=== PATIENT | male | born 1985 | race Caucasian/White ===

== ENCOUNTER 2020-04-22 15:42 | Emergency (ER) | payer OTHER, SELFPAY ==
[2020-04-22 15:43] VITALS: BP 133/70; PULSE 84; RESP 18; TEMP 36.6; O2SAT 97; BMI 29.5
--- NOTE | 2020-04-22 15:49 | XR_ITS ---
EXAMINATION: XR CHEST CLINICAL INFORMATION: Shortness of breath COMPARISON: 02/13/2020 TECHNIQUE: 2 views of the chest were obtained. FINDINGS: Since the prior exam, the right-sided infiltrate has completely resolved. At this point in time, no significant abnormality is noted involving the heart, lungs, mediastinum, bony thorax or soft tissues. IMPRESSION: Unremarkable examination. Resolved right pneumonia.
--- NOTE | 2020-04-22 17:26 | ED_ITS ---
HPI - URI/Sore Throat General Chief Complaint: Upper Respiratory Symptoms Stated Complaint: cough,rib pain,sore throat Time Seen by Provider: 04/22/20 17:26 Source: patient Mode of arrival: ambulatory Limitations: no limitations History of Present Illness HPI Narrative: 34-year-old male presents with chest pain, chest pain with inspiration, shortness of breath with exertion, weakness, and fatigue. He reports that he was diagnosed with pneumonia recently, completed the course of antibiotics, felt a bit better for short period of time and now is feeling worse. He states he feels like he is pale, has a sore throat, cough, and burning stabbing pain in his chest when he takes a deep breath. He does have a history of AFib, does not report any sick contacts and was tested negative for COVID-19 at the time he was diagnosed with pneumonia approximately 1 month ago. He feels that he goes in and out of palpations particularly on exertion, and shortness of breath and chest pain increases as he walks. He does not report any abdominal pain, abdominal distention, dysuria, hematuria, fevers, chills, nausea, vomiting, diarrhea, constipation, and edema. MD elicited complaint: cough and sore throat Pertinent past history: pneumonia Onset (ago): day(s) ( Several) Consistency: intermittent and progressively worsening Severity: moderate Pain scale (0-10): 6 Description of mucous: clear Able to tolerate fluids by mouth: Yes Exacerbating factors: exertion, deep breaths and leaning forward Relieving factors: nothing Associated symptoms: cough, chest pain and shortness of breath Treatments prior to arrival: none Related Data Previous Rx's Medication Instructions Recorded tramadol 50 mg PO Q8H PRN #7 tab 04/22/20 Allergies Allergy/AdvReac Type Severity Reaction Status Date / Time diphenhydramine Allergy Unknown AGITATION Unverified 03/30/20 18:56 [From BENADRYL] metoclopramide [From REGLAN] Allergy Unknown AGITATION Unverified 03/30/20 18:56 prochlorperazine Allergy Unknown AGITATION Unverified 03/30/20 18:56 [From COMPAZINE] compazine Allergy Unknown Uncoded 08/11/19 00:00 IV benadryl Allergy Unknown Uncoded 08/11/19 00:00 reglan Allergy Unknown Uncoded 08/11/19 00:00 Review of Systems Review of Systems: Constitutional: No Weight loss, No Fever, No Chills, No Night Sweats, No Fatigue, No Malaise ENT/Mouth: No Hearing loss, No Ear Pain, No Nasal Congestion, No Sinus Pain, No Hoarseness, No sore throat, No Rhinorrhea, No Swallowing Difficulty Eyes: No Eye Pain, No Swelling, No Redness, No Foreign Body, No Discharge, No Vision Changes Cardiovascular: pos Chest Pain, pos SOB, positive shortness of breath and increased chest pain on exertion with palpitations, No Orthopnea, No Edema Respiratory: positive Cough with clear Sputum, No Wheezing, No Smoke Exposure Gastrointestinal: epigastric abdominal pain, no Nausea, No Vomiting, No Diarrhea, No Hematochezia, No Melena Genitourinary: No irregular bleeding, No Dysuria, No Urinary Frequency, No Hematuria, No Urinary Incontinence, No Urgency, No Flank Pain, No Urinary Flow Changes, No Hesitancy Musculoskeletal: No joint pain, No Myalgias, No Joint Swelling Skin: No Skin Lesions, No rash Neuro: No Weakness, No Numbness, No Paresthesias, No Loss of Consciousness, No Dizziness, No Headache Psych: No Anxiety/Panic, No Depression, No SI/HI/AH/VH Heme/Lymph: No Bruising, No Bleeding,No Lymphadenopathy Endocrine: No Polyuria, No Polydipsia, No Temperature Intolerance PMFSH Past Medical History Attestation statement: The following information was validated with the patient. Source: old records reviewed Medical History Afib Anxiety Depression GERD (gastroesophageal reflux disease) Pneumonia Social History Social History Advance Directives: No Advance Directives Information Provided: Yes Physical Exam Vital Signs: Vital Signs: Vital Signs Temp Pulse Resp BP Pulse Ox 04/22/20 22:25 90 16 145/86 H 99 04/22/20 19:48 82 18 145/81 H 99 04/22/20 15:43 97.9 F 84 18 133/70 97 Body Mass Index 29.5 Appearance: Alert. Oriented X3. mild distress, pallor. Eyes: Pupils equal, round and reactive to light. ENT: Pharynx normal. Neck: Normal inspection. Neck supple. CVS: Normal heart rate and rhythm. Pulses normal. Respiratory: chest pain on inspiration, No respiratory distress. Breath sounds normal. Abdomen: Soft and nontender. Skin: Skin warm and dry. Normal skin color. Normal skin turgor. Extremities: No lower extremity edema. No lower extremity edema. Neuro: Oriented X 3. No motor deficit. No sensory deficit. Course Course Course Narrative: as patient was recently diagnosed with pneumonia, symptoms subsided and now have recurred and he feels worse, we will rule out ACS, pneumonia, PE. H&H is 13.7/41.2 consistent with lab values dating back to December 28, 2018, ALT in alk-phos are elevated 61 and 188 which is consistent with prior values dating back to 10/14/2018. CT angio is negative, patient was updated on this result. Detailed description regarding his need for follow-up with primary care provider for elevated liver enzymes and anemia. Patient verbalized understanding of and agrees to plan of care discharge home. MDM - URI/Sore Throat MDM Narrative Medical decision making narrative: ACS, PE Differential Diagnosis Differential diagnosis: Likely upper respiratory infection and bronchitis Medical Records Attestation: I reviewed the patient's medical records. Lab Data Attestation: I reviewed the patient's lab results. Result diagrams: 04/22/20 17:58 04/22/20 17:58 Labs: Lab Results 04/22/20 04/22/20 04/22/20 Range/Units 17:57 17:58 17:58 WBC 6.4 (4.8-10.8) X10*3/uL RBC 4.97 (4.60-5.80) X10*6/uL Hgb 13.7 L (14.0-18.0) g/dl Hct 41.2 L (42-52) % MCV 82.9 (80-98) fL MCH 27.6 (27.0-33.0) pg MCHC 33.3 (31.0-36.0) g/dl RDW 13.5 (11.0-16.0) % Plt Count 249 (160-400) X10*3/uL MPV 8.4 L (9.4-12.4) fL Immature Gran % (Auto) 0.3 (0.0-0.4) % Neut % (Auto) 64.2 (45-73) % Lymph % (Auto) 26.0 (20-40) % Rogers % (Auto) 7.5 (2-11) % Eos % (Auto) 1.7 (0-4) % Baso % (Auto) 0.3 (0-2) % Lymph # (Auto) 1.7 (1.2-4.9) X10*3/uL Rogers # (Auto) 0.5 (0.1-1.2) X10*3/uL Eos # (Auto) 0.1 (0.0-0.4) X10*3/uL Baso # (Auto) 0.0 (0.0-0.2) X10*3/uL Abs Immat Gran (auto) 0.02 (0.00-0.03) X10*3/uL Absolute Neuts (auto) 4.1 (2.0-8.3) X10*3/uL Absolute Nucleated RBC 0.000 (0.0-0.012) X10*3/uL Nucleated RBC % (auto) 0.0 (0.0-0.2) /100WBC Sodium 140 (135-145) mmol/L Potassium 3.9 (3.3-5.1) mmol/l Chloride 105 (96-108) mmol/L Carbon Dioxide 27 (22-29) mmol/L Anion Gap 12 (12-20) BUN 11 (9-16) mg/dL Creatinine 0.81 (0.5-1.4) mg/dL Estim Creat Clear Calc 140.3 Estimated GFR > 60 Random Glucose 89 (60-115) mg/dL Lactic Acid 0.8 (0.5-2.0) mmol/L Calcium 9.0 (8.4-10.2) mg/dL Magnesium 2.4 (1.6-2.6) mg/dL Total Bilirubin 0.3 (0.0-1.0) mg/dL Direct Bilirubin < 0.2 (0.0-0.5) mg/dL AST 22 (5-37) U/L ALT 61 H (0-40) U/L Alkaline Phosphatase 188 H (39-117) U/L Troponin I High Sens (<3.5-35.0) ng/L Total Protein 6.7 (6.5-8.0) g/dL Albumin 4.2 (3.5-5.0) g/dL Lipase 11 (8-78) U/L TSH 1.52 (0.32-4.0) mIU/mL 04/22/20 Range/Units 17:58 WBC (4.8-10.8) X10*3/uL RBC (4.60-5.80) X10*6/uL Hgb (14.0-18.0) g/dl Hct (42-52) % MCV (80-98) fL MCH (27.0-33.0) pg MCHC (31.0-36.0) g/dl RDW (11.0-16.0) % Plt Count (160-400) X10*3/uL MPV (9.4-12.4) fL Immature Gran % (Auto) (0.0-0.4) % Neut % (Auto) (45-73) % Lymph % (Auto) (20-40) % Rogers % (Auto) (2-11) % Eos % (Auto) (0-4) % Baso % (Auto) (0-2) % Lymph # (Auto) (1.2-4.9) X10*3/uL Rogers # (Auto) (0.1-1.2) X10*3/uL Eos # (Auto) (0.0-0.4) X10*3/uL Baso # (Auto) (0.0-0.2) X10*3/uL Abs Immat Gran (auto) (0.00-0.03) X10*3/uL Absolute Neuts (auto) (2.0-8.3) X10*3/uL Absolute Nucleated RBC (0.0-0.012) X10*3/uL Nucleated RBC % (auto) (0.0-0.2) /100WBC Sodium (135-145) mmol/L Potassium (3.3-5.1) mmol/l Chloride (96-108) mmol/L Carbon Dioxide (22-29) mmol/L Anion Gap (12-20) BUN (9-16) mg/dL Creatinine (0.5-1.4) mg/dL Estim Creat Clear Calc Estimated GFR Random Glucose (60-115) mg/dL Lactic Acid (0.5-2.0) mmol/L Calcium (8.4-10.2) mg/dL Magnesium (1.6-2.6) mg/dL Total Bilirubin (0.0-1.0) mg/dL Direct Bilirubin (0.0-0.5) mg/dL AST (5-37) U/L ALT (0-40) U/L Alkaline Phosphatase (39-117) U/L Troponin I High Sens < 3.5 (<3.5-35.0) ng/L Total Protein (6.5-8.0) g/dL Albumin (3.5-5.0) g/dL Lipase (8-78) U/L TSH (0.32-4.0) mIU/mL Imaging Data CT scan - chest: Attestation: I personally reviewed and interpreted this imaging study as follows: Radiologist's impression: FINDINGS: QUALITY OF STUDY/CONTRAST BOLUS: Satisfactory. PULMONARY ARTERIES: No central or segmental pulmonary emboli. THORACIC AORTA: No aneurysm or dissection. LUNG: No focal consolidation, nodules or masses. PLEURA: No pleural effusion or pneumothorax. MEDIASTINUM: Normal heart size. No pericardial effusion. No hilar or mediastinal lymphadenopathy. No evidence of septal bowing or right heart strain. CHEST WALL/AXILLA: No axillary or internal mammary lymphadenopathy. OSSEOUS STRUCTURES: No acute or suspicious osseous abnormality. UPPER ABDOMEN: Unremarkable. No reflux of contrast into the hepatic veins to suggest elevated right heart pressures. IMPRESSION: Unremarkable study. VTE: negative Chest x-ray: Attestation: I personally reviewed and interpreted this imaging study as follows: Radiologist's impression: FINDINGS: Since the prior exam, the right-sided infiltrate has completely resolved. At this point in time, no significant abnormality is noted involving the heart, lungs, mediastinum, bony thorax or soft tissues. IMPRESSION: Unremarkable examination. Resolved right pneumonia. ECG Data Attestation: I personally reviewed and interpreted this ECG as follows: ECG interpretation date: 04/22/20 ECG interpretation time: 17:36 Interpretation: Vent. Rate : 078 BPM Atrial Rate : 078 BPM P-R Int : 148 ms QRS Dur : 112 ms QT Int : 420 ms P-R-T Axes : 064 069 048 degrees QTc Int : 478 ms Normal sinus rhythm Normal ECG When compared with ECG of 06-APR-2020 21:26, NE interval has increased Discharge Plan Discharge Clinical Impression: Chest pain, Elevated liver enzymes Patient Disposition: Home, Self-Care Instructions: Chest Pain (ED) Additional Instructions: you were evaluated for chest pain. You recently treated for pneumonia which raised concern for lung infection. We did a CT angiogram of the lung. You do not have any abnormal findings or indication of pulmonary embolism. Your EKG was normal sinus rhythm. Your troponins, which are cardiac enzymes were negative for acute findings. We did find elevated liver enzymes, which were mildly elevated and have been consistently elevated since October of 2018. you must follow-up with her primary care provider for further investigation. Your hematocrit and hemoglobin were minimally low at 13 0.7/41.2. This has been a consistent finding since December of 2018. please follow-up with primary care provider for further investigation. For pain management, we prescribed tramadol. Tramadol is a narcotic and has high risk for addiction and abuse. Do not drive or operate machinery while taking this medication. This medication may cause drowsiness, increased risk for falls, and cause constipation drink plenty of fluids and use Colace and or MiraLax as needed for regular bowel movements. Thank you for choosing this emergency department for evaluation. Please follow-up with primary care physician as needed. Return to the emergency department for any new, concerning, or worsening symptoms. Prescriptions: New tramadol 50 mg tablet 50 mg PO Q8H PRN (Reason: pain) Qty: 7 RF: 0 Interventions: ED Discharge Assessment Last Done: 04/22/20 22:36 Discharge Date/Time: 04/22/20 23:07
--- NOTE | 2020-04-22 17:27 | ECG_ITS ---
Test Reason : DIFFICULTY BREATHING Blood Pressure : / mmHG Vent. Rate : 078 BPM Atrial Rate : 078 BPM P-R Int : 148 ms QRS Dur : 112 ms QT Int : 420 ms P-R-T Axes : 064 069 048 degrees QTc Int : 478 ms Normal sinus rhythm Normal ECG When compared with ECG of 06-APR-2020 21:26, No significant changes seen Referred By: Kavitha Yo Electronically Signed By:TOMASZ FIGUEROA MD
[2020-04-22 18:04] LABS: MANUAL DIFF FLAG NO
[2020-04-22 18:05] LABS: Basophils Percent Auto 0.3 % (0-2); Eosinophils Absolute Auto 0.1 X10*3/uL (0.0-0.4); Eosinophils Percent Auto 1.7 % (0-4); Hematocrit 41.2 % (42-52); Hemoglobin 13.7 g/dl (14.0-18.0); Imm Gran Abs Auto 0.02 X10*3/uL (0.00-0.03); Imm Gran Pct Auto 0.3 % (0.0-0.4); Lymphocytes Absolute Auto 1.7 X10*3/uL (1.2-4.9); Mean Corpuscular HGB Conc 33.3 g/dl (31.0-36.0); Mean Corpuscular Hemoglobin 27.6 pg (27.0-33.0); Mean Corpuscular Volume 82.9 fL (80-98); Mean Platelet Volume 8.4 fL (9.4-12.4); Monocytes Absolute Auto 0.5 X10*3/uL (0.1-1.2); Monocytes Percent Auto 7.5 % (2-11); Neutrophils Absolute Auto 4.1 X10*3/uL (2.0-8.3); Neutrophils Percent Auto 64.2 % (45-73); Platelet Count 249 X10*3/uL (160-400); Red Blood Count 4.97 X10*6/uL (4.60-5.80); Red Cell Distribution Width 13.5 % (11.0-16.0); White Blood Count 6.4 X10*3/uL (4.8-10.8)
[2020-04-22 18:31] LABS: Lactic Acid 0.8 mmol/L (0.5-2.0)
[2020-04-22 18:37] LABS: Alanine Aminotransferase 61 U/L (0-40); Albumin Level 4.2 g/dL (3.5-5.0); Alkaline Phosphatase 188 U/L (39-117); Anion Gap 12 (12-20); Aspartate Amino Transferase 22 U/L (5-37); Bilirubin Direct < 0.2 mg/dL (0.0-0.5); Bilirubin Total 0.3 mg/dL (0.0-1.0); Blood Urea Nitrogen 11 mg/dL (9-16); Carbon Dioxide 27 mmol/L (22-29); Chloride 105 mmol/L (96-108); Creatinine Clr Calc Pharmacy 140.3; Estimated Glomerular Filt Rate > 60; Glucose Random 89 mg/dL (60-115); Lipase 11 U/L (8-78); Magnesium 2.4 mg/dL (1.6-2.6); Potassium 3.9 mmol/l (3.3-5.1); Sodium 140 mmol/L (135-145); Total Protein 6.7 g/dL (6.5-8.0)
[2020-04-22 18:38] LABS: Troponin-I High Sensitivity < 3.5 ng/L (<3.5-35.0)
[2020-04-22 18:57] LABS: Thyroid Stimulating Hormone 1.52 mIU/mL (0.32-4.0)
--- NOTE | 2020-04-22 19:13 | CT_ITS ---
EXAMINATION: CT ANGIOGRAM OF THE CHEST WITH AND WITHOUT CONTRAST (CT PULMONARY ANGIOGRAM FOR PE) CLINICAL INFORMATION: Reason for Exam shortness breath, chest pain on inspiration COMPARISON: Same-day chest radiograph TECHNIQUE: Prior to contrast administration, noncontrast localization images were obtained. Subsequently, multidetector volumetric imaging was performed from the thoracic inlet to below the diaphragms following the administration of 71 mL Omnipaque 350 intravenous contrast. No contrast reaction reported Sagittal, coronal, and MIP oblique sagittal reformatted images were obtained on the CT workstation, uploaded to PACS, and reviewed. This CT examination was performed using dose optimization techniques as appropriate, variously including the following: *Automated exposure control *Adjustment of mA and/or kV according to patient size (this includes techniques or standardized protocols for targeted exams where dose is matched to indication/reason for exam; i.e. extremities or head) *Use of iterative reconstruction technique Total exam dose-length product 401 mGy-cm FINDINGS: QUALITY OF STUDY/CONTRAST BOLUS: Satisfactory. PULMONARY ARTERIES: No central or segmental pulmonary emboli. THORACIC AORTA: No aneurysm or dissection. LUNG: No focal consolidation, nodules or masses. PLEURA: No pleural effusion or pneumothorax. MEDIASTINUM: Normal heart size. No pericardial effusion. No hilar or mediastinal lymphadenopathy. No evidence of septal bowing or right heart strain. CHEST WALL/AXILLA: No axillary or internal mammary lymphadenopathy. OSSEOUS STRUCTURES: No acute or suspicious osseous abnormality. UPPER ABDOMEN: Unremarkable. No reflux of contrast into the hepatic veins to suggest elevated right heart pressures. IMPRESSION: Unremarkable study. VTE: negative
--- NOTE | 2020-04-22 19:19 | PC.NURSE ---
Report taken from Natalya, frankie RN resuming care. Pt ambulating to CT with a hennessy/steady gait.
[2020-04-22] MEDS: iohexoL 350 MG/ML 100 ML INFUS..BTL IV (19:27)
--- NOTE | 2020-04-22 19:47 | PC.NURSE ---
Pt returns from CT without incident. Pt resting in bed, reporting CP that started yesterday morning. Pt states it's an 8/ and that it feels like it's gotten worse since arriving at ED. VSS. Continue to monitor.
[2020-04-22 19:48] VITALS: BP 145/81; PULSE 82; RESP 18; O2SAT 99
[2020-04-22 22:25] VITALS: BP 145/86; PULSE 90; RESP 16; O2SAT 99
[2020-04-22] MEDS: traMADoL HCL 50 MG TABLET PO (22:33)
--- NOTE | 2020-04-22 22:35 | PC.NURSE ---
Pt medicated with Tramadol per EMAR. DC paperwork provided to patient.
== END 2020-04-22 23:07 | disposition home or self-care (01) ==
PROVIDERS: Nurse Practitioner Family; Emergency Provider Emergency Medicine Emergency Medical Services; PCP Nurse Practitioner Family
DX: R07.9 Chest pain, unspecified (principal); R79.89 Other specified abnormal findings of blood chemistry; Z20.828 Contact with and (suspected) exposure to other viral communicable diseases
CPT/HCPCS: 36415; 71046; 71275; 80048; 80076; 83605; 83690; 83735; 84443; 84484; 85025; 87040; 93005; 99284

== ENCOUNTER 2020-04-24 11:37 | Emergency (ER) | payer OTHER, SELFPAY ==
--- NOTE | 2020-04-24 11:46 | ED.CHESTPAIN ---
HPI - Chest Pain General Chief Complaint: Chest Pain Stated Complaint: CHEST PAIN Time Seen by Provider: 04/24/20 11:46 Source: patient and old records reviewed Mode of arrival: ambulatory Limitations: no limitations History of Present Illness MD complaint: chest pain Onset (ago): day(s) (4) Timing of current episode: constant Prior episodes: No Onset: during rest Pain location: right chest Pain radiation: none Severity: moderate Quality: aching Relieving factors: nothing Exacerbating factors: palpation and movement Context: recent illness Associated symptoms: dyspnea Treatment prior to arrival: other (prescribed tramadol) Risk Factors Coronary artery disease risk factors: none Thoracic aortic dissection risk factors: none Related Data Previous Rx's Medication Instructions Recorded tramadol 50 mg PO Q8H PRN #7 tab 04/22/20 cyclobenzaprine 10 mg PO TID PRN #14 tab 04/24/20 prednisone 40 mg PO DAILY 5 Days #10 tab 04/24/20 Allergies Allergy/AdvReac Type Severity Reaction Status Date / Time diphenhydramine Allergy Unknown AGITATION Unverified 03/30/20 18:56 [From BENADRYL] metoclopramide [From REGLAN] Allergy Unknown AGITATION Unverified 03/30/20 18:56 prochlorperazine Allergy Unknown AGITATION Unverified 03/30/20 18:56 [From COMPAZINE] compazine Allergy Unknown Uncoded 08/11/19 00:00 IV benadryl Allergy Unknown Uncoded 08/11/19 00:00 reglan Allergy Unknown Uncoded 08/11/19 00:00 Review of Systems Review of Systems: Constitutional : No Weight loss, No Fever, No Chills ENT/Mouth : No sore throat, No Rhinorrhea Eyes: No Eye Pain, No Swelling Cardiovascular : pos Chest Pain, pos SOB, no Dyspnea on Exertion, No Orthopnea, No Edema, No Palpitations Respiratory : No Cough, No Sputum Gastrointestinal : pos Nausea, No Vomiting, No Diarrhea, No abdominal Pain, No Hematochezia, No Melena Genitourinary : No Dysuria, No Urinary Frequency Musculoskeletal : No joint pain, No Myalgias, No Joint Swelling Skin : No Skin Lesions, No rash Neuro : No Weakness, No Numbness, No Dizziness, No Headache Psych : No Anxiety/Panic, No Depression Heme/Lymph: No Bruising, No Lymphadenopathy All other systems reviewed and are negative PMFSH Past Medical History Medical History Afib Anxiety Depression GERD (gastroesophageal reflux disease) Pneumonia Social History Social History Alcohol intake: former Smoked in Last 30 Days: No Use of substances other than those prescribed or required for medical reasons: No Physical Exam Vital Signs: Vital Signs: Vital Signs Temp Pulse Resp BP Pulse Ox 04/24/20 11:47 98.1 F 99 16 139/90 H 98 Body Mass Index 29.5 Appearance: Alert. Oriented X3. No acute distress. anxious Eyes: Pupils equal, round and reactive to light. ENT: Pharynx normal. Neck: Normal inspection. Neck supple. CVS: Normal heart rate and rhythm. Pulses normal. R sided costochondral junction ttp reproduces pain Respiratory: No respiratory distress. Breath sounds normal. Abdomen: Soft and nontender. Skin: Skin warm and dry. Normal skin color. Normal skin turgor. Extremities: No lower extremity edema. No calf ttp Neuro: Oriented X 3. No motor deficit. No sensory deficit. Course Reevaluation(s) Reevaluation #1: negative troponin and CRP, negative EKG stable for DC MDM - Chest Pain MDM Narrative Medical decision making narrative: 34 yo male without significant medical history here with reproduceable CWP following URI just had negative workup including EKG, negative CTA for PE/dissection, troponin negative sent home with tramadol, PERC negative negative CTA as well, pain and history seems consistent with costochondritis - repeat EKG and troponin, start on MRs, anti inflammatories, dispo per results and findings Lab Data Labs: Lab Results 04/24/20 04/24/20 Range/Units 12:00 12:00 Troponin I High Sens < 3.5 (<3.5-35.0) ng/L C-Reactive Protein 0.40 (< or = 0.50) mg/dL ECG Data ECG #1: Attestation: I personally reviewed and interpreted this ECG as follows: ECG interpretation date: 04/24/20 ECG interpretation time: 12:05 Interpretation: Rate: 89 Rhythm: NSR [place]: normal Normal P waves. Normal TERI. Normal QRS complex. ST T wave : normal qTC: mild prolongation prior studies: artifact present, no acute ischemia The study has been interpreted contemporaneously by me. . Discharge Plan Discharge Clinical Impression: Acute costochondritis Patient Disposition: Home, Self-Care Instructions: Costochondritis (ED) Prescriptions: New cyclobenzaprine 10 mg tablet 10 mg PO TID PRN (Reason: muscle spasm) Qty: 14 RF: 0 prednisone 20 mg tablet 40 mg PO DAILY 5 Days Qty: 10 RF: 0 No Action tramadol 50 mg tablet 50 mg PO Q8H PRN (Reason: pain) Qty: 7 RF: 0 Referrals: Coco Antoine, ASSISTANT FRONT OFFICE MANAGER [Primary Care Provider] - 2 days (if not better 2 days) Stand Alone Forms: Work/School Release
[2020-04-24 11:47] VITALS: BP 139/90; PULSE 99; RESP 16; TEMP 36.7; O2SAT 98; BMI 29.5
--- NOTE | 2020-04-24 11:53 | ECG_ITS ---
Test Reason : CHEST PAIN Blood Pressure : / mmHG Vent. Rate : 089 BPM Atrial Rate : 089 BPM P-R Int : 118 ms QRS Dur : 106 ms QT Int : 396 ms P-R-T Axes : 053 068 045 degrees QTc Int : 481 ms Normal sinus rhythm Intra-ventricular conduction delay Borderline ECG When compared with ECG of 22-APR-2020 17:36, No significant change was found Referred By: Keli Morton Electronically Signed By:TOMASZ FIGUEROA MD
[2020-04-24] MEDS: Ketorolac Tromethamine 60 MG/2 ML VIAL IM (12:24)
[2020-04-24] MEDS: diazePAM 5 MG TABLET PO (12:24)
[2020-04-24 12:29] VITALS: PULSE 90
[2020-04-24 12:38] LABS: Troponin-I High Sensitivity < 3.5 ng/L (<3.5-35.0)
[2020-04-24 13:00] VITALS: BP 137/84; PULSE 88; RESP 16; TEMP 36.8; O2SAT 99
== END 2020-04-24 13:10 | disposition home or self-care (01) ==
LOC: HO.ED 13:11
PROVIDERS: Emergency Provider Emergency Medicine; PCP Nurse Practitioner Family
DX: M94.0 Chondrocostal junction syndrome [Tietze] (principal); I48.91 Unspecified atrial fibrillation; K21.9 Gastro-esophageal reflux disease without esophagitis; Z87.01 Personal history of pneumonia (recurrent); F41.9 Anxiety disorder, unspecified; Z79.899 Other long term (current) drug therapy
CPT/HCPCS: 84484; 86140; 93005; 96372; 99284

== ENCOUNTER 2020-04-26 23:21 | Emergency (ER) | payer OTHER, SELFPAY ==
[2020-04-26 23:26] VITALS: BP 148/85; PULSE 135; RESP 20; TEMP 36.7; O2SAT 98; BMI 29.5
[2020-04-26 23:59] VITALS: BP 127/71; PULSE 110; PULSE 113; RESP 18; O2SAT 97
--- NOTE | 2020-04-27 00:24 | ECG_ITS ---
Test Reason : TACHYCARDIA Blood Pressure : / mmHG Vent. Rate : 102 BPM Atrial Rate : 102 BPM P-R Int : 126 ms QRS Dur : 114 ms QT Int : 364 ms P-R-T Axes : 060 087 054 degrees QTc Int : 474 ms Sinus tachycardia Otherwise normal ECG When compared with ECG of 24-APR-2020 11:46, No significant change was found Referred By: Fabrice Marcum Electronically Signed By:TOMASZ FIGUEROA MD
--- NOTE | 2020-04-27 00:28 | ED_ITS ---
HPI - Arrhythmia/Palpitations General Chief Complaint: Arrhythmia/Palpitations Stated Complaint: afib? Time Seen by Provider: 04/27/20 00:17 Source: patient Mode of arrival: ambulatory Limitations: no limitations History of Present Illness HPI narrative: patient's history of paroxysmal lone AFib happened 6- 7 times in last 8 years sometimes he has to go to hospital for defibrillation not on any medication today an hour prior to arrival patient noticed similar attack of palpitation heart rate was about 110 felt little dizzy and anxious by the time he came to the ER episode ended and now is in sinus rhythm patient has the increased caffeine intake history no cocaine use patient denies any chest pain MD complaint: rapid heart beat Onset (ago): hour(s) (1) Duration: constant Severity: moderate Context: occurred during rest Arrhythmia history: atrial fibrillation Associated symptoms: anxiety Related Data Previous Rx's Medication Instructions Recorded tramadol 50 mg PO Q8H PRN #7 tab 04/22/20 cyclobenzaprine 10 mg PO TID PRN #14 tab 04/24/20 prednisone 40 mg PO DAILY 5 Days #10 tab 04/24/20 Allergies Allergy/AdvReac Type Severity Reaction Status Date / Time diphenhydramine Allergy Unknown AGITATION Unverified 03/30/20 18:56 [From BENADRYL] metoclopramide [From REGLAN] Allergy Unknown AGITATION Unverified 03/30/20 18:56 prochlorperazine Allergy Unknown AGITATION Unverified 03/30/20 18:56 [From COMPAZINE] compazine Allergy Unknown Uncoded 08/11/19 00:00 IV benadryl Allergy Unknown Uncoded 08/11/19 00:00 reglan Allergy Unknown Uncoded 08/11/19 00:00 Review of Systems Review of Systems: REVIEW OF SYSTEMS: Pertinent positives and negatives are stated above in the history. GEN: no fevers, chills, fatigue HEENT: no nasal congestion, sore throat, ear pain NEURO: no headache, focal weakness PULM: no cough, shortness of breath CV: no chest pain, palpitations, LE edema ABD: no abdominal pain, nausea, vomiting, diarrhea : no dysuria, urgency, frequency SKIN: no rash ROS otherwise negative x 10 PMFSH Past Medical History Medical History Afib Anxiety Depression GERD (gastroesophageal reflux disease) Pneumonia Surgical History Hx of appendectomy Hx of cholecystectomy Social History Social History Alcohol intake: former Smoked in Last 30 Days: No Use of substances other than those prescribed or required for medical reasons: No Advance Directives: No Advance Directives Information Provided: No Physical Exam Vital Signs: Vital Signs: Vital Signs Temp Pulse Resp BP Pulse Ox 04/27/20 00:45 99 18 133/87 98 04/26/20 23:59 110 H 18 127/71 97 04/26/20 23:26 98.0 F 135 H 20 148/85 H 98 Body Mass Index 29.5 Appearance: Alert. Oriented X3. No acute distress. Eyes: Pupils equal, round and reactive to light. ENT: Pharynx normal. Neck: Normal inspection. Neck supple. CVS: Normal heart rate and rhythm. Pulses normal. Respiratory: No respiratory distress. Breath sounds normal. Abdomen: Soft and nontender. Skin: Skin warm and dry. Normal skin color. Normal skin turgor. Extremities: No lower extremity edema. Good range of movement Neuro: Oriented X 3. No motor deficit. No sensory deficit. Course Course Course Narrative: patient's sinus rhythm after arrival heart rate fluctuating between 100 and 104 was anxious at home would like to go home follow-up with personal counselor patient refused any labs at this time MDM - Arrhythmia/Palpitations ECG Data Attestation: I personally reviewed and interpreted this ECG as follows: ECG interpretation date: 04/27/20 Interpretation: sinus tachycardia with heart rate of 102 normal axis normal VA interval and QRS duration no acute STT wave changes Discharge Plan Discharge Clinical Impression: Atrial fibrillation Qualifiers: Atrial fibrillation type: paroxysmal Qualified Code(s): I48.0 - Paroxysmal atrial fibrillation Patient Disposition: Home, Self-Care Instructions: A-fib (Atrial Fibrillation) (ED) Additional Instructions: decrease caffeine intake and follow with personal counselor Prescriptions: No Action tramadol 50 mg tablet 50 mg PO Q8H PRN (Reason: pain) Qty: 7 RF: 0 cyclobenzaprine 10 mg tablet 10 mg PO TID PRN (Reason: muscle spasm) Qty: 14 RF: 0 prednisone 20 mg tablet 40 mg PO DAILY 5 Days Qty: 10 RF: 0
--- NOTE | 2020-04-27 00:43 | PC.NURSE ---
pt states i think it was a panic attack. Dr. Leary aware and is discharging pt to home. No IV's or labs are being drawn as per MD's orders. Pt awaiting for md's dispo.
[2020-04-27 00:45] VITALS: BP 133/87; PULSE 99; RESP 18; O2SAT 98
== END 2020-04-27 01:13 | disposition home or self-care (01) ==
PROVIDERS: Emergency Provider Internal Medicine; PCP Nurse Practitioner Family
DX: I48.0 Paroxysmal atrial fibrillation (principal); F41.9 Anxiety disorder, unspecified; Z87.01 Personal history of pneumonia (recurrent)
CPT/HCPCS: 93005; 99284; 99285

== ENCOUNTER 2020-05-08 09:38 | Outpatient (RCR) | payer OTHER, SELFPAY ==
--- NOTE | 2020-05-09 13:18 | MHC.OT.OEV ---
[address] [phone] F: [phone] Occupational Therapy Evaluation Diagnosis: MEDIAL EPICONDYLITIS Date of Onset: 03/22/20 Attending Provider: Trey Cardenas History of Current Condition: Pt REPORTS LIFTING A 75 POUND WHEEL OF CABLE, RIGHT ARM SLIPPED WHILE ATTEMPTING TO LIFT HEAVY LOAD. TWISTED R ARM INTO DIFFERENT POSITION. REPORTS INITIAL ONSET OF PAIN AND DIFFICULTIES LIFTING ITEMS. Significant Medical History: MIGRAINES Precautions/Contraindications: Patient Goals: TO GO BACK TO WORK Hand Dominance: Left Outcome Measures: 5 Prior Level of Function and Occupation Living Situation: LIVES WITH SPOUSE, 11 YEAR OLD SON AND 18 YEAR OLD STEP DAUGHTER. MULTIPLE ANIMALS. 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 DUTIES INCLUDE LIFTING 50 POUNDS, OR TEAM LIFT FOR OBJECTS GREATER THAN 75 POUNDS. Leisure Activities/Hobbies: PLAYING WITH SON, RELAXING AND VIDEO GAMES Current Level of Function and Occupation Self-Care and Home Care: CURRENTLY OOW SINCE DATE OF INJURY SOME DIFFICULTIES WITH LIFTING GROCERIES (>20 POUNDS) Employment Status: DENIES Leisure Activites/Hobbies: Driving: DENIES DIFFICULTIES Pain Assessment Pain Score: 4 Pain Scale Used: Numeric (0 - 10) Pain Location and Description: R MEDIAL ELBOW; SHARP STABBING BURNING 1-2/10 AT REST, 3-4/10 WITH ACTIVITY R POSTERIOR SHOULDER, TRAPS; ACHY 1-2/10 AT REST, 3-4/10 WITH ACTIVITY Skin and Soft Tissue Assessment Skin and Soft Tissue: Comments: UNREMARKABLE Sensory Assessment Temperature: WFL Light Touch: WFL Edema Assessment Upper Extremity: WNL Lower Extremity: WNL Comments: CIRCUMFRENCE OF ELBOW, AT [place] R 28.1 CM, L 28.3 CM CIRCUMFRENCE 20 CM PROXIMAL TO U.S. R 28.5 CM, L 28.9 CM Dexterity Assessment Dexterity: WFL Special Tests Comments: AROM(PROM) Strength Shoulder Flexion: R 144, L 172 Extension: Abduction: Internal Rotation: External Rotation: Comments: PAIN WITH R SH FLEX Flexion: Extension: Abduction: Internal Rotation: External Rotation: Comments: Elbow Flexion: R 145, L 148 Extension: R 6, L 8 Pronation: Supination: Comments: WFL Flexion: Extension: Pronation: Supination: Comments: Wrist Flexion: Extension: Ulnar Deviation: Radial Deviation: Comments: WFL Flexion: Extension: Ulnar Deviation: Radial Deviation: Comments: Digits Index MCP: PIP: DIP: Long MCP: PIP: DIP: Ring MCP: PIP: DIP: Small MCP: PIP: DIP: Comments: Gross Grasp: R 88, L 103 (TESTING PERFORMED ELBOW FLEXED 90 DEGREES AT SIDE) Lateral Pinch: R 14, L 14 Two-Point Pinch: R 19, L 18 Three-Jaw Mannie: R 20, L 20 Comments: ELBOW EXTENDED R 98 POUNDS, L 115 POUNDS Patient Education Primary Language: Cook Islander Assembler Type Bar And Segment Required: No Current Knowledge: Understands information with skills for self-management Teaching Method: Demonstration Handouts Verbal Education Needs Identified on Evaluation: ADL's Disease Information Equipment Use Exercise Pain Safety How did patient/family demonstrate learning? Patient demonstrates Patient verbalizes Barriers to Learning: None Readiness for Learning: Accepting Who was educated? Patient Plan of Care Assessment: MOHIT IS ABOUT 6.5 WEEKS FOLLOWING INJURY TO R SHOULDER AND ELBOW, WHEN A LARGE 75 POUND CABLE WHEEL SLIPPED OUT OF HIS RIGHT HAND. HE HAS HAD GRADUAL IMPROVEMENT IN SYMPTOMS, YET CONTINUES TO HAVE DIFFICULTIES WITH LIFTING LOADS HEAVIER THAN 20 POUNDS, WELL ONGOING PAIN. HE REPORTS A 5% LIMITATION PER THE QUICK DASH ASSESSMENT. STG Duration: 3 WEEKS Short Term Goals: IND HEP IND USE OF HEAT/ICE IND STM/ DTM RUE R GROSS GRASP >95 POUNDS DEMO GOOD LIFTING TECHNIQUES AND BODY MECHANICS WITH LIFTING >20 POUNDS REPORT <4/10 PAIN WITH LIFTING >20 POUNDS R SH FLEX >160 DEGREES LTG Duration: Obstetrical Tech Goals: SEE ABOVE Frequency and Duration: The patient will be seen 2x/WEEK FOR 3 WEEKS Treatment Plan: Therapeutic Exercise Therapeutic Activity Home Exercise Program Neuro Re-ed Patient Education ADL Training Ultrasound NMES Iontophoresis MHP Cold Packs Joint Mobilization Soft Tissue Mobilization Kinesiotaping Electronically Signed By: CIERRA MIR M.ED OTR/L Please sign and return to therapist, Thank you for your referral.
--- NOTE | 2020-05-29 07:55 | MHC.OT.DC ---
[address] [phone] F: [phone] Occupational Therapy Discharge Note Provider: Trey Cardenas Diagnosis: MEDIAL EPICONDYLITIS Date of Evaluation: 05/08/20 Date of Discharge: 05/29/20 Treatments to Date: 1 Cancellations to Date: No Shows to Date: 5 Discharge Status: Visit Non-compliance Discharge Summary: MOHIT ATTENDED HIS OT EVALUATION. DESPITE FOLLOW UP PHONE CALLS, Pt DID NOT FOLLOW THROUGH WITH HIS TREATMENT SESSIONS. HE WILL BE DISCHARGED DUE TO THE CORE ATTENDANCE POLICY OF >2 NO SHOWS. Electronically Signed By: Storm VALENTINEED, OTR/L Please Sign and return to therapist, thank you for your referral.
== END 2020-05-29 07:57 | disposition other institution (70) ==
LOC: HO.OT 09:38
PROVIDERS: Visit Provider Physician Assistant
DX: S43.491D Other sprain of right shoulder joint, subsequent encounter (principal); M77.01 Medial epicondylitis, right elbow; M79.18 Myalgia, other site
CPT/HCPCS: 97110; 97140; 97166

== ENCOUNTER 2020-06-05 14:27 | Emergency (ER) | payer OTHER, SELFPAY ==
[2020-06-05 14:44] VITALS: BP 154/77; PULSE 86; RESP 16; TEMP 36.2; O2SAT 98; BMI 29.5
--- NOTE | 2020-06-05 15:42 | PC.NURSE ---
PT EXPERIENCING MIGRAINE X 4 DAYS, CHRONIC ISSUE. PRESSURE BEHIND EYES, R ANGLICAN. SENS TO LIGHT & SOUND. TAKING IMITREX AND IBU TODAY. SEES [facility] FOR NEURO, HAS APPT TOMORROW. ALSO C/O VOM, NAUSEA WITH PAIN.
--- NOTE | 2020-06-05 15:54 | ED.HA ---
HPI - Headache General Chief Complaint: Headache Stated Complaint: MIRGRAINE Time Seen by Provider: 06/05/20 15:39 Source: patient Mode of arrival: ambulatory Limitations: no limitations History of Present Illness HPI Narrative: 34-year-old male who presents to the emergency department for evaluation of headache. The patient states that he has a history of migraine headaches and normally takes Imitrex and ibuprofen for his headache. He states that over the past 4 days he has had a constant migraine which is not relieved by his usual treatment. States that the headache came on gradually 4 days prior while he was trying to put his child to bed. He describes the headache as a moderate to severe pressure-like sensation in the right temporal area with pain behind his right eye, to the back of his neck and to the top of his head. The patient has had associated nausea and vomiting. He denied fever, cough, myalgias, arthralgias, diarrhea. He states he has had occasional chills associated with this headache. Patient states that he has presented to the emergency department past after he has had persistent headaches has been treated with IV Toradol, morphine, Zofran and IV fluids with relief of his pain. Related Data Previous Rx's Medication Instructions Recorded tramadol 50 mg PO Q8H PRN #7 tab 04/22/20 cyclobenzaprine 10 mg PO TID PRN #14 tab 04/24/20 prednisone 40 mg PO DAILY 5 Days #10 tab 04/24/20 Allergies Allergy/AdvReac Type Severity Reaction Status Date / Time diphenhydramine Allergy Unknown AGITATION Verified 06/05/20 14:48 [From BENADRYL] metoclopramide [From REGLAN] Allergy Unknown AGITATION Verified 06/05/20 14:48 prochlorperazine Allergy Unknown AGITATION Verified 06/05/20 14:48 [From COMPAZINE] Review of Systems Review of Systems: Yes all other systems are reviewed and are negative Constitutional: Constitutional: Reports as per HPI Eyes: Eyes: Reports as per HPI ENT: Reports as per HPI Cardiovascular: Cardiovascular: Reports as per HPI Respiratory: Respiratory: Reports as per HPI Gastrointestinal: Gastrointestinal: Reports as per HPI Genitourinary: Genitourinary: Reports as per HPI Musculoskeletal: Musculoskeletal: Reports as per HPI Integumentary/Breasts: Skin/Breast: Reports as per HPI Neurologic: Reports as per HPI and Reports Abnormal speech present Psychiatric: Psychiatric: Reports as per HPI Allergic/Immunologic: Allergic/Immunologic: Reports as per HPI [facility] Past Medical History Medical History Afib Anxiety Depression GERD (gastroesophageal reflux disease) Migraine Pneumonia Surgical History Hx of appendectomy Hx of cholecystectomy Social History Social History Alcohol intake: former Smoking Status: Never smoker Substance Use Type: Marijuana Advance Directives: Yes Advance Directives on File: Yes Advance Directives Date on File: 05/01/20 Physical Exam Vital Signs: Vital Signs: Last Vital Signs Temp 97.2 F 06/05/20 14:44 Pulse 86 06/05/20 14:44 Resp 16 06/05/20 16:07 BP 154/77 H 06/05/20 14:44 Pulse Ox 98 06/05/20 14:44 Body Mass Index 29.5 Const: General: cooperative, no acute distress, alert and awake Orientation/consciousness: oriented to person, oriented to place and oriented to time Limitations: no limitations HENMT: Head: Yes normal to inspection, Yes normocephalic, Yes atraumatic and Yes other (Moderate right temporal tenderness and right maxillary sinus tenderness) Ears: external ears normal Eyes: General: appearance normal, both eyes and all related structures Periorbital: periorbital findings normal Eyelids: Yes eyelids normal Conjunctivae: conjunctivae normal Sclerae: sclerae normal Corneas: corneas normal Pupils: Equal, round and reactive pupils present Direct Ophthalmoscopy: normal light reflex Neck: Neck: Yes normal visual inspection and Yes supple Lymphatic: no lymphadenopathy noted Chest: Chest palpation & inspection: normal inspection of the chest and normal palpation of entire chest wall Resp: Effort & Inspection: normal respiratory effort, abnormal respiratory pattern, no audible wheezes and no respiratory distress Auscultation: clear to auscultation bilaterally, no crackles, no rales, no rhonchi and no wheezes Cardio: Rate: regular rate Rhythm: regular rhythm Heart sounds: S1 normal heart sound present, S2 normal heart sound present and Murmur heart sound present GI: Inspection: No distended Palpation (GI): Soft to palpation, nontender, no guarding and No hepatosplenomegaly present Auscultation: normal bowel sounds : General: Yes no CVA tenderness Back/Spine/Pelvis: Back: no CVA tenderness Skin: General skin exam: no rashes or lesions noted Lesions: no lesions Rashes: no rashes Wounds: no wounds Neuro: General: oriented to person, oriented to place, oriented to time, gait normal, no focal motor deficits and CN's II-XI intact bilaterally Cranial nerves: Yes Equal, round and reactive pupils present Cognition (Neuro): normal cognition Speech: Abnormal speech present Extrem: General: Yes normal to inspection, Yes full ROM, Yes no pedal edema and Yes no calf tenderness Psych: Appearance: grossly normal Mental Status: mental status grossly normal Speech and movement: Clear speech present Affect: normal affect Thought process: Normal thought process present Course Course Course Narrative: MDM: 34-year-old male with a history chronic migraine headaches normally treated with Imitrex and ibuprofen he presents to the emergency department with a persistent migraine like headache x4 days not relieved by his usual medications, also with associated nausea, vomiting and chills. Physical examination did reveal right temporal area tenderness otherwise is unremarkable with a nonfocal neurologic exam. My impression is that the patient's symptoms are consistent with his migraine syndrome do not think today as an infectious process. I do not think that a CT scan of the head is needed at this time and I did discuss this with the patient and he concurs. Patient was ordered to get the following medications IV morphine 4 mg, Toradol 30 mg and Zofran 4 mg. I also ordered a get normal saline IV x1 L. 1655: The patient states that his pain is come down to 6/10 and he is feeling significantly better. The patient states that he would like to go home at this point he believes that he can sleep and will feel better. He states that has a follow-up appointment tomorrow with his neurologist. Patient was discharged to home with printed instructions which were reviewed with him. He was advised to return emergency department if his symptoms got worse or if he develops any new symptoms are concerning to him. Discharge Plan Discharge Clinical Impression: Migraine Patient Disposition: Home, Self-Care Instructions: Acute Headache (ED) Additional Instructions: You received Toradol 30 mg IV, morphine 4 mg IV and Zofran 4 mg IV. You also received normal saline IV x1 L. These medications will make you sleepy. Do not drive. Go home and rest. Follow-up with your neurologist tomorrow. Please return to the emergency department if her symptoms get worse or if you develop any new symptoms that are concerning to you. Prescriptions: No Action tramadol 50 mg tablet 50 mg PO Q8H PRN (Reason: pain) Qty: 7 RF: 0 cyclobenzaprine 10 mg tablet 10 mg PO TID PRN (Reason: muscle spasm) Qty: 14 RF: 0 prednisone 20 mg tablet 40 mg PO DAILY 5 Days Qty: 10 RF: 0 Referrals: Coco Antoine, DIRECTOR OF CLINICAL APPLICATIONS [Primary Care Provider] - 2 days
[2020-06-05 16:07] VITALS: RESP 16
[2020-06-05] MEDS: Morphine Sulfate 4 MG/ML CARTRIDGE IVPUSH (16:07)
[2020-06-05] MEDS: Ketorolac Tromethamine 15 MG/ML VIAL 30 MG IV (16:07)
[2020-06-05] MEDS: ondansetron HCL 4 MG/2 ML VIAL IVPUSH (16:08)
[2020-06-05] MEDS: 0.9 % Sodium Chloride 1,000 ML 999 ML IV (16:08)
== END 2020-06-05 17:15 | disposition home or self-care (01) ==
PROVIDERS: Emergency Provider Emergency Medicine Emergency Medical Services; PCP Nurse Practitioner Family
DX: G43.909 Migraine, unspecified, not intractable, without status migrainosus (principal); Z79.899 Other long term (current) drug therapy
CPT/HCPCS: 96361; 96374; 96375; 99284; J1885; J2270; J2405

== ENCOUNTER 2020-06-09 10:43 | Emergency (ER) | payer OTHER, SELFPAY ==
[2020-06-09 11:18] VITALS: BP 141/86; PULSE 87; RESP 16; TEMP 36.8; O2SAT 99; BMI 29.5
--- NOTE | 2020-06-09 11:50 | ED.HA ---
HPI - Headache General Chief Complaint: Headache Stated Complaint: MIGRAINE Time Seen by Provider: 06/09/20 11:44 History of Present Illness HPI Narrative: Patient is a 34-year-old male presents today with having headache that is mainly over the right side. It is dull in nature similar to previous bouts of migraine headache. No focal weakness. Positive nausea. Patient attempted local injection of lidocaine did not help. Patient claims that he gets agitated with Reglan. Have Benadryl in the past that had put him to sleep. No coughing or congestion or upper respiratory symptoms. No diaphoresis. Patient is from home. No focal weakness. Pain is similar to previous bouts of migraine. Related Data Previous Rx's Medication Instructions Recorded tramadol 50 mg PO Q8H PRN #7 tab 04/22/20 cyclobenzaprine 10 mg PO TID PRN #14 tab 04/24/20 prednisone 40 mg PO DAILY 5 Days #10 tab 04/24/20 ibuprofen 400 mg PO Q6H PRN #20 tab 06/09/20 ondansetron 4 mg PO TID PRN 5 Days #10 tab 06/09/20 Allergies Allergy/AdvReac Type Severity Reaction Status Date / Time diphenhydramine Allergy Unknown AGITATION Verified 06/05/20 14:48 [From BENADRYL] metoclopramide [From REGLAN] Allergy Unknown AGITATION Verified 06/05/20 14:48 prochlorperazine Allergy Unknown AGITATION Verified 06/05/20 14:48 [From COMPAZINE] Review of Systems Review of Systems: Constitutional: No Weight loss, No Fever, No Chills, No Night Sweats, No Fatigue, No Malaise ENT/Mouth: No Hearing loss, No Ear Pain, No Nasal Congestion, No Sinus Pain, No Hoarseness, No sore throat, No Rhinorrhea, No Swallowing Difficulty Eyes: No Eye Pain, No Swelling, No Redness, No Foreign Body, No Discharge, No Vision Changes Cardiovascular: No Chest Pain, No SOB, No Dyspnea on Exertion, No Orthopnea, No Edema, No Palpitations Respiratory: No Cough, No Sputum, No Wheezing, No Smoke Exposure, No Dyspnea Gastrointestinal: No Nausea, No Vomiting, No Diarrhea, No Constipation, No abdominal Pain, No Hematochezia, No Melena Genitourinary: no irregular bleeding, No Dysuria, No Urinary Frequency, No Hematuria, No Urinary Incontinence, No Urgency, No Flank Pain, No Urinary Flow Changes, No Hesitancy Musculoskeletal: No joint pain, No Myalgias, No Joint Swelling Skin: No Skin Lesions, No rash Neuro: No Weakness, No Numbness, No Paresthesias, No Loss of Consciousness, No Dizziness, positive Headache Psych: No Anxiety/Panic, No Depression, No SI/HI/AH/VH, No Social Issues, Heme/Lymph: No Bruising, No Bleeding,No Lymphadenopathy Endocrine: No Polyuria, No Polydipsia, No Temperature Intolerance [facility] Past Medical History Attestation statement: The following information was validated with the patient. Medical History Afib Anxiety Depression GERD (gastroesophageal reflux disease) Migraine Pneumonia Surgical History Hx of appendectomy Hx of cholecystectomy Social History Social History Alcohol intake: former Smoking Status: Never smoker Substance Use Type: Marijuana Advance Directives: Yes Advance Directives Date on File: 05/01/20 Physical Exam Vital Signs: Vital Signs: Last Vital Signs Temp 98.3 F 06/09/20 11:18 Pulse 74 06/09/20 13:15 Resp 18 06/09/20 13:15 BP 148/96 H 06/09/20 13:15 Pulse Ox 100 06/09/20 13:15 Body Mass Index 29.5 Appearance: Alert. Oriented X3. No acute distress. Eyes: Pupils equal, round and reactive to light. ENT: Pharynx normal. Neck: Normal inspection. Neck supple. No lymph nodes noted. No crepitus CVS: Normal heart rate and rhythm. Pulses normal. Normal S1 and S2 Respiratory: No respiratory distress. Breath sounds normal. No Wheezing. No rales Abdomen: Soft and nontender. No rigidity. No distention. good BS x4 Skin: Skin warm and dry. Normal skin color. Normal skin turgor. Extremities: No lower extremity edema. Neurovascular intact to all extremities. No Lacerations. No Rash Neuro: Oriented X 3. No motor deficit. No sensory deficit. Moving all extermities. No slurred speech MDM - Headache MDM Narrative Medical decision making narrative: Patient given Reglan Benadryl, Toradol. Symptom initially persisted, additional dose of Reglan was given. Small dose of narcotic was given. Pain improved dramatically. Will discharge patient home as symptoms same as previous episodes of migraine. Neurologically intact. No fever no chills no neck pain. In stable condition. No evidence for meningitis.. Differential Diagnosis Differential diagnosis: Likely migraine, tension headache, subarachnoid hemorrhage and meningitis Lab Data Attestation: I reviewed the patient's lab results. Result diagrams: 06/09/20 12:05 06/09/20 12:05 Labs: Lab Results 06/09/20 06/09/20 Range/Units 12:05 12:05 WBC 11.7 H (4.8-10.8) X10*3/uL RBC 4.89 (4.60-5.80) X10*6/uL Hgb 13.7 L (14.0-18.0) g/dl Hct 41.1 L (42-52) % MCV 84.0 (80-98) fL MCH 28.0 (27.0-33.0) pg MCHC 33.3 (31.0-36.0) g/dl RDW 13.2 (11.0-16.0) % Plt Count 265 (160-400) X10*3/uL MPV 8.9 L (9.4-12.4) fL Immature Gran % (Auto) 0.6 H (0.0-0.4) % Neut % (Auto) 86.1 H (45-73) % Lymph % (Auto) 8.3 L (20-40) % [place] % (Auto) 4.9 (2-11) % Eos % (Auto) 0.0 (0-4) % Baso % (Auto) 0.1 (0-2) % Lymph # (Auto) 1.0 L (1.2-4.9) X10*3/uL [place] # (Auto) 0.6 (0.1-1.2) X10*3/uL Eos # (Auto) 0.0 (0.0-0.4) X10*3/uL Baso # (Auto) 0.0 (0.0-0.2) X10*3/uL Abs Immat Gran (auto) 0.07 H (0.00-0.03) X10*3/uL Absolute Neuts (auto) 10.1 H (2.0-8.3) X10*3/uL Absolute Nucleated RBC 0.000 (0.0-0.012) X10*3/uL Nucleated RBC % (auto) 0.0 (0.0-0.2) /100WBC Sodium 141 (135-145) mmol/L Potassium 3.9 (3.3-5.1) mmol/l Chloride 107 (96-108) mmol/L Carbon Dioxide 24 (22-29) mmol/L Anion Gap 14 (12-20) BUN 14 (9-16) mg/dL Creatinine 0.83 (0.5-1.4) mg/dL Estim Creat Clear Calc 136.9 Estimated GFR > 60 Random Glucose 115 (60-115) mg/dL Calcium 8.8 (8.4-10.2) mg/dL Discharge Plan Discharge Clinical Impression: Migraine Patient Disposition: Home, Self-Care Instructions: Migraine Headache (ED) Prescriptions: New ibuprofen 400 mg tablet 400 mg PO Q6H PRN (Reason: pain) Qty: 20 RF: 0 ondansetron 4 mg tablet,disintegrating 4 mg PO TID PRN (Reason: nausea and vomiting) 5 Days Qty: 10 RF: 0 No Action tramadol 50 mg tablet 50 mg PO Q8H PRN (Reason: pain) Qty: 7 RF: 0 cyclobenzaprine 10 mg tablet 10 mg PO TID PRN (Reason: muscle spasm) Qty: 14 RF: 0 prednisone 20 mg tablet 40 mg PO DAILY 5 Days Qty: 10 RF: 0 Referrals: Coco Araujo MD [Primary Care Provider] - 2 days
--- NOTE | 2020-06-09 12:00 | PC.NURSE ---
pt c/o ongoing migraine since visit with neurologist, received lidocaine (?) injection for chronic migraines. seen here recently for similar issue. c/o sens to light & sound, nausea. pressure behind eyes 9/10, worse when ambulating. vs wnl, resp even and nonlaboured. 20G in LFA. medicated as per emr.
[2020-06-09 12:10] LABS: Basophils Percent Auto 0.1 % (0-2); Hematocrit 41.1 % (42-52); Hemoglobin 13.7 g/dl (14.0-18.0); Imm Gran Abs Auto 0.07 X10*3/uL (0.00-0.03); Imm Gran Pct Auto 0.6 % (0.0-0.4); Lymphocytes Percent Auto 8.3 % (20-40); MANUAL DIFF FLAG NO; Mean Corpuscular HGB Conc 33.3 g/dl (31.0-36.0); Mean Platelet Volume 8.9 fL (9.4-12.4); Monocytes Absolute Auto 0.6 X10*3/uL (0.1-1.2); Monocytes Percent Auto 4.9 % (2-11); Neutrophils Absolute Auto 10.1 X10*3/uL (2.0-8.3); Neutrophils Percent Auto 86.1 % (45-73); Platelet Count 265 X10*3/uL (160-400); Red Blood Count 4.89 X10*6/uL (4.60-5.80); Red Cell Distribution Width 13.2 % (11.0-16.0); White Blood Count 11.7 X10*3/uL (4.8-10.8)
[2020-06-09] MEDS: Ketorolac Tromethamine 30 MG/ML VIAL IVPUSH (12:25)
[2020-06-09] MEDS: diphenhydrAMINE HCL 50 MG/ML VIAL 25 MG IVPUSH (12:25)
[2020-06-09] MEDS: Metoclopramide HCl 10 MG/2 ML VIAL 5 MG IVPUSH ×2 (12:26→14:10)
[2020-06-09] MEDS: 0.9 % Sodium Chloride 1,000 ML 999 ML IVCONT ×2 (12:26→13:30)
[2020-06-09 12:29] LABS: Anion Gap 14 (12-20); Blood Urea Nitrogen 14 mg/dL (9-16); Calcium 8.8 mg/dL (8.4-10.2); Carbon Dioxide 24 mmol/L (22-29); Chloride 107 mmol/L (96-108); Creatinine Clr Calc Pharmacy 136.9; Estimated Glomerular Filt Rate > 60; Glucose Random 115 mg/dL (60-115); Potassium 3.9 mmol/l (3.3-5.1); Sodium 141 mmol/L (135-145)
--- NOTE | 2020-06-09 13:12 | PC.NURSE ---
reports no relief from reglan, nausea ongoing. pain ongoing as well.
[2020-06-09 13:15] VITALS: BP 148/96; PULSE 74; RESP 18; O2SAT 100
[2020-06-09] MEDS: HYDROmorphone HCl 0.5 MG/0.5 ML SYRINGE IVPUSH (14:09)
--- NOTE | 2020-06-09 14:14 | PC.NURSE ---
pt reporting no relief from pain/nausea. medicated as per emr.
== END 2020-06-09 15:12 | disposition home or self-care (01) ==
PROVIDERS: Emergency Provider Emergency Medicine Emergency Medical Services; PCP Internal Medicine
DX: G43.909 Migraine, unspecified, not intractable, without status migrainosus (principal); Z87.891 Personal history of nicotine dependence; F12.90 Cannabis use, unspecified, uncomplicated; Z79.899 Other long term (current) drug therapy
CPT/HCPCS: 36415; 80048; 85025; 96361; 96374; 96375; 96376; 99284; J1170; J1200; J1885; J2765

== ENCOUNTER 2020-06-26 16:42 | Emergency (ER) | payer MEDICARE, MEDICAID, SELFPAY ==
[2020-06-26 16:49] VITALS: BP 155/89; PULSE 94; RESP 18; TEMP 36.2; O2SAT 97; BMI 29.5
--- NOTE | 2020-06-26 17:41 | ED_ITS ---
HPI - Headache General Chief Complaint: Headache Stated Complaint: midraine Time Seen by Provider: 06/26/20 17:31 Source: patient Mode of arrival: ambulatory History of Present Illness HPI Narrative: 34-year-old male with a past medical history of AFib, anxiety, depression, GERD, migraines presenting to ED complaining of migraine headache x4 days with associated nausea, vomiting, photophobia, intermittent tingling in LE's, and intermittent blurry vision. Admits symptoms are similar to prior migraines in the past, just worse. Denies sudden onset, has been worsening since started. Denies weakness, fever, head trauma/if falls, visual loss, MD elicited complaint: headache Related Data Previous Rx's Medication Instructions Recorded tramadol 50 mg PO Q8H PRN #7 tab 04/22/20 cyclobenzaprine 10 mg PO TID PRN #14 tab 04/24/20 prednisone 40 mg PO DAILY 5 Days #10 tab 04/24/20 ibuprofen 400 mg PO Q6H PRN #20 tab 06/09/20 ondansetron 4 mg PO TID PRN 5 Days #10 tab 06/09/20 metoclopramide HCl [Reglan] 10 mg PO Q6H PRN #5 tab 06/26/20 Allergies Allergy/AdvReac Type Severity Reaction Status Date / Time diphenhydramine Allergy Unknown AGITATION Verified 06/26/20 16:54 [From BENADRYL] metoclopramide [From REGLAN] Allergy Unknown AGITATION Verified 06/26/20 16:54 prochlorperazine Allergy Unknown AGITATION Verified 06/26/20 16:54 [From COMPAZINE] Review of Systems Review of Systems: Constitutional: No Weight loss, No Fever Eyes: No Eye Pain, No Swelling, No Redness, No Foreign Body, No Discharge, +blurry Vision Changes Cardiovascular: No Chest Pain, No SOB Respiratory: No Cough Gastrointestinal: + Nausea, + Vomiting, No Diarrhea, No Constipation, No Abdominal pain Musculoskeletal: No joint pain, No Myalgias, No Joint Swelling Skin: No Skin Lesions, No rash Neuro: No Weakness, No Numbness, + Paresthesias, + Dizziness, + Headache Yes all other systems are reviewed and are negative Neurologic: Denies Sensory deficit (Neuro) [facility] Past Medical History Attestation statement: The following information was validated with the patient. Medical History Afib Anxiety Depression GERD (gastroesophageal reflux disease) Migraine Pneumonia Surgical History Hx of appendectomy Hx of cholecystectomy Social History Social History Alcohol intake: former Smoking Status: Never smoker Substance Use Type: Marijuana Advance Directives: No Advance Directives Information Provided: No Advance Directives Date on File: 05/01/20 Physical Exam Vital Signs: Vital Signs: Last Vital Signs Temp 97.1 F 06/26/20 16:49 Pulse 83 06/26/20 20:27 Resp 16 06/26/20 20:27 BP 127/78 06/26/20 20:27 Pulse Ox 97 06/26/20 16:49 Body Mass Index 29.5 Const: General: cooperative and healthy appearing Orientation/consciousness: patient oriented x3 Limitations: no limitations HENMT: Head: Yes normal to inspection Ears: hearing grossly normal bilaterally General nose exam: Normal external nose present Face and sinus: Yes normal facial exam Eyes: General: appearance normal, both eyes and all related structures Pupils: Equal, round and reactive pupils present EOM: EOMs intact bilaterally Neck: Neck: Yes normal visual inspection and Yes no meningeal signs Resp: Effort & Inspection: normal respiratory effort Cardio: Rate: regular rate GI: Inspection: Yes normal to inspection Palpation (GI): Soft to palpation, nontender, no guarding and not rigid Skin: Rashes: no rashes Wounds: no wounds Neuro: General: patient oriented x3, tone normal, moves all extremities, no meningeal signs, no focal motor deficits and CN's II-XI intact bilaterally Cranial nerves: Yes Equal, round and reactive pupils present Cognition (Neuro): normal cognition Gait exam (Neuro): Normal gait present Sensory Exam: No Sensory deficit (Neuro) Coordination: [id number] test normal and Romberg test negative Extrem: General: Yes normal to inspection Course Course Course Narrative: * Labs unremarkable * 2019-On re-evaluation patient initially on cell phone, reports only mild improvement in symptoms. IV Solu-Medrol ordered * 2043-- on re-evaluation patient playing on phone reports symptomatic improvement. Feels safe for discharge home at this time. Will discharge with Reglan, reports has all other medications at home MDM - Headache MDM Narrative Medical decision making narrative: 34-year-old male with a past medical history of AFib, anxiety, depression, GERD, migraines presenting to ED complaining of migraine headache x4 days with associated nausea, vomiting, photophobia, intermittent tingling in LE's, and intermittent blurry vision. On exam VSS, NAD/well-appearing, no focal neuro deficits. No weakness. Likely migraine headache. Low concern for meningitis/encephalitis, ICH or SAH Plan: Labs, symptomatic therapy/reassess Lab Data Result diagrams: 06/26/20 17:48 06/26/20 17:48 Labs: Lab Results 06/26/20 06/26/20 Range/Units 17:48 17:48 WBC 6.2 (4.8-10.8) X10*3/uL RBC 5.07 (4.60-5.80) X10*6/uL Hgb 14.2 (14.0-18.0) g/dl Hct 43.1 (42-52) % MCV 85.0 (80-98) fL MCH 28.0 (27.0-33.0) pg MCHC 32.9 (31.0-36.0) g/dl RDW 13.7 (11.0-16.0) % Plt Count 221 (160-400) X10*3/uL MPV 8.7 L (9.4-12.4) fL Immature Gran % (Auto) 1.0 H (0.0-0.4) % Neut % (Auto) 61.6 (45-73) % Lymph % (Auto) 24.8 (20-40) % [place] % (Auto) 8.0 (2-11) % Eos % (Auto) 4.3 H (0-4) % Baso % (Auto) 0.3 (0-2) % Lymph # (Auto) 1.5 (1.2-4.9) X10*3/uL [place] # (Auto) 0.5 (0.1-1.2) X10*3/uL Eos # (Auto) 0.3 (0.0-0.4) X10*3/uL Baso # (Auto) 0.0 (0.0-0.2) X10*3/uL Abs Immat Gran (auto) 0.06 H (0.00-0.03) X10*3/uL Absolute Neuts (auto) 3.8 (2.0-8.3) X10*3/uL Absolute Nucleated RBC 0.000 (0.0-0.012) X10*3/uL Nucleated RBC % (auto) 0.0 (0.0-0.2) /100WBC Sodium 140 (135-145) mmol/L Potassium 4.2 (3.3-5.1) mmol/l Chloride 104 (96-108) mmol/L Carbon Dioxide 27 (22-29) mmol/L Anion Gap 13 (12-20) BUN 11 (9-16) mg/dL Creatinine 0.82 (0.5-1.4) mg/dL Estim Creat Clear Calc 138.6 Estimated GFR > 60 Random Glucose 86 (60-115) mg/dL Calcium 8.5 (8.4-10.2) mg/dL Discharge Plan Discharge Clinical Impression: Migraine Patient Disposition: Home, Self-Care Instructions: Migraine Headache (ED) Additional Instructions: Your blood work is unremarkable today in the ED. Reglan is an antinausea medication, take as needed You need to follow-up with her neurologist Continue to take previously prescribed headache medications Rest Stay hydrated at home Sleep If symptoms persist or worsen, headache becomes unbearable, he developed persistent nausea/vomiting, or weakness return to the ED Prescriptions: New metoclopramide HCl [Reglan] 10 mg tablet 10 mg PO Q6H PRN (Reason: nausea and vomiting) Qty: 5 RF: 0 No Action tramadol 50 mg tablet 50 mg PO Q8H PRN (Reason: pain) Qty: 7 RF: 0 cyclobenzaprine 10 mg tablet 10 mg PO TID PRN (Reason: muscle spasm) Qty: 14 RF: 0 prednisone 20 mg tablet 40 mg PO DAILY 5 Days Qty: 10 RF: 0 ibuprofen 400 mg tablet 400 mg PO Q6H PRN (Reason: pain) Qty: 20 RF: 0 ondansetron 4 mg tablet,disintegrating 4 mg PO TID PRN (Reason: nausea and vomiting) 5 Days Qty: 10 RF: 0 Referrals: Storm Melendez MD [Physician] - 2 days
--- NOTE | 2020-06-26 17:43 | ECG_ITS ---
Test Reason : HX A-FIB Blood Pressure : / mmHG Vent. Rate : 092 BPM Atrial Rate : 092 BPM P-R Int : 136 ms QRS Dur : 114 ms QT Int : 396 ms P-R-T Axes : 062 086 045 degrees QTc Int : 489 ms Normal sinus rhythm Prolonged QT Abnormal ECG When compared with ECG of 27-APR-2020 00:10, No significant change was found Referred By: Bessie Colby Electronically Signed By:Estevan Ann
[2020-06-26] MEDS: Metoclopramide HCl 10 MG/2 ML VIAL IVPUSH (17:52)
[2020-06-26] MEDS: diphenhydrAMINE HCL 50 MG/ML VIAL 25 MG IVPUSH (17:52)
[2020-06-26] MEDS: Ketorolac Tromethamine 15 MG/ML VIAL IVPUSH ×2 (17:52→19:36)
[2020-06-26] MEDS: 0.9 % Sodium Chloride 1,000 ML 999 ML IVCONT (17:53)
[2020-06-26 17:59] LABS: MANUAL DIFF FLAG NO
[2020-06-26 18:17] LABS: Basophils Percent Auto 0.3 % (0-2); Eosinophils Absolute Auto 0.3 X10*3/uL (0.0-0.4); Eosinophils Percent Auto 4.3 % (0-4); Hematocrit 43.1 % (42-52); Hemoglobin 14.2 g/dl (14.0-18.0); Imm Gran Abs Auto 0.06 X10*3/uL (0.00-0.03); Lymphocytes Absolute Auto 1.5 X10*3/uL (1.2-4.9); Lymphocytes Percent Auto 24.8 % (20-40); Mean Corpuscular HGB Conc 32.9 g/dl (31.0-36.0); Mean Platelet Volume 8.7 fL (9.4-12.4); Monocytes Absolute Auto 0.5 X10*3/uL (0.1-1.2); Neutrophils Absolute Auto 3.8 X10*3/uL (2.0-8.3); Neutrophils Percent Auto 61.6 % (45-73); Platelet Count 221 X10*3/uL (160-400); Red Blood Count 5.07 X10*6/uL (4.60-5.80); Red Cell Distribution Width 13.7 % (11.0-16.0); White Blood Count 6.2 X10*3/uL (4.8-10.8)
[2020-06-26 18:23] LABS: Anion Gap 13 (12-20); Blood Urea Nitrogen 11 mg/dL (9-16); Calcium 8.5 mg/dL (8.4-10.2); Carbon Dioxide 27 mmol/L (22-29); Chloride 104 mmol/L (96-108); Creatinine Clr Calc Pharmacy 138.6; Estimated Glomerular Filt Rate > 60; Glucose Random 86 mg/dL (60-115); Potassium 4.2 mmol/l (3.3-5.1); Sodium 140 mmol/L (135-145)
--- NOTE | 2020-06-26 19:08 | PC.NURSE ---
Report taken from Rashida, this RN resuming care. Pt found resting in bed with eyes closed, reports 8/10 pain to head, pt explains he suffers from chronic migraines and reports minimal relief after medication administration. Pt requesting medications for pain. This RN to discuss pain control with MD. Continue to monitor.
[2020-06-26] MEDS: Butalb/Acetamin/Caff 50/325/40 TABLET 2 TAB PO (19:37)
--- NOTE | 2020-06-26 19:38 | PC.NURSE ---
Pt medicated per EMAR.
[2020-06-26] MEDS: methylPREDNISolone Sod Succ/PF 125 MG/2 ML VIAL IVPUSH (20:26)
[2020-06-26 20:27] VITALS: BP 127/78; PULSE 83; RESP 16
--- NOTE | 2020-06-26 20:36 | PC.NURSE ---
Pt reports no relief of pain after Fioricet and Toradol, medicated with Solumedrol per MAR. Continue to monitor, VSS.
== END 2020-06-26 20:57 | disposition home or self-care (01) ==
PROVIDERS: Physician Assistant; Emergency Provider Internal Medicine
DX: G43.909 Migraine, unspecified, not intractable, without status migrainosus (principal); I48.91 Unspecified atrial fibrillation
CPT/HCPCS: 36415; 80048; 85025; 93005; 96361; 96374; 96375; 96376; 99284; J1200; J1885; J2765; J2930

== ENCOUNTER 2020-07-12 18:35 | Emergency (ER) | payer MEDICARE, MEDICAID, SELFPAY ==
[2020-07-12 20:16] VITALS: BP 153/100; PULSE 81; RESP 18; TEMP 36.8; O2SAT 98; BMI 28.7
--- NOTE | 2020-07-12 20:37 | ED_ITS ---
HPI - Headache General Chief Complaint: Headache Stated Complaint: Migraine/Abd pain Time Seen by Provider: 07/12/20 20:34 Source: patient Mode of arrival: ambulatory Limitations: no limitations History of Present Illness MD elicited complaint: headache and migraine Pertinent past history: migraines Onset (ago): day(s) (5) Onset description: gradually Location: right and temporal Severity: similar to previous episodes Quality & Timing: throbbing and constant Exacerbating factors: movement of head/neck, light and noise Relieving factors: nothing Context: occurred at rest Associated symptoms: nausea, vomiting, photophobia, sensitivity to sound and other (also c/o R flank pain at this time unsure if it is related to his migraine) Treatments prior to arrival: ibuprofen Related Data Previous Rx's Medication Instructions Recorded tramadol 50 mg PO Q8H PRN #7 tab 04/22/20 cyclobenzaprine 10 mg PO TID PRN #14 tab 04/24/20 prednisone 40 mg PO DAILY 5 Days #10 tab 04/24/20 ibuprofen 400 mg PO Q6H PRN #20 tab 06/09/20 ondansetron 4 mg PO TID PRN 5 Days #10 tab 06/09/20 metoclopramide HCl [Reglan] 10 mg PO Q6H PRN #5 tab 06/26/20 ondansetron 4 mg PO Q8H PRN #20 tab 07/12/20 Allergies Allergy/AdvReac Type Severity Reaction Status Date / Time diphenhydramine Allergy Unknown AGITATION Verified 06/26/20 16:54 [From BENADRYL] metoclopramide [From REGLAN] Allergy Unknown AGITATION Verified 06/26/20 16:54 prochlorperazine Allergy Unknown AGITATION Verified 06/26/20 16:54 [From COMPAZINE] Review of Systems Review of Systems: Constitutional : No Fever, No Chills, No Fatigue ENT/Mouth : No sore throat, No Rhinorrhea Eyes: pos Eye Pain, No Swelling, No Redness Cardiovascular : No Chest Pain, No SOB, No Dyspnea on Exertion Respiratory : No Cough, No Sputum Gastrointestinal : pos Nausea, pos Vomiting, No Diarrhea, pos abdominal Pain Genitourinary : No Dysuria, No Urinary Frequency, No Hematuria, Musculoskeletal : No joint pain, No Myalgias, No Joint Swelling Skin : No Skin Lesions, No rash Neuro : No Weakness, No Numbness, No Dizziness, positive Headache Psych : No Anxiety/Panic, No Depression Heme/Lymph: No Bruising, No Bleeding,No Lymphadenopathy Endocrine : No Polyuria, No Polydipsia All other systems reviewed and are negative [facility] Past Medical History Attestation statement: The following information was validated with the patient. Medical History Afib Anxiety Depression GERD (gastroesophageal reflux disease) Migraine Pneumonia Surgical History Hx of appendectomy Hx of cholecystectomy Social History Social History Alcohol intake: former Smoking Status: Never smoker Substance Use Type: Marijuana Advance Directives: Yes Advance Directives on File: Yes Advance Directives Date on File: 05/01/20 Physical Exam Vital Signs: Vital Signs: Last Vital Signs Temp 98.2 F 07/12/20 20:16 Pulse 84 07/12/20 22:00 Resp 16 07/12/20 22:00 BP 134/68 07/12/20 22:00 Pulse Ox 99 07/12/20 22:00 Body Mass Index 28.7 Appearance: Alert. Oriented X3. No acute distress. Eyes: Pupils equal, round and reactive to light. Photophobic ENT: Pharynx normal. Neck: Normal inspection. Neck supple. CVS: Normal heart rate and rhythm. Pulses normal. Respiratory: No respiratory distress. Breath sounds normal. Abdomen: Soft and mild R flank tenderness no rebound or guarding. Skin: Skin warm and dry. Normal skin color. Normal skin turgor. Extremities: No lower extremity edema. No calf ttp Neuro: Oriented X 3. No motor deficit. No sensory deficit. Course Course Course Narrative: flank pain resolved, no hematuria doubt stone patient feels better, stable for DC MDM - Headache MDM Narrative Medical decision making narrative: 34 yo male with hx of headaches no AC therapy will need labs - no change from baseline migraines, IV medications - doubt YARD HOSTLER infection or SAH given the chronicity and nature of his headache - patient also c/o R flank pain with hx of stones - s/p appendectomy and cholecystectomy - UA and labs ordered Lab Data Result diagrams: 07/12/20 20:54 07/12/20 20:54 Labs: Lab Results 07/12/20 07/12/20 07/12/20 Range/Units 20:54 20:54 20:54 WBC 7.7 (4.8-10.8) X10*3/uL RBC 4.86 (4.60-5.80) X10*6/uL Hgb 13.7 L (14.0-18.0) g/dl Hct 41.0 L (42-52) % MCV 84.4 (80-98) fL MCH 28.2 (27.0-33.0) pg MCHC 33.4 (31.0-36.0) g/dl RDW 12.9 (11.0-16.0) % Plt Count 301 D (160-400) X10*3/uL MPV 8.5 L (9.4-12.4) fL Immature Gran % (Auto) 0.3 (0.0-0.4) % Neut % (Auto) 58.4 (45-73) % Lymph % (Auto) 31.2 (20-40) % [place] % (Auto) 7.4 (2-11) % Eos % (Auto) 2.2 (0-4) % Baso % (Auto) 0.5 (0-2) % Lymph # (Auto) 2.4 (1.2-4.9) X10*3/uL [place] # (Auto) 0.6 (0.1-1.2) X10*3/uL Eos # (Auto) 0.2 (0.0-0.4) X10*3/uL Baso # (Auto) 0.0 (0.0-0.2) X10*3/uL Abs Immat Gran (auto) 0.02 (0.00-0.03) X10*3/uL Absolute Neuts (auto) 4.5 (2.0-8.3) X10*3/uL Absolute Nucleated RBC 0.000 (0.0-0.012) X10*3/uL Nucleated RBC % (auto) 0.0 (0.0-0.2) /100WBC Hold Blue Top SEE NOTE Sodium 141 (135-145) mmol/L Potassium 3.9 (3.3-5.1) mmol/l Chloride 104 (96-108) mmol/L Carbon Dioxide 29 (22-29) mmol/L Anion Gap 12 (12-20) BUN 8 L (9-16) mg/dL Creatinine 0.89 (0.5-1.4) mg/dL Estim Creat Clear Calc 129.9 Estimated GFR > 60 Random Glucose 86 (60-115) mg/dL Calcium 9.0 (8.4-10.2) mg/dL Urine Color Urine Appearance Urine pH (5.0-8.0) Ur Specific [place] (1.005-1.025) Urine Protein (NEG-TRACE) MG/DL Urine Glucose (UA) (NEG) MG/DL Urine Ketones (NEG) MG/DL Urine Blood (NEG) Urine Nitrite (NEG) Ur Leukocyte Esterase (NEG) Urine RBC (0) /HPF Urine WBC (0-4) /HPF Ur Squamous Epith Cells /LPF Urine Bacteria /LPF 07/12/ Range/Units 21:13 WBC (4.8-10.8) X10*3/uL RBC (4.60-5.80) X10*6/uL Hgb (14.0-18.0) g/dl Hct (42-52) % MCV (80-98) fL MCH (27.0-33.0) pg MCHC (31.0-36.0) g/dl RDW (11.0-16.0) % Plt Count (160-400) X10*3/uL MPV (9.4-12.4) fL Immature Gran % (Auto) (0.0-0.4) % Neut % (Auto) (45-73) % Lymph % (Auto) (20-40) % [place] % (Auto) (2-11) % Eos % (Auto) (0-4) % Baso % (Auto) (0-2) % Lymph # (Auto) (1.2-4.9) X10*3/uL [place] # (Auto) (0.1-1.2) X10*3/uL Eos # (Auto) (0.0-0.4) X10*3/uL Baso # (Auto) (0.0-0.2) X10*3/uL Abs Immat Gran (auto) (0.00-0.03) X10*3/uL Absolute Neuts (auto) (2.0-8.3) X10*3/uL Absolute Nucleated RBC (0.0-0.012) X10*3/uL Nucleated RBC % (auto) (0.0-0.2) /100WBC Hold Blue Top Sodium (135-145) mmol/L Potassium (3.3-5.1) mmol/l Chloride (96-108) mmol/L Carbon Dioxide (22-29) mmol/L Anion Gap (12-20) BUN (9-16) mg/dL Creatinine (0.5-1.4) mg/dL Estim Creat Clear Calc Estimated GFR Random Glucose (60-115) mg/dL Calcium (8.4-10.2) mg/dL Urine Color YELLOW Urine Appearance CLEAR Urine pH 7.0 (5.0-8.0) Ur Specific [place] 1.020 (1.005-1.025) Urine Protein NEG (NEG-TRACE) MG/DL Urine Glucose (UA) NEG (NEG) MG/DL Urine Ketones NEG (NEG) MG/DL Urine Blood TRACE (NEG) Urine Nitrite NEG (NEG) Ur Leukocyte Esterase NEG (NEG) Urine RBC 0-2 (0) /HPF Urine WBC 0 (0-4) /HPF Ur Squamous Epith Cells NONE /LPF Urine Bacteria TRACE /LPF Discharge Plan Discharge Clinical Impression: Acute right flank pain Migraine Qualifiers: Migraine type: without aura Status migrainosus presence: without status m igrainosus Intractability: not intractable Qualified Code(s): G43.009 - Migraine without aura, not intractable, without status migrainosus Patient Disposition: Home, Self-Care Instructions: Migraine Headache (ED) Additional Instructions: return to ED for any worsening symptoms or concerns your urine was normal and showed no evidence of blood Prescriptions: New ondansetron 4 mg tablet,disintegrating 4 mg PO Q8H PRN (Reason: nausea and vomiting) Qty: 20 RF: 0 No Action tramadol 50 mg tablet 50 mg PO Q8H PRN (Reason: pain) Qty: 7 RF: 0 cyclobenzaprine 10 mg tablet 10 mg PO TID PRN (Reason: muscle spasm) Qty: 14 RF: 0 prednisone 20 mg tablet 40 mg PO DAILY 5 Days Qty: 10 RF: 0 ibuprofen 400 mg tablet 400 mg PO Q6H PRN (Reason: pain) Qty: 20 RF: 0 ondansetron 4 mg tablet,disintegrating 4 mg PO TID PRN (Reason: nausea and vomiting) 5 Days Qty: 10 RF: 0 metoclopramide HCl [Reglan] 10 mg tablet 10 mg PO Q6H PRN (Reason: nausea and vomiting) Qty: 5 RF: 0 Referrals: Coco Antoine, CREATIVE COORDINATOR [Primary Care Provider] - 2 days (if not better) Stand Alone Forms: Work/School Release
[2020-07-12 20:59] LABS: MANUAL DIFF FLAG NO
[2020-07-12 21:01] VITALS: BP 141/71; PULSE 84; RESP 16; O2SAT 99
[2020-07-12] MEDS: 0.9 % Sodium Chloride 1,000 ML 999 ML IVCONT (21:09)
[2020-07-12] MEDS: dexAMETHasone sod phosphate 4 MG/ML VIAL 6 MG IVPUSH (21:09)
[2020-07-12] MEDS: Magnesium Sulfate/H2O 2 GM/50 ML PIGGYBACK IV (21:09)
[2020-07-12] MEDS: LORazepam 2 MG/ML VIAL 1 MG IVPUSH (21:09)
[2020-07-12] MEDS: Ketorolac Tromethamine 30 MG/ML VIAL IVPUSH (21:10)
[2020-07-12 21:19] LABS: Basophils Percent Auto 0.5 % (0-2); Eosinophils Absolute Auto 0.2 X10*3/uL (0.0-0.4); Eosinophils Percent Auto 2.2 % (0-4); Hemoglobin 13.7 g/dl (14.0-18.0); Imm Gran Abs Auto 0.02 X10*3/uL (0.00-0.03); Imm Gran Pct Auto 0.3 % (0.0-0.4); Lymphocytes Absolute Auto 2.4 X10*3/uL (1.2-4.9); Lymphocytes Percent Auto 31.2 % (20-40); Mean Corpuscular HGB Conc 33.4 g/dl (31.0-36.0); Mean Corpuscular Hemoglobin 28.2 pg (27.0-33.0); Mean Corpuscular Volume 84.4 fL (80-98); Mean Platelet Volume 8.5 fL (9.4-12.4); Monocytes Absolute Auto 0.6 X10*3/uL (0.1-1.2); Monocytes Percent Auto 7.4 % (2-11); Neutrophils Absolute Auto 4.5 X10*3/uL (2.0-8.3); Neutrophils Percent Auto 58.4 % (45-73); Platelet Count 301 X10*3/uL (160-400); Red Blood Count 4.86 X10*6/uL (4.60-5.80); Red Cell Distribution Width 12.9 % (11.0-16.0); White Blood Count 7.7 X10*3/uL (4.8-10.8)
[2020-07-12 21:23] LABS: Appearance Urine CLEAR; Color Urine YELLOW; Glucose Urine UA NEG (NEG); Leukocyte Esterase Urine NEG (NEG); Nitrite Urine NEG (NEG); Urine Blood TRACE (NEG); Urine Ketones NEG (NEG); Urine Protein NEG (NEG-TRACE)
[2020-07-12 21:35] LABS: Bacteria Urine TRACE /LPF; RBC Urine 0-2 /HPF (0); WBC Urine 0 /HPF (0-4)
[2020-07-12 21:53] LABS: Anion Gap 12 (12-20); Blood Urea Nitrogen 8 mg/dL (9-16); Carbon Dioxide 29 mmol/L (22-29); Chloride 104 mmol/L (96-108); Creatinine Clr Calc Pharmacy 129.9; Estimated Glomerular Filt Rate > 60; Glucose Random 86 mg/dL (60-115); Potassium 3.9 mmol/l (3.3-5.1); Sodium 141 mmol/L (135-145)
[2020-07-12 22:00] VITALS: BP 134/68; PULSE 84; RESP 16; O2SAT 99
[2020-07-12] MEDS: Butalb/Acetamin/Caff 50/325/40 TABLET 2 TAB PO (23:01)
== END 2020-07-13 00:04 | disposition home or self-care (01) ==
PROVIDERS: Emergency Provider Emergency Medicine; PCP Nurse Practitioner Family
DX: G43.009 Migraine without aura, not intractable, without status migrainosus (principal); R10.9 Unspecified abdominal pain; I48.91 Unspecified atrial fibrillation
CPT/HCPCS: 36415; 80048; 81001; 85025; 96365; 96375; 99284; J1100; J1885; J2060; J3475

== ENCOUNTER 2020-08-04 15:24 | Emergency (ER) | payer MEDICARE, MEDICAID, SELFPAY ==
[2020-08-04 18:40] VITALS: BP 114/87; RESP 20; TEMP 36.3; O2SAT 97
[2020-08-04 20:18] VITALS: BP 145/88; PULSE 84; RESP 16; TEMP 37.2; O2SAT 99; BMI 29.5
--- NOTE | 2020-08-04 20:18 | CT_ITS ---
EXAMINATION: CT HEAD WITHOUT CONTRAST CLINICAL INFORMATION: Headache COMPARISON: 08/12/2016 TECHNIQUE: Contiguous axial imaging was performed from the skull base to vertex without intravenous administration of contrast. This CT examination was performed using dose optimization techniques as appropriate, variously including the following: *Automated exposure control *Adjustment of mA and/or kV according to patient size (this includes techniques or standardized protocols for targeted exams where dose is matched to indication/reason for exam; i.e. extremities or head) *Use of iterative reconstruction technique DLP: 937 mGy-cm FINDINGS: There is no evidence of acute intracranial hemorrhage or territorial infarction. No abnormal mass effect or midline shift is seen. [place] to white matter differentiation is well preserved. No extra-axial fluid collections are identified. The ventricles are normal in size. Once again a hypodense area seen in the posterior left parietal region. Etiology is indeterminate. The osseous structures and soft tissues are normal. The mastoid air cells and visualized portions of the paranasal sinuses are well aerated. CT/CT head/brain wo con IMPRESSION: No acute intracranial pathology. Once again hypodense region seen in the posterior left parietal region. Not felt to be significantly changed from previous. Etiology is indeterminate. Consider MRI evaluation for more definitive characterization and size assessment Once again abnormal pituitary region. Etiology indeterminate. Recommend dedicated pre and postcontrast MRI.
--- NOTE | 2020-08-04 20:19 | ED_ITS ---
HPI - Headache General Chief Complaint: Headache Stated Complaint: Migraine Time Seen by Provider: 08/04/20 20:11 Source: patient Mode of arrival: ambulatory Limitations: no limitations History of Present Illness HPI Narrative: 34-year-old male with a past medical history of AFib, anxiety, depression, GERD, migraines here with complaints of generalized headache x2 days with nausea, photophobia and phonophobia. Feels similar to previous migraines but is more severe. Unrelieved with home Imitrex and ibuprofen. MD elicited complaint: headache and migraine Onset (ago): day(s) Onset description: gradually Location: generalized Severity: mild Quality & Timing: throbbing Exacerbating factors: none Relieving factors: nothing Associated symptoms: nausea, photophobia and sensitivity to sound Treatments prior to arrival: ibuprofen and migraine medication Related Data Previous Rx's Medication Instructions Recorded tramadol 50 mg PO Q8H PRN #7 tab 04/22/20 cyclobenzaprine 10 mg PO TID PRN #14 tab 04/24/20 prednisone 40 mg PO DAILY 5 Days #10 tab 04/24/20 ibuprofen 400 mg PO Q6H PRN #20 tab 06/09/20 ondansetron 4 mg PO TID PRN 5 Days #10 tab 06/09/20 metoclopramide HCl [Reglan] 10 mg PO Q6H PRN #5 tab 06/26/20 ondansetron 4 mg PO Q8H PRN #20 tab 07/12/20 Allergies Allergy/AdvReac Type Severity Reaction Status Date / Time diphenhydramine Allergy Unknown AGITATION Verified 06/26/20 16:54 [From BENADRYL] metoclopramide [From REGLAN] Allergy Unknown AGITATION Verified 06/26/20 16:54 prochlorperazine Allergy Unknown AGITATION Verified 06/26/20 16:54 [From COMPAZINE] Review of Systems Review of Systems: Yes all other systems are reviewed and are negative Constitutional: Constitutional: Reports no additional constitutional complaints, Denies body ache(s), Denies chills, Denies fever(s), Reports headache(s) and Denies weakness Eyes: Eyes: Reports no additional eye complaints, Denies change in vision and Reports photophobia ENT: Reports system reviewed and no additional complaints, except as documented, Denies dizziness, Reports headache(s), Denies nasal congestion, De nies nasal discharge and Denies neck pain Cardiovascular: Cardiovascular: Reports no additional cardiovascular complaints, Denies chest pain, Denies leg edema and Denies dyspnea Respiratory: Respiratory: Reports no additional respiratory complaints, Denies cough and Denies dyspnea Gastrointestinal: Gastrointestinal: Reports no additional gastrointestinal complaints, Denies abdominal pain, Denies diarrhea, Reports nausea and Denies vomiting Genitourinary: Genitourinary: Denies urinary incontinence Musculoskeletal: Musculoskeletal: Reports no additional musculoskeletal complaints, Denies back pain, Denies arthralgias, Denies joint swelling, Denies neck pain, Denies numbness and Denies tingling Integumentary/Breasts: Skin/Breast: Reports system reviewed and no additional complaints, except as docu and Denies rash Neurologic: Reports system reviewed and no additional complaints, except as documented, Denies Abnormal speech present, Denies dizziness, Reports headache(s), Denies numbness, Denies tingling and Denies weakness PMFSH Past Medical History Attestation statement: The following information was validated with the patient. Source: old records reviewed and nursing notes reviewed Medical History Afib Anxiety Depression GERD (gastroesophageal reflux disease) Migraine Pneumonia Surgical History Hx of appendectomy Hx of cholecystectomy Social History Social History Alcohol intake: former Smoking Status: Never smoker Substance Use Type: Marijuana Advance Directives: No Advance Directives Date on File: 05/01/20 Physical Exam Vital Signs: Vital Signs: Last Vital Signs Temp 98.9 F 08/04/20 20:18 Pulse 84 08/04/20 20:18 Resp 16 08/04/20 20:18 BP 145/88 H 08/04/20 20:18 Pulse Ox 99 08/04/20 20:18 Body Mass Index 29.5 Const: General: cooperative, healthy appearing, comfortable and no acute distress Orientation/consciousness: patient oriented x3 Limitations: no limitations HENMT: Head: Yes normal to inspection Ears: hearing grossly normal bilaterally General nose exam: Normal external nose present Face and sinus: Yes normal facial exam Mouth: Normal oral and palatal mucosa present Throat: Yes posterior oropharynx normal Eyes: General: appearance normal, both eyes and all related structures Pupils: Equal, round and reactive pupils present Direct Ophthalmoscopy: photophobia Neck: Neck: Yes normal visual inspection Chest: Chest palpation & inspection: normal inspection of the chest Resp: Effort & Inspection: normal respiratory effort Auscultation: clear to auscultation bilaterally Cardio: Rate: regular rate Rhythm: regular rhythm Peripheral pulses: Peripheral pulses 2+ throughout GI: Inspection: Yes normal to inspection Palpation (GI): Soft to palpation and nontender Auscultation: normal bowel sounds Back/Spine/Pelvis: Thoracic/Lumbar Spine: thoracic and lumbar spine normal to inspection Skin: General skin exam: no rashes or lesions noted Neuro: General: patient oriented x3, no focal motor deficits and normal sensation to monofilament Cranial nerves: Yes CN's II-XII intact bilaterally, Yes Equal, round and reactive pupils present, Yes Bilaterally intact EOM present, Yes Nystagmus not present, Yes Normal facial strength present and Yes Midline tongue present Cognition (Neuro): normal cognition Speech: No Abnormal speech present Gait exam (Neuro): Normal gait present Motor exam (neuro): 5/5 motor strength present throughout Sensory Exam: Normal double simultaneous stimulation for sensation Extrem: General: Yes normal to inspection Course Course Course Narrative: 34-year-old male with past medical history of migraines here with generalized headache, photophobia, phonophobia and nausea times 48 hours unrelieved with home Imitrex and ibuprofen. On arrival normal neurological exam. Patient tells me this pain feels more severe than his normal migraines. Will check imaging. Allergy listed to jeanine walker. Will place PIV with NSB, zofran, toradol and decadron. 2100-Sign out to Kavitha HOLGUIN pending above. MDM - Headache MDM Narrative Medical decision making narrative: SAH vs ICH vs lesion, status migraine Medical Records Attestation: I reviewed the patient's medical records. Lab Data Attestation: I reviewed the patient's lab results. Discharge Plan Discharge Prescriptions: No Action tramadol 50 mg tablet 50 mg PO Q8H PRN (Reason: pain) Qty: 7 RF: 0 cyclobenzaprine 10 mg tablet 10 mg PO TID PRN (Reason: muscle spasm) Qty: 14 RF: 0 prednisone 20 mg tablet 40 mg PO DAILY 5 Days Qty: 10 RF: 0 ondansetron 4 mg tablet,disintegrating 4 mg PO Q8H PRN (Reason: nausea and vomiting) Qty: 20 RF: 0 ibuprofen 400 mg tablet 400 mg PO Q6H PRN (Reason: pain) Qty: 20 RF: 0 ondansetron 4 mg tablet,disintegrating 4 mg PO TID PRN (Reason: nausea and vomiting) 5 Days Qty: 10 RF: 0 metoclopramide HCl [Reglan] 10 mg tablet 10 mg PO Q6H PRN (Reason: nausea and vomiting) Qty: 5 RF: 0
[2020-08-04] MEDS: 0.9 % Sodium Chloride 1,000 ML 999 ML IV (21:16)
[2020-08-04] MEDS: ondansetron HCL 4 MG/2 ML VIAL IVPUSH (21:19)
[2020-08-04] MEDS: Ketorolac Tromethamine 30 MG/ML VIAL IVPUSH (21:19)
[2020-08-04 21:42] VITALS: BP 139/72; PULSE 86; RESP 16; TEMP 37.6; O2SAT 99
[2020-08-04 22:21] VITALS: RESP 16
[2020-08-04] MEDS: Morphine Sulfate 4 MG/ML CARTRIDGE IVPUSH (22:21)
[2020-08-04 22:27] VITALS: BP 139/92; PULSE 85; RESP 16; O2SAT 98
[2020-08-04 22:49] VITALS: BP 132/95; PULSE 81; RESP 16; O2SAT 99
== END 2020-08-04 23:44 | disposition home or self-care (01) ==
PROVIDERS: Emergency Provider Emergency Medicine; PCP Nurse Practitioner Family
DX: G43.909 Migraine, unspecified, not intractable, without status migrainosus (principal); R93.0 Abnormal findings on diagnostic imaging of skull and head, not elsewhere classified; I48.91 Unspecified atrial fibrillation; Z79.899 Other long term (current) drug therapy
CPT/HCPCS: 70450; 96361; 96374; 96375; 99284; J1100; J1885; J2270; J2405

== ENCOUNTER → 2020-08-11 13:56 | Outpatient (BNVA) | payer MEDICARE, MEDICAID, SELFPAY | PROVIDERS: PCP Nurse Practitioner Family; Visit Provider Physician Assistant | DX: M25.511 Pain in right shoulder (principal) | CPT/HCPCS: 99212 ==

== ENCOUNTER 2020-08-13 11:37 | Emergency (ER) | payer MEDICARE, MEDICAID, SELFPAY ==
[2020-08-13 11:45] VITALS: BP 139/91; PULSE 96; RESP 18; TEMP 36.7; O2SAT 97; BMI 29.5
--- NOTE | 2020-08-13 11:57 | XR_ITS ---
EXAMINATION: XR CHEST CLINICAL INFORMATION: fevers, chest tightness, sob ? covid COMPARISON: 04/22/2020 TECHNIQUE: AP portable upright view of the chest FINDINGS: Lungs are clear. No consolidation, pneumothorax, or pleural effusion. Cardiac and mediastinal contours are normal. Pulmonary vasculature is unremarkable. Osseous structures are unremarkable. XR/XR chest 1V IMPRESSION: No acute cardiopulmonary findings
[2020-08-13 12:30] LABS: MANUAL DIFF FLAG NO
[2020-08-13 12:33] LABS: Basophils Percent Auto 0.5 % (0-2); Eosinophils Absolute Auto 0.3 X10*3/uL (0.0-0.4); Hematocrit 41.9 % (42-52); Imm Gran Abs Auto 0.03 X10*3/uL (0.00-0.03); Imm Gran Pct Auto 0.5 % (0.0-0.4); Lymphocytes Absolute Auto 2.2 X10*3/uL (1.2-4.9); Lymphocytes Percent Auto 39.3 % (20-40); Mean Corpuscular HGB Conc 33.4 g/dl (31.0-36.0); Mean Corpuscular Hemoglobin 28.3 pg (27.0-33.0); Mean Corpuscular Volume 84.6 fL (80-98); Mean Platelet Volume 8.4 fL (9.4-12.4); Monocytes Absolute Auto 0.6 X10*3/uL (0.1-1.2); Monocytes Percent Auto 10.6 % (2-11); Neutrophils Absolute Auto 2.4 X10*3/uL (2.0-8.3); Neutrophils Percent Auto 44.1 % (45-73); Platelet Count 267 X10*3/uL (160-400); Red Blood Count 4.95 X10*6/uL (4.60-5.80); Red Cell Distribution Width 12.9 % (11.0-16.0); White Blood Count 5.6 X10*3/uL (4.8-10.8)
[2020-08-13 12:47] LABS: INTERNATIONAL NORM RATIO 0.9 (0.9-1.1); Prothrombin Time 10.8 SEC (10.8-13.0)
[2020-08-13 12:51] LABS: D Dimer < 200 NG/ML
[2020-08-13 12:58] LABS: Alanine Aminotransferase 24 U/L (0-40); Albumin Level 4.3 g/dL (3.5-5.0); Alkaline Phosphatase 138 U/L (39-117); Anion Gap 14 (12-20); Aspartate Amino Transferase 18 U/L (5-37); Bilirubin Direct < 0.2 mg/dL (0.0-0.5); Bilirubin Total 0.3 mg/dL (0.0-1.0); Blood Urea Nitrogen 9 mg/dL (9-16); C Reactive Protein 0.34 mg/dL (< or = 0.50); Calcium 8.9 mg/dL (8.4-10.2); Carbon Dioxide 24 mmol/L (22-29); Chloride 107 mmol/L (96-108); Creatinine Clr Calc Pharmacy 147.6; Estimated Glomerular Filt Rate > 60; Glucose Random 93 mg/dL (60-115); Lactate Dehydrogenase 166 U/L (118-273); Magnesium 2.3 mg/dL (1.6-2.6); Potassium 3.8 mmol/L (3.3-5.1); Sodium 141 mmol/L (135-145); Total Protein 6.9 g/dL (6.5-8.0)
--- NOTE | 2020-08-13 13:01 | ED_ITS ---
HPI - General Adult General Chief complaint: General Medical Stated complaint: FEVER Time Seen by Provider: 08/13/20 11:57 Source: patient Mode of arrival: ambulatory Limitations: no limitations History of Present Illness HPI narrative: 34yoM c PMHx of situational AFib usually with vomiting, GERD, migraine headaches, depression and anxiety disorder presenting to the ED c c/o low-grade fevers from 99 through 101 orally, dry cough, chest tightness, shortness of breath, dyspnea on exertion, generalized fatigue which has been present constant for the past 3 days worse today. Denies any dizziness, headaches, ear pain, nasal congestion, sore throat, loss of taste or smell, chest pain, orthopnea, palpitations, paresthesias, focal weakness, extremity edema or any symptoms or any other symptoms complaints or concerns at this time. Related Data Previous Rx's Medication Instructions Recorded tramadol 50 mg PO Q8H PRN #7 tab 04/22/20 cyclobenzaprine 10 mg PO TID PRN #14 tab 04/24/20 prednisone 40 mg PO DAILY 5 Days #10 tab 04/24/20 ibuprofen 400 mg PO Q6H PRN #20 tab 06/09/20 ondansetron 4 mg PO TID PRN 5 Days #10 tab 06/09/20 metoclopramide HCl [Reglan] 10 mg PO Q6H PRN #5 tab 06/26/20 ondansetron 4 mg PO Q8H PRN #20 tab 07/12/20 opnlyozodl-bjdkogosqlwji-czbv 1 cap PO Q4-6H PRN #20 cap 08/04/20 [Fioricet] acetaminophen [Tylenol Extra 1,000 mg PO QID PRN #14 tab 08/13/20 Strength] albuterol sulfate 1 inh INHALATION QID PRN #8.5 g 08/13/20 azithromycin See Rx Instructions .ROUTE 08/13/20 .COMPLEX #6 tab cyclobenzaprine 10 mg PO TID PRN #10 tab 08/13/20 ibuprofen 800 mg PO Q8H PRN #14 tab 08/13/20 prednisone 40 mg PO DAILY 5 Days #10 tab 08/13/20 Allergies Allergy/AdvReac Type Severity Reaction Status Date / Time diphenhydramine Allergy Unknown AGITATION Verified 06/26/20 16:54 [From BENADRYL] metoclopramide [From REGLAN] Allergy Unknown AGITATION Verified 06/26/20 16:54 prochlorperazine Allergy Unknown AGITATION Verified 06/26/20 16:54 [From COMPAZINE] Review of Systems Review of Systems: Constitutional : + Fever, + Chills, + Fatigue, + Malaise, No Night Sweats, ENT/Mouth : No Hearing loss, No Ear Pain, No Nasal Congestion, No Sinus Pain, No Hoarseness, No sore throat, No Rhinorrhea, No Swallowing Difficulty Eyes: No Eye Pain, No Swelling, No Redness, No Foreign Body, No Discharge, No Vision Changes Cardiovascular : + Chest tightness, + SOB, + Dyspnea on Exertion, No Orthopnea, No Edema, No extremity swelling, No Palpitations Respiratory : + Cough, + Dyspnea, No Sputum, No Wheezing, No Dyspnea Gastrointestinal : No Nausea, No Vomiting, No Diarrhea, No abdominal Pain, No Hematochezia, No Melena Genitourinary : No irregular bleeding, No Dysuria, No Urinary Frequency, No Hematuria, No Urinary Incontinence, No Urgency, No Flank Pain, No Urinary Flow Changes, No Hesitancy Musculoskeletal : No joint pain, No Myalgias, No Joint Swelling Skin : No Skin Lesions, No rash Neuro : No Weakness, No Numbness, No Paresthesias, No Loss of Consciousness, No Dizziness, No Headache Psych : No Anxiety/Panic, No Depression, No SI/HI/AH/VH Heme/Lymph: No Bruising, No Bleeding,No Lymphadenopathy Endocrine : No Polyuria, No Polydipsia, No Temperature Intolerance Yes all other systems are reviewed and are negative [facility] Past Medical History Attestation statement: The following information was validated with the patient. Medical History Afib Anxiety Depression GERD (gastroesophageal reflux disease) Migraine Pneumonia Surgical History Hx of appendectomy Hx of cholecystectomy Social History Social History Alcohol intake: never Smoking Status: Never smoker Substance Use Type: Marijuana Advance Directives: No Advance Directives Information Provided: No Advance Directives Date on File: 05/01/20 Physical Exam Vital Signs: Vital Signs: Last Vital Signs Temp 98.1 F 08/13/20 11:45 Pulse 96 08/13/20 11:45 Resp 18 08/13/20 11:45 BP 139/91 H 08/13/20 11:45 Pulse Ox 97 08/13/20 11:45 Body Mass Index 29.5 Vital signs have been reviewed as normal and appeared to be correct. Blood pre ssure normal. Heart rate normal. Respiration rate normal. Temperature normal. Oxygen saturation normal. Appearance: Alert. Oriented X3. No acute distress. Head: Normal external exam. Normocephalic. Atraumatic. Able to rotate head bilaterally. Eyes: PERRLA. EOMI. No nystagmus noted. Conjunctiva and sclera normal. Eyelids normal. Corneal reflex normal. ENT: EAC normal. TM's Normal. Hearing normal. Pharynx normal. Uvula midline. tongue midline. Moist mucous membranes. No trismus noted. No drooling noted. No muffled voice noted. No nystagmus noted. Neck: Normal inspection. Neck supple. FROM. No adenopathy. Trachea midline. Thyroid Normal. No meningeal signs. No neck mass noted. CVS: Normal heart rate and rhythm. Heart sound normal. No murmurs noted. Pulses normal throughout. Respiratory: No respiratory distress. Painless inspiration. Breath sounds normal. No wheezes/rales/rhonchi noted. Chest nontender. No accessory muscle usage noted or decreased air movement noted. Abdomen: Soft and nontender. Bowel sounds normal in all 4 quadrants. No distention noted. No organomegaly noted. No visible injury noted. Back: No CVA tenderness. Full range of motion noted. Skin: Skin warm and dry. Normal skin color. Normal skin turgor. No rashes/lesions/lacerations noted. Extremities: No lower extremity edema. Extremities exhibit normal range of motion. Extremities nontender. Able to shrug shoulders bilaterally and keep up against resistance. Neuro: Oriented X 3. No motor deficit. No sensory deficit. Reflexes normal. Moving all extremities. No focal motor deficits. Cranial nerves II-XI intact bilaterally. Facial strength normal. Normal cognition. Speech normal. Gait normal. Strength 5/5 throughout. No pronator drift. No tremor noted. No fasc iculations noted. No rigidity noted. Muscle tone normal throughout. No asterixis noted. Oettgl-oe-rwzh test normal. Heel to munroe test normal. Tandem gait normal. Does not sway with eyes open. Romberg test negative. Rapid alternating movement upper extremity normal. Rapid alternating movement lower extremity normal. Hand drop from overhead Misses face. NIHSS score 0. Course Course Course Narrative: 12:10pm - 34yoM c PMHx of situational AFib usually with vomiting, GERD, migraine headaches, depression and anxiety disorder presenting to the ED c c/o low-grade fevers from 99 through 101 orally, dry cough, chest tightness, shortness of breath, dyspnea on exertion, generalized fatigue which has been present constant for the past 3 days worse today. - Concern for COVID-19 vs PNA vs CHF vs PE - Plan: Labs, CXR, EKG, COVID/RSV/FLU then re-evaluate Reevaluation(s) Reevaluation #1: - alkaline phosphate 138 otherwise all other labs including troponin and D-dimer negative. Chest x-ray within normal limits no evidence of pneumonia or any other acute processes noted. Walking exercise trial patient's oxygen saturation states persistent at 96-97% on room air. COVID/RSV/flu pending at this time. - will DC home with antibiotics and symptomatic treatment along with instructions to return if any new or worsening symptoms and to self isolate until symptoms have improved and to return if any new or worsening symptoms. Patient understands agrees the plan. Time: 13:53 Medical Decision Making Medical Records Medical records reviewed: Yes I reviewed the patient's medical records. Lab Data Lab results reviewed: Yes I reviewed the patient's lab results. Result diagrams: 08/13/20 12:26 08/13/20 12:26 Labs: Lab Results 08/13/20 08/13/20 08/13/20 Range/Units 12:26 12:26 12:26 WBC 5.6 (4.8-10.8) X10*3/uL RBC 4.95 (4.60-5.80) X10*6/uL Hgb 14.0 (14.0-18.0) g/dl Hct 41.9 L (42-52) % MCV 84.6 (80-98) fL MCH 28.3 (27.0-33.0) pg MCHC 33.4 (31.0-36.0) g/dl RDW 12.9 (11.0-16.0) % Plt Count 267 (160-400) X10*3/uL MPV 8.4 L (9.4-12.4) fL Immature Gran % (Auto) 0.5 H (0.0-0.4) % Neut % (Auto) 44.1 L (45-73) % Lymph % (Auto) 39.3 (20-40) % Richardson % (Auto) 10.6 (2-11) % Eos % (Auto) 5.0 H (0-4) % Baso % (Auto) 0.5 (0-2) % Lymph # (Auto) 2.2 (1.2-4.9) X10*3/uL Richardson # (Auto) 0.6 (0.1-1.2) X10*3/uL Eos # (Auto) 0.3 (0.0-0.4) X10*3/uL Baso # (Auto) 0.0 (0.0-0.2) X10*3/uL Abs Immat Gran (auto) 0.03 (0.00-0.03) X10*3/uL Absolute Neuts (auto) 2.4 (2.0-8.3) X10*3/uL Absolute Nucleated RBC 0.000 (0.0-0.012) X10*3/uL Nucleated RBC % (auto) 0.0 (0.0-0.2) /100WBC PT 10.8 (10.8-13.0) SEC INR 0.9 (0.9-1.1) D-Dimer < 200 NG/ML Sodium 141 (135-145) mmol/L Potassium 3.8 (3.3-5.1) mmol/L Chloride 107 (96-108) mmol/L Carbon Dioxide 24 (22-29) mmol/L Anion Gap 14 (12-20) BUN 9 (9-16) mg/dL Creatinine 0.77 (0.5-1.4) mg/dL Estim Creat Clear Calc 147.6 Estimated GFR > 60 Random Glucose 93 (60-115) mg/dL Calcium 8.9 (8.4-10.2) mg/dL Magnesium 2.3 (1.6-2.6) mg/dL Ferritin 37 (20-250) ng/mL Total Bilirubin 0.3 (0.0-1.0) mg/dL Direct Bilirubin < 0.2 (0.0-0.5) mg/dL AST 18 (5-37) U/L ALT 24 (0-40) U/L Alkaline Phosphatase 138 H D (39-117) U/L Lactate Dehydrogenase 166 (118-273) U/L Troponin I High Sens (<3.5-35.0) ng/L C-Reactive Protein 0.34 (< or = 0.50) mg/dL Total Protein 6.9 (6.5-8.0) g/dL Albumin 4.3 (3.5-5.0) g/dL Procalcitonin ng/mL 08/13/20 08/13/20 Range/Units 12:26 12:26 WBC (4.8-10.8) X10*3/uL RBC (4.60-5.80) X10*6/uL Hgb (14.0-18.0) g/dl Hct (42-52) % MCV (80-98) fL MCH (27.0-33.0) pg MCHC (31.0-36.0) g/dl RDW (11.0-16.0) % Plt Count (160-400) X10*3/uL MPV (9.4-12.4) fL Immature Gran % (Auto) (0.0-0.4) % Neut % (Auto) (45-73) % Lymph % (Auto) (20-40) % Richardson % (Auto) (2-11) % Eos % (Auto) (0-4) % Baso % (Auto) (0-2) % Lymph # (Auto) (1.2-4.9) X10*3/uL Richardson # (Auto) (0.1-1.2) X10*3/uL Eos # (Auto) (0.0-0.4) X10*3/uL Baso # (Auto) (0.0-0.2) X10*3/uL Abs Immat Gran (auto) (0.00-0.03) X10*3/uL Absolute Neuts (auto) (2.0-8.3) X10*3/uL Absolute Nucleated RBC (0.0-0.012) X10*3/uL Nucleated RBC % (auto) (0.0-0.2) /100WBC PT (10.8-13.0) SEC INR (0.9-1.1) D-Dimer NG/ML Sodium (135-145) mmol/L Potassium (3.3-5.1) mmol/L Chloride (96-108) mmol/L Carbon Dioxide (22-29) mmol/L Anion Gap (12-20) BUN (9-16) mg/dL Creatinine (0.5-1.4) mg/dL Estim Creat Clear Calc Estimated GFR Random Glucose (60-115) mg/dL Calcium (8.4-10.2) mg/dL Magnesium (1.6-2.6) mg/dL Ferritin (20-250) ng/mL Total Bilirubin (0.0-1.0) mg/dL Direct Bilirubin (0.0-0.5) mg/dL AST (5-37) U/L ALT (0-40) U/L Alkaline Phosphatase (39-117) U/L Lactate Dehydrogenase (118-273) U/L Troponin I High Sens < 3.5 (<3.5-35.0) ng/L C-Reactive Protein (< or = 0.50) mg/dL Total Protein (6.5-8.0) g/dL Albumin (3.5-5.0) g/dL Procalcitonin < 0.02 ng/mL Imaging Data Chest x-ray: Attestation: I personally reviewed and interpreted this imaging study as follows: Radiologist's impression: FINDINGS: Lungs are clear. No consolidation, pneumothorax, or pleural effusion. Cardiac and mediastinal contours are normal. Pulmonary vasculature is unremarkable. Osseous structures are unremarkable. XR/XR chest 1V IMPRESSION: No acute cardiopulmonary findings ECG Data Attestation: I personally reviewed and interpreted this ECG as follows: Interpretation: Discharge Plan Discharge Clinical Impression: Acute viral syndrome Patient Disposition: Home, Self-Care Instructions: Viral Syndrome (ED) Additional Instructions: Based on your symptoms and history we have sent a COVID-19. Although your RESULT IS PENDING at this time. RESULTS should return within 72 hours. At this time you will be contacted with either NEGATIVE OR POSITIVE results. -Please wait until we contact you for your results. At this time you will be okay for discharge. Please plan for self quarantine for up to 14 days. Do not expose yourself to others. You may not go to work. If testing does come back negative you may return to activities as long as you are no longer having any symptoms for at least 3 days. Please continue to follow cold instructions and wash your hands frequently. You may take Tylenol as directed on the bottle for pain or fever. Patient seen in the emergency department on 08/13/2020 and should be excused from work until negative test results AND until 72 hours without any symptoms AND at least 10 days have passed since symptoms first appeared or since last exposure to COVID-19 positive patient CDC Guidelines for home isolation: - Stay away from others - WEAR A MASK if you are sick AND STAY HOME - Cover your mouth and nose with a tissue when you cough or sneeze. Dispose of tissues in a lined trash can and wash your hands immediately with soap and water for at least 20 seconds. If soap and water are not available, clean hands with alcohol-based hand veneer clipper helper that contains at least 60% alcohol. - Clean your hands often with soap and water for at least 20 seconds - Avoid touching your eyes, nose and mouth with unwashed hands - Do not share dishes, drinking glasses, cups, eating utensils, towels, or bedding with other people in your home. After using these items, wash them thoroughly with soap and water or put in the cable tester. - Clean high-touch surfaces in your isolation area ( sick room and bathroom) every day; let a caregiver clean and disinfect high-touch surfaces in other areas of the home. Clean the area or item with soap and water or another detergent if it is dirty. Then, use a household disinfectant. - Limit contact with pets and animals: If you must care for a pet, wash your hands before and after interacting with them). Prescriptions: New cyclobenzaprine 10 mg tablet 10 mg PO TID PRN (Reason: muscle spasm) Qty: 10 RF: 0 azithromycin 250 mg tablet See Rx Instructions .ROUTE .COMPLEX Qty: 6 RF: 0 ibuprofen 800 mg tablet 800 mg PO Q8H PRN (Reason: pain) Qty: 14 RF: 0 prednisone 20 mg tablet 40 mg PO DAILY 5 Days Qty: 10 RF: 0 acetaminophen [Tylenol Extra Strength] 500 mg tablet 1,000 mg PO QID PRN (Reason: fever or pain) Qty: 14 RF: 0 albuterol sulfate 90 mcg/actuation HFA aerosol inhaler 1 inh inhalation QID PRN (Reason: shortness of breath or wheezing) Qty: 8.5 RF: 0 No Action tramadol 50 mg tablet 50 mg PO Q8H PRN (Reason: pain) Qty: 7 RF: 0 cyclobenzaprine 10 mg tablet 10 mg PO TID PRN (Reason: muscle spasm) Qty: 14 RF: 0 prednisone 20 mg tablet 40 mg PO DAILY 5 Days Qty: 10 RF: 0 ondansetron 4 mg tablet,disintegrating 4 mg PO Q8H PRN (Reason: nausea and vomiting) Qty: 20 RF: 0 ispzxwapfn-cyevkxltrlayj-jztd [Fioricet] 50-300-40 mg capsule 1 cap PO Q4-6H PRN (Reason: pain) Qty: 20 RF: 0 ibuprofen 400 mg tablet 400 mg PO Q6H PRN (Reason: pain) Qty: 20 RF: 0 ondansetron 4 mg tablet,disintegrating 4 mg PO TID PRN (Reason: nausea and vomiting) 5 Days Qty: 10 RF: 0 metoclopramide HCl [Reglan] 10 mg tablet 10 mg PO Q6H PRN (Reason: nausea and vomiting) Qty: 5 RF: 0 Referrals: Coco Antoine, [employer] [Primary Care Provider] - 2 days Stand Alone Forms: Work/School Release Print Language: Greenlandic
[2020-08-13 13:02] LABS: Troponin-I High Sensitivity < 3.5 ng/L (<3.5-35.0)
[2020-08-13 13:19] LABS: Ferritin 37 ng/mL (20-250)
[2020-08-13 13:44] LABS: Procalcitonin < 0.02 ng/mL
[2020-08-13 13:55] LABS: Influenza A PCR NEGATIVE (Negative); Influenza B PCR NEGATIVE (Negative); Resp Syncy Virus RNA Qual PCR NEGATIVE (Negative); SARS COV2 PCR INHOUSE NEGATIVE (Negative)
== END 2020-08-13 14:26 | disposition home or self-care (01) ==
PROVIDERS: Physician Assistant Medical; Emergency Provider Emergency Medicine; PCP Nurse Practitioner Family
DX: B34.9 Viral infection, unspecified (principal); R50.9 Fever, unspecified; F41.9 Anxiety disorder, unspecified; Z79.899 Other long term (current) drug therapy; Z20.822 Contact with and (suspected) exposure to COVID-19
CPT/HCPCS: 0241U; 36415; 71045; 80048; 80076; 82728; 83615; 83735; 84145; 84484; 85025; 85379; 85610; 86140; 99283

== ENCOUNTER 2020-08-19 16:48 | Emergency (ER) | payer MEDICARE, MEDICAID, SELFPAY ==
--- NOTE | ~2020-08-19 | XR_ITS ---
EXAMINATION: XR FOOT, LEFT CLINICAL INFORMATION: Pain COMPARISON: 04/08/2019 TECHNIQUE: AP, lateral, and oblique views of the left foot. FINDINGS: The bones and soft tissues are normal. No fracture. Alignment is anatomic. Bipartite medial sesamoid. Joint spaces are maintained. XR/XR foot LT min 3V IMPRESSION: Normal left foot.
[2020-08-19 16:51] VITALS: BP 158/82; PULSE 90; RESP 18; TEMP 37.1; O2SAT 98; BMI 29.5
[2020-08-19 19:55] VITALS: BP 145/91; PULSE 80; RESP 18; TEMP 37.2; O2SAT 98
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
[2020-08-19] MEDS: traMADoL HCL 50 MG TABLET PO (20:18)
== END 2020-08-19 20:22 | disposition home or self-care (01) ==
PROVIDERS: Emergency Provider Internal Medicine; PCP Nurse Practitioner Family
DX: S90.32XA Contusion of left foot, initial encounter (principal); M79.672 Pain in left foot; Y29.XXXA Contact with blunt object, undetermined intent, initial encounter; Y93.9 Activity, unspecified; Y92.9 Unspecified place or not applicable; Y99.9 Unspecified external cause status; Z79.899 Other long term (current) drug therapy
CPT/HCPCS: 73630; 99283; 99284

== ENCOUNTER 2020-08-22 15:03 | Emergency (ER) | payer MEDICARE, MEDICAID, SELFPAY ==
[2020-08-22 15:51] VITALS: BP 127/89; PULSE 92; RESP 18; TEMP 37.7; O2SAT 96; BMI 29.5
--- NOTE | 2020-08-22 16:44 | ED_ITS ---
HPI - General Adult General Chief complaint: Upper Respiratory Symptoms Stated complaint: covid symptoms Time Seen by Provider: 08/22/20 16:25 Source: patient Mode of arrival: ambulatory Limitations: no limitations History of Present Illness HPI narrative: 34-year-old male who presents emergency department for evaluation of fever as high as 102? F, cough which schedule productive, pleuritic chest pain with cough on deep inspiration, shortness of breath, myalgias fatigue and loose stools. The patient states that he has been sick for approximately 2 weeks. He was seen here approximately 1 week prior in the emergency department and tested negative for COVID-19. He completed a Z-Manfred for possible bronchitis/pneumonia and he states that he felt better initially but now symptoms have returned and gotten worse. He states that his cough is occasionally productive. He complains of shortness of breath and no dyspnea on exertion. He states that he is having severe fatigue. Patient is concerned that he may be COVID positive then additional test was falsely negative. He has had no change in his sense of taste or smell. Related Data Previous Rx's Medication Instructions Recorded tramadol 50 mg PO Q8H PRN #7 tab 04/22/20 cyclobenzaprine 10 mg PO TID PRN #14 tab 04/24/20 prednisone 40 mg PO DAILY 5 Days #10 tab 04/24/20 ibuprofen 400 mg PO Q6H PRN #20 tab 06/09/20 ondansetron 4 mg PO TID PRN 5 Days #10 tab 06/09/20 metoclopramide HCl [Reglan] 10 mg PO Q6H PRN #5 tab 06/26/20 ondansetron 4 mg PO Q8H PRN #20 tab 07/12/20 brrijrpank-aqybabjrqnlcs-qpwv 1 cap PO Q4-6H PRN #20 cap 08/04/20 [Fioricet] acetaminophen [Tylenol Extra 1,000 mg PO QID PRN #14 tab 08/13/20 Strength] albuterol sulfate 1 inh INHALATION QID PRN #8.5 g 08/13/20 azithromycin See Rx Instructions .ROUTE 08/13/20 .COMPLEX #6 tab cyclobenzaprine 10 mg PO TID PRN #10 tab 08/13/20 ibuprofen 800 mg PO Q8H PRN #14 tab 08/13/20 prednisone 40 mg PO DAILY 5 Days #10 tab 08/13/20 Allergies Allergy/AdvReac Type Severity Reaction Status Date / Time diphenhydramine Allergy Unknown AGITATION Verified 08/19/20 19:59 [From BENADRYL] metoclopramide [From REGLAN] Allergy Unknown AGITATION Verified 08/19/20 19:59 prochlorperazine Allergy Unknown AGITATION Verified 08/19/20 19:59 [From COMPAZINE] Review of Systems Review of Systems: Yes all other systems are reviewed and are negative Neurologic: Reports Abnormal speech present [facility] Past Medical History Medical History Afib Anxiety Depression GERD (gastroesophageal reflux disease) Migraine Pneumonia Surgical History Hx of appendectomy Hx of cholecystectomy Social History Social History Alcohol intake: never Smoking Status: Never smoker Substance Use Type: Marijuana Advance Directives: No Advance Directives Information Provided: No Advance Directives Date on File: 05/01/20 Physical Exam Vital Signs: Vital Signs: Last Vital Signs Temp 99.9 F 08/22/20 15:51 Pulse 92 08/22/20 15:51 Resp 18 08/22/20 15:51 BP 127/89 08/22/20 15:51 Pulse Ox 96 08/22/20 15:51 Body Mass Index 29.5 Const: General: cooperative and healthy appearing Orientation/consciousness: oriented to person and oriented to place Limitations: no limitations HENMT: Head: Yes normal to inspection, Yes normocephalic and Yes atraumatic Ears: external ears normal General nose exam: Normal external nose present Face and sinus: Yes normal facial exam Mouth: Normal oral and palatal mucosa present Throat: Yes posterior oropharynx normal Eyes: Periorbital: periorbital findings normal Eyelids: Yes eyelids normal Conjunctivae: conjunctivae normal Sclerae: sclerae normal Corneas: corneas normal Pupils: Equal, round and reactive pupils present Direct Ophthalmoscopy: normal light reflex Neck: Neck: Yes full ROM, Yes no lymphadenopathy, Yes no meningeal signs, Yes trachea midline and Yes supple Chest: Chest palpation & inspection: normal inspection of the chest and normal palpation of entire chest wall Resp: Effort & Inspection: normal respiratory effort and able to speak in complete sentences Auscultation: clear to auscultation bilaterally Cardio: Rate: regular rate Rhythm: regular rhythm Heart sounds: S1 normal heart sound present, S2 normal heart sound present and no murmurs GI: Inspection: Yes normal to inspection Palpation (GI): Soft to palpation, nontender, no guarding, not rigid and No hepatosplenomegaly present : General: Yes no CVA tenderness Back/Spine/Pelvis: Back: no CVA tenderness Cervical Spine: normal cervical lordosis Thoracic/Lumbar Spine: thoracic and lumbar spine normal to inspection Skin: Lesions: no lesions Rashes: no rashes Wounds: no wounds Neuro: General: oriented to person, oriented to place and no meningeal signs Cranial nerves: Yes CN's II-XII intact bilaterally and Yes Equal, round and reactive pupils present Cognition (Neuro): normal cognition Speech: Abnormal speech present Motor exam (neuro): 5/5 motor strength present throughout Extrem: General: Yes normal to inspection and Yes full ROM Psych: Appearance: well kempt Mental Status: mental status grossly normal Speech and movement: Normal speech and movement present Affect: normal affect Attitude: cooperative Thought process: Normal thought process present Thought content: Normal thought content present Course Course Course Narrative: 34-year-old male who presents emergency department for evaluation of 2 weeks of viral URI type symptoms. Patient's physical examination revealed a low-grade fever 99.9, normal respiratory rate of 18 and normal O2 saturation 96% on room air. The patient's lung exam was clear. He did have a negative chest x-ray for approximately 1 week prior. I did order a COVID-19 test on this patient. 1715: The patient's COVID-19 test was negative. I did discuss this with the patient and the possibility of false negative testing. At this time however I suspect the patient most likely has a viral syndrome. He was advised to go home and rest, increases food and fluid intake and take Tylenol and ibuprofen for his fever and pain. The patient did complete a course of Zithromax recently and I do not think that he needs another course of antibiotics at this time and I did discuss this with him. Medical Decision Making Lab Data Labs: Lab Results 08/22/20 Range/Units 16:31 COVID-19 (SAM) Negative (Negative) COVID-19 Clin Com See Note Discharge Plan Discharge Prescriptions: No Action tramadol 50 mg tablet 50 mg PO Q8H PRN (Reason: pain) Qty: 7 RF: 0 cyclobenzaprine 10 mg tablet 10 mg PO TID PRN (Reason: muscle spasm) Qty: 14 RF: 0 prednisone 20 mg tablet 40 mg PO DAILY 5 Days Qty: 10 RF: 0 ondansetron 4 mg tablet,disintegrating 4 mg PO Q8H PRN (Reason: nausea and vomiting) Qty: 20 RF: 0 ydmnryybnu-gwbdfvlufvnso-myer [Fioricet] 50-300-40 mg capsule 1 cap PO Q4-6H PRN (Reason: pain) Qty: 20 RF: 0 cyclobenzaprine 10 mg tablet 10 mg PO TID PRN (Reason: muscle spasm) Qty: 10 RF: 0 azithromycin 250 mg tablet See Rx Instructions .ROUTE .COMPLEX Qty: 6 RF: 0 ibuprofen 800 mg tablet 800 mg PO Q8H PRN (Reason: pain) Qty: 14 RF: 0 prednisone 20 mg tablet 40 mg PO DAILY 5 Days Qty: 10 RF: 0 acetaminophen [Tylenol Extra Strength] 500 mg tablet 1,000 mg PO QID PRN (Reason: fever or pain) Qty: 14 RF: 0 albuterol sulfate 90 mcg/actuation HFA aerosol inhaler 1 inh inhalation QID PRN (Reason: shortness of breath or wheezing) Qty: 8.5 RF: 0 ibuprofen 400 mg tablet 400 mg PO Q6H PRN (Reason: pain) Qty: 20 RF: 0 ondansetron 4 mg tablet,disintegrating 4 mg PO TID PRN (Reason: nausea and vomiting) 5 Days Qty: 10 RF: 0 metoclopramide HCl [Reglan] 10 mg tablet 10 mg PO Q6H PRN (Reason: nausea and vomiting) Qty: 5 RF: 0
[2020-08-22 17:04] LABS: COVID-19 Test Negative (Negative)
== END 2020-08-22 17:40 | disposition home or self-care (01) ==
PROVIDERS: Emergency Provider Emergency Medicine Emergency Medical Services; PCP Nurse Practitioner Family
DX: R05 Cough (principal); R50.9 Fever, unspecified; Z20.822 Contact with and (suspected) exposure to COVID-19; Z79.899 Other long term (current) drug therapy
CPT/HCPCS: 36415; 87635; 99283

== ENCOUNTER 2020-09-04 17:12 | Emergency (ER) | payer MEDICARE, MEDICAID, SELFPAY ==
[2020-09-04 17:23] VITALS: BP 159/95; PULSE 113; RESP 24; TEMP 37.2; O2SAT 97; BMI 29.5
== END 2020-09-04 19:50 | disposition left against medical advice (07) ==
PROVIDERS: Emergency Provider Emergency Medicine; PCP Nurse Practitioner Family
DX: R10.9 Unspecified abdominal pain (principal); F41.9 Anxiety disorder, unspecified; I48.91 Unspecified atrial fibrillation; K21.9 Gastro-esophageal reflux disease without esophagitis; F12.90 Cannabis use, unspecified, uncomplicated; Z87.442 Personal history of urinary calculi; Z90.49 Acquired absence of other specified parts of digestive tract
CPT/HCPCS: 99281; 99282

== ENCOUNTER 2020-09-05 09:15 | Emergency (ER) | payer MEDICARE, MEDICAID, SELFPAY ==
--- NOTE | ~2020-09-05 | CT_ITS ---
EXAMINATION: CT ABDOMEN AND PELVIS WITHOUT CONTRAST CLINICAL INFORMATION: Right flank pain COMPARISON: Previous CT of the abdomen and pelvis most recent January 2020 TECHNIQUE: Multidetector volumetric imaging was performed from the superior aspect of the liver through the pubic symphysis. Sagittal and coronal reformatted images were obtained on the technologist's workstation. This CT examination was performed using dose optimization techniques as appropriate, variously including the following: *Automated exposure control *Adjustment of mA and/or kV according to patient size (this includes techniques or standardized protocols for targeted exams where dose is matched to indication/reason for exam; i.e. extremities or head) *Use of iterative reconstruction technique DLP: 700 mGy-cm FINDINGS: LUNG BASES: The visualized lung bases are unremarkable. LIVER, GALLBLADDER, AND BILIARY TREE: The liver is normal in size, shape, and attenuation. No focal hepatic lesion or biliary ductal dilatation is present. The gallbladder has been removed. PANCREAS: Unremarkable. SPLEEN: Unremarkable. ADRENAL GLANDS: Unremarkable. KIDNEYS AND URETERS: There is a 2 mm nonobstructing right lower pole renal stone. No hydronephrosis, ureteral dilatation or ureteral stone is seen. The left kidney is unremarkable. BLADDER: Unremarkable. GASTROINTESTINAL TRACT: There is mild diverticulosis of the colon. No evidence of diverticulitis is seen. The small and large bowel are otherwise unremarkable. The appendix has been removed. ABDOMINAL WALL: There are small umbilical and supraumbilical hernias containing fat. LYMPH NODES: There are small right cardiophrenic angle or anterior diaphragmatic lymph nodes that are unchanged. No enlarged lymph nodes are seen. VASCULAR: Unremarkable. PELVIC VISCERA: Unremarkable. OSSEOUS STRUCTURES: Unremarkable. CT/CT abdomen pelvis wo con IMPRESSION: Small nonobstructing right lower pole renal stone. Mild diverticulosis of the colon.
[2020-09-05 10:57] VITALS: BP 132/88; PULSE 91; RESP 18; TEMP 37; O2SAT 97; BMI 29.5
[2020-09-05 11:12] LABS: Glucose Urine UA NEG (NEG); Leukocyte Esterase Urine NEG (NEG); Nitrite Urine NEG (NEG); Urine Blood TRACE (NEG); Urine Ketones NEG (NEG); Urine Protein NEG (NEG-TRACE)
[2020-09-05 11:14] LABS: Appearance Urine HAZY; Color Urine YELLOW
[2020-09-05 11:27] LABS: Amorphous Sediment Urine 2+ /LPF; Mucus Urine TRACE /LPF; RBC Urine 0-2 /HPF (0); WBC Urine 0 /HPF (0-4)
[2020-09-05 12:19] VITALS: BP 133/94; PULSE 83; RESP 20; O2SAT 98
[2020-09-05] MEDS: 0.9 % Sodium Chloride 1,000 ML 999 ML IVCONT (12:20)
[2020-09-05] MEDS: Morphine Sulfate 2 MG/ML CARTRIDGE IVPUSH (12:20)
--- NOTE | 2020-09-05 12:21 | ED.ABDPAIN ---
HPI - Abdominal Pain General Chief Complaint: Abdominal Pain Stated Complaint: flank pain Time Seen by Provider: 09/05/20 11:42 Source: patient Mode of arrival: ambulatory History of Present Illness HPI narrative: 34-year-old male with a past medical history of AFib, anxiety, depression, GERD, renal stones, appendectomy, cholecystectomy presenting to the ED complaining of right flank pain radiating around right abdomen x2 days with associated nausea and vomiting. Reports symptoms feel like prior kidney stone. Denies fever, chills, diarrhea, dysuria/hematuria, frequency MD elicited complaint: flank pain Related Data Previous Rx's Medication Instructions Recorded tramadol 50 mg PO Q8H PRN #7 tab 04/22/20 cyclobenzaprine 10 mg PO TID PRN #14 tab 04/24/20 prednisone 40 mg PO DAILY 5 Days #10 tab 04/24/20 ibuprofen 400 mg PO Q6H PRN #20 tab 06/09/20 ondansetron 4 mg PO TID PRN 5 Days #10 tab 06/09/20 metoclopramide HCl [Reglan] 10 mg PO Q6H PRN #5 tab 06/26/20 ondansetron 4 mg PO Q8H PRN #20 tab 07/12/20 lqjbxehgzh-hmzxymqtlfcim-vbiw 1 cap PO Q4-6H PRN #20 cap 08/04/20 [Fioricet] acetaminophen [Tylenol Extra 1,000 mg PO QID PRN #14 tab 08/13/20 Strength] albuterol sulfate 1 inh INHALATION QID PRN #8.5 g 08/13/20 azithromycin See Rx Instructions .ROUTE 08/13/20 .COMPLEX #6 tab cyclobenzaprine 10 mg PO TID PRN #10 tab 08/13/20 ibuprofen 800 mg PO Q8H PRN #14 tab 08/13/20 prednisone 40 mg PO DAILY 5 Days #10 tab 08/13/20 hydrocodone-acetaminophen 1 tab PO Q8H PRN 3 Days #7 tab 09/05/20 Allergies Allergy/AdvReac Type Severity Reaction Status Date / Time diphenhydramine Allergy Unknown AGITATION Verified 09/05/20 10:57 [From BENADRYL] metoclopramide [From REGLAN] Allergy Unknown AGITATION Verified 09/05/20 10:57 prochlorperazine Allergy Unknown AGITATION Verified 09/05/20 10:57 [From COMPAZINE] Review of Systems Review of Systems Constitutional: No Fever, No Chills Cardiovascular: No Chest Pain, No SOB Respiratory: No Cough Gastrointestinal: +Nausea, +Vomiting, No Diarrhea, No Constipation, +Abdominal pain Genitourinary: No Dysuria, No Urinary Frequency, No Hematuria, No Urgency,+Flank Pain, No Urinary Flow Changes Musculoskeletal: No joint pain, No Myalgias, No Joint Swelling Skin: No Skin Lesions, No rash Yes all other systems are reviewed and are negative Physical Exam Vital Signs: Vital Signs: Last Vital Signs Temp 98.6 F 09/05/20 10:57 Pulse 83 09/05/20 12:19 Resp 20 09/05/20 12:19 BP 133/94 H 09/05/20 12:19 Pulse Ox 98 09/05/20 12:19 Body Mass Index 29.5 Const: General: cooperative and healthy appearing Orientation/consciousness: patient oriented x3 Limitations: no limitations HENMT: Head: Yes normal to inspection Ears: hearing grossly normal bilaterally General nose exam: Normal external nose present Face and sinus: Yes normal facial exam Eyes: General: appearance normal, both eyes and all related structures EOM: EOMs intact bilaterally Neck: Neck: Yes normal visual inspection Resp: Effort & Inspection: normal respiratory effort Cardio: Rate: regular rate GI: Inspection: Yes normal to inspection Palpation (GI): Soft to palpation, Tenderness to palpation present (GI) in the RLQ and in the RUQ, no guarding and not rigid : General: Yes CVA tenderness on the right Skin: Rashes: no rashes Wounds: no wounds Neuro: General: patient oriented x3 Gait exam (Neuro): Normal gait present Extrem: General: Yes normal to inspection Course Course Course Narrative: -labs unremarkable, no leukocytosis. UA with trace blood, not infected CT abdomen pelvis wo con IMPRESSION: Small nonobstructing right lower pole renal stone. Mild diverticulosis of the colon. >> results discussed with patient including neurology follow-up and strict return precautions. He verbalized understanding and feels safe for discharge home MDM - Abdominal Pain MDM Narrative Medical decision making narrative: 34-year-old male with a past medical history of AFib, anxiety, depression, GERD, renal stones, appendectomy, cholecystectomy presenting to the ED complaining of right flank pain radiating around right abdomen x2 days with associated nausea and vomiting. On exam VSS, NAD, physical exam as above. Concern for renal stone vs pancreatitis. Rule out pyelo/UTI Plan: Labs, UA, CT, IVF, symptomatic treatment, reassess Medical Records Attestation: I reviewed the patient's medical records. Lab Data Attestation: I reviewed the patient's lab results. Result diagrams: 09/05/20 12:14 09/05/20 12:14 Labs: Lab Results 09/05/20 09/05/20 09/05/20 Range/Units 10:38 12:14 12:14 WBC 6.0 (4.8-10.8) X10*3/uL RBC 5.15 (4.60-5.80) X10*6/uL Hgb 14.5 (14.0-18.0) g/dl Hct 43.2 (42-52) % MCV 83.9 (80-98) fL MCH 28.2 (27.0-33.0) pg MCHC 33.6 (31.0-36.0) g/dl RDW 12.9 (11.0-16.0) % Plt Count 267 (160-400) X10*3/uL MPV 8.4 L (9.4-12.4) fL Immature Gran % (Auto) 0.3 (0.0-0.4) % Neut % (Auto) 65.1 (45-73) % Lymph % (Auto) 23.6 (20-40) % [place] % (Auto) 7.8 (2-11) % Eos % (Auto) 2.7 (0-4) % Baso % (Auto) 0.5 (0-2) % Lymph # (Auto) 1.4 (1.2-4.9) X10*3/uL [place] # (Auto) 0.5 (0.1-1.2) X10*3/uL Eos # (Auto) 0.2 (0.0-0.4) X10*3/uL Baso # (Auto) 0.0 (0.0-0.2) X10*3/uL Abs Immat Gran (auto) 0.02 (0.00-0.03) X10*3/uL Absolute Neuts (auto) 3.9 (2.0-8.3) X10*3/uL Absolute Nucleated RBC 0.000 (0.0-0.012) X10*3/uL Nucleated RBC % (auto) 0.0 (0.0-0.2) /100WBC Hold Blue Top SEE NOTE Sodium (135-145) mmol/L Potassium (3.3-5.1) mmol/L Chloride (96-108) mmol/L Carbon Dioxide (22-29) mmol/L Anion Gap (12-20) BUN (9-16) mg/dL Creatinine (0.5-1.4) mg/dL Estim Creat Clear Calc Estimated GFR Random Glucose (60-115) mg/dL Calcium (8.4-10.2) mg/dL Total Bilirubin (0.0-1.0) mg/dL Direct Bilirubin (0.0-0.5) mg/dL AST (5-37) U/L ALT (0-40) U/L Alkaline Phosphatase (39-117) U/L Total Protein (6.5-8.0) g/dL Albumin (3.5-5.0) g/dL Lipase (8-78) U/L Urine Color YELLOW Urine Appearance HAZY Urine pH 7.0 (5.0-8.0) Ur Specific [place] 1.020 (1.005-1.025) Urine Protein NEG (NEG-TRACE) MG/DL Urine Glucose (UA) NEG (NEG) MG/DL Urine Ketones NEG (NEG) MG/DL Urine Blood TRACE (NEG) Urine Nitrite NEG (NEG) Ur Leukocyte Esterase NEG (NEG) Urine RBC 0-2 (0) /HPF Urine WBC 0 (0-4) /HPF Ur Squamous Epith Cells NONE /LPF Amorphous Sediment 2+ /LPF Urine Bacteria NONE /LPF Urine Mucus TRACE /LPF 09/05/20 Range/Units 12:14 WBC (4.8-10.8) X10*3/uL RBC (4.60-5.80) X10*6/uL Hgb (14.0-18.0) g/dl Hct (42-52) % MCV (80-98) fL MCH (27.0-33.0) pg MCHC (31.0-36.0) g/dl RDW (11.0-16.0) % Plt Count (160-400) X10*3/uL MPV (9.4-12.4) fL Immature Gran % (Auto) (0.0-0.4) % Neut % (Auto) (45-73) % Lymph % (Auto) (20-40) % [place] % (Auto) (2-11) % Eos % (Auto) (0-4) % Baso % (Auto) (0-2) % Lymph # (Auto) (1.2-4.9) X10*3/uL [place] # (Auto) (0.1-1.2) X10*3/uL Eos # (Auto) (0.0-0.4) X10*3/uL Baso # (Auto) (0.0-0.2) X10*3/uL Abs Immat Gran (auto) (0.00-0.03) X10*3/uL Absolute Neuts (auto) (2.0-8.3) X10*3/uL Absolute Nucleated RBC (0.0-0.012) X10*3/uL Nucleated RBC % (auto) (0.0-0.2) /100WBC Hold Blue Top Sodium 140 (135-145) mmol/L Potassium 4.2 (3.3-5.1) mmol/L Chloride 105 (96-108) mmol/L Carbon Dioxide 26 (22-29) mmol/L Anion Gap 13 (12-20) BUN 14 D (9-16) mg/dL Creatinine 0.89 (0.5-1.4) mg/dL Estim Creat Clear Calc 127.7 Estimated GFR > 60 Random Glucose 103 (60-115) mg/dL Calcium 9.5 D (8.4-10.2) mg/dL Total Bilirubin 0.4 (0.0-1.0) mg/dL Direct Bilirubin < 0.2 (0.0-0.5) mg/dL AST 15 (5-37) U/L ALT 35 (0-40) U/L Alkaline Phosphatase 132 H (39-117) U/L Total Protein 7.3 (6.5-8.0) g/dL Albumin 4.5 (3.5-5.0) g/dL Lipase 20 (8-78) U/L Urine Color Urine Appearance Urine pH (5.0-8.0) Ur Specific [place] (1.005-1.025) Urine Protein (NEG-TRACE) MG/DL Urine Glucose (UA) (NEG) MG/DL Urine Ketones (NEG) MG/DL Urine Blood (NEG) Urine Nitrite (NEG) Ur Leukocyte Esterase (NEG) Urine RBC (0) /HPF Urine WBC (0-4) /HPF Ur Squamous Epith Cells /LPF Amorphous Sediment /LPF Urine Bacteria /LPF Urine Mucus /LPF Discharge Plan Discharge Clinical Impression: Right renal stone Patient Disposition: Home, Self-Care Instructions: Renal Colic (ED) Additional Instructions: Your blood work was reassuring today in the ED Your CT scan showed a small stone in the lower part of her right kidney You should follow-up with urology Stay hydrated at home Continue taking high-dose ibuprofen In addition [place] is an opiate pain medication, take only when pain is severe for the next 3 days If pain persists or worsens, becomes unbearable, you are unable to eat or drink, develops fever return to the ED Prescriptions: New hydrocodone-acetaminophen 5-325 mg tablet 1 tab PO Q8H PRN (Reason: pain, severe) 3 Days Qty: 7 RF: 0 No Action tramadol 50 mg tablet 50 mg PO Q8H PRN (Reason: pain) Qty: 7 RF: 0 cyclobenzaprine 10 mg tablet 10 mg PO TID PRN (Reason: muscle spasm) Qty: 14 RF: 0 prednisone 20 mg tablet 40 mg PO DAILY 5 Days Qty: 10 RF: 0 ondansetron 4 mg tablet,disintegrating 4 mg PO Q8H PRN (Reason: nausea and vomiting) Qty: 20 RF: 0 agqqtreirm-bhbggmncyhhiz-aetm [Fioricet] 50-300-40 mg capsule 1 cap PO Q4-6H PRN (Reason: pain) Qty: 20 RF: 0 cyclobenzaprine 10 mg tablet 10 mg PO TID PRN (Reason: muscle spasm) Qty: 10 RF: 0 azithromycin 250 mg tablet See Rx Instructions .ROUTE .COMPLEX Qty: 6 RF: 0 ibuprofen 800 mg tablet 800 mg PO Q8H PRN (Reason: pain) Qty: 14 RF: 0 prednisone 20 mg tablet 40 mg PO DAILY 5 Days Qty: 10 RF: 0 acetaminophen [Tylenol Extra Strength] 500 mg tablet 1,000 mg PO QID PRN (Reason: fever or pain) Qty: 14 RF: 0 albuterol sulfate 90 mcg/actuation HFA aerosol inhaler 1 inh inhalation QID PRN (Reason: shortness of breath or wheezing) Qty: 8.5 RF: 0 ibuprofen 400 mg tablet 400 mg PO Q6H PRN (Reason: pain) Qty: 20 RF: 0 ondansetron 4 mg tablet,disintegrating 4 mg PO TID PRN (Reason: nausea and vomiting) 5 Days Qty: 10 RF: 0 metoclopramide HCl [Reglan] 10 mg tablet 10 mg PO Q6H PRN (Reason: nausea and vomiting) Qty: 5 RF: 0 Referrals: Juanjose Hackett MD [Physician] - 3 days [facility] Past Medical History Attestation statement: The following information was validated with the patient. Medical History (Updated 09/05/20 @ 13:37 by SHIVANI Benitez) Afib Anxiety Depression GERD (gastroesophageal reflux disease) Kidney stone Migraine Pneumonia Surgical History Hx of appendectomy Hx of cholecystectomy Social History Social History Alcohol intake: never Smoking Status: Never smoker Smoked in Last 30 Days: No Use of substances other than those prescribed or required for medical reasons: No Substance Use Type: Marijuana Advance Directives: No Advance Directives Information Provided: No Advance Directives Date on File: 05/01/20
[2020-09-05 12:29] LABS: MANUAL DIFF FLAG NO
[2020-09-05 12:43] LABS: Basophils Percent Auto 0.5 % (0-2); Eosinophils Absolute Auto 0.2 X10*3/uL (0.0-0.4); Eosinophils Percent Auto 2.7 % (0-4); Hematocrit 43.2 % (42-52); Hemoglobin 14.5 g/dl (14.0-18.0); Imm Gran Abs Auto 0.02 X10*3/uL (0.00-0.03); Imm Gran Pct Auto 0.3 % (0.0-0.4); Lymphocytes Absolute Auto 1.4 X10*3/uL (1.2-4.9); Lymphocytes Percent Auto 23.6 % (20-40); Mean Corpuscular HGB Conc 33.6 g/dl (31.0-36.0); Mean Corpuscular Hemoglobin 28.2 pg (27.0-33.0); Mean Corpuscular Volume 83.9 fL (80-98); Mean Platelet Volume 8.4 fL (9.4-12.4); Monocytes Absolute Auto 0.5 X10*3/uL (0.1-1.2); Monocytes Percent Auto 7.8 % (2-11); Neutrophils Absolute Auto 3.9 X10*3/uL (2.0-8.3); Neutrophils Percent Auto 65.1 % (45-73); Platelet Count 267 X10*3/uL (160-400); Red Blood Count 5.15 X10*6/uL (4.60-5.80); Red Cell Distribution Width 12.9 % (11.0-16.0)
[2020-09-05 13:24] LABS: Alanine Aminotransferase 35 U/L (0-40); Albumin Level 4.5 g/dL (3.5-5.0); Alkaline Phosphatase 132 U/L (39-117); Anion Gap 13 (12-20); Aspartate Amino Transferase 15 U/L (5-37); Bilirubin Direct < 0.2 mg/dL (0.0-0.5); Bilirubin Total 0.4 mg/dL (0.0-1.0); Blood Urea Nitrogen 14 mg/dL (9-16); Calcium 9.5 mg/dL (8.4-10.2); Carbon Dioxide 26 mmol/L (22-29); Chloride 105 mmol/L (96-108); Creatinine Clr Calc Pharmacy 127.7; Estimated Glomerular Filt Rate > 60; Glucose Random 103 mg/dL (60-115); Lipase 20 U/L (8-78); Potassium 4.2 mmol/L (3.3-5.1); Sodium 140 mmol/L (135-145); Total Protein 7.3 g/dL (6.5-8.0)
[2020-09-05] MEDS: Tamsulosin HCL 0.4 MG CAPSULE PO (14:05)
== END 2020-09-05 14:08 | disposition home or self-care (01) ==
PROVIDERS: Physician Assistant; Emergency Provider Emergency Medicine; PCP Nurse Practitioner Family
DX: N20.0 Calculus of kidney (principal); I48.91 Unspecified atrial fibrillation; F41.9 Anxiety disorder, unspecified; F32.9 Major depressive disorder, single episode, unspecified; K21.9 Gastro-esophageal reflux disease without esophagitis; Z87.442 Personal history of urinary calculi; Z90.49 Acquired absence of other specified parts of digestive tract; Z79.899 Other long term (current) drug therapy
CPT/HCPCS: 36415; 74176; 80053; 80076; 81001; 82248; 83690; 85025; 96361; 96374; 99284; J2270

== ENCOUNTER 2020-09-07 04:38 | Emergency (ER) | payer MEDICARE, MEDICAID, SELFPAY ==
--- NOTE | 2020-09-07 04:52 | ECG_ITS ---
Test Reason : Palpitations Blood Pressure : / mmHG Vent. Rate : 111 BPM Atrial Rate : 111 BPM P-R Int : 130 ms QRS Dur : 110 ms QT Int : 356 ms P-R-T Axes : 063 096 041 degrees QTc Int : 484 ms Sinus tachycardia Rightward axis Borderline ECG When compared with ECG of 26-JUN-2020 17:58, No significant change was found Referred By: Tana Grewal Electronically Signed By:LEVI MALDONADO MD
[2020-09-07 04:55] VITALS: BP 154/86; PULSE 112; RESP 12; TEMP 36.6; O2SAT 99; BMI 29.5
[2020-09-07 05:10] VITALS: PULSE 96
[2020-09-07 05:19] LABS: Basophils Percent Auto 0.6 % (0-2); Eosinophils Absolute Auto 0.3 X10*3/uL (0.0-0.4); Eosinophils Percent Auto 5.1 % (0-4); Hematocrit 40.2 % (42-52); Hemoglobin 13.8 g/dl (14.0-18.0); Imm Gran Abs Auto 0.01 X10*3/uL (0.00-0.03); Imm Gran Pct Auto 0.2 % (0.0-0.4); Lymphocytes Absolute Auto 2.4 X10*3/uL (1.2-4.9); Lymphocytes Percent Auto 44.7 % (20-40); MANUAL DIFF FLAG NO; Mean Corpuscular HGB Conc 34.3 g/dl (31.0-36.0); Mean Corpuscular Hemoglobin 28.3 pg (27.0-33.0); Mean Corpuscular Volume 82.5 fL (80-98); Mean Platelet Volume 8.4 fL (9.4-12.4); Monocytes Absolute Auto 0.5 X10*3/uL (0.1-1.2); Monocytes Percent Auto 9.4 % (2-11); Neutrophils Absolute Auto 2.1 X10*3/uL (2.0-8.3); Platelet Count 283 X10*3/uL (160-400); Red Blood Count 4.87 X10*6/uL (4.60-5.80); Red Cell Distribution Width 12.8 % (11.0-16.0); White Blood Count 5.3 X10*3/uL (4.8-10.8)
--- NOTE | 2020-09-07 05:35 | ED.ARRPALP ---
HPI - Arrhythmia/Palpitations General Chief Complaint: Arrhythmia/Palpitations Stated Complaint: AFIB Time Seen by Provider: 09/07/20 04:39 Source: patient Mode of arrival: ambulatory History of Present Illness HPI narrative: This is a 34-year-old male with history of paroxysmal atrial fibrillation and presents with onset approximately 1.5 hours ago while watching TV of ?rapid heart rate? that has not been associated by any recent fevers, chills, traveling, COVID-19 exposure, use of drugs/alcohol/cigarette smoking. Patient was last evaluated for the symptoms 04/27/2020. Patient denies being on current medication for his condition but states that the plan was that if he is noted to be in atrial fibrillation then he would need to be placed back on medication. Patient states that he is currently asymptomatic but that at that time that he was experiencing the rapid heart rate he had some associated shortness of breath but denies any fevers, chills, GI symptoms, chest pain. Related Data Previous Rx's Medication Instructions Recorded tramadol 50 mg PO Q8H PRN #7 tab 04/22/20 cyclobenzaprine 10 mg PO TID PRN #14 tab 04/24/20 prednisone 40 mg PO DAILY 5 Days #10 tab 04/24/20 ibuprofen 400 mg PO Q6H PRN #20 tab 06/09/20 ondansetron 4 mg PO TID PRN 5 Days #10 tab 06/09/20 metoclopramide HCl [Reglan] 10 mg PO Q6H PRN #5 tab 06/26/20 ondansetron 4 mg PO Q8H PRN #20 tab 07/12/20 sebwdsxdlg-dsjkmkhxzkmbq-sqcn 1 cap PO Q4-6H PRN #20 cap 08/04/20 [Fioricet] acetaminophen [Tylenol Extra 1,000 mg PO QID PRN #14 tab 08/13/20 Strength] albuterol sulfate 1 inh INHALATION QID PRN #8.5 g 08/13/20 azithromycin See Rx Instructions .ROUTE 08/13/20 .COMPLEX #6 tab cyclobenzaprine 10 mg PO TID PRN #10 tab 08/13/20 ibuprofen 800 mg PO Q8H PRN #14 tab 08/13/20 prednisone 40 mg PO DAILY 5 Days #10 tab 08/13/20 hydrocodone-acetaminophen 1 tab PO Q8H PRN 3 Days #7 tab 09/05/20 Allergies Allergy/AdvReac Type Severity Reaction Status Date / Time diphenhydramine Allergy Unknown AGITATION Verified 09/05/20 10:57 [From BENADRYL] metoclopramide [From REGLAN] Allergy Unknown AGITATION Verified 09/05/20 10:57 prochlorperazine Allergy Unknown AGITATION Verified 09/05/20 10:57 [From COMPAZINE] Review of Systems Review of Systems: Pertinent positives and negatives as stated in HPI 10 point review systems is otherwise negative. [facility] Past Medical History Source: nursing notes reviewed Medical History Afib Anxiety Depression GERD (gastroesophageal reflux disease) Kidney stone Migraine Pneumonia Surgical History Hx of appendectomy Hx of cholecystectomy Social History Social History Alcohol intake: unknown Smoking Status: Smoker, status unknown Use of substances other than those prescribed or required for medical reasons: Yes Substance Use Type: Marijuana Substance Use Frequency: Occasionally Last Used Substance: Unknown Advance Directives: No Advance Directives Date on File: 05/01/20 Physical Exam Vital Signs: Vital Signs: Last Vital Signs Temp 97.8 F 09/07/20 05:41 Pulse 90 09/07/20 05:41 Resp 13 09/07/20 05:41 BP 154/86 H 09/07/20 05:41 Pulse Ox 98 09/07/20 05:41 Body Mass Index 29.5 VITAL SIGNS: Reviewed. GENERAL: Well developed, well nourished, in no acute distress. HEAD: Normocephalic/atraumatic, EYES: PERRLA, EOMI EARS: Ext canals without abnormality NOSE: Nares patent bilateral OROPHARYNX: no oral lesions noted, posterior pharynx clear NECK: Supple, no adenopathy LUNGS: Normal breath sounds. SpO2<99> CARDIOVASCULAR: Regular rate and rhythm without noted murmurs ABDOMEN: Soft, non-tender, non-distended with bowel sounds. SKIN: Inspection of the skin reveals no rashes NEUROLOGIC: Alert and oriented x 4. Course Course Course Narrative: This is a 34-year-old male with history and clinical presentation consistent with anxiety. Immediate review of EKG shows sinus tachycardia. Will evaluate for evidence of infection, anemia, electrolyte derangement. Review of all investigations is negative for any acute findings. All results were discussed with the patient at bedside and he was strongly encouraged to follow-up with cardiology, but discussed with patient that this was likely a component of his anxiety which he agrees with. He was discharged in stable condition and states that he is feeling much improved. MDM - Arrhythmia/Palpitations Lab Data Result diagrams: 09/07/20 05:15 09/07/20 05:15 Labs: Lab Results 09/07/20 09/07/20 09/07/20 Range/Units 05:15 05:15 Unknown WBC 5.3 (4.8-10.8) X10*3/uL RBC 4.87 (4.60-5.80) X10*6/uL Hgb 13.8 L (14.0-18.0) g/dl Hct 40.2 L (42-52) % MCV 82.5 (80-98) fL MCH 28.3 (27.0-33.0) pg MCHC 34.3 (31.0-36.0) g/dl RDW 12.8 (11.0-16.0) % Plt Count 283 (160-400) X10*3/uL MPV 8.4 L (9.4-12.4) fL Immature Gran % (Auto) 0.2 (0.0-0.4) % Neut % (Auto) 40.0 L (45-73) % Lymph % (Auto) 44.7 H (20-40) % [place] % (Auto) 9.4 (2-11) % Eos % (Auto) 5.1 H (0-4) % Baso % (Auto) 0.6 (0-2) % Lymph # (Auto) 2.4 (1.2-4.9) X10*3/uL [place] # (Auto) 0.5 (0.1-1.2) X10*3/uL Eos # (Auto) 0.3 (0.0-0.4) X10*3/uL Baso # (Auto) 0.0 (0.0-0.2) X10*3/uL Abs Immat Gran (auto) 0.01 (0.00-0.03) X10*3/uL Absolute Neuts (auto) 2.1 (2.0-8.3) X10*3/uL Absolute Nucleated RBC 0.000 (0.0-0.012) X10*3/uL Nucleated RBC % (auto) 0.0 (0.0-0.2) /100WBC Sodium 139 (135-145) mmol/L Potassium 3.5 (3.3-5.1) mmol/L Chloride 102 (96-108) mmol/L Carbon Dioxide 26 (22-29) mmol/L Anion Gap 15 (12-20) BUN 13 (9-16) mg/dL Creatinine 0.96 (0.5-1.4) mg/dL Estim Creat Clear Calc 118.4 Estimated GFR > 60 Random Glucose 134 H (60-115) mg/dL Calcium 8.7 D (8.4-10.2) mg/dL Total Bilirubin 0.6 (0.0-1.0) mg/dL AST 16 (5-37) U/L ALT 31 (0-40) U/L Alkaline Phosphatase 134 H (39-117) U/L Total Protein 7.0 (6.5-8.0) g/dL Albumin 4.3 (3.5-5.0) g/dL Lipase 19 (8-78) U/L Urine Color STRAW Urine Appearance CLEAR Urine pH 5.5 (5.0-8.0) Ur Specific [place] <= 1.005 (1.005-1.025) Urine Protein NEG (NEG-TRACE) MG/DL Urine Glucose (UA) NEG (NEG) MG/DL Urine Ketones NEG (NEG) MG/DL Urine Blood TRACE (NEG) Urine Nitrite NEG (NEG) Ur Leukocyte Esterase NEG (NEG) Urine RBC 0-2 (0) /HPF Urine WBC 0-2 (0-4) /HPF Ur Squamous Epith Cells TRACE /LPF Urine Bacteria TRACE /LPF ECG Data Attestation: I personally reviewed and interpreted this ECG as follows: Prior ECG tracings: available for review (06/26/2020 no acute changes on comparison) Interpretation: Sinus tachycardia, HR-111, no evidence of acute ischemia, AK within normal limits Discharge Plan Discharge Clinical Impression: Palpitations, Anxiety Patient Disposition: Home, Self-Care Instructions: Heart Palpitations (ED), Anxiety (ED) Additional Instructions: 1. Resume all home medications as prescribed. 2. Please follow-up with your sole cutter for re-evaluation and outpatient management of your palpitations. 3. Please follow-up with your primary care provider regarding your anxiety symptoms. Do not hesitate to return to the emergency department should you experience any acute worsening of her symptoms. Prescriptions: No Action tramadol 50 mg tablet 50 mg PO Q8H PRN (Reason: pain) Qty: 7 RF: 0 cyclobenzaprine 10 mg tablet 10 mg PO TID PRN (Reason: muscle spasm) Qty: 14 RF: 0 prednisone 20 mg tablet 40 mg PO DAILY 5 Days Qty: 10 RF: 0 ondansetron 4 mg tablet,disintegrating 4 mg PO Q8H PRN (Reason: nausea and vomiting) Qty: 20 RF: 0 wxbvorhurz-scevrrbcyvlln-azpi [Fioricet] 50-300-40 mg capsule 1 cap PO Q4-6H PRN (Reason: pain) Qty: 20 RF: 0 cyclobenzaprine 10 mg tablet 10 mg PO TID PRN (Reason: muscle spasm) Qty: 10 RF: 0 azithromycin 250 mg tablet See Rx Instructions .ROUTE .COMPLEX Qty: 6 RF: 0 ibuprofen 800 mg tablet 800 mg PO Q8H PRN (Reason: pain) Qty: 14 RF: 0 prednisone 20 mg tablet 40 mg PO DAILY 5 Days Qty: 10 RF: 0 acetaminophen [Tylenol Extra Strength] 500 mg tablet 1,000 mg PO QID PRN (Reason: fever or pain) Qty: 14 RF: 0 albuterol sulfate 90 mcg/actuation HFA aerosol inhaler 1 inh inhalation QID PRN (Reason: shortness of breath or wheezing) Qty: 8.5 RF: 0 hydrocodone-acetaminophen 5-325 mg tablet 1 tab PO Q8H PRN (Reason: pain, severe) 3 Days Qty: 7 RF: 0 ibuprofen 400 mg tablet 400 mg PO Q6H PRN (Reason: pain) Qty: 20 RF: 0 ondansetron 4 mg tablet,disintegrating 4 mg PO TID PRN (Reason: nausea and vomiting) 5 Days Qty: 10 RF: 0 metoclopramide HCl [Reglan] 10 mg tablet 10 mg PO Q6H PRN (Reason: nausea and vomiting) Qty: 5 RF: 0 Interventions: ED Discharge Assessment Last Done: 09/07/20 06:34 Discharge Date/Time: 09/07/20 06:58
[2020-09-07 05:41] VITALS: BP 154/86; PULSE 90; RESP 13; TEMP 36.6; O2SAT 98
[2020-09-07 05:49] LABS: Alanine Aminotransferase 31 U/L (0-40); Albumin Level 4.3 g/dL (3.5-5.0); Alkaline Phosphatase 134 U/L (39-117); Anion Gap 15 (12-20); Aspartate Amino Transferase 16 U/L (5-37); Bilirubin Total 0.6 mg/dL (0.0-1.0); Blood Urea Nitrogen 13 mg/dL (9-16); Calcium 8.7 mg/dL (8.4-10.2); Carbon Dioxide 26 mmol/L (22-29); Chloride 102 mmol/L (96-108); Creatinine Clr Calc Pharmacy 118.4; Estimated Glomerular Filt Rate > 60; Glucose Random 134 mg/dL (60-115); Lipase 19 U/L (8-78); Potassium 3.5 mmol/L (3.3-5.1); Sodium 139 mmol/L (135-145)
[2020-09-07 06:35] LABS: Glucose Urine UA NEG (NEG); Leukocyte Esterase Urine NEG (NEG); Nitrite Urine NEG (NEG); PH 5.5 (5.0-8.0); Specific Gravity - Urine <= 1.005 (1.005-1.025); Urine Blood TRACE (NEG); Urine Ketones NEG (NEG); Urine Protein NEG (NEG-TRACE)
[2020-09-07 06:44] LABS: Appearance Urine CLEAR; Color Urine STRAW
[2020-09-07 06:49] LABS: Bacteria Urine TRACE /LPF; RBC Urine 0-2 /HPF (0); Squamous Epithelial Cell Urine TRACE /LPF; WBC Urine 0-2 /HPF (0-4)
== END 2020-09-07 06:58 | disposition home or self-care (01) ==
PROVIDERS: Emergency Provider Student in an Organized Health Care Education/Training Program
DX: R00.2 Palpitations (principal); F41.9 Anxiety disorder, unspecified; R00.0 Tachycardia, unspecified; I48.0 Paroxysmal atrial fibrillation; F12.90 Cannabis use, unspecified, uncomplicated; Z79.899 Other long term (current) drug therapy
CPT/HCPCS: 36415; 80053; 81001; 83690; 85025; 93005; 99283; 99285

== ENCOUNTER 2020-10-27 18:17 | Emergency (ER) | payer MEDICARE, MEDICAID, SELFPAY ==
[2020-10-27 18:19] VITALS: BP 168/99; PULSE 94; RESP 18; TEMP 37; O2SAT 100; BMI 31.0
--- NOTE | 2020-10-27 20:31 | ED_ITS ---
HPI - Headache General Chief Complaint: Headache Stated Complaint: Migraine Time Seen by Provider: 10/27/20 22:51 Source: patient Mode of arrival: ambulatory Limitations: no limitations History of Present Illness HPI Narrative: 35-year-old male with past medical history of chronic migraines, GERD, depression, anxiety, and AFib presents with 7-10 days of intractable migraine with photophobia. States that he has been taking his Imitrex, Motrin, Tylenol with poor effect. He presents today because the photophobia is getting worse. He did call his neurologist but cannot get an appointment until next week. He denies loss of balance, fevers, chills, weakness, chest pain or pressure, palpitations, shortness of breath, abdominal pain, abdominal distention, dysuria, hematuria, edema, and any other concerning symptoms. MD elicited complaint: migraine Onset (ago): day(s) (Ten) Onset description: gradually Location: diffuse Severity: severe Pain scale (0-10): 10 Quality & Timing: aching, throbbing, pulsatile, steady, constant and pressure Exacerbating factors: exertion, light and noise Relieving factors: nothing Associated symptoms: photophobia and sensitivity to sound Treatments prior to arrival: acetaminophen, ibuprofen, prescription analgesic and migraine medication Related Data Previous Rx's Medication Instructions Recorded tramadol 50 mg PO Q8H PRN #7 tab 04/22/20 cyclobenzaprine 10 mg PO TID PRN #14 tab 04/24/20 prednisone 40 mg PO DAILY 5 Days #10 tab 04/24/20 ibuprofen 400 mg PO Q6H PRN #20 tab 06/09/20 ondansetron 4 mg PO TID PRN 5 Days #10 tab 06/09/20 metoclopramide HCl [Reglan] 10 mg PO Q6H PRN #5 tab 06/26/20 ondansetron 4 mg PO Q8H PRN #20 tab 07/12/20 fowouvxlfp-wskhyhasxumtm-efdv 1 cap PO Q4-6H PRN #20 cap 08/04/20 [Fioricet] acetaminophen [Tylenol Extra 1,000 mg PO QID PRN #14 tab 08/13/20 Strength] albuterol sulfate 1 inh INHALATION QID PRN #8.5 g 08/13/20 azithromycin See Rx Instructions .ROUTE 01/31/21 .COMPLEX #6 tab cyclobenzaprine 10 mg PO TID PRN #10 tab 08/13/20 ibuprofen 800 mg PO Q8H PRN #14 tab 08/13/20 prednisone 40 mg PO DAILY 5 Days #10 tab 08/13/20 hydrocodone-acetaminophen 1 tab PO Q8H PRN 3 Days #7 tab 09/05/20 suhbpndxxw-ftfzmotsfpegt-hkxx 1 cap PO Q4-6H PRN #20 cap 10/27/20 [Fioricet] Allergies Allergy/AdvReac Type Severity Reaction Status Date / Time diphenhydramine Allergy Unknown AGITATION Verified 09/05/20 10:57 [From BENADRYL] metoclopramide [From REGLAN] Allergy Unknown AGITATION Verified 09/05/20 10:57 prochlorperazine Allergy Unknown AGITATION Verified 09/05/20 10:57 [From COMPAZINE] Review of Systems Review of Systems: Constitutional: Positive migraine, No Weight loss, No Fever, No Chills, No Night Sweats, No Fatigue, No Malaise ENT/Mouth: No Hearing loss, No Ear Pain, No Nasal Congestion, No Sinus Pain, No Hoarseness, No sore throat, No Rhinorrhea, No Swallowing Difficulty Eyes: Positive photophobia, No Eye Pain, No Swelling, No Redness, No Foreign Body, No Discharge, No Vision Changes Cardiovascular: No Chest Pain, No SOB, No Dyspnea on Exertion, No Orthopnea, No Edema, No Palpitations Respiratory: No Cough, No Sputum, No Wheezing, No Smoke Exposure, No Dyspnea Gastrointestinal: No Nausea, No Vomiting, No Diarrhea, No Constipation, No abdominal Pain, No Hematochezia, No Melena Genitourinary: no irregular bleeding, No Dysuria, No Urinary Frequency, No Hematuria, No Urinary Incontinence, No Urgency, No Flank Pain, No Urinary Flow Changes, No Hesitancy Musculoskeletal: No joint pain, No Myalgias, No Joint Swelling Skin: No Skin Lesions, No rash Neuro: No Weakness, No Numbness, No Paresthesias, No Loss of Consciousness, No Dizziness, No Headache Psych: No Anxiety/Panic, No Depression, No SI/HI/AH/VH, No Social Issues Heme/Lymph: No Bruising, No Bleeding,No Lymphadenopathy Endocrine: No Polyuria, No Polydipsia, No Temperature Intolerance Yes all other systems are reviewed and are negative PMFSH Past Medical History Attestation statement: The following information was validated with the patient. Source: old records reviewed Medical History Afib Anxiety Depression GERD (gastroesophageal reflux disease) Kidney stone Migraine Pneumonia Surgical History Hx of appendectomy Hx of cholecystectomy Social History Social History Alcohol intake: unknown Smoking Status: Smoker, status unknown Substance Use Type: Marijuana Advance Directives: No Advance Directives Information Provided: Yes Advance Directives Date on File: 05/01/20 Physical Exam Vital Signs: Vital Signs: Last Vital Signs Temp 97.9 F 10/27/20 20:42 Pulse 91 10/27/20 22:00 Resp 18 10/27/20 22:00 BP 145/94 H 10/27/20 22:00 Pulse Ox 98 10/27/20 22:00 Body Mass Index 31.0 Appearance: Alert. Oriented X3. Moderate distress. Head: Normal external exam. Normocephalic. Atraumatic. No Asher signs noted. No raccoon eyes noted Eyes: PERRLA. EOMI. Conjunctiva and sclera normal. Eyelids normal. ENT: TM's Normal. Pharynx normal. Uvula midline. Moist mucous membranes. No trismus noted. No drooling noted. No muffled voice noted. Neck: Normal inspection. Neck supple. No adenopathy. Thyroid Normal. No meningeal signs. No neck mass noted. CVS: Normal heart rate and rhythm. Heart sound normal. No murmurs noted. Pulses equal to all extremities. Respiratory: No respiratory distress. Painless inspiration. Breath sounds normal. No wheezes/rales/rhonchi noted. Chest nontender. No accessory muscle usage noted or decreased air movement noted. Abdomen: Soft and nontender. Bowel sounds normal in all 4 quadrants. No distention noted. No organomegaly noted. No visible injury noted. Back: No CVA tenderness. Full range of motion noted. Skin: Skin warm and dry. Normal skin color. Normal skin turgor. No rashes/lesions/lacerations noted. Extremities: No lower extremity edema. Extremities exhibit normal range of motion. Extremities nontender. Neuro: cranial nerves 2-12 intact, no focal neural deficits, strength 5/5 to all extremities, No motor deficit. No sensory deficit. Course Course Course Narrative: 35-year-old male presents with approximately 10 days of headache, 7 days being migraine with photophobia. He has a prescription for Imitrex which has been using, as well as Motrin, Tylenol, and caffeine. He states that his photophobia and nausea are getting worse and he cannot get into his neurologist until later this week. Patient does report sensitivity to Reglan, Phenergan, and Compazine. States that he has a adverse reaction to IV Benadryl but can take p.o. Benadryl. He does have full range of motion, negative Kernig's and Brudzinski sign. Headache feels like similar migraines in past. Will give supportive measures, IV fluids, Zofran, Decadron, Fioricet, and Toradol. 9:52 p.m. 7/10 pain. Will give P.o. Benadryl, sumatriptan IM, and 2nd tablet of Fioricet. 11:15 p.m. patient states to feel much better, 2/10 pain, he is awake with the lights on, able to use his phone and read. Plan of care is to discharge. Patient verbalized understanding of and agrees to plan of care to discharge home. MDM - Headache Differential Diagnosis Differential diagnosis: Likely migraine and headache Medical Records Attestation: I reviewed the patient's medical records. Discharge Plan Discharge Clinical Impression: Migraine Qualifiers: Migraine type: unspecified Status migrainosus presence: without status migrainosus Intractability: intractable Qualified Code(s): G43.919 - Migraine, unspecified, intractable, without status migrainosus Patient Disposition: Home, Self-Care Instructions: Migraine Headache (ED) Additional Instructions: You were evaluated for migraine headache. Please follow-up with neurology as scheduled. We prescribed Fioricet. Please take this medication as directed. You may take 1-2 tablets as needed every 4-6 hours. Thank you for choosing this emergency department for evaluation. Please follow-up with primary care physician as needed. Return to the emergency d epartment for any new, concerning, or worsening symptoms. Prescriptions: New oldhayejaz-aitgiukinvndf-nnsk [Fioricet] 50-300-40 mg capsule 1 cap PO Q4-6H PRN (Reason: pain) Qty: 20 RF: 0 No Action tramadol 50 mg tablet 50 mg PO Q8H PRN (Reason: pain) Qty: 7 RF: 0 cyclobenzaprine 10 mg tablet 10 mg PO TID PRN (Reason: muscle spasm) Qty: 14 RF: 0 prednisone 20 mg tablet 40 mg PO DAILY 5 Days Qty: 10 RF: 0 ondansetron 4 mg tablet,disintegrating 4 mg PO Q8H PRN (Reason: nausea and vomiting) Qty: 20 RF: 0 elcqfhffjx-tquoglnuvqrea-bbcb [Fioricet] 50-300-40 mg capsule 1 cap PO Q4-6H PRN (Reason: pain) Qty: 20 RF: 0 cyclobenzaprine 10 mg tablet 10 mg PO TID PRN (Reason: muscle spasm) Qty: 10 RF: 0 azithromycin 250 mg tablet See Rx Instructions .ROUTE .COMPLEX Qty: 6 RF: 0 ibuprofen 800 mg tablet 800 mg PO Q8H PRN (Reason: pain) Qty: 14 RF: 0 prednisone 20 mg tablet 40 mg PO DAILY 5 Days Qty: 10 RF: 0 acetaminophen [Tylenol Extra Strength] 500 mg tablet 1,000 mg PO QID PRN (Reason: fever or pain) Qty: 14 RF: 0 albuterol sulfate 90 mcg/actuation HFA aerosol inhaler 1 inh inhalation QID PRN (Reason: shortness of breath or wheezing) Qty: 8.5 RF: 0 hydrocodone-acetaminophen 5-325 mg tablet 1 tab PO Q8H PRN (Reason: pain, severe) 3 Days Qty: 7 RF: 0 ibuprofen 400 mg tablet 400 mg PO Q6H PRN (Reason: pain) Qty: 20 RF: 0 ondansetron 4 mg tablet,disintegrating 4 mg PO TID PRN (Reason: nausea and vomiting) 5 Days Qty: 10 RF: 0 metoclopramide HCl [Reglan] 10 mg tablet 10 mg PO Q6H PRN (Reason: nausea and vomiting) Qty: 5 RF: 0 Interventions: ED Discharge Assessment Last Done: 10/27/20 23:06 Discharge Date/Time: 10/27/20 23:15
[2020-10-27 20:42] VITALS: BP 160/109; PULSE 101; RESP 18; TEMP 36.6; O2SAT 97
[2020-10-27] MEDS: Butalb/Acetamin/Caff 50/325/40 TABLET 1 TAB PO ×2 (20:59→22:30)
[2020-10-27] MEDS: 0.9 % Sodium Chloride 1,000 ML 999 ML IVCONT ×2 (20:59→22:29)
[2020-10-27] MEDS: ondansetron HCL 4 MG/2 ML VIAL IVPUSH ×2 (21:00→22:29)
[2020-10-27] MEDS: Ketorolac Tromethamine 30 MG/ML VIAL IVPUSH (21:00)
[2020-10-27 22:00] VITALS: BP 145/94; PULSE 91; RESP 18; O2SAT 98
[2020-10-27] MEDS: diphenhydrAMINE HCL 25 MG TABLET PO (22:28)
== END 2020-10-27 23:15 | disposition home or self-care (01) ==
PROVIDERS: Emergency Provider Internal Medicine; PCP Nurse Practitioner Family
DX: G43.919 Migraine, unspecified, intractable, without status migrainosus (principal); I48.91 Unspecified atrial fibrillation; K21.9 Gastro-esophageal reflux disease without esophagitis; F32.9 Major depressive disorder, single episode, unspecified; F41.9 Anxiety disorder, unspecified; F12.90 Cannabis use, unspecified, uncomplicated
CPT/HCPCS: 96361; 96372; 96374; 96375; 96376; 99284; J1100; J1885; J2405; J3030; Q0163

== ENCOUNTER 2020-12-11 12:16 | Emergency (ER) | payer MEDICARE, MEDICAID, SELFPAY ==
--- NOTE | ~2020-12-11 | CT_ITS ---
EXAMINATION: CT HEAD WITHOUT CONTRAST CLINICAL INFORMATION: Right-sided headache. COMPARISON: CT head dated 08/04/2020 and MRI brain dated 10/13/2019 and 05/17/2014. TECHNIQUE: Contiguous axial imaging was performed from the skull base to vertex without intravenous administration of contrast. This CT examination was performed using dose optimization techniques as appropriate, variously including the following: *Automated exposure control *Adjustment of mA and/or kV according to patient size (this includes techniques or standardized protocols for targeted exams where dose is matched to indication/reason for exam; i.e. extremities or head) *Use of iterative reconstruction technique DLP: 809 mGy-cm FINDINGS: There is no evidence of acute intracranial hemorrhage or territorial infarction. No abnormal mass effect or midline shift is seen. Zuluaga to white matter differentiation is well preserved. No extra-axial fluid collections are identified. The ventricles are normal in size. Stable left posterior temporal lobe hypodensity. The osseous structures and soft tissues are normal. The mastoid air cells and visualized portions of the paranasal sinuses are well aerated. CT/CT head/brain wo con IMPRESSION: * No acute intracranial pathology. 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
[2020-12-11 12:50] VITALS: BP 140/87; PULSE 92; RESP 17; TEMP 36.2; O2SAT 97
--- NOTE | 2020-12-11 14:26 | ED_ITS ---
HPI - Headache General Chief Complaint: Headache Stated Complaint: migranie Time Seen by Provider: 12/11/20 13:23 Source: patient Mode of arrival: ambulatory Limitations: no limitations History of Present Illness HPI Narrative: 35-year-old male with a past medical history of chronic migraines, anxiety, depression, GERD , intermittent AFib here with complaints of generalized headache with phonophobia, photophobia and nausea and vomiting x 6 days unrelieved with home imitrex, motrin or tylenol. Patient tells me he is followed by Dr. Melendez who is his neurologist has not attempted to call him. He denies any fevers, chills, weakness, neck pain, chest pain or pressure, palpitations, shortness of breath, abdominal pain, urinary symptoms. Feels similar to migraines in the past. Related Data Previous Rx's Medication Instructions Recorded tramadol 50 mg PO Q8H PRN #7 tab 04/22/20 cyclobenzaprine 10 mg PO TID PRN #14 tab 04/24/20 prednisone 40 mg PO DAILY 5 Days #10 tab 04/24/20 ibuprofen 400 mg PO Q6H PRN #20 tab 06/09/20 ondansetron 4 mg PO TID PRN 5 Days #10 tab 06/09/20 metoclopramide HCl [Reglan] 10 mg PO Q6H PRN #5 tab 06/26/20 ondansetron 4 mg PO Q8H PRN #20 tab 07/12/20 vxuwxofite-azpgfmwvnknhs-vtts 1 cap PO Q4-6H PRN #20 cap 08/04/20 [Fioricet] acetaminophen [Tylenol Extra 1,000 mg PO QID PRN #14 tab 08/13/20 Strength] albuterol sulfate 1 inh INHALATION QID PRN #8.5 g 08/13/20 azithromycin See Rx Instructions .ROUTE 08/13/20 .COMPLEX #6 tab cyclobenzaprine 10 mg PO TID PRN #10 tab 08/13/20 ibuprofen 800 mg PO Q8H PRN #14 tab 08/13/20 prednisone 40 mg PO DAILY 5 Days #10 tab 08/13/20 hydrocodone-acetaminophen 1 tab PO Q8H PRN 3 Days #7 tab 09/05/20 ojowazuvis-synxzruqvotai-jrwd 1 cap PO Q4-6H PRN #20 cap 10/27/20 [Fioricet] Allergies Allergy/AdvReac Type Severity Reaction Status Date / Time diphenhydramine Allergy Unknown AGITATION Verified 09/05/20 10:57 [From BENADRYL] metoclopramide [From REGLAN] Allergy Unknown AGITATION Verified 09/05/20 10:57 prochlorperazine Allergy Unknown AGITATION Verified 09/05/20 10:57 [From COMPAZINE] Review of Systems Review of Systems: Yes all other systems are reviewed and are negative Constitutional: Constitutional: Reports no additional constitutional complaints, Denies body ache(s), Denies chills, Denies fever(s), Reports headache(s) and Denies weakness Eyes: Eyes: Reports no additional eye complaints, Denies change in vision and Reports photophobia ENT: Reports system reviewed and no additional complaints, except as documented, Denies dizziness, Reports headache(s), Denies nasal congestion, Denies nasal discharge and Denies neck pain Cardiovascular: Cardiovascular: Reports no additional cardiovascular complaints, Denies chest pain, Denies leg edema and Denies dyspnea Respiratory: Respiratory: Reports no additional respiratory complaints, Denies cough and Denies dyspnea Gastrointestinal: Gastrointestinal: Reports no additional gastrointestinal complaints, Denies abdominal pain, Denies diarrhea, Reports nausea and Reports vomiting Genitourinary: Genitourinary: Denies urinary incontinence Musculoskeletal: Musculoskeletal: Reports no additional musculoskeletal complaints, Denies back pain, Denies arthralgias, Denies joint swelling, Denies neck pain, Denies numbness and Denies tingling Integumentary/Breasts: Skin/Breast: Reports system reviewed and no additional complaints, except as docu and Denies rash Neurologic: Reports system reviewed and no additional complaints, except as documented, Denies Abnormal speech present, Denies dizziness, Reports headache(s), Denies numbness, Denies tingling and Denies weakness [facility] Past Medical History Attestation statement: The following information was validated with the patient. Source: old records reviewed and nursing notes reviewed Medical History Afib Anxiety Depression GERD (gastroesophageal reflux disease) Kidney stone Migraine Pneumonia Surgical History Hx of appendectomy Hx of cholecystectomy Social History Social History Alcohol intake: unknown Smoked in Last 30 Days: No Use of substances other than those prescribed or required for medical reasons: No Substance Use Type: Marijuana Advance Directives: Yes Advance Directives Information Provided: Yes Advance Directives on File: No Advance Directives Date on File: 05/01/20 Physical Exam Vital Signs: Vital Signs: Last Vital Signs Temp 98.1 F 12/11/20 18:17 Pulse 89 12/11/20 19:26 Resp 16 12/11/20 19:26 BP 123/84 12/11/20 19:26 Pulse Ox 97 12/11/20 19:21 Body Mass Index 0.2 Const: General: cooperative, healthy appearing, comfortable and no acute distress Orientation/consciousness: patient oriented x3 Limitations: no limitations HENMT: Head: Yes normal to inspection Ears: hearing grossly normal bilaterally General nose exam: Normal external nose present Face and sinus: Yes normal facial exam Mouth: Normal oral and palatal mucosa present Throat: Yes posterior oropharynx normal Eyes: General: appearance normal, both eyes and all related structures Pupils: Equal, round and reactive pupils present Direct Ophthalmoscopy: photophobia Neck: Neck: Yes normal visual inspection Chest: Chest palpation & inspection: normal inspection of the chest Resp: Effort & Inspection: normal respiratory effort Auscultation: clear to auscultation bilaterally Cardio: Rate: regular rate Rhythm: regular rhythm Peripheral pulses: Peripheral pulses 2+ throughout GI: Inspection: Yes normal to inspection Palpation (GI): Soft to palpation and nontender Auscultation: normal bowel sounds Back/Spine/Pelvis: Thoracic/Lumbar Spine: thoracic and lumbar spine normal to inspection Skin: General skin exam: no rashes or lesions noted Neuro: General: patient oriented x3, no focal motor deficits and normal sensation to monofilament Cranial nerves: Yes CN's II-XII intact bilaterally, Yes Equal, round and reactive pupils present, Yes Bilaterally intact EOM present, Yes Nystagmus not present, Yes Normal facial strength present and Yes Midline tongue present Cognition (Neuro): normal cognition Speech: No Abnormal speech present Gait exam (Neuro): Normal gait present Motor exam (neuro): 5/5 motor strength present throughout Sensory Exam: Normal double simultaneous stimulation for sensation Coordination: [id number]-iv-[id number] test normal, cfbh-wp-[id number] test normal and tandem gait normal Extrem: General: Yes normal to inspection Course Course Course Narrative: 35-year-old male with a past medical history of chronic migraines here with migraine x6 days despite taking Motrin, Tylenol and Imitrex at home. Feels very similar to previous migraines. Normal neuro exam. Hemodynamically stable. Last dose of Motrin and Tylenol at 12:00. Last dose of Imitrex 11:00 today. Patient tells me the last time he was here October 27 the medications he received significantly improved his pain. He is requesting the same. On review of record he received IV fluids, Zofran, Decadron, Fioricet, Toradol, IM Imitrex. Unable to give patient Toradol due to last dose of Motrin. He tells me that he has a dystonic reaction to IV Reglan, Compazine and Benadryl and does not want these medications. Therefore, will give 2 L of IV fluids, Zofran, Decadron, Fioricet and IM Imitrex and reassess. 1615-Continued pain. Can now give toradol IV. Fluids continuing. 1800-continued pain 6/10 described as throbbing on the right side. Due to persistent intractable pain will check CT head. Give low-dose morphine and reassess. 2030-CT shows no acute intracranial pathology. Stable left posterior temporal lobe hypodensity previously visualized. Pain is now resolved. Patient tolerating p.o. and feels much improved. Likely migraine. Reviewed worrisome signs and symptoms and when to return to the emergency department. Comfortable discharge home. MDM - Headache Differential Diagnosis Differential diagnosis: Likely migraine, tension headache and subarachnoid hemorrhage Medical Records Attestation: I reviewed the patient's medical records. Lab Data Attestation: I reviewed the patient's lab results. Labs: Lab Results 12/11/20 12/11/20 Range/Units 14:49 14:49 Hold Purple Top SEE NOTE Hold Yellow Top See Note Imaging Data CT scan - head: Attestation: I personally reviewed and interpreted this imaging study as follows: Radiologist's impression: FINDINGS: There is no evidence of acute intracranial hemorrhage or territorial infarction. No abnormal mass effect or midline shift is seen. Zuluaga to white matter differentiation is well preserved. No extra-axial fluid collections are identified. The ventricles are normal in size. Stable left posterior temporal lobe hypodensity. The osseous structures and soft tissues are normal. The mastoid air cells and visualized portions of the paranasal sinuses are well aerated. CT/CT head/brain wo con IMPRESSION: * No acute intracranial pathology. 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 Discharge Plan Discharge Clinical Impression: Migraine Patient Disposition: Home, Self-Care Instructions: Migraine Headache (ED) Additional Instructions: Follow-up with Dr. Melendez Avoid migraine triggers Prescriptions: No Action tramadol 50 mg tablet 50 mg PO Q8H PRN (Reason: pain) Qty: 7 RF: 0 cyclobenzaprine 10 mg tablet 10 mg PO TID PRN (Reason: muscle spasm) Qty: 14 RF: 0 prednisone 20 mg tablet 40 mg PO DAILY 5 Days Qty: 10 RF: 0 ondansetron 4 mg tablet,disintegrating 4 mg PO Q8H PRN (Reason: nausea and vomiting) Qty: 20 RF: 0 xitrqxkpqc-vlxwtvvwdkwcr-rpio [Fioricet] 50-300-40 mg capsule 1 cap PO Q4-6H PRN (Reason: pain) Qty: 20 RF: 0 cyclobenzaprine 10 mg tablet 10 mg PO TID PRN (Reason: muscle spasm) Qty: 10 RF: 0 azithromycin 250 mg tablet See Rx Instructions .ROUTE .COMPLEX Qty: 6 RF: 0 ibuprofen 800 mg tablet 800 mg PO Q8H PRN (Reason: pain) Qty: 14 RF: 0 prednisone 20 mg tablet 40 mg PO DAILY 5 Days Qty: 10 RF: 0 acetaminophen [Tylenol Extra Strength] 500 mg tablet 1,000 mg PO QID PRN (Reason: fever or pain) Qty: 14 RF: 0 albuterol sulfate 90 mcg/actuation HFA aerosol inhaler 1 inh inhalation QID PRN (Reason: shortness of breath or wheezing) Qty: 8.5 RF: 0 hydrocodone-acetaminophen 5-325 mg tablet 1 tab PO Q8H PRN (Reason: pain, severe) 3 Days Qty: 7 RF: 0 sysmfcnrgj-xyernesoymvkp-jpwq [Fioricet] 50-300-40 mg capsule 1 cap PO Q4-6H PRN (Reason: pain) Qty: 20 RF: 0 ibuprofen 400 mg tablet 400 mg PO Q6H PRN (Reason: pain) Qty: 20 RF: 0 ondansetron 4 mg tablet,disintegrating 4 mg PO TID PRN (Reason: nausea and vomiting) 5 Days Qty: 10 RF: 0 metoclopramide HCl [Reglan] 10 mg tablet 10 mg PO Q6H PRN (Reason: nausea and vomiting) Qty: 5 RF: 0 Referrals: Physician,Unknown [Primary Care Provider] - 2 days
[2020-12-11] MEDS: Butalb/Acetamin/Caff 50/325/40 TABLET 2 TAB PO (14:55)
[2020-12-11] MEDS: 0.9 % Sodium Chloride 2,000 ML 999 ML IV (14:55)
[2020-12-11] MEDS: ondansetron HCL 4 MG/2 ML VIAL IVPUSH (14:56)
[2020-12-11 15:00] VITALS: BP 120/70; PULSE 65; RESP 18; O2SAT 97
[2020-12-11] MEDS: Ketorolac Tromethamine 30 MG/ML VIAL IVPUSH (16:36)
[2020-12-11 18:17] VITALS: BP 128/86; PULSE 88; RESP 14; TEMP 36.7; O2SAT 97
[2020-12-11] MEDS: Morphine Sulfate 4 MG/ML CARTRIDGE IVPUSH (18:20)
[2020-12-11 19:21] VITALS: BP 123/84; PULSE 89; RESP 16; O2SAT 97
[2020-12-11 19:26] VITALS: BP 123/84; PULSE 89; RESP 16
== END 2020-12-11 20:40 | disposition home or self-care (01) ==
PROVIDERS: Nurse Practitioner Family; Emergency Provider Emergency Medicine Emergency Medical Services
DX: G43.909 Migraine, unspecified, not intractable, without status migrainosus (principal); I48.91 Unspecified atrial fibrillation; F12.90 Cannabis use, unspecified, uncomplicated; Z90.49 Acquired absence of other specified parts of digestive tract; Z87.442 Personal history of urinary calculi
CPT/HCPCS: 36415; 70450; 96361; 96372; 96374; 96375; 99284; J1100; J1885; J2270; J2405; J3030

== ENCOUNTER 2020-12-13 13:03 | Emergency (ER) | payer MEDICARE, MEDICAID, SELFPAY ==
[2020-12-13] VITALS (12 sets, daily range): BP systolic 107–131; BP diastolic 65–81; PULSE 75–177; RESP 14–18; TEMP 36.7; O2SAT 96–100; BMI 29.5
--- NOTE | 2020-12-13 | ECG_ITS ---
Test Reason : PALPITATIONS Blood Pressure : / mmHG Vent. Rate : 167 BPM Atrial Rate : 166 BPM P-R Int : 000 ms QRS Dur : 102 ms QT Int : 302 ms P-R-T Axes : 000 111 018 degrees QTc Int : 503 ms Atrial fibrillation with rapid ventricular response Right axis deviation Nonspecific ST abnormality Abnormal ECG When compared with ECG of 07-SEP-2020 04:58, Atrial fibrillation has replaced Sinus rhythm Vent. rate has increased BY [address] now depressed in Anterior leads Referred By: Keli Morton Electronically Signed By:Estevan Ann
--- NOTE | ~2020-12-13 | XR_ITS ---
EXAMINATION: XR CHEST CLINICAL INFORMATION: Palpitations COMPARISON: Chest radiographs 08/13/2020, 04/22/2020 TECHNIQUE: Portable upright AP x2 views of the chest was obtained. FINDINGS: The lungs are clear. The heart is normal in size. The vascularity is normal. There is no vascular congestion, airspace consolidation, groundglass opacity, or effusion. The costophrenic sulci are clear. The hilar and mediastinal contours and bony structures are unremarkable. XR/XR chest 1V IMPRESSION: Unremarkable examination.
--- NOTE | 2020-12-13 07:41 | ECG_ITS ---
Test Reason : CONVERSTION OF RATE Blood Pressure : / mmHG Vent. Rate : 081 BPM Atrial Rate : 081 BPM P-R Int : 158 ms QRS Dur : 122 ms QT Int : 416 ms P-R-T Axes : 057 099 034 degrees QTc Int : 483 ms Normal sinus rhythm Rightward axis Non-specific intra-ventricular conduction delay Borderline ECG When compared with ECG of 13-DEC-2020 13:09, Sinus rhythm has replaced Atrial fibrillation Vent. rate has decreased BY [address] no longer depressed in Anterolateral leads Nonspecific T wave abnormality no longer evident in Lateral leads Referred By: Keli Morton Electronically Signed By:Estevan Ann
--- NOTE | 2020-12-13 13:14 | ED.ARRPALP ---
HPI - Arrhythmia/Palpitations General Chief Complaint: Arrhythmia/Palpitations Stated Complaint: RAPID HEART BEAT SOB Time Seen by Provider: 12/13/20 13:11 Source: patient and old records reviewed Mode of arrival: ambulatory Limitations: no limitations History of Present Illness MD complaint: rapid heart beat, heart racing , skipped beats and palpitations Onset (ago): day(s) (since 1am) Duration: constant Severity: moderate Context: occurred during rest Arrhythmia history: atrial fibrillation Associated symptoms: shortness of breath Related Data Previous Rx's Medication Instructions Recorded tramadol 50 mg PO Q8H PRN #7 tab 04/22/20 cyclobenzaprine 10 mg PO TID PRN #14 tab 04/24/20 prednisone 40 mg PO DAILY 5 Days #10 tab 04/24/20 ibuprofen 400 mg PO Q6H PRN #20 tab 06/09/20 ondansetron 4 mg PO TID PRN 5 Days #10 tab 06/09/20 metoclopramide HCl [Reglan] 10 mg PO Q6H PRN #5 tab 06/26/20 ondansetron 4 mg PO Q8H PRN #20 tab 07/12/20 kumeuindjm-mambieewizykq-clav 1 cap PO Q4-6H PRN #20 cap 08/04/20 [Fioricet] acetaminophen [Tylenol Extra 1,000 mg PO QID PRN #14 tab 08/13/20 Strength] albuterol sulfate 1 inh INHALATION QID PRN #8.5 g 08/13/20 azithromycin See Rx Instructions .ROUTE 08/13/20 .COMPLEX #6 tab cyclobenzaprine 10 mg PO TID PRN #10 tab 08/13/20 ibuprofen 800 mg PO Q8H PRN #14 tab 08/13/20 prednisone 40 mg PO DAILY 5 Days #10 tab 08/13/20 hydrocodone-acetaminophen 1 tab PO Q8H PRN 3 Days #7 tab 09/05/20 yqpglfltim-zbwdhjwfeckqu-qhqd 1 cap PO Q4-6H PRN #20 cap 10/27/20 [Fioricet] Allergies Allergy/AdvReac Type Severity Reaction Status Date / Time metoclopramide [From REGLAN] Allergy Unknown AGITATION Verified 12/13/20 13:13 prochlorperazine Allergy Unknown AGITATION Verified 12/13/20 13:13 [From COMPAZINE] diphenhydramine AdvReac Unknown AGITATION Verified 12/13/20 13:13 [From BENADRYL] Review of Systems Review of Systems: Constitutional : No Weight loss, No Fever, No Chills ENT/Mouth : No sore throat, No Rhinorrhea Eyes: No Eye Pain, No Swelling Cardiovascular : no Chest Pain, pos SOB, no Dyspnea on Exertion, No Orthopnea, No Edema, pos Palpitations Respiratory : No Cough, No Sputum Gastrointestinal : pos Nausea, No Vomiting, No Diarrhea, No abdominal Pain, No Hematochezia, No Melena Genitourinary : No Dysuria, No Urinary Frequency Musculoskeletal : No joint pain, No Myalgias, No Joint Swelling Skin : No Skin Lesions, No rash Neuro : No Weakness, No Numbness, No Dizziness, No Headache Psych : No Anxiety/Panic, No Depression Heme/Lymph: No Bruising, No Lymphadenopathy Endocrine : No Polyuria, No Polydipsia All other systems reviewed and are negative [facility] Past Medical History Attestation statement: The following information was validated with the patient. Medical History Afib Anxiety Depression GERD (gastroesophageal reflux disease) Kidney stone Migraine Pneumonia Surgical History Hx of appendectomy Hx of cholecystectomy Social History Social History (Updated 12/13/20 @ 13:25 by Keli Morton DO) Alcohol intake: current Alcohol intake frequency: 0-2 drinks per day Patient Tobacco Use Status: Never used Tobacco Use of substances other than those prescribed or required for medical reasons: No Substance Use Type: Marijuana Advance Directives: No Advance Directives Information Provided: No Advance Directives Date on File: 05/01/20 Physical Exam Vital Signs: Vital Signs: Last Vital Signs Temp 98.1 F 12/13/20 13:13 Pulse 76 12/13/20 16:41 Resp 16 12/13/20 16:41 BP 122/72 12/13/20 16:41 Pulse Ox 96 12/13/20 16:41 Body Mass Index 29.5 Appearance: Alert. Oriented X3. Anxious mild acute distress. Eyes: Pupils equal, round and reactive to light. ENT: Pharynx normal. Neck: Normal inspection. Neck supple. CVS: tachycardic irregular heart rate and rhythm. Pulses normal. Respiratory: No respiratory distress. Breath sounds normal. Abdomen: Soft and non-tender. Skin: Skin warm and dry. Normal skin color. Normal skin turgor. Extremities: No lower extremity edema. No calf ttp Neuro: Oriented X 3. No motor deficit. No sensory deficit. Course Course Course Narrative: HR down to 130s will start on dilt gtt and observe patient wants to be cardioverted aware of risks of and stroke, will try 300mg of fleicanide and keep on dilt gtt 5mg patient initially wanted to be mechanical cardioversion but will defer to PO at [facility] after risks discussed. at this time the patient will need tele until 930pm for arrhythmias Patient placed in physician observation at 338pm. The indication for observation is that the patient needs more time to see if afib with RVR improves or they will need to be admitted/electrical cardioversion. At this time the patient is well developed well nourished, lungs clear, CV tachycardic and irregular, abd nontender, neuro is intact. signed out to Dr. 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 - at this time given hx doubt PE/ACS will need labs, CXR, EKG, IV diltiazem - he denies ETOH and cocaine abuse Lab Data Result diagrams: 12/13/20 13:35 12/13/20 13:35 Labs: Lab Results 12/13/20 12/13/20 12/13/20 Range/Units 13:35 13:35 13:35 WBC 10.0 (4.8-10.8) X10*3/uL RBC 4.84 (4.60-5.80) X10*6/uL Hgb 13.6 L (14.0-18.0) g/dl Hct 40.6 L (42-52) % MCV 83.9 (80-98) fL MCH 28.1 (27.0-33.0) pg MCHC 33.5 (31.0-36.0) g/dl RDW 13.2 (11.0-16.0) % Plt Count 341 (160-400) X10*3/uL MPV 8.3 L (9.4-12.4) fL Immature Gran % (Auto) 0.2 (0.0-0.4) % Neut % (Auto) 42.1 L (45-73) % Lymph % (Auto) 46.1 H (20-40) % [place] % (Auto) 9.0 (2-11) % Eos % (Auto) 2.2 (0-4) % Baso % (Auto) 0.4 (0-2) % Lymph # (Auto) 4.6 (1.2-4.9) X10*3/uL [place] # (Auto) 0.9 (0.1-1.2) X10*3/uL Eos # (Auto) 0.2 (0.0-0.4) X10*3/uL Baso # (Auto) 0.0 (0.0-0.2) X10*3/uL Abs Immat Gran (auto) 0.02 (0.00-0.03) X10*3/uL Absolute Neuts (auto) 4.2 (2.0-8.3) X10*3/uL Absolute Nucleated RBC 0.000 (0.0-0.012) X10*3/uL Nucleated RBC % (auto) 0.0 (0.0-0.2) /100WBC PT 12.2 (10.8-13.0) SEC INR 1.0 (0.9-1.1) APTT 36.9 (24.1-38.0) SEC Sodium (135-145) mmol/L Potassium (3.3-5.1) mmol/L Chloride (96-108) mmol/L Carbon Dioxide (22-29) mmol/L Anion Gap (12-20) BUN (9-16) mg/dL Creatinine (0.5-1.4) mg/dL Estim Creat Clear Calc Estimated GFR Random Glucose (60-115) mg/dL Calcium (8.4-10.2) mg/dL Magnesium (1.6-2.6) mg/dL Total Bilirubin (0.0-1.0) mg/dL Direct Bilirubin (0.0-0.5) mg/dL AST (5-37) U/L ALT (0-40) U/L Alkaline Phosphatase (39-117) U/L Troponin I High Sens (<3.5-35.0) ng/L B-Natriuretic Peptide 347 H (<100) pg/mL Total Protein (6.5-8.0) g/dL Albumin (3.5-5.0) g/dL TSH (0.32-4.0) uIU/mL Ethyl Alcohol mg/dL COVID-19 (SAM) (Negative) COVID-19 Clin Com 12/13/20 12/13/20 12/13/20 Range/Units 13:35 13:35 13:46 WBC (4.8-10.8) X10*3/uL RBC (4.60-5.80) X10*6/uL Hgb (14.0-18.0) g/dl Hct (42-52) % MCV (80-98) fL MCH (27.0-33.0) pg MCHC (31.0-36.0) g/dl RDW (11.0-16.0) % Plt Count (160-400) X10*3/uL MPV (9.4-12.4) fL Immature Gran % (Auto) (0.0-0.4) % Neut % (Auto) (45-73) % Lymph % (Auto) (20-40) % [place] % (Auto) (2-11) % Eos % (Auto) (0-4) % Baso % (Auto) (0-2) % Lymph # (Auto) (1.2-4.9) X10*3/uL [place] # (Auto) (0.1-1.2) X10*3/uL Eos # (Auto) (0.0-0.4) X10*3/uL Baso # (Auto) (0.0-0.2) X10*3/uL Abs Immat Gran (auto) (0.00-0.03) X10*3/uL Absolute Neuts (auto) (2.0-8.3) X10*3/uL Absolute Nucleated RBC (0.0-0.012) X10*3/uL Nucleated RBC % (auto) (0.0-0.2) /100WBC PT (10.8-13.0) SEC INR (0.9-1.1) APTT (24.1-38.0) SEC Sodium 144 (135-145) mmol/L Potassium 3.2 L (3.3-5.1) mmol/L Chloride 108 (96-108) mmol/L Carbon Dioxide 26 (22-29) mmol/L Anion Gap 13 (12-20) BUN 13 (9-16) mg/dL Creatinine 1.13 (0.5-1.4) mg/dL Estim Creat Clear Calc 99.6 Estimated GFR > 60 Random Glucose 85 D (60-115) mg/dL Calcium 8.9 (8.4-10.2) mg/dL Magnesium 2.6 (1.6-2.6) mg/dL Total Bilirubin 0.5 (0.0-1.0) mg/dL Direct Bilirubin 0.2 (0.0-0.5) mg/dL AST 13 (5-37) U/L ALT 16 (0-40) U/L Alkaline Phosphatase 128 H (39-117) U/L Troponin I High Sens 20.0 (<3.5-35.0) ng/L B-Natriuretic Peptide (<100) pg/mL Total Protein 6.8 (6.5-8.0) g/dL Albumin 4.3 (3.5-5.0) g/dL TSH 3.02 (0.32-4.0) uIU/mL Ethyl Alcohol mg/dL COVID-19 (SAM) Negative (Negative) COVID-19 Clin Com See Note 12/13/20 Range/Units 13:46 WBC (4.8-10.8) X10*3/uL RBC (4.60-5.80) X10*6/uL Hgb (14.0-18.0) g/dl Hct (42-52) % MCV (80-98) fL MCH (27.0-33.0) pg MCHC (31.0-36.0) g/dl RDW (11.0-16.0) % Plt Count (160-400) X10*3/uL MPV (9.4-12.4) fL Immature Gran % (Auto) (0.0-0.4) % Neut % (Auto) (45-73) % Lymph % (Auto) (20-40) % [place] % (Auto) (2-11) % Eos % (Auto) (0-4) % Baso % (Auto) (0-2) % Lymph # (Auto) (1.2-4.9) X10*3/uL [place] # (Auto) (0.1-1.2) X10*3/uL Eos # (Auto) (0.0-0.4) X10*3/uL Baso # (Auto) (0.0-0.2) X10*3/uL Abs Immat Gran (auto) (0.00-0.03) X10*3/uL Absolute Neuts (auto) (2.0-8.3) X10*3/uL Absolute Nucleated RBC (0.0-0.012) X10*3/uL Nucleated RBC % (auto) (0.0-0.2) /100WBC PT (10.8-13.0) SEC INR (0.9-1.1) APTT (24.1-38.0) SEC Sodium (135-145) mmol/L Potassium (3.3-5.1) mmol/L Chloride (96-108) mmol/L Carbon Dioxide (22-29) mmol/L Anion Gap (12-20) BUN (9-16) mg/dL Creatinine (0.5-1.4) mg/dL Estim Creat Clear Calc Estimated GFR Random Glucose (60-115) mg/dL Calcium (8.4-10.2) mg/dL Magnesium (1.6-2.6) mg/dL Total Bilirubin (0.0-1.0) mg/dL Direct Bilirubin (0.0-0.5) mg/dL AST (5-37) U/L ALT (0-40) U/L Alkaline Phosphatase (39-117) U/L Troponin I High Sens (<3.5-35.0) ng/L B-Natriuretic Peptide (<100) pg/mL Total Protein (6.5-8.0) g/dL Albumin (3.5-5.0) g/dL TSH (0.32-4.0) uIU/mL Ethyl Alcohol < 10 mg/dL COVID-19 (SAM) (Negative) COVID-19 Clin Com ECG Data Attestation: I personally reviewed and interpreted this ECG as follows: ECG interpretation date: 12/13/20 ECG interpretation time: 13:23 Interpretation: Rate: 150s Rhythm: afib with RVR [place]: normal Normal QRS complex. ST T wave : nonspecific, no MARSHAL qTC: normal prior studies: no acute ischemia The study has been interpreted contemporaneously by me. . EKG #2 Rate: 81 Rhythm: NSR [place]: right Normal P waves. Normal TERI. NSIVCD ST T wave : no MARSHAL< nonspecific qTC: normal prior studies: no acute ischemia The study has been interpreted contemporaneously by me. . Critical Care Time Critical Care Time Critical Care Time: Yes Total Critical Care Time: 60 Attestation: repeat dilt, diltiazem gtt, medical consult, chemical cardioversion I attest to this time spent taking care of the patient Discharge Plan Discharge Clinical Impression: Atrial fibrillation with rapid ventricular response, Acute hypokalemia Prescriptions: No Action tramadol 50 mg tablet 50 mg PO Q8H PRN (Reason: pain) Qty: 7 RF: 0 cyclobenzaprine 10 mg tablet 10 mg PO TID PRN (Reason: muscle spasm) Qty: 14 RF: 0 prednisone 20 mg tablet 40 mg PO DAILY 5 Days Qty: 10 RF: 0 ondansetron 4 mg tablet,disintegrating 4 mg PO Q8H PRN (Reason: nausea and vomiting) Qty: 20 RF: 0 okrjwpkvhn-jcnwtupbdlgmy-zszq [Fioricet] 50-300-40 mg capsule 1 cap PO Q4-6H PRN (Reason: pain) Qty: 20 RF: 0 cyclobenzaprine 10 mg tablet 10 mg PO TID PRN (Reason: muscle spasm) Qty: 10 RF: 0 azithromycin 250 mg tablet See Rx Instructions .ROUTE .COMPLEX Qty: 6 RF: 0 ibuprofen 800 mg tablet 800 mg PO Q8H PRN (Reason: pain) Qty: 14 RF: 0 prednisone 20 mg tablet 40 mg PO DAILY 5 Days Qty: 10 RF: 0 acetaminophen [Tylenol Extra Strength] 500 mg tablet 1,000 mg PO QID PRN (Reason: fever or pain) Qty: 14 RF: 0 albuterol sulfate 90 mcg/actuation HFA aerosol inhaler 1 inh inhalation QID PRN (Reason: shortness of breath or wheezing) Qty: 8.5 RF: 0 hydrocodone-acetaminophen 5-325 mg tablet 1 tab PO Q8H PRN (Reason: pain, severe) 3 Days Qty: 7 RF: 0 rwwrkcrbyp-bcadnkcfmkbql-sxdk [Fioricet] 50-300-40 mg capsule 1 cap PO Q4-6H PRN (Reason: pain) Qty: 20 RF: 0 ibuprofen 400 mg tablet 400 mg PO Q6H PRN (Reason: pain) Qty: 20 RF: 0 ondansetron 4 mg tablet,disintegrating 4 mg PO TID PRN (Reason: nausea and vomiting) 5 Days Qty: 10 RF: 0 metoclopramide HCl [Reglan] 10 mg tablet 10 mg PO Q6H PRN (Reason: nausea and vomiting) Qty: 5 RF: 0
[2020-12-13] MEDS: dilTIAZem HCL 50 MG/10 ML VIAL 10 MG IVPUSH (13:25)
[2020-12-13 13:55] LABS: MANUAL DIFF FLAG NO
[2020-12-13 13:57] LABS: Basophils Percent Auto 0.4 % (0-2); Eosinophils Absolute Auto 0.2 X10*3/uL (0.0-0.4); Eosinophils Percent Auto 2.2 % (0-4); Hematocrit 40.6 % (42-52); Hemoglobin 13.6 g/dl (14.0-18.0); Imm Gran Abs Auto 0.02 X10*3/uL (0.00-0.03); Imm Gran Pct Auto 0.2 % (0.0-0.4); Lymphocytes Absolute Auto 4.6 X10*3/uL (1.2-4.9); Lymphocytes Percent Auto 46.1 % (20-40); Mean Corpuscular HGB Conc 33.5 g/dl (31.0-36.0); Mean Corpuscular Hemoglobin 28.1 pg (27.0-33.0); Mean Corpuscular Volume 83.9 fL (80-98); Mean Platelet Volume 8.3 fL (9.4-12.4); Monocytes Absolute Auto 0.9 X10*3/uL (0.1-1.2); Neutrophils Absolute Auto 4.2 X10*3/uL (2.0-8.3); Neutrophils Percent Auto 42.1 % (45-73); Platelet Count 341 X10*3/uL (160-400); Red Blood Count 4.84 X10*6/uL (4.60-5.80); Red Cell Distribution Width 13.2 % (11.0-16.0)
[2020-12-13] MEDS: dilTIAZem HCL 125 MG in 0.9 % Sodium Chloride 100 ML 10 MG IVCONT (13:59)
[2020-12-13 14:02] LABS: Prothrombin Time 12.2 SEC (10.8-13.0)
--- NOTE | 2020-12-13 14:04 | PC.NURSE ---
Pt given 10mg cardizem bolus with little effect. Blood and covid swab sent to lab. Pt placed on cardizem drip. His BP i trending down. Cuff set for auto re-assessment every 15 minutes. Will continue to monitor.
[2020-12-13 14:05] LABS: Partial Thromboplastin Time 36.9 SEC (24.1-38.0)
[2020-12-13 14:10] LABS: COVID-19 Test Negative (Negative); IDNOW Serial# 9DD0AD1C
[2020-12-13 14:26] LABS: Ethanol < 10 mg/dL
[2020-12-13 14:31] LABS: B Type Natriuretic Peptide 347 pg/mL (<100)
[2020-12-13 14:32] LABS: Alanine Aminotransferase 16 U/L (0-40); Albumin Level 4.3 g/dL (3.5-5.0); Alkaline Phosphatase 128 U/L (39-117); Anion Gap 13 (12-20); Aspartate Amino Transferase 13 U/L (5-37); Bilirubin Direct 0.2 mg/dL (0.0-0.5); Bilirubin Total 0.5 mg/dL (0.0-1.0); Blood Urea Nitrogen 13 mg/dL (9-16); Calcium 8.9 mg/dL (8.4-10.2); Carbon Dioxide 26 mmol/L (22-29); Chloride 108 mmol/L (96-108); Creatinine Clr Calc Pharmacy 99.6; Estimated Glomerular Filt Rate > 60; Glucose Random 85 mg/dL (60-115); Magnesium 2.6 mg/dL (1.6-2.6); Potassium 3.2 mmol/L (3.3-5.1); Sodium 144 mmol/L (135-145); Total Protein 6.8 g/dL (6.5-8.0)
--- NOTE | 2020-12-13 14:33 | PC.NURSE ---
PT HERE WITH RAPID AFIB, GIVEN DILT IV WITH NO EFFECT NOW ON GTT. CURRENTLY AT 15MG/HR.
[2020-12-13] MEDS: Potassium Chloride ER 20 MEQ TAB.ER.PRT 40 MEQ PO (14:46)
[2020-12-13 14:54] LABS: Thyroid Stimulating Hormone 3.02 uIU/mL (0.32-4.0)
--- NOTE | 2020-12-13 15:10 | PC.NURSE ---
per md titrate patient down to 5mg/hr of dilt then administer flecanide.
--- NOTE | 2020-12-13 15:22 | PC.NURSE ---
[facility]
[2020-12-13] MEDS: Flecainide Acetate 50 MG TABLET 300 MG PO (15:26)
--- NOTE | 2020-12-13 16:42 | PC.NURSE ---
notfied of conversion. dilt drip stopped.
--- NOTE | 2020-12-13 17:10 | PC.NURSE ---
Per md luna okay to d/c due to vss and normal ekg.
[2020-12-13 17:57] LABS: Amphetamine Screen Urine Not Detected (Not Detect); Barbiturates, Urine POSITIVE (Not Detect); Benzodiazepines Screen Urine Not Detected (Not Detect); Cannabinoid Screen Urine POSITIVE (Not Detect); Cocaine Screen Urine Not Detected (Not Detect); Opiate Screen Urine Not Detected (Not Detect); Phencyclidine Screen Urine Not Detected (Not Detect)
== END 2020-12-13 17:31 | disposition home or self-care (01) ==
PROVIDERS: Emergency Provider Emergency Medicine
DX: I48.20 Chronic atrial fibrillation, unspecified (principal); E87.6 Hypokalemia; R00.0 Tachycardia, unspecified; F12.90 Cannabis use, unspecified, uncomplicated; Z90.49 Acquired absence of other specified parts of digestive tract; K21.9 Gastro-esophageal reflux disease without esophagitis; Z20.822 Contact with and (suspected) exposure to COVID-19; Z79.899 Other long term (current) drug therapy
CPT/HCPCS: 36415; 71045; 80048; 80076; 80307; 82077; 83735; 83880; 84443; 84484; 85025; 85610; 85730; 87635; 93005; 96365; 96366; 96374; 99285; 99291

== ENCOUNTER 2021-01-07 17:54 | Emergency (ER) | payer MEDICARE, MEDICAID, SELFPAY ==
[2021-01-07 18:36] VITALS: BP 156/91; PULSE 92; RESP 16; TEMP 36.6; O2SAT 98; BMI 31.0
[2021-01-07 19:25] VITALS: BP 151/106; PULSE 82; RESP 18; TEMP 36.5; O2SAT 98
[2021-01-07] MEDS: LORazepam 2 MG/ML VIAL 1 MG IVPUSH (19:48)
[2021-01-07] MEDS: Ketorolac Tromethamine 30 MG/ML VIAL IVPUSH (19:48)
[2021-01-07] MEDS: 0.9 % Sodium Chloride 1,000 ML 999 ML IVCONT (19:49)
[2021-01-07] MEDS: ondansetron HCL 4 MG/2 ML VIAL IVPUSH (19:49)
[2021-01-07 20:04] LABS: MANUAL DIFF FLAG NO
[2021-01-07 20:06] LABS: Basophils Absolute Auto 0.1 X10*3/uL (0.0-0.2); Basophils Percent Auto 0.7 % (0-2); Eosinophils Absolute Auto 0.4 X10*3/uL (0.0-0.4); Eosinophils Percent Auto 5.9 % (0-4); Hematocrit 41.1 % (42-52); Hemoglobin 14.1 g/dl (14.0-18.0); Imm Gran Abs Auto 0.01 X10*3/uL (0.00-0.03); Imm Gran Pct Auto 0.1 % (0.0-0.4); Lymphocytes Absolute Auto 2.2 X10*3/uL (1.2-4.9); Lymphocytes Percent Auto 31.6 % (20-40); Mean Corpuscular HGB Conc 34.3 g/dl (31.0-36.0); Mean Corpuscular Hemoglobin 28.1 pg (27.0-33.0); Mean Platelet Volume 8.8 fL (9.4-12.4); Monocytes Absolute Auto 0.6 X10*3/uL (0.1-1.2); Monocytes Percent Auto 9.2 % (2-11); Neutrophils Absolute Auto 3.6 X10*3/uL (2.0-8.3); Neutrophils Percent Auto 52.5 % (45-73); Platelet Count 274 X10*3/uL (160-400); Red Blood Count 5.01 X10*6/uL (4.60-5.80); Red Cell Distribution Width 12.8 % (11.0-16.0); White Blood Count 6.9 X10*3/uL (4.8-10.8)
[2021-01-07 20:35] LABS: Alanine Aminotransferase 30 U/L (0-40); Albumin Level 4.5 g/dL (3.5-5.0); Alkaline Phosphatase 161 U/L (39-117); Anion Gap 13 (12-20); Aspartate Amino Transferase 22 U/L (5-37); Bilirubin Total 0.5 mg/dL (0.0-1.0); Blood Urea Nitrogen 7 mg/dL (9-16); Calcium 9.4 mg/dL (8.4-10.2); Carbon Dioxide 27 mmol/L (22-29); Chloride 106 mmol/L (96-108); Creatinine Clr Calc Pharmacy 138.7; Estimated Glomerular Filt Rate > 60; Glucose Random 86 mg/dL (60-115); Potassium 3.6 mmol/L (3.3-5.1); Sodium 142 mmol/L (135-145); Total Protein 7.2 g/dL (6.5-8.0)
--- NOTE | 2021-01-07 20:46 | ED_ITS ---
HPI - Headache General Chief Complaint: Headache Stated Complaint: migraine Time Seen by Provider: 01/07/21 19:31 Source: patient Mode of arrival: ambulatory Limitations: no limitations History of Present Illness HPI Narrative: patient has history of chronic migraine headaches in follow-up with neurologist on Imitrex had received Botox injection in the past complaining of headache for last 3 weeks not getting better got worse for last 2 days nausea with vomiting photosensitive feels similar to previous headaches no fever no chills no neck pain Related Data Previous Rx's Medication Instructions Recorded tramadol 50 mg PO Q8H PRN #7 tab 04/22/20 cyclobenzaprine 10 mg PO TID PRN #14 tab 04/24/20 prednisone 40 mg PO DAILY 5 Days #10 tab 04/24/20 ibuprofen 400 mg PO Q6H PRN #20 tab 06/09/20 ondansetron 4 mg PO TID PRN 5 Days #10 tab 06/09/20 metoclopramide HCl [Reglan] 10 mg PO Q6H PRN #5 tab 06/26/20 ondansetron 4 mg PO Q8H PRN #20 tab 07/12/20 [id number]-rrblizxfznqrh-vfms 1 cap PO Q4-6H PRN #20 cap 08/04/20 [Fioricet] acetaminophen [Tylenol Extra 1,000 mg PO QID PRN #14 tab 08/13/20 Strength] albuterol sulfate 1 inh INHALATION QID PRN #8.5 g 08/13/20 azithromycin See Rx Instructions .ROUTE 08/13/20 .COMPLEX #6 tab cyclobenzaprine 10 mg PO TID PRN #10 tab 08/13/20 ibuprofen 800 mg PO Q8H PRN #14 tab 08/13/20 prednisone 40 mg PO DAILY 5 Days #10 tab 08/13/20 hydrocodone-acetaminophen 1 tab PO Q8H PRN 3 Days #7 tab 09/05/20 dkmuiwhhep-ljkoeqebvjycz-lusr 1 cap PO Q4-6H PRN #20 cap 10/27/20 [Fioricet] Allergies Allergy/AdvReac Type Severity Reaction Status Date / Time metoclopramide [From REGLAN] Allergy Unknown AGITATION Verified 01/07/21 19:25 prochlorperazine Allergy Unknown AGITATION Verified 01/07/21 19:25 [From COMPAZINE] diphenhydramine AdvReac Unknown AGITATION Verified 01/07/21 19:25 [From BENADRYL] Review of Systems Review of Systems: Yes all other systems are reviewed and are negative [facility] Past Medical History Medical History Afib Anxiety Depression GERD (gastroesophageal reflux disease) Kidney stone Migraine Pneumonia Surgical History Hx of appendectomy Hx of cholecystectomy Social History Social History Alcohol intake: current Alcohol intake frequency: holidays/special occasions only Patient Tobacco Use Status: Never used Tobacco Use of substances other than those prescribed or required for medical reasons: Yes Substance Use Type: Marijuana Advance Directives: Yes Advance Directives on File: Yes Advance Directives Date on File: 05/01/20 Physical Exam Vital Signs: Vital Signs: Last Vital Signs Temp 97.7 F 01/07/21 19:25 Pulse 79 01/07/21 21:27 Resp 18 01/07/21 21:27 BP 148/88 H 01/07/21 21:27 Pulse Ox 97 01/07/21 21:27 Body Mass Index 31.0 Appearance: Alert. Oriented X3. No acute distress. Eyes: PERRLA, No Nystagmus photosensitive ENT: Pharynx normal. Oral Mucosa moist no temporal artery tenderness Neck: Normal inspection. Neck supple. CVS: Normal heart rate and rhythm. Pulses normal. Respiratory: No respiratory distress. Equal air entry bilateral, no wheezing/rales/rhonchi Abdomen: Soft and nontender. Bowel sounds are present, no mass palpable, no CVA tenderness Skin: Skin warm and dry. Normal skin color. Normal skin turgor. Extremities: No lower extremity edema. No calf tenderness Neuro: Oriented X 3. No motor deficit. No sensory deficit.No cerebellar signs , cranial nerves II-XII intact MDM - Headache MDM Narrative Medical decision making narrative: patient with poor response to Ativan Zofran and Toradol. Responded to IV fluids Fioricet and morphine will discharge patient home advised to follow-up with his neurologist Lab Data Attestation: I reviewed the patient's lab results. Result diagrams: 01/07/21 19:35 01/07/21 19:35 Labs: Lab Results 01/07/21 01/07/21 Range/Units 19:35 19:35 WBC 6.9 (4.8-10.8) X10*3/uL RBC 5.01 (4.60-5.80) X10*6/uL Hgb 14.1 (14.0-18.0) g/dl Hct 41.1 L (42-52) % MCV 82.0 (80-98) fL MCH 28.1 (27.0-33.0) pg MCHC 34.3 (31.0-36.0) g/dl RDW 12.8 (11.0-16.0) % Plt Count 274 (160-400) X10*3/uL MPV 8.8 L (9.4-12.4) fL Immature Gran % (Auto) 0.1 (0.0-0.4) % Neut % (Auto) 52.5 (45-73) % Lymph % (Auto) 31.6 (20-40) % [place] % (Auto) 9.2 (2-11) % Eos % (Auto) 5.9 H (0-4) % Baso % (Auto) 0.7 (0-2) % Lymph # (Auto) 2.2 (1.2-4.9) X10*3/uL [place] # (Auto) 0.6 (0.1-1.2) X10*3/uL Eos # (Auto) 0.4 (0.0-0.4) X10*3/uL Baso # (Auto) 0.1 (0.0-0.2) X10*3/uL Abs Immat Gran (auto) 0.01 (0.00-0.03) X10*3/uL Absolute Neuts (auto) 3.6 (2.0-8.3) X10*3/uL Absolute Nucleated RBC 0.000 (0.0-0.012) X10*3/uL Nucleated RBC % (auto) 0.0 (0.0-0.2) /100WBC Sodium 142 (135-145) mmol/L Potassium 3.6 (3.3-5.1) mmol/L Chloride 106 (96-108) mmol/L Carbon Dioxide 27 (22-29) mmol/L Anion Gap 13 (12-20) BUN 7 L (9-16) mg/dL Creatinine 0.83 (0.5-1.4) mg/dL Estim Creat Clear Calc 138.7 Estimated GFR > 60 Random Glucose 86 (60-115) mg/dL Calcium 9.4 (8.4-10.2) mg/dL Total Bilirubin 0.5 (0.0-1.0) mg/dL AST 22 D (5-37) U/L ALT 30 (0-40) U/L Alkaline Phosphatase 161 H D (39-117) U/L Total Protein 7.2 (6.5-8.0) g/dL Albumin 4.5 (3.5-5.0) g/dL Discharge Plan Discharge Clinical Impression: Migraine Qualifiers: Migraine type: without aura Status migrainosus presence: without status migrainosus Intractability: not intractable Qualified Code(s): G43.009 - Migraine without aura, not intractable, without status migrainosus Patient Disposition: Home, Self-Care Instructions: Migraine Headache (ED) Additional Instructions: rest at home take medication as prescribed by pcp and follow-up with neurologist Prescriptions: No Action tramadol 50 mg tablet 50 mg PO Q8H PRN (Reason: pain) Qty: 7 RF: 0 cyclobenzaprine 10 mg tablet 10 mg PO TID PRN (Reason: muscle spasm) Qty: 14 RF: 0 prednisone 20 mg tablet 40 mg PO DAILY 5 Days Qty: 10 RF: 0 ondansetron 4 mg tablet,disintegrating 4 mg PO Q8H PRN (Reason: nausea and vomiting) Qty: 20 RF: 0 rnrzdcqdox-btyfvyvumzssd-xzxq [Fioricet] 50-300-40 mg capsule 1 cap PO Q4-6H PRN (Reason: pain) Qty: 20 RF: 0 cyclobenzaprine 10 mg tablet 10 mg PO TID PRN (Reason: muscle spasm) Qty: 10 RF: 0 azithromycin 250 mg tablet See Rx Instructions .ROUTE .COMPLEX Qty: 6 RF: 0 ibuprofen 800 mg tablet 800 mg PO Q8H PRN (Reason: pain) Qty: 14 RF: 0 prednisone 20 mg tablet 40 mg PO DAILY 5 Days Qty: 10 RF: 0 acetaminophen [Tylenol Extra Strength] 500 mg tablet 1,000 mg PO QID PRN (Reason: fever or pain) Qty: 14 RF: 0 albuterol sulfate 90 mcg/actuation HFA aerosol inhaler 1 inh inhalation QID PRN (Reason: shortness of breath or wheezing) Qty: 8.5 RF: 0 hydrocodone-acetaminophen 5-325 mg tablet 1 tab PO Q8H PRN (Reason: pain, severe) 3 Days Qty: 7 RF: 0 tqxucmnafr-onmjhjvnzkknr-gkuh [Fioricet] 50-300-40 mg capsule 1 cap PO Q4-6H PRN (Reason: pain) Qty: 20 RF: 0 ibuprofen 400 mg tablet 400 mg PO Q6H PRN (Reason: pain) Qty: 20 RF: 0 ondansetron 4 mg tablet,disintegrating 4 mg PO TID PRN (Reason: nausea and vomiting) 5 Days Qty: 10 RF: 0 metoclopramide HCl [Reglan] 10 mg tablet 10 mg PO Q6H PRN (Reason: nausea and vomiting) Qty: 5 RF: 0 Interventions: ED Discharge Assessment Last Done: 01/07/21 21:29 Discharge Date/Time: 01/07/21 21:32
[2021-01-07 21:07] VITALS: BP 150/87; PULSE 74; RESP 17; O2SAT 98
[2021-01-07] MEDS: Morphine Sulfate 4 MG/ML CARTRIDGE IVPUSH (21:08)
[2021-01-07] MEDS: Butalb/Acetamin/Caff 50/325/40 TABLET 1 TAB PO (21:08)
[2021-01-07 21:27] VITALS: BP 148/88; PULSE 79; RESP 18; O2SAT 97
== END 2021-01-07 21:32 | disposition home or self-care (01) ==
PROVIDERS: Emergency Provider Internal Medicine
DX: G43.009 Migraine without aura, not intractable, without status migrainosus (principal); I48.91 Unspecified atrial fibrillation; F12.90 Cannabis use, unspecified, uncomplicated; Z79.899 Other long term (current) drug therapy
CPT/HCPCS: 36415; 80053; 85025; 96361; 96374; 96375; 99284; 99285; J1885; J2060; J2270; J2405

== ENCOUNTER 2021-01-11 14:32 | Emergency (ER) | payer MEDICARE, MEDICAID, SELFPAY ==
[2021-01-11 14:59] VITALS: BP 144/95; PULSE 84; RESP 18; TEMP 36.7; O2SAT 97; BMI 31.0
[2021-01-11] MEDS: Acetaminophen 325 MG TABLET 650 MG PO (15:05)
--- NOTE | 2021-01-11 15:35 | ED.BACK ---
HPI - Back Pain/Injury General Chief Complaint: Back Pain/Injury Stated Complaint: low back pain Time Seen by Provider: 01/11/21 15:35 History of Present Illness HPI Narrative: patient complains of left-sided low back pain worse with movement for the last 3 days after E arched his back distraction felt a sharp popping pain and pain shooting to his leg Pain radiates to the gluteal area, there is no numbness weakness or tingling, no changes to bowel or bladder no dysuria no frequency no incontinence Related Data Previous Rx's Medication Instructions Recorded tramadol 50 mg PO Q8H PRN #7 tab 04/22/20 cyclobenzaprine 10 mg PO TID PRN #14 tab 04/24/20 prednisone 40 mg PO DAILY 5 Days #10 tab 04/24/20 ibuprofen 400 mg PO Q6H PRN #20 tab 06/09/20 ondansetron 4 mg PO TID PRN 5 Days #10 tab 06/09/20 metoclopramide HCl [Reglan] 10 mg PO Q6H PRN #5 tab 06/26/20 ondansetron 4 mg PO Q8H PRN #20 tab 07/12/20 ziulsxdvoh-ofppplvmepqwh-itrs 1 cap PO Q4-6H PRN #20 cap 08/04/20 [Fioricet] acetaminophen [Tylenol Extra 1,000 mg PO QID PRN #14 tab 08/13/20 Strength] albuterol sulfate 1 inh INHALATION QID PRN #8.5 g 08/13/20 azithromycin See Rx Instructions .ROUTE 08/13/20 .COMPLEX #6 tab cyclobenzaprine 10 mg PO TID PRN #10 tab 08/13/20 ibuprofen 800 mg PO Q8H PRN #14 tab 08/13/20 prednisone 40 mg PO DAILY 5 Days #10 tab 08/13/20 hydrocodone-acetaminophen 1 tab PO Q8H PRN 3 Days #7 tab 09/05/20 gayyptaqim-lgzkixauwdwox-mmnj 1 cap PO Q4-6H PRN #20 cap 10/27/20 [Fioricet] oxycodone 5 mg PO TID PRN #7 tab 01/11/21 Allergies Allergy/AdvReac Type Severity Reaction Status Date / Time metoclopramide [From REGLAN] Allergy Unknown AGITATION Verified 06/27/21 19:25 prochlorperazine Allergy Unknown AGITATION Verified 01/07/21 19:25 [From COMPAZINE] diphenhydramine AdvReac Unknown AGITATION Verified 01/07/21 19:25 [From BENADRYL] Review of Systems Review of Systems: review of systems is positive for back pain Negatives are no fever no chills no dizziness no weakness no fainting no feeling faint no neck pain no chest pain no abdominal pain no numbness no weakness no tingling no incontinence no dysuria no changes to bowel or bladder no frequency of urination no skin rash Yes all other systems are reviewed and are negative [facility] Past Medical History Source: nursing notes reviewed Medical History Afib Anxiety Depression GERD (gastroesophageal reflux disease) Kidney stone Migraine Pneumonia Surgical History Hx of appendectomy Hx of cholecystectomy Social History Social History Alcohol intake: current Alcohol intake frequency: holidays/special occasions only Patient Tobacco Use Status: Never used Tobacco Substance Use Type: Marijuana Advance Directives: Yes Advance Directives on File: Yes Advance Directives Date on File: 05/01/20 Physical Exam Vital Signs: Vital Signs: Last Vital Signs Temp 98.1 F 01/11/21 14:59 Pulse 84 01/11/21 14:59 Resp 18 01/11/21 14:59 BP 144/95 H 01/11/21 14:59 Pulse Ox 97 01/11/21 14:59 Body Mass Index 31.0 general appearance no distress The head is normocephalic atraumatic Neck is supple Respiratory no acute distress The back and left lower lumbar tenderness, no focal bony tenderness no CVA tenderness, pain is easily reproduced with movement, the skin is normal no rash no wound no redness no sign of infection of the skin Extremities is full range of motion x4 Neuro motor is 5/5 x4, sensation is intact and symmetrical and gait is normal Course Course Course Narrative: patient was seen in urgent care for the same 2 days ago had a negative x-ray and was given script for Flexeril and Motrin and pain continues with no neurologic deficit no changes to bowel or bladder Discharge Plan Discharge Clinical Impression: Back pain Patient Disposition: Home, Self-Care Additional Instructions: follow with primary doctor Return any concerns Prescriptions: New oxycodone 5 mg tablet 5 mg PO TID PRN (Reason: pain) Qty: 7 RF: 0 No Action tramadol 50 mg tablet 50 mg PO Q8H PRN (Reason: pain) Qty: 7 RF: 0 cyclobenzaprine 10 mg tablet 10 mg PO TID PRN (Reason: muscle spasm) Qty: 14 RF: 0 prednisone 20 mg tablet 40 mg PO DAILY 5 Days Qty: 10 RF: 0 ondansetron 4 mg tablet,disintegrating 4 mg PO Q8H PRN (Reason: nausea and vomiting) Qty: 20 RF: 0 oxlqiszbqb-jzevxctbjaykt-ndde [Fioricet] 50-300-40 mg capsule 1 cap PO Q4-6H PRN (Reason: pain) Qty: 20 RF: 0 cyclobenzaprine 10 mg tablet 10 mg PO TID PRN (Reason: muscle spasm) Qty: 10 RF: 0 azithromycin 250 mg tablet See Rx Instructions .ROUTE .COMPLEX Qty: 6 RF: 0 ibuprofen 800 mg tablet 800 mg PO Q8H PRN (Reason: pain) Qty: 14 RF: 0 prednisone 20 mg tablet 40 mg PO DAILY 5 Days Qty: 10 RF: 0 acetaminophen [Tylenol Extra Strength] 500 mg tablet 1,000 mg PO QID PRN (Reason: fever or pain) Qty: 14 RF: 0 albuterol sulfate 90 mcg/actuation HFA aerosol inhaler 1 inh inhalation QID PRN (Reason: shortness of breath or wheezing) Qty: 8.5 RF: 0 hydrocodone-acetaminophen 5-325 mg tablet 1 tab PO Q8H PRN (Reason: pain, severe) 3 Days Qty: 7 RF: 0 wqnylptanr-xcddpdksjsnra-jaat [Fioricet] 50-300-40 mg capsule 1 cap PO Q4-6H PRN (Reason: pain) Qty: 20 RF: 0 ibuprofen 400 mg tablet 400 mg PO Q6H PRN (Reason: pain) Qty: 20 RF: 0 ondansetron 4 mg tablet,disintegrating 4 mg PO TID PRN (Reason: nausea and vomiting) 5 Days Qty: 10 RF: 0 metoclopramide HCl [Reglan] 10 mg tablet 10 mg PO Q6H PRN (Reason: nausea and vomiting) Qty: 5 RF: 0
[2021-01-11] MEDS: Ketorolac Tromethamine 30 MG/ML VIAL IM (15:52)
== END 2021-01-11 16:01 | disposition home or self-care (01) ==
PROVIDERS: Emergency Provider Emergency Medicine Emergency Medical Services
DX: M54.5 Low back pain (principal)
CPT/HCPCS: 96372; 99283; 99284; J1885

== ENCOUNTER 2021-02-01 14:11 | Emergency (ER) | payer MEDICARE, MEDICAID, SELFPAY ==
--- NOTE | ~2021-02-01 | CT_ITS ---
EXAMINATION: CT ANGIOGRAM OF THE CHEST WITH AND WITHOUT CONTRAST (CT PULMONARY ANGIOGRAM FOR PE) CLINICAL INFORMATION: Reason for Exam chest pain elevated ddimer eval PE COMPARISON: CT angiogram chest 04/22/2020 TECHNIQUE: Prior to contrast administration, noncontrast localization images were obtained. Subsequently, multidetector volumetric imaging was performed from the thoracic inlet to below the diaphragms following the administration of 71 mL Omnipaque 350 intravenous contrast. No contrast reaction reported Sagittal, coronal, and MIP oblique sagittal reformatted images were obtained on the CT workstation, uploaded to PACS, and reviewed. This CT examination was performed using dose optimization techniques as appropriate, variously including the following: *Automated exposure control *Adjustment of mA and/or kV according to patient size (this includes techniques or standardized protocols for targeted exams where dose is matched to indication/reason for exam; i.e. extremities or head) *Use of iterative reconstruction technique Total exam dose-length product 428 mGy-cm FINDINGS: QUALITY OF STUDY/CONTRAST BOLUS: Suboptimal. The aorta as well as the pulmonary veins are opacified better than the pulmonary arteries. PULMONARY ARTERIES: No central or large segmental pulmonary emboli. THORACIC AORTA: No aneurysm or dissection. LUNG: Prominent groundglass changes are noted in the right upper lobe and right lower lobe. Left lung is spared with the exception of some minimal changes in the medial basilar segment of the left lower lobe. These are new when compared with the visualized portions of the lung on the abdominal CT from 09/05/[address] pulmonary angiogram from 04/22/2020. There is a prominent rounded mass present in the infrahilar region just below the inferior right pulmonary vein which measures fat density in the merely represent mediastinal fat. PLEURA: No pleural effusion or pneumothorax. MEDIASTINUM: Normal heart size. No pericardial effusion. No hilar or mediastinal lymphadenopathy. No evidence of septal bowing or right heart strain. CHEST WALL/AXILLA: No axillary or internal mammary lymphadenopathy. OSSEOUS STRUCTURES: No acute or suspicious osseous abnormality. UPPER ABDOMEN: Diverticular changes present in the colon without diverticulitis. No reflux of contrast into the hepatic veins to suggest elevated right heart pressures. CT/CT angio chest PE protocol IMPRESSION: 1. Limited exam without gross evidence of pulmonary emboli. 2. Prominent groundglass changes noted, predominantly in the right lung, when compared to prior studies-differential diagnosis would include infectious (COVID, for example) and inflammatory conditions along with edema and hypersensitivity pneumonitis. VTE: negative but very limited because of poor bolus
--- NOTE | ~2021-02-01 | XR_ITS ---
EXAMINATION: XR CHEST CLINICAL INFORMATION: Cough/respiratory symptoms COMPARISON: Chest 12/13/2020 TECHNIQUE: 2 views of the chest were obtained. FINDINGS: The lungs are hyperinflated but clear of acute process. Heart size and pulmonary vascularity is normal. No gross bony abnormality seen. XR/XR chest 2V IMPRESSION: Hyperinflated lungs with no acute process seen. No major change from 12/13/2020.
[2021-02-01 14:54] VITALS: BP 145/86; PULSE 98; RESP 18; TEMP 36.8; O2SAT 96; BMI 29.5
--- NOTE | 2021-02-01 16:40 | ED_ITS ---
HPI - General Adult General Chief complaint: General Medical Stated complaint: vomiting - fever Time Seen by Provider: 02/01/21 16:29 Source: patient Mode of arrival: ambulatory Limitations: no limitations History of Present Illness MD complaint: chest pain Onset (ago): hour(s) (this AM upon waking 6 hours) Location: chest Radiation: non-radiation Severity: moderate Quality: stabbing Pain Consistency: intermittent Relieving factors: none Exacerbating factors: other (coughing, movement, deep breaths) Associated symptoms: chest pain and other (had an episode of n/v yesterday with chills today noted that he had chest pain when he woke up worried he J+J vaccine in November) Treatments prior to arrival: none Related Data Previous Rx's Medication Instructions Recorded tramadol 50 mg PO Q8H PRN #7 tab 04/22/20 cyclobenzaprine 10 mg PO TID PRN #14 tab 04/24/20 prednisone 40 mg PO DAILY 5 Days #10 tab 04/24/20 ibuprofen 400 mg PO Q6H PRN #20 tab 06/09/20 ondansetron 4 mg PO TID PRN 5 Days #10 tab 06/09/20 metoclopramide HCl [Reglan] 10 mg PO Q6H PRN #5 tab 06/26/20 ondansetron 4 mg PO Q8H PRN #20 tab 07/12/20 mnzmmxsxrj-hadpkzdhoddth-rxtn 1 cap PO Q4-6H PRN #20 cap 08/04/20 [Fioricet] acetaminophen [Tylenol Extra 1,000 mg PO QID PRN #14 tab 08/13/20 Strength] albuterol sulfate 1 inh INHALATION QID PRN #8.5 g 08/13/20 azithromycin See Rx Instructions .ROUTE 08/13/20 .COMPLEX #6 tab cyclobenzaprine 10 mg PO TID PRN #10 tab 08/13/20 ibuprofen 800 mg PO Q8H PRN #14 tab 08/13/20 prednisone 40 mg PO DAILY 5 Days #10 tab 08/13/20 hydrocodone-acetaminophen 1 tab PO Q8H PRN 3 Days #7 tab 09/05/20 boqwqkgtpz-skntrgulihosw-ezxy 1 cap PO Q4-6H PRN #20 cap 10/27/20 [Fioricet] oxycodone 5 mg PO TID PRN #7 tab 01/11/21 azithromycin 250 mg PO DAILY 4 Days #4 tab 02/01/21 dexamethasone 6 mg PO DAILY 6 Days #6 tab 02/01/21 Allergies Allergy/AdvReac Type Severity Reaction Status Date / Time metoclopramide [From REGLAN] Allergy Intermediate AGITATION Verified 02/01/21 14:54 prochlorperazine Allergy Intermediate AGITATION Verified 02/01/21 14:54 [From COMPAZINE] diphenhydramine AdvReac Intermediate AGITATION Verified 02/01/21 14:54 [From BENADRYL] Review of Systems Review of Systems: Constitutional : No Weight loss, No Fever, pos Chills ENT/Mouth : No sore throat, No Rhinorrhea Eyes: No Eye Pain, No Swelling Cardiovascular : pos Chest Pain, no SOB, no Dyspnea on Exertion, No Orthopnea, No Edema, No Palpitations Respiratory : No Cough, No Sputum Gastrointestinal : pos Nausea, No Vomiting, No Diarrhea, No abdominal Pain, No Hematochezia, No Melena Genitourinary : No Dysuria, No Urinary Frequency Musculoskeletal : No joint pain, No Myalgias, No Joint Swelling Skin : No Skin Lesions, No rash Neuro : No Weakness, No Numbness, No Dizziness, No Headache Psych : No Anxiety/Panic, No Depression Heme/Lymph: No Bruising, No Lymphadenopathy Endocrine : No Polyuria, No Polydipsia All other systems reviewed and are negative [facility] Past Medical History Attestation statement: The following information was validated with the patient. Medical History Afib Anxiety Depression GERD (gastroesophageal reflux disease) Kidney stone Migraine Pneumonia Surgical History Hx of appendectomy Hx of cholecystectomy Social History Social History Alcohol intake: current Alcohol intake frequency: holidays/special occasions only Patient Tobacco Use Status: Never used Tobacco Substance Use Type: Marijuana Advance Directives: Yes Advance Directives on File: Yes Advance Directives Date on File: 05/01/20 Physical Exam Vital Signs: Vital Signs: Last Vital Signs Temp 98.2 F 02/01/21 14:54 Pulse 93 02/01/21 19:57 Resp 18 02/01/21 19:57 BP 154/98 H 02/01/21 19:57 Pulse Ox 98 02/01/21 19:57 Body Mass Index 29.5 Appearance: Alert. Oriented X3. No acute distress. Eyes: Pupils equal, round and reactive to light. ENT: Pharynx normal. Neck: Normal inspection. Neck supple. CVS: Normal heart rate and rhythm. Pulses normal. Respiratory: No respiratory distress. Breath sounds normal. Abdomen: Soft and nontender. Skin: Skin warm and dry. Normal skin color. Normal skin turgor. Extremities: No lower extremity edema. No calf ttp Neuro: Oriented X 3. No motor deficit. No sensory deficit. Course Course Course Narrative: ddimer elevated PE study ordered no PE but GGO negative COVID - will DC home on dexamethasone and azithromycin 98% on RA Medical Decision Making MDM Narrative Medical decision making narrative: 35 yo male with hx of migraines, GERD comes in with pleuritic chest pain after vomiting yesterday patient received J+J 6 weeks ago at this time will need EKG, CXR, troponin x 1, ddimer - has had 19 visits in 2 years to the ED he states his anxiety is well controlled, dispo per results and findings. Lab Data Result diagrams: 02/01/21 17:02 02/01/21 17:02 Labs: Lab Results 02/01/21 02/01/21 02/01/21 Range/Units 17:02 17:02 17:02 WBC 11.4 H (4.8-10.8) X10*3/uL RBC 4.94 (4.60-5.80) X10*6/uL Hgb 13.8 L (14.0-18.0) g/dl Hct 41.3 L (42-52) % MCV 83.6 (80-98) fL MCH 27.9 (27.0-33.0) pg MCHC 33.4 (31.0-36.0) g/dl RDW 13.1 (11.0-16.0) % Plt Count 263 (160-400) X10*3/uL MPV 8.2 L (9.4-12.4) fL Immature Gran % (Auto) 0.4 (0.0-0.4) % Neut % (Auto) 71.4 (45-73) % Lymph % (Auto) 20.0 (20-40) % Archer % (Auto) 6.0 (2-11) % Eos % (Auto) 1.9 (0-4) % Baso % (Auto) 0.3 (0-2) % Lymph # (Auto) 2.3 (1.2-4.9) X10*3/uL Archer # (Auto) 0.7 (0.1-1.2) X10*3/uL Eos # (Auto) 0.2 (0.0-0.4) X10*3/uL Baso # (Auto) 0.0 (0.0-0.2) X10*3/uL Abs Immat Gran (auto) 0.05 H (0.00-0.03) X10*3/uL Absolute Neuts (auto) 8.2 (2.0-8.3) X10*3/uL Absolute Nucleated RBC 0.000 (0.0-0.012) X10*3/uL Nucleated RBC % (auto) 0.0 (0.0-0.2) /100WBC D-Dimer NG/ML Sodium 141 (135-145) mmol/L Potassium 3.5 (3.3-5.1) mmol/L Chloride 105 (96-108) mmol/L Carbon Dioxide 27 (22-29) mmol/L Anion Gap 13 (12-20) BUN 8 L (9-16) mg/dL Creatinine 0.99 (0.5-1.4) mg/dL Estim Creat Clear Calc 113.7 Estimated GFR > 60 Random Glucose 99 (60-115) mg/dL Calcium 9.3 (8.4-10.2) mg/dL Total Bilirubin 0.8 (0.0-1.0) mg/dL Direct Bilirubin 0.3 (0.0-0.5) mg/dL AST 16 (5-37) U/L ALT 23 (0-40) U/L Alkaline Phosphatase 138 H (39-117) U/L Troponin I High Sens (<3.5-35.0) ng/L Total Protein 7.3 (6.5-8.0) g/dL Albumin 4.5 (3.5-5.0) g/dL Lipase 8 (8-78) U/L Urine Color Urine Appearance Urine pH (5.0-8.0) Ur Specific [place] (1.005-1.025) Urine Protein (NEG-TRACE) MG/DL Urine Glucose (UA) (NEG) MG/DL Urine Ketones (NEG) MG/DL Urine Blood (NEG) Urine Nitrite (NEG) Ur Leukocyte Esterase (NEG) Urine RBC (0) /HPF Urine WBC (0-4) /HPF Ur Squamous Epith Cells /LPF Urine Bacteria /LPF Urine Mucus /LPF COVID-19 (SAM) Negative (Negative) COVID-19 Clin Com See Note 02/01/21 02/01/21 02/01/21 Range/Units 17:02 17:02 19:02 WBC (4.8-10.8) X10*3/uL RBC (4.60-5.80) X10*6/uL Hgb (14.0-18.0) g/dl Hct (42-52) % MCV (80-98) fL MCH (27.0-33.0) pg MCHC (31.0-36.0) g/dl RDW (11.0-16.0) % Plt Count (160-400) X10*3/uL MPV (9.4-12.4) fL Immature Gran % (Auto) (0.0-0.4) % Neut % (Auto) (45-73) % Lymph % (Auto) (20-40) % Archer % (Auto) (2-11) % Eos % (Auto) (0-4) % Baso % (Auto) (0-2) % Lymph # (Auto) (1.2-4.9) X10*3/uL Archer # (Auto) (0.1-1.2) X10*3/uL Eos # (Auto) (0.0-0.4) X10*3/uL Baso # (Auto) (0.0-0.2) X10*3/uL Abs Immat Gran (auto) (0.00-0.03) X10*3/uL Absolute Neuts (auto) (2.0-8.3) X10*3/uL Absolute Nucleated RBC (0.0-0.012) X10*3/uL Nucleated RBC % (auto) (0.0-0.2) /100WBC D-Dimer 464 NG/ML Sodium (135-145) mmol/L Potassium (3.3-5.1) mmol/L Chloride (96-108) mmol/L Carbon Dioxide (22-29) mmol/L Anion Gap (12-20) BUN (9-16) mg/dL Creatinine (0.5-1.4) mg/dL Estim Creat Clear Calc Estimated GFR Random Glucose (60-115) mg/dL Calcium (8.4-10.2) mg/dL Total Bilirubin (0.0-1.0) mg/dL Direct Bilirubin (0.0-0.5) mg/dL AST (5-37) U/L ALT (0-40) U/L Alkaline Phosphatase (39-117) U/L Troponin I High Sens < 3.5 D (<3.5-35.0) ng/L Total Protein (6.5-8.0) g/dL Albumin (3.5-5.0) g/dL Lipase (8-78) U/L Urine Color DIMA Urine Appearance HAZY Urine pH 6.0 (5.0-8.0) Ur Specific [place] 1.025 (1.005-1.025) Urine Protein TRACE (NEG-TRACE) MG/DL Urine Glucose (UA) NEG (NEG) MG/DL Urine Ketones NEG (NEG) MG/DL Urine Blood 2+ H (NEG) Urine Nitrite NEG (NEG) Ur Leukocyte Esterase NEG (NEG) Urine RBC 10-14 H (0) /HPF Urine WBC 0-2 (0-4) /HPF Ur Squamous Epith Cells NONE /LPF Urine Bacteria TRACE /LPF Urine Mucus 1+ /LPF COVID-19 (SAM) (Negative) COVID-19 Clin Com ECG Data Attestation: I personally reviewed and interpreted this ECG as follows: Interpretation: Rate: 84 Rhythm: NSR [place]: normal Normal P waves. Normal TERI. Normal QRS complex. ST T wave : normal no MARSHAL qTC: normal prior studies: no acute ischemia The study has been interpreted contemporaneously by me. . Discharge Plan Discharge Clinical Impression: Pneumonitis Patient Disposition: Home, Self-Care Instructions: Pneumonitis (ED), COVID-19 (Coronavirus Disease 2019) (ED) Additional Instructions: return to ED for any worsening symptoms or concerns repeat COVID swab in 3 days quarantine x 10 days Prescriptions: New dexamethasone 6 mg tablet 6 mg PO DAILY 6 Days Qty: 6 RF: 0 azithromycin 250 mg tablet 250 mg PO DAILY 4 Days Qty: 4 RF: 0 No Action tramadol 50 mg tablet 50 mg PO Q8H PRN (Reason: pain) Qty: 7 RF: 0 cyclobenzaprine 10 mg tablet 10 mg PO TID PRN (Reason: muscle spasm) Qty: 14 RF: 0 prednisone 20 mg tablet 40 mg PO DAILY 5 Days Qty: 10 RF: 0 ondansetron 4 mg tablet,disintegrating 4 mg PO Q8H PRN (Reason: nausea and vomiting) Qty: 20 RF: 0 qxhbfqtsqx-mgkylurclmmmg-xaif [Fioricet] 50-300-40 mg capsule 1 cap PO Q4-6H PRN (Reason: pain) Qty: 20 RF: 0 cyclobenzaprine 10 mg tablet 10 mg PO TID PRN (Reason: muscle spasm) Qty: 10 RF: 0 azithromycin 250 mg tablet See Rx Instructions .ROUTE .COMPLEX Qty: 6 RF: 0 ibuprofen 800 mg tablet 800 mg PO Q8H PRN (Reason: pain) Qty: 14 RF: 0 prednisone 20 mg tablet 40 mg PO DAILY 5 Days Qty: 10 RF: 0 acetaminophen [Tylenol Extra Strength] 500 mg tablet 1,000 mg PO QID PRN (Reason: fever or pain) Qty: 14 RF: 0 albuterol sulfate 90 mcg/actuation HFA aerosol inhaler 1 inh inhalation QID PRN (Reason: shortness of breath or wheezing) Qty: 8.5 RF: 0 hydrocodone-acetaminophen 5-325 mg tablet 1 tab PO Q8H PRN (Reason: pain, severe) 3 Days Qty: 7 RF: 0 ksngarfegh-xuowlduizzwgf-yyml [Fioricet] 50-300-40 mg capsule 1 cap PO Q4-6H PRN (Reason: pain) Qty: 20 RF: 0 oxycodone 5 mg tablet 5 mg PO TID PRN (Reason: pain) Qty: 7 RF: 0 ibuprofen 400 mg tablet 400 mg PO Q6H PRN (Reason: pain) Qty: 20 RF: 0 ondansetron 4 mg tablet,disintegrating 4 mg PO TID PRN (Reason: nausea and vomiting) 5 Days Qty: 10 RF: 0 metoclopramide HCl [Reglan] 10 mg tablet 10 mg PO Q6H PRN (Reason: nausea and vomiting) Qty: 5 RF: 0 Stand Alone Forms: Work/School Release
--- NOTE | 2021-02-01 16:44 | ECG_ITS ---
Test Reason : CHEST PAIN Blood Pressure : / mmHG Vent. Rate : 084 BPM Atrial Rate : 084 BPM P-R Int : 142 ms QRS Dur : 116 ms QT Int : 400 ms P-R-T Axes : 057 060 037 degrees QTc Int : 472 ms Normal sinus rhythm Normal ECG When compared with ECG of 13-DEC-2020 16:46, No significant change was found Referred By: Keli Morton Electronically Signed By:LEVI MALDONADO MD
[2021-02-01 17:07] LABS: MANUAL DIFF FLAG NO
[2021-02-01 17:10] LABS: Basophils Percent Auto 0.3 % (0-2); Eosinophils Absolute Auto 0.2 X10*3/uL (0.0-0.4); Eosinophils Percent Auto 1.9 % (0-4); Hematocrit 41.3 % (42-52); Hemoglobin 13.8 g/dl (14.0-18.0); Imm Gran Abs Auto 0.05 X10*3/uL (0.00-0.03); Imm Gran Pct Auto 0.4 % (0.0-0.4); Lymphocytes Absolute Auto 2.3 X10*3/uL (1.2-4.9); Mean Corpuscular HGB Conc 33.4 g/dl (31.0-36.0); Mean Corpuscular Hemoglobin 27.9 pg (27.0-33.0); Mean Corpuscular Volume 83.6 fL (80-98); Mean Platelet Volume 8.2 fL (9.4-12.4); Monocytes Absolute Auto 0.7 X10*3/uL (0.1-1.2); Neutrophils Absolute Auto 8.2 X10*3/uL (2.0-8.3); Neutrophils Percent Auto 71.4 % (45-73); Platelet Count 263 X10*3/uL (160-400); Red Blood Count 4.94 X10*6/uL (4.60-5.80); Red Cell Distribution Width 13.1 % (11.0-16.0); White Blood Count 11.4 X10*3/uL (4.8-10.8)
[2021-02-01 17:14] LABS: Glucose Urine UA NEG (NEG); Leukocyte Esterase Urine NEG (NEG); Nitrite Urine NEG (NEG); Specific Gravity - Urine 1.025 (1.005-1.025); Urine Blood 2+ (NEG); Urine Ketones NEG (NEG); Urine Protein TRACE MG/DL (NEG-TRACE)
[2021-02-01 17:20] LABS: Appearance Urine HAZY; Color Urine AMBER
[2021-02-01 17:26] LABS: COVID-19 Test Negative (Negative)
[2021-02-01 17:42] LABS: Alanine Aminotransferase 23 U/L (0-40); Albumin Level 4.5 g/dL (3.5-5.0); Alkaline Phosphatase 138 U/L (39-117); Anion Gap 13 (12-20); Aspartate Amino Transferase 16 U/L (5-37); Bacteria Urine TRACE /LPF; Bilirubin Direct 0.3 mg/dL (0.0-0.5); Bilirubin Total 0.8 mg/dL (0.0-1.0); Blood Urea Nitrogen 8 mg/dL (9-16); Calcium 9.3 mg/dL (8.4-10.2); Carbon Dioxide 27 mmol/L (22-29); Chloride 105 mmol/L (96-108); Creatinine Clr Calc Pharmacy 113.7; Estimated Glomerular Filt Rate > 60; Glucose Random 99 mg/dL (60-115); Lipase 8 U/L (8-78); Potassium 3.5 mmol/L (3.3-5.1); Sodium 141 mmol/L (135-145); Total Protein 7.3 g/dL (6.5-8.0); WBC Urine 0-2 /HPF (0-4)
[2021-02-01 17:43] LABS: Mucus Urine 1+ /LPF
[2021-02-01 17:48] LABS: Troponin-I High Sensitivity < 3.5 ng/L (<3.5-35.0)
[2021-02-01 19:16] LABS: D Dimer 464 NG/ML
[2021-02-01] MEDS: iohexoL 350 MG/ML 100 ML INFUS..BTL IV (19:55)
[2021-02-01 19:57] VITALS: BP 154/98; PULSE 93; RESP 18; O2SAT 98
[2021-02-01] MEDS: Azithromycin 500 MG TABLET PO (21:24)
[2021-02-01] MEDS: dexAMETHasone 6 MG TABLET PO (21:24)
== END 2021-02-01 21:47 | disposition home or self-care (01) ==
PROVIDERS: Emergency Provider Emergency Medicine
DX: J18.9 Pneumonia, unspecified organism (principal); Z20.822 Contact with and (suspected) exposure to COVID-19; R07.9 Chest pain, unspecified; R68.83 Chills (without fever); I48.91 Unspecified atrial fibrillation; F12.90 Cannabis use, unspecified, uncomplicated
CPT/HCPCS: 36415; 71046; 71275; 80048; 80076; 81001; 83690; 84484; 85025; 85379; 87635; 93005; 99284; J8540; Q9967

== ENCOUNTER 2021-02-14 14:07 | Emergency (ER) | payer MEDICARE, MEDICAID, SELFPAY ==
--- NOTE | ~2021-02-14 | CT_ITS ---
EXAMINATION: CT ABDOMEN AND PELVIS WITH CONTRAST CLINICAL INFORMATION: Left sided abdominal pain/back pain COMPARISON: CT abdomen and pelvis 09/05/2020 TECHNIQUE: Multidetector volumetric images were obtained from the superior aspect of the liver through the pubic symphysis following administration 85 mL of Omnipaque 350 intravenous contrast. Sagittal and coronal reformatted images were obtained on the technologist's workstation. Oral contrast: No This CT examination was performed using dose optimization techniques as appropriate, variously including the following: *Automated exposure control *Adjustment of mA and/or kV according to patient size (this includes techniques or standardized protocols for targeted exams where dose is matched to indication/reason for exam; i.e. extremities or head) *Use of iterative reconstruction technique DLP: 699 mGy-cm FINDINGS: LUNG BASES: The visualized lung bases are unremarkable. LIVER, GALLBLADDER, AND BILIARY TREE: The liver is normal in size, shape, and attenuation. No focal hepatic lesion or biliary ductal dilatation is present. Status post cholecystectomy. PANCREAS: Unremarkable. SPLEEN: Unremarkable. ADRENAL GLANDS: Unremarkable. KIDNEYS AND URETERS: 2 mm nonobstructing calculus in the lower pole of the right kidney. Subcentimeter hypodensities in the bilateral kidneys are too small to characterize but statistically likely represent small cysts The kidneys are normal in size, shape, and attenuation. No hydronephrosis, hydroureter, or calculi seen. No perinephric stranding. BLADDER: No bladder calculi. GASTROINTESTINAL TRACT: No bowel obstruction. A few scattered colonic diverticuli without diverticulitis. Appendix appears to be surgically absent. ABDOMINAL WALL: No significant hernia is appreciated. LYMPH NODES: Normal. VASCULAR: Unremarkable. PELVIC VISCERA: The prostate and seminal vesicles are unremarkable. OSSEOUS STRUCTURES: Unremarkable. CT/CT abdomen pelvis w con IMPRESSION: No CT abnormality to explain the patient's left lower quadrant/back pain. 2 mm calculus in the right kidney. A few scattered colonic diverticuli without diverticulitis.
[2021-02-14 14:26] VITALS: BP 136/96; PULSE 97; RESP 17; TEMP 36.5; O2SAT 97; BMI 32.5
[2021-02-14 16:46] LABS: MANUAL DIFF FLAG NO
[2021-02-14 16:52] LABS: Basophils Percent Auto 0.2 % (0-2); Eosinophils Absolute Auto 0.2 X10*3/uL (0.0-0.4); Eosinophils Percent Auto 1.6 % (0-4); Hematocrit 43.2 % (42-52); Hemoglobin 14.2 g/dl (14.0-18.0); Imm Gran Abs Auto 0.04 X10*3/uL (0.00-0.03); Imm Gran Pct Auto 0.4 % (0.0-0.4); Lymphocytes Absolute Auto 1.8 X10*3/uL (1.2-4.9); Lymphocytes Percent Auto 17.9 % (20-40); Mean Corpuscular HGB Conc 32.9 g/dl (31.0-36.0); Mean Corpuscular Hemoglobin 27.4 pg (27.0-33.0); Mean Corpuscular Volume 83.2 fL (80-98); Mean Platelet Volume 8.2 fL (9.4-12.4); Monocytes Percent Auto 10.3 % (2-11); Neutrophils Absolute Auto 6.8 X10*3/uL (2.0-8.3); Neutrophils Percent Auto 69.6 % (45-73); Platelet Count 272 X10*3/uL (160-400); Red Blood Count 5.19 X10*6/uL (4.60-5.80); Red Cell Distribution Width 13.1 % (11.0-16.0); White Blood Count 9.8 X10*3/uL (4.8-10.8)
[2021-02-14 17:12] LABS: Alanine Aminotransferase 28 U/L (0-40); Albumin Level 4.5 g/dL (3.5-5.0); Alkaline Phosphatase 152 U/L (39-117); Anion Gap 13 (12-20); Aspartate Amino Transferase 20 U/L (5-37); Bilirubin Direct < 0.2 mg/dL (0.0-0.5); Bilirubin Total 0.4 mg/dL (0.0-1.0); Blood Urea Nitrogen 9 mg/dL (9-16); Calcium 9.5 mg/dL (8.4-10.2); Carbon Dioxide 28 mmol/L (22-29); Chloride 106 mmol/L (96-108); Creatinine Clr Calc Pharmacy 138.5; Estimated Glomerular Filt Rate > 60; Glucose Fasting 93 mg/dL (60-99); Lipase 34 U/L (8-78); Sodium 143 mmol/L (135-145); Total Protein 7.3 g/dL (6.5-8.0)
--- NOTE | 2021-02-14 17:58 | ED.GENADULT ---
HPI - General Adult General Chief complaint: Abdominal Pain Stated complaint: severe side pain, radiating onto lower back Time Seen by Provider: 02/14/21 17:47 Source: patient Mode of arrival: ambulatory Limitations: no limitations History of Present Illness HPI narrative: Patient presents to ED for left-sided pain including left lower back that is worse on movement. Patient denies any dysuria, hematuria, fever, chills, nausea, testicular pain or vomiting. Patient has history of sciatica. Patient states pain started yesterday on the house may have had sudden movement admits to lifting things while watching television but was unaware of anything being heavy. Patient denies any blunt trauma to abdomen or back. Related Data Previous Rx's Medication Instructions Recorded tramadol 50 mg tablet 50 mg PO Q8H PRN #7 tab 04/22/20 cyclobenzaprine 10 mg tablet 10 mg PO TID PRN #14 tab 04/24/20 prednisone 20 mg tablet 40 mg PO DAILY 5 Days #10 tab 04/24/20 ibuprofen 400 mg tablet 400 mg PO Q6H PRN #20 tab 06/09/20 ondansetron 4 mg disintegrating 4 mg PO TID PRN 5 Days #10 tab 06/09/20 tablet metoclopramide HCl 10 mg tablet 10 mg PO Q6H PRN #5 tab 06/26/20 (Reglan) ondansetron 4 mg disintegrating 4 mg PO Q8H PRN #20 tab 07/12/20 tablet ahopshluho-yjffsdythrtge-zreabjxc 1 cap PO Q4-6H PRN #20 cap 08/04/20 50 mg-300 mg-40 mg capsule (Fioricet) acetaminophen 500 mg tablet 1,000 mg PO QID PRN #14 tab 08/13/20 (Tylenol Extra Strength) albuterol sulfate 90 mcg/actuation 1 inh INHALATION QID PRN #8.5 g 08/13/20 aerosol inhaler azithromycin 250 mg tablet See Rx Instructions .ROUTE 08/13/20 .COMPLEX #6 tab cyclobenzaprine 10 mg tablet 10 mg PO TID PRN #10 tab 08/13/20 ibuprofen 800 mg tablet 800 mg PO Q8H PRN #14 tab 08/13/20 prednisone 20 mg tablet 40 mg PO DAILY 5 Days #10 tab 08/13/20 hydrocodone 5 mg-acetaminophen 325 1 tab PO Q8H PRN 3 Days #7 tab 09/05/20 mg tablet gnzaljifqg-qwsmjwmrrbtgf-xijqylqi 1 cap PO Q4-6H PRN #20 cap 10/27/20 50 mg-300 mg-40 mg capsule (Fioricet) oxycodone 5 mg tablet 5 mg PO TID PRN #7 tab 01/11/21 azithromycin 250 mg tablet 250 mg PO DAILY 4 Days #4 tab 02/01/21 dexamethasone 6 mg tablet 6 mg PO DAILY 6 Days #6 tab 02/01/21 cyclobenzaprine 10 mg tablet 10 mg PO TID PRN #18 tab 02/14/21 naproxen 500 mg tablet 500 mg PO BID PRN #20 tab 02/14/21 Allergies Allergy/AdvReac Type Severity Reaction Status Date / Time metoclopramide [From REGLAN] Allergy Intermediate AGITATION Verified 02/14/21 14:25 prochlorperazine Allergy Intermediate AGITATION Verified 02/14/21 14:25 [From COMPAZINE] diphenhydramine AdvReac Intermediate AGITATION Verified 02/14/21 14:25 [From BENADRYL] Review of Systems Review of Systems: Yes all other systems are reviewed and are negative Constitutional: Constitutional: Reports as per HPI and Reports no additional constitutional complaints Eyes: Eyes: Reports as per HPI and Reports no additional eye complaints Cardiovascular: Cardiovascular: Reports as per HPI and Reports no additional cardiovascular complaints Respiratory: Respiratory: Reports as per HPI and Reports no additional respiratory complaints Gastrointestinal: Gastrointestinal: Reports as per HPI and Reports no additional gastrointestinal complaints Comments: Left sided pain Musculoskeletal: Musculoskeletal: Reports no additional musculoskeletal complaints, Reports as per HPI and Reports back pain Neurologic: Reports system reviewed and no additional complaints, except as documented and Reports as per HPI Psychiatric: Psychiatric: Reports no additional psychiatric complaints and Reports as per HPI Endocrine: Endocrine: Reports no additional endocrine complaints and Reports as per HPI PMF Past Medical History Medical History Afib Anxiety Depression GERD (gastroesophageal reflux disease) Kidney stone Migraine Pneumonia Surgical History Hx of appendectomy Hx of cholecystectomy Social History Social History Alcohol intake: current Alcohol intake frequency: holidays/special occasions only Patient Tobacco Use Status: Never used Tobacco Substance Use Type: Marijuana Advance Directives: Yes Advance Directives on File: Yes Advance Directives Date on File: 05/01/20 Physical Exam Vital Signs: Vital Signs: Last Vital Signs Temp 98.5 F 02/14/21 18:03 Pulse 84 02/14/21 18:03 Resp 16 02/14/21 18:03 BP 152/98 H 02/14/21 18:03 Pulse Ox 97 02/14/21 18:03 Body Mass Index 32.5 Const: General: cooperative, healthy appearing, comfortable, no acute distress and well developed Orientation/consciousness: patient oriented x3 HENMT: Head: Yes normal to inspection, Yes No palpable skull fracture present, Yes normocephalic and Yes atraumatic Eyes: General: appearance normal, both eyes and all related structures Neck: Neck: Yes normal visual inspection, Yes full ROM, Yes no lymphadenopathy, Yes no meningeal signs, Yes trachea midline, Yes supple and No tender Chest: Chest palpation & inspection: normal inspection of the chest and normal palpation of entire chest wall Resp: Effort & Inspection: normal respiratory effort and able to speak in complete sentences Auscultation: clear to auscultation bilaterally Cardio: Jugular venous distension: no JVD Heart sounds: S1 normal heart sound present and S2 normal heart sound present GI: Inspection: Yes normal to inspection and No abdominal wall ecchymosis Palpation (GI): Soft to palpation, not firm, Tenderness to palpation present (GI), no guarding and not rigid Abdomen image: 1. Tenderness on palpation and movement : General: Yes no CVA tenderness Back/Spine/Pelvis: Back: no CVA tenderness and back tenderness Back/spine/pelvis image: 1. Tenderness on palpation. Positive for pain on range of motion. Skin: General skin exam: no rashes or lesions noted and elasticity normal Neuro: General: patient oriented x3, gait normal, no meningeal signs and CN's II-XI intact bilaterally Cranial nerves: Yes CN's II-XII intact bilaterally Extrem: General: Yes normal to inspection and Yes full ROM Psych: Appearance: grossly normal, well kempt and not disheveled Course Course Course Narrative: Pain mostly muscular but will do medical evaluation including labs and urine. Reevaluation(s) Reevaluation #1: Patient sent for CT scan to rule out any diverticulitis or kidney stones. Patient given Toradol and Flexeril. Time: 16:50 Reevaluation #2: Patient's CT scan came back normal and negative for any acute left-sided etiology. Patient feels better after Toradol and NSAIDs. Diagnosis muscle spasm/back sprain. Time: 22:57 Medical Decision Making MDM Narrative Medical decision making narrative: Muscle strain/muscle spasm Lab Data Result diagrams: 02/14/21 16:43 02/14/21 16:43 Labs: Lab Results 02/14/21 02/14/21 02/14/21 Range/Units 16:43 16:43 18:04 WBC 9.8 (4.8-10.8) X10*3/uL RBC 5.19 (4.60-5.80) X10*6/uL Hgb 14.2 (14.0-18.0) g/dl Hct 43.2 (42-52) % MCV 83.2 (80-98) fL MCH 27.4 (27.0-33.0) pg MCHC 32.9 (31.0-36.0) g/dl RDW 13.1 (11.0-16.0) % Plt Count 272 (160-400) X10*3/uL MPV 8.2 L (9.4-12.4) fL Immature Gran % (Auto) 0.4 (0.0-0.4) % Neut % (Auto) 69.6 (45-73) % Lymph % (Auto) 17.9 L (20-40) % [place] % (Auto) 10.3 (2-11) % Eos % (Auto) 1.6 (0-4) % Baso % (Auto) 0.2 (0-2) % Lymph # (Auto) 1.8 (1.2-4.9) X10*3/uL [place] # (Auto) 1.0 (0.1-1.2) X10*3/uL Eos # (Auto) 0.2 (0.0-0.4) X10*3/uL Baso # (Auto) 0.0 (0.0-0.2) X10*3/uL Abs Immat Gran (auto) 0.04 H (0.00-0.03) X10*3/uL Absolute Neuts (auto) 6.8 (2.0-8.3) X10*3/uL Absolute Nucleated RBC 0.000 (0.0-0.012) X10*3/uL Nucleated RBC % (auto) 0.0 (0.0-0.2) /100WBC Sodium 143 (135-145) mmol/L Potassium 4.0 (3.3-5.1) mmol/L Chloride 106 (96-108) mmol/L Carbon Dioxide 28 (22-29) mmol/L Anion Gap 13 (12-20) BUN 9 (9-16) mg/dL Creatinine 0.85 (0.5-1.4) mg/dL Estim Creat Clear Calc 138.5 Estimated GFR > 60 Fasting Glucose 93 (60-99) mg/dL Calcium 9.5 (8.4-10.2) mg/dL Total Bilirubin 0.4 (0.0-1.0) mg/dL Direct Bilirubin < 0.2 (0.0-0.5) mg/dL AST 20 (5-37) U/L ALT 28 (0-40) U/L Alkaline Phosphatase 152 H (39-117) U/L Total Protein 7.3 (6.5-8.0) g/dL Albumin 4.5 (3.5-5.0) g/dL Lipase 34 (8-78) U/L Urine Color YELLOW Urine Appearance CLEAR Urine pH 6.5 (5.0-8.0) Ur Specific [place] <= 1.005 (1.005-1.025) Urine Protein NEG (NEG-TRACE) MG/DL Urine Glucose (UA) NEG (NEG) MG/DL Urine Ketones NEG (NEG) MG/DL Urine Blood TRACE (NEG) Urine Nitrite NEG (NEG) Ur Leukocyte Esterase NEG (NEG) Urine RBC 0-2 (0) /HPF Urine WBC 0 (0-4) /HPF Ur Squamous Epith Cells NONE /LPF Urine Bacteria NONE /LPF Discharge Plan Discharge Clinical Impression: Low back sprain, Muscle spasm Patient Disposition: Home, Self-Care Instructions: Low Back Strain (ED), Muscle Spasm (ED) Additional Instructions: Your blood work came back negative. Urine came back negative for UTI. CT scan came back normal. Return to ED for any worsening abdominal pain, nausea, vomiting, fever, chills, flank pain, chest pain, shortness of breath, dysuria, hematuria, blood in stool, rectal bleeding, or any other concerning symptoms. Cyclobenzaprine can cause drowsiness. Do not take at work or while driving. Please follow-up with your PCP Prescriptions: New naproxen 500 mg tablet 500 mg PO BID PRN (Reason: pain) Qty: 20 RF: 0 cyclobenzaprine 10 mg tablet 10 mg PO TID PRN (Reason: pain) Qty: 18 RF: 0 No Action tramadol 50 mg tablet 50 mg PO Q8H PRN (Reason: pain) Qty: 7 RF: 0 cyclobenzaprine 10 mg tablet 10 mg PO TID PRN (Reason: muscle spasm) Qty: 14 RF: 0 prednisone 20 mg tablet 40 mg PO DAILY 5 Days Qty: 10 RF: 0 ondansetron 4 mg tablet,disintegrating 4 mg PO Q8H PRN (Reason: nausea and vomiting) Qty: 20 RF: 0 kwlfueooon-bqonwkehuuibn-jcnq [Fioricet] 50-300-40 mg capsule 1 cap PO Q4-6H PRN (Reason: pain) Qty: 20 RF: 0 cyclobenzaprine 10 mg tablet 10 mg PO TID PRN (Reason: muscle spasm) Qty: 10 RF: 0 azithromycin 250 mg tablet See Rx Instructions .ROUTE .COMPLEX Qty: 6 RF: 0 ibuprofen 800 mg tablet 800 mg PO Q8H PRN (Reason: pain) Qty: 14 RF: 0 prednisone 20 mg tablet 40 mg PO DAILY 5 Days Qty: 10 RF: 0 acetaminophen [Tylenol Extra Strength] 500 mg tablet 1,000 mg PO QID PRN (Reason: fever or pain) Qty: 14 RF: 0 albuterol sulfate 90 mcg/actuation HFA aerosol inhaler 1 inh inhalation QID PRN (Reason: shortness of breath or wheezing) Qty: 8.5 RF: 0 hydrocodone-acetaminophen 5-325 mg tablet 1 tab PO Q8H PRN (Reason: pain, severe) 3 Days Qty: 7 RF: 0 wjrrheynyc-mjcsyehrsthsm-etmn [Fioricet] 50-300-40 mg capsule 1 cap PO Q4-6H PRN (Reason: pain) Qty: 20 RF: 0 oxycodone 5 mg tablet 5 mg PO TID PRN (Reason: pain) Qty: 7 RF: 0 ibuprofen 400 mg tablet 400 mg PO Q6H PRN (Reason: pain) Qty: 20 RF: 0 ondansetron 4 mg tablet,disintegrating 4 mg PO TID PRN (Reason: nausea and vomiting) 5 Days Qty: 10 RF: 0 metoclopramide HCl [Reglan] 10 mg tablet 10 mg PO Q6H PRN (Reason: nausea and vomiting) Qty: 5 RF: 0 dexamethasone 6 mg tablet 6 mg PO DAILY 6 Days Qty: 6 RF: 0 azithromycin 250 mg tablet 250 mg PO DAILY 4 Days Qty: 4 RF: 0 Stand Alone Forms: Work/School Release Interventions: ED Discharge Assessment Last Done: 02/14/21 20:24 Discharge Date/Time: 02/14/21 20:26 Print Language: [place]
[2021-02-14 18:03] VITALS: BP 152/98; PULSE 84; RESP 16; TEMP 36.9; O2SAT 97
[2021-02-14 18:11] LABS: Glucose Urine UA NEG (NEG); Leukocyte Esterase Urine NEG (NEG); Nitrite Urine NEG (NEG); PH 6.5 (5.0-8.0); Specific Gravity - Urine <= 1.005 (1.005-1.025); UACC Culture Trigger NO; Urine Blood TRACE (NEG); Urine Ketones NEG (NEG); Urine Protein NEG (NEG-TRACE)
[2021-02-14 18:12] LABS: Appearance Urine CLEAR; Color Urine YELLOW
[2021-02-14] MEDS: 0.9 % Sodium Chloride 1,000 ML 999 ML IV (18:21)
[2021-02-14 18:23] LABS: RBC Urine 0-2 /HPF (0); WBC Urine 0 /HPF (0-4)
[2021-02-14] MEDS: Ketorolac Tromethamine 15 MG/ML VIAL 30 MG IVPUSH (18:39)
[2021-02-14] MEDS: Cyclobenzaprine HCl 5 MG TABLET PO (18:39)
--- NOTE | 2021-02-14 18:41 | PC.NURSE ---
IV inserted. IVF infusing and pt medicated for pain
[2021-02-14] MEDS: iohexoL 350 MG/ML 100 ML INFUS..BTL IV (19:04)
== END 2021-02-14 20:26 | disposition home or self-care (01) ==
PROVIDERS: Emergency Provider Emergency Medicine Emergency Medical Services
DX: S33.5XXA Sprain of ligaments of lumbar spine, initial encounter (principal); X50.0XXA Overexertion from strenuous movement or load, initial encounter; M62.830 Muscle spasm of back; I48.91 Unspecified atrial fibrillation; Y93.9 Activity, unspecified; Y92.039 Unspecified place in apartment as the place of occurrence of the external cause; Y99.9 Unspecified external cause status; Z90.49 Acquired absence of other specified parts of digestive tract; Z79.899 Other long term (current) drug therapy
CPT/HCPCS: 36415; 74177; 80048; 80076; 81001; 83690; 85025; 96361; 96374; 99284; J1885; Q9967

== ENCOUNTER 2021-04-17 11:44 | Emergency (ER) | payer MEDICARE, MEDICAID, SELFPAY ==
--- NOTE | ~2021-04-17 | CT_ITS ---
EXAMINATION: CT BRAIN AND CT CERVICAL SPINE WITHOUT CONTRAST. CLINICAL INFORMATION: Head injury. COMPARISON: CT brain 12/11/2020 TECHNIQUE: 5 mm thin axial and reformatted 2 mm thin sagittal and coronal images of brain were obtained. Axial 3 mm thin and reformatted 2 mm thin sagittal coronal images of cervical spine were obtained. DL 1327 FINDINGS: Brain: There is no acute intra-axial, extra-axial bleed, masses, collection or midline shift. There is no acute infarction evolution. The lateral ventricles are symmetrical in size and configuration without enlargement. The michael to white matter differentiation is maintained normal. Bone windows reveal no calvarial abnormality. There is a 1.1 bony excrescence along the right frontal calvarium on axial image 5/4. There is no scalp soft tissue abnormality. Bilateral paranasal sinuses and mastoid air cells are well-aerated. Cervical spine: On sagittal reconstructed images there is mild straightening of cervical lordosis. The vertebral heights and alignment is normal. There is mild loss of C6 C6-C7 and C7-T1 disc heights with mild ventral spondylosis at the C6-C7 disc levels. The craniovertebral junction and the C1-C2 alignment appears normal. There is no visible acute fracture, dislocation or lytic process seen. The prevertebral and paravertebral soft tissues are normal. The lung apices are clear. CT/CT head/brain wo con IMPRESSION: No acute intracranial process seen. There is no visible acute fracture or dislocation in the cervical spine. There is mild straightening of cervical lordosis likely spasm.
--- NOTE | ~2021-04-17 | CT_ITS ---
EXAMINATION: CT BRAIN AND CT CERVICAL SPINE WITHOUT CONTRAST. CLINICAL INFORMATION: Head injury. COMPARISON: CT brain 12/11/2020 TECHNIQUE: 5 mm thin axial and reformatted 2 mm thin sagittal and coronal images of brain were obtained. Axial 3 mm thin and reformatted 2 mm thin sagittal coronal images of cervical spine were obtained. DL 1327 FINDINGS: Brain: There is no acute intra-axial, extra-axial bleed, masses, collection or midline shift. There is no acute infarction evolution. The lateral ventricles are symmetrical in size and configuration without enlargement. The michael to white matter differentiation is maintained normal. Bone windows reveal no calvarial abnormality. There is a 1.1 bony excrescence along the right frontal calvarium on axial image 5/4. There is no scalp soft tissue abnormality. Bilateral paranasal sinuses and mastoid air cells are well-aerated. Cervical spine: On sagittal reconstructed images there is mild straightening of cervical lordosis. The vertebral heights and alignment is normal. There is mild loss of C6 C6-C7 and C7-T1 disc heights with mild ventral spondylosis at the C6-C7 disc levels. The craniovertebral junction and the C1-C2 alignment appears normal. There is no visible acute fracture, dislocation or lytic process seen. The prevertebral and paravertebral soft tissues are normal. The lung apices are clear. CT/CT cervical spine wo con IMPRESSION: No acute intracranial process seen. There is no visible acute fracture or dislocation in the cervical spine. There is mild straightening of cervical lordosis likely spasm.
--- NOTE | ~2021-04-17 | XR_ITS ---
EXAMINATION: XR KNEE, RIGHT CLINICAL INFORMATION: Right knee injury COMPARISON: None TECHNIQUE: Four views of the right knee. FINDINGS: Bones and soft tissues are normal. No fracture or joint effusion. Alignment is anatomic. Joint spaces are well maintained. No abnormal soft tissue calcification. XR/XR knee RT 2V IMPRESSION: Normal right knee.
[2021-04-17 12:52] VITALS: BP 156/101; PULSE 93; RESP 18; TEMP 36.8; O2SAT 98; BMI 31.0
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
[2021-04-17] MEDS: diazePAM 5 MG TABLET PO (15:34)
[2021-04-17] MEDS: oxyCODONE HCl Immed Release 5 MG TABLET PO (15:34)
--- NOTE | 2021-04-17 15:41 | PC.NURSE ---
In CT scan at this time
== END 2021-04-17 17:18 | disposition home or self-care (01) ==
PROVIDERS: Emergency Provider Emergency Medicine
DX: M79.10 Myalgia, unspecified site (principal); M54.2 Cervicalgia; G44.309 Post-traumatic headache, unspecified, not intractable; M25.561 Pain in right knee; Z79.899 Other long term (current) drug therapy
CPT/HCPCS: 70450; 72125; 73560; 99284

== ENCOUNTER 2021-06-12 12:46 | Emergency (ER) | payer MEDICARE, MEDICAID, SELFPAY ==
[2021-06-12 13:52] VITALS: BP 122/83; PULSE 92; RESP 18; TEMP 36.4; O2SAT 96; BMI 31.0
--- NOTE | 2021-06-12 14:30 | ED.HA ---
HPI - Headache General Chief Complaint: Headache Stated Complaint: Migraine Time Seen by Provider: 06/12/21 14:08 Source: patient Mode of arrival: ambulatory Limitations: no limitations History of Present Illness HPI Narrative: 35-year-old male with a history of migraines, depression, anxiety, GERD, paroxysmal AFib who presents to the ER for evaluation of migraine for the last 1 week. It is mostly on the right side of his head and he has an aura. He has taken all of his medications at home including Imitrex, Tylenol, ibuprofen with no improvement. He is followed by Dr. Melendez and Neurology cannot be seen in the office until next week or early next week. He states he is dizzy and nauseous. He has not vomited. He has had no fever or chills. He reports the back of his neck and upper shoulders are tense and tight which is making his headache worse. MD elicited complaint: migraine Pertinent past history: migraines Onset (ago): week(s) (1) Onset description: gradually Location: right Severity: severe Pain scale (0-10): 8 Quality & Timing: aching, throbbing and similar to previous headaches Exacerbating factors: sitting/standing, light and noise Relieving factors: nothing Associated symptoms: nausea, sensitivity to sound and lightheadedness Treatments prior to arrival: acetaminophen, ibuprofen and migraine medication Related Data Previous Rx's Medication Instructions Recorded tramadol 50 mg tablet 50 mg PO Q8H PRN #7 tab 04/22/20 cyclobenzaprine 10 mg tablet 10 mg PO TID PRN #14 tab 04/24/20 prednisone 20 mg tablet 40 mg PO DAILY 5 Days #10 tab 04/24/20 ibuprofen 400 mg tablet 400 mg PO Q6H PRN #20 tab 06/09/20 ondansetron 4 mg disintegrating 4 mg PO TID PRN 5 Days #10 tab 06/09/20 tablet metoclopramide HCl 10 mg tablet 10 mg PO Q6H PRN #5 tab 06/26/20 (Reglan) ondansetron 4 mg disintegrating 4 mg PO Q8H PRN #20 tab 07/12/20 tablet vbfzdqovtt-qtpmtswqpylft-qyfmehhz 1 cap PO Q4-6H PRN #20 cap 08/04/20 50 mg-300 mg-40 mg capsule (Fioricet) acetaminophen 500 mg tablet 1,000 mg PO QID PRN #14 tab 08/13/20 (Tylenol Extra Strength) albuterol sulfate 90 mcg/actuation 1 inh INHALATION QID PRN #8.5 g 08/13/20 aerosol inhaler azithromycin 250 mg tablet See Rx Instructions .ROUTE 08/13/20 .COMPLEX #6 tab cyclobenzaprine 10 mg tablet 10 mg PO TID PRN #10 tab 08/13/20 ibuprofen 800 mg tablet 800 mg PO Q8H PRN #14 tab 08/13/20 prednisone 20 mg tablet 40 mg PO DAILY 5 Days #10 tab 08/13/20 hydrocodone 5 mg-acetaminophen 325 1 tab PO Q8H PRN 3 Days #7 tab 09/05/20 mg tablet crcvegcvzk-vmspfqstwwtqx-nqlchioa 1 cap PO Q4-6H PRN #20 cap 10/27/20 50 mg-300 mg-40 mg capsule (Fioricet) oxycodone 5 mg tablet 5 mg PO TID PRN #7 tab 01/11/21 azithromycin 250 mg tablet 250 mg PO DAILY 4 Days #4 tab 02/01/21 dexamethasone 6 mg tablet 6 mg PO DAILY 6 Days #6 tab 02/01/21 cyclobenzaprine 10 mg tablet 10 mg PO TID PRN #18 tab 02/14/21 naproxen 500 mg tablet 500 mg PO BID PRN #20 tab 02/14/21 cyclobenzaprine 10 mg tablet 10 mg PO TID PRN #14 tab 04/17/21 ibuprofen 600 mg tablet 600 mg PO TID PRN #20 tab 04/17/21 tizanidine 4 mg tablet (Zanaflex) 4 mg PO Q8H PRN #7 tab 06/12/21 Allergies Allergy/AdvReac Type Severity Reaction Status Date / Time metoclopramide [From REGLAN] Allergy Intermediate AGITATION Verified 04/17/21 12:52 prochlorperazine Allergy Intermediate AGITATION Verified 04/17/21 12:52 [From COMPAZINE] diphenhydramine AdvReac Intermediate AGITATION Verified 04/17/21 12:52 [From BENADRYL] Review of Systems Review of Systems: Constitutional: No Fever, No Chills Eyes: + Eye Pain, No Swelling, No Redness, No vision changes Cardiovascular: No Chest Pain, No SOB Respiratory: No Cough, No Sputum, No Wheezing, No dyspnea Gastrointestinal: + Nausea, No Vomiting, No Diarrhea, No abdominal Pain, No Hematochezia Genitourinary: No Dysuria, No Urinary Frequency, No Hematuria Musculoskeletal: No joint pain, No Myalgias Skin: No Skin Lesions, No rash Neuro: No Weakness, No Numbness, + Dizziness, + Headache Psych: No Anxiety/Panic, No Depression Heme/Lymph: No Bruising, No Lymphadenopathy PMFSH Past Medical History Medical History Afib Anxiety Depression GERD (gastroesophageal reflux disease) Kidney stone Migraine Pneumonia Surgical History Hx of appendectomy Hx of cholecystectomy Social History Social History Alcohol intake: current Alcohol intake frequency: does not drink Patient Tobacco Use Status: Never used Tobacco Substance Use Type: Marijuana Advance Directives: No Advance Directives Information Provided: Yes Advance Directives Date on File: 05/01/20 Physical Exam Vital Signs: Vital Signs: Last Vital Signs Temp 98.3 F 06/12/21 15:17 Pulse 86 06/12/21 15:17 Resp 16 06/12/21 15:17 BP 141/84 H 06/12/21 15:17 Pulse Ox 98 06/12/21 15:17 Body Mass Index 31.0 Appearance: Alert. Oriented X3. No acute distress. Eyes: Pupils equal, round and reactive to light. EOMI, no nystagmus ENT: Pharynx normal. Neck: Normal inspection. Neck supple. CVS: Normal heart rate and rhythm. Pulses normal. Respiratory: No respiratory distress. Breath sounds normal. Abdomen: Soft and nontender. +BS x4 Skin: Skin warm and dry. Normal skin color. Normal skin turgor. No rashes. Extremities: No lower extremity edema. Neuro: Oriented X 3. No motor deficit. No sensory deficit. Course Course Course Narrative: 35-year-old male with history of migraine headaches present to the ER with 1 week of typical migraine headache for him. No relief with home medications. Will plan to start IV and give IV Zofran, IV Toradol, IV Benadryl. He reports adverse reaction to Reglan and Compazine. Will reassess after meds. Reevaluation(s) Reevaluation #1: Patient continues to report pretty significant migraine. He is asking for additional medication. Will give a trial of oxycodone and see how he feels after that. Reevaluation #2: Patient is feeling better after 2nd round of medications. He expressed frustration about his lack of migraine control on Imitrex. He has ongoing insurance issues with them not covering the new medications at for migraine. He had a 90 day trial of a medication with significant decrease in his days per month however this would cost him 800 dollars every 3 months for the injection. He has an appointment with Dr. Melendez next week and is going to discuss other medication options moving forward. At this time is stable for discharge home with neurology follow-up. Discharge Plan Discharge Clinical Impression: Migraine Patient Disposition: Home, Self-Care Instructions: Migraine Headache (ED) Additional Instructions: Follow-up with your Neuologist as soon as possible. If you develop new or worsening symptoms call 911 or come back to the ER for further evaluation. Prescriptions: New tizanidine [Zanaflex] 4 mg tablet 4 mg PO Q8H PRN (Reason: muscle spasticity) Qty: 7 RF: 0 No Action tramadol 50 mg tablet 50 mg PO Q8H PRN (Reason: pain) Qty: 7 RF: 0 cyclobenzaprine 10 mg tablet 10 mg PO TID PRN (Reason: muscle spasm) Qty: 14 RF: 0 prednisone 20 mg tablet 40 mg PO DAILY 5 Days Qty: 10 RF: 0 ondansetron 4 mg tablet,disintegrating 4 mg PO Q8H PRN (Reason: nausea and vomiting) Qty: 20 RF: 0 bahcxsubxu-lpgtjycsbgtzn-rbnx [Fioricet] 50-300-40 mg capsule 1 cap PO Q4-6H PRN (Reason: pain) Qty: 20 RF: 0 cyclobenzaprine 10 mg tablet 10 mg PO TID PRN (Reason: muscle spasm) Qty: 10 RF: 0 azithromycin 250 mg tablet See Rx Instructions .ROUTE .COMPLEX Qty: 6 RF: 0 ibuprofen 800 mg tablet 800 mg PO Q8H PRN (Reason: pain) Qty: 14 RF: 0 prednisone 20 mg tablet 40 mg PO DAILY 5 Days Qty: 10 RF: 0 acetaminophen [Tylenol Extra Strength] 500 mg tablet 1,000 mg PO QID PRN (Reason: fever or pain) Qty: 14 RF: 0 albuterol sulfate 90 mcg/actuation HFA aerosol inhaler 1 inh inhalation QID PRN (Reason: shortness of breath or wheezing) Qty: 8.5 RF: 0 hydrocodone-acetaminophen 5-325 mg tablet 1 tab PO Q8H PRN (Reason: pain, severe) 3 Days Qty: 7 RF: 0 givikrizmr-hjajvbouqbhen-mgwp [Fioricet] 50-300-40 mg capsule 1 cap PO Q4-6H PRN (Reason: pain) Qty: 20 RF: 0 oxycodone 5 mg tablet 5 mg PO TID PRN (Reason: pain) Qty: 7 RF: 0 naproxen 500 mg tablet 500 mg PO BID PRN (Reason: pain) Qty: 20 RF: 0 cyclobenzaprine 10 mg tablet 10 mg PO TID PRN (Reason: pain) Qty: 18 RF: 0 ibuprofen 400 mg tablet 400 mg PO Q6H PRN (Reason: pain) Qty: 20 RF: 0 ondansetron 4 mg tablet,disintegrating 4 mg PO TID PRN (Reason: nausea and vomiting) 5 Days Qty: 10 RF: 0 metoclopramide HCl [Reglan] 10 mg tablet 10 mg PO Q6H PRN (Reason: nausea and vomiting) Qty: 5 RF: 0 dexamethasone 6 mg tablet 6 mg PO DAILY 6 Days Qty: 6 RF: 0 azithromycin 250 mg tablet 250 mg PO DAILY 4 Days Qty: 4 RF: 0 cyclobenzaprine 10 mg tablet 10 mg PO TID PRN (Reason: muscle spasm) Qty: 14 RF: 0 ibuprofen 600 mg tablet 600 mg PO TID PRN (Reason: pain) Qty: 20 RF: 0 Referrals: Zeeshan Melnedez MD [Physician] - 2 days (Migraine headache) Stand Alone Forms: Work/School Release
[2021-06-12] MEDS: Butalb/Acetamin/Caff 50/325/40 TABLET 1 TAB PO (15:09)
[2021-06-12] MEDS: 0.9 % Sodium Chloride 1,000 ML 999 ML IVCONT (15:09)
[2021-06-12] MEDS: Ketorolac Tromethamine 30 MG/ML VIAL IVPUSH (15:11)
[2021-06-12] MEDS: ondansetron HCL 4 MG/2 ML VIAL IVPUSH (15:11)
[2021-06-12] MEDS: diphenhydrAMINE HCL 50 MG/ML VIAL IVPUSH (15:11)
[2021-06-12 15:17] VITALS: BP 141/84; PULSE 86; RESP 16; TEMP 36.8; O2SAT 98
[2021-06-12] MEDS: oxyCODONE HCl Immed Release 5 MG TABLET PO (16:17)
== END 2021-06-12 17:38 | disposition home or self-care (01) ==
PROVIDERS: Emergency Provider Emergency Medicine Emergency Medical Services; PCP Nurse Practitioner Family
DX: G43.909 Migraine, unspecified, not intractable, without status migrainosus (principal); R11.0 Nausea; I48.0 Paroxysmal atrial fibrillation; F12.90 Cannabis use, unspecified, uncomplicated
CPT/HCPCS: 96361; 96374; 96375; 99283; 99284; J1200; J1885; J2405

== ENCOUNTER 2021-06-24 17:47 | Emergency (ER) | payer MEDICARE, MEDICAID, SELFPAY ==
[2021-06-24 18:07] VITALS: BP 174/103; PULSE 97; RESP 18; TEMP 36.9; O2SAT 96; BMI 31.0
--- NOTE | 2021-06-24 20:48 | ED_ITS ---
HPI - Abdominal Pain General Chief Complaint: Nausea/Vomiting/Diarrhea Stated Complaint: hernia larger now pain and vomiting Time Seen by Provider: 06/24/21 20:44 Source: patient Mode of arrival: ambulatory Limitations: no limitations History of Present Illness HPI narrative: Patient with pain in the upper abdomen area for long time had a CT scan done on 03/03 there is no ventral hernia was in [facility] last week where he was told that he has a ventral hernia comes here as he feels that the swelling is getting bigger and more pain with nausea and vomiting patient is status post cholecystectomy and appendectomy Related Data Previous Rx's Medication Instructions Recorded tramadol 50 mg tablet 50 mg PO Q8H PRN #7 tab 04/22/20 cyclobenzaprine 10 mg tablet 10 mg PO TID PRN #14 tab 04/24/20 prednisone 20 mg tablet 40 mg PO DAILY 5 Days #10 tab 04/24/20 ibuprofen 400 mg tablet 400 mg PO Q6H PRN #20 tab 06/09/20 ondansetron 4 mg disintegrating 4 mg PO TID PRN 5 Days #10 tab 06/09/20 tablet metoclopramide HCl 10 mg tablet 10 mg PO Q6H PRN #5 tab 06/26/20 (Reglan) ondansetron 4 mg disintegrating 4 mg PO Q8H PRN #20 tab 07/12/20 tablet lfxuglgbvx-eodlmwusgkket-nonusbao 1 cap PO Q4-6H PRN #20 cap 08/04/20 50 mg-300 mg-40 mg capsule (Fioricet) acetaminophen 500 mg tablet 1,000 mg PO QID PRN #14 tab 08/13/20 (Tylenol Extra Strength) albuterol sulfate 90 mcg/actuation 1 inh INHALATION QID PRN #8.5 g 08/13/20 aerosol inhaler azithromycin 250 mg tablet See Rx Instructions .ROUTE 08/13/20 .COMPLEX #6 tab cyclobenzaprine 10 mg tablet 10 mg PO TID PRN #10 tab 08/13/20 ibuprofen 800 mg tablet 800 mg PO Q8H PRN #14 tab 08/13/20 prednisone 20 mg tablet 40 mg PO DAILY 5 Days #10 tab 08/13/20 hydrocodone 5 mg-acetaminophen 325 1 tab PO Q8H PRN 3 Days #7 tab 09/05/20 mg tablet czyjeqecox-vlszxnoelmsrw-jtcbnpkt 1 cap PO Q4-6H PRN #20 cap 10/27/20 50 mg-300 mg-40 mg capsule (Fioricet) oxycodone 5 mg tablet 5 mg PO TID PRN #7 tab 01/11/21 azithromycin 250 mg tablet 250 mg PO DAILY 4 Days #4 tab 02/01/21 dexamethasone 6 mg tablet 6 mg PO DAILY 6 Days #6 tab 02/01/21 cyclobenzaprine 10 mg tablet 10 mg PO TID PRN #18 tab 02/14/21 naproxen 500 mg tablet 500 mg PO BID PRN #20 tab 02/14/21 cyclobenzaprine 10 mg tablet 10 mg PO TID PRN #14 tab 04/17/21 ibuprofen 600 mg tablet 600 mg PO TID PRN #20 tab 04/17/21 tizanidine 4 mg tablet (Zanaflex) 4 mg PO Q8H PRN #7 tab 06/12/21 ibuprofen 600 mg tablet 600 mg PO Q6H PRN #20 tab 06/24/21 Allergies Allergy/AdvReac Type Severity Reaction Status Date / Time metoclopramide [From REGLAN] Allergy Intermediate AGITATION Verified 04/17/21 12:52 prochlorperazine Allergy Intermediate AGITATION Verified 04/17/21 12:52 [From COMPAZINE] diphenhydramine AdvReac Intermediate AGITATION Verified 04/17/21 12:52 [From BENADRYL] Review of Systems Review of Systems Yes all other systems are reviewed and are negative Physical Exam Vital Signs: Vital Signs: Last Vital Signs Temp 98.4 F 06/24/21 18:07 Pulse 97 06/24/21 18:07 Resp 18 06/24/21 18:07 BP 174/103 H 06/24/21 18:07 Pulse Ox 96 06/24/21 18:07 BMI result Body Mass Index 31.0 Appearance: Alert. Oriented X3. No acute distress. Very anxious ENT: Pharynx normal. Oral Mucosa moist Neck: Normal inspection. Neck supple. CVS: Normal heart rate and rhythm. Pulses normal. Respiratory: No respiratory distress. Equal air entry bilateral, no wheezing/rales/rhonchi Abdomen: Soft and nontender. Slight gap in a recti abdominis muscle no hernia palpable Bowel sounds are present, no mass palpable, no CVA tenderness Neuro: Oriented X 3. Discharge Plan Discharge Clinical Impression: Abdominal pain Qualifiers: Abdominal location: periumbilical Qualified Code(s): R10.33 - Periumbilical pain Patient Disposition: Home, Self-Care Instructions: Abdominal Pain (ED) Additional Instructions: Your pain is likely from possible small ventral hernia although your CT scan was negative Ibuprofen for pain as needed Follow with surgeon if pain gets worse Avoid lifting heavy weights more than 50 lb Prescriptions: New ibuprofen 600 mg tablet 600 mg PO Q6H PRN (Reason: pain) Qty: 20 RF: 0 No Action tramadol 50 mg tablet 50 mg PO Q8H PRN (Reason: pain) Qty: 7 RF: 0 cyclobenzaprine 10 mg tablet 10 mg PO TID PRN (Reason: muscle spasm) Qty: 14 RF: 0 prednisone 20 mg tablet 40 mg PO DAILY 5 Days Qty: 10 RF: 0 ondansetron 4 mg tablet,disintegrating 4 mg PO Q8H PRN (Reason: nausea and vomiting) Qty: 20 RF: 0 dcvnzvczxc-tufcbmdtlkbdu-bsbo [Fioricet] 50-300-40 mg capsule 1 cap PO Q4-6H PRN (Reason: pain) Qty: 20 RF: 0 cyclobenzaprine 10 mg tablet 10 mg PO TID PRN (Reason: muscle spasm) Qty: 10 RF: 0 azithromycin 250 mg tablet See Rx Instructions .ROUTE .COMPLEX Qty: 6 RF: 0 ibuprofen 800 mg tablet 800 mg PO Q8H PRN (Reason: pain) Qty: 14 RF: 0 prednisone 20 mg tablet 40 mg PO DAILY 5 Days Qty: 10 RF: 0 acetaminophen [Tylenol Extra Strength] 500 mg tablet 1,000 mg PO QID PRN (Reason: fever or pain) Qty: 14 RF: 0 albuterol sulfate 90 mcg/actuation HFA aerosol inhaler 1 inh inhalation QID PRN (Reason: shortness of breath or wheezing) Qty: 8.5 RF: 0 hydrocodone-acetaminophen 5-325 mg tablet 1 tab PO Q8H PRN (Reason: pain, severe) 3 Days Qty: 7 RF: 0 azgtbqrlhr-kioezbgjykjqa-ttsh [Fioricet] 50-300-40 mg capsule 1 cap PO Q4-6H PRN (Reason: pain) Qty: 20 RF: 0 oxycodone 5 mg tablet 5 mg PO TID PRN (Reason: pain) Qty: 7 RF: 0 naproxen 500 mg tablet 500 mg PO BID PRN (Reason: pain) Qty: 20 RF: 0 cyclobenzaprine 10 mg tablet 10 mg PO TID PRN (Reason: pain) Qty: 18 RF: 0 ibuprofen 400 mg tablet 400 mg PO Q6H PRN (Reason: pain) Qty: 20 RF: 0 ondansetron 4 mg tablet,disintegrating 4 mg PO TID PRN (Reason: nausea and vomiting) 5 Days Qty: 10 RF: 0 metoclopramide HCl [Reglan] 10 mg tablet 10 mg PO Q6H PRN (Reason: nausea and vomiting) Qty: 5 RF: 0 dexamethasone 6 mg tablet 6 mg PO DAILY 6 Days Qty: 6 RF: 0 azithromycin 250 mg tablet 250 mg PO DAILY 4 Days Qty: 4 RF: 0 cyclobenzaprine 10 mg tablet 10 mg PO TID PRN (Reason: muscle spasm) Qty: 14 RF: 0 ibuprofen 600 mg tablet 600 mg PO TID PRN (Reason: pain) Qty: 20 RF: 0 tizanidine [Zanaflex] 4 mg tablet 4 mg PO Q8H PRN (Reason: muscle spasticity) Qty: 7 RF: 0 Referrals: Bin Briones MD [Physician] - 2 weeks [facility] Past Medical History Medical History Afib Anxiety Depression GERD (gastroesophageal reflux disease) Kidney stone Migraine Pneumonia Surgical History Hx of appendectomy Hx of cholecystectomy Social History Social History Alcohol intake: current Alcohol intake frequency: does not drink Patient Tobacco Use Status: Never used Tobacco Substance Use Type: Marijuana Advance Directives: No Advance Directives Information Provided: No Advance Directives Date on File: 05/01/20
[2021-06-24] MEDS: Ibuprofen 600 MG TABLET PO (21:00)
== END 2021-06-24 21:20 | disposition home or self-care (01) ==
PROVIDERS: Emergency Provider Internal Medicine; PCP Nurse Practitioner Family
DX: R10.33 Periumbilical pain (principal)
CPT/HCPCS: 99283

== ENCOUNTER 2021-10-19 01:12 | Emergency (ER) | payer MEDICARE, MEDICAID, SELFPAY ==
--- NOTE | 2021-10-19 01:13 | ECG_ITS ---
Test Reason : PALPITATIONS Blood Pressure : / mmHG Vent. Rate : 125 BPM Atrial Rate : 125 BPM P-R Int : 132 ms QRS Dur : 112 ms QT Int : 342 ms P-R-T Axes : 058 128 044 degrees QTc Int : 493 ms Sinus tachycardia Left posterior fascicular block Abnormal ECG When compared with ECG of 01-FEB-2021 17:34, Vent. rate has increased BY 41 BPM Left posterior fascicular block is now Present Nonspecific T wave abnormality no longer evident in Anterior leads Referred By: Generic ED Physician Electronically Signed By:LEVI MALDONADO MD
--- NOTE | 2021-10-19 01:38 | PC.NURSE ---
Pt attempting to bring pt back her refused and went home.
[2021-10-19 01:39] VITALS: BP 146/92; PULSE 118; RESP 20; TEMP 36.4; O2SAT 98; BMI 31.0
== END 2021-10-19 01:39 | disposition left against medical advice (07) ==
PROVIDERS: Emergency Provider Emergency Medicine
DX: I48.91 Unspecified atrial fibrillation (principal); R07.89 Other chest pain; Z79.899 Other long term (current) drug therapy; Z20.822 Contact with and (suspected) exposure to COVID-19
CPT/HCPCS: 80307; 82077; 85025; 87635; 93005; 99283; 99284

== ENCOUNTER 2021-10-19 15:10 | Emergency (ER) | payer MEDICARE, MEDICAID, SELFPAY ==
[2021-10-19 15:29] VITALS: BP 166/100; PULSE 95; RESP 19; TEMP 36.1; O2SAT 98; BMI 35.8
[2021-10-19 19:25] LABS: Basophils Percent Auto 0.4 % (0-2); Eosinophils Absolute Auto 0.1 X10*3/uL (0.0-0.4); Eosinophils Percent Auto 1.9 % (0-4); Hematocrit 44.5 % (42.0-52.0); Hemoglobin 14.8 g/dl (14.0-18.0); Imm Gran Abs Auto 0.01 X10*3/uL (0.00-0.03); Imm Gran Pct Auto 0.1 % (0.0-0.4); Lymphocytes Absolute Auto 2.1 X10*3/uL (1.2-4.9); Lymphocytes Percent Auto 30.1 % (20-40); MANUAL DIFF FLAG NO; Mean Corpuscular HGB Conc 33.3 g/dl (31.0-36.0); Mean Corpuscular Hemoglobin 26.9 pg (27.0-33.0); Mean Corpuscular Volume 80.8 fL (80.0-98.0); Mean Platelet Volume 8.1 fL (9.4-12.4); Monocytes Absolute Auto 0.4 X10*3/uL (0.1-1.2); Monocytes Percent Auto 6.3 % (2-11); Neutrophils Absolute Auto 4.2 x10*3/uL (2.0-8.3); Neutrophils Percent Auto 61.2 % (45-73); Platelet Count 298 X10*3/uL (160-400); Red Blood Count 5.51 X10*6/uL (4.60-5.80); Red Cell Distribution Width 13.3 % (11.0-16.0); White Blood Count 6.9 X10*3/uL (4.8-10.8)
[2021-10-19 19:47] LABS: COVID-19 Test Negative (Negative); Ethanol < 10 mg/dL
[2021-10-19 19:57] LABS: Amphetamine Screen Urine Not Detected (Not Detect); Barbiturates, Urine Not Detected (Not Detect); Benzodiazepines Screen Urine Not Detected (Not Detect); Cannabinoid Screen Urine POSITIVE (Not Detect); Cocaine Screen Urine Not Detected (Not Detect); Fentanyl, urine Not Detected (Not Detect); Opiate Screen Urine POSITIVE (Not Detect); Phencyclidine Screen Urine Not Detected (Not Detect)
--- NOTE | 2021-10-19 21:15 | ED.PSYCH ---
HPI - Psych General Chief Complaint: Psychiatric Symptoms Stated Complaint: crisis Time Seen by Provider: 10/19/21 19:19 Source: patient Mode of arrival: ambulatory Limitations: no limitations History of Present Illness HPI Narrative: This is a 35-year-old male past medical history significant for anxiety, depression presenting to the emergency department with worsening in depression and intermittent suicidal thoughts secondary to send life stressors. Patient tells me that this has been going on for few weeks. He reports that he feels supported by his who is helping him throughout however at this time he feels as though he needs more resources and evaluation by mental health professional. Patient tells me that he has a son who is going through puberty and was recently diagnosed with Tourette's. This has been very difficult for the patient because son is constantly whistling, patient is triggered by loud noises which causes him to freak out when the son is with sling. Then he feels very bad for the sun. He also reports intermittent suicidal ideation with plan to overdose he tells me I have thought about taking my 's Robitussin with codeine to . However he tells me he does not think he would do it. Denies homicidal ideation. Denies visual, auditory and tactile hallucinations. Endorses marijuana use however denies alcohol and tobacco. Denies any medical complaints at this time MD complaint: suicidal ideation and feels depressed Onset (ago): week(s) (2) Duration: constant History of same: No Exacerbating factors: none Associated psychiatric symptoms: depression, suicidal ideation and racing thoughts Associated symptoms: denies other symptoms Treatments prior to arrival: none If self harm: admits thoughts of self harm and has plan Related Data Previous Rx's Medication Instructions Recorded tramadol 50 mg tablet 50 mg PO Q8H PRN #7 tab 04/22/20 cyclobenzaprine 10 mg tablet 10 mg PO TID PRN #14 tab 04/24/20 prednisone 20 mg tablet 40 mg PO DAILY 5 Days #10 tab 04/24/20 ibuprofen 400 mg tablet 400 mg PO Q6H PRN #20 tab 06/09/20 ondansetron 4 mg disintegrating 4 mg PO TID PRN 5 Days #10 tab 06/09/20 tablet metoclopramide HCl 10 mg tablet 10 mg PO Q6H PRN #5 tab 06/26/20 (Reglan) ondansetron 4 mg disintegrating 4 mg PO Q8H PRN #20 tab 07/12/20 tablet lrpsykvtfe-ulxkjbnovkvnf-fpdzvxfq 1 cap PO Q4-6H PRN #20 cap 08/04/20 50 mg-300 mg-40 mg capsule (Fioricet) acetaminophen 500 mg tablet 1,000 mg PO QID PRN #14 tab 08/13/20 (Tylenol Extra Strength) albuterol sulfate 90 mcg/actuation 1 inh INHALATION QID PRN #8.5 g 08/13/20 aerosol inhaler azithromycin 250 mg tablet See Rx Instructions .ROUTE 08/13/20 .COMPLEX #6 tab cyclobenzaprine 10 mg tablet 10 mg PO TID PRN #10 tab 08/13/20 ibuprofen 800 mg tablet 800 mg PO Q8H PRN #14 tab 08/13/20 prednisone 20 mg tablet 40 mg PO DAILY 5 Days #10 tab 08/13/20 hydrocodone 5 mg-acetaminophen 325 1 tab PO Q8H PRN 3 Days #7 tab 09/05/20 mg tablet togbzqiwnj-mgmvfaxusjeik-dcwgwzzp 1 cap PO Q4-6H PRN #20 cap 10/27/20 50 mg-300 mg-40 mg capsule (Fioricet) oxycodone 5 mg tablet 5 mg PO TID PRN #7 tab 01/11/21 azithromycin 250 mg tablet 250 mg PO DAILY 4 Days #4 tab 02/01/21 dexamethasone 6 mg tablet 6 mg PO DAILY 6 Days #6 tab 02/01/21 cyclobenzaprine 10 mg tablet 10 mg PO TID PRN #18 tab 02/14/21 naproxen 500 mg tablet 500 mg PO BID PRN #20 tab 02/14/21 cyclobenzaprine 10 mg tablet 10 mg PO TID PRN #14 tab 04/17/21 ibuprofen 600 mg tablet 600 mg PO TID PRN #20 tab 04/17/21 tizanidine 4 mg tablet (Zanaflex) 4 mg PO Q8H PRN #7 tab 06/12/21 ibuprofen 600 mg tablet 600 mg PO Q6H PRN #20 tab 06/24/21 Allergies Allergy/AdvReac Type Severity Reaction Status Date / Time metoclopramide [From REGLAN] Allergy Intermediate AGITATION Verified 04/17/21 12:52 prochlorperazine Allergy Intermediate AGITATION Verified 04/17/21 12:52 [From COMPAZINE] diphenhydramine AdvReac Intermediate AGITATION Verified 04/17/21 12:52 [From BENADRYL] Review of Systems Review of Systems: Constitutional : No Fever, No Chills ENT/Mouth : No Ear Pain, No Nasal Congestion, No sore throat Eyes: No Eye Pain, No Swelling, No Redness Cardiovascular : No Chest Pain, No SOB Respiratory : No Cough, No Sputum, No Dyspnea Gastrointestinal : No Nausea, No Vomiting, No Diarrhea, No Hematochezia, No Melena Genitourinary : No Dysuria, No Urinary Frequency, No Hematuria Musculoskeletal : No Myalgias Skin : No Skin Lesions, No rash Neuro : No Weakness, No Numbness, No Paresthesias, No Dizziness, No Headache Psych : positive Anxiety, positive Depression, positive SI, No HI All other systems reviewed and are negative Yes all other systems are reviewed and are negative [facility] Past Medical History Attestation statement: The following information was validated with the patient. Source: old records reviewed and nursing notes reviewed Medical History Afib Anxiety Depression GERD (gastroesophageal reflux disease) Kidney stone Migraine Pneumonia Surgical History Hx of appendectomy Hx of cholecystectomy Social History Social History Alcohol intake: current Alcohol intake frequency: does not drink Patient Tobacco Use Status: Never used Tobacco Substance Use Type: Marijuana Advance Directives: No Advance Directives Information Provided: No Advance Directives Date on File: 05/01/20 Physical Exam Vital Signs: Vital Signs: Last Vital Signs Temp 97 F 10/19/21 15:29 Pulse 95 10/19/21 15:29 Resp 19 10/19/21 15:29 BP 166/100 H 10/19/21 15:29 Pulse Ox 98 10/19/21 15:29 BMI result Body Mass Index 35.8 Patient's pressure elevated likely secondary to anxiety. Appearance: Alert.? Oriented X3.? No acute distress.? Head: Normocephalic, atraumatic, no step-offs or deformities Eyes: Pupils equal, round and reactive to light.? ENT: Pharynx normal.? Neck: Normal inspection.? Neck supple.? CVS: Normal heart rate and rhythm.? Pulses normal.? Respiratory: No respiratory distress.? Breath sounds normal.? Abdomen: Soft and nontender.? Skin: Skin warm and dry.? Normal skin color.? Normal skin turgor.? Extremities: No lower extremity edema.? No calf ttp. 5/5 strength to bilateral upper and lower extremities Back: No midline tenderness, no C-spine tenderness, full range of motion, no CVA tenderness bilaterally Neuro: Oriented X 3.? No motor deficit.? No sensory deficit. CN 2-12 intact Course Reevaluation(s) Reevaluation #1: Patient's CBC within normal limits. No acute electrolyte abnormalities. Urine clean. Urine toxicology positive for opiates and marijuana. COVID negative. At this time patient will be placed in physician observation to allow more time to be evaluated by the behavioral health team. At time observation was started patient, cooperative no acute distress. Will continue to monitor Time: 21:20 MDM - Psych MDM Narrative Medical decision making narrative: 2117 35 yo m presents w/ complaints of SI, anxiety and depression X 2 weeks Physical exam benign. Plan at this time is medical clearance. Medical Records Attestation: I reviewed the patient's medical records. Lab Data Attestation: I reviewed the patient's lab results. Result diagrams: 10/19/21 19:20 Labs: Lab Results 10/19/21 10/19/21 10/19/21 Range/Units 19:20 19:20 19:20 WBC 6.9 (4.8-10.8) X10*3/uL RBC 5.51 (4.60-5.80) X10*6/uL Hgb 14.8 (14.0-18.0) g/dl Hct 44.5 (42.0-52.0) % MCV 80.8 (80.0-98.0) fL MCH 26.9 L (27.0-33.0) pg MCHC 33.3 (31.0-36.0) g/dl RDW 13.3 (11.0-16.0) % Plt Count 298 (160-400) X10*3/uL MPV 8.1 L (9.4-12.4) fL Immature Gran % (Auto) 0.1 (0.0-0.4) % Neut % (Auto) 61.2 (45-73) % Lymph % (Auto) 30.1 (20-40) % [place] % (Auto) 6.3 (2-11) % Eos % (Auto) 1.9 (0-4) % Baso % (Auto) 0.4 (0-2) % Lymph # (Auto) 2.1 (1.2-4.9) X10*3/uL [place] # (Auto) 0.4 (0.1-1.2) X10*3/uL Eos # (Auto) 0.1 (0.0-0.4) X10*3/uL Baso # (Auto) 0.0 (0.0-0.2) X10*3/uL Abs Immat Gran (auto) 0.01 (0.00-0.03) X10*3/uL Absolute Neuts (auto) 4.2 (2.0-8.3) x10*3/uL Absolute Nucleated RBC 0.000 (0.0-0.012) X10*3/uL Nucleated RBC % (auto) 0.0 (0.0-0.2) /100WBC Urine Opiates Screen (Not Detect) Urine Fentanyl Screen (Not Detect) Ur Barbiturates Screen (Not Detect) Ur Phencyclidine Scrn (Not Detect) Ur Amphetamines Screen (Not Detect) U Benzodiazepines Scrn (Not Detect) Urine Cocaine Screen (Not Detect) U Marijuana (THC) Screen (Not Detect) Ethyl Alcohol < 10 mg/dL COVID-19 (SAM) Negative (Negative) COVID-19 Clin Com See Note 10/19/21 Range/Units 19:33 WBC (4.8-10.8) X10*3/uL RBC (4.60-5.80) X10*6/uL Hgb (14.0-18.0) g/dl Hct (42.0-52.0) % MCV (80.0-98.0) fL MCH (27.0-33.0) pg MCHC (31.0-36.0) g/dl RDW (11.0-16.0) % Plt Count (160-400) X10*3/uL MPV (9.4-12.4) fL Immature Gran % (Auto) (0.0-0.4) % Neut % (Auto) (45-73) % Lymph % (Auto) (20-40) % [place] % (Auto) (2-11) % Eos % (Auto) (0-4) % Baso % (Auto) (0-2) % Lymph # (Auto) (1.2-4.9) X10*3/uL [place] # (Auto) (0.1-1.2) X10*3/uL Eos # (Auto) (0.0-0.4) X10*3/uL Baso # (Auto) (0.0-0.2) X10*3/uL Abs Immat Gran (auto) (0.00-0.03) X10*3/uL Absolute Neuts (auto) (2.0-8.3) x10*3/uL Absolute Nucleated RBC (0.0-0.012) X10*3/uL Nucleated RBC % (auto) (0.0-0.2) /100WBC Urine Opiates Screen POSITIVE H (Not Detect) Urine Fentanyl Screen Not Detected (Not Detect) Ur Barbiturates Screen Not Detected (Not Detect) Ur Phencyclidine Scrn Not Detected (Not Detect) Ur Amphetamines Screen Not Detected (Not Detect) U Benzodiazepines Scrn Not Detected (Not Detect) Urine Cocaine Screen Not Detected (Not Detect) U Marijuana (THC) Screen POSITIVE H (Not Detect) Ethyl Alcohol mg/dL COVID-19 (SAM) (Negative) COVID-19 Clin Com Critical Care Time Critical Care Time Critical Care Time: No Discharge Plan Discharge Clinical Impression: Suicidal ideation, Acute anxiety, Depression Patient Disposition: Still a Patient Prescriptions: No Action tramadol 50 mg tablet 50 mg PO Q8H PRN (Reason: pain) Qty: 7 0RF cyclobenzaprine 10 mg tablet 10 mg PO TID PRN (Reason: muscle spasm) Qty: 14 0RF prednisone 20 mg tablet 40 mg PO DAILY 5 Days Qty: 10 0RF ondansetron 4 mg tablet,disintegrating 4 mg PO Q8H PRN (Reason: nausea and vomiting) Qty: 20 0RF iusimcaupy-ktqyayyuqkqwp-xqzy [Fioricet] 50-300-40 mg capsule 1 cap PO Q4-6H PRN (Reason: pain) Qty: 20 0RF cyclobenzaprine 10 mg tablet 10 mg PO TID PRN (Reason: muscle spasm) Qty: 10 0RF azithromycin 250 mg tablet See Rx Instructions .ROUTE .COMPLEX Qty: 6 0RF Rx Instructions: take 500 mg today (day 1), then 250 mg for 4 days (days 2-5) ibuprofen 800 mg tablet 800 mg PO Q8H PRN (Reason: pain) Qty: 14 0RF prednisone 20 mg tablet 40 mg PO DAILY 5 Days Qty: 10 0RF acetaminophen [Tylenol Extra Strength] 500 mg tablet 1,000 mg PO QID PRN (Reason: fever or pain) Qty: 14 0RF albuterol sulfate 90 mcg/actuation HFA aerosol inhaler 1 inh inhalation QID PRN (Reason: shortness of breath or wheezing) Qty: 8.5 0RF hydrocodone-acetaminophen 5-325 mg tablet 1 tab PO Q8H PRN (Reason: pain, severe) 3 Days Qty: 7 0RF wiyonpcekv-dtaqxjwywnhib-wvgb [Fioricet] 50-300-40 mg capsule 1 cap PO Q4-6H PRN (Reason: pain) Qty: 20 0RF oxycodone 5 mg tablet 5 mg PO TID PRN (Reason: pain) Qty: 7 0RF Rx Instructions: narcotic, no driving for 6 hours after taking this medication naproxen 500 mg tablet 500 mg PO BID PRN (Reason: pain) Qty: 20 0RF cyclobenzaprine 10 mg tablet 10 mg PO TID PRN (Reason: pain) Qty: 18 0RF ibuprofen 400 mg tablet 400 mg PO Q6H PRN (Reason: pain) Qty: 20 0RF ondansetron 4 mg tablet,disintegrating 4 mg PO TID PRN (Reason: nausea and vomiting) 5 Days Qty: 10 0RF metoclopramide HCl [Reglan] 10 mg tablet 10 mg PO Q6H PRN (Reason: nausea and vomiting) Qty: 5 0RF dexamethasone 6 mg tablet 6 mg PO DAILY 6 Days Qty: 6 0RF azithromycin 250 mg tablet 250 mg PO DAILY 4 Days Qty: 4 0RF cyclobenzaprine 10 mg tablet 10 mg PO TID PRN (Reason: muscle spasm) Qty: 14 0RF ibuprofen 600 mg tablet 600 mg PO TID PRN (Reason: pain) Qty: 20 0RF ibuprofen 600 mg tablet 600 mg PO Q6H PRN (Reason: pain) Qty: 20 0RF tizanidine [Zanaflex] 4 mg tablet 4 mg PO Q8H PRN (Reason: muscle spasticity) Qty: 7 0RF
[2021-10-19] MEDS: Ibuprofen 600 MG TABLET PO (23:20)
[2021-10-20 01:03] VITALS: BP 165/109; PULSE 84; RESP 18; TEMP 37.2; O2SAT 95
[2021-10-20] MEDS: QUEtiapine Fumarate 50 MG TABLET PO (01:52)
[2021-10-20] MEDS: risperiDONE 0.5 MG TABLET PO (01:52)
[2021-10-20] MEDS: clonazePAM 1 MG TABLET PO (01:52)
[2021-10-20] MEDS: VerapamiL HCL SR 240 MG TABLET.ER PO (02:01)
--- NOTE | 2021-10-20 06:13 | PC.NURSE ---
Patient slept through the night, no distress observed/reported, medication compliant, behavior appropriate, well engaged with [facility] clinician during assessment, disposition per [facility] is section 12 inpatient bed search, will continue to monitor.
--- NOTE | 2021-10-20 07:21 | PC.NURSE ---
patient appears to remain asleep at present respirations are even and unlabored patient appears in no distress
[2021-10-20] MEDS: Amoxicillin/Potassium Clav 875 MG TABLET PO (09:27)
[2021-10-20] MEDS: buPROPion HCl XL 300 MG TAB.ER.24H PO (09:27)
[2021-10-20] MEDS: Ibuprofen 600 MG TABLET PO (14:23)
[2021-10-20] MEDS: SUMAtriptan succinate 100 MG TABLET PO (15:55)
== END 2021-10-20 15:56 | disposition home or self-care (01) ==
PROVIDERS: Emergency Provider Emergency Medicine; PCP Nurse Practitioner Family
DX: F33.1 Major depressive disorder, recurrent, moderate (principal); R45.851 Suicidal ideations; F41.1 Generalized anxiety disorder; F43.0 Acute stress reaction; Z20.822 Contact with and (suspected) exposure to COVID-19; Z79.899 Other long term (current) drug therapy
CPT/HCPCS: 80307; 82077; 85025; 87635; 99284

== ENCOUNTER 2021-11-18 19:54 | Emergency (ER) | payer MEDICARE, MEDICAID, SELFPAY ==
[2021-11-18 20:11] VITALS: BP 147/105; PULSE 96; RESP 18; TEMP 36.6; O2SAT 98; BMI 32.2
--- NOTE | 2021-11-18 20:46 | ED.HA ---
HPI - Headache General Chief Complaint: Headache Stated Complaint: Chandrairiane Source: patient Mode of arrival: ambulatory Limitations: no limitations History of Present Illness HPI Narrative: 36-year-old male presents with worsening migraine that is unrelieved with the medications that he takes at home. Patient states that the pressure is great and that is photophobia feels almost blinding. MD elicited complaint: migraine Onset (ago): day(s) (1) Onset description: gradually Severity: severe Pain scale (0-10): 10 Quality & Timing: throbbing, pressure, progressively worsening and similar to previous headaches Exacerbating factors: exertion, movement of head/neck, light and noise Relieving factors: nothing Context: occurred at rest Associated symptoms: photophobia Treatments prior to arrival: acetaminophen, ibuprofen, prescription analgesic and migraine medication Related Data Home Medications Medication Instructions Recorded Confirmed amoxicillin 875 mg-potassium 1 tab PO BID 10/19/21 10/19/21 clavulanate 125 mg tablet bupropion HCl 300 mg 24 hr tablet, 1 tab PO QAM 10/19/21 10/19/21 extended release clonazepam 0.5 mg tablet (Klonopin) 1 tab PO QAM PRN 10/19/21 10/19/21 clonazepam 1 mg tablet 1 tab PO BEDTIME PRN 10/19/21 10/19/21 quetiapine 50 mg tablet 1 - 2 tab PO BEDTIME PRN 10/19/21 10/19/21 risperidone 0.5 mg tablet 1 tab PO DAILY 10/19/21 10/19/21 sumatriptan succinate 100 mg tablet 1 tab PO DAILY PRN 10/19/21 10/19/21 verapamil 240 mg 24 hr 1 cap PO DAILY 10/19/21 10/19/21 capsule,extended release Allergies Allergy/AdvReac Type Severity Reaction Status Date / Time metoclopramide [From REGLAN] Allergy Intermediate AGITATION Verified 04/17/21 12:52 prochlorperazine Allergy Intermediate AGITATION Verified 04/17/21 12:52 [From COMPAZINE] diphenhydramine AdvReac Intermediate AGITATION Verified 04/17/21 12:52 [From BENADRYL] Review of Systems Review of Systems: Constitutional: No Fever, No Chills ENT/Mouth: No Ear Pain, No Hoarseness, No sore throat Eyes: No Eye Pain, No Swelling, No Redness, No Foreign Body Cardiovascular: No Chest Pain, No SOB Respiratory: No Cough, No Dyspnea Gastrointestinal: No Nausea, No Vomiting, No Diarrhea, No abdominal Pain Genitourinary: No Dysuria, No Hematuria Musculoskeletal: No joint pain, No Myalgias, No Joint Swelling Skin: No Skin lacerations, No rash Neuro: No Weakness, No Numbness, No Paresthesias, No Loss of Consciousness, No Dizziness, positive migraine Headache Psych: No Anxiety/Panic, No Depression Heme/Lymph: no easy bruising, no Lymphadenopathy Endocrine: No Polyuria, No Polydipsia Yes all other systems are reviewed and are negative [facility] Past Medical History Attestation statement: The following information was validated with the patient. Source: old records reviewed Medical History Afib Anxiety Depression GERD (gastroesophageal reflux disease) Kidney stone Migraine Pneumonia Surgical History Hx of appendectomy Hx of cholecystectomy Social History Social History Alcohol intake: current Alcohol intake frequency: does not drink Patient Tobacco Use Status: Never used Tobacco Substance Use Type: Marijuana Advance Directives: No Advance Directives Information Provided: Yes Advance Directives Date on File: 05/01/20 Physical Exam Vital Signs: Vital Signs: Last Vital Signs Temp 98 F 11/18/21 20:11 Pulse 83 11/18/21 22:29 Resp 18 11/18/21 22:29 BP 141/96 H 11/18/21 22:29 Pulse Ox 99 11/18/21 22:29 BMI result Body Mass Index 32.2 Appearance: Alert. Oriented X3. Moderate distress. Eyes: Pupils equal, round and reactive to light. EOMI. Sclera nonicteric. ENT: Pharynx normal. Moist mucous membranes. Neck: Normal inspection. Neck supple. No nuchal rigidity. No vertebral tenderness or step-offs. CVS: Normal heart rate and rhythm. Pulses normal. Respiratory: No respiratory distress. Breath sounds normal. Abdomen: Soft and nontender. Skin: Skin warm and dry. Normal skin color. Normal skin turgor. Extremities: No lower extremity edema. Gait well balanced well coordinated. Neuro: No motor deficit. No sensory deficit. Cranial nerves 2-12 intact Course Course Course Narrative: 36-year-old male presents with migraine uncontrolled by the medications that he has at home. Took Imitrex, ibuprofen, Tylenol, Excedrin migraine with poor effect. Does follow up with the neurologist, Dr. Melendez on a regular basis. Patient does have some photophobia and sound sensitivity. No indication of meningitis, or other acute findings. No nuchal rigidity, negative Kernig's. Negative Romberg. Will treat with 1 L fluid resuscitation, sumatriptan, Benadryl, Toradol and Fioricet. 22:30 patient states to feel the migraine gradually decreasing. Pain is now 8/10 and patient feels comfortable going home. Patient verbalized understanding of and agrees to plan of care to discharge home. Verbalized understanding of signs and symptoms indicating need for emergent intervention MDM - Headache Differential Diagnosis Differential diagnosis: Likely migraine, tension headache and headache Medical Records Attestation: I reviewed the patient's medical records. Discharge Plan Discharge Clinical Impression: Migraine Patient Disposition: Home, Self-Care Instructions: Migraine Headache (ED) Additional Instructions: You were evaluated for migraine headache. Please continue to take medications that were prescribed to you. Follow up with Neurology. Thank you for choosing this emergency department for evaluation. Please follow-up with primary care physician as needed. Return to the emergency department for any new, concerning, or worsening symptoms. Prescriptions: No Action sumatriptan succinate 100 mg tablet 1 tab PO DAILY PRN (Reason: Migraine Headache) 0RF clonazepam [Klonopin] 0.5 mg tablet 1 tab PO QAM PRN (Reason: Anxiety) 0RF clonazepam 1 mg tablet 1 tab PO BEDTIME PRN (Reason: Anxiety) 0RF risperidone 0.5 mg tablet 1 tab PO DAILY 0RF verapamil 240 mg capsule,ext rel. pellets 24 hr 1 cap PO DAILY 0RF amoxicillin-pot clavulanate 875-125 mg tablet 1 tab PO BID 0RF bupropion HCl 300 mg tablet extended release 24 hr 1 tab PO QAM 0RF quetiapine 50 mg tablet 1 - 2 tab PO BEDTIME PRN (Reason: Sleep) 0RF Referrals: Zeeshan Melendez MD [Physician] - (Migraines) Interventions: ED Discharge Assessment Last Done: 11/18/21 22:59 Discharge Date/Time: 11/18/21 22:59
[2021-11-18] MEDS: Butalb/Acetamin/Caff 50/325/40 TABLET 2 TAB PO (21:19)
[2021-11-18] MEDS: 0.9 % Sodium Chloride 1,000 ML 999 ML IVCONT (21:19)
[2021-11-18] MEDS: diphenhydrAMINE HCL 50 MG/ML VIAL IVPUSH (21:20)
[2021-11-18] MEDS: SUMAtriptan succinate 6 MG/0.5 ML VIAL SUBCUT (21:20)
[2021-11-18 22:29] VITALS: BP 141/96; PULSE 83; RESP 18; O2SAT 99
== END 2021-11-18 22:59 | disposition home or self-care (01) ==
PROVIDERS: Emergency Provider Emergency Medicine
DX: G43.909 Migraine, unspecified, not intractable, without status migrainosus (principal); Z79.899 Other long term (current) drug therapy
CPT/HCPCS: 96361; 96372; 96374; 96375; 99283; 99284; J1200; J3030

== ENCOUNTER 2021-12-13 14:43 | Emergency (ER) | payer MEDICARE, MEDICAID, SELFPAY ==
[2021-12-13 14:54] VITALS: BP 137/89; PULSE 86; RESP 20; TEMP 36.6; O2SAT 97; BMI 31.7
--- NOTE | 2021-12-13 18:14 | ED_ITS ---
HPI - General Adult General Chief complaint: Back Pain/Injury Stated complaint: BACK PAIN Time Seen by Provider: 12/13/21 18:05 Source: patient Limitations: no limitations History of Present Illness HPI narrative: This is a 36-year-old male who 4 days ago was packing at the [facility] where he had been staying for 4 days, did a lot of lifting. He had sudden onset of pain as left lower back with radiation to his left inner thigh. Pain got worse yesterday. He has been taking ibuprofen 800 mg every 6 hours. He reports no constant numbness or tingling but does feel like his left leg falls asleep more easily, and he has had cramping in his left leg. He denies any difficulty getting his urine out but does feel as though he has some urgency to go to the bathroom when he feels like he needs to urinate. He denies any numbness in the saddle area. He does have history of sciatica. Pain is moderately severe, aching, worse with back movement or left leg movement, ambulation Related Data Home Medications Medication Instructions Recorded Confirmed amoxicillin 875 mg-potassium 1 tab PO BID 10/19/21 10/19/21 clavulanate 125 mg tablet bupropion HCl 300 mg 24 hr tablet, 1 tab PO QAM 10/19/21 10/19/21 extended release clonazepam 0.5 mg tablet (Klonopin) 1 tab PO QAM PRN 10/19/21 10/19/21 clonazepam 1 mg tablet 1 tab PO BEDTIME PRN 10/19/21 10/19/21 quetiapine 50 mg tablet 1 - 2 tab PO BEDTIME PRN 10/19/21 10/19/21 risperidone 0.5 mg tablet 1 tab PO DAILY 10/19/21 10/19/21 sumatriptan succinate 100 mg tablet 1 tab PO DAILY PRN 10/19/21 10/19/21 verapamil 240 mg 24 hr 1 cap PO DAILY 10/19/21 10/19/21 capsule,extended release Previous Rx's Medication Instructions Recorded baclofen 20 mg tablet 20 mg PO TID #20 tab 12/13/21 ibuprofen 800 mg tablet 800 mg PO Q8H PRN #30 tab 12/13/21 tramadol 50 mg tablet 50 - 100 mg PO Q4H PRN #20 tab 12/13/21 Allergies Allergy/AdvReac Type Severity Reaction Status Date / Time metoclopramide [From REGLAN] Allergy Intermediate AGITATION Verified 04/17/21 12:52 prochlorperazine Allergy Intermediate AGITATION Verified 04/17/21 12:52 [From COMPAZINE] diphenhydramine AdvReac Intermediate AGITATION Verified 04/17/21 12:52 [From BENADRYL] Review of Systems Review of Systems: Yes all other systems are reviewed and are negative Constitutional: Constitutional: Reports as per HPI and Denies fever(s) Eyes: Eyes: Reports as per HPI and Reports no additional eye complaints ENT: Reports system reviewed and no additional complaints, except as documented, Reports as per HPI, Denies nasal congestion, Denies nasal discharge and Denies sore throat Cardiovascular: Cardiovascular: Reports no additional cardiovascular complaints Respiratory: Respiratory: Reports no additional respiratory complaints Gastrointestinal: Gastrointestinal: Reports no additional gastrointestinal complaints Genitourinary: Genitourinary: Reports no additional male genitourinary complaints, Denies dysuria and Reports urinary urgency Musculoskeletal: Musculoskeletal: Reports back pain, Reports muscle cramps (Left leg) and Denies numbness Integumentary/Breasts: Skin/Breast: Reports as per HPI and Denies rash Neurologic: Reports as per HPI, Denies focal weakness and Denies numbness Comments: Paresthesias left leg Psychiatric: Psychiatric: Reports no additional psychiatric complaints and Reports as per HPI Endocrine: Endocrine: Reports no additional endocrine complaints and Reports as per HPI Hematologic/Lymphatic: Hematologic/Lymphatic: Reports no additional hematologic/lymphatic complaints, Reports as per HPI and Reports other (No peripheral edema) PMFSH Past Medical History Medical History Afib Anxiety Depression GERD (gastroesophageal reflux disease) Kidney stone Migraine Pneumonia Surgical History Hx of appendectomy Hx of cholecystectomy Social History Social History Alcohol intake: never Patient Tobacco Use Status: Never used Tobacco Substance Use Type: Marijuana Substance Use Frequency: Weekly Last Used Substance: Days (ago) Any prior treatment program specific to substance use: No Advance Directives: No Advance Directives Information Provided: No Advance Directives Date on File: 05/01/20 Physical Exam ED Vital Signs: Vital Signs - 24 hr 12/13/21 14:54 12/13/21 19:43 Temperature 97.9 F 98.7 F Pulse Rate 86 88 Respiratory Rate 20 18 Blood Pressure 137/89 150/97 H Pulse Oximetry 97 98 BMI result Body Mass Index 31.7 Const General: no acute distress Orientation/consciousness: patient oriented x3 HENMT Head: Yes normal to inspection General nose exam: Normal external nose present Mouth: moist mucous membranes Throat: Yes posterior oropharynx normal, Yes tonsils normal and Yes uvula midline Eyes Eyelids: Yes eyelids normal Conjunctivae: conjunctivae normal Pupils: Equal, round and reactive pupils present Neck Neck: Yes supple Resp Effort & Inspection: normal respiratory effort Auscultation: clear to auscultation bilaterally Cardio Rate: regular rate Rhythm: regular rhythm Heart sounds: S1 normal heart sound present, S2 normal heart sound present, no gallops, no murmurs and no rubs GI Inspection: No distended Palpation (GI): Soft to palpation and nontender Auscultation: normal bowel sounds Back/Spine/Pelvis Other: Tender lumbar spine especially paraspinal a left lumbar back toward the sacrum. Straight leg positive on the left. No sensory deficit to light touch. Normal power of plantar flexion and extension. Skin General skin exam: other (Warm and dry) Neuro General: patient oriented x3 and CN's II-XI intact bilaterally Cranial nerves: Yes Equal, round and reactive pupils present Extrem General: Yes no pedal edema Psych Affect: normal affect Attitude: cooperative Medical Decision Making [facility] Narrative Medical decision making narrative: Patient with possible lumbar radiculopathy, after doing a lot of lifting [address] versus outpatient MRI with the patient in need for for the latter. Patient was treated with Toradol, Valium, Percocet with some improve ment in his pain. Patient had complained of urinary urgency. UA negative. Lab Data Labs: Lab Results 12/13/21 Range/Units 19:25 Urine Color YELLOW Urine Appearance CLEAR Urine pH 6.0 (5.0-8.0) Ur Specific [place] 1.015 (1.005-1.025) Urine Protein NEG (NEG-TRACE) MG/DL Urine Glucose (UA) NEG (NEG) MG/DL Urine Ketones NEG (NEG) MG/DL Urine Blood 1+ H (NEG) Urine Nitrite NEG (NEG) Ur Leukocyte Esterase NEG (NEG) Urine RBC 0-2 (0) /HPF Urine WBC 0-2 (0-4) /HPF Ur Squamous Epith Cells TRACE /LPF Urine Bacteria NONE /LPF Urine Mucus TRACE /LPF Discharge Plan Discharge Clinical Impression: Back pain, Acute left lumbar radiculopathy Patient Disposition: Home, Self-Care Instructions: Acute Low Back Pain (ED), Lumbar Radiculopathy (ED) Additional Instructions: Try to rest your back, rest with your hips flexed and your knees also of slightly bend, either under back with a pillow underneath her knees, or on her side. An ice pack off and on may help. Use the ibuprofen, baclofen, and tramadol as prescribed. Follow up with your primary care physician. May need outpatient MRI, may need physical therapy referral Prescriptions: New ibuprofen 800 mg tablet 800 mg PO Q8H PRN (Reason: pain) Qty: 30 0RF baclofen 20 mg tablet 20 mg PO TID Qty: 20 0RF tramadol 50 mg tablet 50 - 100 mg PO Q4H PRN (Reason: pain) Qty: 20 0RF No Action sumatriptan succinate 100 mg tablet 1 tab PO DAILY PRN (Reason: Migraine Headache) 0RF clonazepam [Klonopin] 0.5 mg tablet 1 tab PO QAM PRN (Reason: Anxiety) 0RF clonazepam 1 mg tablet 1 tab PO BEDTIME PRN (Reason: Anxiety) 0RF risperidone 0.5 mg tablet 1 tab PO DAILY 0RF verapamil 240 mg capsule,ext rel. pellets 24 hr 1 cap PO DAILY 0RF amoxicillin-pot clavulanate 875-125 mg tablet 1 tab PO BID 0RF bupropion HCl 300 mg tablet extended release 24 hr 1 tab PO QAM 0RF quetiapine 50 mg tablet 1 - 2 tab PO BEDTIME PRN (Reason: Sleep) 0RF Interventions: ED Discharge Assessment Last Done: 12/13/21 19:59 Discharge Date/Time: 12/13/21 20:00
[2021-12-13] MEDS: diazePAM 10 MG/2 ML CARTRIDGE IM (18:52)
[2021-12-13] MEDS: Ketorolac Tromethamine 15 MG/ML VIAL IM (18:53)
[2021-12-13] MEDS: oxyCODONE HCl Immed Release 5 MG TABLET PO (18:53)
[2021-12-13 19:33] LABS: Appearance Urine CLEAR; Color Urine YELLOW; Glucose Urine UA NEG (NEG); Leukocyte Esterase Urine NEG (NEG); Nitrite Urine NEG (NEG); Specific Gravity - Urine 1.015 (1.005-1.025); UACC Culture Trigger NO; Urine Blood 1+ (NEG); Urine Ketones NEG (NEG); Urine Protein NEG (NEG-TRACE)
[2021-12-13 19:43] VITALS: BP 150/97; PULSE 88; RESP 18; TEMP 37.1; O2SAT 98
[2021-12-13 19:51] LABS: Mucus Urine TRACE /LPF; RBC Urine 0-2 /HPF (0); Squamous Epithelial Cell Urine TRACE /LPF; WBC Urine 0-2 /HPF (0-4)
== END 2021-12-13 20:00 | disposition home or self-care (01) ==
PROVIDERS: Emergency Provider Emergency Medicine; PCP Internal Medicine
DX: M54.16 Radiculopathy, lumbar region (principal); R39.15 Urgency of urination
CPT/HCPCS: 81001; 96372; 99284; J1885; J3360

== ENCOUNTER 2021-12-19 12:50 | Emergency (ER) | payer MEDICARE, MEDICAID, SELFPAY ==
[2021-12-19 13:02] VITALS: BP 167/83; PULSE 94; RESP 18; TEMP 36.9; O2SAT 98; BMI 31.7
[2021-12-19] MEDS: oxyCODONE HCl Immed Release 5 MG TABLET PO (15:28)
--- NOTE | 2021-12-19 15:35 | ED.BACK ---
HPI - Back Pain/Injury General Chief Complaint: Back Pain/Injury Stated Complaint: Sciatic pain Time Seen by Provider: 12/19/21 14:39 Source: patient Mode of arrival: ambulatory Limitations: no limitations History of Present Illness HPI Narrative: 36-year-old male presents for left leg numbness and left low back pain. Patient has a history of chronic low back pain, 10 days ago he twisted his back and has had left-sided burning pain. Radiating down his left leg. He was seen in the emergency room on December 13, prescribed tramadol, ibuprofen, and baclofen. patient states the pain is not better, it is worsening, he is due to see his primary care on Friday no leg weakness, no urinary retention, no bowel or bladder incontinence, no saddle paresthesias, no history of IV drug use, no fevers, no history of cancer. Related Data Home Medications Medication Instructions Recorded Confirmed amoxicillin 875 mg-potassium 1 tab PO BID 10/19/21 10/19/21 clavulanate 125 mg tablet bupropion HCl 300 mg 24 hr tablet, 1 tab PO QAM 10/19/21 10/19/21 extended release clonazepam 0.5 mg tablet (Klonopin) 1 tab PO QAM PRN Anxiety 10/19/21 10/19/21 clonazepam 1 mg tablet 1 tab PO BEDTIME PRN Anxiety 10/19/21 10/19/21 quetiapine 50 mg tablet 1 - 2 tab PO BEDTIME PRN Sleep 10/19/21 10/19/21 risperidone 0.5 mg tablet 1 tab PO DAILY 10/19/21 10/19/21 sumatriptan succinate 100 mg tablet 1 tab PO DAILY PRN Migraine 10/19/21 10/19/21 Headache verapamil 240 mg 24 hr 1 cap PO DAILY 10/19/21 10/19/21 capsule,extended release Previous Rx's Medication Instructions Recorded baclofen 20 mg tablet 20 mg PO TID #20 tabs 12/13/21 ibuprofen 800 mg tablet 800 mg PO Q8H PRN pain #30 tabs 12/13/21 tramadol 50 mg tablet 50 - 100 mg PO Q4H PRN pain #20 12/13/21 tabs prednisone 20 mg tablet 60 mg PO DAILY 5 days #15 tabs 12/19/21 Allergies Allergy/AdvReac Type Severity Reaction Status Date / Time metoclopramide [From REGLAN] Allergy Intermediate AGITATION Verified 04/17/21 12:52 prochlorperazine Allergy Intermediate AGITATION Verified 04/17/21 12:52 [From COMPAZINE] diphenhydramine AdvReac Intermediate AGITATION Verified 04/17/21 12:52 [From BENADRYL] Review of Systems Constitutional: Constitutional: Denies body ache(s), Denies chills, Denies fatigue, Denies fever(s), Denies headache(s), Denies malaise and Denies weakness Eyes: Eyes: Denies diplopia ENT: Denies vertigo, Denies dizziness, Denies otalgia, Denies headache(s), Denies mouth pain, Denies post nasal drip, Denies sinus pain, Denies sinus pressure, Denies sore throat and Denies throat swelling Cardiovascular: Cardiovascular: Denies chest pain, Denies syncope, Denies leg edema, Denies lightheadedness, Denies Loss of Consciousness, Denies palpitations and Denies dyspnea Respiratory: Respiratory: Denies chest congestion, Denies cough and Denies dyspnea Gastrointestinal: Gastrointestinal: Denies abdominal pain, Denies hematochezia, Denies constipation, Denies fecal incontinence, Denies diarrhea and Denies vomiting Genitourinary: Genitourinary: Denies urinary hesitancy and Denies urinary incontinence Musculoskeletal: Musculoskeletal: Reports back pain, Reports numbness and Reports radiating pain into limb Neurologic: Denies confusion, Denies vertigo, Denies dizziness, Denies syncope, Denies headache(s), Reports numbness and Denies weakness Psychiatric: Psychiatric: Denies anxiety, Denies confusion and Denies depression Endocrine: Endocrine: Denies fatigue and Denies palpitations Allergic/Immunologic: Allergic/Immunologic: Denies throat swelling PMFSH Past Medical History Medical History Afib Anxiety Depression GERD (gastroesophageal reflux disease) Kidney stone Migraine Pneumonia Surgical History Hx of appendectomy Hx of cholecystectomy Social History Social History Alcohol intake: never Patient Tobacco Use Status: Never used Tobacco Substance Use Type: Marijuana Advance Directives: No Advance Directives Information Provided: No Advance Directives Date on File: 05/01/20 Physical Exam Vital Signs: Vital Signs: Last Vital Signs Temp 98.5 F 12/19/21 13:02 Pulse 94 12/19/21 13:02 Resp 18 12/19/21 13:02 BP 167/83 H 12/19/21 13:02 Pulse Ox 98 12/19/21 13:02 O2 Del Method 12/19/21 13:02 BMI result Body Mass Index 31.7 Const: General: No confusion Nutritional Appearance: well nourished Orientation/consciousness: No confusion Limitations: no limitations HEENT: Head: Yes normal to inspection, Yes normocephalic and Yes atraumatic Ears: hearing grossly normal bilaterally, external ears normal, TM's normal bilaterally and EAC's normal General nose exam: Normal external nose present Face and sinus: Yes normal facial exam and Yes sinuses nontender Mouth: Normal oral and palatal mucosa present Throat: Yes posterior oropharynx normal Eyes: Conjunctivae: conjunctivae normal Pupils: Equal, round and reactive pupils present EOM: EOMs intact bilaterally Neck: Neck: Yes full ROM, Yes no lymphadenopathy and Yes supple Resp: Effort & Inspection: normal respiratory effort and able to speak in complete sentences Auscultation: clear to auscultation bilaterally, no crackles, no rales, no rhonchi and no wheezes Cardio: Rate: regular rate Rhythm: regular rhythm Heart sounds: S1 normal heart sound present and S2 normal heart sound present GI: Inspection: Yes normal to inspection Palpation (GI): Soft to palpation, nontender, no guarding and not rigid Percussion: Yes normal to percussion Auscultation: normal bowel sounds : General: Yes no CVA tenderness Back/Spine/Pelvis: Back: no CVA tenderness Cervical Spine: normal cervical lordosis, cervical ROM normal, No Cervical spine tenderness, No step off deformity and No cervical ROM abnormal Thoracic/Lumbar Spine: straight leg raise negative bilaterally, thoraco-lumbar spasm on the left, No thoracic spinal tenderness and No lumbar spinal tenderness Pelvis: buttock tenderness on the left Skin: General skin exam: no rashes or lesions noted Neuro: General: No confusion Cranial nerves: Yes Equal, round and reactive pupils present Extrem: General: Yes normal to inspection, Yes full ROM and Yes capillary refill normal Psych: Appearance: grossly normal Affect: normal affect Attitude: cooperative Thought process: Normal thought process present Course Course Course Narrative: 36-year-old male presents for acute on chronic low back pain for last 10 days. Patient is taking baclofen, ibuprofen, and tramadol, to no effect. On exam, patient has intact lower extremity sensation, pulses, motor strength, DTRs. He has no vertebral tenderness on his bony spine. When I push on patient's left buttock it elicits severe pain, with radicular pain going down his left leg. Will treat with prednisone, counseled patient to keep appointment with PCP, follow-up with Mom. Gave return precautions of sudden leg weakness, incontinence bowel or bladder, saddle or paresthesias, return to emergency room immediately. Patient verbalized agreement understanding Discharge Plan Discharge Clinical Impression: Sciatica of left side Patient Disposition: Home, Self-Care Instructions: Sciatica (ED) Additional Instructions: please keep your appointment with your primary care provider on Friday. Please take the prednisone I prescribed to her pharmacy, Starting today when you pick it up. After that, please take it in the morning with food. If you have sudden leg weakness, if you are incontinent of bowel or bladder, if you have numbness or tingling in your groin, or any other new or concerning symptoms, please return to ER Prescriptions: New prednisone 20 mg tablet 60 mg PO DAILY 5 Days Qty: 15 0RF No Action sumatriptan succinate 100 mg tablet 1 tab PO DAILY PRN (Reason: Migraine Headache) clonazepam [Klonopin] 0.5 mg tablet 1 tab PO QAM PRN (Reason: Anxiety) clonazepam 1 mg tablet 1 tab PO BEDTIME PRN (Reason: Anxiety) risperidone 0.5 mg tablet 1 tab PO DAILY verapamil 240 mg capsule,ext rel. pellets 24 hr 1 cap PO DAILY amoxicillin-pot clavulanate 875-125 mg tablet 1 tab PO BID bupropion HCl 300 mg tablet extended release 24 hr 1 tab PO QAM quetiapine 50 mg tablet 1 - 2 tab PO BEDTIME PRN (Reason: Sleep) ibuprofen 800 mg tablet 800 mg PO Q8H PRN (Reason: pain) Qty: 30 0RF baclofen 20 mg tablet 20 mg PO TID Qty: 20 0RF tramadol 50 mg tablet 50 - 100 mg PO Q4H PRN (Reason: pain) Qty: 20 0RF Interventions: ED Discharge Assessment Last Done: 12/19/21 15:29 Discharge Date/Time: 12/19/21 15:30
== END 2021-12-19 15:30 | disposition home or self-care (01) ==
PROVIDERS: Emergency Provider Emergency Medicine; PCP Internal Medicine
DX: M54.42 Lumbago with sciatica, left side (principal)
CPT/HCPCS: 99283

== ENCOUNTER 2022-01-18 10:06 | Emergency (ER) | payer OTHER, SELFPAY ==
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
[2022-01-18 10:09] VITALS: BP 148/97; PULSE 93; RESP 18; TEMP 36.3; O2SAT 97; BMI 31.0
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
== END 2022-01-18 14:07 | disposition home or self-care (01) ==
PROVIDERS: Emergency Provider Emergency Medicine; PCP Internal Medicine
DX: S39.012D Strain of muscle, fascia and tendon of lower back, subsequent encounter (principal); V43.52XD Car driver injured in collision with other type car in traffic accident, subsequent encounter
CPT/HCPCS: 71046; 99283

== ENCOUNTER 2022-04-02 22:44 | Emergency (ER) | payer OTHER, SELFPAY ==
[2022-04-02 23:45] VITALS: BP 165/107; PULSE 92; RESP 18; TEMP 37.2; O2SAT 97; BMI 31.0
[2022-04-03 01:41] VITALS: BP 162/98; PULSE 89; RESP 18; O2SAT 98
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
[2022-04-03] MEDS: LORazepam 1 MG TABLET PO (02:45)
[2022-04-03] MEDS: Ibuprofen 800 MG TABLET PO (02:45)
== END 2022-04-03 02:48 | disposition home or self-care (01) ==
PROVIDERS: Emergency Provider Emergency Medicine Emergency Medical Services; PCP Internal Medicine
DX: M54.50 Low back pain, unspecified (principal); I48.91 Unspecified atrial fibrillation; F12.90 Cannabis use, unspecified, uncomplicated; Z79.899 Other long term (current) drug therapy
CPT/HCPCS: 99283

== ENCOUNTER 2022-04-19 12:40 | Emergency (ER) | payer OTHER, SELFPAY ==
[2022-04-19 13:29] VITALS: BP 138/91; PULSE 93; RESP 19; TEMP 36.8; O2SAT 97; BMI 31.0
[2022-04-19] MEDS: Acetaminophen 325 MG TABLET 975 MG PO (13:33)
[2022-04-19 14:24] LABS: MANUAL DIFF FLAG NO
[2022-04-19 14:27] LABS: Basophils Absolute Auto 0.1 X10*3/uL (0.0-0.2); Basophils Percent Auto 0.8 % (0-2); Eosinophils Absolute Auto 0.1 X10*3/uL (0.0-0.4); Eosinophils Percent Auto 1.9 % (0-4); Hematocrit 42.5 % (42.0-52.0); Hemoglobin 14.2 g/dl (14.0-18.0); Imm Gran Abs Auto 0.02 X10*3/uL (0.00-0.03); Imm Gran Pct Auto 0.3 % (0.0-0.4); Lymphocytes Absolute Auto 1.9 X10*3/uL (1.2-4.9); Lymphocytes Percent Auto 30.4 % (20-40); Mean Corpuscular HGB Conc 33.4 g/dl (31.0-36.0); Mean Corpuscular Hemoglobin 26.7 pg (27.0-33.0); Mean Corpuscular Volume 79.9 fL (80.0-98.0); Monocytes Absolute Auto 0.5 X10*3/uL (0.1-1.2); Neutrophils Absolute Auto 3.7 x10*3/uL (2.0-8.3); Neutrophils Percent Auto 58.6 % (45-73); Platelet Count 270 X10*3/uL (160-400); Red Blood Count 5.32 X10*6/uL (4.60-5.80); Red Cell Distribution Width 13.6 % (11.0-16.0); White Blood Count 6.3 X10*3/uL (4.8-10.8)
[2022-04-19 14:33] LABS: Appearance Urine Clear; Color Urine Yellow; Glucose Urine UA Negative (Negative); Leukocyte Esterase Urine Negative (Negative); Nitrite Urine Negative (Negative); UMIC TRIGGER UACC YES; Urine Blood Trace (Negative); Urine Ketones Negative (Negative); Urine Protein Trace mg/dL (Neg-Trace)
[2022-04-19 14:40] LABS: Bacteria Urine None Seen (None Seen); Hyaline Casts Urine 0-2 /LPF (0-2); RBC Urine 0-2 /HPF (0-2); Squamous Epithelial Cell Urine 0-2 /HPF (0-2); WBC Urine 0-5 /HPF (0-5)
[2022-04-19 14:42] LABS: Anion Gap 13 (12-20); Blood Urea Nitrogen 10 mg/dL (9-16); Calcium 9.4 mg/dL (8.4-10.2); Carbon Dioxide 27 mmol/L (22-29); Chloride 105 mmol/L (96-108); Creatinine Clr Calc Pharmacy 123.9; Estimated Glomerular Filt Rate > 60; Glucose Random 99 mg/dL (60-115); Potassium 4.1 mmol/L (3.3-5.1); Sodium 141 mmol/L (135-145)
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
[2022-04-19 21:32] VITALS: BP 158/83; PULSE 95; RESP 22; TEMP 36.7; O2SAT 99
[2022-04-19] MEDS: Ketorolac Tromethamine 15 MG/ML VIAL IVPUSH (21:37)
[2022-04-19] MEDS: ondansetron HCL 4 MG/2 ML VIAL IVPUSH (21:37)
[2022-04-19] MEDS: 0.9 % Sodium Chloride 1,000 ML 999 ML IV (21:37)
[2022-04-19 23:14] VITALS: BP 132/94; PULSE 78; RESP 18; TEMP 36.7; O2SAT 98
[2022-04-19 23:15] VITALS: RESP 18
[2022-04-19] MEDS: Morphine Sulfate 4 MG/ML CARTRIDGE IVPUSH (23:15)
[2022-04-19 23:19] LABS: Alanine Aminotransferase 27 U/L (0-40); Albumin Level 4.5 g/dL (3.5-5.0); Alkaline Phosphatase 155 U/L (39-117); Aspartate Amino Transferase 15 U/L (5-37); Bilirubin Direct < 0.2 mg/dL (0.0-0.5); Bilirubin Total 0.4 mg/dL (0.0-1.0); Lipase 15 U/L (8-78); Total Protein 7.2 g/dL (6.5-8.0)
== END 2022-04-20 00:02 | disposition home or self-care (01) ==
PROVIDERS: Emergency Provider Student in an Organized Health Care Education/Training Program
DX: R10.9 Unspecified abdominal pain (principal); F33.1 Major depressive disorder, recurrent, moderate; G43.909 Migraine, unspecified, not intractable, without status migrainosus; R11.2 Nausea with vomiting, unspecified; Z20.822 Contact with and (suspected) exposure to COVID-19; Z79.899 Other long term (current) drug therapy
CPT/HCPCS: 36415; 74176; 80048; 80076; 81001; 83690; 85025; 96361; 96374; 96375; 99284; J1885; J2270; J2405

== ENCOUNTER 2022-08-22 12:10 | Emergency (ER) | payer OTHER, SELFPAY ==
--- NOTE | ~2022-08-22 | XR_ITS ---
EXAMINATION: XR LUMBOSACRAL SPINE CLINICAL INFORMATION: L3-L4 pain. COMPARISON: CT abdomen/pelvis dated 04/19/2022. TECHNIQUE: Three views of the lumbosacral spine. FINDINGS: There appear to be small accessory ribs on the L1 vertebral body as well as partial lumbarization of the S1 vertebral body. Findings are consistent with transitional anatomy and the examination is labeled with an arrow indicating the L1 vertebral body for the purposes of this examination. Anterior endplate compression deformity of L1, unchanged when compared to the prior CT. No acute fracture or subluxation. No loss of intervertebral disc height. No concerning lytic or blastic osseous lesion. Right upper quadrant surgical clips. XR/XR lumbar spine 2-3V IMPRESSION: 1. 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 2. Anterior endplate compression deformity of L1, unchanged when compared to the prior CT. 3. No new fracture or subluxation.
[2022-08-22 12:24] VITALS: BP 138/87; PULSE 81; RESP 19; TEMP 36.2; O2SAT 97; BMI 32.3
--- NOTE | 2022-08-22 12:25 | ED.BACK ---
HPI - Back Pain/Injury General Chief Complaint: Back Pain/Injury <SHIVANI Johnson Last Filed: 08/22/22 12:28> Stated Complaint: lower back pain <SHIVANI Johnson Last Filed: 08/22/22 12:28> Time Seen by Provider: 08/22/22 14:30 <SHIVANI Johnson Last Filed: 08/22/22 12:28> Source: patient <SHIVANI Reynoso Last Filed: 08/22/22 19:11> Mode of arrival: ambulatory <SHIVANI Reynoso Last Filed: 08/22/22 19:11> History of Present Illness HPI Narrative: 36-year-old male with a past medical history of AFib, anxiety, depression, GERD, renal stones, presenting to the ED complaining of low back pain radiating down right lower extremity x few days s/p picking of 40-50 lb cat litter back and twisting back. Denies direct injury/ trauma or fall. Pain worse with movement and palpation. Denies numbness, tingling, weakness, urinary incontinence/ retention, fever, history of IVDA <SHIVANI Reynoso Last Filed: 08/22/22 19:11> MD elicited complaint: back pain <SHIVANI Reynoso Last Filed: 08/22/22 19:11> Onset (ago): day(s) <SHIVANI Reynoso Last Filed: 08/22/22 19:11> Related Data Home Medications: Home Medications Medication Instructions Recorded Confirmed amoxicillin 875 mg-potassium 1 tab PO BID 10/19/21 10/19/21 clavulanate 125 mg tablet bupropion HCl 300 mg 24 hr tablet, 1 tab PO QAM 10/19/21 10/19/21 extended release clonazepam 0.5 mg tablet (Klonopin) 1 tab PO QAM PRN Anxiety 10/19/21 10/19/21 clonazepam 1 mg tablet 1 tab PO BEDTIME PRN Anxiety 10/19/21 10/19/21 quetiapine 50 mg tablet 1 - 2 tab PO BEDTIME PRN Sleep 10/19/21 10/19/21 risperidone 0.5 mg tablet 1 tab PO DAILY 10/19/21 10/19/21 sumatriptan succinate 100 mg tablet 1 tab PO DAILY PRN Migraine 10/19/21 10/19/21 Headache verapamil 240 mg 24 hr 1 cap PO DAILY 10/19/21 10/19/21 capsule,extended release Previous Rx's Medication Instructions Recorded baclofen 20 mg tablet 20 mg PO TID #20 tabs 12/13/21 ibuprofen 800 mg tablet 800 mg PO Q8H PRN pain #30 tabs 12/13/21 tramadol 50 mg tablet 50 - 100 mg PO Q4H PRN pain #20 12/13/21 tabs prednisone 20 mg tablet 60 mg PO DAILY 5 days #15 tabs 12/19/21 cyclobenzaprine 5 mg tablet 5 mg PO TID PRN muscle spasm #10 01/18/22 tabs oxycodone 5 mg tablet 5 mg PO Q6H PRN pain #7 tabs 01/18/22 cyclobenzaprine 10 mg tablet 10 mg PO TID PRN pain #14 tabs 04/03/22 ibuprofen 400 mg tablet 400 mg PO Q6H PRN pain #20 tabs 04/03/22 oxycodone 5 mg tablet 5 mg PO Q8H PRN pain #7 tabs 04/03/22 ondansetron 4 mg disintegrating 4 mg PO Q6H #14 tabs 04/19/22 tablet acetaminophen 500 mg tablet 500 mg PO Q6H PRN fever or pain 08/22/22 (Tylenol Extra Strength) #14 tabs cyclobenzaprine 5 mg tablet 5 mg PO Q8H PRN pain (scale score 08/22/22 7-10) 5 days #14 tabs lidocaine 5 % topical patch 1 patch topical DAILY PRN pain #30 08/22/22 (Lidoderm) ea naproxen 500 mg tablet 500 mg PO BID PRN pain 10 days #20 08/22/22 tabs <SHIVANI Johnson - Last Filed: 08/22/22 12:28> Allergies/Adverse Reactions: Allergies Allergy/AdvReac Type Severity Reaction Status Date / Time metoclopramide [From REGLAN] Allergy Intermediate AGITATION Verified 04/17/21 12:52 prochlorperazine Allergy Intermediate AGITATION Verified 04/17/21 12:52 [From COMPAZINE] diphenhydramine AdvReac Intermediate AGITATION Verified 04/17/21 12:52 [facility] <SHIVANI Johnson - Last Filed: 08/22/22 12:28> Review of Systems Review of Systems: Constitutional: No Fever, No Chills ENT/Mouth: No Ear Pain, No Nasal Congestion, No sore throat, No Rhinorrhea, No Swallowing Difficulty Cardiovascular: No Chest Pain, No SOB Respiratory: No Cough, No Sputum Gastrointestinal: No Nausea, No Vomiting, No Diarrhea, No Constipation, No Abdominal pain Genitourinary: No Dysuria, No Urinary Frequency, No Hematuria, No Urinary Incontinence/retention, No Flank Pain Musculoskeletal: +joint pain, No Myalgias, No Joint Swelling Skin: No Skin Lesions, No rash Neuro: No Weakness, No Numbness, No Paresthesias <SHIVANI Reynoso - Last Filed: 08/22/22 19:11> Yes all other systems are reviewed and are negative <SHIVANI Reynoso - Last Filed: 08/22/22 19:11> Constitutional: Constitutional: Reports as per HPI <SHIVANI Reynoso - Last Filed: 08/22/22 19:11> [facility] Past Medical History Attestation statement: The following information was validated with the patient. <SHIVANI Reynoso - Last Filed: 08/22/22 19:11> Medical History: Medical History Afib Anxiety Depression GERD (gastroesophageal reflux disease) Kidney stone Migraine Pneumonia <SHIVANI Johnson - Last Filed: 08/22/22 12:28> Surgical History: Surgical History Hx of appendectomy Hx of cholecystectomy <SHIVANI Johnson - Last Filed: 08/22/22 12:28> Social History Social History: Social History Alcohol intake: never Patient Tobacco Use Status: Never used Tobacco Substance Use Type: Marijuana Advance Directives: No Advance Directives Date on File: 05/01/20 <SHIVANI Johnson - Last Filed: 08/22/22 12:28> Physical Exam Vital Signs: Vital Signs: Last Vital Signs Temp 97.1 F 08/22/22 12:24 Pulse 81 08/22/22 12:24 Resp 19 08/22/22 12:24 BP 138/87 08/22/22 12:24 Pulse Ox 97 08/22/22 12:24 O2 Del Method 08/22/22 12:24 BMI result Body Mass Index 32.3 <SHIVANI Johnson - Last Filed: 08/22/22 12:28> Vital Signs: Last Vital Signs Temp 97.1 F 08/22/22 12:24 Pulse 81 08/22/22 12:24 Resp 19 08/22/22 12:24 BP 138/87 08/22/22 12:24 Pulse Ox 97 08/22/22 12:24 O2 Del Method 08/22/22 12:24 BMI result Body Mass Index 32.3 <SHIVANI Reynoso - Last Filed: 08/22/22 19:11> Vital Signs: Last Vital Signs Temp 97.1 F 08/22/22 12:24 Pulse 81 08/22/22 12:24 Resp 08/22/22 12:24 BP 138/87 08/22/22 12:24 Pulse Ox 97 08/22/22 12:24 O2 Del Method 08/22/22 12:24 BMI result Body Mass Index 32.3 <Zechariah Hughes MD - Last Filed: 08/23/22 21:11> Const: General: cooperative, healthy appearing, comfortable and no acute distress <SHIVANI Reynoso - Last Filed: 08/22/22 19:11> Orientation/consciousness: patient oriented x3 <SHIVANI Reynoso - Last Filed: 08/22/22 19:11> Limitations: no limitations <SHIVANI Reynoso - Last Filed: 08/22/22 19:11> HEENT: Head: Yes normal to inspection and Yes atraumatic <SHIVANI Reynoso - Last Filed: 08/22/22 19:11> Ears: hearing grossly normal bilaterally <SHIVANI Reynoso - Last Filed: 08/22/22 19:11> General nose exam: Normal external nose present <SHIVANI Reynoso - Last Filed: 08/22/22 19:11> Face and sinus: Yes normal facial exam <Bessie Mancinitammie PA - Last Filed: 08/22/22 19:11> Eyes: General: appearance normal, both eyes and all related structures <Bessie Livetammie PA - Last Filed: 08/22/22 19:11> EOM: EOMs intact bilaterally <Bessie Livetammie PA - Last Filed: 08/22/22 19:11> Neck: Neck: Yes normal visual inspection and Yes no meningeal signs <Bessie Livetammie PA - Last Filed: 08/22/22 19:11> Resp: Effort & Inspection: normal respiratory effort and no respiratory distress <Bessie Livetammie PA - Last Filed: 08/22/22 19:11> Cardio: Rate: regular rate <Bessie Livetammie PA - Last Filed: 08/22/22 19:11> Heart sounds: S1 normal heart sound present and S2 normal heart sound present <Bessie Livetammie PA - Last Filed: 08/22/22 19:11> GI: Inspection: Yes normal to inspection <Bessie Livetammie PA - Last Filed: 08/22/22 19:11> Palpation (GI): Soft to palpation, nontender, no guarding and not rigid <Bessie Livetammie PA - Last Filed: 08/22/22 19:11> : General: Yes no CVA tenderness <Bessie Livetammie PA - Last Filed: 08/22/22 19:11> Back/Spine/Pelvis: Other: No midline thoracic/lumbar spinous tenderness/step-off or deformity. + bilateral lumbar paraspinal swelling/ probable muscle spasming and tenderness to palpation. No ecchymosis/erythema. <Bessie Livetammie PA - Last Filed: 08/22/22 19:11> Back: no CVA tenderness <Bessie Poultammie PA - Last Filed: 08/22/22 19:11> Skin: Rashes: no rashes <Bessie Poultammie PA - Last Filed: 08/22/22 19:11> Wounds: no wounds <Bessie Barrow PA - Last Filed: 08/22/22 19:11> Neuro: Other: Strength intact throughout. No saddle anesthesia. Sensation intact to light touch. Neurovascular intact distally <SHIVANI Reynoso - Last Filed: 08/22/22 19:11> General: patient oriented x3, gait normal, tone normal, moves all extremities, no meningeal signs and no focal motor deficits <SHIVANI Reynoso - Last Filed: 08/22/22 19:11> Gait exam (Neuro): Normal gait present <SHIVANI Reynoso Last Filed: 08/22/22 19:11> Motor exam (neuro): 5/5 motor strength present throughout <SHIVANI Reynoso Last Filed: 08/22/22 19:11> Extrem: General: Yes normal to inspection <SHIVANI Reynoso Last Filed: 08/22/22 19:11> Course Course Course Narrative: This is an RME: Additional HPI, ROS, PE not included below will be deferred to primary provider. 36 year old male presents w/ midline lumbar pain that radiates down right butt/hip area X1 week tells me that this started after lifting 40 lb cat liter and twisting. No hx of IVDA, malignancy. No red flag sx of back pain. Denies blunt trauma, numbness and tingling. PE w/ Lumbar back pain to midline around L3-4. No saddle paresthesias. Ambulatory. Plan- imaging. HX of L1 fx in december <Seth Kim PA - Last Filed: 08/22/22 12:28> This is an RME: Additional HPI, ROS, PE not included below will be deferred to primary provider. 36 year old male presents w/ midline lumbar pain that radiates down right butt/hip area X1 week tells me that this started after lifting 40 lb cat liter and twisting. No hx of IVDA, malignancy. No red flag sx of back pain. Denies blunt trauma, numbness and tingling. PE w/ Lumbar back pain to midline around L3-4. No saddle paresthesias. Ambulatory. Plan- imaging. HX of L1 fx in december XR lumbar spine 2-3V IMPRESSION: 1. 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 ? 2. Anterior endplate compression deformity of L1, unchanged when compared to the prior CT. ? 3. No new fracture or subluxation. -patient reports symptomatic improvement after IM Toradol given > Results discussed with patient including worrisome signs and symptoms and strict return precautions, and when to return to the emergency department. They verbalized understanding and feel safe for discharge at this time. <SHIVANI Reynoso - Last Filed: 08/22/22 19:11> Medications Administered Discontinued Medications Generic Name Dose Route Start Last Admin Trade Name Freq PRN Reason Stop Dose Admin Ketorolac Tromethamine 30 mg 08/22/22 12:30 08/22/22 14:37 Ketorolac Tromethamine 15 Mg/Ml Vial IM 08/22/22 12:31 30 mg ONCE ONE Administration <SHIVANI Johnson - Last Filed: 08/22/22 12:28> Medications Administered Discontinued Medications Generic Name Dose Route Start Last Admin Trade Name Freq PRN Reason Stop Dose Admin Ketorolac Tromethamine 30 mg 08/22/22 12:30 08/22/22 14:37 Ketorolac Tromethamine 15 Mg/Ml Vial IM 08/22/22 12:31 30 mg ONCE ONE Administration <SHIVANI Reynoso - Last Filed: 08/22/22 19:11> Medications Administered Discontinued Medications Generic Name Dose Route Start Last Admin Trade Name Freq PRN Reason Stop Dose Admin Ketorolac Tromethamine 30 mg 08/22/22 12:30 08/22/22 14:37 Ketorolac Tromethamine 15 Mg/Ml Vial IM 08/22/22 12:31 30 mg ONCE ONE Administration <Zechariah Hughes MD - Last Filed: 08/23/22 21:11> Medical Decision Making Medical Decision Making MDM Narrative: 36-year-old male with a past medical history of AFib, anxiety, depression, GERD, renal stones, presenting to the ED complaining of low back pain radiating down right lower extremity x few days s/p picking of 40-50 lb cat litter back and twisting back. On exam vital signs stable, NAD, nontoxic appearing physical exam as above, no midline spinous tenderness or red flag symptoms parent concern for MSK pain / strain and muscle spasming. Low suspicion for cauda equina, cord compression, epidural abscess plan: X-rays ordered in triage, pain control Please refer to course for remaining clinical decision making, interpretation of labs/imaging results, and discussions with consultants and/or family members. <SHIVANI Reynoso - Last Filed: 08/22/22 19:11> Differential Diagnosis Differential Diagnoses: The differential diagnosis associated with the presentation includes <SHIVANI Reynoso - Last Filed: 08/22/22 19:11> as above <SHIVANI Reynoso - Last Filed: 08/22/22 19:11> Radiology Impression Discussion of test interpretation with radiology: I have reviewed the radiologist's reading. <SHIVANI Reynoso - Last Filed: 08/22/22 19:11> Prescription Management I considered prescription management with: Pain Medication <SHIVANI Reynoso - Last Filed: 08/22/22 19:11> Attestation Attending Attestation: I reviewed [employer]ER/PA/Resident note, assessment and plan. I agree with the documentation, assessment and plan unless otherwise stated. <Zechariah Hughes MD - Last Filed: 08/23/22 21:11> Discharge Plan Discharge Clinical Impression: Muscle spasm, Low back pain <SHIVANI Johnson - Last Filed: 08/22/22 12:28> Patient Disposition: Home, Self-Care <SHIVANI Johnson - Last Filed: 08/22/22 12:28> Instructions: Acute Low Back Pain (ED), Muscle Spasm (ED) <SHIVANI Johnson - Last Filed: 08/22/22 12:28> Additional Instructions: Your pain is likely musculoskeletal Flexeril is a muscle relaxer, take at night as it makes you drowsy, do not drive, drink alcohol, or operate machinery while taking it Naproxen as an anti-inflammatory / pain medication, take with food Lidoderm patches are numbing patches, apply to painful area In addition take Tylenol at home If symptoms persist or worsen, pain becomes unbearable, you developed urinary retention or incontinence, or weakness return to the ED <SHIVANI Johnson - Last Filed: 08/22/22 12:28> Prescriptions: New acetaminophen [Tylenol Extra Strength] 500 mg tablet 500 mg PO Q6H PRN (Reason: fever or pain) Qty: 14 0RF lidocaine [Lidoderm] 5 % adhesive patch,medicated 1 patch topical DAILY MDD remove after 12 hours PRN (Reason: pain) Qty: 30 0RF Rx Instructions: leave on most painful area for up to 12 hrs naproxen 500 mg tablet 500 mg PO BID PRN (Reason: pain) 10 Days Qty: 20 0RF cyclobenzaprine 5 mg tablet 5 mg PO Q8H PRN (Reason: pain (scale score 7-10)) 5 Days Qty: 14 0RF No Action sumatriptan succinate 100 mg tablet 1 tab PO DAILY PRN (Reason: Migraine Headache) clonazepam [Klonopin] 0.5 mg tablet 1 tab PO QAM PRN (Reason: Anxiety) clonazepam 1 mg tablet 1 tab PO BEDTIME PRN (Reason: Anxiety) risperidone 0.5 mg tablet 1 tab PO DAILY verapamil 240 mg capsule,ext rel. pellets 24 hr 1 cap PO DAILY amoxicillin-pot clavulanate 875-125 mg tablet 1 tab PO BID bupropion HCl 300 mg tablet extended release 24 hr 1 tab PO QAM quetiapine 50 mg tablet 1 - 2 tab PO BEDTIME PRN (Reason: Sleep) prednisone 20 mg tablet 60 mg PO DAILY 5 Days Qty: 15 0RF cyclobenzaprine 5 mg tablet 5 mg PO TID PRN (Reason: muscle spasm) Qty: 10 0RF oxycodone 5 mg tablet 5 mg PO Q6H PRN (Reason: pain) Qty: 7 0RF Rx Instructions: Partial Fill upon patient request. Narcotic, no driving for 6 hours after taking this medication ibuprofen 800 mg tablet 800 mg PO Q8H PRN (Reason: pain) Qty: 30 0RF baclofen 20 mg tablet 20 mg PO TID Qty: 20 0RF tramadol 50 mg tablet 50 - 100 mg PO Q4H PRN (Reason: pain) Qty: 20 0RF cyclobenzaprine 10 mg tablet 10 mg PO TID PRN (Reason: pain) Qty: 14 0RF ibuprofen 400 mg tablet 400 mg PO Q6H PRN (Reason: pain) Qty: 20 0RF oxycodone 5 mg tablet 5 mg PO Q8H PRN (Reason: pain) Qty: 7 0RF Rx Instructions: Partial Fill upon patient request. ondansetron 4 mg tablet,disintegrating 4 mg PO Q6H Qty: 14 0RF <SHIVANI Johnson - Last Filed: 08/22/22 12:28> Referrals: Physician,Unknown J [Primary Care Provider] - 5 days <SHIVNAI Johnson - Last Filed: 08/22/22 12:28> Interventions: ED Discharge Assessment Last Done: 08/22/22 15:48 <SHIVANI Johnson - Last Filed: 08/22/22 12:28> Discharge Date/Time: 08/22/22 15:49 <SHIVANI Johnson - Last Filed: 08/22/22 12:28>
[2022-08-22] MEDS: Ketorolac Tromethamine 15 MG/ML VIAL 30 MG IM (14:37)
== END 2022-08-22 15:49 | disposition home or self-care (01) ==
PROVIDERS: Emergency Provider Emergency Medicine
DX: M62.830 Muscle spasm of back (principal); M54.50 Low back pain, unspecified; I48.91 Unspecified atrial fibrillation; F12.90 Cannabis use, unspecified, uncomplicated; Z79.899 Other long term (current) drug therapy
CPT/HCPCS: 72100; 96372; 99283; 99284; J1885

== ENCOUNTER 2022-09-25 12:07 | Emergency (ER) | payer OTHER, SELFPAY ==
--- NOTE | ~2022-09-25 | XR_ITS ---
EXAMINATION: XR KNEE, LEFT CLINICAL INFORMATION: Twisting injury COMPARISON: X-ray 04/17/2021 TECHNIQUE: 5 views of the left knee. FINDINGS: No visible acute fracture or dislocation. No joint effusion. Alignment is anatomic. Joint spaces are well maintained. No abnormal soft tissue calcification. XR/XR knee LT 3V IMPRESSION: No radiographically evident acute osseous abnormality.
--- NOTE | 2022-09-25 12:23 | ED.LOWEXIN ---
HPI - Extremity Injury (Lower) General Chief Complaint: Extremity Injury, Lower <SHIVANI Reynoso - Last Filed: 09/25/22 12:28> Stated Complaint: L knee inj <SHIVANI Reynoso - Last Filed: 09/25/22 12:28> Time Seen by Provider: 09/25/22 13:11 <SHIVANI Reynoso - Last Filed: 09/25/22 12:28> History of Present Illness HPI Narrative: Patient complains of left knee pain after he twisted it coming down stairs several days ago, he has been limping since He is able to walk on it, there is no other injury no head injury no headache no loss of consciousness no neck pain no numbness weakness or tingling no chest pain no shortness of breath no abdominal pain, no preceding dizziness, he did not faint never had confusion he remembers everything <SHIVANI Smith - Last Filed: 09/29/22 12:01> Related Data Home Medications: Home Medications Medication Instructions Recorded Confirmed amoxicillin 875 mg-potassium 1 tab PO BID 10/19/21 10/19/21 clavulanate 125 mg tablet bupropion HCl 300 mg 24 hr tablet, 1 tab PO QAM 10/19/21 10/19/21 extended release clonazepam 0.5 mg tablet (Klonopin) 1 tab PO QAM PRN Anxiety 10/19/21 10/19/21 clonazepam 1 mg tablet 1 tab PO BEDTIME PRN Anxiety 10/19/21 10/19/21 quetiapine 50 mg tablet 1 - 2 tab PO BEDTIME PRN Sleep 10/19/21 10/19/21 risperidone 0.5 mg tablet 1 tab PO DAILY 10/19/21 10/19/21 sumatriptan succinate 100 mg tablet 1 tab PO DAILY PRN Migraine 10/19/21 10/19/21 Headache verapamil 240 mg 24 hr 1 cap PO DAILY 10/19/21 10/19/21 capsule,extended release Previous Rx's Medication Instructions Recorded baclofen 20 mg tablet 20 mg PO TID #20 tabs 12/13/21 ibuprofen 800 mg tablet 800 mg PO Q8H PRN pain #30 tabs 12/13/21 tramadol 50 mg tablet 50 - 100 mg PO Q4H PRN pain #20 12/13/21 tabs prednisone 20 mg tablet 60 mg PO DAILY 5 days #15 tabs 12/19/21 cyclobenzaprine 5 mg tablet 5 mg PO TID PRN muscle spasm #10 01/18/22 tabs oxycodone 5 mg tablet 5 mg PO Q6H PRN pain #7 tabs 01/18/22 cyclobenzaprine 10 mg tablet 10 mg PO TID PRN pain #14 tabs 04/03/22 ibuprofen 400 mg tablet 400 mg PO Q6H PRN pain #20 tabs 04/03/22 oxycodone 5 mg tablet 5 mg PO Q8H PRN pain #7 tabs 04/03/22 ondansetron 4 mg disintegrating 4 mg PO Q6H #14 tabs 04/19/22 tablet acetaminophen 500 mg tablet 500 mg PO Q6H PRN fever or pain 08/22/22 (Tylenol Extra Strength) #14 tabs cyclobenzaprine 5 mg tablet 5 mg PO Q8H PRN pain (scale score 08/22/22 7-10) 5 days #14 tabs lidocaine 5 % topical patch 1 patch topical DAILY PRN pain #30 08/22/22 (Lidoderm) ea naproxen 500 mg tablet 500 mg PO BID PRN pain 10 days #20 08/22/22 tabs ibuprofen 600 mg tablet 600 mg PO Q6H PRN pain #20 tabs 09/25/22 oxycodone 5 mg tablet 5 mg PO Q6H PRN pain #7 tabs 09/25/22 <SHIVANI Reynoso - Last Filed: 09/25/22 12:28> Allergies/Adverse Reactions: Allergies Allergy/AdvReac Type Severity Reaction Status Date / Time metoclopramide [From REGLAN] Allergy Intermediate AGITATION Verified 09/25/22 12:24 prochlorperazine Allergy Intermediate AGITATION Verified 09/25/22 12:24 [From COMPAZINE] diphenhydramine AdvReac Intermediate AGITATION Verified 09/25/22 12:24 [From BENADRYL] <SHIVANI Reynoso - Last Filed: 09/25/22 12:28> [facility] Past Medical History Source: nursing notes reviewed <SHIVANI Smith - Last Filed: 09/29/22 12:01> Medical History: Medical History Afib Anxiety Depression GERD (gastroesophageal reflux disease) Kidney stone Migraine Pneumonia <SHIVANI Reynoso - Last Filed: 09/25/22 12:28> Surgical History: Surgical History Hx of appendectomy Hx of cholecystectomy <SHIVANI Reynoso - Last Filed: 09/25/22 12:28> Social History Social History: Social History Alcohol intake: never Patient Tobacco Use Status: Never used Tobacco Substance Use Type: Marijuana Advance Directives: Yes Advance Directives Information Provided: No Advance Directives on File: No Advance Directives Date on File: 05/01/20 <SHIVANI Reynoso - Last Filed: 09/25/22 12:28> Physical Exam Vital Signs: Vital Signs: Last Vital Signs Temp 98.2 F 09/25/22 12:25 Pulse 107 H 09/25/22 12:25 Resp 16 09/25/22 12:25 BP 157/93 H 09/25/22 12:25 Pulse Ox 98 09/25/22 12:25 O2 Del Method 09/25/22 12:25 BMI result Body Mass Index 33.2 <SHIVANI Reynoso - Last Filed: 09/25/22 12:28> Vital Signs: Last Vital Signs Temp 98.2 F 09/25/22 12:25 Pulse 107 H 09/25/22 12:25 Resp 16 09/25/22 12:25 BP 157/93 H 09/25/22 12:25 Pulse Ox 98 09/25/22 12:25 O2 Del Method 09/25/22 12:25 BMI result Body Mass Index 33.2 <SHIVANI Smith - Last Filed: 09/29/22 12:01> General appearance no acute distress The head is normocephalic atraumatic Neck is supple Respiratory no distress The back full range of motion Extremities the left knee has some mild swelling, there is tenderness on both medial and lateral joint lines, strict patient is able to do straight leg raise, no obvious ligamentous laxity, neurovascular intact distal, no effusion no redness no warmth <SHIVANI Smith - Last Filed: 09/29/22 12:01> Course Course Course Narrative: YENY--36-year-old male with a past medical history of AFib, anxiety, depression, GERD, renal stones, presenting to the ED complaining of left knee pain s/p twisting injury while walking down the stairs 3-4 days ago. L knee with mild medial swelling and ttp. Flexion mildly limited 2/2 pain. extension intact XRs ordered <SHIVANI Reynoso - Last Filed: 09/25/22 12:28> LILOE--36-year-old male with a past medical history of AFib, anxiety, depression, GERD, renal stones, presenting to the ED complaining of left knee pain s/p twisting injury while walking down the stairs 3-4 days ago. L knee with mild medial swelling and ttp. Flexion mildly limited 2/2 pain. extension intact X-ray of the left knee was negative, patient was given an Juan Jose bandage and was able to limp comfortably from the Department any will follow with orthopedics for knee sprain <SHIVANI Smith - Last Filed: 09/29/22 12:01> Discharge Plan Discharge Clinical Impression: Left knee sprain <SHIVANI Reynoso - Last Filed: 09/25/22 12:28> Patient Disposition: Home, Self-Care <SHIVANI Reynoso - Last Filed: 09/25/22 12:28> Additional Instructions: X-ray did not show any broken bones You have a sprained knee, possibly torn cartilage in the knee This may get better on its own over coming weeks, but no way to tell now Follow with orthopedist and if it is not improving they will do further evaluation Return any time if worse <SHIVANI Reynoso - Last Filed: 09/25/22 12:28> Prescriptions: New oxycodone 5 mg tablet 5 mg PO Q6H PRN (Reason: pain) Qty: 7 0RF Rx Instructions: Partial Fill upon patient request. ibuprofen 600 mg tablet 600 mg PO Q6H PRN (Reason: pain) Qty: 20 0RF No Action sumatriptan succinate 100 mg tablet 1 tab PO DAILY PRN (Reason: Migraine Headache) clonazepam [Klonopin] 0.5 mg tablet 1 tab PO QAM PRN (Reason: Anxiety) clonazepam 1 mg tablet 1 tab PO BEDTIME PRN (Reason: Anxiety) risperidone 0.5 mg tablet 1 tab PO DAILY verapamil 240 mg capsule,ext rel. pellets 24 hr 1 cap PO DAILY amoxicillin-pot clavulanate 875-125 mg tablet 1 tab PO BID bupropion HCl 300 mg tablet extended release 24 hr 1 tab PO QAM quetiapine 50 mg tablet 1 - 2 tab PO BEDTIME PRN (Reason: Sleep) prednisone 20 mg tablet 60 mg PO DAILY 5 Days Qty: 15 0RF cyclobenzaprine 5 mg tablet 5 mg PO TID PRN (Reason: muscle spasm) Qty: 10 0RF oxycodone 5 mg tablet 5 mg PO Q6H PRN (Reason: pain) Qty: 7 0RF Rx Instructions: Partial Fill upon patient request. Narcotic, no driving for 6 hours after taking this medication acetaminophen [Tylenol Extra Strength] 500 mg tablet 500 mg PO Q6H PRN (Reason: fever or pain) Qty: 14 0RF lidocaine [Lidoderm] 5 % adhesive patch,medicated 1 patch topical DAILY MDD remove after 12 hours PRN (Reason: pain) Qty: 30 0RF Rx Instructions: leave on most painful area for up to 12 hrs naproxen 500 mg tablet 500 mg PO BID PRN (Reason: pain) 10 Days Qty: 20 0RF cyclobenzaprine 5 mg tablet 5 mg PO Q8H PRN (Reason: pain (scale score 7-10)) 5 Days Qty: 14 0RF ibuprofen 800 mg tablet 800 mg PO Q8H PRN (Reason: pain) Qty: 30 0RF baclofen 20 mg tablet 20 mg PO TID Qty: 20 0RF tramadol 50 mg tablet 50 - 100 mg PO Q4H PRN (Reason: pain) Qty: 20 0RF cyclobenzaprine 10 mg tablet 10 mg PO TID PRN (Reason: pain) Qty: 14 0RF ibuprofen 400 mg tablet 400 mg PO Q6H PRN (Reason: pain) Qty: 20 0RF oxycodone 5 mg tablet 5 mg PO Q8H PRN (Reason: pain) Qty: 7 0RF Rx Instructions: Partial Fill upon patient request. ondansetron 4 mg tablet,disintegrating 4 mg PO Q6H Qty: 14 0RF <SHIVANI Reynoso - Last Filed: 09/25/22 12:28> Referrals: Mitch Patel MD [Physician] - (Left knee sprain) <SHIVANI Reynoso - Last Filed: 09/25/22 12:28> Interventions: ED Discharge Assessment Last Done: 09/25/22 14:35 <SHIVANI Reynoso - Last Filed: 09/25/22 12:28> Discharge Date/Time: 09/25/22 14:35 <SHIVANI Reynoso - Last Filed: 09/25/22 12:28>
[2022-09-25 12:25] VITALS: BP 157/93; PULSE 107; RESP 16; TEMP 36.8; O2SAT 98; BMI 33.2
== END 2022-09-25 14:35 | disposition home or self-care (01) ==
PROVIDERS: Emergency Provider Emergency Medicine; PCP Internal Medicine
DX: S83.92XA Sprain of unspecified site of left knee, initial encounter (principal); X50.1XXA Overexertion from prolonged static or awkward postures, initial encounter; Y93.9 Activity, unspecified; Y92.9 Unspecified place or not applicable; Y99.9 Unspecified external cause status; Z79.899 Other long term (current) drug therapy
CPT/HCPCS: 73562; 99283

== ENCOUNTER 2022-10-02 07:42 | Outpatient (REF) | payer OTHER, SELFPAY ==
--- NOTE | ~2022-10-02 | XR_ITS ---
EXAMINATION: XR KNEE, LEFT CLINICAL INDICATION: Pain. COMPARISON: Left knee 09/25/2022. TECHNIQUE: Solitary sunrise view left knee. FINDINGS: There is maintained patellofemoral joint space. No bony erosive changes, fracture or dislocation. The soft tissues are normal. XR/XR knee LT 1V IMPRESSION: Unremarkable solitary sunrise view left knee.
== END 2022-10-02 07:43 | disposition home or self-care (01) ==
LOC: HO.HOSX 07:42
PROVIDERS: Visit Provider Physician Assistant
DX: M23.305 Other meniscus derangements, unspecified medial meniscus, unspecified knee (principal)
CPT/HCPCS: 73560; 99212

== ENCOUNTER 2022-10-31 18:57 | Outpatient (REF) | payer OTHER, SELFPAY ==
--- NOTE | ~2022-10-31 | MR_ITS ---
EXAMINATION: MR KNEE WITHOUT CONTRAST, LEFT CLINICAL INFORMATION: Injury, pain. COMPARISON: None available. TECHNIQUE: MRI of the knee without contrast was performed using routine sequences on a high-field scanner. FINDINGS: MENISCI: Medial Meniscus: Intact Lateral Meniscus: Intact LIGAMENTS: Cruciate: Intact Collateral: Mild thickening of the proximal MCL, from possible sprain. Intact LCL complex . EXTENSOR MECHANISM: Intact ARTICULAR CARTILAGE/BONE: Patellofemoral Compartment: Focus of cartilage heterogeneity and mild fissuring in the central trochlear, subchondral edema. Medial Compartment: No significant cartilage loss Lateral Compartment: No significant cartilage loss No fracture. JOINT FLUID AND BURSAE: Small effusion. Small Ritter's cyst. MR/MR knee LT wo con IMPRESSION: 1. Menisci appear intact without evidence of discrete tear. 2. Possible mild proximal MCL sprain. 3. Mild chondromalacia in the femoral trochlea.. 4. Small effusion. Small Ritter's cyst.
== END 2022-10-31 18:58 | disposition home or self-care (01) ==
LOC: HO.MRI 18:57
PROVIDERS: PCP Internal Medicine; Visit Provider Physician Assistant
DX: M23.301 Other meniscus derangements, unspecified lateral meniscus, left knee (principal)
CPT/HCPCS: 73721

== ENCOUNTER → 2022-11-20 11:39 | Outpatient (BNVA) | payer OTHER, SELFPAY | PROVIDERS: PCP Internal Medicine; Visit Provider Physician Assistant | DX: S83.411D Sprain of medial collateral ligament of right knee, subsequent encounter (principal); M94.261 Chondromalacia, right knee | CPT/HCPCS: Q3014 ==

== ENCOUNTER → 2022-11-25 09:05 | Outpatient (BNVA) | payer OTHER, SELFPAY | PROVIDERS: PCP Internal Medicine; Visit Provider Physician Assistant | DX: M23.304 Other meniscus derangements, unspecified medial meniscus, left knee (principal) | CPT/HCPCS: 20610; 99212; J1040 ==

== ENCOUNTER 2023-02-06 15:02 | Emergency (ER) | payer OTHER, SELFPAY ==
--- NOTE | ~2023-02-06 | CT_ITS ---
EXAMINATION: CT HEAD WITHOUT CONTRAST CLINICAL INFORMATION: Headache COMPARISON: 04/17/2021 TECHNIQUE: Contiguous axial imaging was performed from the skull base to vertex without intravenous administration of contrast. This CT examination was performed using dose optimization techniques as appropriate, variously including the following: *Automated exposure control *Adjustment of mA and/or kV according to patient size (this includes techniques or standardized protocols for targeted exams where dose is matched to indication/reason for exam; i.e. extremities or head) *Use of iterative reconstruction technique DLP: 744 mGy-cm FINDINGS: There is no evidence of acute intracranial hemorrhage or edematous territorial infarction. Zuluaga-white matter differentiation is preserved. There is no abnormal attenuation within the brain parenchyma. The ventricles are normal in morphology and size. No evidence for obstructive hydrocephalus. No abnormal mass effect or midline shift. No extra-axial fluid collections. There is stable low-attenuation density seen in the posterior aspect of left parietal-temporal cortical/subcortical area without mass effect or interval change since MRI of 10/13/2019 and MRI from January 17 2011 No acute soft tissue or osseous abnormalities. The mastoid air cells and visualized paranasal sinuses are clear. CT/CT head/brain wo IV con IMPRESSION: No interval change no acute or intracranial pathology. Small indeterminate low-attenuation lesion in the posterior aspect of the left parietal/temporal cortical subcortical region.
[2023-02-06 16:22] VITALS: BP 157/104; PULSE 83; RESP 19; TEMP 36.3; O2SAT 99; BMI 34.7
--- NOTE | 2023-02-06 16:22 | ED.GENADULT ---
HPI - General Adult General Chief complaint: Headache Stated complaint: migraine Time Seen by Provider: 02/06/23 20:06 Source: patient Mode of arrival: ambulatory Limitations: no limitations History of Present Illness HPI narrative: Patient comes to the emergency room complaining of a severe headache that started 3 days ago. Patient states that he has been suffering of migraines for 7 years. Patient states that he usually takes Imitrex, ibuprofen 800 and Tylenol. Patient also takes verapamil to prevent migraines. Patient complaining of photophobia, nausea vomiting. Patient states that this migraine is worse than any others he has had. Patient denies any recent infections, no neck pain or stiffness. No URI or UTI symptoms Related Data Home Medications Medication Instructions Recorded Confirmed bupropion HCl 300 mg 24 hr tablet, 1 tab PO QAM 10/19/21 10/02/22 extended release clonazepam 0.5 mg tablet (Klonopin) 1 tab PO QAM PRN Anxiety 10/19/21 10/02/22 clonazepam 1 mg tablet 1 tab PO BEDTIME PRN Anxiety 10/19/21 10/02/22 risperidone 0.5 mg tablet 1 tab PO DAILY 10/19/21 10/02/22 sumatriptan succinate 100 mg tablet 1 tab PO DAILY PRN Migraine 10/19/21 10/02/22 Headache verapamil 240 mg 24 hr 1 cap PO DAILY 10/19/21 10/02/22 capsule,extended release quetiapine 100 mg tablet 100 mg PO BEDTIME 10/02/22 10/02/22 trazodone 100 mg tablet 100 mg PO BEDTIME 10/02/22 10/02/22 Previous Rx's Medication Instructions Recorded acetaminophen 500 mg tablet 500 mg PO Q6H PRN fever or pain 08/22/22 (Tylenol Extra Strength) #14 tabs naproxen 500 mg tablet 500 mg PO BID PRN pain 10 days #20 08/22/22 tabs ibuprofen 600 mg tablet 600 mg PO Q6H PRN pain #20 tabs 09/25/22 acetaminophen 500 mg tablet 500 mg PO Q6H PRN fever or pain 02/06/23 #20 tabs ketorolac 10 mg tablet 10 mg PO TID PRN pain #10 tabs 02/06/23 sumatriptan succinate 100 mg tablet 100 mg PO BID PRN migraine 02/06/23 headache #7 tabs Allergies Allergy/AdvReac Type Severity Reaction Status Date / Time metoclopramide [From REGLAN] Allergy Intermediate AGITATION Verified 11/25/22 09:17 prochlorperazine Allergy Intermediate AGITATION Verified 11/25/22 09:17 [From COMPAZINE] diphenhydramine AdvReac Intermediate AGITATION Verified 11/25/22 09:17 [From BENADRYL] Review of Systems Review of Systems: Constitutional : No Weight loss, No Fever, No Chills, No Night Sweats, No Fatigue, No Malaise ENT/Mouth : No Hearing loss, No Ear Pain, No Nasal Congestion, No Sinus Pain, No Hoarseness, No sore throat, No Rhinorrhea, No Swallowing Difficulty Eyes: No Eye Pain, No Swelling, No Redness, No Foreign Body, No Discharge, No Vision Changes Cardiovascular : No Chest Pain, No SOB, No Dyspnea on Exertion, No Orthopnea, No Edema, No Palpitations Respiratory : No Cough, No Sputum, No Wheezing, No Smoke Exposure, No Dyspnea Gastrointestinal : No Nausea, No Vomiting, No Diarrhea, No Constipation, No abdominal Pain, No Hematochezia, No Melena Genitourinary : no irregular bleeding, No Dysuria, No Urinary Frequency, No Hematuria, No Urinary Incontinence, No Urgency, No Flank Pain, No Urinary Flow Changes, No Hesitancy Musculoskeletal : No joint pain, No Myalgias, No Joint Swelling Skin : No Skin Lesions, No rash Neuro : No Weakness, No Numbness, No Paresthesias, No Loss of Consciousness, No Dizziness, lining of headache for 3 days Psych : No Anxiety/Panic, No Depression, No SI/HI/AH/VH, No Social Issues, Heme/Lymph: No Bruising, No Bleeding,No Lymphadenopathy Endocrine : No Polyuria, No Polydipsia, No Temperature Intolerance PMFSH Past Medical History Medical History Afib Anxiety Depression GERD (gastroesophageal reflux disease) Kidney stone Migraine Pneumonia Surgical History Hx of appendectomy Hx of cholecystectomy Social History Social History Alcohol intake: never Patient Tobacco Use Status: Never used Tobacco Substance Use Type: Marijuana Advance Directives: No Advance Directives Information Provided: No Advance Directives Date on File: 05/01/20 Physical Exam ED Vital Signs: Vital Signs - 24 hr 02/06/23 16:22 02/06/23 20:04 02/06/23 22:44 Temperature 97.4 F 98 F 97.9 F Pulse Rate 83 98 76 Respiratory Rate 19 20 17 Blood Pressure 157/104 H 156/109 H 136/89 Pulse Oximetry 99 98 100 Oxygen Delivery Method Room Air Room Air Room Air BMI result Body Mass Index 34.7 Const Other: Appearance: Alert. Oriented X3. Looks in pain however uncomfortable Eyes: Pupils equal, round and reactive to light. Has photophobia ENT: Pharynx normal. Neck: Normal inspection. Neck supple. No lymph nodes noted. No crepitus CVS: Normal heart rate and rhythm. Pulses normal. Normal S1 and S2 Respiratory: No respiratory distress. Breath sounds normal. No Wheezing. No rales Abdomen: Soft and nontender. No rigidity. No distention. Skin: Skin warm and dry. Normal skin color. Normal skin turgor. Extremities: No lower extremity edema. No Lacerations. No Rash Neuro: Oriented X 3. No motor deficit. No sensory deficit. Moving all extremities. No slurred speech. CN 2 through 12 grossly intact Psych: calm, cooperative, normal affect Course Course Course Narrative: This is an RME: Additional HPI, ROS, PE not included below will be deferred to primary provider. This is a [id number], hx of chronic migraines, presenting to the ER with complaints of migraines x 3 days. Different than usual migraines. Has been taking immitrex, ibuprofen, without any relief. Endorsing nausea vomiting, photophobia. Vital signs are stable. No neurologic findings on exam. Plan: Head CT ordered given atypical presentation of headaches. Medications Administered Discontinued Medications Generic Name Dose Route Start Last Admin Trade Name Freq PRN Reason Stop Dose Admin Diphenhydramine HCl 25 mg 02/06/23 20:34 02/06/23 20:45 Diphenhydramine Hcl 50 Mg/Ml Vial IVPUSH 02/06/23 20:35 25 mg ONCE ONE Administration Sodium Chloride 1,000 mls @ 999 mls/hr 02/06/23 20:34 02/06/23 22:16 Ns IVCONT 02/06/23 21:34 Infused .Q1H1M ONE Infusion Ketorolac Tromethamine 30 mg 02/06/23 20:34 02/06/23 20:45 Ketorolac Tromethamine 30 Mg/Ml Vial IVPUSH 02/06/23 20:35 30 mg ONCE ONE Administration Lorazepam 2 mg 02/06/23 22:10 02/06/23 22:15 Lorazepam 1 Mg Tablet PO 02/06/23 22:11 2 mg ONCE ONE Administration Morphine Sulfate 4 mg 02/06/23 22:10 02/06/23 22:15 Morphine Sulfate 4 Mg/Ml Cartridge IVPUSH 02/06/23 22:11 4 mg ONCE ONE Administration Protocol Ondansetron HCl 4 mg 02/06/23 20:34 02/06/23 20:45 Ondansetron Hcl 4 Mg/2 Ml Vial IVPUSH 02/06/23 20:35 4 mg ONCE ONE Administration Medical Decision Making Medical Decision Making MDM Narrative: -my interpretation of CT scan of the head: No intracranial bleed -patient receiving IV fluids, Zofran, Benadryl, Toradol. Patient allergic to Reglan and Compazine - after the IV cocktail, patient states he feels slightly better, but still having intense headache. - Patient receiving IV morphine. Patient states that he also feels very anxious that his headache is not improving, patient getting p.o. Ativan. - patient feeling less anxious, less headache. Patient ready for discharge. Differential Diagnosis Differential Diagnoses: The differential diagnosis associated with the presentation includes ( Tension headache, migraine headache, intracranial mass) Admission/Observation Consideration of admission/observation: Escalation of care including admission/observation considered ( patient came in with severe migraine headache, admission was considered for intractable migraine. However, patient improved) Independent Interpretation I performed an independent interpretation of an: CT Scan ( my interpretation head CT: No intracranial abnormality, no intracranial bleed) Radiology Impression Discussion of test interpretation with radiology: I have reviewed the radiologist's reading. Radiologist Impression: INDINGS: There is no evidence of acute intracranial hemorrhage or edematous territorial infarction. Zuluaga-white matter differentiation is preserved. There is no abnormal attenuation within the brain parenchyma. The ventricles are normal in morphology and size. No evidence for obstructive hydrocephalus. No abnormal mass effect or midline shift. No extra-axial fluid collections. There is stable low-attenuation density seen in the posterior aspect of left parietal-temporal cortical/subcortical area without mass effect or interval change since MRI of 10/13/2019 and MRI from January 17 2011 No acute soft tissue or osseous abnormalities. The mastoid air cells and visualized paranasal sinuses are clear. ? ? CT/CT head/brain wo IV con IMPRESSION: No interval change no acute or intracranial pathology. Small indeterminate low-attenuation lesion in the posterior aspect of the left parietal/temporal cortical subcortical region. Discharge Plan Discharge Clinical Impression: Headache, migraine Patient Disposition: Home, Self-Care Instructions: Acute Headache (ED) Additional Instructions: Please follow-up with your primary care physician tomorrow. If you have any worsening or new symptoms, please return to the emergency room or call 911 Prescriptions: New sumatriptan succinate 100 mg tablet 100 mg PO BID PRN (Reason: migraine headache) Qty: 7 0RF Rx Instructions: do not exceed 2 doses per 24 hrs ketorolac 10 mg tablet 10 mg PO TID PRN (Reason: pain) Qty: 10 0RF acetaminophen 500 mg tablet 500 mg PO Q6H PRN (Reason: fever or pain) Qty: 20 0RF No Action sumatriptan succinate 100 mg tablet 1 tab PO DAILY PRN (Reason: Migraine Headache) clonazepam [Klonopin] 0.5 mg tablet 1 tab PO QAM PRN (Reason: Anxiety) clonazepam 1 mg tablet 1 tab PO BEDTIME PRN (Reason: Anxiety) risperidone 0.5 mg tablet 1 tab PO DAILY verapamil 240 mg capsule,ext rel. pellets 24 hr 1 cap PO DAILY bupropion HCl 300 mg tablet extended release 24 hr 1 tab PO QAM acetaminophen [Tylenol Extra Strength] 500 mg tablet 500 mg PO Q6H PRN (Reason: fever or pain) Qty: 14 0RF naproxen 500 mg tablet 500 mg PO BID PRN (Reason: pain) 10 Days Qty: 20 0RF ibuprofen 600 mg tablet 600 mg PO Q6H PRN (Reason: pain) Qty: 20 0RF quetiapine 100 mg tablet 100 mg PO BEDTIME trazodone 100 mg tablet 100 mg PO BEDTIME
[2023-02-06 20:04] VITALS: BP 156/109; PULSE 98; RESP 20; TEMP 36.6; O2SAT 98
[2023-02-06] MEDS: Ketorolac Tromethamine 30 MG/ML VIAL IVPUSH (20:45)
[2023-02-06] MEDS: ondansetron HCL 4 MG/2 ML VIAL IVPUSH (20:45)
[2023-02-06] MEDS: 0.9 % Sodium Chloride 1,000 ML 999 ML IVCONT (20:45)
[2023-02-06] MEDS: diphenhydrAMINE HCL 50 MG/ML VIAL 25 MG IVPUSH (20:45)
[2023-02-06] MEDS: Morphine Sulfate 4 MG/ML CARTRIDGE IVPUSH (22:15)
[2023-02-06] MEDS: LORazepam 1 MG TABLET 2 MG PO (22:15)
[2023-02-06 22:44] VITALS: BP 136/89; PULSE 76; RESP 17; TEMP 36.6; O2SAT 100
== END 2023-02-06 23:55 | disposition home or self-care (01) ==
PROVIDERS: Emergency Provider Emergency Medicine; PCP Internal Medicine
DX: G43.909 Migraine, unspecified, not intractable, without status migrainosus (principal); R11.2 Nausea with vomiting, unspecified; Z79.899 Other long term (current) drug therapy
CPT/HCPCS: 70450; 96361; 96374; 96375; 99284; J1200; J1885; J2270; J2405

== ENCOUNTER 2023-03-01 23:23 | Emergency (ER) | payer OTHER, SELFPAY ==
--- NOTE | ~2023-03-01 | XR_ITS ---
EXAMINATION: XR WRIST, LEFT CLINICAL INFORMATION: Pain COMPARISON: None available. TECHNIQUE: PA, lateral, and oblique views of the left wrist. FINDINGS: No fracture or dislocation. Alignment is anatomic. The carpal rows are well aligned. Joint spaces are maintained. Soft tissues are unremarkable. XR/XR wrist LT min 3V IMPRESSION: Normal left wrist.
[2023-03-01 23:51] VITALS: BP 166/108; PULSE 92; RESP 16; TEMP 36.8; O2SAT 96; BMI 34.9
--- NOTE | 2023-03-02 01:40 | ED.EXTPRO ---
HPI - Extremity Problem General Chief complaint: Extremity Injury, Upper Stated complaint: Pain left wrist and hand Time Seen by Provider: 03/02/23 01:25 Source: patient, RN notes reviewed and old records reviewed Mode of arrival: ambulatory Limitations: no limitations History of Present Illness HPI Narrative: 37-year-old male presents for evaluation of left wrist pain. The patient reports he is left hand dominant. He reports that Friday night he accidentally fell asleep with his left wrist bent and his head was resting on his hand He reports he slept like that for approximately 5 hours He woke up with numbness to the left hand and wrist He has been using ibuprofen and Tylenol with some improvement in his symptoms Denies any falls or significant trauma No overlying skin changes such as redness Denies any history of gout Related Data Home Medications Medication Instructions Recorded Confirmed bupropion HCl 300 mg 24 hr tablet, 1 tab PO QAM 10/19/21 10/02/22 extended release clonazepam 0.5 mg tablet (Klonopin) 1 tab PO QAM PRN Anxiety 10/19/21 10/02/22 clonazepam 1 mg tablet 1 tab PO BEDTIME PRN Anxiety 10/19/21 10/02/22 risperidone 0.5 mg tablet 1 tab PO DAILY 10/19/21 10/02/22 sumatriptan succinate 100 mg tablet 1 tab PO DAILY PRN Migraine 10/19/21 10/02/22 Headache verapamil 240 mg 24 hr 1 cap PO DAILY 10/19/21 10/02/22 capsule,extended release quetiapine 100 mg tablet 100 mg PO BEDTIME 10/02/22 10/02/22 trazodone 100 mg tablet 100 mg PO BEDTIME 10/02/22 10/02/22 Previous Rx's Medication Instructions Recorded acetaminophen 500 mg tablet 500 mg PO Q6H PRN fever or pain 08/22/22 (Tylenol Extra Strength) #14 tabs naproxen 500 mg tablet 500 mg PO BID PRN pain 10 days #20 08/22/22 tabs ibuprofen 600 mg tablet 600 mg PO Q6H PRN pain #20 tabs 09/25/22 acetaminophen 500 mg tablet 500 mg PO Q6H PRN fever or pain 02/06/23 #20 tabs ketorolac 10 mg tablet 10 mg PO TID PRN pain #10 tabs 02/06/23 sumatriptan succinate 100 mg tablet 100 mg PO BID PRN migraine 02/06/23 headache #7 tabs Allergies Allergy/AdvReac Type Severity Reaction Status Date / Time metoclopramide [From REGLAN] Allergy Intermediate AGITATION Verified 11/25/22 09:17 prochlorperazine Allergy Intermediate AGITATION Verified 11/25/22 09:17 [From COMPAZINE] diphenhydramine AdvReac Intermediate AGITATION Verified 11/25/22 09:17 [From BENADRYL] Review of Systems Constitutional: Constitutional: Denies chills, Denies fever(s) and Denies headache(s) Eyes: Eyes: Denies blurry vision ENT: Denies headache(s) Cardiovascular: Cardiovascular: Denies chest pain and Denies dyspnea Respiratory: Respiratory: Denies cough and Denies dyspnea Gastrointestinal: Gastrointestinal: Denies abdominal pain, Denies nausea and Denies vomiting Musculoskeletal: Musculoskeletal: Reports arthralgias, Reports joint swelling and Reports limited range of motion Neurologic: Denies headache(s) PMFSH Past Medical History Medical History Afib Anxiety Depression GERD (gastroesophageal reflux disease) Kidney stone Migraine Pneumonia Surgical History Hx of appendectomy Hx of cholecystectomy Social History Social History Alcohol intake: never Patient Tobacco Use Status: Never used Tobacco Substance Use Type: Marijuana Advance Directives Date on File: 05/01/20 Physical Exam Vital Signs: Vital Signs: Last Vital Signs Temp 98.2 F 03/01/23 23:51 Pulse 92 03/01/23 23:51 Resp 16 03/01/23 23:51 BP 166/108 H 03/01/23 23:51 Pulse Ox 96 03/01/23 23:51 O2 Del Method Room Air 03/01/23 23:51 BMI result Body Mass Index 34.9 Const: General: healthy appearing, comfortable, no acute distress, alert and awake Nutritional Appearance: well nourished HEENT: Head: Yes normocephalic and Yes atraumatic Eyes: Eyelids: Yes eyelids normal Conjunctivae: conjunctivae normal Sclerae: sclerae normal Corneas: corneas normal Pupils: Equal, round and reactive pupils present EOM: EOMs intact bilaterally Neck: Neck: Yes full ROM Resp: Effort & Inspection: normal respiratory effort, able to speak in complete sentences and not labored Skin: General skin exam: no rashes or lesions noted and elasticity normal Neuro: Cranial nerves: Yes Equal, round and reactive pupils present and Yes Bilaterally intact EOM present Cognition (Neuro): normal cognition Extrem: Other: There is no significant visual deformity to the left wrist. He is tender to most of the left wrist without pinpoint tenderness. Reduced range of motion with flexion of the left wrist.. Distal sensation cap refill intact. Radial pulses 2+ and equal. No left elbow tenderness. No tenderness to the left hand Medical Decision Making Medical Decision Making MDM Narrative: 37-year-old male presents for evaluation of left wrist pain after sleeping on the hand wrong. X-ray is negative for fracture. His CMS is intact. He likely has a mild neuropathy due to compression that will self resolve. This was discussed with the patient Differential Diagnosis Differential Diagnoses: The differential diagnosis associated with the presentation includes Left wrist pain Left wrist sprain Fracture Arthritis Gout Median nerve neuropathy Ulnar nerve neuropathy Radial nerve neuropathy Independent Interpretation I performed an independent interpretation of an: Plain X-Ray (No acute fracture of the left wrist) Radiology Impression Discussion of test interpretation with radiology: I have reviewed the radiologist's reading. (Normal left wrist) Discharge Plan Discharge Clinical Impression: Acute pain of left wrist Patient Disposition: Home, Self-Care Instructions: Wrist Injury (ED) Additional Instructions: Use ibuprofen/Tylenol as needed for pain. You may ice the area to help with swelling You may continue to use your wrist splint as needed but make sure you take it off to stretch at least a few times per day Follow-up with your primary doctor Your x-ray did not show any evidence of fracture Prescriptions: No Action sumatriptan succinate 100 mg tablet 1 tab PO DAILY PRN (Reason: Migraine Headache) clonazepam [Klonopin] 0.5 mg tablet 1 tab PO QAM PRN (Reason: Anxiety) clonazepam 1 mg tablet 1 tab PO BEDTIME PRN (Reason: Anxiety) risperidone 0.5 mg tablet 1 tab PO DAILY verapamil 240 mg capsule,ext rel. pellets 24 hr 1 cap PO DAILY bupropion HCl 300 mg tablet extended release 24 hr 1 tab PO QAM acetaminophen [Tylenol Extra Strength] 500 mg tablet 500 mg PO Q6H PRN (Reason: fever or pain) Qty: 14 0RF naproxen 500 mg tablet 500 mg PO BID PRN (Reason: pain) 10 Days Qty: 20 0RF ibuprofen 600 mg tablet 600 mg PO Q6H PRN (Reason: pain) Qty: 20 0RF sumatriptan succinate 100 mg tablet 100 mg PO BID PRN (Reason: migraine headache) Qty: 7 0RF Rx Instructions: do not exceed 2 doses per 24 hrs ketorolac 10 mg tablet 10 mg PO TID PRN (Reason: pain) Qty: 10 0RF acetaminophen 500 mg tablet 500 mg PO Q6H PRN (Reason: fever or pain) Qty: 20 0RF quetiapine 100 mg tablet 100 mg PO BEDTIME trazodone 100 mg tablet 100 mg PO BEDTIME Interventions: ED Discharge Assessment Last Done: 03/02/23 01:55
[2023-03-02 01:53] VITALS: BP 144/91; PULSE 80; RESP 16; O2SAT 96
== END 2023-03-02 01:57 | disposition home or self-care (01) ==
PROVIDERS: Emergency Provider Internal Medicine; PCP Internal Medicine
DX: M25.532 Pain in left wrist (principal); Z79.899 Other long term (current) drug therapy
CPT/HCPCS: 73110; 99283

== ENCOUNTER 2023-03-18 11:28 | Emergency (ER) | payer OTHER, SELFPAY ==
[2023-03-18 11:38] VITALS: BP 145/95; PULSE 88; RESP 18; TEMP 36.5; O2SAT 97; BMI 34.0
[2023-03-18] MEDS: 0.9 % Sodium Chloride 1,000 ML 999 ML IV ×2 (12:51→14:44)
[2023-03-18] MEDS: ondansetron HCL 4 MG/2 ML VIAL IVPUSH (12:55)
[2023-03-18] MEDS: diphenhydrAMINE HCL 50 MG/ML VIAL 25 MG IVPUSH (12:55)
[2023-03-18] MEDS: Ketorolac Tromethamine 30 MG/ML VIAL IVPUSH (12:56)
[2023-03-18] MEDS: Morphine Sulfate 4 MG/ML CARTRIDGE IVPUSH (14:04)
--- NOTE | 2023-03-18 14:11 | ED_ITS ---
HPI - Headache General Chief Complaint: Headache Stated Complaint: Migraine Time Seen by Provider: 03/18/23 11:50 Source: patient and RN notes reviewed Mode of arrival: ambulatory Limitations: no limitations History of Present Illness HPI Narrative: This is a 37-year-old male, with a past medical history of migraines, presenting to the emergency department with migraine which started yesterday. Patient reports that his current pain is typical of his migraines however he states that he has not had any pain relief with his medication he typically takes at home. He states that he is taking 200 mg of sumatriptan, alternating between ibuprofen and Tylenol, last dose of ibuprofen was 4 hours ago, patient reports pain is right-sided and also admits to having some pain on the right side of his neck. He endorses photosensitivity, nausea and 1 episode of vomiting today. He states that he has a neurologist, Dr. Melendez who is unable to see him until next week. No other complaints or concerns at this time. MD elicited complaint: migraine Onset description: gradually Related Data Home Medications Medication Instructions Recorded Confirmed bupropion HCl 300 mg 24 hr tablet, 1 tab PO QAM 10/19/21 10/02/22 extended release clonazepam 0.5 mg tablet (Klonopin) 1 tab PO QAM PRN Anxiety 10/19/21 10/02/22 clonazepam 1 mg tablet 1 tab PO BEDTIME PRN Anxiety 10/19/21 10/02/22 risperidone 0.5 mg tablet 1 tab PO DAILY 10/19/21 10/02/22 sumatriptan succinate 100 mg tablet 1 tab PO DAILY PRN Migraine 10/19/21 10/02/22 Headache verapamil 240 mg 24 hr 1 cap PO DAILY 10/19/21 10/02/22 capsule,extended release quetiapine 100 mg tablet 100 mg PO BEDTIME 10/02/22 10/02/22 trazodone 100 mg tablet 100 mg PO BEDTIME 10/02/22 10/02/22 Previous Rx's Medication Instructions Recorded acetaminophen 500 mg tablet 500 mg PO Q6H PRN fever or pain 08/22/22 (Tylenol Extra Strength) #14 tabs naproxen 500 mg tablet 500 mg PO BID PRN pain 10 days #20 08/22/22 tabs ibuprofen 600 mg tablet 600 mg PO Q6H PRN pain #20 tabs 09/25/22 acetaminophen 500 mg tablet 500 mg PO Q6H PRN fever or pain 02/06/23 #20 tabs ketorolac 10 mg tablet 10 mg PO TID PRN pain #10 tabs 02/06/23 sumatriptan succinate 100 mg tablet 100 mg PO BID PRN migraine 02/06/23 headache #7 tabs ondansetron 4 mg disintegrating 4 mg PO Q6-8H PRN nausea and 03/18/23 tablet vomiting #15 tabs Allergies Allergy/AdvReac Type Severity Reaction Status Date / Time metoclopramide [From REGLAN] Allergy Intermediate AGITATION Verified 11/25/22 09:17 prochlorperazine Allergy Intermediate AGITATION Verified 11/25/22 09:17 [From COMPAZINE] diphenhydramine AdvReac Intermediate AGITATION Verified 11/25/22 09:17 [From BENADRYL] Review of Systems Review of Systems: Yes all other systems are reviewed and are negative Constitutional: Constitutional: Reports as per [facility] Past Medical History Medical History Afib Anxiety Depression GERD (gastroesophageal reflux disease) Kidney stone Migraine Pneumonia Surgical History Hx of appendectomy Hx of cholecystectomy Social History Social History Alcohol intake: never Patient Tobacco Use Status: Never used Tobacco Substance Use Type: Marijuana Advance Directives: No Advance Directives Information Provided: No Advance Directives Date on File: 05/01/20 Physical Exam Vital Signs: Vital Signs: Last Vital Signs Temp 97.7 F 03/18/23 11:38 Pulse 88 03/18/23 11:38 Resp 18 03/18/23 11:38 BP 145/95 H 03/18/23 11:38 Pulse Ox 97 03/18/23 11:38 O2 Del Method Room Air 03/18/23 11:38 BMI result Body Mass Index 34.0 Const: General: cooperative, comfortable and no acute distress Orientation/consciousness: patient oriented x3 Limitations: no limitations HEENT: Head: Yes normal to inspection, Yes normocephalic and Yes atraumatic Ears: hearing grossly normal bilaterally General nose exam: Normal external nose present Face and sinus: Yes normal facial exam Mouth: Normal oral and palatal mucosa present, oropharynx normal and moist mucous membranes Throat: Yes posterior oropharynx normal Eyes: General: appearance normal, both eyes and all related structures Eyelids: Yes eyelids normal Conjunctivae: conjunctivae normal Sclerae: sclerae normal Pupils: Equal, round and reactive pupils present EOM: EOMs intact bilaterally Neck: Neck: Yes normal visual inspection, Yes full ROM, Yes no lymphadenopathy and Yes no meningeal signs Lymphatic: no lymphadenopathy noted Chest: Chest palpation & inspection: normal inspection of the chest Resp: Effort & Inspection: normal respiratory effort and able to speak in complete sentences Auscultation: clear to auscultation bilaterally, no crackles, no rales, no rhonchi and no wheezes Cardio: Rate: regular rate Rhythm: regular rhythm Heart sounds: S1 normal heart sound present and S2 normal heart sound present GI: Inspection: Yes normal to inspection Back/Spine/Pelvis: Other: No c-spine tenderness. TTP over left cervical paraspinous muscles. No nuchal rigidity. Full ROM of the neck. Skin: General skin exam: no rashes or lesions noted Trauma: no lacerations or abrasions Wounds: no wounds Neuro: General: patient oriented x3, moves all extremities, no meningeal signs and no focal motor deficits Cranial nerves: Yes CN's II-XII intact bilaterally, Yes Equal, round and reactive pupils present, Yes Nystagmus not present, Yes Normal facial strength present and Yes Midline tongue present Cognition (Neuro): normal cognition Gait exam (Neuro): Normal gait present Motor exam (neuro): 5/5 motor strength present throughout Extrem: General: Yes normal to inspection Right upper extremity: normal to inspection Left upper extremity: normal to inspection Right lower extremity: normal to inspection Left lower extremity: normal to inspection Course Reevaluation(s) Reevaluation #1: Patient feeling much better after receiving 2 L IV fluids, Toradol, Benadryl, Zofran, and morphine. Patient discharged with strict return precautions. Given prescription for Zofran per patient's request. Advised to follow-up with neurologist as soon as possible to have more control of his migraines. Patient understands and agrees with plan. Patient stable for discharge. Time: 15:46 Medications Administered Discontinued Medications Generic Name Dose Route Start Last Admin Trade Name Freq PRN Reason Stop Dose Admin Diphenhydramine HCl 25 mg 03/18/23 12:38 03/18/23 12:55 Diphenhydramine Hcl 50 Mg/Ml Vial IVPUSH 03/18/23 12:39 25 mg ONCE ONE Administration Sodium Chloride 1,000 mls @ 999 mls/hr 03/18/23 12:38 03/18/23 13:58 Ns IV 03/18/23 13:38 Infused .Q1H1M ONE Infusion Sodium Chloride 1,000 mls @ 999 mls/hr 03/18/23 14:38 03/18/23 15:45 Ns IV 03/18/23 15:38 Infused .Q1H1M ONE Infusion Ketorolac Tromethamine 30 mg 03/18/23 12:38 03/18/23 12:56 Ketorolac Tromethamine 30 Mg/Ml Vial IVPUSH 03/18/23 12:39 30 mg ONCE ONE Administration Morphine Sulfate 4 mg 03/18/23 13:52 03/18/23 14:04 Morphine Sulfate 4 Mg/Ml Cartridge IVPUSH 03/18/23 13:53 4 mg ONCE ONE Administration Protocol Ondansetron HCl 4 mg 03/18/23 12:38 03/18/23 12:55 Ondansetron Hcl 4 Mg/2 Ml Vial IVPUSH 03/18/23 12:39 4 mg ONCE ONE Administration Medical Decision Making Medical Decision Making MDM Narrative: 37 y/o M, with a hx of migraines, presenting to the ER with complaints of migraine headache since yesterday. Pt reports that this migraine he has is typical of his migraines he has had in the past. On arrival, mildly hypertensive at 145/95, all other VSS. Patient is fully neurologically intact without any acute focal findings. Given onset and presentation is typical of migraine, and pt has had no recent head trauma and is not on AC, will defer head CT at this time. Last CT was performed 1 month ago and wsa unremarkable. Will medicaate with IV fluids, zofran, toradol and re-evaluate Differential Diagnosis Differential Diagnoses: The differential diagnosis associated with the presentation includes migraine headache, tension headache, cluster headache, dehydration Admission/Observation Consideration of admission/observation: Escalation of care including admission/observation considered Lab Data MDM Lab Attestation statement: I reviewed the patient's lab results. Radiology Impression Discussion of test interpretation with radiology: I have reviewed the radiologist's reading. External Record Review External record reviewed: Inpatient record, Office record, Outpatient record, Prior outpatient labs, Prior outpatient radiology, Primary care record and Outside ED record Discharge Plan Discharge Clinical Impression: Migraine headache Patient Disposition: Home, Self-Care Instructions: Migraine Headache (ED) Additional Instructions: Your treated for a migraine headache today. We have given you Benadryl, Zofran, Toradol, and morphine. Please continue to rest, stay and dark room, and avoid known triggers. Drink plenty of fluids and get plenty of rest. I recommend you contacting your neurologist to see if they can see you sooner. If any new or worsening symptoms occur including but not limited to worsening headache, please return for re-evaluation. Prescriptions: New ondansetron 4 mg tablet,disintegrating 4 mg PO Q6-8H PRN (Reason: nausea and vomiting) Qty: 15 0RF No Action sumatriptan succinate 100 mg tablet 1 tab PO DAILY PRN (Reason: Migraine Headache) clonazepam [Klonopin] 0.5 mg tablet 1 tab PO QAM PRN (Reason: Anxiety) clonazepam 1 mg tablet 1 tab PO BEDTIME PRN (Reason: Anxiety) risperidone 0.5 mg tablet 1 tab PO DAILY verapamil 240 mg capsule,ext rel. pellets 24 hr 1 cap PO DAILY bupropion HCl 300 mg tablet extended release 24 hr 1 tab PO QAM acetaminophen [Tylenol Extra Strength] 500 mg tablet 500 mg PO Q6H PRN (Reason: fever or pain) Qty: 14 0RF naproxen 500 mg tablet 500 mg PO BID PRN (Reason: pain) 10 Days Qty: 20 0RF ibuprofen 600 mg tablet 600 mg PO Q6H PRN (Reason: pain) Qty: 20 0RF sumatriptan succinate 100 mg tablet 100 mg PO BID PRN (Reason: migraine headache) Qty: 7 0RF Rx Instructions: do not exceed 2 doses per 24 hrs ketorolac 10 mg tablet 10 mg PO TID PRN (Reason: pain) Qty: 10 0RF acetaminophen 500 mg tablet 500 mg PO Q6H PRN (Reason: fever or pain) Qty: 20 0RF quetiapine 100 mg tablet 100 mg PO BEDTIME trazodone 100 mg tablet 100 mg PO BEDTIME Interventions: ED Discharge Assessment Last Done: 03/18/23 15:52 Discharge Date/Time: 03/18/23 15:53
== END 2023-03-18 15:53 | disposition home or self-care (01) ==
PROVIDERS: Emergency Provider Emergency Medicine; PCP Internal Medicine
DX: G43.909 Migraine, unspecified, not intractable, without status migrainosus (principal); M54.2 Cervicalgia; R11.2 Nausea with vomiting, unspecified; Z79.899 Other long term (current) drug therapy
CPT/HCPCS: 96361; 96374; 96375; 99283; 99284; J1200; J1885; J2270; J2405

== ENCOUNTER 2023-04-03 13:36 | Emergency (ER) | payer OTHER, SELFPAY ==
[2023-04-03 13:39] VITALS: BP 142/95; PULSE 93; RESP 19; TEMP 36.6; O2SAT 98; BMI 34.0
--- NOTE | 2023-04-03 13:39 | ED.GENADULT ---
HPI - General Adult General Chief complaint: Headache Stated complaint: migraine Time Seen by Provider: 04/03/23 22:23 Source: patient Mode of arrival: ambulatory Limitations: no limitations History of Present Illness HPI narrative: Patient history of recurrent migraine headaches been followed by neurologist takes Imitrex been here several times for headaches comes here for similar headache started 12 hours prior to arrival localized to the retrobulbar and L side of the head pain no fever no trauma feeling nauseated vomited 2 times patient took 100 mg of Imitrex 2 times and ibuprofen without much relief no recent head injury, has photophobia no neck pain Related Data Home Medications Medication Instructions Recorded Confirmed bupropion HCl 300 mg 24 hr tablet, 1 tab PO QAM 10/19/21 10/02/22 extended release clonazepam 0.5 mg tablet (Klonopin) 1 tab PO QAM PRN Anxiety 10/19/21 10/02/22 clonazepam 1 mg tablet 1 tab PO BEDTIME PRN Anxiety 10/19/21 10/02/22 risperidone 0.5 mg tablet 1 tab PO DAILY 10/19/21 10/02/22 sumatriptan succinate 100 mg tablet 1 tab PO DAILY PRN Migraine 10/19/21 10/02/22 Headache verapamil 240 mg 24 hr 1 cap PO DAILY 10/19/21 10/02/22 capsule,extended release quetiapine 100 mg tablet 100 mg PO BEDTIME 10/02/22 10/02/22 trazodone 100 mg tablet 100 mg PO BEDTIME 10/02/22 10/02/22 Previous Rx's Medication Instructions Recorded acetaminophen 500 mg tablet 500 mg PO Q6H PRN fever or pain 08/22/22 (Tylenol Extra Strength) #14 tabs naproxen 500 mg tablet 500 mg PO BID PRN pain 10 days #20 08/22/22 tabs ibuprofen 600 mg tablet 600 mg PO Q6H PRN pain #20 tabs 09/25/22 acetaminophen 500 mg tablet 500 mg PO Q6H PRN fever or pain 02/06/23 #20 tabs ketorolac 10 mg tablet 10 mg PO TID PRN pain #10 tabs 02/06/23 sumatriptan succinate 100 mg tablet 100 mg PO BID PRN migraine 02/06/23 headache #7 tabs ondansetron 4 mg disintegrating 4 mg PO Q6-8H PRN nausea and 03/18/23 tablet vomiting #15 tabs Allergies Allergy/AdvReac Type Severity Reaction Status Date / Time metoclopramide [From REGLAN] Allergy Intermediate AGITATION Verified 04/03/23 13:38 prochlorperazine Allergy Intermediate AGITATION Verified 04/03/23 13:38 [From COMPAZINE] diphenhydramine AdvReac Intermediate AGITATION Verified 04/03/23 13:38 [From BENADRYL] Review of Systems Review of Systems: Yes all other systems are reviewed and are negative [facility] Past Medical History Medical History Kidney stone Migraine Afib Depression Anxiety GERD (gastroesophageal reflux disease) Pneumonia Surgical History (Reviewed 04/04/23 @ 01: by Fabrice Stringer MD) Hx of cholecystectomy Hx of appendectomy Social History Social History Alcohol intake: never Patient Tobacco Use Status: Never used Tobacco Substance Use Type: Marijuana Advance Directives: No Advance Directives Information Provided: Yes Advance Directives Date on File: 05/01/20 Physical Exam ED Vital Signs: Vital Signs - 24 hr 04/03/23 13:39 04/04/23 00:15 Temperature 98 F 97.9 F Pulse Rate 93 78 Respiratory Rate 19 16 Blood Pressure 142/95 H 145/89 H Pulse Oximetry 98 96 Oxygen Delivery Method Room Air Room Air BMI result Body Mass Index 34.0 Appearance: Alert. Oriented X3. No acute distress. Eyes: PERRLA, No Nystagmus photosensitive ENT: Pharynx normal. Oral Mucosa moist no temporal artery tenderness Neck: Normal inspection. Neck supple. CVS: Normal heart rate and rhythm. Pulses normal. Respiratory: No respiratory distress. Equal air entry bilateral, no wheezing/rales/rhonchi Abdomen: Soft and nontender. Bowel sounds are present, no mass palpable, no CVA tenderness Skin: Skin warm and dry. Normal skin color. Normal skin turgor. Extremities: No lower extremity edema. No calf tenderness Neuro: Oriented X 3. No motor deficit. No sensory deficit.No cerebellar signs , cranial nerves II-XII intact Course Course Course Narrative: This is a rapid medical exam: Additional HPI, ROS, PE not included below will be deferred to primary provider. Patient is a 37-year-old male with history of migraines presenting to the emergency department with complaint of migraine since 11pm last night. States pain began as 2/10 and has escalated to 10/10. Sees Dr. Melendez, states he has taken all of his prescribed medications without relief. Reports nausea and vomiting, photophobia. Also complains of pain to right neck/shoulder, states feels like a pinched nerve. States neck/shoulder symptoms are not typical of his migraines. Denies recent falls or other trauma. Last took 2nd dose of imitrex at 11, ibuprofen at noon. Mildly hypertensive in triage consistent with prior readings. Medications Administered Discontinued Medications Generic Name Dose Route Start Last Admin Trade Name Freq PRN Reason Stop Dose Admin Dexamethasone Sodium Phosphate 10 mg 04/03/23 23:03 04/03/23 23:19 Dexamethasone Sod Phosphate 10 Mg/Ml Vial IVPUSH 04/03/23 23:04 10 mg ONCE ONE Administration Hydromorphone HCl 1 mg 04/04/23 01:06 04/04/23 01:14 Hydromorphone Hcl 1 Mg/Ml Syringe IVPUSH 04/04/23 01:07 1 mg ONCE ONE Administration Protocol Sodium Chloride 1,000 mls @ 999 mls/hr 04/03/23 23:04 04/04/23 01:13 Ns IV 04/04/23 00:04 Infused .Q1H1M ONE Infusion Ketorolac Tromethamine 30 mg 04/03/23 23:02 04/03/23 23:18 Ketorolac Tromethamine 30 Mg/Ml Vial IVPUSH 04/03/23 23:03 30 mg ONCE ONE Administration Ondansetron HCl 4 mg 04/03/23 23:03 04/03/23 23:17 Ondansetron Hcl 4 Mg/2 Ml Vial IVPUSH 04/03/23 23:04 4 mg ONCE ONE Administration Medical Decision Making Medical Decision Making MDM Narrative: Patient with migraine headache felt better after medications discharge patient home Discharge Plan Discharge Clinical Impression: Migraine Patient Disposition: Home, Self-Care Instructions: Migraine Headache (ED) Additional Instructions: Rest at home Taking medication as prescribed by your neurologist Prescriptions: No Action sumatriptan succinate 100 mg tablet 1 tab PO DAILY PRN (Reason: Migraine Headache) clonazepam [Klonopin] 0.5 mg tablet 1 tab PO QAM PRN (Reason: Anxiety) clonazepam 1 mg tablet 1 tab PO BEDTIME PRN (Reason: Anxiety) risperidone 0.5 mg tablet 1 tab PO DAILY verapamil 240 mg capsule,ext rel. pellets 24 hr 1 cap PO DAILY bupropion HCl 300 mg tablet extended release 24 hr 1 tab PO QAM acetaminophen [Tylenol Extra Strength] 500 mg tablet 500 mg PO Q6H PRN (Reason: fever or pain) Qty: 14 0RF naproxen 500 mg tablet 500 mg PO BID PRN (Reason: pain) 10 Days Qty: 20 0RF ibuprofen 600 mg tablet 600 mg PO Q6H PRN (Reason: pain) Qty: 20 0RF ondansetron 4 mg tablet,disintegrating 4 mg PO Q6-8H PRN (Reason: nausea and vomiting) Qty: 15 0RF sumatriptan succinate 100 mg tablet 100 mg PO BID PRN (Reason: migraine headache) Qty: 7 0RF Rx Instructions: do not exceed 2 doses per 24 hrs ketorolac 10 mg tablet 10 mg PO TID PRN (Reason: pain) Qty: 10 0RF acetaminophen 500 mg tablet 500 mg PO Q6H PRN (Reason: fever or pain) Qty: 20 0RF quetiapine 100 mg tablet 100 mg PO BEDTIME trazodone 100 mg tablet 100 mg PO BEDTIME Interventions: ED Discharge Assessment Last Done: 04/04/23 02:44 Discharge Date/Time: 04/04/23 02:45
[2023-04-03] MEDS: 0.9 % Sodium Chloride 1,000 ML 999 ML IV (23:16)
[2023-04-03] MEDS: ondansetron HCL 4 MG/2 ML VIAL IVPUSH (23:17)
[2023-04-03] MEDS: Ketorolac Tromethamine 30 MG/ML VIAL IVPUSH (23:18)
[2023-04-03] MEDS: dexAMETHasone sod phosphate 10 MG/ML VIAL IVPUSH (23:19)
[2023-04-04 00:15] VITALS: BP 145/89; PULSE 78; RESP 16; TEMP 36.6; O2SAT 96
[2023-04-04] MEDS: HYDROmorphone HCl 1 MG/ML SYRINGE IVPUSH (01:14)
== END 2023-04-04 02:45 | disposition home or self-care (01) ==
PROVIDERS: Emergency Provider Internal Medicine; PCP Internal Medicine
DX: G43.909 Migraine, unspecified, not intractable, without status migrainosus (principal); I48.91 Unspecified atrial fibrillation; F12.90 Cannabis use, unspecified, uncomplicated; Z79.899 Other long term (current) drug therapy
CPT/HCPCS: 96361; 96374; 96375; 99284; J1100; J1170; J1885; J2405

== ENCOUNTER 2023-06-13 12:53 | Emergency (ER) | payer OTHER, SELFPAY ==
[2023-06-13 14:16] VITALS: BP 159/109; PULSE 78; RESP 18; TEMP 36.3; O2SAT 98; BMI 34.0
--- NOTE | 2023-06-13 15:29 | ED.HA ---
HPI - Headache General Chief Complaint: Headache Stated Complaint: migraine Time Seen by Provider: 06/13/23 20:35 Source: patient Limitations: no limitations History of Present Illness HPI Narrative: Pt is a 37yo male who presents to the ED with a migraine. Pt states he gets chronic migraines with the last one being over a month ago. Current palmer started 4 days ago. He states the pain is like someone is taking a drill through both temples. Pt has taken prescribed imitrex without relief, as well as ibuprofen and Tylenol. Pt notes some vomiting and nausea with last episode of vomiting yesterday. Pt states his migraines are preceded by an aura of sun spots in his vision, but currently denies vision changes. He notes worsening head pain with sound and light. Pt notes that a dark room is the only semi-alleviating factor. Pt is currently in the process of switching his neurologist. Related Data Home Medications Medication Instructions Recorded Confirmed bupropion HCl 300 mg 24 hr tablet, 1 tab PO QAM 10/19/21 10/02/22 extended release clonazepam 0.5 mg tablet (Klonopin) 1 tab PO QAM PRN Anxiety 10/19/21 10/02/22 clonazepam 1 mg tablet 1 tab PO BEDTIME PRN Anxiety 10/19/21 10/02/22 risperidone 0.5 mg tablet 1 tab PO DAILY 10/19/21 10/02/22 sumatriptan succinate 100 mg tablet 1 tab PO DAILY PRN Migraine 10/19/21 10/02/22 Headache verapamil 240 mg 24 hr 1 cap PO DAILY 10/19/21 10/02/22 capsule,extended release quetiapine 100 mg tablet 100 mg PO BEDTIME 10/02/22 10/02/22 trazodone 100 mg tablet 100 mg PO BEDTIME 10/02/22 10/02/22 Previous Rx's Medication Instructions Recorded acetaminophen 500 mg tablet 500 mg PO Q6H PRN fever or pain 08/22/22 (Tylenol Extra Strength) #14 tabs naproxen 500 mg tablet 500 mg PO BID PRN pain 10 days #20 08/22/22 tabs ibuprofen 600 mg tablet 600 mg PO Q6H PRN pain #20 tabs 09/25/22 acetaminophen 500 mg tablet 500 mg PO Q6H PRN fever or pain 02/06/23 #20 tabs ketorolac 10 mg tablet 10 mg PO TID PRN pain #10 tabs 02/06/23 sumatriptan succinate 100 mg tablet 100 mg PO BID PRN migraine 02/06/23 headache #7 tabs ondansetron 4 mg disintegrating 4 mg PO Q6-8H PRN nausea and 03/18/23 tablet vomiting #15 tabs Allergies Allergy/AdvReac Type Severity Reaction Status Date / Time metoclopramide [From REGLAN] Allergy Intermediate AGITATION Verified 06/13/23 14:14 prochlorperazine Allergy Intermediate AGITATION Verified 06/13/23 14:14 [From COMPAZINE] diphenhydramine AdvReac Intermediate AGITATION Verified 06/13/23 14:14 [From BENADRYL] Review of Systems Constitutional: Constitutional: Denies chills, Denies fever(s) and Reports headache(s) Eyes: Eyes: Denies change in vision ENT: Denies dizziness, Reports headache(s) and Denies neck pain Cardiovascular: Cardiovascular: Denies chest pain and Denies dyspnea Respiratory: Respiratory: Denies cough and Denies dyspnea Gastrointestinal: Gastrointestinal: Denies abdominal pain, Denies constipation, Denies diarrhea, Reports nausea and Reports vomiting Musculoskeletal: Musculoskeletal: Denies neck pain and Denies numbness Neurologic: Denies dizziness, Reports headache(s) and Denies numbness PMFSH Past Medical History Medical History Kidney stone Migraine Afib Depression Anxiety GERD (gastroesophageal reflux disease) Pneumonia Surgical History Hx of cholecystectomy Hx of appendectomy Social History Social History Alcohol intake: never Patient Tobacco Use Status: Never used Tobacco Substance Use Type: Marijuana Advance Directives: No Advance Directives Information Provided: No Advance Directives Date on File: 05/01/20 Physical Exam Vital Signs: Vital Signs: Last Vital Signs Temp 97.3 F 06/13/23 14:16 Pulse 80 06/13/23 23:02 Resp 20 06/13/23 23:16 BP 158/113 H 06/13/23 23:02 Pulse Ox 97 06/13/23 23:02 O2 Del Method Room Air 06/13/23 23:02 BMI result Body Mass Index 34.0 Const: Orientation/consciousness: patient oriented x3 HEENT: Head: Yes normal to inspection, Yes normocephalic and Yes atraumatic Ears: hearing grossly normal bilaterally General nose exam: Normal external nose present Eyes: General: appearance normal, both eyes and all related structures Eyelids: Yes eyelids normal Conjunctivae: conjunctivae normal Pupils: Equal, round and reactive pupils present Direct Ophthalmoscopy: normal light reflex and no photophobia Resp: Effort & Inspection: normal respiratory effort and able to speak in complete sentences Auscultation: clear to auscultation bilaterally Cardio: Rate: regular rate Rhythm: regular rhythm Heart sounds: S1 normal heart sound present and S2 normal heart sound present Neuro: General: patient oriented x3, moves all extremities and no focal motor deficits Cranial nerves: Yes CN's II-XII intact bilaterally and Yes Equal, round and reactive pupils present Motor exam (neuro): 5/5 motor strength present throughout Course Course Course Narrative: This is an RME: Additional HPI, ROS, PE not included below will be deferred to primary provider. Patient is a 37 year male who presents emergency department for evaluation of a migraine headache. Reports onset 5 days ago, unrelieved by his Imitrex. consistent previous migraine headaches. no red flag symptoms. Has nausea and ptohophobia. Plan: viral testing, placed in waiting room pending bed availability for pain management Reevaluation(s) Reevaluation #1: Patient reports his headache has greatly improved from a 10/10 down to a 4/10 He feels this is quite manageable and he is eager for discharge at this time. Time: 01:00 Medications Administered Discontinued Medications Generic Name Dose Route Start Last Admin Trade Name Joanna PRN Reason Stop Dose Admin Dexamethasone Sodium Phosphate 10 mg 06/13/23 21:19 06/13/23 21:36 Dexamethasone Sod Phosphate 10 Mg/Ml Vial IVPUSH 06/13/23 21:20 10 mg ONCE ONE Administration Hydromorphone HCl 1 mg 06/13/23 23:10 06/13/23 23:16 Hydromorphone Hcl 1 Mg/Ml Syringe IVPUSH 06/13/23 23:11 1 mg ONCE ONE Administration Protocol Sodium Chloride 1,000 mls @ 999 mls/hr 06/13/23 21:30 06/13/23 23:19 Ns IV 06/13/23 22:30 Infused .Q1H1M SERGEY Infusion Ibuprofen 600 mg 06/13/23 18:42 06/13/23 19:04 Ibuprofen 600 Mg Tablet PO 06/13/23 18:43 600 mg ONCE ONE Administration Ketorolac Tromethamine 30 mg 06/13/23 21:19 06/13/23 21:36 Ketorolac Tromethamine 30 Mg/Ml Vial IVPUSH 06/13/23 21:20 30 mg ONCE ONE Administration Ondansetron HCl 4 mg 06/13/23 21:19 06/13/23 21:36 Ondansetron Hcl 4 Mg/2 Ml Vial IVPUSH 06/13/23 21:20 4 mg ONCE ONE Administration Medical Decision Making Medical Decision Making [facility] Narrative: 37-year-old male presents for evaluation of acute on chronic headaches. He follows with Neurology but is in the process of changing his neurologist. He has no fever, neck pain, meningeal signs to suggest infectious process. Will treat his headache with Toradol, dexamethasone, Zofran which he reports helped last time he was here. No neuro deficits, I do not see any indication to get emergent imaging at this time. Differential Diagnosis Differential Diagnoses: The differential diagnosis associated with the presentation includes (tension headache, cluster headache, migraine with aura, meningitis, encephalitis) Lab Data Labs: Lab Results 06/13/23 Range/Units 16:09 COVID-19 ([facility]) Negative (Negative) COVID-19 Clin Com See Note Influenza Type A ([facility]) Negative (Negative) Influenza Type B ([facility]) Negative (Negative) Influenza A & B Note See Note Discharge Plan Discharge Clinical Impression: Headache Patient Disposition: Home, Self-Care Instructions: Acute Headache (ED) Additional Instructions: Take all of your medication as prescribed Follow-up with your primary doctor Return for new or worsening symptoms Prescriptions: No Action sumatriptan succinate 100 mg tablet 1 tab PO DAILY PRN (Reason: Migraine Headache) clonazepam [Klonopin] 0.5 mg tablet 1 tab PO QAM PRN (Reason: Anxiety) clonazepam 1 mg tablet 1 tab PO BEDTIME PRN (Reason: Anxiety) risperidone 0.5 mg tablet 1 tab PO DAILY verapamil 240 mg capsule,ext rel. pellets 24 hr 1 cap PO DAILY bupropion HCl 300 mg tablet extended release 24 hr 1 tab PO QAM acetaminophen [Tylenol Extra Strength] 500 mg tablet 500 mg PO Q6H PRN (Reason: fever or pain) Qty: 14 0RF naproxen 500 mg tablet 500 mg PO BID PRN (Reason: pain) 10 Days Qty: 20 0RF ibuprofen 600 mg tablet 600 mg PO Q6H PRN (Reason: pain) Qty: 20 0RF ondansetron 4 mg tablet,disintegrating 4 mg PO Q6-8H PRN (Reason: nausea and vomiting) Qty: 15 0RF sumatriptan succinate 100 mg tablet 100 mg PO BID PRN (Reason: migraine headache) Qty: 7 0RF Rx Instructions: do not exceed 2 doses per 24 hrs ketorolac 10 mg tablet 10 mg PO TID PRN (Reason: pain) Qty: 10 0RF acetaminophen 500 mg tablet 500 mg PO Q6H PRN (Reason: fever or pain) Qty: 20 0RF quetiapine 100 mg tablet 100 mg PO BEDTIME trazodone 100 mg tablet 100 mg PO BEDTIME
[2023-06-13 16:44] LABS: COVID-19 Test Negative (Negative); IDNOW Serial# 9DB6401D; IDNOW Serial# BCCEAD1C; Influenza A Negative (Negative); Influenza B2 Negative (Negative)
[2023-06-13] MEDS: Ibuprofen 600 MG TABLET PO (19:04)
[2023-06-13] MEDS: 0.9 % Sodium Chloride 1,000 ML 999 ML IV (21:34)
[2023-06-13] MEDS: Ketorolac Tromethamine 30 MG/ML VIAL IVPUSH (21:36)
[2023-06-13] MEDS: dexAMETHasone sod phosphate 10 MG/ML VIAL IVPUSH (21:36)
[2023-06-13] MEDS: ondansetron HCL 4 MG/2 ML VIAL IVPUSH (21:36)
[2023-06-13 23:02] VITALS: BP 158/113; PULSE 80; RESP 17; O2SAT 97
[2023-06-13 23:16] VITALS: RESP 20
[2023-06-13] MEDS: HYDROmorphone HCl 1 MG/ML SYRINGE IVPUSH (23:16)
== END 2023-06-14 01:31 | disposition home or self-care (01) ==
PROVIDERS: Nurse Practitioner Family; Emergency Provider Emergency Medicine; PCP Internal Medicine
DX: G43.909 Migraine, unspecified, not intractable, without status migrainosus (principal); Z11.52 Encounter for screening for COVID-19; Z20.822 Contact with and (suspected) exposure to COVID-19; Z79.899 Other long term (current) drug therapy
CPT/HCPCS: 87502; 87635; 96361; 96374; 96375; 99284; J1100; J1170; J1885; J2405

== ENCOUNTER 2023-08-06 01:24 | Emergency (ER) | payer OTHER, SELFPAY ==
--- NOTE | 2023-08-06 | ECG_ITS ---
Test Reason : CHEST PAIN Blood Pressure : / mmHG Vent. Rate : 079 BPM Atrial Rate : 079 BPM P-R Int : 144 ms QRS Dur : 116 ms QT Int : 418 ms P-R-T Axes : 053 032 037 degrees QTc Int : 479 ms Normal sinus rhythm with sinus arrhythmia Nonspecific ST-T changes Abnormal ECG When compared with ECG of 19-OCT-2021 01:11, Vent. rate has decreased BY 46 BPM Nonspecific T wave abnormality now evident in Anterior leads Referred By: Generic ED Physician Electronically Signed By:Estevan Ann
[2023-08-06 01:28] VITALS: BP 169/116; PULSE 89; RESP 17; TEMP 36.4; O2SAT 98; BMI 35.9
[2023-08-06 01:54] LABS: MANUAL DIFF FLAG NO
[2023-08-06 01:58] LABS: Basophils Percent Auto 0.3 % (0-2); Eosinophils Absolute Auto 0.1 X10*3/uL (0.0-0.4); Hematocrit 44.8 % (42.0-52.0); Hemoglobin 15.1 g/dl (14.0-18.0); Imm Gran Abs Auto 0.05 X10*3/uL (0.00-0.03); Imm Gran Pct Auto 0.5 % (0.0-0.4); Lymphocytes Absolute Auto 2.8 X10*3/uL (1.2-4.9); Lymphocytes Percent Auto 27.4 % (20-40); Mean Corpuscular HGB Conc 33.7 g/dl (31.0-36.0); Mean Corpuscular Hemoglobin 27.4 pg (27.0-33.0); Mean Corpuscular Volume 81.3 fL (80.0-98.0); Mean Platelet Volume 8.1 fL (9.4-12.4); Monocytes Absolute Auto 0.6 X10*3/uL (0.1-1.2); Monocytes Percent Auto 5.8 % (2-11); Neutrophils Absolute Auto 6.6 x10*3/uL (2.0-8.3); Platelet Count 298 X10*3/uL (160-400); Red Blood Count 5.51 X10*6/uL (4.60-5.80); Red Cell Distribution Width 13.2 % (11.0-16.0); White Blood Count 10.2 X10*3/uL (4.8-10.8)
[2023-08-06 02:21] LABS: Alanine Aminotransferase 32 U/L (0-40); Albumin Level 4.4 g/dL (3.5-5.0); Alkaline Phosphatase 144 U/L (39-117); Anion Gap 15 (12-20); Aspartate Amino Transferase 17 U/L (5-37); Bilirubin Total 0.3 mg/dL (0.0-1.0); Blood Urea Nitrogen 11 mg/dL (9-16); Calcium 9.1 mg/dL (8.4-10.2); Carbon Dioxide 24 mmol/L (22-29); Chloride 105 mmol/L (96-108); Creatinine Clr Calc Pharmacy 96.3; Estimated Glomerular Filt Rate > 60; Glucose Random 115 mg/dL (60-115); Sodium 141 mmol/L (135-145); Total Protein 7.7 g/dL (6.5-8.0)
[2023-08-06 02:37] LABS: Troponin-I High Sensitivity < 2.7 ng/L (<3.5-35.0)
[2023-08-06 04:55] VITALS: BP 176/114; PULSE 89; RESP 18; TEMP 36.4; O2SAT 96
[2023-08-06 06:19] VITALS: BP 159/105; PULSE 86; RESP 16; TEMP 36.4; O2SAT 96
--- NOTE | 2023-08-06 07:01 | ED.HA ---
HPI - Headache General Chief Complaint: Headache Stated Complaint: migraine Time Seen by Provider: 08/06/23 06:49 Source: patient Mode of arrival: ambulatory Limitations: no limitations History of Present Illness HPI Narrative: 37 year old male hx of obesity, chronic headaches ( currently on short term disability due to them) presenting to the ED w/ migrane since last week, patient currently followed by [facility] neurology taking tylenol, ibuprofen and imitrex with out relief. In addition complaing of right nondenominational pain and right eye tearing that is intermittent. No aura. + photosensitivity and intermittent nausea. Reports the nausea is making him not want to eat unless he is starving . He just doesn't feel right. He used to get botox for his headaches but he no longer is getting it and feel like it used to work well. Also feeling congested. Denies abd pain, fevers,chills, cp, sob, vomiting, diarrhea. Related Data Home Medications Medication Instructions Recorded Confirmed bupropion HCl 300 mg 24 hr tablet, 1 tab PO QAM 10/19/21 10/02/22 extended release clonazepam 0.5 mg tablet (Klonopin) 1 tab PO QAM PRN Anxiety 10/19/21 10/02/22 clonazepam 1 mg tablet 1 tab PO BEDTIME PRN Anxiety 10/19/21 10/02/22 risperidone 0.5 mg tablet 1 tab PO DAILY 10/19/21 10/02/22 sumatriptan succinate 100 mg tablet 1 tab PO DAILY PRN Migraine 10/19/21 10/02/22 Headache verapamil 240 mg 24 hr 1 cap PO DAILY 10/19/21 10/02/22 capsule,extended release quetiapine 100 mg tablet 100 mg PO BEDTIME 10/02/22 10/02/22 trazodone 100 mg tablet 100 mg PO BEDTIME 10/02/22 10/02/22 Previous Rx's Medication Instructions Recorded acetaminophen 500 mg tablet 500 mg PO Q6H PRN fever or pain 08/22/22 (Tylenol Extra Strength) #14 tabs naproxen 500 mg tablet 500 mg PO BID PRN pain 10 days #20 08/22/22 tabs ibuprofen 600 mg tablet 600 mg PO Q6H PRN pain #20 tabs 09/25/22 acetaminophen 500 mg tablet 500 mg PO Q6H PRN fever or pain 02/06/23 #20 tabs ketorolac 10 mg tablet 10 mg PO TID PRN pain #10 tabs 02/06/23 sumatriptan succinate 100 mg tablet 100 mg PO BID PRN migraine 02/06/23 headache #7 tabs ondansetron 4 mg disintegrating 4 mg PO Q6-8H PRN nausea and 03/18/23 tablet vomiting #15 tabs fmivajaprg-ixhnlmuxdmslf-qybgzijx 1 cap PO Q8H PRN pain #14 caps 08/06/23 50 mg-300 mg-40 mg capsule (Fioricet) Allergies Allergy/AdvReac Type Severity Reaction Status Date / Time metoclopramide [From REGLAN] Allergy Intermediate AGITATION Verified 06/13/23 14:14 prochlorperazine Allergy Intermediate AGITATION Verified 06/13/23 14:14 [From COMPAZINE] diphenhydramine AdvReac Intermediate AGITATION Verified 06/13/23 14:14 [From BENADRYL] PMFSH Past Medical History Medical History Kidney stone Migraine Afib Depression Anxiety GERD (gastroesophageal reflux disease) Pneumonia Surgical History Hx of cholecystectomy Hx of appendectomy Social History Social History Alcohol intake: never Patient Tobacco Use Status: Never used Tobacco Substance Use Type: Marijuana Advance Directives: No Advance Directives Information Provided: No Advance Directives Date on File: 05/01/20 Physical Exam Vital Signs: Vital Signs: Last Vital Signs Temp 98.2 F 08/06/23 12:46 Pulse 81 08/06/23 12:46 Resp 16 08/06/23 12:46 BP 149/96 H 08/06/23 12:46 Pulse Ox 96 08/06/23 12:46 O2 Del Method Room Air 08/06/23 12:46 BMI result Body Mass Index 35.9 Course Reevaluation(s) Reevaluation #1: CBC unremarkable. Chemistry potassium 3.0 oral potassium ordered. CRP slightly elevated 0.66 however normal ESR. Low suspicion this is temporal arteritis. Neurological assessment remains unremarkable. Patient reports that he had improved pain from Toradol however still having some discomfort Time: 10:30 Reevaluation #2: Patient was given Fioricet and he reports his pain has improved a lot, he is now at his baseline in this feels normal. Patient's blood pressure remains elevated I suspected secondary to pain and also non med compliance patient did not take his verapamil last night. Home dose will be given pressure will be rechecked and then patient to be discharged home. Time: 12:04 Reevaluation #3: Home verapamil dose given. Blood pressure improved. Educated patient on diagnosis and treatment plan, answered all question, patient verbalizes understanding. At this time patient will be discharged home, advised to return with new or worsening symptoms. Educated on worrisome signs and symptoms and when to return. At this time I feel comfortable discharge home. Time: 12:55 Medications Administered Discontinued Medications Generic Name Dose Route Start Last Admin Trade Name Joanna PRN Reason Stop Dose Admin Acetaminophen/Butalbital/Caffeine 1 tab 08/06/23 10:33 08/06/23 10:41 Butalb/Acetamin/Caff 50/325/40 Tablet PO 08/06/23 10:34 1 tab ONCE ONE Administration Ketorolac Tromethamine 30 mg 08/06/23 07:01 08/06/23 08:05 Ketorolac Tromethamine 30 Mg/Ml Vial IVPUSH 08/06/23 07:02 30 mg ONCE ONE Administration Potassium Chloride 40 meq 08/06/23 07:00 08/06/23 08:05 Potassium Chloride Packet 20 Meq Packet PO 08/06/23 07:01 40 meq ONCE ONE Administration Verapamil HCl 240 mg 08/06/23 12:03 08/06/23 12:46 Verapamil Hcl Sr 240 Mg Tablet.Er PO 08/06/23 12:04 240 mg ONCE ONE Administration Protocol Medical Decision Making Medical Decision Making [facility] Narrative: 0700 37 year old male presents w/ headache since last week, + congestions, + nausea. Hx of chronic migranes followed by neurology Physical exam patient appears uncomfortable. NIHSS-0 Concerns for typical migraine versus temporal arteritis versus trigeminal neuralgia versus cluster headache versus sinus infection. Unlikely intracranial hemorrhage, stroke, posterior stroke, meningitis, encephalitis. No abdominal pain unlikely intra-abdominal etiology nausea likely secondary to migraine. Concerns for possible hypertensive urgency unlikely emergency. Plan labs, medicate for pain. No indication for CT negative NIH stroke scale. Differential Diagnosis Differential Diagnoses: The differential diagnosis associated with the presentation includes Concerns for typical migraine versus temporal arteritis versus trigeminal neuralgia versus cluster headache versus sinus infection. Unlikely intracranial hemorrhage, stroke, posterior stroke, meningitis, encephalitis.No abdominal pain unlikely intra-abdominal etiology nausea likely secondary to migraine. Concerns for possible hypertensive urgency unlikely emergency. Admission/Observation Consideration of admission/observation: Escalation of care including admission/observation considered Unlikely Lab Data MDM Lab Attestation statement: I reviewed the patient's lab results. 08/06/23 01:50 08/06/23 01:50 Labs: Lab Results 08/06/23 Range/Units 01:50 WBC 10.2 (4.8-10.8) X10*3/uL RBC 5.51 (4.60-5.80) X10*6/uL Hgb 15.1 (14.0-18.0) g/dl Hct 44.8 (42.0-52.0) % MCV 81.3 (80.0-98.0) fL MCH 27.4 (27.0-33.0) pg MCHC 33.7 (31.0-36.0) g/dl RDW 13.2 (11.0-16.0) % Plt Count 298 (160-400) X10*3/uL MPV 8.1 L (9.4-12.4) fL Immature Gran % (Auto) 0.5 H (0.0-0.4) % Neut % (Auto) 65.0 (45-73) % Lymph % (Auto) 27.4 (20-40) % Chaves % (Auto) 5.8 (2-11) % Eos % (Auto) 1.0 (0-4) % Baso % (Auto) 0.3 (0-2) % Lymph # (Auto) 2.8 (1.2-4.9) X10*3/uL Chaves # (Auto) 0.6 (0.1-1.2) X10*3/uL Eos # (Auto) 0.1 (0.0-0.4) X10*3/uL Baso # (Auto) 0.0 (0.0-0.2) X10*3/uL Abs Immat Gran (auto) 0.05 H (0.00-0.03) X10*3/uL Absolute Neuts (auto) 6.6 (2.0-8.3) x10*3/uL Absolute Nucleated RBC 0.000 (0.0-0.012) X10*3/uL Nucleated RBC % (auto) 0.0 (0.0-0.2) /100WBC ESR 13 (0-15) MM/HR Sodium 141 (135-145) mmol/L Potassium 3.0 L (3.3-5.1) mmol/L Chloride 105 (96-108) mmol/L Carbon Dioxide 24 (22-29) mmol/L Anion Gap 15 (12-20) BUN 11 (9-16) mg/dL Creatinine 1.26 (0.5-1.4) mg/dL Estim Creat Clear Calc 96.3 Estimated GFR > 60 Random Glucose 115 (60-115) mg/dL Calcium 9.1 (8.4-10.2) mg/dL Total Bilirubin 0.3 (0.0-1.0) mg/dL AST 17 (5-37) U/L ALT 32 (0-40) U/L Alkaline Phosphatase 144 H (39-117) U/L Troponin I High Sens < 2.7 (<3.5-35.0) ng/L C-Reactive Protein 0.66 H (< or = 0.50) mg/dL Total Protein 7.7 (6.5-8.0) g/dL Albumin 4.4 (3.5-5.0) g/dL Tests considered The following testing was considered but not selected: Considered CT of head however, NIHSS-0, migraine feels like typical. Discharge Plan Discharge Clinical Impression: Migraine Patient Disposition: Home, Self-Care Instructions: Migraine Headache (ED) Additional Instructions: Take your medications as prescribed. If you were prescribed antibiotics today, it is important that you take your medication to their entirety, do not skip any doses, do not finish them early. Follow-up with your primary care provider this week. Return to the emergency department with new or worsening symptoms. Such as fevers, chills, chest pain, shortness of breath, nausea, vomiting, dizziness, headache, vision changes, lethargy In case of emergency call 911 Follow-up with neurology. MAKE SURE YOU TAKE YOUR BLOOD PRESSURE MEDICINES EVERY DAY!! Aye has been sent to your pharmacy. Prescriptions: New sdhmondooo-jybpqhofdsisa-jqvq [Fioricet] 50-300-40 mg capsule 1 cap PO Q8H PRN (Reason: pain) Qty: 14 0RF No Action sumatriptan succinate 100 mg tablet 1 tab PO DAILY PRN (Reason: Migraine Headache) clonazepam [Klonopin] 0.5 mg tablet 1 tab PO QAM PRN (Reason: Anxiety) clonazepam 1 mg tablet 1 tab PO BEDTIME PRN (Reason: Anxiety) risperidone 0.5 mg tablet 1 tab PO DAILY verapamil 240 mg capsule,ext rel. pellets 24 hr 1 cap PO DAILY bupropion HCl 300 mg tablet extended release 24 hr 1 tab PO QAM acetaminophen [Tylenol Extra Strength] 500 mg tablet 500 mg PO Q6H PRN (Reason: fever or pain) Qty: 14 0RF naproxen 500 mg tablet 500 mg PO BID PRN (Reason: pain) 10 Days Qty: 20 0RF ibuprofen 600 mg tablet 600 mg PO Q6H PRN (Reason: pain) Qty: 20 0RF ondansetron 4 mg tablet,disintegrating 4 mg PO Q6-8H PRN (Reason: nausea and vomiting) Qty: 15 0RF sumatriptan succinate 100 mg tablet 100 mg PO BID PRN (Reason: migraine headache) Qty: 7 0RF Rx Instructions: do not exceed 2 doses per 24 hrs ketorolac 10 mg tablet 10 mg PO TID PRN (Reason: pain) Qty: 10 0RF acetaminophen 500 mg tablet 500 mg PO Q6H PRN (Reason: fever or pain) Qty: 20 0RF quetiapine 100 mg tablet 100 mg PO BEDTIME trazodone 100 mg tablet 100 mg PO BEDTIME Referrals: Physician,Unknown J [Primary Care Provider] - 2 days Discharge Date/Time: 08/06/23 12:55
[2023-08-06 07:46] LABS: C Reactive Protein 0.66 mg/dL (< or = 0.50)
[2023-08-06] MEDS: Ketorolac Tromethamine 30 MG/ML VIAL IVPUSH (08:05)
[2023-08-06] MEDS: Potassium Chloride Packet 20 MEQ PACKET 40 MEQ PO (08:05)
[2023-08-06 08:25] LABS: Erythrocyte Sedimentation Rate 13 MM/HR (0-15)
[2023-08-06] MEDS: Butalb/Acetamin/Caff 50/325/40 TABLET 1 TAB PO (10:41)
[2023-08-06 11:25] VITALS: BP 157/113; PULSE 67; RESP 16; TEMP 36.6; O2SAT 96
[2023-08-06 12:46] VITALS: BP 149/96; PULSE 81; RESP 16; TEMP 36.8; O2SAT 96
[2023-08-06] MEDS: VerapamiL HCL SR 240 MG TABLET.ER PO (12:46)
== END 2023-08-06 12:55 | disposition home or self-care (01) ==
PROVIDERS: Physician Assistant; Emergency Provider Emergency Medicine
DX: G43.909 Migraine, unspecified, not intractable, without status migrainosus (principal); R07.89 Other chest pain; I49.8 Other specified cardiac arrhythmias; R11.0 Nausea; Z79.899 Other long term (current) drug therapy
CPT/HCPCS: 36415; 80053; 84484; 85025; 85652; 86140; 93005; 96374; 99284; 99285; J1885

== ENCOUNTER → 2023-08-06 01:45 | Outpatient (BNV) | payer OTHER, SELFPAY | PROVIDERS: Emergency Provider Emergency Medicine; Visit Provider Internal Medicine Cardiovascular Disease | DX: I49.9 Cardiac arrhythmia, unspecified (principal) | CPT/HCPCS: 93010 ==

== ENCOUNTER 2023-08-13 08:34 | Outpatient (AMB) | payer OTHER, SELFPAY ==
--- NOTE | 2023-08-13 08:54 | A.OFFPC_ITS ---
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 Transferring care from [facility]. Medical records have been requested and have not received. Need testing for Sleep [place]. Orthotic/Prosthetic Clinician Required: No Technical Translator: Not Required per policy Accompanied by: Self / Same As Patient Allergies metoclopramide [From REGLAN] Allergy (Intermediate, Verified 08/13/23 10:15) AGITATION prochlorperazine [From COMPAZINE] Allergy (Intermediate, Verified 08/13/23 10:15) AGITATION diphenhydramine [From BENADRYL] Adverse Reaction (Intermediate, Verified 08/13/23 10:15) AGITATION Medication List - Last Reconciled 08/13/23 by Marcel Cruz MD bupropion HCl 1 tab PO QAM yyzuqbvzgs-vugvoiolzocgt-wybn 50-300-40 mg (Fioricet) 1 cap PO Q8H PRN clonazepam 1 tab PO BEDTIME PRN omeprazole 20 mg PO DAILY ondansetron 4 mg PO Q6-8H PRN quetiapine 100 mg PO BEDTIME risperidone 1 mg PO BEDTIME sumatriptan succinate 100 mg PO BID PRN trazodone 100 mg PO BEDTIME verapamil ER 240 mg PO DAILY Tobacco use date assessed: 08/13/23 Dental Screening Dental Screen Date: 08/13/23 Did you have a dental visit in the last 12 months?: No Did you have a dental problem in the last 6 months where you did not have access to dental care?: No Was dental information given to patient?: No 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 He is transferring his care from a provider in [place]. Past medical history is significant for migraines and depression. Patient has a therapist and a psychiatrist at [facility] who are prescribing his medications. Patient gives history of migraines for which he takes verapamil on a regular basis. He has requesting a refill on the same medications. He is trying to find a new neurologist who will give him more options other than medications. Patient wishes to find the neurologist by himself. Recently in the emergency room for headache and blood work showed a low potassium. Patient received potassium supplementation. Patient wishes to be evaluated for sleep apnea. He reports that he snores loudly and wakes up tired. Has gained a lot of weight recently. [facility] Medical History (Updated 08/13/23 @ 10:25 by Marcel Cruz MD) Primary hypertension Obstructive sleep apnea Class 2 severe obesity with body mass index (BMI) of 35 to 39.9 with serious comorbidity Kidney stone Migraine Afib Depression Anxiety GERD (gastroesophageal reflux disease) Pneumonia Surgical History History of wisdom tooth extraction Hx of cholecystectomy Hx of appendectomy Family History Other Diabetes HTN (hypertension) Substance use disorder Social History Housing: Apartment Alcohol intake: current Alcohol intake frequency: holidays/special occasions only Patient Tobacco Use Status: Never used Tobacco e-Cigarette/Vaping Use: Never Used Second Hand Smoke Exposure: No Substance Use Type: Marijuana Advance Directives Date on File: 05/01/20 service: No Current occupational status: disabled Cognitive needs: No Hearing needs: No Vision needs: Yes (glasses) Questionnaire PHQ-9 Over the last 2 weeks, how often have you been bothered by any of the following problems? 1. Little interest or pleasure in doing things: several days 2. Feeling down, depressed, or hopeless: several days 3. Trouble falling or staying asleep, or sleeping too much: more than half the days 4. Feeling tired or having little energy: more than half the days 5. Poor appetite or overeating: not at all 6. Feeling bad about yourself - or that you are a failure or have let yourself or your family down: several days 7. Trouble concentrating on things, such as reading the newspaper or watching television: not at all 8. Moving or speaking so slowly that other people could have noticed. Or the opposite - being so fidgety or restless that you have been moving around a lot more than usual: not at all 9. Thoughts that you would be better off or of hurting yourself in some way: not at all Total score: 7 Depression Screening Interpretation: Positive (Sees a psychiatrist, Dr. Mcmahon) Depression Screening Follow-up: Existing condition and In treatment Depression Screening Done: Yes Source: Developed by Drs. Diomedes Montanez, Jordana Nieves, George Duke and colleagues, with an educational francisco from [employer]. Thrive Questionnaire Date Thrive assessed: 08/13/23 I am a: Patient What is your living situation today?: I have a steady place to live Within the past 12 months, did the food you bought not last and you didn't have the money to get more?: Never true Within the past 12 months, did you worry whether your food would run out before you got money to buy more?: Never true Do you have trouble paying for medicines?: No Do you have trouble getting transportation to medical appointments?: No Do you have trouble paying your heating and electricity bill?: No Do you have trouble taking care of your child, family member or friend?: No Do you have trouble with day-to-day activities such as bathing, preparing meals, shopping, managing finances, etc.?: No Are you currently unemployed and looking for a job?: No Are you interested in more education?: No Currently or been in a relationship where the following occur: no concerns reported THRIVE Score: 0 AUDIT C Alcohol Use Questionnaire (AUDIT-C) 1. How often do you have a drink containing alcohol?: Monthly or less Total Score: 1 JAROD-7 AMB Questionnaire JAROD-7 Date JAROD - 7 assessed: 08/13/23 Feeling nervous, anxious, or on edge: 3 = Nearly every day Not being able to stop or control worryin = Nearly every day Worrying too much about different things: 3 = Nearly every day Trouble relaxin = More than half the days Being so restless that it is hard to sit still: 3 = Nearly every day Becoming easily annoyed or irritable: 2 = More than half the days Feeling afraid as if something awful might happen: 1 = Several days Total JAROD-7 score (0-4 normal; 5-9 mild; 10-14 moderate; 15-21 severe): 17 Source: Developed by Drs. Diomedes Montanez, Jordana Nieves, George Duke and colleagues, with an educational fracnisco from [employer]. Physical exam (Primary Care) Vital Signs: Last Vital Signs Pulse 94 08/13/23 08:56 BP 138/88 08/13/23 08:56 Pulse Ox 96 08/13/23 08:56 Oxygen Delivery Method Room Air 08/13/23 08:56 Care Plan Goal for BP management: Blood pressure is in range. Hydrochlorothiazide added to the regimen. BMI result Body Mass Index 35.6 BMI Assessment/Plan discussion: High (1 lb per week weight loss suggested.) BMI High, discussed plan: lifestyle, weight reduction and dietary Tobacco/Smoking Status: Tobacco use Status Tobacco use date assessed 08/13/23 08/13/23 08:58 Patient Tobacco Use Status Never used Tobacco 08/13/23 09:08 e-Cigarette/Vaping Use Never Used 08/13/23 09:08 PHQ-9: PHQ-9 Score PHQ-9: Total score 7 08/13/23 09:11 Depression Screening Interpretation: Positive (Sees a psychiatrist, Dr. Mcmahon) Depression Screening Follow-up: Existing condition and In treatment Thrive Assessment: Date of Thrive Assessment Date Thrive assessed 08/13/23 08/13/23 08:58 Currently or been in a relationship where the following occur: no concerns reported Const General: cooperative and healthy appearing Nutritional Appearance: well nourished Orientation/consciousness: patient oriented x3 Limitations: no limitations HENMT Head: Yes normal to inspection Eyes General: appearance normal, both eyes and all related structures Neck Neck: Yes normal visual inspection Chest Chest palpation & inspection: normal palpation of entire chest wall Resp Effort & Inspection: normal respiratory effort Neuro General: patient oriented x3 Assessment and Plan Assessment & Plan (1) Hypokalemia: Code(s): E87.6 - Hypokalemia Plan: Blood work has been scheduled to check for potassium levels again. Will call with the results. (2) Class 2 severe obesity with body mass index (BMI) of 35 to 39.9 with serious comorbidity: Code(s): E66.01 - Morbid (severe) obesity due to excess calories Plan: Counseling on the importance of diet and exercise done. (3) GERD (gastroesophageal reflux disease): Code(s): K21.9 - Gastro-esophageal reflux disease without esophagitis Plan: Continue omeprazole at the same dosage. (4) Depression: Code(s): F32.9 - Major depressive disorder, single episode, unspecified Plan: All medications including bupropion, clonazepam, risperidone, trazodone to be filled by the psychiatrist. (5) Obstructive sleep apnea: Code(s): G47.33 - Obstructive sleep apnea (adult) (pediatric) Plan: A sleep study will be ordered. (6) Migraine: Code(s): G43.909 - Migraine, unspecified, not intractable, without status migrainosus Plan: Patient is now planning to see a different neurologist. Currently has Imitrex and does not need a refill. I have asked him to discontinue the Fioricet. (7) Primary hypertension: Code(s): I10 - Essential (primary) hypertension Plan: Hydrochlorothiazide added to the regimen. Continue to check blood pressures at home. Orders: Orders Hemoglobin A1c Today E87.6 - Hypokalemia Lipid Panel Today E87.6 - Hypokalemia Basic Metabolic Panel Today E87.6 - Hypokalemia Liver Panel Today E87.6 - Hypokalemia Medications: New omeprazole 20 mg PO DAILY 90 caps 1RF Changed From verapamil ER 1 cap PO DAILY To verapamil ER 240 mg PO DAILY 90 caps 1RF Refilled ondansetron 4 mg PO Q6-8H PRN 15 tabs 0RF nausea and vomiting Discontinued ibuprofen Discontinued Reason: Doctor's Order 600 mg PO Q6H PRN 20 tabs 0RF pain acetaminophen Discontinued Reason: Doctor's Order 500 mg PO Q6H PRN 20 tabs 0RF fever or pain Coding Level of Care Code New Pt Level 5 (70009) Diagnoses Hypokalemia E87.6 Class 2 severe obesity with body mass index (BMI) of 35 to 39.9 with serious comorbidity E66.01 GERD (gastroesophageal reflux disease) K21.9 Depression F32.9 Obstructive sleep apnea G47.33 Migraine G43.909 Primary hypertension I10
[2023-08-13 08:56] VITALS: BP 138/88; PULSE 94; O2SAT 96; BMI 35.6
== END 2023-08-13 10:17 | disposition home or self-care (01) ==
PROVIDERS: Visit Provider Internal Medicine
DX: G47.33 Obstructive sleep apnea (adult) (pediatric) (principal); E87.6 Hypokalemia; K21.9 Gastro-esophageal reflux disease without esophagitis; F32.9 Major depressive disorder, single episode, unspecified; G43.909 Migraine, unspecified, not intractable, without status migrainosus; I10 Essential (primary) hypertension
CPT/HCPCS: 99204

== ENCOUNTER 2023-08-24 00:21 | Emergency (ER) | payer OTHER, SELFPAY ==
[2023-08-24 00:25] VITALS: BP 150/98; PULSE 93; RESP 16; TEMP 36.9; O2SAT 95; BMI 35.4
--- NOTE | 2023-08-24 00:49 | ED.GENADULT ---
HPI - General Adult General Chief complaint: General Medical Stated complaint: jaw pain Time Seen by Provider: 08/24/23 00:43 Source: patient Mode of arrival: ambulatory Limitations: no limitations History of Present Illness HPI narrative: 37-year-old male with history of migraines, anxiety, depression presents to the ER with complaints of left-sided jaw pain since August 18. Patient reports pain is worsened with chewing, biting down and in the morning when he wakes up. He has never had any history of TMJ issues. He does not use a mouth guard. Denies any injury or trauma. Denies any recent illnesses. Patient reports he called the dentist and has an appointment on to be seen. He has been alternating Motrin and Tylenol with continued pain. Related Data Home Medications Medication Instructions Recorded Confirmed bupropion HCl 300 mg 24 hr tablet, 1 tab PO QAM 10/19/21 08/13/23 extended release clonazepam 1 mg tablet 1 tab PO BEDTIME PRN Anxiety 10/19/21 08/13/23 quetiapine 100 mg tablet 100 mg PO BEDTIME 10/02/22 08/13/23 trazodone 100 mg tablet 100 mg PO BEDTIME 10/02/22 08/13/23 risperidone 1 mg tablet 1 mg PO BEDTIME 08/13/23 08/13/23 Previous Rx's Medication Instructions Recorded sumatriptan succinate 100 mg tablet 100 mg PO BID PRN migraine 02/06/23 headache #7 tabs okzbugwxuj-bxgnxzcydndxk-sigyjlhx 1 cap PO Q8H PRN pain #14 caps 08/06/23 50 mg-300 mg-40 mg capsule (Fioricet) hydrochlorothiazide 25 mg tablet 25 mg PO DAILY #90 tabs 08/13/23 omeprazole 20 mg capsule,delayed 20 mg PO DAILY #90 caps 08/13/23 release ondansetron 4 mg disintegrating 4 mg PO Q6-8H PRN nausea and 08/13/23 tablet vomiting #15 tabs verapamil 240 mg 24 hr 240 mg PO DAILY #90 caps 08/13/23 capsule,extended release Allergies Allergy/AdvReac Type Severity Reaction Status Date / Time metoclopramide [From REGLAN] Allergy Intermediate AGITATION Verified 08/24/23 00:25 prochlorperazine Allergy Intermediate AGITATION Verified 08/24/23 00:25 [From COMPAZINE] diphenhydramine AdvReac Intermediate AGITATION Verified 08/24/23 00:25 [From BENADRYL] Review of Systems Review of Systems: Yes all other systems are reviewed and are negative Constitutional: Constitutional: Reports no additional constitutional complaints, Denies body ache(s), Denies chills, Denies fever(s), Denies headache(s) and Denies weakness Eyes: Eyes: Reports no additional eye complaints and Denies change in vision ENT: Reports system reviewed and no additional complaints, except as documented, Denies dizziness, Denies headache(s), Denies nasal congestion, Denies nasal discharge and Denies neck pain Cardiovascular: Cardiovascular: Reports no additional cardiovascular complaints, Denies chest pain, Denies leg edema and Denies dyspnea Respiratory: Respiratory: Reports no additional respiratory complaints, Denies cough and Denies dyspnea Gastrointestinal: Gastrointestinal: Reports no additional gastrointestinal complaints, Denies abdominal pain, Denies diarrhea, Denies nausea and Denies vomiting Genitourinary: Genitourinary: Denies urinary incontinence Musculoskeletal: Musculoskeletal: Reports no additional musculoskeletal complaints, Denies back pain, Denies arthralgias, Denies joint swelling, Denies neck pain, Denies numbness and Denies tingling Integumentary/Breasts: Skin/Breast: Reports system reviewed and no additional complaints, except as docu and Denies rash Neurologic: Reports system reviewed and no additional complaints, except as documented, Denies dizziness, Denies headache(s), Denies numbness, Denies tingling and Denies weakness PMFSH Past Medical History Attestation statement: The following information was validated with the patient. Source: old records reviewed and nursing notes reviewed Medical History Primary hypertension Obstructive sleep apnea Class 2 severe obesity with body mass index (BMI) of 35 to 39.9 with serious comorbidity Kidney stone Migraine Afib Depression Anxiety GERD (gastroesophageal reflux disease) Pneumonia Surgical History History of wisdom tooth extraction Hx of cholecystectomy Hx of appendectomy Family History Family History Other Diabetes HTN (hypertension) Substance use disorder Social History Social History Housing: Apartment Alcohol intake: current Alcohol intake frequency: holidays/special occasions only Patient Tobacco Use Status: Never used Tobacco e-Cigarette/Vaping Use: Never Used Second Hand Smoke Exposure: No Substance Use Type: Marijuana Advance Directives: Yes Advance Directives on File: Yes Advance Directives Date on File: 05/01/20 service: No Current occupational status: disabled Cognitive needs: No Hearing needs: No Vision needs: Yes (glasses) Physical Exam ED Vital Signs: Vital Signs - 24 hr 08/24/23 00:25 Temperature 98.5 F Pulse Rate 93 Respiratory Rate 16 Blood Pressure 150/98 H Pulse Oximetry 95 Oxygen Delivery Method Room Air BMI result Body Mass Index 35.4 Const General: cooperative, healthy appearing, comfortable and no acute distress Orientation/consciousness: patient oriented x3 Limitations: no limitations HENMT Head: Yes normal to inspection Ears: hearing grossly normal bilaterally and TM's normal bilaterally General nose exam: Normal external nose present Face and sinus: Yes normal facial exam Mouth: Normal oral and palatal mucosa present and other (Tenderness on palpation to the left TMJ, and with clenching of the jaw) Throat: Yes posterior oropharynx normal, Yes tonsils normal and Yes uvula midline Eyes General: appearance normal, both eyes and all related structures Pupils: Equal, round and reactive pupils present Neck Neck: Yes normal visual inspection, Yes full ROM and Yes no lymphadenopathy Chest Chest palpation & inspection: normal inspection of the chest Resp Effort & Inspection: normal respiratory effort Auscultation: clear to auscultation bilaterally Cardio Rate: regular rate Rhythm: regular rhythm Peripheral pulses: Peripheral pulses 2+ throughout GI Inspection: Yes normal to inspection Skin General skin exam: no rashes or lesions noted Neuro General: patient oriented x3, moves all extremities and normal sensation to monofilament Cranial nerves: Yes Equal, round and reactive pupils present Cognition (Neuro): normal cognition Extrem General: Yes normal to inspection Medical Decision Making Medical Decision Making MDM Narrative: 37-year-old male with history of migraines, anxiety, depression presents to the ER with complaints of left-sided jaw pain since August 18. Patient reports pain is worsened with chewing, biting down and in the morning when he wakes up. He has never had any history of TMJ issues. He does not use a mouth guard. Denies any injury or trauma. Denies any recent illnesses. Patient reports he called the dentist and has an appointment on to be seen. He has been alternating Motrin and Tylenol with continued pain. TTP to left TMJ. No trismus. No evidence of dental infection or abscess. No lymphadenopathy or meningeal signs. No concern for any trauma or injury per patient. Recommend continue alternating Motrin and Tylenol as needed, use a mouth guard at night time, keep appointment with his dentist on and return for any worsening foods. We discussed a soft foods and some dietary changes. Differential Diagnosis Differential Diagnoses: The differential diagnosis associated with the presentation includes TMJ Low suspicion for fracture or injury or dental infection or abscess or [employer] or RPA or pharyngitis or epiglottitis or Lucas's angina Tests considered The following testing was considered but not selected: Low suspicion for infection warranting imaging Low suspicion for injury warranting imaging Prescription Management I considered prescription management with: Antibiotic Discharge Plan Discharge Clinical Impression: Temporomandibular joint pain Patient Disposition: Home, Self-Care Instructions: Temporomandibular Disorder (ED) Additional Instructions: Buy a mouth guard and wear at night Soft food Continue to alternate Motrin or Tylenol as needed Keep your appointment with your dentist on Prescriptions: No Action clonazepam 1 mg tablet 1 tab PO BEDTIME PRN (Reason: Anxiety) bupropion HCl 300 mg tablet extended release 24 hr 1 tab PO QAM sumatriptan succinate 100 mg tablet 100 mg PO BID PRN (Reason: migraine headache) Qty: 7 0RF Rx Instructions: do not exceed 2 doses per 24 hrs opgxrshgxu-qkqdtwpyknryb-sncl [Fioricet] 50-300-40 mg capsule 1 cap PO Q8H PRN (Reason: pain) Qty: 14 0RF risperidone 1 mg tablet 1 mg PO BEDTIME omeprazole 20 mg capsule,delayed release(DR/EC) 20 mg PO DAILY Qty: 90 1RF ondansetron 4 mg tablet,disintegrating 4 mg PO Q6-8H PRN (Reason: nausea and vomiting) Qty: 15 0RF verapamil 240 mg capsule,ext rel. pellets 24 hr 240 mg PO DAILY Qty: 90 1RF hydrochlorothiazide 25 mg tablet 25 mg PO DAILY Qty: 90 1RF quetiapine 100 mg tablet 100 mg PO BEDTIME trazodone 100 mg tablet 100 mg PO BEDTIME Referrals: Physician,Unknown J [Primary Care Provider] - 1 week
== END 2023-08-24 01:20 | disposition home or self-care (01) ==
PROVIDERS: Emergency Provider Emergency Medicine
DX: M26.602 Left temporomandibular joint disorder, unspecified (principal)
CPT/HCPCS: 99282; 99284

== ENCOUNTER 2023-08-26 16:00 | Outpatient (REF) | payer OTHER, SELFPAY ==
[2023-08-26 18:56] LABS: Alanine Aminotransferase 46 U/L (0-40); Albumin Level 4.6 g/dL (3.5-5.0); Alkaline Phosphatase 145 U/L (39-117); Anion Gap 15 (12-20); Aspartate Amino Transferase 21 U/L (5-37); Bilirubin Direct < 0.2 mg/dL (0.0-0.5); Bilirubin Total 0.2 mg/dL (0.0-1.0); Blood Urea Nitrogen 11 mg/dL (9-16); Calcium 9.8 mg/dL (8.4-10.2); Carbon Dioxide 28 mmol/L (22-29); Chloride 102 mmol/L (96-108); Cholesterol 286 mg/dL (<200); Estimated Glomerular Filt Rate > 60; Glucose Random 84 mg/dL (60-115); HDL Cholesterol 44 mg/dL (>40); Potassium 3.4 mmol/L (3.3-5.1); Sodium 142 mmol/L (135-145); Total Protein 8.1 g/dL (6.5-8.0); Triglycerides 411 mg/dL (<150)
[2023-08-27 05:19] LABS: Estimated Average Glucose 100 mg/dL; Hemoglobin A1c % 5.1 % (<6.0)
== END 2023-08-26 16:01 | disposition home or self-care (01) ==
LOC: HO.LAB 16:00
PROVIDERS: PCP Internal Medicine; Visit Provider Internal Medicine
DX: E87.6 Hypokalemia (principal)
CPT/HCPCS: 36415; 80048; 80061; 80076; 83036

== ENCOUNTER 2023-09-23 08:08 | Emergency (ER) | payer OTHER, SELFPAY ==
--- NOTE | ~2023-09-23 | MR_ITS ---
EXAMINATION: MR LUMBAR SPINE WITHOUT CONTRAST CLINICAL INFORMATION: Low back pain, incontinence COMPARISON: Chest CTA 02/01/[address] abdomen pelvis 04/19/2022 TECHNIQUE: MRI of the lumbar spine was obtained using routine sequences without contrast. 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 For the purposes of this examination the L5-S1 disc space can be seen on image 28, series 7. Normal lumbar lordosis is preserved. No significant spondylolisthesis. Stable height loss associated with a chronic L1 upper endplate compression fracture with associated Schmorl's node since 04/19/2022. Remaining vertebral body heights are maintained. No suspicious osseous lesion. Disc desiccation is most pronounced at L4-L5 where there is mild disc height loss posteriorly. Level by level detail as follows: L1-L2: No spinal canal or neural foraminal stenosis. L2-L3: No spinal canal or neural foraminal stenosis. L3-L4: No spinal canal or neural foraminal stenosis. L4-L5: Shallow annular disc bulge and mild bilateral facet arthrosis. No spinal canal or neural foraminal stenosis. L5-S1: Shallow annular disc bulge and mild bilateral facet arthrosis. No spinal canal or neural foraminal stenosis. The conus medullaris terminates at the level of L2. The distal spinal cord is normal in appearance. No epidural fluid collection, hematoma, or mass. No significant abnormalities of the paraspinal musculature. Subcentimeter T2 hyperintense renal lesions bilaterally presumably simple cysts, not requiring further imaging follow-up. 1.0 cm left adrenal nodule demonstrating multiyear stability, compatible with benign etiology. The abdominal aorta is of normal contour and caliber. 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 No significant spinal canal or neural foraminal stenosis at any level. Stable height loss associated with a chronic L1 upper endplate compression fracture with associated Schmorl's node since 04/19/2022.
[2023-09-23 08:46] VITALS: BP 156/88; PULSE 93; RESP 18; TEMP 36.7; O2SAT 97; BMI 35.4
--- NOTE | 2023-09-23 09:08 | PC.NURSE ---
pt reporting lower back pain that started last night while in bed. radiates down left leg with some numbness and tingling down to the toes. pt sts this has happened in the past before, a while ago . pt sts he had some bladder incontinence this morning. pt resting quietly on stretcher, rr even/unlabored.
--- NOTE | 2023-09-23 10:03 | ED.BACK ---
HPI - Back Pain/Injury General Chief Complaint: Back Pain/Injury Stated Complaint: Numbness/pain in back & legs Time Seen by Provider: 09/23/23 09:20 Source: patient Mode of arrival: ambulatory Limitations: no limitations History of Present Illness HPI Narrative: 37-year-old male history of hypertension, obesity, sciatica, migraine, atrial fibrillation not on anticoagulation presenting to the emergency department for evaluation of severe left-sided lower back pain with radiation into left lower extremity that started and woke him from his sleep at 23:00 last night. Patient reports he has history of back pain however this feels different. Patient reports that left back pain radiates into left lower extremity feels tingling from the left back region to the left knee and numbness throughout the entire left lower extremity. Patient additionally reports that this morning when he woke up he was incontinent of urine and this has never happened to him before. Able to ambulate however very uncomfortable. Denies loss of control of bowel and weakness. Related Data Home Medications Medication Instructions Recorded Confirmed bupropion HCl 300 mg 24 hr tablet, 1 tab PO QAM 10/19/21 08/13/23 extended release clonazepam 1 mg tablet 1 tab PO BEDTIME PRN Anxiety 10/19/21 08/13/23 quetiapine 100 mg tablet 100 mg PO BEDTIME 10/02/22 08/13/23 trazodone 100 mg tablet 100 mg PO BEDTIME 10/02/22 08/13/23 risperidone 1 mg tablet 1 mg PO BEDTIME 08/13/23 08/13/23 Previous Rx's Medication Instructions Recorded sumatriptan succinate 100 mg tablet 100 mg PO BID PRN migraine 02/06/23 headache #7 tabs tleybajcfl-itidxjopdliiv-dhetgrng 1 cap PO Q8H PRN pain #14 caps 08/06/23 50 mg-300 mg-40 mg capsule (Fioricet) hydrochlorothiazide 25 mg tablet 25 mg PO DAILY #90 tabs 08/13/23 omeprazole 20 mg capsule,delayed 20 mg PO DAILY #90 caps 08/13/23 release verapamil 240 mg 24 hr 240 mg PO DAILY #90 caps 08/13/23 capsule,extended release ondansetron 4 mg disintegrating 4 mg PO Q6-8H PRN nausea and 08/26/23 tablet vomiting #15 tabs Allergies Allergy/AdvReac Type Severity Reaction Status Date / Time metoclopramide [From REGLAN] Allergy Intermediate AGITATION Verified 08/24/23 00:25 prochlorperazine Allergy Intermediate AGITATION Verified 08/24/23 00:25 [From COMPAZINE] diphenhydramine AdvReac Intermediate AGITATION Verified 08/24/23 00:25 [From BENADRYL] Review of Systems Review of Systems: Yes all other systems are reviewed and are negative PMFSH Past Medical History Attestation statement: The following information was validated with the patient. Source: old records reviewed and nursing notes reviewed Medical History Primary hypertension Obstructive sleep apnea Class 2 severe obesity with body mass index (BMI) of 35 to 39.9 with serious comorbidity Kidney stone Migraine Afib Depression Anxiety GERD (gastroesophageal reflux disease) Pneumonia Surgical History History of wisdom tooth extraction Hx of cholecystectomy Hx of appendectomy Family History Family History Other Diabetes HTN (hypertension) Substance use disorder Social History Social History Housing: Apartment Alcohol intake: current Alcohol intake frequency: holidays/special occasions only Patient Tobacco Use Status: Never used Tobacco Smoked in Last 30 Days: No e-Cigarette/Vaping Use: Never Used Second Hand Smoke Exposure: No Use of substances other than those prescribed or required for medical reasons: Yes Substance Use Type: Marijuana Advance Directives: Yes Advance Directives Information Provided: Yes Advance Directives on File: No Advance Directives Date on File: 05/01/20 service: No Current occupational status: disabled Cognitive needs: No Hearing needs: No Vision needs: Yes (glasses) Physical Exam Vital Signs: Vital Signs: Last Vital Signs Temp 98.0 F 09/23/23 08:46 Pulse 93 09/23/23 08:46 Resp 18 09/23/23 08:46 BP 156/88 H 09/23/23 08:46 Pulse Ox 97 09/23/23 08:46 O2 Del Method Room Air 09/23/23 08:46 BMI result Body Mass Index 35.4 vss Appearance: Alert.? Oriented X3.? Patient appears uncomfortable. Head: Normocephalic, atraumatic, no step-offs or deformities Eyes: Pupils equal, round and reactive to light.? Neck: Normal inspection.? Neck supple.? CVS: Normal heart rate and rhythm.? Pulses normal.? Respiratory: No respiratory distress.? Breath sounds normal.? Abdomen: Soft and nontender.? Skin: Skin warm and dry.? Normal skin color.? Normal skin turgor.? Extremities: No lower extremity edema.? No calf ttp. 5/5 strength to bilateral upper and lower extremities Back: No midline tenderness, no C-spine tenderness, full range of motion, no CVA tenderness bilaterally + left lower lumbar paraspinous TTP on exam and into L buttocks. Decreased sensation to left lower extremity when compared to right lower extremity. Per patient. Painful range of motion of back with flexion, extension and internal and external rotation Neuro: Oriented X 3.? No motor deficit.? No sensory deficit. CN 2-12 intact . Ambulating with significant discomfort Course Reevaluation(s) Reevaluation #1: CBC unremarkable. Chemistry with potassium of 3.0, oral potassium ordered. Inflammatory markers slightly elevated. UA no infection. MRI of lumbar spine transitional anatomy with super new Rfances ribs at L1 and a sacralized S1 segment no significant spinal canal or neuroforaminal stenosis or foraminal stenosis. L1 chronic upper endplate compression fracture with associated dvhmorls node. Patient is still in pain. Morphine ordered. Patient to be discharged home with morphine, Toradol, Lidoderm patch. Educated patient on diagnosis and treatment plan, answered all question, patient verbalizes understanding. At this time patient will be discharged home, advised to return with new or worsening symptoms. Educated on worrisome signs and symptoms and when to return. At this time I feel comfortable discharge home. Time: 13:19 Medications Administered Discontinued Medications Generic Name Dose Route Start Last Admin Trade Name Freq PRN Reason Stop Dose Admin Cyclobenzaprine HCl 10 mg 09/23/23 10:10 09/23/23 10:22 Cyclobenzaprine Hcl 10 Mg Tablet PO 09/23/23 10:11 10 mg ONCE ONE Administration Ketorolac Tromethamine 30 mg 09/23/23 10:10 09/23/23 10:22 Ketorolac Tromethamine 30 Mg/Ml Vial IM 09/23/23 10:11 30 mg ONCE ONE Administration Lidocaine 1 patch 09/23/23 10:10 09/23/23 10:22 Lidocaine 4 % Patch Adh..Patch TRANSDERMA 09/23/23 10:11 1 patch ONCE ONE Administration Protocol Potassium Chloride 40 meq 09/23/23 10:45 09/23/23 11:30 Potassium Chloride Packet 20 Meq Packet PO 09/23/23 10:46 40 meq ONCE ONE Administration Medical Decision Making Medical Decision Making [facility] Narrative: 1005 37-year-old male presents with left lower back pain with radiation to left lower extremity with associated urinary incontinence this morning. On exam, + left lower lumbar paraspinous TTP on exam and into L buttocks. Decreased sensation to left lower extremity when compared to right lower extremity. Per patient. Painful range of motion of back with flexion, extension and internal and external rotation History and physical exam concerning for lumbar radiculopathy versus sciatica versus cord compression. Unlikely epidural abscess. Unlikely metabolic derangements. Plan at this time will obtain MRI as discussed with my attending to rule out cord compression/cauda equina. Differential Diagnosis Differential Diagnoses: The differential diagnosis associated with the presentation includes History and physical exam concerning for lumbar radiculopathy versus sciatica versus cord compression. Unlikely epidural abscess. Unlikely metabolic derangements. Admission/Observation Consideration of admission/observation: Escalation of care including admission/observation considered Unlikely Lab Data [facility] Lab Attestation statement: I reviewed the patient's lab results. 09/23/23 10:02 09/23/23 10:02 Labs: Lab Results 09/23/23 09/23/23 Range/Units 10:02 10:11 WBC 8.0 (4.8-10.8) X10*3/uL RBC 5.14 (4.60-5.80) X10*6/uL Hgb 14.3 (14.0-18.0) g/dl Hct 41.2 L (42.0-52.0) % MCV 80.2 (80.0-98.0) fL MCH 27.8 (27.0-33.0) pg MCHC 34.7 (31.0-36.0) g/dl RDW 13.2 (11.0-16.0) % Plt Count 304 (160-400) X10*3/uL MPV 8.2 L (9.4-12.4) fL Immature Gran % (Auto) 0.4 (0.0-0.4) % Neut % (Auto) 54.6 (45-73) % Lymph % (Auto) 32.7 (20-40) % [place] % (Auto) 9.5 (2-11) % Eos % (Auto) 2.3 (0-4) % Baso % (Auto) 0.5 (0-2) % Lymph # (Auto) 2.6 (1.2-4.9) X10*3/uL [place] # (Auto) 0.8 (0.1-1.2) X10*3/uL Eos # (Auto) 0.2 (0.0-0.4) X10*3/uL Baso # (Auto) 0.0 (0.0-0.2) X10*3/uL Abs Immat Gran (auto) 0.03 (0.00-0.03) X10*3/uL Absolute Neuts (auto) 4.4 (2.0-8.3) x10*3/uL Absolute Nucleated RBC 0.000 (0.0-0.012) X10*3/uL Nucleated RBC % (auto) 0.0 (0.0-0.2) /100WBC ESR 20 H (0-15) MM/HR Sodium 140 (135-145) mmol/L Potassium 3.0 L (3.3-5.1) mmol/L Chloride 103 (96-108) mmol/L Carbon Dioxide 27 (22-29) mmol/L Anion Gap 13 (12-20) BUN 9 (9-16) mg/dL Creatinine 0.78 (0.5-1.4) mg/dL Estim Creat Clear Calc 154.6 Estimated GFR > 60 Random Glucose 115 (60-115) mg/dL Calcium 9.3 (8.4-10.2) mg/dL Magnesium 2.3 (1.6-2.6) mg/dL Total Bilirubin 0.2 (0.0-1.0) mg/dL AST 17 (5-37) U/L ALT 30 (0-40) U/L Alkaline Phosphatase 147 H (39-117) U/L C-Reactive Protein 1.22 H (< or = 0.50) mg/dL Total Protein 7.5 (6.5-8.0) g/dL Albumin 4.2 (3.5-5.0) g/dL Urine Color Yellow Urine Appearance Clear Urine pH 6.5 (5.0-9.0) Ur Specific [place] 1.010 (1.005-1.025) Urine Protein Negative (Neg-Trace) mg/dL Urine Glucose (UA) Negative (Negative) mg/dL Urine Ketones Negative (Negative) mg/dL Urine Blood Negative (Negative) Urine Nitrite Negative (Negative) Ur Leukocyte Esterase Negative (Negative) Independent Interpretation Interpretation: MR- due to back pain and red flag sx Radiology Impression Discussion of test interpretation with radiology: I have reviewed the radiologist's reading. External Record Review External record reviewed: Inpatient record, Office record, Outpatient record, Prior outpatient labs, Prior outpatient radiology, Primary care record and Outside ED record Prescription Management I considered prescription management with: Pain Medication Chronic Conditions Patient?s care impacted by: Other (Obesity, PASTORA) Critical Care Time Critical Care Time Critical Care Time: Yes Total Critical Care Time: 45 Attestation: I attest to this time spent taking care of the patient, obtaining history, physical, reviewing labs, imaging, speaking to my attending Discharge Plan Discharge Clinical Impression: Left lumbar radiculitis, Acute hypokalemia Patient Disposition: Home, Self-Care Instructions: Lumbar Radiculopathy (ED), Back Pain (ED), Hypokalemia (ED) Additional Instructions: Take your medications as prescribed. If you were prescribed antibiotics today, it is important that you take your medication to their entirety, do not skip any doses, do not finish them early. Follow-up with your primary care provider this week. Return to the emergency department with new or worsening symptoms. Such as fevers, chills, chest pain, shortness of breath, nausea, vomiting, dizziness, headache, vision changes, lethargy In case of emergency call 911 Prescriptions: No Action ondansetron 4 mg tablet,disintegrating 4 mg PO Q6-8H PRN (Reason: nausea and vomiting) Qty: 15 0RF clonazepam 1 mg tablet 1 tab PO BEDTIME PRN (Reason: Anxiety) bupropion HCl 300 mg tablet extended release 24 hr 1 tab PO QAM sumatriptan succinate 100 mg tablet 100 mg PO BID PRN (Reason: migraine headache) Qty: 7 0RF Rx Instructions: do not exceed 2 doses per 24 hrs apbopsnghb-qevzwvtexjkxp-blpr [Fioricet] 50-300-40 mg capsule 1 cap PO Q8H PRN (Reason: pain) Qty: 14 0RF risperidone 1 mg tablet 1 mg PO BEDTIME omeprazole 20 mg capsule,delayed release(DR/EC) 20 mg PO DAILY Qty: 90 1RF verapamil 240 mg capsule,ext rel. pellets 24 hr 240 mg PO DAILY Qty: 90 1RF hydrochlorothiazide 25 mg tablet 25 mg PO DAILY Qty: 90 1RF quetiapine 100 mg tablet 100 mg PO BEDTIME trazodone 100 mg tablet 100 mg PO BEDTIME Referrals: Marcel Cruz MD [Primary Care Provider] - 2 days Stand Alone Forms: Work/School Release
[2023-09-23 10:05] LABS: MANUAL DIFF FLAG NO
[2023-09-23 10:10] LABS: Basophils Percent Auto 0.5 % (0-2); Eosinophils Absolute Auto 0.2 X10*3/uL (0.0-0.4); Eosinophils Percent Auto 2.3 % (0-4); Hematocrit 41.2 % (42.0-52.0); Hemoglobin 14.3 g/dl (14.0-18.0); Imm Gran Abs Auto 0.03 X10*3/uL (0.00-0.03); Imm Gran Pct Auto 0.4 % (0.0-0.4); Lymphocytes Absolute Auto 2.6 X10*3/uL (1.2-4.9); Lymphocytes Percent Auto 32.7 % (20-40); Mean Corpuscular HGB Conc 34.7 g/dl (31.0-36.0); Mean Corpuscular Hemoglobin 27.8 pg (27.0-33.0); Mean Corpuscular Volume 80.2 fL (80.0-98.0); Mean Platelet Volume 8.2 fL (9.4-12.4); Monocytes Absolute Auto 0.8 X10*3/uL (0.1-1.2); Monocytes Percent Auto 9.5 % (2-11); Neutrophils Absolute Auto 4.4 x10*3/uL (2.0-8.3); Neutrophils Percent Auto 54.6 % (45-73); Platelet Count 304 X10*3/uL (160-400); Red Blood Count 5.14 X10*6/uL (4.60-5.80); Red Cell Distribution Width 13.2 % (11.0-16.0)
--- NOTE | 2023-09-23 10:17 | PC.NURSE ---
MRI screening form complete and faxed.
[2023-09-23 10:18] LABS: Appearance Urine Clear; Color Urine Yellow; Glucose Urine UA Negative (Negative); Leukocyte Esterase Urine Negative (Negative); Nitrite Urine Negative (Negative); PH 6.5 (5.0-9.0); Urine Blood Negative (Negative); Urine Ketones Negative (Negative); Urine Protein Negative (Neg-Trace)
[2023-09-23 10:22] LABS: Alanine Aminotransferase 30 U/L (0-40); Albumin Level 4.2 g/dL (3.5-5.0); Alkaline Phosphatase 147 U/L (39-117); Anion Gap 13 (12-20); Aspartate Amino Transferase 17 U/L (5-37); Bilirubin Total 0.2 mg/dL (0.0-1.0); Blood Urea Nitrogen 9 mg/dL (9-16); C Reactive Protein 1.22 mg/dL (< or = 0.50); Calcium 9.3 mg/dL (8.4-10.2); Carbon Dioxide 27 mmol/L (22-29); Chloride 103 mmol/L (96-108); Creatinine Clr Calc Pharmacy 154.6; Estimated Glomerular Filt Rate > 60; Glucose Random 115 mg/dL (60-115); Magnesium 2.3 mg/dL (1.6-2.6); Sodium 140 mmol/L (135-145); Total Protein 7.5 g/dL (6.5-8.0)
[2023-09-23] MEDS: Lidocaine 4 % Patch ADH..PATCH 1 PATCH TRANSDERMA (10:22)
[2023-09-23] MEDS: Cyclobenzaprine HCl 10 MG TABLET PO (10:22)
[2023-09-23] MEDS: Ketorolac Tromethamine 30 MG/ML VIAL IM (10:22)
[2023-09-23 11:12] LABS: Erythrocyte Sedimentation Rate 20 MM/HR (0-15)
[2023-09-23] MEDS: Potassium Chloride Packet 20 MEQ PACKET 40 MEQ PO (11:30)
[2023-09-23] MEDS: Morphine Sulfate Immed Release 15 MG TABLET PO (13:29)
[2023-09-23 13:32] VITALS: BP 152/88; PULSE 84; RESP 16; TEMP 37; O2SAT 95
== END 2023-09-23 13:39 | disposition home or self-care (01) ==
PROVIDERS: Physician Assistant; Emergency Provider Emergency Medicine Emergency Medical Services; PCP Internal Medicine
DX: M54.16 Radiculopathy, lumbar region (principal); E87.6 Hypokalemia; R20.0 Anesthesia of skin; I48.91 Unspecified atrial fibrillation; M79.605 Pain in left leg; Z79.899 Other long term (current) drug therapy
CPT/HCPCS: 36415; 72148; 80053; 81003; 83735; 85025; 85652; 86140; 96372; 99285; J1885

== ENCOUNTER 2023-09-27 21:19 | Emergency (ER) | payer OTHER, SELFPAY ==
[2023-09-27 21:27] VITALS: BP 150/90; PULSE 93; RESP 20; TEMP 36.6; O2SAT 96; BMI 35.8
[2023-09-27 21:43] LABS: MANUAL DIFF FLAG NO
[2023-09-27 21:44] LABS: Basophils Percent Auto 0.5 % (0-2); Eosinophils Absolute Auto 0.2 X10*3/uL (0.0-0.4); Eosinophils Percent Auto 2.1 % (0-4); Hematocrit 43.5 % (42.0-52.0); Imm Gran Abs Auto 0.02 X10*3/uL (0.00-0.03); Imm Gran Pct Auto 0.2 % (0.0-0.4); Lymphocytes Percent Auto 35.1 % (20-40); Mean Corpuscular HGB Conc 34.5 g/dl (31.0-36.0); Mean Corpuscular Hemoglobin 27.5 pg (27.0-33.0); Mean Corpuscular Volume 79.8 fL (80.0-98.0); Monocytes Absolute Auto 0.7 X10*3/uL (0.1-1.2); Monocytes Percent Auto 8.2 % (2-11); Neutrophils Absolute Auto 4.6 x10*3/uL (2.0-8.3); Neutrophils Percent Auto 53.9 % (45-73); Platelet Count 309 X10*3/uL (160-400); Red Blood Count 5.45 X10*6/uL (4.60-5.80); Red Cell Distribution Width 13.1 % (11.0-16.0); White Blood Count 8.6 X10*3/uL (4.8-10.8)
[2023-09-27 21:48] LABS: Appearance Urine Clear; Color Urine Yellow; Glucose Urine UA Negative (Negative); Leukocyte Esterase Urine Trace (Negative); Nitrite Urine Negative (Negative); PH 6.5 (5.0-9.0); Specific Gravity - Urine 1.015 (1.005-1.025); UMIC TRIGGER UACC YES; Urine Blood Trace (Negative); Urine Ketones Trace mg/dL (Negative); Urine Protein Trace mg/dL (Neg-Trace)
[2023-09-27 21:57] LABS: Alanine Aminotransferase 38 U/L (0-40); Albumin Level 4.3 g/dL (3.5-5.0); Alkaline Phosphatase 131 U/L (39-117); Anion Gap 14 (12-20); Aspartate Amino Transferase 20 U/L (5-37); Bilirubin Total 0.5 mg/dL (0.0-1.0); Blood Urea Nitrogen 11 mg/dL (9-16); Calcium 9.6 mg/dL (8.4-10.2); Carbon Dioxide 27 mmol/L (22-29); Chloride 103 mmol/L (96-108); Estimated Glomerular Filt Rate > 60; Glucose Random 98 mg/dL (60-115); Potassium 3.2 mmol/L (3.3-5.1); Sodium 141 mmol/L (135-145); Total Protein 7.7 g/dL (6.5-8.0)
[2023-09-27 22:49] LABS: Bacteria Urine None Seen (None Seen); Hyaline Casts Urine 0-2 /LPF (0-2); Squamous Epithelial Cell Urine 0-2 /HPF (0-2); WBC Urine 0-5 /HPF (0-5)
[2023-09-28] MEDS: Ketorolac Tromethamine 60 MG/2 ML VIAL IM (00:04)
[2023-09-28] MEDS: Cyclobenzaprine HCl 10 MG TABLET PO (00:05)
[2023-09-28 00:07] VITALS: BP 129/92; PULSE 84; RESP 18; TEMP 36.4; O2SAT 95
--- NOTE | 2023-09-28 01:42 | ED.BACK ---
HPI - Back Pain/Injury General Chief Complaint: Back Pain/Injury Stated Complaint: back pain Time Seen by Provider: 09/27/23 23:05 Source: patient Mode of arrival: ambulatory Limitations: no limitations History of Present Illness HPI Narrative: Patient with pain in the left lower back for last 1 week had MRI done on 09/23 here in the ER which was negative for acute comes in as pain is still going on radiating to the left leg. No prior significant history of low back pain or injury no fever no chills Related Data Home Medications Medication Instructions Recorded Confirmed bupropion HCl 300 mg 24 hr tablet, 1 tab PO QAM 10/19/21 08/13/23 extended release clonazepam 1 mg tablet 1 tab PO BEDTIME PRN Anxiety 10/19/21 08/13/23 quetiapine 100 mg tablet 100 mg PO BEDTIME 10/02/22 08/13/23 trazodone 100 mg tablet 100 mg PO BEDTIME 10/02/22 08/13/23 risperidone 1 mg tablet 1 mg PO BEDTIME 08/13/23 08/13/23 Previous Rx's Medication Instructions Recorded sumatriptan succinate 100 mg tablet 100 mg PO BID PRN migraine 02/06/23 headache #7 tabs hbfsgpxiaz-bqfmzsyiuecig-mzebgqsy 1 cap PO Q8H PRN pain #14 caps 08/06/23 50 mg-300 mg-40 mg capsule (Fioricet) hydrochlorothiazide 25 mg tablet 25 mg PO DAILY #90 tabs 08/13/23 omeprazole 20 mg capsule,delayed 20 mg PO DAILY #90 caps 08/13/23 release verapamil 240 mg 24 hr 240 mg PO DAILY #90 caps 08/13/23 capsule,extended release ondansetron 4 mg disintegrating 4 mg PO Q6-8H PRN nausea and 08/26/23 tablet vomiting #15 tabs lidocaine 5 % topical patch 1 patch topical DAILY PRN pain #15 09/23/23 ea morphine 15 mg immediate release 15 mg PO Q6H PRN pain 5 days #10 09/23/23 tablet tabs cyclobenzaprine 10 mg tablet 10 mg PO Q8H #20 tabs 09/27/23 ibuprofen 600 mg tablet 600 mg PO Q6H PRN fever or pain 09/27/23 #30 tabs Allergies Allergy/AdvReac Type Severity Reaction Status Date / Time metoclopramide [From REGLAN] Allergy Intermediate AGITATION Verified 09/27/23 21:27 prochlorperazine Allergy Intermediate AGITATION Verified 09/27/23 21:27 [From COMPAZINE] diphenhydramine AdvReac Intermediate AGITATION Verified 09/27/23 21:27 [From BENADRYL] Review of Systems Review of Systems: Yes all other systems are reviewed and are negative [facility] Past Medical History Medical History Primary hypertension Obstructive sleep apnea Class 2 severe obesity with body mass index (BMI) of 35 to 39.9 with serious comorbidity Kidney stone Migraine Afib Depression Anxiety GERD (gastroesophageal reflux disease) Pneumonia Surgical History History of wisdom tooth extraction Hx of cholecystectomy Hx of appendectomy Family History Family History Other Diabetes HTN (hypertension) Substance use disorder Social History Social History Housing: Apartment Alcohol intake: current Alcohol intake frequency: holidays/special occasions only Patient Tobacco Use Status: Never used Tobacco e-Cigarette/Vaping Use: Never Used Second Hand Smoke Exposure: No Substance Use Type: Marijuana Advance Directives: No Advance Directives Information Provided: No Advance Directives Date on File: 05/01/20 service: No Current occupational status: disabled Cognitive needs: No Hearing needs: No Vision needs: Yes (glasses) Physical Exam Vital Signs: Vital Signs: Last Vital Signs Temp 97.6 F 09/28/23 00:07 Pulse 84 09/28/23 00:07 Resp 18 09/28/23 00:07 BP 129/92 H 09/28/23 00:07 Pulse Ox 95 09/28/23 00:07 O2 Del Method Room Air 09/28/23 00:07 BMI result Body Mass Index 35.8 Appearance: Alert. Oriented X3. No acute distress. ENT: Pharynx normal. Oral Mucosa moist Neck: Normal inspection. Neck supple. CVS: Normal heart rate and rhythm. Pulses normal. Respiratory: No respiratory distress. Equal air entry bilateral, Abdomen: Soft and nontender. Bowel sounds are present, no mass palpable, no CVA tenderness back: Tenderness in his left shedding notch area no midline tenderness in the back cycles sensations were intact pace test for piriformis syndrome positive on the left Skin: Skin warm and dry. Normal skin color. Normal skin turgor. Extremities: No lower extremity edema. No calf tenderness Neuro: Oriented X 3. No motor deficit. No sensory deficit.No cerebellar signs , cranial nerves II-XII intact DTR 2+ bilateral Medications Administered Discontinued Medications Generic Name Dose Route Start Last Admin Trade Name Freq PRN Reason Stop Dose Admin Cyclobenzaprine HCl 10 mg 09/27/23 23:42 09/28/23 00:05 Cyclobenzaprine Hcl 10 Mg Tablet PO 09/27/23 23:43 10 mg ONCE ONE Administration Ketorolac Tromethamine 60 mg 09/27/23 23:42 09/28/23 00:04 Ketorolac Tromethamine 60 Mg/2 Ml Vial IM 09/27/23 23:43 60 mg ONCE ONE Administration Medical Decision Making Medical Decision Making [facility] Narrative: Patient with clinically left piriformis syndrome was given % relaxants advised to do piriformis exercises and follow up as outpatient Lab Data [facility] Lab Attestation statement: I reviewed the patient's lab results. 09/27/23 21:39 09/27/23 21:39 Labs: Lab Results 09/27/23 09/27/23 Range/Units 21:39 21:42 WBC 8.6 (4.8-10.8) X10*3/uL RBC 5.45 (4.60-5.80) X10*6/uL Hgb 15.0 (14.0-18.0) g/dl Hct 43.5 (42.0-52.0) % MCV 79.8 L (80.0-98.0) fL MCH 27.5 (27.0-33.0) pg MCHC 34.5 (31.0-36.0) g/dl RDW 13.1 (11.0-16.0) % Plt Count 309 (160-400) X10*3/uL MPV 8.0 L (9.4-12.4) fL Immature Gran % (Auto) 0.2 (0.0-0.4) % Neut % (Auto) 53.9 (45-73) % Lymph % (Auto) 35.1 (20-40) % [place] % (Auto) 8.2 (2-11) % Eos % (Auto) 2.1 (0-4) % Baso % (Auto) 0.5 (0-2) % Lymph # (Auto) 3.0 (1.2-4.9) X10*3/uL [place] # (Auto) 0.7 (0.1-1.2) X10*3/uL Eos # (Auto) 0.2 (0.0-0.4) X10*3/uL Baso # (Auto) 0.0 (0.0-0.2) X10*3/uL Abs Immat Gran (auto) 0.02 (0.00-0.03) X10*3/uL Absolute Neuts (auto) 4.6 (2.0-8.3) x10*3/uL Absolute Nucleated RBC 0.000 (0.0-0.012) X10*3/uL Nucleated RBC % (auto) 0.0 (0.0-0.2) /100WBC Sodium 141 (135-145) mmol/L Potassium 3.2 L (3.3-5.1) mmol/L Chloride 103 (96-108) mmol/L Carbon Dioxide 27 (22-29) mmol/L Anion Gap 14 (12-20) BUN 11 (9-16) mg/dL Creatinine 0.97 (0.5-1.4) mg/dL Estim Creat Clear Calc 125.0 Estimated GFR > 60 Random Glucose 98 (60-115) mg/dL Calcium 9.6 (8.4-10.2) mg/dL Total Bilirubin 0.5 (0.0-1.0) mg/dL AST 20 (5-37) U/L ALT 38 (0-40) U/L Alkaline Phosphatase 131 H (39-117) U/L Total Protein 7.7 (6.5-8.0) g/dL Albumin 4.3 (3.5-5.0) g/dL Urine Color Yellow Urine Appearance Clear Urine pH 6.5 (5.0-9.0) Ur Specific [place] 1.015 (1.005-1.025) Urine Protein Trace (Neg-Trace) mg/dL Urine Glucose (UA) Negative (Negative) mg/dL Urine Ketones Trace (Negative) mg/dL Urine Blood Trace H (Negative) Urine Nitrite Negative (Negative) Ur Leukocyte Esterase Trace H (Negative) Urine RBC 3-5 H (0-2) /HPF Urine WBC 0-5 (0-5) /HPF Ur Squamous Epith Cells 0-2 (0-2) /HPF Urine Bacteria None Seen (None Seen) Hyaline Casts 0-2 (0-2) /LPF Discharge Plan Discharge Clinical Impression: Piriformis syndrome of left side Patient Disposition: Home, Self-Care Instructions: Piriformis Syndrome (ED) Additional Instructions: Take pain medication muscle relaxants as prescribed Piriformis syndrome exercises as advised Follow-up with PCP Prescriptions: New cyclobenzaprine 10 mg tablet 10 mg PO Q8H Qty: 20 0RF ibuprofen 600 mg tablet 600 mg PO Q6H PRN (Reason: fever or pain) Qty: 30 0RF No Action ondansetron 4 mg tablet,disintegrating 4 mg PO Q6-8H PRN (Reason: nausea and vomiting) Qty: 15 0RF clonazepam 1 mg tablet 1 tab PO BEDTIME PRN (Reason: Anxiety) bupropion HCl 300 mg tablet extended release 24 hr 1 tab PO QAM sumatriptan succinate 100 mg tablet 100 mg PO BID PRN (Reason: migraine headache) Qty: 7 0RF Rx Instructions: do not exceed 2 doses per 24 hrs vtioglxmeg-aipsunmoursue-ejow [Fioricet] 50-300-40 mg capsule 1 cap PO Q8H PRN (Reason: pain) Qty: 14 0RF lidocaine 5 % adhesive patch,medicated 1 patch topical DAILY PRN (Reason: pain) Qty: 15 0RF Rx Instructions: leave on most painful area for up to 12 hrs morphine 15 mg tablet 15 mg PO Q6H PRN (Reason: pain) 5 Days Qty: 10 0RF Rx Instructions: Partial Fill upon patient request. risperidone 1 mg tablet 1 mg PO BEDTIME omeprazole 20 mg capsule,delayed release(DR/EC) 20 mg PO DAILY Qty: 90 1RF verapamil 240 mg capsule,ext rel. pellets 24 hr 240 mg PO DAILY Qty: 90 1RF hydrochlorothiazide 25 mg tablet 25 mg PO DAILY Qty: 90 1RF quetiapine 100 mg tablet 100 mg PO BEDTIME trazodone 100 mg tablet 100 mg PO BEDTIME Interventions: ED Discharge Assessment Last Done: 09/28/23 00:07 Discharge Date/Time: 09/28/23 00:09
== END 2023-09-28 00:09 | disposition home or self-care (01) ==
PROVIDERS: Emergency Provider Internal Medicine; PCP Internal Medicine
DX: G57.02 Lesion of sciatic nerve, left lower limb (principal); M54.50 Low back pain, unspecified
CPT/HCPCS: 36415; 80053; 81001; 85025; 96372; 99283; 99284; J1885

== ENCOUNTER 2023-10-21 08:30 | Outpatient (AMB) | payer OTHER, SELFPAY ==
--- NOTE | 2023-10-21 08:35 | MHC.OFFVIS ---
Intake Vital Signs 10/21/23 08:46 Height 5 ft 9 in Weight 237 lb 6 oz BMI 35.1 BP 124/80 Blood Pressure Location Rt brachial Position Sitting Respiration 18 Pulse 70 Pulse Source Pulse Oximeter Pulse Oximetry (%) 97 Oxygen Delivery Method Room Air Intake Visit Reasons: INP-PASTORA (LVM+LTR 08/28/23))-CONF Intake Note: Patient presents for PASTORA. Having trouble staying at sleep at night, loud snoring, waking up gasping for air often and morning headaches. Excessive daytime sleeping during the day and most days feeling fatigue and tired. Allergies metoclopramide [From REGLAN] Allergy (Intermediate, Verified 10/21/23 08:44) AGITATION prochlorperazine [From COMPAZINE] Allergy (Intermediate, Verified 10/21/23 08:44) AGITATION diphenhydramine [From BENADRYL] Adverse Reaction (Intermediate, Verified 10/21/23 08:44) AGITATION Medication List - Last Reconciled 10/21/23 by Giselle Rebolledo, INVENTORY CONTROL ANALYST bupropion HCl XL 1 tab PO QAM [id number]-hlxylugrcmtub-xwhe 50-300-40 mg (Fioricet) 1 cap PO Q8H PRN clonazepam 1 tab PO BEDTIME PRN cyclobenzaprine 10 mg PO Q8H hydrochlorothiazide 25 mg PO DAILY ibuprofen 600 mg PO Q6H PRN lidocaine 5% 1 patch topical DAILY PRN morphine 15 mg PO Q6H PRN 5 days omeprazole 20 mg PO DAILY ondansetron 4 mg PO Q6-8H PRN quetiapine 100 mg PO BEDTIME risperidone 1 mg PO BEDTIME rizatriptan mg PO sumatriptan succinate 100 mg PO BID PRN topiramate mg PO BID trazodone 100 mg PO BEDTIME verapamil ER 240 mg PO DAILY HPI HPI Comments History of Present Illness Details 37yr-old male presents for new in-person patient visit for sleep consultation. Pt is accompanied by his , Dyana. Patient reports past medical history significant for: Hypertension, depression and anxiety, migraine and remote history of cluster headache, GERD. Pt reports he has had increasing difficulties sleeping over the past few years, more snoring. He attributes this to weight gain. Patient also endorses: Difficulty falling asleep, difficulty staying asleep: Wakes up approximately 2-3 times per night. Snoring, apneas, gasping arousals, restless sleep, excessive daytime sleepiness. Daytime naps especially if has not slept enough. Voids twice a night usually. GERD. Vivid dreams. Morning headaches- patient notes he has just transferred care to the [facility] and [facility] in [place]. He was just transitioned up over optimal and switched to topiramate and propranolol ER 80 mg q.d.. Since he is noticing even more fatigued in slowness. Patient reports 15 headache days per month, 10-12 of which being migraine criteria. Restless legs- legs shake, move, and bounce. BLE tightness, feels like cramps. Worse at night. Interferes with sleep. Not worse after starting Trazodone. Uses the following medications for sleep: Trazodone- x's 2 yrs, Quetipaine- 4 yrs, Clonazepam 1mg qhs- 6-7 yrs, Rispirdone 1mg qhs- x's 4 yrs. Pertinent patient denials include: Denies parasomnias, hallucinations, sleep paralysis, drop attacks, history of sleep study. Sleep hygiene questionnaire: What is your usual sleep routine? Usual bedtime is at 10-11pm, falls asleep between 1-2am; wakes up 3-4 x's per night, but takes 1/2 hr to fall back asleep, Usual wake-up time is at 12pm. Do you take naps? If he has to get up early for an appointment. Is your sleep environment cool, dark, and quiet? Uses TV in the background. The room is cool. New mattress is comfortable. Do you exercise? None Do you take caffeine or other stimulants? Drinks lots of soda- Coke (2-3 16 ox bottles per day, throughout the day). Alcohol- only socially, limits Do you use electronics in bed? TV What is your work schedule? On disability due to headache burden, and subsequent mood disorder. Hypersomnolence questionnaire: Do you easily fall asleep when inactive? No, more so fatigued. Have you ever had episodes of sudden weakness associated with strong emotions? Denies [facility] Medical History (Updated 10/21/23 @ 22:37 by KENNEDY Sigala) Anemia Primary hypertension Obstructive sleep apnea Class 2 severe obesity with body mass index (BMI) of 35 to 39.9 with serious comorbidity Kidney stone Migraine Afib Depression Anxiety GERD (gastroesophageal reflux disease) Pneumonia Surgical History History of wisdom tooth extraction Hx of cholecystectomy Hx of appendectomy Family History Other Diabetes HTN (hypertension) Substance use disorder Social History Housing: Apartment Alcohol intake: current Alcohol intake frequency: holidays/special occasions only Patient Tobacco Use Status: Never used Tobacco e-Cigarette/Vaping Use: Never Used Second Hand Smoke Exposure: No Substance Use Type: Marijuana Advance Directives Date on File: 05/01/20 service: No Current occupational status: disabled Cognitive needs: No Hearing needs: No Vision needs: Yes (glasses) Questionnaire [place] Sleepiness Scale Questions Sitting and reading: would never doze Watching TV: would never doze Sitting inactive in a theater, movie etc.: would never doze As a passenger in a car for an hour without break: would never doze Lying down in the afternoon when circumstances permit: moderate chance of dozing Sitting and talking to someone: would never doze Sitting quietly after lunch without alcohol: moderate chance of dozing In a car, while stopped for a few minutes in the traffic: would never doze ESS < 10: normal, ESS > 12: pathologic: 4 Review of Systems Const All systems reviewed & are unremarkable except as noted in HPI and below Physical Exam Vital Signs: Last Vital Signs Pulse 70 10/21/23 08:46 Resp 18 10/21/23 08:46 BP 124/80 10/21/23 08:46 Pulse Ox 97 10/21/23 08:46 Oxygen Delivery Method Room Air 10/21/23 08:46 BMI result Body Mass Index 35.1 Const General: no acute distress Orientation/consciousness: patient oriented x3 HEENT Other: Mallampati stage IV Bilateral TMJ crepitus, teeth wearing. Resp Effort & Inspection: able to speak in complete sentences Neuro General: patient oriented x3 Psych Mental Status: mental status grossly normal Speech and movement: Clear speech present Attitude: cooperative Assessment & Plan Assessment & Plan (1) Fatigue: Code(s): R53.83 - Other fatigue (2) Snoring: Code(s): R06.83 - Snoring (3) Sleep difficulties: Code(s): G47.9 - Sleep disorder, unspecified (4) Restless leg syndrome: Code(s): G25.81 - Restless legs syndrome Plan Patient advised undergo HST to assess for sleep apnea. Will check labs for common etiologies of restless leg, leg cramps and fatigue symptoms. Try you [id number]-hdtpfjd mouth guard for bruxism. Pt may benefit from reading/listening to Say Timo to Insomnia by Dr Angelito Avalos or similar CBTi resources- list of resource shared. On review of recent labs, note is made of recurrent mild hypokalemia. Patient advised to increase high potassium foods. And to follow-up with PCP. Discussed that recent addition of propranolol ER 80 mg for migraine prevention may be causing a feeling of increased sluggishness in fatigued. This effect may subside with time, however if it persists, he should follow up with headache specialist at [place]. He also notes that his soda intake has to sit flat, this is likely the effect of the topiramate he recently started again for migraine prevention. As this is not overly bothersome and may help him to decrease his soda intake, I would continue this. Follow-up upon review of above and in 3-6 months or sooner as needed. Patient seen in collaboration w/ Dr Emilee Lind. Orders: Orders Ferritin Today D64.9 - Anemia, unspecified, M62.838 - Other muscle spasm, R53.83 - Other fatigue Creatine Kinase Total Today D64.9 - Anemia, unspecified, M62.838 - Other muscle spasm, R53.83 - Other fatigue CRP High Sensitivity Today D64.9 - Anemia, unspecified, M62.838 - Other muscle spasm, R53.83 - Other fatigue Homocysteine Today D64.9 - Anemia, unspecified, M62.838 - Other muscle spasm, R53.83 - Other fatigue IRON PROFILE Today D64.9 - Anemia, unspecified, M62.838 - Other muscle spasm, R53.83 - Other fatigue Erythrocyte Sedimentation Rate Today D64.9 - Anemia, unspecified, M62.838 - Other muscle spasm, R53.83 - Other fatigue TSH reflex Free T4 Today D64.9 - Anemia, unspecified, M62.838 - Other muscle spasm, R53.83 - Other fatigue Vitamin B12 and Folate Today D64.9 - Anemia, unspecified, M62.838 - Other muscle spasm, R53.83 - Other fatigue Methylmalonic Acid Today D64.9 - Anemia, unspecified, M62.838 - Other muscle spasm, R53.83 - Other fatigue RT home sleep study Today G47.9 - Sleep disorder, unspecified, R06.83 - Snoring, R53.83 - Other fatigue Basic Metabolic Panel Today I10 - Essential (primary) hypertension, R53.83 - Other fatigue Telehealth Telehealth Location of provider rendering services: practice address Location of patient: address on file Patient Identification confirmed using: Name, : Yes Telehealth method: voice only Patient verbally consented to treatment: Yes Patient verbally consented to billing insurance company: Yes Patient informed of any privacy concerns related to visit: Yes Coding Level of Care Code New Pt Level 4 (95689) Diagnoses Fatigue R53.83 Snoring R06.83 Sleep difficulties G47.9 Restless leg syndrome G25.81
[2023-10-21 08:46] VITALS: BP 124/80; PULSE 70; RESP 18; O2SAT 97; BMI 35.1
== END 2023-10-21 10:08 | disposition home or self-care (01) ==
PROVIDERS: PCP Internal Medicine; Visit Provider Nurse Practitioner Family
DX: R53.83 Other fatigue (principal); R06.83 Snoring; G47.9 Sleep disorder, unspecified; G25.81 Restless legs syndrome
CPT/HCPCS: 99204

== ENCOUNTER → 2023-10-21 08:30 | Outpatient (BNVA) | payer OTHER, SELFPAY | PROVIDERS: PCP Internal Medicine; Visit Provider Nurse Practitioner Family | DX: R53.83 Other fatigue (principal); R06.83 Snoring; G47.9 Sleep disorder, unspecified; G25.81 Restless legs syndrome | CPT/HCPCS: 99202 ==

== ENCOUNTER → 2023-11-26 13:56 | Outpatient (REF) | payer OTHER, SELFPAY | LOC: HO.SL 13:56 | PROVIDERS: PCP Internal Medicine; Visit Provider Nurse Practitioner Family | DX: G47.33 Obstructive sleep apnea (adult) (pediatric) (principal); G47.9 Sleep disorder, unspecified; R06.83 Snoring; R53.83 Other fatigue | CPT/HCPCS: 95806 ==

== ENCOUNTER → 2023-11-26 14:10 | Outpatient (BNV) | payer OTHER, SELFPAY | PROVIDERS: PCP Internal Medicine; Visit Provider Internal Medicine | DX: G47.33 Obstructive sleep apnea (adult) (pediatric) (principal) | CPT/HCPCS: 95806 ==

== ENCOUNTER 2023-11-27 14:22 | Outpatient (AMB) | payer OTHER, SELFPAY ==
--- NOTE | 2023-11-27 14:41 | A.OFFPC_ITS ---
Vital Signs 11/27/23 14:42 Height 5 ft 9 in Weight 239 lb 8 oz BMI 35.4 BP 130/70 Blood Pressure Location Lt brachial Position Sitting Pulse 80 Pulse Source Pulse Oximeter Pulse Oximetry (%) 97 Oxygen Delivery Method Room Air Intake Visit Reasons: follow up Intake Note: Patient is here to follow up on RLS, HTN, PASTORA. Nurse Head Required: No Senior Cytotechnologist: Not Required per policy Accompanied by: Self / Same As Patient Allergies metoclopramide [From REGLAN] Allergy (Intermediate, Verified 11/27/23 15:22) AGITATION prochlorperazine [From COMPAZINE] Allergy (Intermediate, Verified 11/27/23 15:22) AGITATION diphenhydramine [From BENADRYL] Adverse Reaction (Intermediate, Verified 11/27/23 15:22) AGITATION Medication List - Last Reconciled 11/27/23 by Marcel Cruz MD bupropion HCl XL 1 tab PO QAM clonazepam 1 tab PO BEDTIME PRN hydrochlorothiazide 25 mg PO DAILY ibuprofen 600 mg PO Q6H PRN omeprazole 20 mg PO DAILY ondansetron 4 mg PO Q6-8H PRN propranolol ER 80 mg PO DAILY quetiapine 100 mg PO BEDTIME risperidone 1 mg PO BEDTIME rizatriptan mg PO topiramate 25 mg PO BID trazodone 100 mg PO BEDTIME Tobacco use date assessed: 11/27/23 Dental Screening Dental Screen Date: 08/13/23 HPI follow up HPI Details 38-year-old male presents to the office to discuss his chronic medical conditions. Since last office visit, patient has seen a neurologist and a sleep specialist. Yesterday he successfully completed the sleep study and is awaiting the results. Has seen the neurologist who has ordered medications for migraine. Patient is requesting a refill for Zofran, for nausea when he gets migraines. Mental health is stable. Patient sees both a psychiatrist and a therapist from [facility]. Compliant with medications. [facility] Medical History Anemia Primary hypertension Obstructive sleep apnea Class 2 severe obesity with body mass index (BMI) of 35 to 39.9 with serious comorbidity Kidney stone Migraine Afib Depression Anxiety GERD (gastroesophageal reflux disease) Pneumonia Surgical History History of wisdom tooth extraction Hx of cholecystectomy Hx of appendectomy Family History Other Diabetes HTN (hypertension) Substance use disorder Social History Housing: Apartment Alcohol intake: current Alcohol intake frequency: holidays/special occasions only Patient Tobacco Use Status: Never used Tobacco e-Cigarette/Vaping Use: Never Used Second Hand Smoke Exposure: No Substance Use Type: Marijuana Advance Directives Date on File: 05/01/20 service: No Current occupational status: disabled Cognitive needs: No Hearing needs: No Vision needs: Yes (glasses) Questionnaire Thrive Questionnaire Date Thrive assessed: 08/13/23 JAROD-7 AMB Questionnaire JAROD-7 Date JAROD - 7 assessed: 08/13/23 Source: Developed by Drs. Diomedes Montanez, Jordana Nieves, George Duke and colleagues, with an educational francisco from [employer]. Physical exam (Primary Care) Vital Signs: Last Vital Signs Pulse 80 11/27/23 14:42 BP 130/70 11/27/23 14:42 Pulse Ox 97 11/27/23 14:42 Oxygen Delivery Method Room Air 11/27/23 14:42 BMI result Body Mass Index 35.4 BMI Assessment/Plan discussion: High (1 lb per week weight loss suggested.) BMI High, discussed plan: lifestyle, weight reduction and dietary Tobacco/Smoking Status: Tobacco use Status Tobacco use date assessed 11/27/23 11/27/23 14:50 Patient Tobacco Use Status Never used Tobacco 11/27/23 14:50 e-Cigarette/Vaping Use Never Used 11/27/23 14:50 Thrive Assessment: Date of Thrive Assessment Date Thrive assessed 08/13/23 11/27/23 14:50 Const General: cooperative and healthy appearing Nutritional Appearance: well nourished Orientation/consciousness: patient oriented x3 Limitations: no limitations HENMT Head: Yes normal to inspection Eyes General: appearance normal, both eyes and all related structures Neck Neck: Yes normal visual inspection Chest Chest palpation & inspection: normal palpation of entire chest wall Resp Effort & Inspection: normal respiratory effort Neuro General: patient oriented x3 Assessment and Plan Assessment & Plan (1) Restless leg syndrome: Code(s): G25.81 - Restless legs syndrome Plan: Condition is stable. (2) Primary hypertension: Code(s): I10 - Essential (primary) hypertension Plan: Blood pressure is stable. Continue current medications. (3) Class 2 severe obesity with body mass index (BMI) of 35 to 39.9 with serious comorbidity: Code(s): E66.01 - Morbid (severe) obesity due to excess calories Plan: Counseling on the importance of diet and exercise done. (4) Obstructive sleep apnea: Code(s): G47.33 - Obstructive sleep apnea (adult) (pediatric) Plan: Await the studies for sleep apnea. Medications: Refilled ondansetron 4 mg PO Q6-8H PRN 15 tabs 0RF nausea and vomiting Coding Level of Care Code Est Pt Level 4 (65532) Diagnoses Restless leg syndrome G25.81 Primary hypertension I10 Class 2 severe obesity with body mass index (BMI) of 35 to 39.9 with serious comorbidity E66.01 Obstructive sleep apnea G47.33
[2023-11-27 14:42] VITALS: BP 130/70; PULSE 80; O2SAT 97; BMI 35.4
== END 2023-11-27 15:16 | disposition home or self-care (01) ==
PROVIDERS: Visit Provider Internal Medicine
DX: G25.81 Restless legs syndrome (principal); E66.01 Morbid (severe) obesity due to excess calories; Z68.35 Body mass index [BMI] 35.0-35.9, adult; I10 Essential (primary) hypertension; G47.33 Obstructive sleep apnea (adult) (pediatric)
CPT/HCPCS: 99214

== ENCOUNTER 2024-03-24 10:47 | Outpatient (AMB) | payer OTHER, SELFPAY ==
--- NOTE | 2024-03-24 11:47 | MHC.PC.OV ---
Vital Signs 03/24/24 11:48 Height 5 ft Weight 237 lb 2 oz BMI 46.3 BP 110/70 Blood Pressure Location Rt brachial Position Sitting Pulse 53 Pulse Source Pulse Oximeter Pulse Oximetry (%) 97 Oxygen Delivery Method Room Air Intake Visit Reasons: 3mth f/u Intake Note: Patient is here to follow up on HTN, PASTORA, Obesity, RLS. Chief Deputy Required: No Bench Molder Apprentice: Not Required per policy Accompanied by: Self / Same As Patient Allergies metoclopramide [From REGLAN] Allergy (Intermediate, Verified 03/24/24 11:47) AGITATION prochlorperazine [From COMPAZINE] Allergy (Intermediate, Verified 03/24/24 11:47) AGITATION diphenhydramine [From BENADRYL] Adverse Reaction (Intermediate, Verified 03/24/24 11:47) AGITATION Tobacco use date assessed: 03/24/24 Dental Screening Dental Screen Date: 08/13/23 HPI 3mth f/u HPI Details 38-year-old male presents to the office to discuss his chronic medical conditions. Patient is at baseline state of health and compliant with medications. Not exercising or following any particular diet. Mental health issues are stable and he is regularly attending therapy. Patient reports of late, he has been feeling more fatigued. He has an appointment with a psychiatrist to discuss the same. [facility] Medical History Anemia Primary hypertension Obstructive sleep apnea Class 2 severe obesity with body mass index (BMI) of 35 to 39.9 with serious comorbidity Kidney stone Migraine Afib Depression Anxiety GERD (gastroesophageal reflux disease) Pneumonia Surgical History History of wisdom tooth extraction Hx of cholecystectomy Hx of appendectomy Family History Other Diabetes HTN (hypertension) Substance use disorder Social History Housing: Apartment Alcohol intake: current Alcohol intake frequency: holidays/special occasions only Patient Tobacco Use Status: Never used Tobacco e-Cigarette/Vaping Use: Never Used Second Hand Smoke Exposure: No Substance Use Type: Marijuana Advance Directives Date on File: 05/01/20 service: No Current occupational status: disabled Cognitive needs: No Hearing needs: No Vision needs: Yes (glasses) Questionnaire Thrive Questionnaire Date Thrive assessed: 08/13/23 JAROD-7 AMB Questionnaire JAROD-7 Date JAROD - 7 assessed: 08/13/23 Source: Developed by Drs. Diomedes Montanez, Jordana Nieves, George Duke and colleagues, with an educational francisco from [employer]. Physical exam (Primary Care) Vital Signs: Last Vital Signs Pulse 53 03/24/24 11:48 BP 110/70 03/24/24 11:48 Pulse Ox 97 03/24/24 11:48 Oxygen Delivery Method Room Air 03/24/24 11:48 Care Plan Goal for BP management: Blood pressure is in range. BMI result Body Mass Index 46.3 BMI Assessment/Plan discussion: High (1 lb per week weight loss suggested.) BMI High, discussed plan: lifestyle, weight reduction, dietary and physical activity Tobacco/Smoking Status: Tobacco use Status Tobacco use date assessed 03/24/24 03/24/24 11:52 Patient Tobacco Use Status Never used Tobacco 03/24/24 11:52 e-Cigarette/Vaping Use Never Used 03/24/24 11:52 Thrive Assessment: Date of Thrive Assessment Date Thrive assessed 08/13/23 03/24/24 11:52 Const General: cooperative and healthy appearing Nutritional Appearance: well nourished Orientation/consciousness: patient oriented x3 Limitations: no limitations HENMT Head: Yes normal to inspection Eyes General: appearance normal, both eyes and all related structures Neck Neck: Yes normal visual inspection Chest Chest palpation & inspection: normal palpation of entire chest wall Resp Effort & Inspection: normal respiratory effort Neuro General: patient oriented x3 Assessment and Plan Assessment & Plan (1) GERD (gastroesophageal reflux disease): Code(s): K21.9 - Gastro-esophageal reflux disease without esophagitis Plan: Condition is stable. Continue medications at same dosage. Patient was encouraged to get blood work done. (2) Class 2 severe obesity with body mass index (BMI) of 35 to 39.9 with serious comorbidity: Code(s): E66.01 - Morbid (severe) obesity due to excess calories Plan: Counseling on the importance of diet and exercise done. (3) Restless leg syndrome: Code(s): G25.81 - Restless legs syndrome (4) Fatigue: Code(s): R53.83 - Other fatigue Plan: Patient is on multiple medications for depression and mental health issues. He will be following up with a psychiatrist to discuss this further (5) Primary hypertension: Code(s): I10 - Essential (primary) hypertension Plan: Blood pressure is stable. Continue meds at same dosage. (6) Obstructive sleep apnea: Code(s): G47.33 - Obstructive sleep apnea (adult) (pediatric) Plan: Continue CPAP. Orders: Orders Basic Metabolic Panel Today E66.01 - Morbid (severe) obesity due to excess calories, G25.81 - Restless legs syndrome, K21.9 - Gastro-esophageal reflux disease without esophagitis Complete Blood Count no Diff Today E66.01 - Morbid (severe) obesity due to excess calories, G25.81 - Restless legs syndrome, K21.9 - Gastro-esophageal reflux disease without esophagitis Lipid Panel Today E66.01 - Morbid (severe) obesity due to excess calories, G25.81 - Restless legs syndrome, K21.9 - Gastro-esophageal reflux disease without esophagitis Liver Panel Today E66.01 - Morbid (severe) obesity due to excess calories, G25.81 - Restless legs syndrome, K21.9 - Gastro-esophageal reflux disease without esophagitis Thyroid Stimulating Hormone Today E66.01 - Morbid (severe) obesity due to excess calories, G25.81 - Restless legs syndrome, K21.9 - Gastro-esophageal reflux disease without esophagitis UA and rflx microscopic Today E66.01 - Morbid (severe) obesity due to excess calories, G25.81 - Restless legs syndrome, K21.9 - Gastro-esophageal reflux disease without esophagitis Coding Level of Care Code Est Pt Level 4 (82318) Complex EM visit Add On G2211 Diagnoses GERD (gastroesophageal reflux disease) K21.9 Class 2 severe obesity with body mass index (BMI) of 35 to 39.9 with serious comorbidity E66.01 Restless leg syndrome G25.81 Fatigue R53.83 Primary hypertension I10 Obstructive sleep apnea G47.33
[2024-03-24 11:48] VITALS: BP 110/70; PULSE 53; O2SAT 97; BMI 46.3
== END 2024-03-24 12:07 | disposition home or self-care (01) ==
PROVIDERS: PCP Internal Medicine; Visit Provider Internal Medicine
DX: K21.9 Gastro-esophageal reflux disease without esophagitis (principal); G25.81 Restless legs syndrome; R53.83 Other fatigue; I10 Essential (primary) hypertension; G47.33 Obstructive sleep apnea (adult) (pediatric)
CPT/HCPCS: 99214; G2211

== ENCOUNTER 2024-06-08 08:39 | Emergency (ER) | payer OTHER, SELFPAY ==
--- NOTE | ~2024-06-08 | XR_ITS ---
EXAMINATION: XR KNEE, RIGHT CLINICAL INFORMATION: Pain in knee. COMPARISON: None available. TECHNIQUE: Four views of the right knee. FINDINGS: Small joint effusion. Alignment is anatomic. Mild narrowing of the medial compartment with subchondral sclerosis. Bone mineralization is normal. XR/XR knee RT 3V IMPRESSION: Mild degenerative changes. Moderate joint effusion. No evidence of displaced fracture. CT scan recommended for further evaluation if there is clinical concern for fracture or other pathology. Electronically signed by: Stacy Quinn MD 06/08/2024 12:56 PM JOSE OLIVER
[2024-06-08 08:49] VITALS: BP 138/81; PULSE 65; RESP 16; TEMP 37; O2SAT 97; BMI 36.9
--- NOTE | 2024-06-08 09:35 | ED.LOWEXIN ---
HPI - Extremity Injury (Lower) General Chief Complaint: Extremity Injury, Lower Stated Complaint: R leg injury Time Seen by Provider: 06/08/24 09:03 Source: patient Mode of arrival: ambulatory Limitations: no limitations History of Present Illness ED Provider: DURAN CARNES PA-C HPI Narrative: 38 year old male with pmhx significant for hypertension, obesity, sciatica, migraine, AFib not on anticoagulation presents to the ED today for evaluation of right knee pain for the past week and a half after descending the stairs and stepping wrong, causing his right knee to twist. He did not hear/ feel a pop. He did not fall to the ground or strike his head. He has been able to ambulate with some discomfort since, worsening over the last 1.5 weeks. Reports he has been able to climb the 3 sets of stairs to his apartment every day. He has been taking tylenol at home with minimal relief. Last dose a 0630 this morning. Denies new injury/ blunt trauma. No history of surgerys on the right knee. Denies falls. Denies fever, chills, neck or back pain, numbness/tingling/weakness of the RLE. Related Data Home Medications ?Medication ?Instructions ?Recorded ?Confirmed bupropion HCl 300 mg 24 hr tablet, 1 tab PO QAM 10/19/21 10/21/23 extended release clonazepam 1 mg tablet 1 tab PO BEDTIME PRN Anxiety 10/19/21 10/21/23 quetiapine 100 mg tablet 100 mg PO BEDTIME 10/02/22 10/21/23 trazodone 100 mg tablet 100 mg PO BEDTIME 10/02/22 10/21/23 risperidone 1 mg tablet 1 mg PO BEDTIME 08/13/23 10/21/23 rizatriptan 10 mg disintegrating mg PO 10/21/23 10/21/23 tablet propranolol 80 mg capsule,24 80 mg PO DAILY 11/27/23 hr,extended release topiramate 25 mg tablet 25 mg PO BID 11/27/23 Previous Rx's ?Medication ?Instructions ?Recorded ibuprofen 600 mg tablet 600 mg PO Q6H PRN fever or pain 09/27/23 #30 tabs omeprazole 20 mg capsule,delayed 20 mg PO DAILY #90 caps 01/21/24 release hydrochlorothiazide 25 mg tablet 25 mg PO DAILY #90 tabs 02/05/24 ondansetron 4 mg disintegrating 4 mg PO Q6-8H PRN nausea and 05/20/24 tablet vomiting #15 tabs tramadol 50 mg tablet 50 mg PO Q8H PRN pain (scale score 06/08/24 4-6) #7 tabs Allergies Allergy/AdvReac Type Severity Reaction Status Date / Time metoclopramide [From REGLAN] Allergy Intermediate AGITATION Verified 06/08/24 08:51 prochlorperazine Allergy Intermediate AGITATION Verified 06/08/24 08:51 [From COMPAZINE] diphenhydramine AdvReac Intermediate AGITATION Verified 06/08/24 08:51 [From BENADRYL] Review of Systems Review of Systems: Constitutional: No fever, chills, fatigue, night sweats, weight changes ENT/Mouth: No ear pain, hearing loss, nasal congestion, sinus pain, rhinorrhea, sore throat Eyes: No eye pain, swelling, redness, vision changes, discharge Cardio: No chest pain, palpitations, ALANIZ, orthopnea, peripheral edema Pulm: No SOB, cough, sputum, wheezing, dyspnea, hemoptysis GI: No nausea, vomiting, hematemesis, abdominal pain, diarrhea, constipation, hematochezia, melena : No irregular bleeding, dysuria, frequency, urgency, hesitancy, hematuria, flank pain, urinary flow changes, urinary incontinence or retention MSK: No back pain, neck pain, joint pain, myalgias, +right knee pain Skin: No lesions, rashes Neuro: No weakness, numbness, paresthesias, LOC, dizziness, headache Psych: No anxiety/panic, depression, SI/HI, AH/VH All other systems reviewed and are negative. [facility] Past Medical History Attestation statement: The following information was validated with the patient. Source: old records reviewed and nursing notes reviewed Medical History Anemia Primary hypertension Obstructive sleep apnea Class 2 severe obesity with body mass index (BMI) of 35 to 39.9 with serious comorbidity Kidney stone Migraine Afib Depression Anxiety GERD (gastroesophageal reflux disease) Pneumonia Surgical History History of wisdom tooth extraction Hx of cholecystectomy Hx of appendectomy Family History Family History Other Diabetes HTN (hypertension) Substance use disorder Social History Social History Housing: Apartment Alcohol intake: current Alcohol intake frequency: holidays/special occasions only Patient Tobacco Use Status: Never used Tobacco e-Cigarette/Vaping Use: Never Used Second Hand Smoke Exposure: No Substance Use Type: Marijuana Advance Directives: No Advance Directives Information Provided: No Advance Directives Date on File: 05/01/20 Do you have a plan to hurt others: No Plan service: No Current occupational status: disabled Cognitive needs: No Hearing needs: No Vision needs: Yes (glasses) Physical Exam Vital Signs: Vital Signs: Last Vital Signs Temp 98.6 F 06/08/24 08:49 Pulse 65 06/08/24 08:49 Resp 16 06/08/24 08:49 BP 138/81 06/08/24 08:49 Pulse Ox 97 06/08/24 08:49 O2 Del Method Room Air 06/08/24 08:49 BMI result Body Mass Index 36.9 vital signs stable General: Well appearing, in no acute distress. Skin: Warm, dry, intact. No rashes or lesions. Head: Normocephalic, atraumatic. EENT: Hearing is intact b/l. Conjunctiva clear. Sclera is anicteric. PERRLA. Moist mucous membranes.? Cardiac: Chest wall symmetric. RRR Lungs: Normal respiratory effort without accessory muscle use. CTA bilaterally. Back: No midline spinous or paraspinal tenderness. No step off deformity. Ext: +right knee w/o noted swelling. small area of ecchymosis noted to anterior/medial aspect of right knee. no deformity. ttp along anterior/ medial knee without palpable deformity or crepitus. FROM intact to right knee with some pain on flexion. negative anterior/ posterior drawer test. 2+ popliteal and DP/PT pulse intact. Neuro: AOx3. Normal speech.Strength 5/5 intact throughout. Sensation intact to light touch. NV intact distally. Ambulating with steady gait. Psych: Appropriate mood and affect. Responds appropriately to questions. Course Course Course Narrative: 1320 -- x-ray right knee does not demonstrate any acute fracture. There is a small joint effusion with mild narrowing of the medial compartment with subchondral sclerosis. Discussed workup results with patient. Place in knee immobilizer and provided with crutches. Advised to be nonweightbearing until follow up with ortho. He verbalizes understanding. Advised to take Tylenol ibuprofen at home. Tramadol sent for breakthrough pain. Patient has remained stable throughout ED visit today. Discussed worrisome signs and symptoms and when to return to the ED. All questions answered at this time. Patient is agreeable with disposition and stable for discharge. Medications Administered Discontinued Medications Generic Name Dose Route Start Last Admin Trade Name Joanna PRN Reason Stop Dose Admin Oxycodone HCl 5 mg 06/08/24 09:40 06/08/24 09:46 Oxycodone Hcl Immed Release 5 Mg Tablet PO 06/08/24 09:41 5 mg ONCE ONE Administration Medical Decision Making Medical Decision Making MDM Narrative: 38 year old male with pmhx significant for hypertension, obesity, sciatica, migraine, AFib not on anticoagulation presents to the ED today for evaluation of right knee pain for the past week and a half after descending the stairs and stepping wrong, causing his right knee to twist. Vital signs stable. afebrile. he is nontoxic appearing and in NAD. On exam, right knee w/o noted swelling. small area of ecchymosis noted to anterior/medial aspect of right knee. no deformity. ttp along anterior/ medial knee without palpable deformity or crepitus. FROM intact to right knee with some pain on flexion. negative anterior/ posterior drawer test. 2+ popliteal and DP/PT pulse intact. Differential diagnosis includes contusion, msk sprain/ strain, fracture, dislocation. Unlikely bakers cyst, DVT, NV compromise, threat to limb, compartment syndrome. Plan imaging, pain control, re-evaluation. Differential Diagnosis Differential Diagnoses: The differential diagnosis associated with the presentation includes as above. Admission/Observation Not indicated. Independent Interpretation I performed an independent interpretation of an: Plain X-Ray Interpretation: xr right knee without fracture. Radiology Impression Discussion of test interpretation with radiology: I have reviewed the radiologist's reading. Radiologist Impression: EXAMINATION: XR KNEE, RIGHT CLINICAL INFORMATION: Pain in knee. COMPARISON: None available. TECHNIQUE: Four views of the right knee. FINDINGS: Small joint effusion. Alignment is anatomic. Mild narrowing of the medial compartment with subchondral sclerosis. Bone mineralization is normal. XR/XR knee RT 3V IMPRESSION: Mild degenerative changes. Moderate joint effusion. No evidence of displaced fracture. CT scan recommended for further evaluation if there is clinical concern for fracture or other pathology. Electronically signed by: Stacy Quinn MD 06/08/2024 12:56 PM EST Independent Historian Clinical information obtained from an independent historian. History obtained from or confirmed by: Spouse External Record Review External record reviewed: Inpatient record Prescription Management I considered prescription management with: Pain Medication Social Determinants Patient?s care significantly limited by Social Determinants of Health including: Other Social Determinant of Health Procedures Orthopedic Splinting/Casting Injury #1: Side: right Lower Extremity Injury Location: knee Lower Extremity Immobilizer: knee immobilizer Other Orthopedic Equipment: crutches Critical Care Time Critical Care Time Critical Care Time: No Discharge Plan Discharge Clinical Impression: Right knee sprain Patient Disposition: Home, Self-Care Instructions: Knee Sprain (ED), Crutch Instructions (ED), Knee Immobilizer (ED) Additional Instructions: You were evaluated in the ED today for right knee pain. Your x-rays do not show fracture. You likely sprained your right knee. You were placed in a knee immobilizer today and provided crutches. Please do not bear weight on your right leg until you follow-up with our orthopedic team. You have been provided with a referral. Call them to establish care. They will not call you. I recommend you take 600mg ibuprofen every 6 hours or Tylenol 650mg every 6 hours as needed for pain. If needed, you can alternate these medications so that you take one medication every 3 hours. For example, at noon take ibuprofen, then at 3pm take Tylenol, then at 6pm take ibuprofen. I have sent tramadol to your pharmacy for you to take as needed for breakthrough pain. This is a controlled substance. Use this with caution. Return with new or worsening symptoms. In the case of an emergency call 911. Prescriptions: New tramadol 50 mg tablet 50 mg PO Q8H PRN (Reason: pain (scale score 4-6)) Qty: 7 0RF No Action omeprazole 20 mg capsule,delayed release(DR/EC) 20 mg PO DAILY Qty: 90 1RF hydrochlorothiazide 25 mg tablet 25 mg PO DAILY Qty: 90 1RF ondansetron 4 mg tablet,disintegrating 4 mg PO Q6-8H PRN (Reason: nausea and vomiting) Qty: 15 0RF clonazepam 1 mg tablet 1 tab PO BEDTIME PRN (Reason: Anxiety) bupropion HCl 300 mg tablet extended release 24 hr 1 tab PO QAM ibuprofen 600 mg tablet 600 mg PO Q6H PRN (Reason: fever or pain) Qty: 30 0RF risperidone 1 mg tablet 1 mg PO BEDTIME propranolol 80 mg capsule,extended release 24 hr 80 mg PO DAILY quetiapine 100 mg tablet 100 mg PO BEDTIME trazodone 100 mg tablet 100 mg PO BEDTIME rizatriptan 10 mg tablet,disintegrating PO topiramate 25 mg tablet 25 mg PO BID Referrals: [facility] [place] [facility] [Provider Group] Marcel Cruz MD [Primary Care Provider] - Stand Alone Forms: Work/School Release Print Language: Malagasy
[2024-06-08] MEDS: oxyCODONE HCl Immed Release 5 MG TABLET PO (09:46)
--- NOTE | 2024-06-08 12:05 | PC.NURSE ---
raf bodily injury adjuster Ann Rubio contacted via [employer] re; XR read of right knee
[2024-06-08 13:35] VITALS: BP 133/83; PULSE 72; RESP 18; TEMP 36.9; O2SAT 96
== END 2024-06-08 13:35 | disposition home or self-care (01) ==
PROVIDERS: Emergency Provider Emergency Medicine; PCP Internal Medicine
DX: S83.91XA Sprain of unspecified site of right knee, initial encounter (principal); M25.561 Pain in right knee; X50.1XXA Overexertion from prolonged static or awkward postures, initial encounter; Y93.89 Activity, other specified; Y92.89 Other specified places as the place of occurrence of the external cause; Y99.8 Other external cause status; Z79.899 Other long term (current) drug therapy
CPT/HCPCS: 29505; 73562; 99283; 99284

== ENCOUNTER 2024-06-17 00:10 | Emergency (ER) | payer OTHER, SELFPAY ==
--- NOTE | 2024-06-17 | ECG_ITS ---
Test Reason : DIZZINESS Blood Pressure : / mmHG Vent. Rate : 065 BPM Atrial Rate : 065 BPM P-R Int : 150 ms QRS Dur : 104 ms QT Int : 486 ms P-R-T Axes : 052 008 035 degrees QTc Int : 505 ms Sinus rhythm with frequent Premature ventricular complexes ST & T wave abnormality, consider anterior ischemia Prolonged QT Abnormal ECG When compared with ECG of 06-AUG-2023 01:45, Premature ventricular complexes are now Present Inverted T waves have replaced nonspecific T wave abnormality in Anterior leads Referred By: Generic ED Physician Electronically Signed By:Estevan Ann
[2024-06-17 00:15] VITALS: BP 142/97; PULSE 73; RESP 18; TEMP 36.2; O2SAT 95; BMI 35.7
[2024-06-17 00:34] LABS: MANUAL DIFF FLAG NO
[2024-06-17 00:35] LABS: Basophils Percent Auto 0.5 % (0-2); Eosinophils Absolute Auto 0.2 X10*3/uL (0.0-0.4); Eosinophils Percent Auto 2.8 % (0-4); Hematocrit 39.5 % (42.0-52.0); Hemoglobin 13.9 g/dl (14.0-18.0); Imm Gran Abs Auto 0.02 X10*3/uL (0.00-0.03); Imm Gran Pct Auto 0.3 % (0.0-0.4); Lymphocytes Absolute Auto 2.7 X10*3/uL (1.2-4.9); Lymphocytes Percent Auto 34.1 % (20-40); Mean Corpuscular HGB Conc 35.2 g/dl (31.0-36.0); Mean Corpuscular Volume 82.5 fL (80.0-98.0); Mean Platelet Volume 8.6 fL (9.4-12.4); Monocytes Absolute Auto 0.7 X10*3/uL (0.1-1.2); Monocytes Percent Auto 8.7 % (2-11); Neutrophils Absolute Auto 4.2 x10*3/uL (2.0-8.3); Neutrophils Percent Auto 53.6 % (45-73); Platelet Count 244 X10*3/uL (160-400); Red Blood Count 4.79 X10*6/uL (4.60-5.80); Red Cell Distribution Width 13.2 % (11.0-16.0); White Blood Count 7.9 X10*3/uL (4.8-10.8)
[2024-06-17 00:57] LABS: Troponin-I High Sensitivity < 2.7 ng/L (<3.5-35.0)
[2024-06-17 00:59] LABS: Alanine Aminotransferase 46 U/L (0-40); Albumin Level 4.1 g/dL (3.5-5.0); Alkaline Phosphatase 88 U/L (39-117); Anion Gap 13 (12-20); Aspartate Amino Transferase 27 U/L (5-37); Bilirubin Total 0.5 mg/dL (0.0-1.0); Blood Urea Nitrogen 8 mg/dL (9-16); Calcium 9.1 mg/dL (8.4-10.2); Carbon Dioxide 27 mmol/L (22-29); Chloride 105 mmol/L (96-108); Creatinine Clr Calc Pharmacy 139.3; Estimated Glomerular Filt Rate > 60; Glucose Random 112 mg/dL (60-115); Potassium 2.9 mmol/L (3.3-5.1); Sodium 142 mmol/L (135-145); Total Protein 7.1 g/dL (6.5-8.0)
[2024-06-17 01:12] LABS: Influenza A PCR NEGATIVE (Negative); Influenza B PCR NEGATIVE (Negative); Resp Syncy Virus RNA Qual PCR NEGATIVE (Negative); SARS COV2 PCR INHOUSE NEGATIVE (Negative)
[2024-06-17 01:45] VITALS: PULSE 55
[2024-06-17 01:46] VITALS: BP 128/85; PULSE 52; RESP 14; TEMP 36.4; O2SAT 96
[2024-06-17 01:56] LABS: Magnesium 2.5 mg/dL (1.6-2.6)
[2024-06-17 02:00] VITALS: PULSE 55
--- NOTE | 2024-06-17 02:24 | PC.NURSE ---
MD Stringer made aware of pt potassium level. pt ambulatory with steady gait from wr to ed7 changed to hospital attire and placed on cardiac monitoring. axox4 speaking full clear sentences, skin wpd, denies cp/sob/n/v/d/dizziness. reports realized hr low at home, currently 55-60 on heart monitor with occasional PVCs. iv established to L. upper arm. awaiting eval by ed provider. call díaz within reach.
--- NOTE | 2024-06-17 02:39 | ED_ITS ---
HPI - General Adult General Chief complaint: Dizziness Stated complaint: Dizziness, hbp? Time Seen by Provider: 06/17/24 02:39 Source: patient Mode of arrival: ambulatory Limitations: no limitations History of Present Illness ED Provider: HPI narrative: Patient's history of migraine headache depression on propranolol 80 mg daily along with take hydrochlorothiazide been having dizzy spell and weakness patient in the evening after taking propranolol checked her blood pressure was 105/60 with heart rate in 34 no chest no shortness a breath Related Data Home Medications ?Medication ?Instructions ?Recorded ?Confirmed bupropion HCl 300 mg 24 hr tablet, 1 tab PO QAM 10/19/21 10/21/23 extended release clonazepam 1 mg tablet 1 tab PO BEDTIME PRN Anxiety 10/19/21 10/21/23 quetiapine 100 mg tablet 100 mg PO BEDTIME 10/02/22 10/21/23 trazodone 100 mg tablet 100 mg PO BEDTIME 10/02/22 10/21/23 risperidone 1 mg tablet 1 mg PO BEDTIME 08/13/23 10/21/23 rizatriptan 10 mg disintegrating mg PO 10/21/23 10/21/23 tablet propranolol 80 mg capsule,24 80 mg PO DAILY 11/27/23 hr,extended release topiramate 25 mg tablet 25 mg PO BID 11/27/23 Previous Rx's ?Medication ?Instructions ?Recorded ibuprofen 600 mg tablet 600 mg PO Q6H PRN fever or pain 09/27/23 #30 tabs omeprazole 20 mg capsule,delayed 20 mg PO DAILY #90 caps 01/21/24 release hydrochlorothiazide 25 mg tablet 25 mg PO DAILY #90 tabs 02/05/24 ondansetron 4 mg disintegrating 4 mg PO Q6-8H PRN nausea and 05/20/24 tablet vomiting #15 tabs tramadol 50 mg tablet 50 mg PO Q8H PRN pain (scale score 06/08/24 4-6) #7 tabs Allergies Allergy/AdvReac Type Severity Reaction Status Date / Time metoclopramide [From REGLAN] Allergy Intermediate AGITATION Verified 06/17/24 00:15 prochlorperazine Allergy Intermediate AGITATION Verified 06/17/24 00:15 [From COMPAZINE] diphenhydramine AdvReac Intermediate AGITATION Verified 06/17/24 00:15 [From BENADRYL] Review of Systems 2 Review of Systems: Yes all other systems are reviewed and are negative [facility] Past Medical History Medical History Anemia Primary hypertension Obstructive sleep apnea Class 2 severe obesity with body mass index (BMI) of 35 to 39.9 with serious comorbidity Kidney stone Migraine Afib Depression Anxiety GERD (gastroesophageal reflux disease) Pneumonia Surgical History History of wisdom tooth extraction Hx of cholecystectomy Hx of appendectomy Family History Family History Other Diabetes HTN (hypertension) Substance use disorder Social History Social History Housing: Apartment Alcohol intake: current Alcohol intake frequency: holidays/special occasions only Patient Tobacco Use Status: Never used Tobacco e-Cigarette/Vaping Use: Never Used Second Hand Smoke Exposure: No Substance Use Type: Marijuana Advance Directives: No Advance Directives Information Provided: Yes Advance Directives Date on File: 05/01/20 Do you have a plan to hurt others: No Plan service: No Current occupational status: disabled Cognitive needs: No Hearing needs: No Vision needs: Yes (glasses) Physical Exam ED Vital Signs: Vital Signs - 24 hr 06/17/24 00:15 06/17/24 01:46 06/17/24 02:00 Temperature 97.1 F 97.6 F Pulse Rate 73 52 Pulse Rate [Monitor] 55 Respiratory Rate 18 14 Blood Pressure 142/97 H 128/85 Pulse Oximetry 95 96 Oxygen Delivery Method Room Air Room Air 06/17/24 03:49 Temperature 97.6 F Pulse Rate 62 Pulse Rate [Monitor] Respiratory Rate 16 Blood Pressure 118/74 Pulse Oximetry 93 Oxygen Delivery Method Room Air BMI result Body Mass Index 35.7 Appearance: Alert. Oriented X3. No acute distress. Eyes: PERRLA, No Nystagmus ENT: Pharynx normal. Oral Mucosa moist Neck: Normal inspection. Neck supple. CVS: Normal heart rate and rhythm. Pulses normal. Respiratory: No respiratory distress. Equal air entry bilateral, no wheezing/rales/rhonchi Abdomen: Soft and nontender. Bowel sounds are present, no mass palpable, no CVA tenderness Skin: Skin warm and dry. Normal skin color. Normal skin turgor. Extremities: No lower extremity edema. No calf tenderness Neuro: Oriented X 3. No motor deficit. No sensory deficit.No cerebellar signs , cranial nerves II-XII intact Medications Administered Discontinued Medications Generic Name Dose Route Start Last Admin Trade Name Carlosq PRN Reason Stop Dose Admin Potassium Chloride 10 meq in 100 mls @ 100 mls/hr 06/17/24 02:45 06/17/24 05:42 Potassium Chloride/H20 IV 06/17/24 04:44 Infused Q1H SERGEY Infusion Sodium Chloride 1,000 mls @ 999 mls/hr 06/17/24 02:57 06/17/24 05:42 Ns IV 06/17/24 03:57 Infused .Q1H1M ONE Infusion Potassium Bicarbonate 50 meq 06/17/24 02:57 06/17/24 04:13 Potassium Bicarbonate/Cit Ac 25 Meq Tablet.Eff PO 06/17/24 02:58 50 meq ONCE ONE Administration Medical Decision Making Medical Decision Making [facility] Narrative: IV potassium and p.o. potassium was given patient's heart rate stayed in 60s Differential Diagnosis Differential Diagnoses: The differential diagnosis associated with the presentation includes Lab Data [facility] Lab Attestation statement: I reviewed the patient's lab results. 06/17/24 00:30 06/17/24 00:30 Labs: Lab Results 06/17/24 Range/Units 00:30 WBC 7.9 (4.8-10.8) X10*3/uL RBC 4.79 (4.60-5.80) X10*6/uL Hgb 13.9 L (14.0-18.0) g/dl Hct 39.5 L (42.0-52.0) % MCV 82.5 (80.0-98.0) fL MCH 29.0 (27.0-33.0) pg MCHC 35.2 (31.0-36.0) g/dl RDW 13.2 (11.0-16.0) % Plt Count 244 (160-400) X10*3/uL MPV 8.6 L (9.4-12.4) fL Immature Gran % (Auto) 0.3 (0.0-0.4) % Neut % (Auto) 53.6 (45-73) % Lymph % (Auto) 34.1 (20-40) % [place] % (Auto) 8.7 (2-11) % Eos % (Auto) 2.8 (0-4) % Baso % (Auto) 0.5 (0-2) % Lymph # (Auto) 2.7 (1.2-4.9) X10*3/uL [place] # (Auto) 0.7 (0.1-1.2) X10*3/uL Eos # (Auto) 0.2 (0.0-0.4) X10*3/uL Baso # (Auto) 0.0 (0.0-0.2) X10*3/uL Abs Immat Gran (auto) 0.02 (0.00-0.03) X10*3/uL Absolute Neuts (auto) 4.2 (2.0-8.3) x10*3/uL Absolute Nucleated RBC 0.000 (0.0-0.012) X10*3/uL Nucleated RBC % (auto) 0.0 (0.0-0.2) /100WBC Sodium 142 (135-145) mmol/L Potassium 2.9 L* (3.3-5.1) mmol/L Chloride 105 (96-108) mmol/L Carbon Dioxide 27 (22-29) mmol/L Anion Gap 13 (12-20) BUN 8 L (9-16) mg/dL Creatinine 0.86 (0.5-1.4) mg/dL Estim Creat Clear Calc 139.3 Estimated GFR > 60 Random Glucose 112 (60-115) mg/dL Calcium 9.1 (8.4-10.2) mg/dL Magnesium 2.5 (1.6-2.6) mg/dL Total Bilirubin 0.5 (0.0-1.0) mg/dL AST 27 (5-37) U/L ALT 46 H (0-40) U/L Alkaline Phosphatase 88 (39-117) U/L Troponin I High Sens < 2.7 (<3.5-35.0) ng/L Total Protein 7.1 (6.5-8.0) g/dL Albumin 4.1 (3.5-5.0) g/dL Influenza Type A (PCR) NEGATIVE (Negative) Influenza Type B (PCR) NEGATIVE (Negative) RSV RNA Qual (PCR) NEGATIVE (Negative) SARS-CoV-2 RNA (RT-PCR) NEGATIVE (Negative) Independent Interpretation I performed an independent interpretation of an: EKG Interpretation: Sinus rhythm with frequent PVCs unifocal nonspecific STT wave changes no QT interval of [address] elevation no acute ischemia Discharge Plan Discharge Clinical Impression: Acute hypokalemia, Bradycardia Patient Disposition: Home, Self-Care Instructions: Hypokalemia (ED), Bradycardia (ED) Additional Instructions: Stop propranolol and hydrochlorothiazide Have food containing high potassium leg bananas and orange juice Check your heart rate is should be above 60 If heart rate continues to be less than 60 report to the ER/PCP Prescriptions: No Action omeprazole 20 mg capsule,delayed release(DR/EC) 20 mg PO DAILY Qty: 90 1RF hydrochlorothiazide 25 mg tablet 25 mg PO DAILY Qty: 90 1RF ondansetron 4 mg tablet,disintegrating 4 mg PO Q6-8H PRN (Reason: nausea and vomiting) Qty: 15 0RF clonazepam 1 mg tablet 1 tab PO BEDTIME PRN (Reason: Anxiety) bupropion HCl 300 mg tablet extended release 24 hr 1 tab PO QAM ibuprofen 600 mg tablet 600 mg PO Q6H PRN (Reason: fever or pain) Qty: 30 0RF tramadol 50 mg tablet 50 mg PO Q8H PRN (Reason: pain (scale score 4-6)) Qty: 7 0RF risperidone 1 mg tablet 1 mg PO BEDTIME propranolol 80 mg capsule,extended release 24 hr 80 mg PO DAILY quetiapine 100 mg tablet 100 mg PO BEDTIME trazodone 100 mg tablet 100 mg PO BEDTIME rizatriptan 10 mg tablet,disintegrating PO topiramate 25 mg tablet 25 mg PO BID Print Language: Kyrgyz
[2024-06-17] MEDS: 0.9 % Sodium Chloride 1,000 ML 999 ML IV (03:03)
[2024-06-17] MEDS: Potassium Chloride/H20 10 MEQ/100 ML PIGGYBACK 100 MEQ IV ×2 (03:05→04:41)
[2024-06-17 03:49] VITALS: BP 118/74; PULSE 62; RESP 16; TEMP 36.4; O2SAT 93
--- NOTE | 2024-06-17 03:49 | MHC.EDTECH ---
pt walked to restroom in room
[2024-06-17] MEDS: Potassium Bicarbonate/Cit AC 25 MEQ TABLET.EFF 50 MEQ PO (04:13)
[2024-06-17 06:05] VITALS: BP 106/66; PULSE 62; RESP 16; TEMP 36.4; O2SAT 96
== END 2024-06-17 06:06 | disposition home or self-care (01) ==
PROVIDERS: Emergency Provider Internal Medicine; PCP Internal Medicine
DX: E87.6 Hypokalemia (principal); R00.1 Bradycardia, unspecified; R42 Dizziness and giddiness; R94.31 Abnormal electrocardiogram [ECG] [EKG]; Z03.818 Encounter for observation for suspected exposure to other biological agents ruled out; Z79.899 Other long term (current) drug therapy
CPT/HCPCS: 0241U; 36415; 80053; 83735; 84484; 85025; 93005; 96361; 96374; 99285; J3480

== ENCOUNTER → 2024-06-17 00:13 | Outpatient (BNV) | payer OTHER, SELFPAY | PROVIDERS: Emergency Provider Internal Medicine; PCP Internal Medicine; Visit Provider Internal Medicine Cardiovascular Disease | DX: R94.31 Abnormal electrocardiogram [ECG] [EKG] (principal) | CPT/HCPCS: 93010 ==

== ENCOUNTER 2024-06-21 13:08 | Outpatient (AMB) | payer OTHER, SELFPAY ==
--- NOTE | 2024-06-21 13:12 | MHC.PC.OV ---
Vital Signs 06/21/24 13:13 Height 5 ft 9 in Weight 241 lb 2 oz BMI 35.6 BP 132/86 Blood Pressure Location Lt brachial Position Sitting Pulse 88 Pulse Source Pulse Oximeter Pulse Oximetry (%) 97 Oxygen Delivery Method Room Air Intake Visit Reasons: [facility] 06/17 Dizziness, hbp? 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 [employer] Well Services: Present Accompanied by: Spouse Allergies metoclopramide [From REGLAN] Allergy (Intermediate, Verified 06/21/24 13:13) AGITATION prochlorperazine [From COMPAZINE] Allergy (Intermediate, Verified 06/21/24 13:13) AGITATION diphenhydramine [From BENADRYL] Adverse Reaction (Intermediate, Verified 06/21/24 13:13) AGITATION Tobacco use date assessed: 06/21/24 Dental Screening Dental Screen Date: 08/13/23 [facility] Medical History Anemia Primary hypertension Obstructive sleep apnea Class 2 severe obesity with body mass index (BMI) of 35 to 39.9 with serious comorbidity Kidney stone Migraine Afib Depression Anxiety GERD (gastroesophageal reflux disease) Pneumonia Surgical History History of wisdom tooth extraction Hx of cholecystectomy Hx of appendectomy Family History Other Diabetes HTN (hypertension) Substance use disorder Social History Housing: Apartment Alcohol intake: current Alcohol intake frequency: holidays/special occasions only Patient Tobacco Use Status: Never used Tobacco e-Cigarette/Vaping Use: Never Used Second Hand Smoke Exposure: No Substance Use Type: Marijuana Advance Directives Date on File: 05/01/20 service: No Current occupational status: disabled Cognitive needs: No Hearing needs: No Vision needs: Yes (glasses) Questionnaire Thrive Questionnaire Date Thrive assessed: 08/13/23 AUDIT C Alcohol Use Questionnaire (AUDIT-C) 2. How many drinks containing alcohol do you have on a typical day when you are drinking?: 1 or 2 3. How often do you have six or more drinks on one occasion?: Never Total Score: 0 JAROD-7 AMB Questionnaire JAROD-7 Date JAROD - 7 assessed: 08/13/23 Source: Developed by Drs. Diomedes Montanez, Jordana Nieves, George Duke and colleagues, with an educational francisco from [employer] Physical exam (Primary Care) Vital Signs: Last Vital Signs Pulse 88 06/21/24 13:13 BP 132/86 06/21/24 13:13 Pulse Ox 97 06/21/24 13:13 Oxygen Delivery Method Room Air 06/21/24 13:13 BMI result Body Mass Index 35.6 Tobacco/Smoking Status: Tobacco use Status Tobacco use date assessed 06/21/24 06/21/24 13:19 Patient Tobacco Use Status Never used Tobacco 06/21/24 13:19 e-Cigarette/Vaping Use Never Used 06/21/24 13:19 Thrive Assessment: Date of Thrive Assessment Date Thrive assessed 08/13/23 06/21/24 13:19 Office Procedures Flu Questionnaire Does the patient have a severe egg allergy?: No Does the patient have severe life threatening allergies?: No Does the patient have a fever or illness today?: No Has the patient ever had Guillain-[place] Syndrome?: No Has the patient ever had any past reaction to a flu shot?: No Immunizations Fluarix Triv [id number] (PF) 45 mcg (15 mcg x 3)/0.5 mL IM syringe Performing Provider: Marcel Cruz MD Performing Location: [facility] Administered by: Ann James LPN on 06/21/24 13:28 Dose Route Admin Location Dispensed Lot Number Expiration Date [facility] [employer] Analyst 0.5 mL IM Left Deltoid 0.5 mL [id number] 01/10/25 [id number] [employer] VIS Given Date VIS Provided VIS Publication Date 06/21/24 Single Vaccine 21 Eligibility Eligibility Date Funding Source Not [facility] Eligible 06/21/24 Private Coding Level of Care Code Est Pt Level 4 (42056) Complex EM visit Add On G2211 Diagnoses Hypokalemia E87.6 Assessment & Plan Assessment & Plan (1) Hypokalemia: Code(s): E87.6 - Hypokalemia Plan: History of Present Illness The patient is a 38-year-old male presenting with hypokalemia and migraine headaches. He initially visited the emergency room due to feeling unwell, with notable symptoms including a slow heart rate. During the ER visit, he was diagnosed with low potassium levels. At that time, he was on propranolol and hydrochlorothiazide for managing hypertension and migraine prophylaxis, which were held due to the hypokalemia. The patient has since been consuming increased potassium intake through orange juice and a 99 mg potassium supplement daily, experiencing stabilization without recurrent episodes of weakness. Additionally, he suffers from migraine headaches, for which propranolol was prescribed. 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 He has been on disability due to this condition. The patient is actively managing major depressive disorder, anxiety, insomnia, and restless leg syndrome, and is compliant with prescribed medications and therapy. 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 - Reports low physical activity due to a recent MCL sprain. - Consuming at least two to three glasses of orange juice daily and taking a potassium supplement to manage hypokalemia. - Mental health management includes regular visits with a counselor and compliance with prescribed medications. Review of Systems - Cardiovascular: Reports no recurrent headaches. - General: Reports improved symptoms with increase in potassium intake. Physical Exam General: Appearance normal, both eyes and all related structures Nutritional Appearance: Well nourished Orientation/consciousness: Patient oriented x3 Limitations: Sprained MCL, limited mobility Head: Normal to inspection Neck: Normal visual inspection Chest: Normal palpation of entire chest wall Respiratory: Normal respiratory effort Neurology: Patient oriented x3 Results - Labs: Noted hypokalemia on previous ER evaluation. Plan Patient was informed and verbally consented to the use of an ambient scribe for clinic note documentation during this visit. Discussion Notes I discussed the importance of monitoring potassium levels to prevent hypokalemia recurrence. We agreed on increasing dietary potassium intake and using supplements. The propranolol and hydrochlorothiazide are currently on hold due to the previous low potassium levels. We planned a follow-up in two weeks with home blood pressure monitoring to decide on resuming or adjusting current medications. Alternative treatments for migraines were briefly mentioned in case headaches persist without propranolol. The patient expressed willingness to maintain mental health therapy compliance, as his depression and anxiety are ongoing issues impacting his life and work capabilities. We discussed future goals, including the potential shift in career to reduce migraine triggers associated with computer work. Patient Instructions - Increase dietary potassium intake and continue daily supplementation. - Monitor and record blood pressure at home three times a day. - Return for a follow-up visit in two weeks with blood pressure logs. - Continue mental health therapy and medication as prescribed. - Engage in walking exercises, respecting physical limitations from the recent MCL sprain. - Seek immediate care if severe symptoms of hypokalemia or headaches recur. Orders: Orders Influenza [id number] Immunization Today Z23 - Encounter for immunization Basic Metabolic Panel Today E87.6 - Hypokalemia
[2024-06-21 13:13] VITALS: BP 132/86; PULSE 88; O2SAT 97; BMI 35.6
== END 2024-06-21 13:45 | disposition home or self-care (01) ==
PROVIDERS: PCP Internal Medicine; Visit Provider Internal Medicine
DX: Z23 Encounter for immunization (principal); E87.6 Hypokalemia

== ENCOUNTER → 2024-06-21 13:08 | Outpatient (BNVA) | payer OTHER, SELFPAY | PROVIDERS: PCP Internal Medicine; Visit Provider Internal Medicine | DX: Z23 Encounter for immunization (principal); E87.6 Hypokalemia | CPT/HCPCS: 90471; 90656; 99212 ==

== ENCOUNTER 2024-06-23 18:25 | Emergency (ER) | payer OTHER, SELFPAY ==
--- NOTE | ~2024-06-23 | CT_ITS ---
EXAMINATION: CT ABDOMEN AND PELVIS WITHOUT CONTRAST CLINICAL INFORMATION: Right flank pain. COMPARISON: CT abdomen pelvis dated April 19, 2022. TECHNIQUE: Multidetector volumetric imaging was performed from the superior aspect of the liver through the pubic symphysis. Sagittal and coronal reformatted images were obtained on the technologist's workstation. This CT examination was performed using dose optimization techniques as appropriate, variously including the following: *Automated exposure control *Adjustment of mA and/or kV according to patient size (this includes techniques or standardized protocols for targeted exams where dose is matched to indication/reason for exam; i.e. extremities or head) *Use of iterative reconstruction technique DLP: 768 mGy-cm FINDINGS: LUNG BASES: The visualized lung bases are unremarkable. LIVER, GALLBLADDER, AND BILIARY TREE: The liver is normal in size, shape, and attenuation. No focal hepatic lesion or biliary ductal dilatation is present. The gallbladder is surgically absent. PANCREAS: Unremarkable. SPLEEN: Unremarkable. ADRENAL GLANDS: Unremarkable. KIDNEYS AND URETERS: Right side: There is an obstructing 3 mm calculus within the distal right ureter resulting in right-sided hydroureter and periureteric inflammation. There is fullness of the right renal pelvis without sheila right-sided hydronephrosis. Left side: The left kidney is normal in size, shape, and attenuation. No hydronephrosis, hydroureter, or calculi seen. No perinephric stranding. BLADDER: The urinary bladder is decompressed. GASTROINTESTINAL TRACT: There is a small hiatal hernia. The small and large bowel are normal in caliber. There is no pericolonic inflammatory stranding. The appendix appears to be surgically absent. ABDOMINAL WALL: No significant hernia is appreciated. LYMPH NODES: No lymphadenopathy. VASCULAR: No abdominal aortic aneurysm. PELVIC VISCERA: Unremarkable. OSSEOUS STRUCTURES: There is stable compression deformity of the superior endplate of L1. CT/CT abdomen pelvis wo IV con IMPRESSION: There is an obstructing 3 mm calculus within the distal right ureter resulting in mild right-sided hydroureter and periureteric inflammation. Fleischner guidelines were followed. Electronically signed by: Ruddy Funez DO 06/23/2024 10:06 PM [facility]
[2024-06-23 18:47] VITALS: BP 176/88; PULSE 76; O2SAT 96
[2024-06-23 18:51] VITALS: BP 161/112; PULSE 73; RESP 20; TEMP 36.6; O2SAT 98; BMI 35.5
--- NOTE | 2024-06-23 18:51 | ED_ITS ---
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 No fevers, took zofran WELDER GAS. NO diarrhea. MD elicited complaint: flank pain Pertinent past history: kidney stones Onset (ago): minute(s) (45) Pain Consistency: intermittent Location: R flank Severity: severe Quality: stabbing Radiation: RLQ Migration to: no migration Exacerbating factors: nothing Relieving factors: nothing Context: history of similar episodes Associated symptoms: nausea and dysuria Treatments prior to arrival: other Related Data Home Medications ?Medication ?Instructions ?Recorded ?Confirmed bupropion HCl 300 mg 24 hr tablet, 1 tab PO QAM 10/19/21 10/21/23 extended release clonazepam 1 mg tablet 1 tab PO BEDTIME PRN Anxiety 10/19/21 10/21/23 quetiapine 100 mg tablet 100 mg PO BEDTIME 10/02/22 10/21/23 trazodone 100 mg tablet 100 mg PO BEDTIME 10/02/22 10/21/23 risperidone 1 mg tablet 1 mg PO BEDTIME 08/13/23 10/21/23 rizatriptan 10 mg disintegrating mg PO 10/21/23 10/21/23 tablet topiramate 25 mg tablet 25 mg PO BID 11/27/23 Previous Rx's ?Medication ?Instructions ?Recorded ibuprofen 600 mg tablet 600 mg PO Q6H PRN fever or pain 09/27/23 #30 tabs omeprazole 20 mg capsule,delayed 20 mg PO DAILY #90 caps 01/21/24 release ondansetron 4 mg disintegrating 4 mg PO Q6-8H PRN nausea and 05/20/24 tablet vomiting #15 tabs tramadol 50 mg tablet 50 mg PO Q8H PRN pain (scale score 06/08/24 4-6) #7 tabs morphine 15 mg immediate release 15 mg PO Q6H PRN pain #14 tabs 06/24/24 tablet ondansetron 4 mg disintegrating 4 mg PO Q8H PRN nausea and 06/24/24 tablet vomiting #20 tabs prednisone 20 mg tablet 40 mg (2 x 20 mg) PO DAILY 3 days 06/24/24 #6 tabs tamsulosin 0.4 mg capsule 0.4 mg PO DAILY 7 days #7 caps 06/24/24 Allergies Allergy/AdvReac Type Severity Reaction Status Date / Time metoclopramide [From REGLAN] Allergy Intermediate AGITATION Verified 06/23/24 18:55 prochlorperazine Allergy Intermediate AGITATION Verified 06/23/24 18:55 [From COMPAZINE] diphenhydramine AdvReac Intermediate AGITATION Verified 06/23/24 18:55 [From BENADRYL] Review of Systems Review of Systems Constitutional : No Weight loss, No Fever, No Chills ENT/Mouth : No sore throat, No Rhinorrhea Eyes: No Swelling, No Redness Cardiovascular : No Chest Pain, No SOB, NoEdema Respiratory : No Cough, No Sputum, No Wheezing Gastrointestinal : Positive Nausea, no Vomiting, no Diarrhea, positive abdominal Pain, No Hematochezia, No Melena Genitourinary : pos Dysuria, No Urinary Frequency, No Hematuria, No Urgency Musculoskeletal : No joint pain, No Myalgias, No Joint Swelling Skin : No Skin Lesions, No rash Neuro : No Weakness, No Numbness, No Dizziness, No Headache All other systems reviewed and are negative. [facility] Past Medical History Attestation statement: The following information was validated with the patient. Source: old records reviewed Medical History Anemia Primary hypertension Obstructive sleep apnea Class 2 severe obesity with body mass index (BMI) of 35 to 39.9 with serious comorbidity Kidney stone Migraine Afib Depression Anxiety GERD (gastroesophageal reflux disease) Pneumonia Surgical History History of wisdom tooth extraction Hx of cholecystectomy Hx of appendectomy Family History Family History Other Diabetes HTN (hypertension) Substance use disorder Social History Social History Housing: Apartment Alcohol intake: current Alcohol intake frequency: holidays/special occasions only Patient Tobacco Use Status: Never used Tobacco Smoked in Last 30 Days: No e-Cigarette/Vaping Use: Never Used Second Hand Smoke Exposure: No Use of substances other than those prescribed or required for medical reasons: No Substance Use Type: Marijuana Advance Directives: No Advance Directives Information Provided: Yes Advance Directives Date on File: 05/01/20 service: No Current occupational status: disabled Cognitive needs: No Hearing needs: No Vision needs: Yes (glasses) Physical Exam ED Vital Signs: Vital Signs - 24 hr 06/23/24 18:51 06/23/24 22:00 06/23/24 22:30 Temperature 97.9 F 97.7 F Pulse Rate 73 68 Respiratory Rate 20 20 18 Blood Pressure 161/112 H 155/94 H Pulse Oximetry 98 96 Oxygen Delivery Method Room Air Room Air 06/23/24 23:45 06/23/24 23:56 Temperature 97.9 F Pulse Rate 75 Respiratory Rate 17 16 Blood Pressure 134/86 Pulse Oximetry 96 Oxygen Delivery Method Room Air BMI result Body Mass Index 35.5 Appearance: Alert. Oriented X3. No acute distress. Eyes: Pupils equal, round and reactive to light. ENT: Pharynx normal. Neck: Normal inspection. Neck supple. CVS: Normal heart rate and rhythm. Pulses normal. Respiratory: No respiratory distress. Breath sounds normal. Abdomen: Soft and mild ttp on R abdomen no rebound Skin: Skin warm and dry. Normal skin color. Normal skin turgor. Extremities: No lower extremity edema. No calf ttp Neuro: Oriented X 3. No motor deficit. No sensory deficit. Course Course Course Narrative: This is an RME: Additional HPI, ROS, PE not included below will be deferred to primary provider. RME assessment and note performed by: Kamini Christianson PA-C This is a 15-[id number]-male, with a hx of situational AFib not anticoagulated , who presents emergency department with complaints of acute onset right flank pain, urinary frequency. Patient reports nausea, took Zofran at home. Patient with tenderness palpation in the right flank. History of kidney stones. Plan: Labs, UA, CT abdomen and pelvis to rule out kidney stone. Medical Decision Making Medical Decision Making MDM Narrative: 38 yo male with PMH of HTN, PASTORA, restless leg syndrome, GERD, depression, anxiety, renal colic here with R flank and dysuria, mild ttp in R abdomen at this time basic labs, CT scan for renal colic, IV morphine/toradol for pain and start on flomax pending CT scan. Differential Diagnosis Differential Diagnoses: The differential diagnosis associated with the presentation includes renal colic, appendicitis Admission/Observation Consideration of admission/observation: Escalation of care including admission/observation considered feels much better, able to urinate stable for DC close follow up Lab Data MDM Lab Attestation statement: I reviewed the patient's lab results. 06/23/24 19:21 06/23/24 19:21 Labs: Lab Results 06/23/24 06/23/24 Range/Units 19:21 22:13 WBC 9.1 (4.8-10.8) X10*3/uL RBC 4.78 (4.60-5.80) X10*6/uL Hgb 14.0 (14.0-18.0) g/dl Hct 40.2 L (42.0-52.0) % MCV 84.1 (80.0-98.0) fL MCH 29.3 (27.0-33.0) pg MCHC 34.8 (31.0-36.0) g/dl RDW 13.4 (11.0-16.0) % Plt Count 259 (160-400) X10*3/uL MPV 8.4 L (9.4-12.4) fL Immature Gran % (Auto) 0.2 (0.0-0.4) % Neut % (Auto) 73.7 H (45-73) % Lymph % (Auto) 17.9 L (20-40) % [place] % (Auto) 6.4 (2-11) % Eos % (Auto) 1.4 (0-4) % Baso % (Auto) 0.4 (0-2) % Lymph # (Auto) 1.6 (1.2-4.9) X10*3/uL [place] # (Auto) 0.6 (0.1-1.2) X10*3/uL Eos # (Auto) 0.1 (0.0-0.4) X10*3/uL Baso # (Auto) 0.0 (0.0-0.2) X10*3/uL Abs Immat Gran (auto) 0.02 (0.00-0.03) X10*3/uL Absolute Neuts (auto) 6.7 (2.0-8.3) x10*3/uL Absolute Nucleated RBC 0.000 (0.0-0.012) X10*3/uL Nucleated RBC % (auto) 0.0 (0.0-0.2) /100WBC Sodium 143 (135-145) mmol/L Potassium 3.6 D (3.3-5.1) mmol/L Chloride 107 (96-108) mmol/L Carbon Dioxide 26 (22-29) mmol/L Anion Gap 14 (12-20) BUN 5 L (9-16) mg/dL Creatinine 0.92 (0.5-1.4) mg/dL Estim Creat Clear Calc 129.8 Estimated GFR > 60 Random Glucose 140 H (60-115) mg/dL Calcium 9.6 (8.4-10.2) mg/dL Total Bilirubin 0.3 (0.0-1.0) mg/dL Direct Bilirubin 0.1 (0.0-0.5) mg/dL AST 24 (5-37) U/L ALT 31 (0-40) U/L Alkaline Phosphatase 104 (39-117) U/L Total Protein 7.6 (6.5-8.0) g/dL Albumin 4.5 (3.5-5.0) g/dL Lipase 22 (8-78) U/L Urine Color Yellow Urine Appearance Clear Urine pH 7.0 (5.0-9.0) Ur Specific [place] 1.020 (1.005-1.025) Urine Protein 30 (1+) H (Neg-Trace) mg/dL Urine Glucose (UA) Negative (Negative) mg/dL Urine Ketones Trace (Negative) mg/dL Urine Blood Small (1+) H (Negative) Urine Nitrite Negative (Negative) Ur Leukocyte Esterase Negative (Negative) Urine RBC >20 H (0-2) /HPF Urine WBC 0-5 (0-5) /HPF Ur Squamous Epith Cells 0-2 (0-2) /HPF Urine Bacteria None Seen (None Seen) Hyaline Casts 0-2 (0-2) /LPF Independent Interpretation I performed an independent interpretation of an: CT Scan (ureteral stone) Radiology Impression Discussion of test interpretation with radiology: I have reviewed the radiologist's reading. Independent Historian Clinical information obtained from an independent historian. History obtained from or confirmed by: EMS External Record Review External record reviewed: Outpatient record Prescription Management I considered prescription management with: Pain Medication and Other Medications Administered Discontinued Medications Generic Name Dose Route Start Last Admin Trade Name Freq PRN Reason Stop Dose Admin Hydromorphone HCl 1 mg 06/23/24 23:28 06/23/24 23:45 Hydromorphone Hcl 1 Mg/Ml Syringe IVPUSH 06/23/24 23:29 1 mg ONCE ONE Administration Protocol Ketorolac Tromethamine 15 mg 06/23/24 22:16 06/23/24 22:29 Ketorolac Tromethamine 15 Mg/Ml Vial IVPUSH 06/23/24 22:17 15 mg ONCE ONE Administration Morphine Sulfate 4 mg 06/23/24 22:16 06/23/24 22:30 Morphine Sulfate 4 Mg/Ml Cartridge IVPUSH 06/23/24 22:17 4 mg ONCE ONE Administration Protocol Ondansetron HCl 4 mg 06/23/24 22:16 06/23/24 22:30 Ondansetron Hcl 4 Mg/2 Ml Vial IVPUSH 06/23/24 22:17 4 mg ONCE ONE Administration Tamsulosin HCl 0.4 mg 06/23/24 22:16 06/23/24 22:33 Tamsulosin Hcl 0.4 Mg Capsule PO 06/23/24 22:17 0.4 mg ONCE ONE Administration Critical Care Time Critical Care Time Critical Care Time: Yes Total Critical Care Time: 45 Attestation: repeat IV pain medications with good improvement and reassessment I attest to this time spent taking care of the patient Discharge Plan Discharge Clinical Impression: Ureterolithiasis Patient Disposition: Home, Self-Care Instructions: Ureteral Stones (ED) Additional Instructions: return for worsening symptoms or concerns CT scan R sided distal 3mm stone, no UTI, kidney function normal stay hydrated and drink plenty of fluids follow up with your urologist Prescriptions: New prednisone 20 mg tablet 40 mg PO DAILY 3 Days Qty: 6 0RF tamsulosin 0.4 mg capsule 0.4 mg PO DAILY 7 Days Qty: 7 0RF morphine 15 mg tablet 15 mg PO Q6H PRN (Reason: pain) Qty: 14 0RF Rx Instructions: partial fill okay; Partial Fill upon patient request. ondansetron 4 mg tablet,disintegrating 4 mg PO Q8H PRN (Reason: nausea and vomiting) Qty: 20 0RF No Action omeprazole 20 mg capsule,delayed release(DR/EC) 20 mg PO DAILY Qty: 90 1RF ondansetron 4 mg tablet,disintegrating 4 mg PO Q6-8H PRN (Reason: nausea and vomiting) Qty: 15 0RF clonazepam 1 mg tablet 1 tab PO BEDTIME PRN (Reason: Anxiety) bupropion HCl 300 mg tablet extended release 24 hr 1 tab PO QAM ibuprofen 600 mg tablet 600 mg PO Q6H PRN (Reason: fever or pain) Qty: 30 0RF tramadol 50 mg tablet 50 mg PO Q8H PRN (Reason: pain (scale score 4-6)) Qty: 7 0RF risperidone 1 mg tablet 1 mg PO BEDTIME quetiapine 100 mg tablet 100 mg PO BEDTIME trazodone 100 mg tablet 100 mg PO BEDTIME rizatriptan 10 mg tablet,disintegrating PO topiramate 25 mg tablet 25 mg PO BID Referrals: [facility] [Provider Group] (if not better can call to schedule appointment in next day or two) Print Language: Prydeinig
[2024-06-23 19:26] LABS: MANUAL DIFF FLAG NO
[2024-06-23 19:31] LABS: Basophils Percent Auto 0.4 % (0-2); Eosinophils Absolute Auto 0.1 X10*3/uL (0.0-0.4); Eosinophils Percent Auto 1.4 % (0-4); Hematocrit 40.2 % (42.0-52.0); Imm Gran Abs Auto 0.02 X10*3/uL (0.00-0.03); Imm Gran Pct Auto 0.2 % (0.0-0.4); Lymphocytes Absolute Auto 1.6 X10*3/uL (1.2-4.9); Lymphocytes Percent Auto 17.9 % (20-40); Mean Corpuscular HGB Conc 34.8 g/dl (31.0-36.0); Mean Corpuscular Hemoglobin 29.3 pg (27.0-33.0); Mean Corpuscular Volume 84.1 fL (80.0-98.0); Mean Platelet Volume 8.4 fL (9.4-12.4); Monocytes Absolute Auto 0.6 X10*3/uL (0.1-1.2); Monocytes Percent Auto 6.4 % (2-11); Neutrophils Absolute Auto 6.7 x10*3/uL (2.0-8.3); Neutrophils Percent Auto 73.7 % (45-73); Platelet Count 259 X10*3/uL (160-400); Red Blood Count 4.78 X10*6/uL (4.60-5.80); Red Cell Distribution Width 13.4 % (11.0-16.0); White Blood Count 9.1 X10*3/uL (4.8-10.8)
[2024-06-23 19:40] LABS: Alanine Aminotransferase 31 U/L (0-40); Albumin Level 4.5 g/dL (3.5-5.0); Alkaline Phosphatase 104 U/L (39-117); Anion Gap 14 (12-20); Aspartate Amino Transferase 24 U/L (5-37); Bilirubin Direct 0.1 mg/dL (0.0-0.5); Bilirubin Total 0.3 mg/dL (0.0-1.0); Blood Urea Nitrogen 5 mg/dL (9-16); Calcium 9.6 mg/dL (8.4-10.2); Carbon Dioxide 26 mmol/L (22-29); Chloride 107 mmol/L (96-108); Creatinine Clr Calc Pharmacy 129.8; Estimated Glomerular Filt Rate > 60; Glucose Random 140 mg/dL (60-115); Lipase 22 U/L (8-78); Potassium 3.6 mmol/L (3.3-5.1); Sodium 143 mmol/L (135-145); Total Protein 7.6 g/dL (6.5-8.0)
[2024-06-23 22:00] VITALS: BP 155/94; PULSE 68; RESP 20; TEMP 36.5; O2SAT 96
[2024-06-23 22:21] LABS: Appearance Urine Clear; Color Urine Yellow; Glucose Urine UA Negative (Negative); Leukocyte Esterase Urine Negative (Negative); Nitrite Urine Negative (Negative); UMIC TRIGGER UACC YES; Urine Blood Small (1+) (Negative); Urine Ketones Trace mg/dL (Negative); Urine Protein 30 (1+) mg/dL (Neg-Trace)
[2024-06-23] MEDS: Ketorolac Tromethamine 15 MG/ML VIAL IVPUSH (22:29)
[2024-06-23 22:30] VITALS: RESP 18
[2024-06-23] MEDS: Morphine Sulfate 4 MG/ML CARTRIDGE IVPUSH (22:30)
[2024-06-23] MEDS: ondansetron HCL 4 MG/2 ML VIAL IVPUSH (22:30)
[2024-06-23 22:33] LABS: Bacteria Urine None Seen (None Seen); Hyaline Casts Urine 0-2 /LPF (0-2); RBC Urine >20 /HPF (0-2); Squamous Epithelial Cell Urine 0-2 /HPF (0-2); WBC Urine 0-5 /HPF (0-5)
[2024-06-23] MEDS: Tamsulosin HCL 0.4 MG CAPSULE PO (22:33)
[2024-06-23 23:45] VITALS: RESP 17
[2024-06-23] MEDS: HYDROmorphone HCl 1 MG/ML SYRINGE IVPUSH (23:45)
--- NOTE | 2024-06-23 23:48 | PC.NURSE ---
pt biba from home, a&ox4, respirations even and unlabored. pt reporting onset of right flank pain starting today, pt reports some nausea and vomiting but denies diarrhea. pt reports taking zofran at home with no relief. 20G placed in left ac, pt medicated per mar at this time.
[2024-06-23 23:56] VITALS: BP 134/86; PULSE 75; RESP 16; TEMP 36.6; O2SAT 96
[2024-06-24] MEDS: methylPREDNISolone Sod Succ 125 MG/2 ML VIAL 60 MG IVPUSH (00:33)
[2024-06-24] MEDS: Morphine Sulfate Immed Release 15 MG TABLET PO (00:34)
[2024-06-24 00:48] VITALS: BP 134/86; PULSE 75; RESP 16; TEMP 36.6; O2SAT 96
== END 2024-06-24 00:48 | disposition home or self-care (01) ==
PROVIDERS: Physician Assistant Medical; Emergency Provider Emergency Medicine; PCP Internal Medicine
DX: N13.2 Hydronephrosis with renal and ureteral calculous obstruction (principal); I10 Essential (primary) hypertension; K21.9 Gastro-esophageal reflux disease without esophagitis; Z87.442 Personal history of urinary calculi; Z90.49 Acquired absence of other specified parts of digestive tract; Z79.899 Other long term (current) drug therapy
CPT/HCPCS: 36415; 74176; 80048; 80076; 81001; 83690; 85025; 96374; 96375; 99284; J1171; J1885; J2270; J2405; J2919

== ENCOUNTER 2024-07-05 10:10 | Outpatient (AMB) | payer OTHER, SELFPAY ==
--- NOTE | 2024-07-05 10:28 | A.OFFPC_ITS ---
Vital Signs 07/05/24 10:29 Height 5 ft 9 in Weight 243 lb BMI 35.9 BP 130/88 Blood Pressure Location Lt brachial Position Sitting Pulse 78 Pulse Source Pulse Oximeter Pulse Oximetry (%) 98 Oxygen Delivery Method Room Air Intake Visit Reasons: High BP Intake Note: Patient is here to follow up on High BP. Medical Operations Supervisor Required: No Chassis Inspector: Present Accompanied by: Spouse Allergies metoclopramide [From REGLAN] Allergy (Intermediate, Verified 07/05/24 10:29) AGITATION prochlorperazine [From COMPAZINE] Allergy (Intermediate, Verified 07/05/24 10:29) AGITATION diphenhydramine [From BENADRYL] Adverse Reaction (Intermediate, Verified 07/05/24 10:29) AGITATION Tobacco use date assessed: 07/05/24 Dental Screening Dental Screen Date: 08/13/23 [facility] Medical History Anemia Primary hypertension Obstructive sleep apnea Class 2 severe obesity with body mass index (BMI) of 35 to 39.9 with serious comorbidity Kidney stone Migraine Afib Depression Anxiety GERD (gastroesophageal reflux disease) Pneumonia Surgical History History of wisdom tooth extraction Hx of cholecystectomy Hx of appendectomy Family History Other Diabetes HTN (hypertension) Substance use disorder Social History Housing: Apartment Alcohol intake: current Alcohol intake frequency: holidays/special occasions only Patient Tobacco Use Status: Never used Tobacco e-Cigarette/Vaping Use: Never Used Second Hand Smoke Exposure: No Substance Use Type: Marijuana Advance Directives Date on File: 05/01/20 service: No Current occupational status: disabled Cognitive needs: No Hearing needs: No Vision needs: Yes (glasses) Questionnaire Thrive Questionnaire Date Thrive assessed: 08/13/23 JAROD-7 AMB Questionnaire JAROD-7 Date JAROD - 7 assessed: 08/13/23 Source: Developed by Drs. Diomedes Montanez, Jordana Nieves, George Duke and colleagues, with an educational francisco from [employer]. Physical exam (Primary Care) Vital Signs: Last Vital Signs Pulse 78 07/05/24 10:29 BP 130/88 07/05/24 10:29 Pulse Ox 98 07/05/24 10:29 Oxygen Delivery Method Room Air 07/05/24 10:29 BMI result Body Mass Index 35.9 Tobacco/Smoking Status: Tobacco use Status Tobacco use date assessed 07/05/24 07/05/24 10:29 Patient Tobacco Use Status Never used Tobacco 07/05/24 10:29 e-Cigarette/Vaping Use Never Used 07/05/24 10:29 Thrive Assessment: Date of Thrive Assessment Date Thrive assessed 08/13/23 07/05/24 10:29 Coding Level of Care Code Est Pt Level 4 (54793) Complex EM visit Add On G2211 Diagnoses Primary hypertension I10 Assessment & Plan Assessment & Plan (1) Primary hypertension: Code(s): I10 - Essential (primary) hypertension Category: Medical Plan: Amlodipine added to the regimen. Plan History of Present Illness The patient is a 38-year-old male presenting with elevated blood pressure and associated symptoms following the discontinuation of antihypertensive medication due to hypokalemia. The blood pressure began to increase intermittently after stopping the medication, as monitored using a wrist cuff. The antihypertensive medication was ceased following a severe drop in potassium levels in the emergency department. Since the cessation of the medication, the patient has experienced significant discomfort, including hot flashes, nausea, vomiting, and generally feeling unwell. The patient describes fluctuations in energy levels, ranging from excessive energy to profound fatigue. The patient reported past use of morphine in the hospital for right-sided pain attributed to a three- millimeter kidney stone, which has since passed without further incidents. The patient is currently managing mental health with medications and has regular psychiatric and therapeutic follow-ups. Social History - The patient is and resides with their spouse. - The patient is employed, necessitating a clock-in and out system for work. Review of Systems - General: Reports night sweats. - Neurological: Denies seizures or severe headaches. - Psychological: Reports managing psychiatric medications and regular appointments. Physical Exam General: Cooperative and healthy appearing Nutritional Appearance: Well nourished Orientation/consciousness: Patient oriented x3 Limitations: No limitations Head: Normal to inspection General: Appearance normal, both eyes and all related structures Neck: Normal visual inspection Chest: Normal palpation of entire chest wall Respiratory: Normal respiratory effort Neurology: Patient oriented x3 Results Plan - Restart antihypertensive therapy with Amlodipine 5 mg once daily. - Monitor blood pressure regularly and adjust medication as necessary. - Continue psychiatric medications and appointments. - No current need for urology follow-up as the kidney stone has passed. Patient was informed and verbally consented to the use of an ambient scribe for clinic note documentation during this visit. Discussion Notes I discussed with the patient the importance of managing blood pressure effectively following the discontinuation of previous medication due to hypokalemia. We reviewed the plan to initiate Amlodipine, which should help stabilize blood pressure levels. The potential side effects and the importance of regular monitoring were explained. We also discussed the management of current symptoms such as hot flashes and nausea, with the recommendation to monitor and report any severe changes. I advised continuing current psychiatric support and medication regimen. The patient acknowledged understanding the plan and agreed to adhere to the prescribed management strategies. Patient Instructions - Take Amlodipine 5 mg once daily for blood pressure control. - Monitor blood pressure at home and keep records. - Report any significant changes in symptoms or side effects. - Continue attending psychiatric appointments and taking medications as prescribed. - Seek medical attention if symptoms worsen or new symptoms develop.
[2024-07-05 10:29] VITALS: BP 130/88; PULSE 78; O2SAT 98; BMI 35.9
== END 2024-07-05 10:59 | disposition home or self-care (01) ==
PROVIDERS: PCP Internal Medicine; Visit Provider Internal Medicine
DX: I10 Essential (primary) hypertension (principal)

== ENCOUNTER → 2024-07-05 10:10 | Outpatient (BNVA) | payer OTHER, SELFPAY | PROVIDERS: PCP Internal Medicine; Visit Provider Internal Medicine | DX: I10 Essential (primary) hypertension (principal) | CPT/HCPCS: 99212 ==

== ENCOUNTER 2024-08-26 13:34 | Emergency (ER) | payer OTHER, SELFPAY ==
--- NOTE | ~2024-08-26 | CT_ITS ---
EXAMINATION: CT CERVICAL SPINE WITHOUT CONTRAST CLINICAL INFORMATION: Left-sided neck pain radiating down back. COMPARISON: 04/17/2021. TECHNIQUE: Spiral CT imaging of the cervical spine performed in axial plane without contrast. Multiplanar reformatted images were constructed from the axial data set. This CT examination was performed using dose optimization techniques as appropriate, variously including the following: *Automated exposure control *Adjustment of mA and/or kV according to patient size (this includes techniques or standardized protocols for targeted exams where dose is matched to indication/reason for exam; i.e. extremities or head) *Use of iterative reconstruction technique FINDINGS: CORONAL ALIGNMENT: -Normal SAGITTAL ALIGNMENT: -Mild straightening of the normal lordosis. No subluxations. C1-C2 AND CRANIOCERVICAL JUNCTION: -Intact and normally aligned. VERTEBRAL BODIES AND FACETS: -No fracture, compression deformity, traumatic subluxation, or suspicious bone lesion. -Normal facet alignment. Mild degenerative facet changes most notable on the left at C2-3. -Mild bony neural foraminal narrowing bilaterally at C6-7. CENTRAL CANAL: -Patent without evidence of significant stenosis or large disc herniation. DISCS: -Moderate disc degeneration and narrowing with spurring noted C6-7. PREVERTEBRAL AND PARAVERTEBRAL SOFT TISSUES: -Normal in appearance. No abnormal fluid collection. -Normal thyroid. LUNG APICES: -Minimal apical scarring bilaterally. Otherwise clear. POSTERIOR FOSSA STRUCTURES: There is no mass effect or edema. Limited evaluation. CT/CT cervical spine wo IV con IMPRESSION: 1. No CT evidence of acute cervical spine fracture or injury. 2. Mild degenerative spondylosis most significant at C6-7. No high-grade foraminal narrowing or evidence of central canal narrowing. Electronically signed by: Sven Cooley MD 08/26/2024 03:05 PM JOSE
[2024-08-26 14:03] VITALS: BP 133/96; PULSE 108; RESP 18; TEMP 36.4; O2SAT 98; BMI 34.1
--- NOTE | 2024-08-26 14:04 | ED_ITS ---
HPI - General Adult General Chief complaint: Extremity Injury, Upper Stated complaint: Neck/shoulder injury Time Seen by Provider: 08/26/24 16:37 Source: patient, RN notes reviewed and old records reviewed Mode of arrival: ambulatory Limitations: no limitations History of Present Illness ED Provider: Leon HPI narrative: Patient is a 38-year-old male presenting with complaint of left sided neck pain radiating to shoulder after lifting a heavy item 4-5 days ago. Has tried OTC medications with little relief. Denies recent trauma. Denies any weakness, numbness, tingling to arms. MD complaint: neck pain Onset (ago): day(s) Location: neck Severity: severe Pain Consistency: constant Related Data Home Medications ?Medication ?Instructions ?Recorded ?Confirmed bupropion HCl 300 mg 24 hr tablet, 1 tab PO QAM 10/19/21 10/21/23 extended release clonazepam 1 mg tablet 1 tab PO BEDTIME PRN Anxiety 10/19/21 10/21/23 quetiapine 100 mg tablet 100 mg PO BEDTIME 10/02/22 10/21/23 trazodone 100 mg tablet 100 mg PO BEDTIME 10/02/22 10/21/23 risperidone 1 mg tablet 1 mg PO BEDTIME 08/13/23 10/21/23 rizatriptan 10 mg disintegrating mg PO 10/21/23 10/21/23 tablet topiramate 25 mg tablet 25 mg PO BID 11/27/23 Previous Rx's ?Medication ?Instructions ?Recorded ibuprofen 600 mg tablet 600 mg PO Q6H PRN fever or pain 09/27/23 #30 tabs tramadol 50 mg tablet 50 mg PO Q8H PRN pain (scale score 06/08/24 4-6) #7 tabs morphine 15 mg immediate release 15 mg PO Q6H PRN pain #14 tabs 06/24/24 tablet ondansetron 4 mg disintegrating 4 mg PO Q8H PRN nausea and 06/24/24 tablet vomiting #20 tabs prednisone 20 mg tablet 40 mg (2 x 20 mg) PO DAILY 3 days 06/24/24 #6 tabs tamsulosin 0.4 mg capsule 0.4 mg PO DAILY 7 days #7 caps 06/24/24 omeprazole 20 mg capsule,delayed 20 mg PO DAILY #90 caps 07/16/24 release amlodipine 10 mg tablet 10 mg PO DAILY #30 tabs 07/26/24 ondansetron 4 mg disintegrating 4 mg PO Q6-8H PRN nausea and 08/09/24 tablet vomiting #15 tabs cyclobenzaprine 10 mg tablet 10 mg PO TID PRN muscle spasm #14 08/26/24 tabs lidocaine 5 % topical patch 1 patch topical DAILY #15 ea 08/26/24 Allergies Allergy/AdvReac Type Severity Reaction Status Date / Time metoclopramide [From REGLAN] Allergy Intermediate AGITATION Verified 08/26/24 14:06 prochlorperazine Allergy Intermediate AGITATION Verified 08/26/24 14:06 [From COMPAZINE] diphenhydramine AdvReac Intermediate AGITATION Verified 08/26/24 14:06 [From BENADRYL] Review of Systems Review of Systems: As per HPI Yes all other systems are reviewed and are negative Constitutional: Constitutional: Reports as per HPI [facility] Past Medical History Medical History Anemia Primary hypertension Obstructive sleep apnea Class 2 severe obesity with body mass index (BMI) of 35 to 39.9 with serious comorbidity Kidney stone Migraine Afib Depression Anxiety GERD (gastroesophageal reflux disease) Pneumonia Surgical History History of wisdom tooth extraction Hx of cholecystectomy Hx of appendectomy Family History Family History Other Diabetes HTN (hypertension) Substance use disorder Social History Social History Housing: Apartment Alcohol intake: current Alcohol intake frequency: holidays/special occasions only Patient Tobacco Use Status: Never used Tobacco e-Cigarette/Vaping Use: Never Used Second Hand Smoke Exposure: No Substance Use Type: Marijuana Advance Directives Date on File: 05/01/20 service: No Current occupational status: disabled Cognitive needs: No Hearing needs: No Vision needs: Yes (glasses) Physical Exam ED Vital Signs: Vital Signs - 24 hr 08/26/24 14:03 Temperature 97.5 F Pulse Rate 108 H Respiratory Rate 18 Blood Pressure 133/96 H Pulse Oximetry 98 Oxygen Delivery Method Room Air BMI result Body Mass Index 34.1 Vital signs have been reviewed and appear to be correct. Blood pressure normal. Heart rate slightly tachycardic . Respiratory rate normal. Temperature normal. Oxygen saturation normal. Const General: cooperative, healthy appearing and no acute distress Orientation/consciousness: oriented to person, oriented to place, oriented to time and patient oriented x3 Limitations: no limitations HENMT Head: Yes normocephalic and Yes atraumatic Ears: external ears normal General nose exam: Normal external nose present Face and sinus: Yes face symmetric Mouth: oropharynx normal and moist mucous membranes Throat: Yes uvula midline Eyes Pupils: Equal, round and reactive pupils present Neck Neck: Yes normal visual inspection, Yes full ROM, Yes trachea midline and Yes supple Resp Effort & Inspection: normal respiratory effort and able to speak in complete sentences Auscultation: clear to auscultation bilaterally Cardio Rate: regular rate Rhythm: regular rhythm Heart sounds: S1 normal heart sound present and S2 normal heart sound present GI Palpation (GI): Soft to palpation and nontender Auscultation: normoactive bowel sounds General: Yes no CVA tenderness Back/Spine/Pelvis Back: no CVA tenderness Cervical Spine: normal cervical lordosis, cervical muscular tenderness (left), pain with cervical ROM, cervical spasm, No Cervical spine tenderness and No step off deformity Skin General skin exam: elasticity normal and turgor normal Neuro General: oriented to person, oriented to place, oriented to time, patient oriented x3, moves all extremities, no focal motor deficits and CN's II-XI intact bilaterally Cranial nerves: Yes Equal, round and reactive pupils present Cognition (Neuro): normal cognition Extrem General: Yes full ROM, Yes no pedal edema and Yes no calf tenderness Psych Mental Status: mental status grossly normal Affect: normal affect Thought process: Normal thought process present Course Course Course Narrative: This is a rapid medical exam performed by Karolyn Quintero NP: Additional HPI, ROS, PE not included below will be deferred to primary provider. Patient is a 38-year-old male presenting with complaint of left sided neck pain for the past 4-5 days. Has tried OTC medications with little relief. Denies recent trauma. Plan: CT c spine Medical Decision Making Medical Decision Making MDM Narrative: Patient is a 38-year-old male presenting with complaint of left sided neck pain radiating to shoulder after lifting a heavy item 4-5 days ago. On exam patient is awake, A+Ox3, VS WNL, afebrile, normal neurological exam without focal deficits, physical exam findings as above. Given reported symptoms and physical exam findings, initial differential includes but is not limited to cervical strain, cervical radiculopathy. Less likely fracture or subluxation. CT notable for no fracture or subluxation. My interpretation is in agreement with the radiologist's interpretation. Results discussed with patient all questions answered. Will treat with Flexeril, lidocaine patches, advised Tylenol and ibuprofen. Instructed patient to follow-up with PCP as you may require physical therapy if symptoms do not improve. Return precautions discussed. Patient verbalized understanding of and agreement with plan. Differential Diagnosis Differential Diagnoses: The differential diagnosis associated with the presentation includes As per MDM Independent Interpretation I performed an independent interpretation of an: CT Scan Interpretation: No evidence of fracture or subluxation on CT C-spine. Radiology Impression Discussion of test interpretation with radiology: I have reviewed the radiologist's reading. Radiologist Impression: CT/CT cervical spine wo IV con IMPRESSION: 1. No CT evidence of acute cervical spine fracture or injury. 2. Mild degenerative spondylosis most significant at C6-7. No high-grade foraminal narrowing or evidence of central canal narrowing. External Record Review External record reviewed: Inpatient record, Office record and Outpatient record Prescription Management I considered prescription management with: Pain Medication and Other Discharge Plan Discharge Clinical Impression: Cervical strain Patient Disposition: Home, Self-Care Instructions: Cervical Strain (DC) Additional Instructions: You were evaluated in the emergency department with complaint of neck pain. Your imaging did not show any evidence of a fracture or other concerning findings. Your pain is likely related to a muscle strain. We recommend taking 600mg ibuprofen or 650mg Tylenol. If necessary, you can alternate these medications every three hours. For example, at noon take Tylenol, then at 3:00 take ibuprofen, then at 6:00 take Tylenol, etc. You are also being prescribed a muscle relaxer which you can use up to every 8 hours as needed. You are also being prescribed topical lidocaine patches which you can wear for up to 12 hours in a 24 hour period. Do not apply heat directly over the patches. You should follow up with your primary care provider as you may require physical therapy to improve your symptoms. Return to the emergency department if you develop worsening neck pain or stiffness, new weakness, numbness, or tingling to your arm, severe headaches, or any other concerning symptoms. Prescriptions: New cyclobenzaprine 10 mg tablet 10 mg PO TID PRN (Reason: muscle spasm) Qty: 14 0RF lidocaine 5 % adhesive patch,medicated 1 patch topical DAILY Qty: 15 0RF Rx Instructions: leave on most painful area for up to 12 hrs No Action omeprazole 20 mg capsule,delayed release(DR/EC) 20 mg PO DAILY Qty: 90 1RF amlodipine 10 mg tablet 10 mg PO DAILY Qty: 30 1RF ondansetron 4 mg tablet,disintegrating 4 mg PO Q6-8H PRN (Reason: nausea and vomiting) Qty: 15 0RF clonazepam 1 mg tablet 1 tab PO BEDTIME PRN (Reason: Anxiety) bupropion HCl 300 mg tablet extended release 24 hr 1 tab PO QAM ibuprofen 600 mg tablet 600 mg PO Q6H PRN (Reason: fever or pain) Qty: 30 0RF tramadol 50 mg tablet 50 mg PO Q8H PRN (Reason: pain (scale score 4-6)) Qty: 7 0RF prednisone 20 mg tablet 40 mg PO DAILY 3 Days Qty: 6 0RF tamsulosin 0.4 mg capsule 0.4 mg PO DAILY 7 Days Qty: 7 0RF morphine 15 mg tablet 15 mg PO Q6H PRN (Reason: pain) Qty: 14 0RF Rx Instructions: partial fill okay; Partial Fill upon patient request. ondansetron 4 mg tablet,disintegrating 4 mg PO Q8H PRN (Reason: nausea and vomiting) Qty: 20 0RF risperidone 1 mg tablet 1 mg PO BEDTIME quetiapine 100 mg tablet 100 mg PO BEDTIME trazodone 100 mg tablet 100 mg PO BEDTIME rizatriptan 10 mg tablet,disintegrating PO topiramate 25 mg tablet 25 mg PO BID Print Language: Divehi
--- OUTSIDE RECORDS SUMMARY | 2024-08-26 16:51 | XMS_ITS | Patient Health Record ---
Author Organization [facility] Address [address], [place] [id number] Care Team Providers Care Intern Name Role Phone Lupe Perry Unavailable [phone] Allergies Allergen (clinical drug ingredient) Drug/Non Drug Allergy documented on EMR Reaction Allergy Type Onset Date Status diphenhydramine Benadryl IV only - severe fatigue Drug Allergy Active metoclopramide Reglan anxiety Drug Allergy Ac tive Compazine anxiety Drug Allergy Active Reason For Referral No Information Medications Medication SIG (Take, Route, Frequency, Duration) Notes Start Date End Date Status Luvox CR 50mg 1 tablet oral daily 100 mg Active Verapamil HCl ER 180 MG 1 tablet Orally Twice a day Active SEROquel 50 MG 1 tablet Orally Once a day at night Active KlonoPIN 1 MG 1 tablet Orally Twice a day Active Amitriptyline HCl 10 MG 2 tablet Orally Once a day Active Problems Problem Type SNOMED Code ICD Code Onset Dates Problem Status W/U Status Risk Notes Problem Obesity due to excess calories (270479295) Other obesity due to excess calories (E66.09) Active confirmed Problem Recurrent major depression (12517597) Major depressive disorder, recurrent, unspecified (F33.9) Active confirmed Problem Generalized anxiety disorder (38528346) Generalized anxiety disorder (F41.1) Active confirmed Problem Chronic intractable migraine without aura (195575790363505) Chronic migraine without aura, intractable, without status migrainosus (G43.719) Active confirmed Problem Insomnia (904721794) Insomnia, unspecified (G47.00) Active confirmed Problem DOBSON - Nonalcoholic steatohepatitis (944958502) Nonalcoholic steatohepatitis (DOBSON) (K75.81) Active confirmed Problem Sciatica (01437710) Lumbago with sciatica, unspecified side (M54.40) Active confirmed Plan Of Treatment No Information Insurance Providers Payer Name Payer Address Payer Phone Subscriber Number Group Number Insured Name Patient Relationship to Insured Coverage Start Date Coverage End Date [employer] ROSEND[address] [place] [phone] [id number] Yamil Quarles Self - patient is the insured Medical (General) History Medical History History ICD Code anxiety insomnia migraines cluster headaches depression situational AFib s/p cardioversion Surgical History Surgery Date(Month/Year) appendectomy 2016 wisdom teeth 2001 Botox injection for migraine- 2nd set sc heduled for 09/201707/15/2017 Hospitalization History Reason Date(Month/Year) [facility] - extreme depression / anxiety January 2016 AFib - cardioversion 2015 AFib - cardioversion 2011 [facility] - syncope; w/u WNL 2015
--- OUTSIDE RECORDS SUMMARY | 2024-08-26 16:51 | XMS_ITS | Clinical Summary ---
Demographics Address [address] [place] [address] Home Phone Work Phone Mobile Phone Home Phone Preferred Language en Marital Status Single Latter-Day Affiliation Unknown Race White Ethnic Group Not or Lati no Author Organization [facility] ity Address [address] [place] [address] Care Team Providers Care Acute Care Physical Therapist Name Role Phone Lupe Perry DO Primary Care Provider [phone] Social History Tobacco Use Types Packs/Day Years Used Date Smoking Tobacco: Never Assessed Sex and Gender Information Value Date Recorded Sex Assigned at Not on file Legal Sex Male 3:53 AM EST Gender Identity Not on file Sexual Orientation Not on file Plan of Treatment Health Maintenance Due Date Last Done Comments DTaP,Tdap,and Td Vaccines (1 - Tdap) 10/25/2002 Hepatitis B Vaccines (1 of 3 - 19+ 3-dose series) 10/25/2002 COVID-19 Vaccine (2023-2 5 season) 2024 Influenza Vaccine (#1) 2024 HIB Vaccines Aged Out No longer eligi ble based on patient's age to complete this topic HPV Vaccines Aged Out No longer eligi ble based on patient's age to complete this topic Hepatitis A Vaccines Aged Out No long er eligible based on patient's age to complete this topic IPV Vaccines Aged Out No longer eligi ble based on patient's age to complete this topic MMR Vaccines Aged Out No longer eligi ble based on patient's age to complete this topic Meningococcal ACWY Vaccine Aged Out N o longer eligible based on patient's age to complete this topic Pneumococcal Vaccine: Pediat rics (0 to 5 Years) and At-Risk Patients (6 to 64 Years) Aged Out No longer eligible b ased on patient's age to complete this topic RSV Immunization Patients Un yonathan 20 months Aged Out No longer eligible b ased on patient's age to complete this topic Varicella Vaccines Aged Out No longer eligible based on patient's age to complete this topic Care Teams Acute Care Physical Therapist Relationship Specialty Start Date End Date Lupe Perry DO [address] [place] [id number] PCP - General Family Medicine 10/10/16
[2024-08-26 16:52] VITALS: BP 133/96; PULSE 108; RESP 18; TEMP 36.4; O2SAT 98
== END 2024-08-26 16:53 | disposition home or self-care (01) ==
PROVIDERS: Emergency Provider Emergency Medicine; PCP Internal Medicine
DX: S16.1XXA Strain of muscle, fascia and tendon at neck level, initial encounter (principal); M54.2 Cervicalgia; X50.0XXA Overexertion from strenuous movement or load, initial encounter; Y93.9 Activity, unspecified; Y92.9 Unspecified place or not applicable; Y99.8 Other external cause status
CPT/HCPCS: 72125; 99282; 99284

== ENCOUNTER → 2024-08-26 14:06 | Outpatient (BNV) | payer OTHER, SELFPAY | PROVIDERS: PCP Internal Medicine; Visit Provider Radiology Diagnostic Radiology | DX: M54.2 Cervicalgia (principal) | CPT/HCPCS: 72125 ==

== ENCOUNTER 2024-09-02 13:47 | Outpatient (AMB) | payer OTHER, SELFPAY ==
--- NOTE | 2024-09-02 14:12 | MHC.PC.OV ---
Vital Signs 09/02/24 14:14 Height 5 ft 9 in Weight 232 lb 4 oz BMI 34.3 BP 136/80 Blood Pressure Location Lt brachial Position Sitting Pulse 116 H Pulse Source Pulse Oximeter Temp 97.3 F Temp Source Temporal Artery Scan Pulse Oximetry (%) 96 Oxygen Delivery Method Room Air Intake Visit Reasons: [facility] 08/26 Neck/shoulder injury Intake Note: Patient is here to follow-up after a visit the emergency department at [facility] on 08/26/24. Sliver Former Required: No Certified Maintenance Welder: Not Required per policy Accompanied by: Self / Same As Patient Allergies metoclopramide [From REGLAN] Allergy (Intermediate, Verified 09/02/24 16:29) AGITATION prochlorperazine [From COMPAZINE] Allergy (Intermediate, Verified 09/02/24 16:29) AGITATION diphenhydramine [From BENADRYL] Adverse Reaction (Intermediate, Verified 09/02/24 16:29) AGITATION Medication List - Last Reconciled 09/02/24 by Rivka Thompson PA-C amlodipine 10 mg PO DAILY bupropion HCl XL 1 tab PO QAM clonazepam 1 tab PO BEDTIME PRN cyclobenzaprine 10 mg PO TID PRN ibuprofen 800 mg PO Q6H PRN omeprazole 20 mg PO DAILY ondansetron 4 mg PO Q6-8H PRN quetiapine 100 mg PO BEDTIME rizatriptan mg PO topiramate 25 mg PO BID tramadol 50 mg PO Q8H PRN trazodone 100 mg PO BEDTIME Tobacco use date assessed: 09/02/24 Dental Screening Dental Screen Date: 09/02/24 Did you have a dental visit in the last 12 months?: Yes Did you have a dental problem in the last 6 months where you did not have access to dental care?: No Was dental information given to patient?: Patient has dentist [facility] Medical History Spondylosis Anemia Primary hypertension Obstructive sleep apnea Class 2 severe obesity with body mass index (BMI) of 35 to 39.9 with serious comorbidity Kidney stone Migraine Afib Depression Anxiety GERD (gastroesophageal reflux disease) Pneumonia Surgical History History of wisdom tooth extraction Hx of cholecystectomy Hx of appendectomy Family History Other Diabetes HTN (hypertension) Substance use disorder Social History Housing: Apartment Alcohol intake: current Alcohol intake frequency: holidays/special occasions only Patient Tobacco Use Status: Never used Tobacco e-Cigarette/Vaping Use: Never Used Second Hand Smoke Exposure: No Substance Use Type: Marijuana Advance Directives Date on File: 05/01/20 service: No Current occupational status: disabled Cognitive needs: No Hearing needs: No Vision needs: Yes (glasses) Questionnaire PHQ-9 Over the last 2 weeks, how often have you been bothered by any of the following problems? 1. Little interest or pleasure in doing things: not at all 2. Feeling down, depressed, or hopeless: not at all 3. Trouble falling or staying asleep, or sleeping too much: several days (Currently on medication) 4. Feeling tired or having little energy: not at all 5. Poor appetite or overeating: not at all 6. Feeling bad about yourself - or that you are a failure or have let yourself or your family down: not at all 7. Trouble concentrating on things, such as reading the newspaper or watching television: not at all 8. Moving or speaking so slowly that other people could have noticed. Or the opposite - being so fidgety or restless that you have been moving around a lot more than usual: not at all 9. Thoughts that you would be better off or of hurting yourself in some way: not at all Total score: 1 Depression Screening Interpretation: Negative Depression Screening Done: Yes 68351 - PHQ-9 Billing: Yes Source: Developed by Drs. Diomedes Montanez, Jordana Nieves, George Duke and colleagues, with an educational francisco from [employer]. Thrive Questionnaire Date Thrive assessed: 09/02/24 I am a: Patient What is your living situation today?: I have a steady place to live Within the past 12 months, did the food you bought not last and you didn't have the money to get more?: Never true Within the past 12 months, did you worry whether your food would run out before you got money to buy more?: Never true Do you have trouble paying for medicines?: No Do you have trouble getting transportation to medical appointments?: No Do you have trouble paying your heating and electricity bill?: No Do you have trouble taking care of your child, family member or friend?: No Do you have trouble with day-to-day activities such as bathing, preparing meals, shopping, managing finances, etc.?: No Are you currently unemployed and looking for a job?: No Are you interested in more education?: No Please select the resources that you would like help with: None Currently or been in a relationship where the following occur: No concerns reported THRIVE Score: 0 AUDIT C Alcohol Use Questionnaire (AUDIT-C) 2. How many drinks containing alcohol do you have on a typical day when you are drinking?: 1 or 2 3. How often do you have six or more drinks on one occasion?: Never Total Score: 0 Score Reviewed/Action Taken: Yes JAROD-7 AMB Questionnaire JAROD-7 Date JAROD - 7 assessed: 09/02/24 Feeling nervous, anxious, or on edge: 1 = Several days (currently on medication) Not being able to stop or control worryin = Not at all Worrying too much about different things: 0 = Not at all Trouble relaxin = Not at all Being so restless that it is hard to sit still: 0 = Not at all Becoming easily annoyed or irritable: 0 = Not at all Feeling afraid as if something awful might happen: 0 = Not at all Total JAROD-7 score (0-4 normal; 5-9 mild; 10-14 moderate; 15-21 severe): 1 Source: Developed by Drs. Diomedes Montanez, Jordana Nieves, George Duke and colleagues, with an educational francisco from [employer]. JAROD-7 Assessment Billing JAROD-7 Assessment Tool: JAROD-7 Assessment 55000 Physical exam (Primary Care) Vital Signs: Last Vital Signs Temp 97.3 F 09/02/24 14:14 Pulse 116 H 09/02/24 14:14 BP 136/80 09/02/24 14:14 Pulse Ox 96 09/02/24 14:14 Oxygen Delivery Method Room Air 09/02/24 14:14 Care Plan Goal for BP management: 130/80 BMI result Body Mass Index 34.3 BMI Assessment/Plan discussion: High BMI High, discussed plan: lifestyle, weight reduction, dietary, physical activity and alcohol moderation Tobacco/Smoking Status: Tobacco use Status Tobacco use date assessed 09/02/24 09/02/24 14:21 Patient Tobacco Use Status Never used Tobacco 09/02/24 14:21 e-Cigarette/Vaping Use Never Used 09/02/24 14:21 PHQ-9: PHQ-9 Score PHQ-9: Total score 1 09/02/24 14:45 Depression Screening Interpretation: Negative Thrive Assessment: Date of Thrive Assessment Date Thrive assessed 09/02/24 09/02/24 14:21 Currently or been in a relationship where the following occur: No concerns reported Coding Level of Care Code Est Pt Level 4 (58623) Complex EM visit Add On G2211 Diagnoses Cervical strain S16.1XXA Spondylosis M47.9 Class 2 severe obesity with body mass index (BMI) of 35 to 39.9 with serious comorbidity E66.01 Afib I48.91 Anxiety F41.9 Depression F32.9 GERD (gastroesophageal reflux disease) K21.9 Additional Codes PHQ-9 - 98397 - PHQ-9 Billing: Yes ([id number]) JAROD-7 Assessment Billing - JAROD-7 Assessment Tool: JAROD-7 Assessment 86417 ([id number]) Assessment & Plan Assessment & Plan (1) Cervical strain: Code(s): S16.1XXA - Strain of muscle, fascia and tendon at neck level, initial encounter Category: Medical Plan: Will increase the patient's ibuprofen to 800 mg from 600 mg every 8 hours as needed, will add Flexeril 10 mg every 8 hours, will add a short course of tramadol. Will refer to physical therapy. Condition is stable will continue to monitor. (2) Spondylosis: Code(s): M47.9 - Spondylosis, unspecified Category: Medical Plan: Will increase the patient's ibuprofen to 800 mg from 600 mg every 8 hours as needed, will add Flexeril 10 mg every 8 hours, will add a short course of tramadol. Will refer to physical therapy. Condition is stable will continue to monitor. (3) Class 2 severe obesity with body mass index (BMI) of 35 to 39.9 with serious comorbidity: Code(s): E66.01 - Morbid (severe) obesity due to excess calories Category: Medical Plan: Patient to improve his diet and exercise. Condition is chronic and stable continue to monitor. (4) Afib: Comment: situational a fib only - usually vomiting Code(s): I48.91 - Unspecified atrial fibrillation Category: Medical Plan: Condition is chronic and stable patient currently on amlodipine 10 mg daily. Will continue to monitor. (5) Anxiety: Code(s): F41.9 - Anxiety disorder, unspecified Category: Medical Plan: Condition is chronic and stable continue to monitor. (6) Depression: Code(s): F32.9 - Major depressive disorder, single episode, unspecified Category: Medical Plan: Condition is chronic and stable continue to monitor. (7) GERD (gastroesophageal reflux disease): Code(s): K21.9 - Gastro-esophageal reflux disease without esophagitis Category: Medical Plan: Patient to continue omeprazole 20 mg daily. Condition is chronic and stable continue to monitor. Plan Plan - Prescribe tramadol for short-term pain relief with patient agreement. - Refill muscle relaxant for additional symptomatic relief. - Encourage continued use of 800 mg ibuprofen as needed. - Refer to physical therapy for comprehensive evaluation and treatment. - Emphasize the avoidance of alcohol and driving while on tramadol. Orders: Orders PT Evaluation and Treatment Today M47.9 - Spondylosis, unspecified, S16.1XXA - Strain of muscle, fascia and tendon at neck level, initial encounter Medications: New tramadol 50 mg PO Q8H PRN 30 tabs 0RF pain cyclobenzaprine 10 mg PO TID PRN 30 tabs 0RF muscle spasm Changed From ibuprofen 600 mg PO Q6H PRN 30 tabs 0RF fever or pain To ibuprofen 800 mg PO Q6H PRN 30 tabs 0RF fever or pain Patient Instructions: Patient Instructions - Begin tramadol as prescribed; avoid alcohol and driving. - Continue 800 mg ibuprofen for pain management. - Schedule and attend physical therapy for targeted interventions. - Utilize warm compresses and gentle massage from partner, as tolerated. - Ensure a follow-up with your primary care provider within the next three to six months. Scribe Plan - Not visible on output: History of Present Illness The patient is a 38-year-old male presenting with neck and shoulder pain management. The patient reports that his neck pain initially started around Friday after lifting heavy boxes. Although he did not feel any problems immediately, the pain began the following morning. The neck pain has progressively healed, leaving him with persistent shoulder pain. The patient visited the emergency room last . Despite undergoing a CT scan, he never saw a doctor physically that day but learned his results through a physician wet process assistant head miller in triage. The patient describes that the pain starts in the shoulder area, sometimes radiating down his leg and into his back, exacerbating his sleep. Current pain levels are consistently at 7-8/10. His treatment regimen has included ibuprofen and Tylenol; however, these have not effectively relieved his pain. A muscle relaxant was previously prescribed but provided minimal relief. The patient is following up on the ER plan and considering physical therapy recommendations. Social History - Currently at home on disability - Resides on the third floor with limited mobility - Engaged in parenting a 16-year-old child Review of Systems - Musculoskeletal: Reports severe pain with muscle spasm on the left shoulder area, radiating downward, exacerbated by movement and touch. - Neurological: Denies weakness. - General: Reports inadequate sleep due to pain. Physical Exam Appearance: Alert. Oriented X3. No acute distress. Head: Normal external exam. Normocephalic. Atraumatic. Eyes: Pupils are equal, round, and reactive to light. Extraocular movements intact. Conjunctiva and sclera normal. Eyelids normal. Ears: External auditory canal normal. Tympanic membranes normal. Throat: Pharynx normal. Uvula midline. Moist mucous membranes. Neck: Normal inspection. Neck supple. Full range of motion. No adenopathy. Thyroid Normal. No meningeal signs. No neck mass noted. Cardiovascular: Normal heart rate and rhythm. Heart sound normal. No murmurs noted. Pulses normal throughout. Respiratory: No respiratory distress. Painless inspiration. Breath sounds normal. No wheezes/rales/rhonchi noted. Chest nontender. No accessory muscle usage noted or decreased air movement noted. Abdomen: Soft and nontender. Bowel sounds normal in all 4 quadrants. No distention noted. No organomegaly noted. No visible injury noted. Back: No costovertebral angle tenderness. Full range of motion noted. Large muscle spasm noted on the left side, extending from the neck down to the lower back. No signs of infection. Skin: Skin warm and dry. Normal skin color. Normal skin turgor. No rashes/lesions/lacerations noted. Extremities: No lower extremity edema. Extremities exhibit normal range of motion. Extremities nontender. Neuro: Oriented X 3. No motor deficit. No sensory deficit. Reflexes normal. Results - CT scan performed in the ER (results discussed during the visit). Plan - Prescribe tramadol for short-term pain relief with patient agreement. - Refill muscle relaxant for additional symptomatic relief. - Encourage continued use of 800 mg ibuprofen as needed. - Refer to physical therapy for comprehensive evaluation and treatment. - Emphasize the avoidance of alcohol and driving while on tramadol. Patient was informed and verbally consented to the use of an ambient scribe for clinic note documentation during this visit. Discussion Notes I discussed with the patient the diagnosis of spondylosis and the significant muscle spasm found during the exam. I outlined the proposed management approach, explaining the potential benefits of using tramadol and the importance of physical therapy in addressing the muscle spasm and alleviating pain. I highlighted the safety measures required with tramadol usage, including the risk of drowsiness and the necessity to avoid driving. We discussed scheduling a follow-up if symptoms persist or worsen, and cooperation with the physical therapy referral was advised for symptom improvement. Exemplifying pain levels without adequate sleep was recognized as a critical issue; emphasis was placed on the need to address these for overall quality of life improvement. Patient Instructions - Begin tramadol as prescribed; avoid alcohol and driving. - Continue 800 mg ibuprofen for pain management. - Schedule and attend physical therapy for targeted interventions. - Utilize warm compresses and gentle massage from partner, as tolerated. - Ensure a follow-up with your primary care provider within the next three to six months.
[2024-09-02 14:14] VITALS: BP 136/80; PULSE 116; TEMP 36.3; O2SAT 96; BMI 34.3
--- OUTSIDE RECORDS SUMMARY | 2024-09-02 14:49 | XMS_ITS | Patient Health Record ---
Author Organization [facility] Address [address], [place] [id number] Care Team Providers Care Applications Engineer Manufacturing Name Role Phone Lupe Perry Unavailable [phone] Allergies Allergen (clinical drug ingredient) Drug/Non Drug [...] Notes Problem Obesity due to excess calories (868604470) Other obesity due to excess calories (E66.09) Active confirmed Problem Recurrent major depression (06738375) Major depressive disorder, recurrent, unspecified (F33.9) Active confirmed Problem Generalized anxiety disorder (23861029) Generalized anxiety disorder (F41.1) Active confirmed Problem Chronic intractable migraine without aura (742797306217375) Chronic migraine without aura, intractable, without status migrainosus (G43.719) Active confirmed Problem Insomnia (068083554) Insomnia, unspecified (G47.00) Active confirmed Problem DOBSON - Nonalcoholic steatohepatitis (918873154) Nonalcoholic steatohepatitis (DOBSON) (K75.81) Active confirmed Problem Sciatica (74507148) Lumbago with sciatica, unspecified side (M54.40) Active confirmed Plan Of Treatment No Information Insurance Providers Payer Name Payer Address Payer Phone Subscriber Number Group Number Insured Name Patient Relationship to Insured Coverage Start Date Coverage End Date [employer] ROSENDO [address] [place] [phone] [id number] Yamil Quarles Self - patient is the insured Medical (General) History Medical History History ICD Code anxiety insomnia migraines cluster headaches depression situational AFib s/p cardioversion Surgical History Surgery Date(Month/Year) appendectomy 2016 wisdom teeth 2001 Botox injection for migraine- 2nd set sc heduled for 09/201707/15/2017 Hospitalization History Reason Date(Month/Year) [facility] - extreme depression / anxiety January 2016 AFib - cardioversion 2015 AFib - cardioversion 2011 [facility] - syncope; w/u WNL 2015
--- OUTSIDE RECORDS SUMMARY | 2024-09-02 14:49 | XMS_ITS | Clinical Summary ---
Demographics Address [address] [place] [address] Home Phone Work Phone Mobile Phone Home Phone Preferred Language en Marital Status Single Amish Affiliation Unknown Race White Ethnic Group Not or Lati no Author Organization [facility] ity Address [address] [place] [address] Care Team Providers Care Reading Interventionist Name Role Phone Lupe Perry DO Primary Care Provider [phone] Social History Tobacco Use Types Packs/Day Years [...] patient's age to complete this topic Meningococcal B Vacine Aged Out No lo nger eligible based on patient's age to complete [...] age to complete this topic Care Teams Reading Interventionist Relationship Specialty Start Date End Date Lupe Perry DO [address] [place] [address] PCP - General Family Medicine 10/10/16
== END 2024-09-02 14:45 | disposition home or self-care (01) ==
PROVIDERS: PCP Internal Medicine; Visit Provider Physician Assistant Medical
DX: S16.1XXA Strain of muscle, fascia and tendon at neck level, initial encounter (principal); E66.01 Morbid (severe) obesity due to excess calories; I48.91 Unspecified atrial fibrillation; Z68.34 Body mass index [BMI] 34.0-34.9, adult; M47.9 Spondylosis, unspecified; F41.9 Anxiety disorder, unspecified; F32.9 Major depressive disorder, single episode, unspecified; K21.9 Gastro-esophageal reflux disease without esophagitis

== ENCOUNTER → 2024-09-02 13:47 | Outpatient (BNVA) | payer OTHER, SELFPAY | PROVIDERS: PCP Internal Medicine; Visit Provider Physician Assistant Medical | DX: S16.1XXA Strain of muscle, fascia and tendon at neck level, initial encounter (principal); M47.9 Spondylosis, unspecified; E66.01 Morbid (severe) obesity due to excess calories; I48.91 Unspecified atrial fibrillation; F41.9 Anxiety disorder, unspecified; F32.9 Major depressive disorder, single episode, unspecified; K21.9 Gastro-esophageal reflux disease without esophagitis | CPT/HCPCS: 96127; 99212 ==

== ENCOUNTER 2024-09-23 10:35 | Outpatient (AMB) | payer OTHER, SELFPAY ==
--- NOTE | 2024-09-23 10:44 | A.OFFPC_ITS ---
Vital Signs 09/23/24 10:45 Height 5 ft 9 in Weight 229 lb BMI 33.8 BP 110/66 Blood Pressure Location Lt brachial Position Sitting Pulse 89 Pulse Source Pulse Oximeter Temp 97.3 F Temp Source Temporal Artery Scan Pulse Oximetry (%) 97 Oxygen Delivery Method Room Air Intake Visit Reasons: 6 Month follow up Intake Note: Patient is here to follow up on PASTORA, Obesity, Afib. Urology Physician Required: No Ventilated Rib Fitter: Not Required per policy Accompanied by: Self / Same As Patient Allergies metoclopramide [From REGLAN] Allergy (Intermediate, Verified 09/23/24 11:00) AGITATION prochlorperazine [From COMPAZINE] Allergy (Intermediate, Verified 09/23/24 11:00) AGITATION diphenhydramine [From BENADRYL] Adverse Reaction (Intermediate, Verified 09/23/24 11:00) AGITATION Medication List - Last Reconciled 09/23/24 by Rivka Thompson PA-C amlodipine 10 mg PO DAILY bupropion HCl XL 1 tab PO QAM clonazepam 1 tab PO BEDTIME PRN cyclobenzaprine 10 mg PO TID PRN ibuprofen 800 mg PO Q6H PRN omeprazole 20 mg PO DAILY ondansetron 4 mg PO Q6-8H PRN rizatriptan mg PO topiramate 25 mg PO BID tramadol 50 mg PO DAILY PRN trazodone 150 mg PO BEDTIME Tobacco use date assessed: 09/23/24 Dental Screening Dental Screen Date: 09/02/24 [facility] Medical History Left shoulder pain Decreased range of motion of shoulder Spondylosis Anemia Primary hypertension Obstructive sleep apnea Class 2 severe obesity with body mass index (BMI) of 35 to 39.9 with serious comorbidity Kidney stone Migraine Afib Depression Anxiety GERD (gastroesophageal reflux disease) Pneumonia Surgical History History of wisdom tooth extraction Hx of cholecystectomy Hx of appendectomy Family History Other Diabetes HTN (hypertension) Substance use disorder Social History Housing: Apartment Alcohol intake: current Alcohol intake frequency: holidays/special occasions only Patient Tobacco Use Status: Never used Tobacco e-Cigarette/Vaping Use: Never Used Second Hand Smoke Exposure: No Substance Use Type: Marijuana Advance Directives Date on File: 05/01/20 service: No Current occupational status: disabled Cognitive needs: No Hearing needs: No Vision needs: Yes (glasses) Questionnaire Thrive Questionnaire Date Thrive assessed: 09/02/24 JAROD-7 AMB Questionnaire JAROD-7 Date JAROD - 7 assessed: 09/02/24 Source: Developed by Drs. Diomedes Montanez, Jordana Nieves, George Duke and colleagues, with an educational franc[place] from [employer]. Physical exam (Primary Care) Vital Signs: Last Vital Signs Temp 97.3 F 09/23/24 10:45 Pulse 89 09/23/24 10:45 BP 110/66 09/23/24 10:45 Pulse Ox 97 09/23/24 10:45 Oxygen Delivery Method Room Air 09/23/24 10:45 Care Plan Goal for BP management: <130/80 at goal BMI result Body Mass Index 33.8 BMI Assessment/Plan discussion: High BMI High, discussed plan: lifestyle, weight reduction, dietary, physical activity and alcohol moderation Tobacco/Smoking Status: Tobacco use Status Tobacco use date assessed 09/23/24 09/23/24 10:50 Patient Tobacco Use Status Never used Tobacco 09/23/24 10:50 e-Cigarette/Vaping Use Never Used 09/23/24 10:50 Thrive Assessment: Date of Thrive Assessment Date Thrive assessed 09/02/24 09/23/24 10:50 Coding Level of Care Code Est Pt Level 4 (53679) Complex EM visit Add On G2211 Diagnoses Decreased range of motion of shoulder M25.619 Spondylosis M47.9 Left shoulder pain M25.512 Restless leg syndrome G25.81 Primary hypertension I10 Obstructive sleep apnea G47.33 Class 2 severe obesity with body mass index (BMI) of 35 to 39.9 with serious comorbidity E66.01 Migraine G43.909 GERD (gastroesophageal reflux disease) K21.9 Depression F32.9 Anxiety F41.9 Afib I48.91 Assessment & Plan Assessment & Plan (1) Decreased range of motion of shoulder: Code(s): M25.619 - Stiffness of unspecified shoulder, not elsewhere classified Category: Medical Plan: Patient with atraumatic left shoulder pain with decreased range of motion. Will send for MRI. Patient has pain management appointment on 10/04/2024. Patient has PT and ortho referral in place pending at this time. Patient to continue ibuprofen 800 mg every 6 hours, Flexeril 10 mg 3 times a day, tramadol 50 mg daily /p.r.n. . Condition is chronic and stable continue to monitor. (2) Spondylosis: Code(s): M47.9 - Spondylosis, unspecified Category: Medical Plan: Patient has CT scan at the emergency department which revealed chronic changes and spondylosis of cervical spine. Patient has pain management appointment on 10/04/2024. Patient has PT and ortho referral in place pending at this time. Patient to continue ibuprofen 800 mg every 6 hours, Flexeril 10 mg 3 times a day, tramadol 50 mg daily /p.r.n. . Condition is chronic and stable continue to monitor. (3) Left shoulder pain: Code(s): M25.512 - Pain in left shoulder Category: Medical Plan: Patient with atraumatic left shoulder pain with decreased range of motion. Will send for MRI. Patient has pain management appointment on 10/04/2024. Patient has PT and ortho referral in place pending at this time. Patient to continue ibuprofen 800 mg every 6 hours, Flexeril 10 mg 3 times a day, tramadol 50 mg daily /p.r.n. . Condition is chronic and stable continue to monitor. (4) Restless leg syndrome: Code(s): G25.81 - Restless legs syndrome Category: Medical Plan: patient to continue rizatriptan. The condition is chronic and stable continue to monitor. (5) Primary hypertension: Code(s): I10 - Essential (primary) hypertension Category: Medical Plan: Patient to continue amlodipine 10 mg daily. blood pressure goal less than 130/80 at goal today. Will continue current regimen. Condition is chronic and stable continue to monitor. (6) Obstructive sleep apnea: Code(s): G47.33 - Obstructive sleep apnea (adult) (pediatric) Category: Medical Plan: Condition is chronic and stable continue to monitor. (7) Class 2 severe obesity with body mass index (BMI) of 35 to 39.9 with serious comorbidity: Code(s): E66.01 - Morbid (severe) obesity due to excess calories Category: Medical Plan: Patient to improve his diet and exercise regimen. Condition is chronic and stable continue to monitor. (8) Migraine: Code(s): G43.909 - Migraine, unspecified, not intractable, without status migrainosus Category: Medical Plan: Patient currently on topiramate 25 mg p.o. b.i.d.. Condition is chronic and stable continue to monitor. (9) GERD (gastroesophageal reflux disease): Code(s): K21.9 - Gastro-esophageal reflux disease without esophagitis Category: Medical Plan: patient to continue omeprazole 20 mg daily, Zofran 4 mg every 6-8 hours as needed. Condition is chronic and stable continue to monitor. (10) Depression: Code(s): F32.9 - Major depressive disorder, single episode, unspecified Category: Medical Plan: Patient to continue therapy/ psychiatry follow-up. Patient to continue bupropion XL 1 tablet every morning, clonazepam 1 tablet p.o. at bedtime p.r.n.. condition is chronic and stable continue to monitor. (11) Anxiety: Code(s): F41.9 - Anxiety disorder, unspecified Category: Medical Plan: Patient to continue therapy/ psychiatry follow-up. Patient to continue bupropion XL 1 tablet every morning, clonazepam 1 tablet p.o. at bedtime p.r.n.. condition is chronic and stable continue to monitor. (12) Afib: Comment: situational a fib only - usually vomiting Code(s): I48.91 - Unspecified atrial fibrillation Category: Medical Plan: Patient to continue amlodipine 10 mg daily. Condition is chronic and stable went any to monitor. Plan Plan Patient was informed and verbally consented to the use of an ambient scribe for clinic note documentation during this visit. 1. Gastroesophageal Reflux Disease Gerd Continue with omeprazole and monitor for GERD symptom control. 2. Situational Atrial Fibrillation Monitor symptomatology and adjust management based on occurrence and triggers. 3. Cervical Spine Arthritis Addressed with pain management strategies and therapy, with follow-up imaging as necessary. 4. Generalized Anxiety Disorder Continues under psychiatric care with clonazepam for anxiety control. 5. Major Depressive Disorder Managed with bupropion and trazodone under the guidance of psychiatric care. 6. Migraine Utilize Rizatriptan and Zofran as needed; follow neurologist's advice. 7. Left Shoulder Pain Plan includes obtaining an MRI, initiating contact with physical therapy, and managing with upcoming pain management. 8. Hypertension Managed with continued amlodipine 10 mg daily and regular blood pressure checks. Discussion Notes During this visit, I discussed with the patient the current management of his chronic left shoulder pain and potential cervical spine arthritis impacts. We explored the need for further diagnostic imaging via an MRI and ensured understanding of the upcoming pain management appointment. The importance of physical therapy was emphasized, along with the resolution of recent communication breakdowns. We reviewed the patient's sension of his hypertension regimen and psychiatric management with clonazepam for anxiety and trazodone and bupropion for depression, adjusting medications as necessary. Concerns regarding pharmacy refill discrepancies were addressed, and coordination with the pharmacy for appropriate refills was discussed. The patient was counseled to complete his pending laboratory tests and follow up with his neurologist for comprehensive migraine management. Orders: Orders MR shoulder LT wo con Today M25.512 - Pain in left shoulder, M25.619 - Stiffness of unspecified shoulder, not elsewhere classified Vitamin D 25-OH Total Today Z00.00 - Encounter for general adult medical examination without abnormal findings PSA,Total (Free>4and<10) Today Z00.00 - Encounter for general adult medical examination without abnormal findings Phosphorus Today Z00.00 - Encounter for general adult medical examination without abnormal findings PTH Intact Intraoperative Today Z00.00 - Encounter for general adult medical examination without abnormal findings Vitamin B12 and Folate Today Z00.00 - Encounter for general adult medical examination without abnormal findings Vitamin B1 Today Z00.00 - Encounter for general adult medical examination with out abnormal findings Hemoglobin A1c Today Z00.00 - Encounter for general adult medical examination without abnormal findings Referrals Orthopedics Referral M25.512 - Pain in left shoulder, M25.619 - Stiffness of unspecified shoulder, not elsewhere classified, M47.9 - Spondylosis, unspecified Medications: Refilled cyclobenzaprine 10 mg PO TID PRN 30 tabs 0RF muscle spasm Patient Instructions: Patient Instructions - Schedule and attend the MRI appointment for detailed evaluation of the left shoulder. - Attend the pain management consultation on the . - Follow up with physical therapy as soon as contact is re-established; address both neck and shoulder issues. - Continue all current medications as previously prescribed, including amlodipine, clonazepam, bupropion, and omeprazole. - Obtain the necessary blood work as soon as possible. - Follow up with your psychiatrist as planned. - Monitor any changes in symptoms, especially related to shoulder and neck pain, and report any significant changes or concerns. Scribe Plan - Not visible on output: History of Present Illness The patient is a 38-year-old male presenting with left shoulder pain exacerbating over the past few months, primarily initiated by lifting a heavy object. The patient experiences this pain more severely in the mornings, and it radiates into the neck, where there is noted cervical spine arthritis. This condition contributes to chronic pain, with the patient describing difficulty in performing normal shoulder movements without pain. Prior imaging studies, including a CAT scan of the cervical spine, indicate significant arthritis with bone spurring and disc narrowing, attributing to chronic neck and shoulder issues. Although a pain management plan is in place, the patient reports a lack of follow-up from physical therapy services. The patient presently uses tramadol for pain but has encountered prescription refill issues. In addition to musculoskeletal issues, the patient has a background of hypertension, generalized anxiety disorder, major depressive disorder, GERD, and migraines, all being actively managed with multiple medications. The coordination between healthcare services for follow-ups and treatments, especially concerning physical therapy and pain management, requires attention due to discrepancies in service delivery and communication. Social History - No social determinants of health discussed. Review of Systems - Musculoskeletal: Reports left shoulder pain, radiates to the neck. - Neurological: Reports migraines. - Psychiatric: Reports anxiety and depression. - Cardiovascular: Denies any current angina or palpitations. - Respiratory: Denies shortness of breath or wheezing. - Gastrointestinal: Reports GERD with managed symptoms. Physical Exam Appearance: Alert. Oriented X3. No acute distress. Head: Normal external exam. Normocephalic. Atraumatic. Eyes: Pupils are equal, round, and reactive to light. Extraocular movements intact. Conjunctiva and sclera normal. Eyelids normal. Ears: External auditory canal normal. Tympanic membranes normal. Throat: Pharynx normal. Uvula midline. Moist mucous membranes. Neck: Normal inspection. Neck supple. Full range of motion. No adenopathy. Thyroid Normal. No meningeal signs. No neck mass noted. Stiffness noted with pain radiating into the shoulder. Cardiovascular: Normal heart rate and rhythm. Heart sound normal. No murmurs noted. Pulses normal throughout. Respiratory: No respiratory distress. Painless inspiration. Breath sounds normal. No wheezes/rales/rhonchi noted. Chest nontender. No accessory muscle usage noted or decreased air movement noted. Abdomen: Soft and nontender. Bowel sounds normal in all 4 quadrants. No diste ntion noted. No organomegaly noted. No visible injury noted. Back: No costovertebral angle tenderness. Full range of motion noted. Skin: Skin warm and dry. Normal skin color. Normal skin turgor. No ra shes/lesions/lacerations noted. Extremities: No lower extremity edema. Left shoulder exhibits limited range of motion with pain. Otherwise all other extremities exhibit normal range of motion nontender. Neuro: Oriented X 3. No motor deficit. No sensory deficit. Reflexes normal. Normal steady gait.
[2024-09-23 10:45] VITALS: BP 110/66; PULSE 89; TEMP 36.3; O2SAT 97; BMI 33.8
--- OUTSIDE RECORDS SUMMARY | 2024-09-23 13:22 | XMS_ITS | Clinical Summary ---
Demographics Address [address] [facility] [place] [address] Home Phone Work Phone Mobile Phone Home Phone Preferred Language en Marital Status Single Mandaeism Affiliation Unknown Race White Ethnic Group Not or Lati no Author Organization [facility] ity Address [address] [place] [address] Care Team Providers Care Uniform Room Attendant Name Role Phone Lupe Perry DO Primary Care Provider [phone] Social History Tobacco Use Types Packs/Day Years [...] age to complete this topic Care Teams Uniform Room Attendant Relationship Specialty Start Date End Date Lupe Perry DO [address] [place] [address] PCP - General Family Medicine 10/10/16
--- OUTSIDE RECORDS SUMMARY | 2024-09-23 13:22 | XMS_ITS | Patient Health Record ---
Author Organization [facility] Address [address] [place], [place] [id number] Care Team Providers Care Technology Applications Engineer Name Role Phone Lupe Perry Unavailable [phone] Allergies Allergen (clinical drug ingredient) Drug/Non Drug [...] Notes Problem Obesity due to excess calories (652880846) Other obesity due to excess calories (E66.09) Active confirmed Problem Recurrent major depression (13025216) Major depressive disorder, recurrent, unspecified (F33.9) Active confirmed Problem Generalized anxiety disorder (79912667) Generalized anxiety disorder (F41.1) Active confirmed Problem Chronic intractable migraine without aura (195805954709192) Chronic migraine without aura, intractable, without status migrainosus (G43.719) Active confirmed Problem Insomnia (956454216) Insomnia, unspecified (G47.00) Active confirmed Problem DOBSON - Nonalcoholic steatohepatitis (468694242) Nonalcoholic steatohepatitis (DOBSON) (K75.81) Active confirmed Problem Sciatica (60536760) Lumbago with sciatica, unspecified side (M54.40) Active confirmed Plan Of Treatment No Information Insurance Providers Payer Name Payer Address Payer Phone Subscriber Number Group Number Insured Name Patient Relationship to Insured Coverage Start Date Coverage End Date GI[address] ROSENDO [address] [place] [phone] [id number] Yamil Quarles Self - patient is the insured Medical (General) History Medical History History ICD Code anxiety insomnia migraines cluster headaches depression situational AFib s/p cardioversion Surgical History Surgery Date(Month/Year) appendectomy 2016 wisdom teeth 2001 Botox injection for migraine- 2nd set sc heduled for 09/201707/15/2017 Hospitalization History Reason Date(Month/Year) [facility] - extreme depression / anxiety January 2016 AFib - cardioversion 2015 AFib - cardioversion 2011 [place] - [place]; w/u WNL 2015
== END 2024-09-23 11:09 | disposition home or self-care (01) ==
LOC: HO.HMCH 10:36
PROVIDERS: PCP Internal Medicine; Visit Provider Physician Assistant Medical
DX: I48.91 Unspecified atrial fibrillation (principal); M25.612 Stiffness of left shoulder, not elsewhere classified; E66.01 Morbid (severe) obesity due to excess calories; Z68.33 Body mass index [BMI] 33.0-33.9, adult; M47.9 Spondylosis, unspecified; M25.512 Pain in left shoulder; G25.81 Restless legs syndrome; I10 Essential (primary) hypertension; G47.33 Obstructive sleep apnea (adult) (pediatric); G43.909 Migraine, unspecified, not intractable, without status migrainosus; K21.9 Gastro-esophageal reflux disease without esophagitis; F32.9 Major depressive disorder, single episode, unspecified

== ENCOUNTER → 2024-09-23 10:35 | Outpatient (BNVA) | payer OTHER, SELFPAY | PROVIDERS: PCP Internal Medicine; Visit Provider Physician Assistant Medical | DX: M47.9 Spondylosis, unspecified (principal); M25.512 Pain in left shoulder; G25.81 Restless legs syndrome; I10 Essential (primary) hypertension; G47.33 Obstructive sleep apnea (adult) (pediatric); G43.909 Migraine, unspecified, not intractable, without status migrainosus; K21.9 Gastro-esophageal reflux disease without esophagitis; F32.9 Major depressive disorder, single episode, unspecified; F41.9 Anxiety disorder, unspecified; I48.91 Unspecified atrial fibrillation | CPT/HCPCS: 99212 ==

== ENCOUNTER → 2024-10-02 09:47 | Outpatient (BNV) | payer OTHER, SELFPAY | PROVIDERS: PCP Internal Medicine; Visit Provider Radiology Diagnostic Radiology | DX: M67.814 Other specified disorders of tendon, left shoulder (principal) | CPT/HCPCS: 73221 ==

== ENCOUNTER 2024-10-02 09:49 | Outpatient (REF) | payer OTHER, SELFPAY ==
--- NOTE | ~2024-10-02 | MR_ITS ---
EXAMINATION: MRI LEFT SHOULDER WITHOUT CONTRAST HISTORY: M25.512 - Pain in left shoulder COMPARISON: There are no prior studies for comparison. TECHNIQUE: Coronal T1, T2, and fat suppressed T2, axial fat suppressed proton density, and sagittal T2 weighted MR images of the left shoulder were obtained. FINDINGS: Bone Marrow: Bone marrow signal intensity is normal. Joint effusion: There is no glenohumeral joint effusion. Glenohumeral joint: The glenohumeral joint is maintained. AC joint: The AC joint is unremarkable. Supraspinatus muscle/tendon: There is mild increased signal intensity within the distal supraspinatus tendon consistent with tendinosis. This is most prominent involving the bursal surface. There is a small amount of fluid in the subdeltoid bursa suggestive of a bursal surface partial tear. There is no tendon retraction. Normal muscle bulk. Infraspinatus muscle/tendon: The infraspinatus tendon is intact. Normal muscle bulk. Teres minor muscle/tendon: The teres minor tendon is intact. Normal muscle bulk. Subscapularis muscle/tendon: The subscapularis tendon is intact. Normal muscle bulk. Biceps tendon: The biceps tendon is intact and normally located. Glenoid labrum: The glenoid labrum is grossly unremarkable in appearance, although evaluation is limited by lack of a joint effusion. Other findings: None MR/MR shoulder LT wo con IMPRESSION: Tendinosis of the distal supraspinatus tendon. Probable bursal surface partial tear of the distal supraspinatus tendon. Electronically signed by: Diomedes Aguilera MD 10/04/2024 11:44 AM EDT
--- OUTSIDE RECORDS SUMMARY | 2024-10-02 09:51 | XMS_ITS | Clinical Summary ---
Demographics Address [address] [place] [address] Home Phone Work Phone Mobile Phone Home Phone Preferred Language en Marital Status Single Scientologist Affiliation Unknown Race White Ethnic Group Not or Lati no Author Organization [facility] ity Address [address] [place] [address] Care Team Providers Care Cad Engineer Name Role Phone Lupe Perry DO Primary Care Provider [phone] Social History Tobacco Use Types Packs/Day Years [...] age to complete this topic Care Teams Cad Engineer Relationship Specialty Start Date End Date Lupe Perry DO [address] [place] [address] PCP - General Family Medicine 10/10/16
--- OUTSIDE RECORDS SUMMARY | 2024-10-02 09:51 | XMS_ITS | Patient Health Record ---
Author Organization [facility] Address [address] [place], [place] [address] Care Team Providers Care Potato Peeler Name Role Phone Lupe Perry Unavailable [phone] Allergies Allergen (clinical drug ingredient) Drug/Non Drug [...] Notes Problem Obesity due to excess calories (999751428) Other obesity due to excess calories (E66.09) Active confirmed Problem Recurrent major depression (98955944) Major depressive disorder, recurrent, unspecified (F33.9) Active confirmed Problem Generalized anxiety disorder (50540912) Generalized anxiety disorder (F41.1) Active confirmed Problem Chronic intractable migraine without aura (798886040112260) Chronic migraine without aura, intractable, without status migrainosus (G43.719) Active confirmed Problem Insomnia (271434290) Insomnia, unspecified (G47.00) Active confirmed Problem DOBSON - Nonalcoholic steatohepatitis (171802939) Nonalcoholic steatohepatitis (DOBSON) (K75.81) Active confirmed Problem Sciatica (44266062) Lumbago with sciatica, unspecified side (M54.40) Active confirmed Plan Of Treatment No Information Insurance Providers Payer Name Payer Address Payer Phone Subscriber Number Group Number Insured Name Patient Relationship to Insured Coverage Start Date Coverage End Date GIULIANO ROSENDO [address] [place] [phone] [id number] Yamil Quarles Self - patient is the insured Medical (General) History Medical History History ICD Code anxiety insomnia migraines cluster headaches depression situational AFib s/p cardioversion Surgical History Surgery Date(Month/Year) appendectomy 2016 wisdom teeth 2001 Botox injection for migraine- 2nd set sc heduled for 09/201707/15/2017 Hospitalization History Reason Date(Month/Year) [facility] - extreme depression / anxiety January 2016 AFib - cardioversion 2015 AFib - cardioversion 2011 [place] - syncope; w/u WNL 2015
== END 2024-10-02 09:50 | disposition home or self-care (01) ==
LOC: HO.MRI 09:49
PROVIDERS: PCP Internal Medicine; Visit Provider Physician Assistant Medical
DX: M25.512 Pain in left shoulder (principal); M25.612 Stiffness of left shoulder, not elsewhere classified
CPT/HCPCS: 73221

== ENCOUNTER 2024-10-04 13:06 | Outpatient (AMB) | payer OTHER, SELFPAY ==
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
[2024-10-04 13:22] VITALS: BP 163/97; PULSE 104; O2SAT 97; BMI 34.3
== END 2024-10-04 13:47 | disposition home or self-care (01) ==
LOC: HO.PMC 13:07
PROVIDERS: PCP Internal Medicine; Referring Provider Physician Assistant Medical; Visit Provider Nurse Practitioner Family
DX: M25.512 Pain in left shoulder (principal); M62.838 Other muscle spasm; M47.812 Spondylosis without myelopathy or radiculopathy, cervical region; M75.92 Shoulder lesion, unspecified, left shoulder
CPT/HCPCS: 99204; G2211

== ENCOUNTER → 2024-10-04 13:06 | Outpatient (BNVA) | payer OTHER, SELFPAY | PROVIDERS: PCP Internal Medicine; Referring Provider Physician Assistant Medical; Visit Provider Nurse Practitioner Family | DX: M25.512 Pain in left shoulder (principal); M47.812 Spondylosis without myelopathy or radiculopathy, cervical region; M62.838 Other muscle spasm; M75.92 Shoulder lesion, unspecified, left shoulder | CPT/HCPCS: 99202 ==

== ENCOUNTER 2024-10-30 09:54 | Emergency (ER) | payer OTHER, SELFPAY ==
[2024-10-30 09:58] VITALS: BP 161/109; PULSE 109; RESP 20; TEMP 36.6; O2SAT 99; BMI 33.3
--- NOTE | 2024-10-30 10:10 | ED.EXTPRO ---
HPI - Extremity Problem General Chief complaint: Extremity Problem Stated complaint: lost range of motion in shoulder,tingling down arm Time Seen by Provider: 10/30/24 10:09 Source: patient, RN notes reviewed and old records reviewed Mode of arrival: ambulatory History of Present Illness ED Provider: Bessie Barrow PA-C HPI Narrative: 39-year-old male with a past medical history of anemia, PASTORA, HTN, renal stones, migraines, AFib, depression, anxiety, GERD, presenting to the ED complaining of acute on chronic left shoulder pain worsening s/p carrying multiple heavy groceries yesterday. States lifted his 's 30 lb backpack over shoulder which he feels exacerbated symptoms. Admits to associated paresthesias to fingers. Denies direct trauma, injury, fall, CP/SOB, weakness. Patient had shoulder MRI on 10/02/2024 which showed tendinosis of the supraspinatus tendon as well as probable partial tear of the supraspinatus tendon, has follow up with Orthopedics in November Related Data Home Medications ?Medication ?Instructions ?Recorded ?Confirmed bupropion HCl 300 mg 24 hr tablet, 1 tab PO QAM 10/19/21 09/23/24 extended release clonazepam 1 mg tablet 1 tab PO BEDTIME PRN Anxiety 10/19/21 09/23/24 rizatriptan 10 mg disintegrating mg PO 10/21/23 09/23/24 tablet topiramate 25 mg tablet 25 mg PO BID 11/27/23 09/23/24 trazodone 100 mg tablet 150 mg PO BEDTIME 09/23/24 09/23/24 gabapentin 300 mg capsule 300 mg PO DAILY 10/04/24 Previous Rx's ?Medication ?Instructions ?Recorded omeprazole 20 mg capsule,delayed 20 mg PO DAILY #90 caps 07/16/24 release ibuprofen 800 mg tablet 800 mg PO Q6H PRN fever or pain 09/02/24 #30 tabs ondansetron 4 mg disintegrating 4 mg PO Q6-8H PRN nausea and 09/17/24 tablet vomiting #15 tabs amlodipine 10 mg tablet 10 mg PO DAILY #30 tabs 09/29/24 cyclobenzaprine 10 mg tablet 10 mg PO TID PRN muscle spasm #90 10/04/24 tabs acetaminophen 500 mg tablet 500 mg PO Q6H PRN fever or pain 10/30/24 (Tylenol Extra Strength) #14 tabs cyclobenzaprine 5 mg tablet 5 mg PO Q8H PRN pain (scale score 10/30/24 7-10) 5 days #14 tabs lidocaine 5 % topical patch 1 patch topical DAILY PRN pain #30 10/30/24 (Lidoderm) ea morphine 15 mg immediate release 15 mg PO Q6H PRN pain (scale score 10/30/24 tablet 7-10) 3 days #9 tabs naproxen 500 mg tablet 500 mg PO BID PRN pain 10 days #20 10/30/24 tabs Allergies Allergy/AdvReac Type Severity Reaction Status Date / Time metoclopramide [From REGLAN] Allergy Intermediate AGITATION Verified 10/30/24 10:02 prochlorperazine Allergy Intermediate AGITATION Verified 10/30/24 10:02 [From COMPAZINE] diphenhydramine AdvReac Intermediate AGITATION Verified 10/30/24 10:02 [From BENADRYL] Review of Systems Review of Systems: Yes all other systems are reviewed and are negative Constitutional: Constitutional: Reports as per [facility] Past Medical History Attestation statement: The following information was validated with the patient. Source: old records reviewed Medical History Left shoulder pain Decreased range of motion of shoulder Spondylosis Anemia Primary hypertension Obstructive sleep apnea Class 2 severe obesity with body mass index (BMI) of 35 to 39.9 with serious comorbidity Kidney stone Migraine Afib Depression Anxiety GERD (gastroesophageal reflux disease) Pneumonia Surgical History History of wisdom tooth extraction Hx of cholecystectomy Hx of appendectomy Family History Family History Other Diabetes HTN (hypertension) Substance use disorder Social History Social History Housing: Apartment Alcohol intake: current Alcohol intake frequency: holidays/special occasions only Patient Tobacco Use Status: Never used Tobacco Smoked in Last 30 Days: No e-Cigarette/Vaping Use: Never Used Second Hand Smoke Exposure: No Use of substances other than those prescribed or required for medical reasons: No Substance Use Type: Marijuana Advance Directives: No Advance Directives Information Provided: Yes Advance Directives Date on File: 05/01/20 service: No Current occupational status: disabled Cognitive needs: No Hearing needs: No Vision needs: Yes (glasses) Physical Exam Vital Signs: Vital Signs: Last Vital Signs Temp 98.0 F 10/30/24 11:43 Pulse 108 H 10/30/24 11:43 Resp 18 10/30/24 11:43 BP 135/88 10/30/24 11:43 Pulse Ox 98 10/30/24 11:43 O2 Del Method Room Air 10/30/24 11:43 BMI result Body Mass Index 33.3 Const: General: cooperative, healthy appearing and no acute distress Orientation/consciousness: patient oriented x3 Limitations: no limitations HEENT: Head: Yes normal to inspection and Yes atraumatic Ears: hearing grossly normal bilaterally General nose exam: Normal external nose present Face and sinus: Yes normal facial exam Eyes: General: appearance normal, both eyes and all related structures EOM: EOMs intact bilaterally Neck: Neck: Yes normal visual inspection and Yes no meningeal signs Resp: Effort & Inspection: normal respiratory effort and no respiratory distress Cardio: Rate: regular rate : General: Yes no CVA tenderness Back/Spine/Pelvis: Back: no CVA tenderness Skin: Rashes: no rashes Wounds: no wounds Neuro: General: patient oriented x3, tone normal and no meningeal signs Cranial nerves: Yes CN's II-XII intact bilaterally Gait exam (Neuro): Normal gait present Extrem: Other: Left shoulder without appreciable deformity. + reproducible tenderness to trapezius muscle and AC joint. Limited ABDuction and internal rotation secondary to pain. Neurovascularly intact distally. No erythema/warmth, rash or crepitus. General: Yes normal to inspection Course Course Course Narrative: Results discussed with patient including worrisome signs and symptoms and strict return precautions, and when to return to the emergency department. They verbalized understanding and feel safe for discharge at this time. Medications Administered Discontinued Medications Generic Name Dose Route Start Last Admin Trade Name Freq PRN Reason Stop Dose Admin Cyclobenzaprine HCl 10 mg 10/30/24 10:18 10/30/24 10:31 Cyclobenzaprine Hcl 10 Mg Tablet PO 10/30/24 10:19 10 mg ONCE ONE Administration Ketorolac Tromethamine 30 mg 10/30/24 10:18 10/30/24 10:34 Ketorolac Tromethamine 30 Mg/Ml Vial IM 10/30/24 10:19 30 mg ONCE ONE Administration Lidocaine 1 patch 10/30/24 10:18 10/30/24 10:32 Lidocaine 4 % Patch Adh..Patch TRANSDERMA 10/30/24 10:19 1 patch ONCE ONE Administration Protocol Morphine Sulfate 15 mg 10/30/24 11:17 10/30/24 11:38 Morphine Sulfate Immed Release 15 Mg Tablet PO 10/30/24 11:18 15 mg ONCE ONE Administration Medical Decision Making Medical Decision Making MDM Narrative: 39-year-old male with a past medical history of anemia, PASTORA, HTN, renal stones, migraines, AFib, depression, anxiety, GERD, presenting to the ED complaining of acute on chronic left shoulder pain worsening s/p carrying multiple heavy groceries yesterday. On exam hypertensive, tachycardic, likely from pain. Physical exam as noted above. Concern for MSK pain/strain vs tendinopathy vs known partial tear vs worsening tear. Low suspicion for fracture. No evidence of septic joint/arthritis. No additional imaging needed at this time Plan: Pain management Please refer to course for remaining clinical decision making, interpretation of labs/imaging results, and discussions with consultants and/or family members. Differential Diagnosis Differential Diagnoses: The differential diagnosis associated with the presentation includes As above Radiology Impression Discussion of test interpretation with radiology: I have reviewed the radiologist's reading. External Record Review External record reviewed: Inpatient record, Office record, Outpatient record, Prior outpatient labs, Prior outpatient radiology, Primary care record and Outside ED record Tests considered The following testing was considered but not selected: As above Prescription Management I considered prescription management with: Pain Medication Chronic Conditions Patient?s care impacted by: Other Social Determinants Patient?s care significantly limited by Social Determinants of Health including: Other Social Determinant of Health Discharge Plan Discharge Clinical Impression: Chronic shoulder pain Patient Disposition: Home, Self-Care Instructions: Chronic Pain (ED), Arthralgia (ED) Additional Instructions: Your pain is likely musculoskeletal You need to follow-up with orthopedics in your primary care doctor. Call to make an appointment Flexeril is a muscle relaxer, take at night as it makes you drowsy, do not drive, drink alcohol, or operate machinery while taking it Naproxen as an anti-inflammatory / pain medication, take with food Lidoderm patches are numbing patches, apply to painful area In addition take Tylenol at home Morphine as an opiate pain medication, take only when pain is severe for the next 3 days If symptoms persist or worsen, pain becomes unbearable, you developed urinary retention or incontinence, or weakness return to the ED Prescriptions: New acetaminophen [Tylenol Extra Strength] 500 mg tablet 500 mg PO Q6H PRN (Reason: fever or pain) Qty: 14 0RF lidocaine [Lidoderm] 5 % adhesive patch,medicated 1 patch topical DAILY MDD remove after 12 hours PRN (Reason: pain) Qty: 30 0RF Rx Instructions: leave on most painful area for up to 12 hrs morphine 15 mg tablet 15 mg PO Q6H PRN (Reason: pain (scale score 7-10)) 3 Days Qty: 9 0RF Rx Instructions: Partial Fill upon patient request. naproxen 500 mg tablet 500 mg PO BID PRN (Reason: pain) 10 Days Qty: 20 0RF cyclobenzaprine 5 mg tablet 5 mg PO Q8H PRN (Reason: pain (scale score 7-10)) 5 Days Qty: 14 0RF No Action omeprazole 20 mg capsule,delayed release(DR/EC) 20 mg PO DAILY Qty: 90 1RF ondansetron 4 mg tablet,disintegrating 4 mg PO Q6-8H PRN (Reason: nausea and vomiting) Qty: 15 0RF amlodipine 10 mg tablet 10 mg PO DAILY Qty: 30 1RF clonazepam 1 mg tablet 1 tab PO BEDTIME PRN (Reason: Anxiety) bupropion HCl 300 mg tablet extended release 24 hr 1 tab PO QAM trazodone 100 mg tablet 150 mg PO BEDTIME ibuprofen 800 mg tablet 800 mg PO Q6H PRN (Reason: fever or pain) Qty: 30 0RF rizatriptan 10 mg tablet,disintegrating PO topiramate 25 mg tablet 25 mg PO BID gabapentin 300 mg capsule 300 mg PO DAILY cyclobenzaprine 10 mg tablet 10 mg PO TID PRN (Reason: muscle spasm) Qty: 90 0RF Referrals: [facility] [place] [facility] [Provider Group] - 1 week Marcel Cruz MD [Primary Care Provider] - 3 days Interventions: ED Discharge Assessment Last Done: 10/30/24 11:43 Discharge Date/Time: 10/30/24 11:44 Print Language: German
--- OUTSIDE RECORDS SUMMARY | 2024-10-30 10:14 | XMS_ITS | Clinical Summary ---
Demographics Address [address] [place] [address] Home Phone Work Phone Mobile Phone Home Phone Preferred Language en Marital Status Single Church Affiliation Unknown Race White Ethnic Group Not or Lati no Author Organization [facility] ity Address [address] [place] [address] Care Team Providers Care Claims Analyst Name Role Phone Lupe Perry DO Primary Care Provider Social History Tobacco Use Types Packs/Day Years [...] Vaccine (2023-2 5 season) 2024 Influenza Vaccine (Season Ended) 2025 HIB Vaccines Aged Out No longer eligi [...] age to complete this topic Meningococcal B Vaccine Aged Out No l onger eligible based on patient's age to complete [...] age to complete this topic Care Teams Claims Analyst Relationship Specialty Start Date End Date Lupe Perry DO [address] [place] [address] [address] [place] [address] PCP - General Family Medicine 10/10/16
[2024-10-30 10:29] VITALS: BP 126/91; PULSE 110; RESP 20; TEMP 36.7; O2SAT 98
[2024-10-30] MEDS: Cyclobenzaprine HCl 10 MG TABLET PO (10:31)
[2024-10-30] MEDS: Lidocaine 4 % Patch ADH..PATCH 1 PATCH TRANSDERMA (10:32)
[2024-10-30] MEDS: Ketorolac Tromethamine 30 MG/ML VIAL IM (10:34)
[2024-10-30] MEDS: Morphine Sulfate Immed Release 15 MG TABLET PO (11:38)
[2024-10-30 11:39] VITALS: BP 135/88; PULSE 108; RESP 18; TEMP 36.7; O2SAT 98
[2024-10-30 11:43] VITALS: BP 135/88; PULSE 108; RESP 18; TEMP 36.7; O2SAT 98
== END 2024-10-30 11:44 | disposition home or self-care (01) ==
PROVIDERS: Emergency Provider Emergency Medicine; PCP Internal Medicine
DX: M25.512 Pain in left shoulder (principal)
CPT/HCPCS: 96372; 99284; J1885

== ENCOUNTER 2024-11-19 10:16 | Outpatient (REF) | payer OTHER, SELFPAY ==
--- NOTE | ~2024-11-19 | XR_ITS ---
CLINICAL HISTORY: M25.512 - Pain in left shoulder 3 view left shoulder Comparison: MR - MR SHOULDER LT WO CON - 10/02/24 10:26 EDT Findings: No fractures or dislocations. No significant arthritic change. No erosions. No radiopaque foreign body. Visualized lung demonstrates no consolidation or pneumothorax. IMPRESSION: 1. No acute findings This document has been electronically signed by: Joan Armijo MD on 11/22/2024 08:42:56
--- OUTSIDE RECORDS SUMMARY | 2024-11-23 11:21 | XMS_ITS | Clinical Summary ---
Demographics Address [address] [facility] [address] Home Phone Work Phone Mobile Phone Home Phone Preferred Language en Marital Status Single Scientologist Affiliation Unknown Race White Ethnic Group Not or Lati no Author Organization [facility] ity Address [address] [place] [address] Care Team Providers Care Nib Adjuster Name Role Phone Lupe Perry DO Primary Care Provider [phone] Social History Tobacco Use Types Packs/Day Years [...] age to complete this topic Care Teams Nib Adjuster Relationship Specialty Start Date End Date Lupe Perry DO [address] [place] [address] [address] [place] [address] PCP - General Family Medicine 10/10/16
--- OUTSIDE RECORDS SUMMARY | 2024-11-23 11:21 | XMS_ITS | Patient Health Record ---
Author Organization [facility] Address [address] [place], [place] [address] Care Team Providers Care Zumba Instructor Name Role Phone Lupe Perry Unavailable [phone] Allergies Allergen (clinical drug ingredient) Drug/Non Drug [...] Notes Problem Obesity due to excess calories (697396606) Other obesity due to excess calories (E66.09) Active confirmed Problem Recurrent major depression (90134465) Major depressive disorder, recurrent, unspecified (F33.9) Active confirmed Problem Generalized anxiety disorder (79753855) Generalized anxiety disorder (F41.1) Active confirmed Problem Chronic intractable migraine without aura (763826948149576) Chronic migraine without aura, intractable, without status migrainosus (G43.719) Active confirmed Problem Insomnia (267956605) Insomnia, unspecified (G47.00) Active confirmed Problem DOBSON - Nonalcoholic steatohepatitis (153529894) Nonalcoholic steatohepatitis (DOBSON) (K75.81) Active confirmed Problem Sciatica (69132133) Lumbago with sciatica, unspecified side (M54.40) Active confirmed Plan Of Treatment No Information Insurance Providers Payer Name Payer Address Payer Phone Subscriber Number Group Number Insured Name Patient Relationship to Insured Coverage Start Date Coverage End Date GIULIANO ROSENDO [address] [place] [phone] [id number] Yamil Quarles Self - patient is the insured Medical (General) History Medical History History ICD Code anxiety insomnia migraines cluster headaches depression situational AFib s/p cardioversion Surgical History Surgery Date(Month/Year) appendectomy 2016 wisdom teeth 2001 Botox injection for migraine- 2nd set sc heduled for 09/201707/15/2017 Hospitalization History Reason Date(Month/Year) [facility] - extreme depression / anxiety January 2016 AFib - cardioversion 2015 [place]; w/u W[place] 2015
== END 2024-11-19 10:17 | disposition home or self-care (01) ==
LOC: HO.HOSX 10:16
PROVIDERS: Visit Provider Physician Assistant
DX: M75.92 Shoulder lesion, unspecified, left shoulder (principal); M25.512 Pain in left shoulder
CPT/HCPCS: 20610; 73030; 99212; J1010; J2003

== ENCOUNTER 2024-11-19 10:33 | Outpatient (AMB) | payer OTHER, SELFPAY ==
--- NOTE | 2024-11-19 10:47 | A.OFFVIS_ITS ---
Vital Signs 11/19/24 11:01 Height 5 ft 9 in Weight 225 lb BMI 33.2 Intake Visit Reasons: Newprob-Pain in left shoulder Intake Note: Yamil is a 39 year old left hand dominant male who presents today with his significant other complaining of left shoulder plain on the posterior aspect of the shoulder radiating to the left side of the neck and down to the anterior aspect of his shoulder. Patient describes pain as sharp, 8 on the 0-10 pain scale. Patient shares pain initially began 2 months ago, no known trauma, but worsened about 3 weeks ago after having to carry many heavy objects up a third floor. Patient says he is unable to lift his arm or tolerate a lot of movements while driving. Patient expresses how much it has affected ADL's, his significant other helps him shower. Patient has tried naproxen, ibuprofen, lidcoaine patchesand Tylenol with little to no relif. Patient denies numbness, tingling, or previous fractures or surgical interventions to his left shoulder. Allergies metoclopramide [From REGLAN] Allergy (Intermediate, Verified 11/19/24 10:59) AGITATION prochlorperazine [From COMPAZINE] Allergy (Intermediate, Verified 11/19/24 10:59) AGITATION diphenhydramine [From BENADRYL] Adverse Reaction (Intermediate, Verified 11/19/24 10:59) AGITATION Medication List - Last Reconciled 11/19/24 by Trey Cardenas PA-C acetaminophen (Tylenol Extra Strength) 500 mg PO Q6H PRN amlodipine 10 mg PO DAILY bupropion HCl XL 1 tab PO QAM clonazepam 1 tab PO BEDTIME PRN gabapentin 300 mg PO BID ibuprofen 800 mg PO Q6H PRN lidocaine 5% (Lidoderm) 1 patch topical DAILY PRN MDD remove after 12 hours naproxen 500 mg PO BID PRN 10 days omeprazole 20 mg PO DAILY ondansetron 4 mg PO Q6-8H PRN rizatriptan mg PO topiramate 25 mg PO BID trazodone 150 mg PO BEDTIME HPI HPI Newprob-Pain in left shoulder: Details: 39-year-old gentleman presents to the office today for left shoulder pain which has been present for approximately 2 months. He denies injury. He complains of pain with overhead reaching and sleeping at night. He claims this is affecting his ability to perform daily activities. He denies any treatment to date. [facility] Medical History Left shoulder pain Decreased range of motion of shoulder Spondylosis Anemia Primary hypertension Obstructive sleep apnea Class 2 severe obesity with body mass index (BMI) of 35 to 39.9 with serious comorbidity Kidney stone Migraine Afib Depression Anxiety GERD (gastroesophageal reflux disease) Pneumonia Surgical History History of wisdom tooth extraction Hx of cholecystectomy Hx of appendectomy Family History Other Diabetes HTN (hypertension) Substance use disorder Social History Housing: Apartment Alcohol intake: current Alcohol intake frequency: holidays/special occasions only Patient Tobacco Use Status: Never used Tobacco e-Cigarette/Vaping Use: Never Used Second Hand Smoke Exposure: No Substance Use Type: Marijuana Advance Directives Date on File: 05/01/20 service: No Current occupational status: disabled Cognitive needs: No Hearing needs: No Vision needs: Yes (glasses) Review of Systems Const All systems reviewed & are unremarkable except as noted in HPI and below Physical Exam Vital Signs: BMI result Body Mass Index 33.2 Const General: cooperative and no acute distress Orientation/consciousness: patient oriented x3 Resp Effort & Inspection: normal respiratory effort and able to speak in complete sentences Cardio Peripheral pulses: Peripheral pulses 2+ throughout Neuro General: patient oriented x3 Extrem Other: Left shoulder normal to inspection. He has full range of motion in all planes. He has 5/5 rotator cuff strength. Positive Bluejacket's. Tenderness over the prox imal biceps tendon. Tenderness over the AC joint. Neurovascularly intact. Office Procedures AMB Joint Injection/Aspiration Joint Injection/Aspiration Primary Site: left shoulder Prep: site was prepped using aseptic technique, ethochloride spray was applied and injection warnings given Injected: 80 mg of, DepoMedrol, with 8 mL of, 1% plain lidocaine and in the subcromial space Approach Used: posterolateral Procedure: The patient tolerated the procedure well and there was some relief with the local anesthesia Coding 41585 - Glenohumeral/Tronchanteric Bursa/Intraarticular Procedure code (CPT) selection complete Results Reviewed Results Reviewed: X-rays of the left shoulder obtained in the office today are negative for any acute or chronic abnormalities. MRI Lt shldr IMPRESSION: Tendinosis of the distal supraspinatus tendon. Probable bursal surface partial tear of the distal supraspinatus tendon. Assessment & Plan Assessment & Plan (1) Left supraspinatus tendonitis: Code(s): M75.92 - Shoulder lesion, unspecified, left shoulder Category: Medical Plan: We discussed options today which include physical therapy and steroid injection which she did consent to today. Procedure was tolerated well. He will begin therapy to work on range of motion rotator cuff periscapular stabilization. He will continue to increase activities as tolerated if symptoms persist or worsen over the 6-8 weeks she will contact our office otherwise follow up as needed. Orders: Orders XR shoulder LT min 2V Today M25.512 - Pain in left shoulder Coding Level of Care Code Est Pt Level 3 (22833) Complex EM visit Add On G2211 Diagnoses Left supraspinatus tendonitis M75.92 CPT Codes Coding - Joint 7: 32029 - Glenohumeral/Tronchanteric Bursa/Intraarticular ([id number])
[2024-11-19 11:01] VITALS: BMI 33.2
--- OUTSIDE RECORDS SUMMARY | 2024-11-19 11:01 | XMS_ITS | Clinical Summary ---
Demographics Address [address] [facility] [place] [address] Home Phone Work Phone Mobile Phone Home Phone Preferred Language en Marital Status Single Judaism Affiliation Unknown Race White Ethnic Group Not or Lati no Author Organization [facility] ity Address [address] [place] [address] Care Team Providers Care High School Science Tutor Name Role Phone Lupe Perry DO Primary Care Provider [phone] Social History Tobacco Use Types Packs/Day Years [...] age to complete this topic Care Teams High School Science Tutor Relationship Specialty Start Date End Date Lupe Perry DO [address] [place] [address] [address] [place] [address] PCP - General Family Medicine 10/10/16
--- OUTSIDE RECORDS SUMMARY | 2024-11-19 11:01 | XMS_ITS | Patient Health Record ---
Author Organization [facility] Address [address] [place], [place] [address] Care Team Providers Care Web Manager Name Role Phone Lupe Perry Unavailable [phone] Allergies Allergen (clinical drug ingredient) Drug/Non Drug [...] Notes Problem Obesity due to excess calories (901901601) Other obesity due to excess calories (E66.09) Active confirmed Problem Recurrent major depression (24238745) Major depressive disorder, recurrent, unspecified (F33.9) Active confirmed Problem Generalized anxiety disorder (78702880) Generalized anxiety disorder (F41.1) Active confirmed Problem Chronic intractable migraine without aura (066810958685121) Chronic migraine without aura, intractable, without status migrainosus (G43.719) Active confirmed Problem Insomnia (673704425) Insomnia, unspecified (G47.00) Active confirmed Problem DOBSON - Nonalcoholic steatohepatitis (444380360) Nonalcoholic steatohepatitis (DOBSON) (K75.81) Active confirmed Problem Sciatica (62885821) Lumbago with sciatica, unspecified side (M54.40) Active confirmed Plan Of Treatment No Information Insurance Providers Payer Name Payer Address Payer Phone Subscriber Number Group Number Insured Name Patient Relationship to Insured Coverage Start Date Coverage End Date GIULIANO ROSENDO [address] [place] [address] [id number] Yamil Quarles Self - patient is the insured Medical (General) History Medical History History ICD Code anxiety insomnia migraines cluster headaches depression situational AFib s/p cardioversion Surgical History Surgery Date(Month/Year) appendectomy 2016 wisdom teeth 2001 Botox injection for migraine- 2nd set sc heduled for 09/201707/15/2017 Hospitalization History Reason Date(Month/Year) [facility] - extreme depression / anxiety January 2016 AFib - cardioversion 2015 [place] 2015
== END 2024-11-19 11:34 | disposition home or self-care (01) ==
LOC: HO.HOS 10:34
PROVIDERS: PCP Internal Medicine; Visit Provider Physician Assistant
DX: M75.92 Shoulder lesion, unspecified, left shoulder (principal)
CPT/HCPCS: 20610; 99213

== ENCOUNTER → 2024-11-19 10:35 | Outpatient (BNV) | payer OTHER, SELFPAY | PROVIDERS: Visit Provider Radiology Diagnostic Radiology | DX: M25.512 Pain in left shoulder (principal) | CPT/HCPCS: 73030 ==

== ENCOUNTER 2024-12-02 13:34 | Outpatient (AMB) | payer OTHER, SELFPAY ==
--- NOTE | 2024-12-02 13:39 | A.OFFVIS_ITS ---
Intake Visit Reasons: Kidney stones Intake Note: Patient is present for [facility] Medication:NONE Antibiotic Allergy:NONE Blood Thinner:NONE Bisque Cleaner Required: No Allergies metoclopramide [From REGLAN] Allergy (Intermediate, Verified 12/02/24 13:39) AGITATION prochlorperazine [From COMPAZINE] Allergy (Intermediate, Verified 12/02/24 13:39) AGITATION diphenhydramine [From BENADRYL] Adverse Reaction (Intermediate, Verified 12/02/24 13:39) AGITATION HPI Comments Details: Yamil is a pleasant male. He is seen for the following urologic conditions - nephrolithiasis - hypospadias - low libido Primary issue is nephrolithiasis Check baseline testosterone labs Does have sleep apnea and is not consistent with mask wearing Hypospadias Repair at 1 years old Performed locally by Dr. Branch Now with stream divergence Recommend examination under anesthesia with possible meatotomy Nephrolithiasis Yamil presents for - initial evaluation for nephrolithiasis, Initial presentation through emergency department Presenting symptoms included flank pain with associated nausea Imaging - 10/05 CT Right side: There is an obstructing 3 mm calculus within the distal right ureter resulting in right-sided hydroureter and periureteric inflammation. There is fullness of the right renal pelvis without sheila right-sided hydronephrosis. Left side: The left kidney is normal in size, shape, and attenuation. No hydronephrosis, hydroureter, or calculi seen. No perinephric stranding. At this stage symptoms resolved Does report increased cola intake [facility] Medical History (Updated 12/02/24 @ 14:19 by Juanjose Hackett MD) Left shoulder pain Decreased range of motion of shoulder Spondylosis Anemia Primary hypertension Obstructive sleep apnea Class 2 severe obesity with body mass index (BMI) of 35 to 39.9 with serious comorbidity Kidney stone Migraine Afib Depression Anxiety GERD (gastroesophageal reflux disease) Pneumonia Surgical History History of wisdom tooth extraction Hx of cholecystectomy Hx of appendectomy Family History Other Diabetes HTN (hypertension) Substance use disorder Social History Housing: Apartment Alcohol intake: current Alcohol intake frequency: holidays/special occasions only Patient Tobacco Use Status: Never used Tobacco e-Cigarette/Vaping Use: Never Used Second Hand Smoke Exposure: No Substance Use Type: Marijuana Advance Directives Date on File: 05/01/20 service: No Current occupational status: disabled Cognitive needs: No Hearing needs: No Vision needs: Yes (glasses) Review of Systems Const Denies chills and Denies fever(s) Card Reports no additional complaints and Denies syncope Resp Denies cough GI Denies abdominal pain and Denies heartburn Reports as per HPI and Denies change in libido Neuro Denies syncope Psych Denies change in libido Endo Denies change in libido Physical Exam Const General: cooperative, healthy appearing, comfortable and no acute distress Orientation/consciousness: patient oriented x3 HEENT Face and sinus: Yes normal facial exam Mouth: moist mucous membranes Neck Neck: Yes normal visual inspection, Yes full ROM and Yes trachea midline Chest Chest palpation & inspection: normal inspection of the chest Resp Effort & Inspection: normal respiratory effort, able to speak in complete sentences and no respiratory distress GI Inspection: Yes normal to inspection Back/Spine/Pelvis Cervical Spine: normal cervical lordosis Thoracic/Lumbar Spine: thoracic and lumbar spine normal to inspection Skin General skin exam: no rashes or lesions noted Neuro General: patient oriented x3, gait normal, tone normal and moves all extremities Extrem General: Yes normal to inspection and Yes capillary refill normal Assessment & Plan Assessment & Plan (1) Kidney stone: Code(s): N20.0 - Calculus of kidney Category: Medical (2) Hypospadias in male: Code(s): Q54.9 - Hypospadias, unspecified Category: Medical (3) Low libido: Code(s): R68.82 - Decreased libido Category: Medical Plan Check labs Examination under anesthesia Risks, benefits and alternatives to therapy were discussed. These include but are not limited to infection, bleeding, damage to local organs and tissues, need for further interventions. Anesthetic risks regarding cardiac arrhythmia, blood clots, and potential mortality were discussed. The patient understands the typical recovery time and the outpatient nature of the procedure. After consideration of these risks the patient gives full informed consent and they wish to move ahead with the procedure. Hypospadias with possible meatal stenosis Orders: Orders Testosterone, Free/Total Today Q54.9 - Hypospadias, unspecified Lutenizing Hormone Today Q54.9 - Hypospadias, unspecified Patient Instructions: This note is constructed using voice recognition software. While every effort has been made to ensure accuracy manager ems errors may have been included. Imaging studies, laboratory and physical exam results were discussed and reviewed in detail. No major barriers to patient understanding were identified. An opportunity to ask questions regarding the treatment plan was provided. All questions were answered. The patient expressed understanding and agreement with the above treatment plan. The patient is aware they should contact our office by phone for worsening of their current condition or the appearance of new urologic symptoms. Compliance i s encouraged with any medications and followup testing that is ordered. It is a privilege to participate in the urologic care of your patient. If you have any questions or concerns regarding treatment for the above conditions, or other urologic issues, please do not hesitate to contact me. The office telephone contact is [phone]. Sincerely, Dr Juanjose Hackett MD, [facility] - Urology Compassionate Specialist Care for the Genitourinary System Coding Level of Care Code New Pt Level 4 (91230) Diagnoses Kidney stone N20.0 Hypospadias in male Q54.9 Low libido R68.82
== END 2024-12-02 14:24 | disposition home or self-care (01) ==
LOC: HO.HUSH 13:34
PROVIDERS: Visit Provider Urology
DX: N20.0 Calculus of kidney (principal); Q54.9 Hypospadias, unspecified; R68.82 Decreased libido
CPT/HCPCS: 99204

== ENCOUNTER → 2024-12-02 13:34 | Outpatient (BNVA) | payer OTHER, SELFPAY | PROVIDERS: Visit Provider Urology | DX: N20.0 Calculus of kidney (principal); Q54.9 Hypospadias, unspecified; R68.82 Decreased libido | CPT/HCPCS: 99202 ==

== ENCOUNTER 2024-12-08 13:45 | Outpatient (REF) | payer OTHER, SELFPAY ==
--- OUTSIDE RECORDS SUMMARY | 2024-12-08 14:44 | XMS_ITS | Patient Health Record ---
Author Organization [facility] Address [address] [place], [place] [address] Care Team Providers Care Hospital Chief Executive Officer Name Role Phone Lupe Perry Unavailable [phone] Allergies Allergen (clinical drug ingredient) Drug/Non Drug [...] Notes Problem Obesity due to excess calories (368784006) Other obesity due to excess calories (E66.09) Active confirmed Problem Recurrent major depression (34099272) Major depressive disorder, recurrent, unspecified (F33.9) Active confirmed Problem Generalized anxiety disorder (77698704) Generalized anxiety disorder (F41.1) Active confirmed Problem Chronic intractable migraine without aura (703196830858634) Chronic migraine without aura, intractable, without status migrainosus (G43.719) Active confirmed Problem Insomnia (412665567) Insomnia, unspecified (G47.00) Active confirmed Problem DOBSON - Nonalcoholic steatohepatitis (060474584) Nonalcoholic steatohepatitis (DOBSON) (K75.81) Active confirmed Problem Sciatica (70171698) Lumbago with sciatica, unspecified side (M54.40) Active confirmed Plan Of Treatment No Information Insurance Providers Payer Name Payer Address Payer Phone Subscriber Number Group Number Insured Name Patient Relationship to Insured Coverage Start Date Coverage End Date GIULIANO ROSENDO [address] [place] [phone] [id number] Yamil Quarles Self - patient is the insured Medical (General) History Medical History History ICD Code anxiety insomnia migraines cluster headaches depression situational AFib s/p cardioversion Surgical History Surgery Date(Month/Year) appendectomy 2016 wisdom teeth 2001 Botox injection for migraine- 2nd set sc heduled for 09/201707/15/2017 Hospitalization History Reason Date(Month/Year) [facility] - extreme depression / anxiety January 2016 AFib - cardioversion 2015 AFib - cardioversion 2011 [place] - syncope; w/u WNL 2015
[2024-12-08 17:36] LABS: Appearance Urine Clear; Color Urine Yellow; Glucose Urine UA Negative (Negative); Leukocyte Esterase Urine Negative (Negative); Nitrite Urine Negative (Negative); PH 6.5 (5.0-9.0); Urine Blood Negative (Negative); Urine Ketones Trace mg/dL (Negative); Urine Protein Trace mg/dL (Neg-Trace)
[2024-12-08 18:01] LABS: Alanine Aminotransferase 45 U/L (0-40); Albumin Level 4.5 g/dL (3.5-5.0); Alkaline Phosphatase 129 U/L (39-117); Anion Gap 12 (12-20); Aspartate Amino Transferase 27 U/L (5-37); Bilirubin Direct 0.1 mg/dL (0.0-0.5); Bilirubin Total 0.3 mg/dL (0.0-1.0); Blood Urea Nitrogen 5 mg/dL (9-16); Calcium 8.8 mg/dL (8.4-10.2); Carbon Dioxide 28 mmol/L (22-29); Chloride 104 mmol/L (96-108); Cholesterol 233 mg/dL (<200); Estimated Glomerular Filt Rate > 60; Glucose Random 91 mg/dL (60-115); HDL Cholesterol 38 mg/dL (>40); LDL Cholesterol Calculated 150 mg/dL (<100); Phosphorus 3.3 mg/dL (2.7-4.5); Potassium 3.2 mmol/L (3.3-5.1); Sodium 141 mmol/L (135-145); Total Protein 7.5 g/dL (6.5-8.0); Triglycerides 229 mg/dL (<150)
[2024-12-08 18:06] LABS: Hematocrit 42.6 % (42.0-52.0); Hemoglobin 14.6 g/dl (14.0-18.0); Mean Corpuscular HGB Conc 34.3 g/dl (31.0-36.0); Mean Corpuscular Hemoglobin 28.1 pg (27.0-33.0); Mean Corpuscular Volume 82.1 fL (80.0-98.0); Mean Platelet Volume 8.3 fL (9.4-12.4); Platelet Count 283 X10*3/uL (160-400); Red Blood Count 5.19 X10*6/uL (4.60-5.80); Red Cell Distribution Width 14.1 % (11.0-16.0); White Blood Count 9.7 X10*3/uL (4.8-10.8)
[2024-12-08 18:17] LABS: Vitamin D 25-OH Total 20.2 ng/mL (>30)
[2024-12-08 18:24] LABS: Folate 4.8 ng/mL (> or = 4.0); Vitamin B12 294 pg/mL (200-900)
[2024-12-08 18:27] LABS: Estimated Average Glucose 100 mg/dL; Hemoglobin A1c % 5.1 % (<6.0); Total Hemoglobin (HGBA1C) 3776.1474 umol/L
[2024-12-09 03:00] LABS: Lutenizing Hormone 3.4 mIU/mL (1.5-9.3)
[2024-12-12 13:58] LABS: Vitamin B1 <6 nmol/L (8-30)
[2024-12-12 19:43] LABS: Testosterone, Free 12.8 pg/mL (35.0-155.0); Testosterone, Total 70 ng/dL (250-1100)
== END 2024-12-08 13:46 | disposition home or self-care (01) ==
LOC: HO.WFDLDS 13:45
PROVIDERS: Internal Medicine; Referring Provider Physician Assistant Medical; Visit Provider Urology
DX: Z00.00 Encounter for general adult medical examination without abnormal findings (principal); Q54.9 Hypospadias, unspecified; G25.81 Restless legs syndrome; E66.01 Morbid (severe) obesity due to excess calories; K21.9 Gastro-esophageal reflux disease without esophagitis; E87.6 Hypokalemia; Z12.5 Encounter for screening for malignant neoplasm of prostate; Z13.1 Encounter for screening for diabetes mellitus
CPT/HCPCS: 36415; 80048; 80061; 80076; 81003; 82306; 82607; 82746; 83002; 83036; 84100; 84153; 84402; 84403; 84425; 85027

== ENCOUNTER 2024-12-30 13:18 | Outpatient (AMB) | payer OTHER, SELFPAY ==
--- NOTE | 2024-12-30 13:18 | A.OFFPC_ITS ---
Intake Visit Reasons: 3 mo follow Meat Apprentice Required: No Machining Associate: Not Required per policy Accompanied by: Self / Same As Patient Allergies metoclopramide (From REGLAN) Allergy (Intermediate, Verified 01/17/25 20:17) AGITATION prochlorperazine (From COMPAZINE) Allergy (Intermediate, Verified 01/17/25 20:17) AGITATION diphenhydramine (From BENADRYL) Adverse Reaction (Intermediate, Verified 01/17/25 20:17) AGITATION Medication List - Last Reconciled 01/17/25 by Marcel Cruz MD acetaminophen (Tylenol Extra Strength) 500 mg PO Q6H PRN amlodipine 10 mg PO DAILY bupropion HCl XL 1 tab PO QAM cholecalciferol (vitamin D3) 50 mcg PO DAILY clonazepam 1 tab PO BEDTIME PRN cyclobenzaprine 10 mg PO TID PRN gabapentin 300 mg PO BID ibuprofen 800 mg PO Q6H PRN lidocaine 5% (Lidoderm) 1 patch topical DAILY PRN MDD remove after 12 hours naproxen 500 mg PO BID PRN 10 days omeprazole 20 mg PO DAILY ondansetron 4 mg PO Q6-8H PRN rizatriptan mg PO topiramate 25 mg PO BID trazodone 150 mg PO BEDTIME Tobacco use date assessed: 09/23/24 Dental Screening Dental Screen Date: 09/02/24 HPI 3 mo follow HPI Details 39-year-old male wishes to discuss his [facility] health via [employer]. Compliant with all medications and reporting no side effects. Able to function and do all activities of daily living. [facility] Medical History Thiamin deficiency Vitamin D deficiency Left shoulder pain Decreased range of motion of shoulder Spondylosis Anemia Primary hypertension Obstructive sleep apnea Class 2 severe obesity with body mass index (BMI) of 35 to 39.9 with serious comorbidity Kidney stone Migraine Afib Depression Anxiety GERD (gastroesophageal reflux disease) Pneumonia Surgical History History of wisdom tooth extraction Hx of cholecystectomy Hx of appendectomy Family History Other Diabetes HTN (hypertension) Substance use disorder Social History Housing: Apartment Alcohol intake: current Alcohol intake frequency: holidays/special occasions only Patient Tobacco Use Status: Never used Tobacco e-Cigarette/Vaping Use: Never Used Second Hand Smoke Exposure: No Substance Use Type: Marijuana Advance Directives Date on File: 05/01/20 service: No Current occupational status: disabled Cognitive needs: No Hearing needs: No Vision needs: Yes (glasses) Questionnaire Thrive Questionnaire Date Thrive assessed: 09/02/24 JAROD-7 AMB Questionnaire JAROD-7 Date JAROD - 7 assessed: 09/02/24 Source: Developed by Drs. Diomedes Montanez, Jordana Nieves, George Duke and colleagues, with an educational francisco from [employer]. Physical exam (Primary Care) Tobacco/Smoking Status: Tobacco use Status Tobacco use date assessed 09/23/24 12/30/24 13:22 Patient Tobacco Use Status Never used Tobacco 12/30/24 13:22 e-Cigarette/Vaping Use Never Used 12/30/24 13:22 Thrive Assessment: Date of Thrive Assessment Date Thrive assessed 09/02/24 12/30/24 13:22 Telehealth Telehealth Telehealth Platform: [facility] Location of provider rendering services: practice address Location of patient: address on file Patient Identification confirmed using: Name, : Yes Telehealth method: video Patient verbally consented to treatment: Yes Patient verbally consented to billing insurance company: Yes Patient informed of any privacy concerns related to visit: Yes Minutes spent on Phone/Video with Pt.: 10 Coding Level of Care Code Tele Est Pt Level 3 (35804) Complex EM visit Add On G2211 Diagnoses Primary hypertension I10 Assessment & Plan Assessment & Plan (1) Primary hypertension: Code(s): I10 - Essential (primary) hypertension Category: Medical Plan: Continue current medications. Counselling on the importance of diet and execise done.
--- OUTSIDE RECORDS SUMMARY | 2024-12-30 14:26 | XMS_ITS | Patient Health Record ---
Author Organization [facility] Address [address], [place] [id number] Care Team Providers Care Transportation Analyst Name Role Phone Lupe Perry Unavailable [phone] Allergies Allergen (clinical drug ingredient) Drug/Non Drug [...] Notes Problem Obesity due to excess calories (490601640) Other obesity due to excess calories (E66.09) Active confirmed Problem Recurrent major depression (24393760) Major depressive disorder, recurrent, unspecified (F33.9) Active confirmed Problem Generalized anxiety disorder (22991733) Generalized anxiety disorder (F41.1) Active confirmed Problem Chronic intractable migraine without aura (452850279167139) Chronic migraine without aura, intractable, without status migrainosus (G43.719) Active confirmed Problem Insomnia (902007751) Insomnia, unspecified (G47.00) Active confirmed Problem DOBSON - Nonalcoholic steatohepatitis (578162187) Nonalcoholic steatohepatitis (DOBSON) (K75.81) Active confirmed Problem Sciatica (52714207) Lumbago with sciatica, unspecified side (M54.40) Active confirmed Plan Of Treatment No Information Insurance Providers Payer Name Payer Address Payer Phone Subscriber Number Group Number Insured Name Patient Relationship to Insured Coverage Start Date Coverage End Date GIULIANO ROSENDO [address] [place] [phone] [id number] Yamil Quarles Self - patient is the insured Medical (General) History Medical History History ICD Code anxiety insomnia migraines cluster headaches depression situational AFib s/p cardioversion Surgical History Surgery Date(Month/Year) appendectomy 2016 wisdom teeth 2001 Botox injection for migraine- 2nd set sc heduled for 09/201707/15/2017 Hospitalization History Reason Date(Month/Year) [facility] - extreme depression / anxiety January 2016 AFib - cardioversion 2015 AFib - cardioversion 2011 [facility] - syncope; w/u WNL 2015
== END 2024-12-30 16:00 | disposition home or self-care (01) ==
LOC: HO.HMCH 13:18
PROVIDERS: PCP Internal Medicine; Visit Provider Internal Medicine
DX: I10 Essential (primary) hypertension (principal)

== ENCOUNTER → 2024-12-30 13:18 | Outpatient (BNVA) | payer OTHER, SELFPAY | PROVIDERS: PCP Internal Medicine; Visit Provider Internal Medicine ==

== ENCOUNTER 2025-01-26 11:18 | Outpatient (RCR) | payer OTHER, SELFPAY ==
--- NOTE | 2025-01-06 12:40 | MHC.PT.EP ---
[facility] [place] Office [place] Office [place] Office [address] Shetty [address] [phone] F: [phone] F: [phone] F: [phone] F: [phone] Physical Therapy Plan of Care Date of Evaluation: 01/06/25 Date of Surgery: Diagnosis: CERVICAL STRAIN, SPONDYLOSIS Assessment: 39 YO, LEFT HAND DOMINANT MALE REF TO PT FOR CERVICAL SPONDYLOSIS , EXACERBATED IN AUG 2024. HE HAS BEEN ON DISABILITY FOR MIGRAINES x 5 YRS- OBJECTIVE FINDINGS: DECR POSTURAL AWARENESS, LIMITED ROM Lt CERV AND SH, (+) POST RC/ SCAP STRENGTH DEFICITS, SEDENTARY LIFESTYLE, AND PAIN W PALP Lt CERV PS/ Lt UT/ Lt PARASCAP AREA. HE DENIES RADICULAR SXS. FUNCTIONALLY, THE Pt HAS DIFFIC W LIFTING OBJECTS, SLEEPING, AND DRIVING. WE DISCUSSED PT POC AND Pt IS IN AGREEMENT, WE WILL THEREFORE PROCEED ACCORDINGLY. Frequency and Duration: The patient will be seen 2 x WK x 4 WKS Short Term Goals: DECR CERV/ Lt SH PAIN TO 2-3/10 INITIATE HEP Pt INDEP SELF-CORRECT POSTURE WFL AROM CERV AND Lt SH Mcfp Goals: Pt INDEP HEP AND SELF SX MGMT TECHN IMPROVED NPDI , 19/50 AT EVAL Pt RESUME REG ADLs, SLEEP Treatment Plan: Modalities to reduce pain, spasms and effusion. Manual therapy to restore motion and function. Therapeutic exercise to improve strength and flexibility. Neuromuscular re-education for posture and balance. Therapeutic activities to return to functional activities of daily living. Electronically signed by: CHET OLIVEROS,PT Please sign and return to therapist. Thank you for your referral.
--- NOTE | 2025-01-26 11:24 | MHC.PT.DC ---
[facility] [place] Office [place] Office [place] Office [address]tty [address] [phone] F: [phone] F: [phone] F: [phone] F: [phone] Physical Therapy Discharge Report Diagnosis: CERVICAL STRAIN, SPONDYLOSIS Date of Surgery: Date of Evaluation: 01/06/25 Date of Discharge: 01/26/25 Treatments to Date: 3 Cancellations to Date: 2 No Shows to Date: 2 Discharge Status: Patient Elected to Stop Discharge Summary: THE Pt CONTACTED THE PT DEPT TO CANCEL LAST APPT/ SELF -DISCHARGE HE IS SCHEDULED FOR A PROCEDURE FRIDAY . HE HAS HAD INCONSISTENT ATTENDANCE FOR SCHED PT APPTS- WE WERE ABLE TO INITIATE A HEP AND EDUC RE POSTURAL SELF CORRECTION/ INCR AWARENESS. Electronically signed by: CHET OLIVEROS,PT Please sign and return to therapist. Thank you for your referral.
== END 2025-01-26 11:25 | disposition home or self-care (01) ==
LOC: HO.PT 11:18
PROVIDERS: PCP Internal Medicine; Visit Provider Physician Assistant Medical
DX: M25.512 Pain in left shoulder (principal); M47.812 Spondylosis without myelopathy or radiculopathy, cervical region; M75.92 Shoulder lesion, unspecified, left shoulder
CPT/HCPCS: 97110; 97140; 97162

== ENCOUNTER 2025-01-27 10:04 | Day surgery (SDC) | payer OTHER, SELFPAY ==
--- OUTSIDE RECORDS SUMMARY | 2025-01-07 13:49 | XMS_ITS | Patient Health Record ---
Author Organization [facility] Address [address] [place], [place] [id number] Care Team Providers Care Lead Java J2Ee Developer Name Role Phone Lupe Perry Unavailable [phone] Allergies Allergen (clinical drug ingredient) Drug/Non Drug [...] Notes Problem Obesity due to excess calories (136969448) Other obesity due to excess calories (E66.09) Active confirmed Problem Major depressive disorder, recurrent, unspecified (F33.9) Active confirmed Problem Generalized anxiety disorder (62563775) Generalized anxiety disorder (F41.1) Active confirmed Problem Chronic intractable migraine without aura (272578621018488) Chronic migraine without aura, intractable, without status migrainosus (G43.719) Active confirmed Problem Insomnia (228919132) Insomnia, unspecified (G47.00) Active confirmed Problem DOBSON - Nonalcoholic steatohepatitis (376936628) Nonalcoholic steatohepatitis (DOBSON) (K75.81) Active confirmed Problem Sciatica (07884509) Lumbago with sciatica, unspecified side (M54.40) Active confirmed Plan Of Treatment No Information Insurance Providers Payer Name Payer Address Payer Phone Subscriber Number Group Number Insured Name Patient Relationship to Insured Coverage Start Date Coverage End Date GIULIANO ROBBINS [address] [place], [place] [phone] [id number] Yamil Quarles Self - patient is the insured Medical (General) History Medical History History ICD Code anxiety insomnia migraines cluster headaches depression situational AFib s/p cardioversion Surgical History Surgery Date(Month/Year) appendectomy 2016 wisdom teeth 2001 Botox injection for migraine- 2nd set sc heduled for 09/201707/15/2017 Hospitalization History Reason Date(Month/Year) [facility] - extreme depression / anxiety January 2016 AFib - cardioversion 2015 AFib - cardioversion 2011 [facility] - syncope; w/u WNL 2015
[2025-01-25 07:48] VITALS: BMI 35.7
--- NOTE | 2025-01-26 10:07 | HO.ANESPROP2 ---
Documented by User: Danii Medina NP 01/26/25 10:38 HPI - Anesthesia Eval Consult details Narrative: 39yo M for Cystoscopy examination with possible meatotomy Hx afib: chart review shows PAF with vomiting/electrolyte shifts. Last 2020 in ER with med cardioversion. Documentation shows pt had been cardioverted previously as well. No anticoag/no antiarrhythmics. Unable to reach patient by phone PMFSH Active Problems Active Problems: All Active Problems Thiamin deficiency (Acute) Vitamin D deficiency (Acute) Hypospadias in male (Acute) Low libido (Acute) Kidney stone (Acute) Left supraspinatus tendonitis (Acute) Cervical spondylosis (Acute) Muscle spasms of neck (Acute) Left shoulder pain (Acute) Decreased range of motion of shoulder (Acute) Spondylosis (Acute) Restless leg syndrome (Acute) Sleep difficulties (Acute) Snoring (Acute) Muscle spasms of lower extremity (Acute) Fatigue (Acute) Primary hypertension (Acute) Obstructive sleep apnea (Acute) Class 2 severe obesity with body mass index (BMI) of 35 to 39.9 with serious comorbidity (Acute) Chondromalacia, left knee (Acute) MCL sprain of left knee (Acute) Chondromalacia, right knee (Acute) MCL sprain of right knee (Acute) Meniscus, medial, derangement (Acute) Chest pain (Acute) Elevated liver enzymes (Acute) Hx of cholecystectomy (Acute) Hx of appendectomy (Acute) Pneumonia (Acute) Migraine (Acute) GERD (gastroesophageal reflux disease) (Acute) Depression (Acute) Anxiety (Acute) Afib (Acute) Past Medical History Medical History (Updated 01/27/25 @ 10:30 by Evie Oden RN) Thiamin deficiency Vitamin D deficiency Left shoulder pain Decreased range of motion of shoulder Spondylosis Anemia Primary hypertension Obstructive sleep apnea Class 2 severe obesity with body mass index (BMI) of 35 to 39.9 with serious comorbidity Kidney stone Migraine Afib Depression Anxiety GERD (gastroesophageal reflux disease) Pneumonia Family History Family History Other Diabetes HTN (hypertension) Substance use disorder Surgical History Surgical History History of wisdom tooth extraction Hx of cholecystectomy Hx of appendectomy Social History Social History Housing: Apartment Alcohol intake: current Alcohol intake frequency: holidays/special occasions only Patient Tobacco Use Status: Never used Tobacco e-Cigarette/Vaping Use: Never Used Second Hand Smoke Exposure: No Use of substances other than those prescribed or required for medical reasons: Yes Substance Use Type: Marijuana Substance Use Type Other:: gummies-medical card Are you DNR?: No Advance Directives: No Advance Directives Information Provided: Yes Advance Directives Date on File: 05/01/20 Poor oral hygiene: No service: No Current occupational status: disabled Cognitive needs: No Hearing needs: No Vision needs: Yes (glasses) Meds Allergies Allergy/AdvReac Type Severity Reaction Status Date / Time metoclopramide (From REGLAN) Allergy Intermediate AGITATION Verified 01/17/25 20:17 prochlorperazine (From Allergy Intermediate AGITATION Verified 01/17/25 20:17 COMPAZINE) diphenhydramine (From AdvReac Intermediate AGITATION Verified 01/17/25 20:17 BENADRYL) Home Medications ?Medication ?Instructions ?Recorded ?Confirmed ?Last Taken ?Type bupropion HCl 300 mg 24 hr tablet, 1 tab PO QAM 10/19/21 01/27/25 01/27/25 History extended release clonazepam 1 mg tablet 1 tab PO BEDTIME PRN Anxiety 10/19/21 01/17/25 Unknown History rizatriptan 10 mg disintegrating mg PO 10/21/23 01/17/25 Unknown History tablet topiramate 25 mg tablet 25 mg PO BID 11/27/23 01/17/25 Unknown History trazodone 100 mg tablet 150 mg PO BEDTIME 09/23/24 01/17/25 Unknown History gabapentin 300 mg capsule 300 mg PO BID 11/19/24 01/17/25 Unknown History Exam Height,Weight and Vital Signs: Height 5 ft 8.9 in Weight 109.2 kg Pertinent Lab Results Pertinent Lab Results: Laboratory Tests 12/08/24 13:55 WBC 9.7 Hgb 14.6 Hct 42.6 Plt Count 283 Sodium 141 Potassium 3.2 L Chloride 104 Carbon Dioxide 28 BUN 5 L Creatinine 0.74 Narrative Narrative: EKG 2023 Vent. Rate : 065 BPM Atrial Rate : 065 BPM P-R Int : 150 ms QRS Dur : 104 ms QT Int : 486 ms P-R-T Axes : 052 008 035 degrees QTc Int : 505 ms Sinus rhythm with frequent Premature ventricular complexes ST & T wave abnormality, consider anterior ischemia Prolonged QT Abnormal ECG When compared with ECG of 06-AUG-2023 01:45, Premature ventricular complexes are now Present Inverted T waves have replaced nonspecific T wave abnormality in Anterior leads Assessment and Plan Assessment Anesthesia Assessment: Chart Reviewed Documented by User: Wade Barnett MD 01/27/25 11:57 PMFSH Past Medical History Medical History (Updated 01/27/25 @ 10:30 by vEie Oden RN) Thiamin deficiency Vitamin D deficiency Left shoulder pain Decreased range of motion of shoulder Spondylosis Anemia Primary hypertension Obstructive sleep apnea Class 2 severe obesity with body mass index (BMI) of 35 to 39.9 with serious comorbidity Kidney stone Migraine Afib Depression Anxiety GERD (gastroesophageal reflux disease) Pneumonia Family History Family History Other Diabetes HTN (hypertension) Substance use disorder Family history of problems with anesthesia: No Surgical History Surgical History History of wisdom tooth extraction Hx of cholecystectomy Hx of appendectomy History of Problems with Anesthesia: No Social History Social History Housing: Apartment Alcohol intake: current Alcohol intake frequency: holidays/special occasions only Patient Tobacco Use Status: Never used Tobacco e-Cigarette/Vaping Use: Never Used Second Hand Smoke Exposure: No Use of substances other than those prescribed or required for medical reasons: Yes Substance Use Type: Marijuana Substance Use Type Other:: gummies-medical card Are you DNR?: No Advance Directives: No Advance Directives Information Provided: Yes Advance Directives Date on File: 05/01/20 Poor oral hygiene: No service: No Current occupational status: disabled Cognitive needs: No Hearing needs: No Vision needs: Yes (glasses) Meds Allergies Allergy/AdvReac Type Severity Reaction Status Date / Time metoclopramide (From REGLAN) Allergy Intermediate AGITATION Verified 01/17/25 20:17 prochlorperazine (From Allergy Intermediate AGITATION Verified 01/17/25 20:17 COMPAZINE) diphenhydramine (From AdvReac Intermediate AGITATION Verified 01/17/25 20:17 BENADRYL) Home Medications ?Medication ?Instructions ?Recorded ?Confirmed ?Last Taken ?Type bupropion HCl 300 mg 24 hr tablet, 1 tab PO QAM 10/19/21 01/27/25 01/27/25 History extended release clonazepam 1 mg tablet 1 tab PO BEDTIME PRN Anxiety 10/19/21 01/17/25 Unknown History rizatriptan 10 mg disintegrating mg PO 10/21/23 01/17/25 Unknown History tablet topiramate 25 mg tablet 25 mg PO BID 11/27/23 01/17/25 Unknown History trazodone 100 mg tablet 150 mg PO BEDTIME 09/23/24 01/17/25 Unknown History gabapentin 300 mg capsule 300 mg PO BID 11/19/24 01/17/25 Unknown History Exam Airway Mallampati Class: II TM Dist: <=3cm Neck ROM: Full Loose/Missing/Broken Teeth: No Heart: ok Lungs: ok Assessment and Plan Assessment Anesthesia Assessment: Anesthesia Plan Discussed Final Anesthetic Review Family History of Problems with Anesthesia: No History of Problems with Anesthesia: No NPO: Yes ASA Class: III Final Preanesthetic Review: No Changes in Pt Med Stat, Meds/Allgs Chart Reviewed, Consent Obtained/Reviewed and Anes Risks/Benef Reviewed Patient Risk: Intermediate Procedure Risk: Low Anesthetic Plan Anesthetic Plan: GA and Agree w/ Assess. and Plan Disposition: Standard PACU
[2025-01-27 10:31] VITALS: BMI 33.7
[2025-01-27 10:47] VITALS: BP 130/89; PULSE 93; RESP 16; TEMP 36.3; O2SAT 97
--- NOTE | 2025-01-27 12:33 | P.HPSUR_ITS ---
Pre-Procedural Eval Section A - 24 Hr Update-Section A only Date of Service: 01/27/25 The patient is an INPATIENT: No Changes since office visit: No Cold of Flu in the past 2 weeks, No New Medical Problems, No Changes in Medication and No Patient answered all questions The patient has been examined within 24 hours of the surgical procedure. The History & Physical has been completed within 30 days and I have reviewed it.: Yes Section B - Complete if H&P > 30 days Chief Complaint: Other urethral stricture, male, meatal Allergies: Allergies Allergy/AdvReac Type Severity Reaction Status Date / Time metoclopramide (From REGLAN) Allergy Intermediate AGITATION Verified 01/17/25 20:17 prochlorperazine (From Allergy Intermediate AGITATION Verified 01/17/25 20:17 COMPAZINE) diphenhydramine (From AdvReac Intermediate AGITATION Verified 01/17/25 20:17 BENADRYL) Review of Systems Sugical H&P ROS: Negative: Constitution, Cardiovascular, Respiratory, Neurological, Psychiatric, Hem-Onc, Allergic/Immunologic, Gastrointestinal, Genitourinary, Musculoskeletal, Integumentary, Endocrine and Eyes/E ars/Nose/Throat Exam Surgical H&P Exam: Normal: HEENT, Normal: Heart, Normal: Lungs, Normal: Extremities, Normal: Abdomen, Normal: Skin and Normal: Neurological Plan Diagnosis/Plan: Unchanged (penile meatus exam under anestehsia and scope) I have reviewed the history and physical and performed a pertinent physical examination on my patient. No changes have occurred unless specified. Time Spent With Patient Time: Total time managing care of this patient today ____ minutes.
[2025-01-27 13:16] VITALS: BP 100/58; PULSE 89; RESP 17; TEMP 36.1; O2SAT 94
[2025-01-27 13:20] VITALS: BP 95/62; PULSE 89; RESP 17; O2SAT 95
[2025-01-27 13:25] VITALS: BP 100/62; PULSE 81; RESP 17; O2SAT 95
[2025-01-27 13:30] VITALS: BP 118/85; PULSE 83; RESP 17; O2SAT 96
--- NOTE | 2025-01-27 13:41 | P.OP_ITS ---
Operative Note Operative Note Date of Service: 01/27/25 Narrative: PreOperative Diagnosis: Urethral Meatal stenosis Post Operative Diagnosis: Urethral Meatal flap Procedure: Examination under anesthesia Surgeon: Dr Juanjose Hackett Anesthesia: Sedation Indications for procedure: Variability in urination. Had hypospadias repair performed as 1-year-old Procedure: After informed consent was verified the patient was brought to the operating room and placed in a supine position. Anesthesia was administered per protocol. The patient was prepped and draped in a sterile fashion. Safety pause time-out was performed. Antibiotics being given. Penile meatus examined. Scarring seen from hypospadias repair performed 40 years ago. Meatal tip examined. There appeared to be a flap of tissue from the dorsal aspect that could clearly hinge. Twelve English silicone catheter placed without difficulty. No evidence of any proximal narrowing. Pictures taken to show patient. Recommendation would be for removal of tissue flap. This was not consented today. He tolerated the procedure well was extubated in the operating room and transferred in stable condition to the recovery area. Pathology: [] Drains: []
[2025-01-27 13:45] VITALS: BP 115/84; PULSE 82; RESP 16; O2SAT 95
== END 2025-01-27 14:19 | disposition home or self-care (01) ==
PROVIDERS: PCP Internal Medicine; Visit Provider Urology
PROC: 0TJB8ZZ Inspection of Bladder, Via Natural or Artificial Opening Endoscopic (ICD-10-PCS; CPT 52000; principal; 2025-01-27 12:10)
DX: N35.811 Other urethral stricture, male, meatal (principal); Z87.710 Personal history of (corrected) hypospadias; R39.198 Other difficulties with micturition
CPT/HCPCS: 52000; J0690; J2003; J2250; J2704; J2795; J3010

== ENCOUNTER → 2025-01-27 10:04 | Outpatient (BNV) | payer OTHER, SELFPAY | PROVIDERS: PCP Internal Medicine; Visit Provider Urology | DX: N35.911 Unspecified urethral stricture, male, meatal (principal) | CPT/HCPCS: 53020 ==

== ENCOUNTER 2025-02-09 09:59 | Outpatient (AMB) | payer OTHER, SELFPAY ==
--- NOTE | 2025-02-09 09:59 | MHC.OFFVIS ---
Intake Visit Reasons: Meatotomy/labs Intake Note: Patient is present for Urethral stricture Urology Medication:NONE Antibiotic Allergy:NONE Blood Thinner:NONE Shank Tapper Required: No Accompanied by: Self / Same As Patient Allergies metoclopramide (From REGLAN) Allergy (Intermediate, Verified 02/09/25 10:01) AGITATION prochlorperazine (From COMPAZINE) Allergy (Intermediate, Verified 02/09/25 10:01) AGITATION diphenhydramine (From BENADRYL) Adverse Reaction (Intermediate, Verified 02/09/25 10:01) AGITATION HPI Comments Details: Yamil is a pleasant male. He is seen for the following urologic conditions - nephrolithiasis - hypospadias - low libido Telemedicine Evaluation 15 min Consultation [employer] [place] Video Discussed findings from recent examination under anesthesia Recommend CO2 laser of skin tag with the meatus Has started testosterone restorationism Repeat lab work in 2 months Does have sleep apnea and is not consistent with mask wearing Hypospadias Repair at 1 years old Performed locally by Dr. Branch Now with stream divergence Recommend examination under anesthesia with possible meatotomy Nephrolithiasis Yamil presents for - initial evaluation for nephrolithiasis, Initial presentation through emergency department Presenting symptoms included flank pain with associated nausea Imaging - 10/05 CT Right side: There is an obstructing 3 mm calculus within the distal right ureter resulting in right-sided hydroureter and periureteric inflammation. There is fullness of the right renal pelvis without sheila right-sided hydronephrosis. Left side: The left kidney is normal in size, shape, and attenuation. No hydronephrosis, hydroureter, or calculi seen. No perinephric stranding. At this stage symptoms resolved Does report increased cola intake [facility] Medical History (Updated 02/09/25 @ 10:39 by Juanjose Hackett MD) Thiamin deficiency Vitamin D deficiency Left shoulder pain Decreased range of motion of shoulder Spondylosis Anemia Primary hypertension Obstructive sleep apnea Class 2 severe obesity with body mass index (BMI) of 35 to 39.9 with serious comorbidity Kidney stone Migraine Afib Depression Anxiety GERD (gastroesophageal reflux disease) Pneumonia Surgical History History of wisdom tooth extraction Hx of cholecystectomy Hx of appendectomy Family History Other Diabetes HTN (hypertension) Substance use disorder Social History Housing: Apartment Alcohol intake: current Alcohol intake frequency: holidays/special occasions only Patient Tobacco Use Status: Never used Tobacco e-Cigarette/Vaping Use: Never Used Second Hand Smoke Exposure: No Substance Use Type: Marijuana Advance Directives Date on File: 05/01/20 service: No Current occupational status: disabled Cognitive needs: No Hearing needs: No Vision needs: Yes (glasses) Review of Systems Const All systems reviewed & are unremarkable except as noted in HPI and below Reports no additional complaints Resp Reports no additional complaints GI Reports no additional complaints Reports as per HPI Musc Reports no additional complaints Physical Exam Telemedicine evaluation Appropriate responses Regular breathing rate and rhythm HEENT Head: Yes normal to inspection Ears: hearing grossly normal bilaterally Eyes General: appearance normal, both eyes and all related structures Neck Neck: Yes normal visual inspection Chest Chest palpation & inspection: normal inspection of the chest Resp Effort & Inspection: normal respiratory effort and able to speak in complete sentences Telehealth Telehealth Telehealth Platform: [employer] Location of provider rendering services: practice address Location of patient: address on file Patient Identification confirmed using: Name, : Yes Telehealth method: video Patient verbally consented to treatment: Yes Patient verbally consented to billing insurance company: Yes Patient informed of any privacy concerns related to visit: Yes Minutes spent on Phone/Video with Pt.: 15 Assessment & Plan Assessment & Plan (1) Hypospadias in male: Code(s): Q54.9 - Hypospadias, unspecified Category: Medical (2) Hypogonadism in male: Code(s): E29.1 - Testicular hypofunction Category: Medical Plan Schedule procedure Risks, benefits and alternatives to therapy were discussed. These include but are not limited to infection, bleeding, damage to local organs and tissues, need for further interventions. Anesthetic risks regarding cardiac arrhythmia, blood clots, and potential mortality were discussed. The patient understands the typical recovery time and the outpatient nature of the procedure. After consideration of these risks the patient gives full informed consent and they wish to move ahead with the procedure. - CO2 laser of meatal penile skin tag Check testosterone levels in 2 months Orders: Orders Testosterone, Total 2 Months E29.1 - Testicular hypofunction Lutenizing Hormone 2 Months E29.1 - Testicular hypofunction Patient Instructions: This note is constructed using voice recognition software. While every effort has been made to ensure accuracy aerodynamics engineer errors may have been included. Imaging studies, laboratory and physical exam results were discussed and reviewed in detail. No major barriers to patient understanding were identified. An opportunity to ask questions regarding the treatment plan was provided. All questions were answered. The patient expressed understanding and agreement with the above treatment plan. The patient is aware they should contact our office by phone for worsening of their current condition or the appearance of new urologic symptoms. Compliance is encouraged with any medications and followup testing that is ordered. It is a privilege to participate in the urologic care of your patient. If you have any questions or concerns regarding treatment for the above conditions, or other urologic issues, please do not hesitate to contact me. The office telephone contact is [phone]. Sincerely, Dr Juanjose Hackett MD, [facility] U[facility] Compassionate Specialist Care for the Genitourinary System Coding Level of Care Code Tele Est Pt Level 4 (41908) Diagnoses Hypospadias in male Q54.9 Hypogonadism in male E29.1
--- OUTSIDE RECORDS SUMMARY | 2025-02-09 10:45 | XMS_ITS | Clinical Summary ---
Demographics Address [address] [place] [address] Mobile Phone Home Phone Email Address Preferred Language Andorran Marital Status /Civil Union Congregational Affiliation Unknown Race White Ethnic Group Not or Lati no Author Organization [facility] Address [address] [address] Phone Support Name Relationship Address Phone Dyana Willson Personal Relationship [address] [place] [address] Care Team Providers Care Mounting Inspector Name Role Phone Marcel Cruz MD Primary Care Provid er Allergies Active Allergy Reactions Criticality Noted Date Comments Benadryl (Diphenhydramine Hcl) Unknown 01/29 Prochlorperazine 04/22/2021 Metoclopramide Anxiety Low 12/10/2015 Medications diazePAM (VALIUM) 2 MG tablet Take 1 tablet (2 mg total) by mouth 2 (two) times a day for 10 doses. 10 tablet 1 Active buPROPion (WELLBUTRIN XL) 300 MG ER 24 hr tablet Take 300 mg by mouth every morning. 4 Active clonazePAM (KLONOPIN) 1 MG tablet Take 1 mg by mouth nightly at bedtime as needed. Active hydroCHLOROthiazide (HYDRODIURIL) 25 MG tablet Take 1 tablet by mouth every morning. 4 Active ibuprofen (ADVIL,MOTRIN) 600 MG tablet TAKE 1 TABLET BY MOUTH EVERY 6 HOURS NEEDED FOR FEVER OR PAIN 4 Active omeprazole (PRILOSEC) 20 MG capsule Take 1 capsule by mouth every morning. 4 Active ondansetron (ZOFRAN-ODT) 4 MG disintegrating tablet TAKE 1 TABLET BY MOUTH EVERY 6 TO 8 HOURS NEEDED FOR NAUSEA AND VOMITING 4 Active QUEtiapine (SEROQUEL) 100 MG tablet take 1 tablet by mouth everyday at bedtime 4 Active risperiDONE (RISPERDAL) 1 MG tablet take 1 tablet by mouth everyday at bedtime 4 Active traZODone (DESYREL) 100 MG tablet take 1 tablet by mouth everyday at bedtime Active propranoloL (INDERAL LA) 80 mg 24 hr capsule take 1 capsule by mouth every day 90 capsule 4 4 Active rizatriptan (MAXALT-TOE PULLER) 10 MG disintegrating tablet TAKE 1 TABLET BY MOUTH NEEDED FOR MIGRAINE. MAY REPEAT IN 2 HOURS IF NEEDED 9 tablet 5 4 Active topiramate (TOPAMAX) 25 MG tablet Take 3 tablets (75 mg total) by mouth 2 (two) times a day. 540 tablet 2 4 Active erenumab-aooe (AIMOVIG AUTOINJECTOR) 140 mg/mL subcutaneous injection Inject 1 mL (140 mg total) under the skin every 28 days. 3 mL 3 4 Active Active Problems Problem Noted Date Diagnosed Date Syncope 01/31/2016 Social History Tobacco Use Types Packs/Day Years Used Date Smoking Tobacco: Never Alcohol Use Standard Drinks/Week Comments No 0 (1 standard drink = 0.6 oz pur e alcohol) 0CCASSIONALLY Education Answer Date Recorded Are you interested in more education? Not on mariama e 11/08/2022 Are you concerned about learning? Not on file 11/08/2022 No 11/08/2022 No 11/08/2022 Digital Access Answer Date Recorded No 12/09/2022 No 12/09/2022 No 12/09/2022 Reliable internet access at home? Not on file 12/09/2022 Device with a working camera? Not on file Sex and Gender Information Value Date Recorded Sex Assigned at Male 09/16/2023 2:58 PM EST Legal Sex Male 9:53 PM EDT Gender Identity Male 09/16/2023 2:58 PM EST Sexual Orientation Straight 09/16/2023 2: 58 PM EST Last Filed Vital Signs Vital Sign Reading Time Taken Comments Blood Pressure 132/85 10/15/2023 8:51 AM EDT Pulse 92 10/15/2023 8:51 AM EDT Temperature 36.2 C (97.2 F) 04/22/2021 6:58 PM EDT Respiratory Rate 20 04/22/2021 9:52 PM EDT Oxygen Saturation 98% 04/22/2021 9:52 PM EDT Inhaled Oxygen Concentration - - Weight 95.3 kg (210 lb) 10/15/2023 8:51 AM EDT Height 175.3 cm (5' 9 ) 10/15/2023 8:51 AM EDT Body Mass Index 31.01 10/15/2023 8:51 AM EDT Plan of Treatment Health Maintenance Due Date Last Done Comments Adult Td,Tdap Booster 1985 LIPID PANEL 1985 HEPATITIS C SCREENING 10/25/2001 HIV ONE-TIME SCREENING (18-6 5 YEARS) 10/25/2001 SMOKING STATUS SCREENING (On ce After 26 Yrs) 10/25/2009 POTASSIUM LEVEL 01/30/2017 01/31/2016 SCREENING FOR DIABETES 01/30/2019 01/31/2016 COVID-19 VACCINE ( - 2023-2 5 season) 2024 11/17/2020 DEPRESSION SCREENING 10/13/2024 10/14/2023 HEPATITIS A VACCINES Aged Out No long er eligible based on patient's age to complete this topic HIB VACCINES Aged Out No longer eligi ble based on patient's age to complete this topic MENINGOCOCCAL VACCINES (ACWY) Aged Out No longer eligible based on patient's age to complete this topic MENINGOCOCCAL VACCINES (B) Aged Out N o longer eligible based on patient's age to complete this topic PNEUMOCOCCAL VACCINES (0-49 years) Aged Out No longer eligible based on patient's age to complete this topic Medical Devices Not on file Procedures Procedure Name Priority Date/Time Associated Diagnosis Comments BASIC METABOLIC PANEL STAT 01/31/2016 2:14 AM EDT from Last 3 Months or Most Recently Relevant to Health Maintenance Results * Basic metabolic panel (01/31/2016 2:14 AM EDT) SODIUM 139 135 - 145 mmol/L [facility] DEPARTMENT OF PATHOLOGY POTASSIUM 4.0 3.4 - 5.0 mmol/L [facility] DEPARTMENT OF PATHOLOGY CHLORIDE 100 98 - 108 mmol/L [facility] DEPARTMENT OF PATHOLOGY CO2 28 23 - 32 mmol/L [facility] DEPARTMENT OF PATHOLOGY BUN 10 8 - 25 mg/dL [facility] DEPARTMENT OF PATHOLOGY CREATININE 0.84 0.60 - 1.50 mg/dL [facility] DEPARTMENT OF PATHOLOGY GLUCOSE 96 70 - 110 mg/dL [facility] DEPARTMENT OF PATHOLOGY CALCIUM 9.0 8.5 - 10.5 mg/dL [facility] DEPARTMENT OF PATHOLOGY EGFR >60 mL/min/1.7 3m2 [facility] DEPARTMENT OF PATHOLOGY Comment:Abnormal if <60 mL/m in/1.73m2. If patient is -Malawian, multiply the result by 1.21. ANION GAP 11 3 - 17 mmol/L [facility] DEPARTMENT OF PATHOLOGY Blood 01/31/2016 2:14 AM EDT 01/31/2016 2:27 AM EDT us Val Solano PA-C LAB BLOOD ORDERABLES Final Result [facility] DEPARTMENT OF PATHOLOGY [address] [place] [phone] from Last 3 Months or Most Recently Relevant to Health Maintenance Insurance [address] [place] [id number] MEDICARE PART A & B [facility] ONE CARE MEDICARE REPLACEMENT MEDICARE PART A & B MEDICARE REPLACEMENT MEDICARE PART A & B MEDICARE PART A & B MEDICARE PART A & B ONE CARE MEDICARE REPLACEMENT SHIVANI PENA [facility] MEDICARE PART A & B MEDICARE PART A & B ONE CARE MEDICARE REPLACEMENT SHIVANI PENA [id number] * Guarantor: Yamil Quarles Account Type Relation to Patient Date of Phone Billing Address Personal/Family Self [address] [place] [address] MEDICARE PART A & B [facility] ONE CARE MEDICARE REPLACEMENT [facility] [address] [place] [address] MEDICARE PART A & B [facility] ONE CARE MEDICARE REPLACEMENT Care Teams Mounting Inspector Relationship Specialty Start Date End Date Marcel Cruz MD [address] [place] [phone] PCP - General Internal Medicine 09/16/23 Additional Source Comments The information contained in this document represents components of the legal health record. It is not the complete legal health record.[facility]
--- OUTSIDE RECORDS SUMMARY | 2025-02-09 10:45 | XMS_ITS | Patient Health Record ---
Author Organization [facility] Address [address], [place] [id number] Care Team Providers Care Welfare Eligibility Worker Name Role Phone Lupe Perry Unavailable [phone] Allergies Allergen (clinical drug ingredient) Drug/Non Drug [...] Notes Problem Obesity due to excess calories (625189157) Other obesity due to excess calories (E66.09) Active confirmed Problem Recurrent major depression (78650846) Major depressive disorder, recurrent, unspecified (F33.9) Active confirmed Problem Generalized anxiety disorder (85960862) Generalized anxiety disorder (F41.1) Active confirmed Problem Chronic intractable migraine without aura (232412116147932) Chronic migraine without aura, intractable, without status migrainosus (G43.719) Active confirmed Problem Insomnia (671556083) Insomnia, unspecified (G47.00) Active confirmed Problem DOBSON - Nonalcoholic steatohepatitis (974112465) Nonalcoholic steatohepatitis (DOBSON) (K75.81) Active confirmed Problem Sciatica (74439154) Lumbago with sciatica, unspecified side (M54.40) Active confirmed Plan Of Treatment No Information Insurance Providers Payer Name Payer Address Payer Phone Subscriber Number Group Number Insured Name Patient Relationship to Insured Coverage Start Date Coverage End Date GIULIANO ROSENDO [address] [place] [phone] [id number] Yamil Quarles Self - patient is the insured Medical (General) History Medical History History ICD Code anxiety insomnia migraines cluster headaches depression situational AFib s/p cardioversion Surgical History Surgery Date(Month/Year) appendectomy 2016 wisdom teeth 2001 Botox injection for migraine- 2nd set sc heduled for 09/201707/15/2017 Hospitalization History Reason Date(Month/Year) [facility] - extreme depression / anxiety January 2016 AFib - cardioversion 2015 AFib - cardioversion 2011 [facility] - sync[place]; w/u WNL 2015
== END 2025-02-09 11:42 | disposition home or self-care (01) ==
LOC: HO.HUSH 09:59
PROVIDERS: PCP Internal Medicine; Visit Provider Urology
DX: Q54.9 Hypospadias, unspecified (principal); E29.1 Testicular hypofunction
CPT/HCPCS: 99214

== ENCOUNTER 2025-02-23 11:38 | Outpatient (AMB) | payer OTHER, SELFPAY ==
--- NOTE | 2025-02-23 11:53 | MHC.OFFVIS ---
Intake Visit Reasons: INJ- left shoulder last inj 11/19/24 Intake Note: Yamil is a 39 year old male who presents today for a left shoulder injection, last injection on 11/19/24. Patient reports last injection helped and lasted about 5-7 weeks. He complains of pain returning and now radiating to the anterior aspect and around his shoulder towards his back. Complaints of limited ROM. He attended therapu 2 of the 3 weeks, due to a surgical procedure he recently underwent. He felt as if physical therapy was not helping with his shoulder. Difficulty with driving due to discomfort from the seat belt strap on his shoulder. Allergies metoclopramide (From REGLAN) Allergy (Intermediate, Verified 02/23/25 12:04) AGITATION prochlorperazine (From COMPAZINE) Allergy (Intermediate, Verified 02/23/25 12:04) AGITATION diphenhydramine (From BENADRYL) Adverse Reaction (Intermediate, Verified 02/23/25 12:04) AGITATION HPI HPI INJ- left shoulder last inj 11/19/24: Details: 39-year-old gentleman returns to the office today for a follow-up left shoulder pain status post injection on 11/19/2024. He states the injection was helpful for a couple of weeks but once it wore off he developed worsening pain with overhead reaching and lifting activities. He has completed physical therapy without significant relief. [facility] Medical History (Updated 02/28/25 @ 08:59 by Trey Cardenas PA-C) Thiamin deficiency Vitamin D deficiency Left shoulder pain Decreased range of motion of shoulder Spondylosis Anemia Primary hypertension Obstructive sleep apnea Class 2 severe obesity with body mass index (BMI) of 35 to 39.9 with serious comorbidity Kidney stone Migraine Afib Depression Anxiety GERD (gastroesophageal reflux disease) Pneumonia Surgical History History of cystoscopy History of wisdom tooth extraction Hx of cholecystectomy Hx of appendectomy Family History Other Diabetes HTN (hypertension) Substance use disorder Social History Housing: Apartment Alcohol intake: current Alcohol intake frequency: holidays/special occasions only Patient Tobacco Use Status: Never used Tobacco e-Cigarette/Vaping Use: Never Used Second Hand Smoke Exposure: No Substance Use Type: Marijuana Advance Directives Date on File: 05/01/20 service: No Current occupational status: disabled Cognitive needs: No Hearing needs: No Vision needs: Yes (glasses) Review of Systems Const All systems reviewed & are unremarkable except as noted in HPI and below Physical Exam Const General: cooperative and no acute distress Orientation/consciousness: patient oriented x3 Resp Effort & Inspection: normal respiratory effort and able to speak in complete sentences Cardio Peripheral pulses: Peripheral pulses 2+ throughout Neuro General: patient oriented x3 Extrem Other: Left shoulder normal to inspection. He has full range of motion in all planes. He has 5/5 rotator cuff strength. Positive Canandaigua's. Tenderness over the proximal biceps tendon. Tenderness over the AC joint. Neurovascularly intact. Assessment & Plan Assessment & Plan (1) Left supraspinatus tendonitis: Code(s): M75.92 - Shoulder lesion, unspecified, left shoulder Category: Medical (2) Left rotator cuff tear: Code(s): M75.102 - Unspecified rotator cuff tear or rupture of left shoulder, not specified as traumatic Category: Medical Plan We discussed options which included continued conservative management versus surgical intervention. The patient has failed conservative measures including physical therapy and steroid injections along with modification of activity. The patient does understand nonsurgical intervention would result in significantly limited function. Given the patient's activity level and desire to continue working, it would be recommended to pursue surgical intervention. We discussed the procedure in detail along with the risks benefits and alternatives. Risks including but not limited to infection, injury to surrounding nerves and tissue and bone, small and large vessels, stiffness,need for further surgery, DVT/PE along with intraoperative complications including but not limited to . We discussed postoperative recovery which includes The patient does express understanding we would like to proceed with left shoulder rotator cuff repair with Dr. Patel. The patient will be booked accordingly. Coding Level of Care Code Est Pt Level 4 (31066) Complex EM visit Add On G2211 Diagnoses Left supraspinatus tendonitis M75.92 Left rotator cuff tear M75.102
--- OUTSIDE RECORDS SUMMARY | 2025-02-23 12:36 | XMS_ITS | Patient Health Record ---
Author Organization [facility] Address [address] [place], [place] [id number] Care Team Providers Care Scoring Machine Operator Name Role Phone Lupe Perry Unavailable [phone] Allergies Allergen (clinical drug ingredient) Drug/Non Drug [...] Notes Problem Obesity due to excess calories (303259982) Other obesity due to excess calories (E66.09) Active confirmed Problem Recurrent major depression (11913967) Major depressive disorder, recurrent, unspecified (F33.9) Active confirmed Problem Generalized anxiety disorder (89551836) Generalized anxiety disorder (F41.1) Active confirmed Problem Chronic intractable migraine without aura (553344616264273) Chronic migraine without aura, intractable, without status migrainosus (G43.719) Active confirmed Problem Insomnia (841794476) Insomnia, unspecified (G47.00) Active confirmed Problem DOBSON - Nonalcoholic steatohepatitis (837742669) Nonalcoholic steatohepatitis (DOBSON) (K75.81) Active confirmed Problem Sciatica (23334272) Lumbago with sciatica, unspecified side (M54.40) Active confirmed Plan Of Treatment No Information Insurance Providers Payer Name Payer Address Payer Phone Subscriber Number Group Number Insured Name Patient Relationship to Insured Coverage Start Date Coverage End Date GIULIANO ROSNEDO [address] [place] [phone] [id number] Yamil Quarles Self - patient is the insured Medical (General) History Medical History History ICD Code anxiety insomnia migraines cluster headaches depression situational AFib s/p cardioversion Surgical History Surgery Date(Month/Year) appendectomy 2016 wisdom teeth 2001 Botox injection for migraine- 2nd set sc heduled for 09/201707/15/2017 Hospitalization History Reason Date(Month/Year) [facility] - extreme depression / anxiety January 2016 AFib - cardioversion 2015 AFib - cardioversion 2011 [place] - syncope; w/u WNL 2015
--- OUTSIDE RECORDS SUMMARY | 2025-02-23 12:36 | XMS_ITS | Clinical Summary ---
Demographics Address [address] [place] [address] Mobile Phone Home Phone Email Address Preferred Language Zimbabwean Marital Status /Civil Union Zoroastrian Affiliation Unknown Race White Ethnic Group Not or Lati no Author Organization [facility] Address [address] [address] Phone Support Name Relationship Address Phone Dyana Willson Personal Relationship [address] [place] [address] Care Team Providers Care Freight Associate Name Role Phone Marcel Cruz MD Primary [...] day 90 capsule 4 4 Active rizatriptan (MAXALT-MORTGAGE ORIGINATOR) 10 MG disintegrating tablet TAKE 1 TABLET [...] EDT) SODIUM 139 135 - 145 mmol/L [facility] DEPARTMENT OF PATHOLOGY POTASSIUM 4.0 3.4 - 5.0 mmol/L [facility] DEPARTMENT OF PATHOLOGY CHLORIDE 100 98 - 108 mmol/L [facility] DEPARTMENT OF PATHOLOGY CO2 28 23 - 32 mmol/L [facility] DEPARTMENT OF PATHOLOGY BUN 10 8 - 25 mg/dL [facility] DEPARTMENT OF PATHOLOGY CREATININE 0.84 0.60 - 1.50 mg/dL [facility] DEPARTMENT OF PATHOLOGY GLUCOSE 96 70 - 110 mg/dL [facility] DEPARTMENT OF PATHOLOGY CALCIUM 9.0 8.5 - 10.5 mg/dL [facility] DEPARTMENT OF PATHOLOGY EGFR >60 mL/min/1.7 3m2 [facility] DEPARTMENT OF PATHOLOGY Comment:Abnormal if <60 mL/m in/1.73m2. If patient is -Lao, multiply the result by 1.21. ANION GAP 11 3 - 17 mmol/L [facility] DEPARTMENT OF PATHOLOGY Blood 01/31/2016 2:14 AM EDT 01/31/2016 2:27 AM EDT us Val Solano PA-C LAB BLOOD ORDERABLES Final Result [facility] DEPARTMENT OF PATHOLOGY [address] [place] [phone] from Last 3 Months or Most Recently Relevant to Health Maintenance Insurance [address] [place] [id number] MEDICARE PART A & B Member Subscriber Plan / Payer (Ef fective 2020-Present) Name:Yamil Quarles Member ID:[id number] Relation to Subscriber:Self Name:Yamil Quarles Subscriber ID:[id number] Payer ID:[id number] Group ID:Not on file Type:Medicare Address: [facility] [employer] [facility] [address] [place] [address] [facility] ONE CARE MEDICARE REPLACEMENT MEDICARE PART A & B MEDICARE REPLACEMENT MEDICARE PART A & B MEDICARE PART A & B MEDICARE PART A & B ONE CARE MEDICARE REPLACEMENT SHIVANI PENA [facility] MEDICARE PART A & B MEDICARE PART A & B ONE CARE MEDICARE REPLACEMENT SHIVANI PENA [id number] * Guarantor: Yamil Quarles Account Type Relation to Patient Date of Phone Billing Address Personal/Family Self [address] [place] [address] MEDICARE PART A & B [facility] ONE CARE [facility] [address] [place] [address] MEDICARE PART A & B [facility] ONE CARE MEDICARE REPLACEMENT Care Teams Freight Associate Relationship Specialty Start Date End Date Marcel Cruz MD [address] [place] [phone] PCP - General Internal Medicine 09/16/23 Additional Source Comments The information contained in this document represents components of the legal health record. It is not the complete legal health record.[facility]
== END 2025-02-23 13:32 | disposition home or self-care (01) ==
LOC: HO.HOS 11:39
PROVIDERS: PCP Internal Medicine; Visit Provider Physician Assistant
DX: M75.92 Shoulder lesion, unspecified, left shoulder (principal); M75.102 Unspecified rotator cuff tear or rupture of left shoulder, not specified as traumatic
CPT/HCPCS: 99214; G2211

== ENCOUNTER → 2025-02-23 11:38 | Outpatient (BNVA) | payer OTHER, SELFPAY | PROVIDERS: PCP Internal Medicine; Visit Provider Physician Assistant | DX: M25.512 Pain in left shoulder (principal); M75.92 Shoulder lesion, unspecified, left shoulder; M75.102 Unspecified rotator cuff tear or rupture of left shoulder, not specified as traumatic | CPT/HCPCS: 99212 ==

== ENCOUNTER 2025-03-15 14:46 | Outpatient (AMB) | payer OTHER, SELFPAY ==
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
[2025-03-15 14:57] VITALS: BP 168/102; PULSE 102; O2SAT 100; BMI 33.3
[2025-03-15 14:58] VITALS: BP 167/66
--- OUTSIDE RECORDS SUMMARY | 2025-03-15 15:59 | XMS_ITS | Encounter Summary ---
Demographics Address [address] [place] [address] Mobile Phone Home Phone Email Address Preferred Language Ukrainian Marital Status /Civil Union Rastafarian Affiliation Unknown Race White Ethnic Group Not or Lati no Author Organization [facility] Address [address] [place] [address] Phone Support Name Relationship Address Phone Dyana Willson Personal Relationship [address] [place] [address] Care Team Providers Care Maintenance Groundskeeper Name Role Phone Unknown, Unknown Primary Care Provider Marcel Suarez MD Primary Care Provid er Encounter Details Date Type Department Care Team (Late st Contact Info) Description 02/21/2018 Procedure Pass [facility] [place], [address], [address], [address] [place] [address] Social History Tobacco Use Types Packs/Day Years Used Date Smoking Tobacco: Never Alcohol Use Standard Drinks/Week Comments No 0 (1 standard drink = 0.6 oz pur e alcohol) 0CCASSIONALLY Sex and Gender Information Value Date Recorded Sex Assigned at Male 09/16/2023 2:58 PM EST Legal Sex Male 9:53 PM EDT Gender Identity Male 09/16/2023 2:58 PM EST Sexual Orientation Straight 09/16/2023 2: 58 PM EST documented as of this encounter Plan of Treatment Not on file documented as of this encounter Visit Diagnoses Not on filedocumented in this encounter Care Teams Maintenance Groundskeeper Relationship Specialty Start Date End Date Unknown, Unknown, MD PCP - General 02/21/18 09/15/23 Marcel Cruz MD [address] [place] [address] PCP - General Internal Medicine 09/16/23 documented as of this encounter Additional Source Comments The information contained in this document represents components of the legal health record. It is not the complete legal health record.[facility]
--- OUTSIDE RECORDS SUMMARY | 2025-03-15 15:59 | XMS_ITS | Clinical Summary ---
Demographics Address [address] [place] [address] Mobile Phone Home Phone Email Address Preferred Language Faroese Marital Status /Civil Union Amish Affiliation Unknown Race White Ethnic Group Not or Lati no Author Organization [facility] Address [address] [address] Phone Support Name Relationship Address Phone Dyana Willson Personal Relationship [address] [place] [address] Care Team Providers Care Services Executive Name Role Phone Marcel Cruz MD Primary [...] day 90 capsule 4 4 Active rizatriptan (MAXALT-OVERNIGHT CAREGIVER) 10 MG disintegrating tablet TAKE 1 TABLET [...] season) 2024 11/17/2020 DEPRESSION SCREENING 10/13/2024 10/14/2023 INFLUENZA VACCINE (#1) 2025 HEPATITIS A VACCINES Aged Out No long [...] EDT) SODIUM 139 135 - 145 mmol/L [facility] DEPARTMENT OF PATHOLOGY POTASSIUM 4.0 3.4 - 5.0 mmol/L [facility] DEPARTMENT OF PATHOLOGY CHLORIDE 100 98 - 108 mmol/L [facility] DEPARTMENT OF PATHOLOGY CO2 28 23 - 32 mmol/L [facility] DEPARTMENT OF PATHOLOGY BUN 10 8 - 25 mg/dL [facility] DEPARTMENT OF PATHOLOGY CREATININE 0.84 0.60 - 1.50 mg/dL [facility] DEPARTMENT OF PATHOLOGY GLUCOSE 96 70 - 110 mg/dL [facility] DEPARTMENT OF PATHOLOGY CALCIUM 9.0 8.5 - 10.5 mg/dL [facility] DEPARTMENT OF PATHOLOGY EGFR >60 mL/min/1.7 3m2 [facility] DEPARTMENT OF PATHOLOGY Comment:Abnormal if <60 mL/m in/1.73m2. If patient is -Dominican, multiply the result by 1.21. ANION GAP 11 3 - 17 mmol/L [facility] DEPARTMENT OF PATHOLOGY Blood 01/31/2016 2:14 AM EDT 01/31/2016 2:27 AM EDT us Val Solano PA-C LAB BLOOD ORDERABLES Final Result [facility] DEPARTMENT OF PATHOLOGY [address] [place] [address] from Last 3 Months or Most Recently Relevant to Health Maintenance Insurance [address] [place] [address] [place] [id number] [facility] ONE CARE MEDICARE REPLACEMENT MEDICARE PART A & B ONE [facility] MEDICARE REPLACEMENT MEDICARE PART A & B * Guarantor: Yamil Quarles Account Type Relation to Patient Date of Phone Billing Address Personal/Family Self 1985 [address] [place] [address] MEDICARE PART A & B * Guarantor: Yamil Quarles Account Type Relation to Patient Date of Phone Billing Address Personal/Family Self 1985 [address] [place], [place] MEDICARE PART A & B ONE CARE MEDICARE REPLACEMENT * Guarantor: Yamil Quarles Account Type Relation to Patient Date of Phone Billing Address Personal/Family Self [address] [place] [address] MEDICARE PART A & B MEDICARE PART A & B Member Subscriber Plan / Payer ( fective 2020-Present) Name:Margiesandrita Yamil Member ID:[id number] Relation to Subscriber:Self Name:Yamil Quarles Subscriber ID:[id number] Payer ID:[id number] Group ID:Not on file Type:Medicare Address: [facility] [employer] [facility] [address] [place] [address] ONE CARE MEDICARE REPLACEMENT SHIVANI PENA [id number] MEDICARE PART A & B [facility] ONE CARE MEDICARE REPLACEMENT [address] [address] MEDICARE PART A & B [facility] ONE CARE MEDICARE REPLACEMENT Care Teams Services Executive Relationship Specialty Start Date End Date Marcel Cruz MD [address] [place] [address] [address] PCP - General Internal Medicine 09/16/23 Additional Source Comments The information contained in this document represents components of the legal health record. It is not the complete legal health record.[facility]
--- OUTSIDE RECORDS SUMMARY | 2025-03-15 15:59 | XMS_ITS | Encounter Summary ---
Author Organization [facility] Address [address] [place] [address] Phone Care Team Providers Care Calender Tender Name Role Phone Pcp, Unknown Primary Care Provider Unavailabl e Unknown, Unknown MD Primary Care Provider Marcel Suarez MD Primary Care Provid er Encounter Details Date Type Department Care Team (Latest Contact Info) Description 02/01/2016 Ancillary Orders [facility] - [address] [address] Oswaldo Reilly PA-C [address] [place] [phone] [email or web address] Syncope, unspecified (Primary Dx) Social History Tobacco Use Types Packs/Day Years Used Date Smoking Tobacco: Never Assessed Alcohol Use Standard Drinks/Week Comments No 0 (1 standard drink = 0.6 oz pur e alcohol) Sex and Gender Information Value Date Recorded Sex Assigned at Male 09/16/2023 2:58 PM EST Legal Sex Male 9:53 PM EDT Gender Identity Male 09/16/2023 2:58 PM EST Sexual Orientation Straight 09/16/2023 2: 58 PM EST documented as of this encounter Plan of Treatment Not on file documented as of this encounter Visit Diagnoses Diagnosis Syncope, unspecified- Primary documented in this encounter Care Teams Calender Tender Relationship Specialty Start Date End Date Pcp, Unknown PCP - General 01/12/16 02/20/18 Unknown, Unknown, PCP - General 02/21/18 09/15/23 Marcel Cruz MD [address] [place] [address] PCP - General Internal Medicine 09/16/23 documented as of this encounter Additional Source Comments The information contained in this document represents components of the legal health record. It is not the complete legal health record.[facility]
== END 2025-03-15 15:15 | disposition home or self-care (01) ==
LOC: HO.PMC 14:47
PROVIDERS: PCP Internal Medicine; Visit Provider Nurse Practitioner Family
DX: M25.512 Pain in left shoulder (principal); M75.102 Unspecified rotator cuff tear or rupture of left shoulder, not specified as traumatic
CPT/HCPCS: 99214; G2211

== ENCOUNTER → 2025-03-15 14:46 | Outpatient (BNVA) | payer OTHER, SELFPAY | PROVIDERS: PCP Internal Medicine; Visit Provider Nurse Practitioner Family | DX: M25.512 Pain in left shoulder (principal); M75.102 Unspecified rotator cuff tear or rupture of left shoulder, not specified as traumatic | CPT/HCPCS: 99212 ==

== ENCOUNTER → 2025-03-23 13:04 | Outpatient (BNV) | payer OTHER, SELFPAY | PROVIDERS: PCP Internal Medicine; Visit Provider Internal Medicine Cardiovascular Disease | DX: Z01.810 Encounter for preprocedural cardiovascular examination (principal) | CPT/HCPCS: 93010 ==

== ENCOUNTER 2025-03-28 07:22 | Outpatient (REF) | payer OTHER, SELFPAY ==
--- OUTSIDE RECORDS SUMMARY | 2025-03-28 07:25 | XMS_ITS | Clinical Summary ---
Demographics Address [address] [place], [place] [address] Home Phone Work Phone Mobile Phone Home Phone Preferred Language en Marital Status Single Gnosticist Affiliation Unknown Race White Ethnic Group Not or Lati no Author Organization [facility] ity Address [address] [place] [address] Care Team Providers Care Internet Ecommerce Specialist Name Role Phone Lupe Perry DO Primary Care Provider [phone] Social History Tobacco Use Types Packs/Day Years [...] age to complete this topic Care Teams Internet Ecommerce Specialist Relationship Specialty Start Date End Date Lupe Perry DO [address] [place] [address] PCP - General Family Medicine 10/10/16
--- OUTSIDE RECORDS SUMMARY | 2025-03-28 07:25 | XMS_ITS | Encounter Summary ---
Author Organization [facility] Address [address] [place] [address] Phone Care Team Providers Care Video Game Script Writer Name Role Phone Pcp, Unknown Primary Care Provider Unavailabl e Unknown, Unknown MD Primary Care Provider Marcel Suarez MD Primary Care Provid er Encounter Details Date Type Department Care Team (Latest Contact Info) Description 02/01/2016 Ancillary Orders [facility] Orthopedics - [address] [address] Oswaldo Reilly PA-C [address] [place] [phone] [email or web address] Syncope, unspecified (Primary Dx) Social History [...] Primary documented in this encounter Care Teams Video Game Script Writer Relationship Specialty Start Date End Date Pcp, Unknown PCP - General 01/12/16 02/20/18 Unknown, Unknown, PCP - General 02/21/18 09/15/23 Marcel Cruz MD [address] [place] [address] PCP - General Internal Medicine 09/16/23 documented as of this encounter Additional Source Comments The information contained in this document represents components of the legal health record. It is not the complete legal health record.[facility]
--- OUTSIDE RECORDS SUMMARY | 2025-03-28 07:25 | XMS_ITS | Patient Health Record ---
Author Organization [facility] Address [address] [place], [place] [address] Care Team Providers Care Ceramic Saw Tender Name Role Phone Lupe Perry Unavailable [phone] Allergies Allergen (clinical drug ingredient) Drug/Non Drug [...] Notes Problem Obesity due to excess calories (039195601) Other obesity due to excess calories (E66.09) Active confirmed Problem Recurrent major depression (07742840) Major depressive disorder, recurrent, unspecified (F33.9) Active confirmed Problem Generalized anxiety disorder (19247183) Generalized anxiety disorder (F41.1) Active confirmed Problem Chronic intractable migraine without aura (411304767379068) Chronic migraine without aura, intractable, without status migrainosus (G43.719) Active confirmed Problem Insomnia (139324499) Insomnia, unspecified (G47.00) Active confirmed Problem DOBSON - Nonalcoholic steatohepatitis (310866470) Nonalcoholic steatohepatitis (DOBSON) (K75.81) Active confirmed Problem Sciatica (64446222) Lumbago with sciatica, unspecified side (M54.40) Active confirmed Plan Of Treatment No Information Insurance Providers Payer Name Payer Address Payer Phone Subscriber Number Group Number Insured Name Patient Relationship to Insured Coverage Start Date Coverage End Date [address] [place] [address] [id number] Yamil Quarles Self - patient is the insured Medical (General) History Medical History History ICD Code anxiety insomnia migraines cluster headaches depression situational AFib s/p cardioversion Surgical History Surgery Date(Month/Year) appendectomy 2016 wisdom teeth 2001 Botox injection for migraine- 2nd set sc heduled for 09/201707/15/2017 Hospitalization History Reason Date(Month/Year) [facility] - extreme depression / anxiety January 2016 AFib - cardioversion 2015 AFib - cardioversion 2011 [facility] - syncope; w/u WNL 2015
--- OUTSIDE RECORDS SUMMARY | 2025-03-28 07:25 | XMS_ITS | Encounter Summary ---
Demographics Address [address] [place] [address] Mobile Phone Home Phone Email Address Preferred Language Moroccan Marital Status /Civil Union Evangelical Affiliation Unknown Race White Ethnic Group Not or Lati no Author Organization [facility] Address [address] [place] [address] Phone Support Name Relationship Address Phone Dyana Willson Personal Relationship [address] [place] [address] Care Team Providers Care Network Security Architect Name Role Phone Unknown, Unknown Primary Care Provider Marcel Suarez MD Primary Care Provid er Encounter Details Date Type Department Care Team (Late st Contact Info) Description 02/21/2018 Procedure Pass [facility] [place] [address] [facility] Floor, [address] [place] [address] Social History Tobacco Use Types Packs/Day Years [...] on filedocumented in this encounter Care Teams Network Security Architect Relationship Specialty Start Date End Date Unknown, Unknown, PCP - General 02/21/18 09/15/23 Marcel Cruz MD [address] [place] [address] PCP - General Internal Medicine 09/16/23 documented as of this encounter Additional Source Comments The information contained in this document represents components of the legal health record. It is not the complete legal health record.[facility]
--- OUTSIDE RECORDS SUMMARY | 2025-03-28 07:25 | XMS_ITS | Clinical Summary ---
Demographics Address [address] [place] [address] Mobile Phone Home Phone Email Address Preferred Language Slovak Marital Status /Civil Union Denominational Affiliation Unknown Race White Ethnic Group Not or Lati no Author Organization [facility] Address [address] [address] Phone Support Name Relationship Address Phone Dyana Willson Personal Relationship [address] [place] [address] Care Team Providers Care Special Programs Director Name Role Phone Marcel Cruz MD Primary [...] day 90 capsule 4 4 Active rizatriptan (MAXALT-CAMP TENDER) 10 MG disintegrating tablet TAKE 1 TABLET [...] EDT) SODIUM 139 135 - 145 mmol/L [facility] DEPARTMENT OF PATHOLOGY POTASSIUM 4.0 3.4 - 5.0 mmol/L [facility] DEPARTMENT OF PATHOLOGY CHLORIDE 100 98 - 108 mmol/L [facility] DEPARTMENT OF PATHOLOGY CO2 28 23 - 32 mmol/L [facility] DEPARTMENT OF PATHOLOGY BUN 10 8 - 25 mg/dL [facility] DEPARTMENT OF PATHOLOGY CREATININE 0.84 0.60 - 1.50 mg/dL [facility] DEPARTMENT OF PATHOLOGY GLUCOSE 96 70 - 110 mg/dL [facility] DEPARTMENT OF PATHOLOGY CALCIUM 9.0 8.5 - 10.5 mg/dL [facility] DEPARTMENT OF PATHOLOGY EGFR >60 mL/min/1.7 3m2 [facility] DEPARTMENT OF PATHOLOGY Comment:Abnormal if <60 mL/m in/1.73m2. If patient is -Russian, multiply the result by 1.21. ANION GAP 11 3 - 17 mmol/L [facility] DEPARTMENT OF PATHOLOGY Blood 01/31/2016 2:14 AM EDT 01/31/2016 2:27 AM EDT us Val Solano PA-C LAB BLOOD ORDERABLES Final Result [facility] DEPARTMENT OF PATHOLOGY [address] [place] [address] from Last 3 Months or Most Recently Relevant to Health Maintenance Insurance [address] [place] [address] MED[place] PART [place] [id number] [facility] ONE CARE MEDICARE REPLACEMENT MEDICARE PART A & B [facility] MEDIC[facility] REPLAC[facility] MEDICARE PART A & B * Guarantor: Yamil Quarles Account Type Relation to Patient Date of Phone Billing Address Personal/Family Self 1985 [address] [place] [address] MEDICARE PART A & B * Guarantor: Yamil Quarles Account Type Relation to Patient Date of Phone Billing Address Personal/Family Self 1985 [address] [place], [place] MEDICARE PART A & B ONE CARE MEDICARE REPLACEMENT * Guarantor: Yamil Quarles Account Type Relation to Patient Date of Phone Billing Address Personal/Family Self [address] [place] [address] MEDICARE PART A & B MEDICARE PART A & B ONE CARE MEDICARE REPLACEMENT SHIVANI PENA [id number] MEDICARE PART A & B [facility] ONE CARE MEDICARE REPLACEMENT [address], [place] [address] MEDICARE PART A & B [facility] ONE CARE MEDICARE REPLACEMENT Care Teams Special Programs Director Relationship Specialty Start Date End Date Marcel Cruz MD [address] [place] [address] [address] PCP - General Internal Medicine 09/16/23 Additional Source Comments The information contained in this document represents components of the legal health record. It is not the complete legal health record.[facility]
[2025-03-28 08:55] LABS: Anion Gap 12 (12-20); Blood Urea Nitrogen 6 mg/dL (9-16); Calcium 8.5 mg/dL (8.4-10.2); Carbon Dioxide 28 mmol/L (22-29); Chloride 106 mmol/L (96-108); Estimated Glomerular Filt Rate > 60; Magnesium 2.2 mg/dL (1.6-2.6); Potassium 3.1 mmol/L (3.3-5.1); Sodium 143 mmol/L (135-145)
== END 2025-03-28 07:23 | disposition home or self-care (01) ==
LOC: HO.LAB 07:22
PROVIDERS: Visit Provider Internal Medicine
DX: E87.6 Hypokalemia (principal)
CPT/HCPCS: 36415; 80048; 83735

== ENCOUNTER 2025-03-30 07:02 | Day surgery (SDC) | payer OTHER, SELFPAY ==
--- OUTSIDE RECORDS SUMMARY | 2025-03-17 12:32 | XMS_ITS | Patient Health Record ---
Author Organization [facility] Address [address] [place], [place] [address] Care Team Providers Care Visual C Developer Name Role Phone Lupe Perry Unavailable [phone] Allergies Allergen (clinical drug ingredient) Drug/Non Drug [...] Notes Problem Obesity due to excess calories (949327392) Other obesity due to excess calories (E66.09) Active confirmed Problem Recurrent major depression (09539061) Major depressive disorder, recurrent, unspecified (F33.9) Active confirmed Problem Generalized anxiety disorder (66298040) Generalized anxiety disorder (F41.1) Active confirmed Problem Chronic intractable migraine without aura (980058035165430) Chronic migraine without aura, intractable, without status migrainosus (G43.719) Active confirmed Problem Insomnia (441275055) Insomnia, unspecified (G47.00) Active confirmed Problem DOBSON - Nonalcoholic steatohepatitis (741768860) Nonalcoholic steatohepatitis (DOBSON) (K75.81) Active confirmed Problem Sciatica (92742200) Lumbago with sciatica, unspecified side (M54.40) Active confirmed Plan Of Treatment No Information Insurance Providers Payer Name Payer Address Payer Phone Subscriber Number Group Number Insured Name Patient Relationship to Insured Coverage Start Date Coverage End Date [id number] [place] [phone] [id number] Yamil Quarles Self - patient is the insured Medical (General) History Medical History History ICD Code anxiety insomnia migraines cluster headaches depression situational AFib s/p cardioversion Surgical History Surgery Date(Month/Year) appendectomy 2016 wisdom teeth 2001 Botox injection for migraine- 2nd set sc heduled for 09/201707/15/2017 Hospitalization History Reason Date(Month/Year) [facility] - extreme depression / anxiety January 2016 AFib - cardioversion 2015 AFib - cardioversion 2011 [facility] - syncope; w/u WNL 2015
--- OUTSIDE RECORDS SUMMARY | 2025-03-17 12:32 | XMS_ITS | Encounter Summary ---
Demographics Address [address] [place] [address] Mobile Phone Home Phone Email Address Preferred Language Albanian Marital Status /Civil Union Catholic Affiliation Unknown Race White Ethnic Group Not or Lati no Author Organization [facility] Address [address] [place] [address] Phone Support Name Relationship Address Phone Dyana Willson Personal Relationship [address] [place] [address] Care Team Providers Care Cell Plasterer Name Role Phone Unknown, Unknown Primary Care Provider Marcel Suarez MD Primary Care Provid er Encounter Details Date Type Department Care Team (Late st Contact Info) Description 02/21/2018 Procedure Pass [facility] [place], [address] [facility], 2nd [address], [address] [place] [address] Social History Tobacco Use Types Packs/Day Years [...] on filedocumented in this encounter Care Teams Cell Plasterer Relationship Specialty Start Date End Date Unknown, Unknown, MD PCP - General 02/21/18 09/15/23 Marcel Cruz MD [address] [place] [address] PCP - General Internal Medicine 09/16/23 documented as of this encounter Additional Source Comments The information contained in this document represents components of the legal health record. It is not the complete legal health record.[facility]
--- OUTSIDE RECORDS SUMMARY | 2025-03-17 12:32 | XMS_ITS | Clinical Summary ---
Demographics Address [address] [place] [address] Mobile Phone Home Phone Email Address Preferred Language Serbian Marital Status /Civil Union Synagogue Affiliation Unknown Race White Ethnic Group Not or Lati no Author Organization [facility] Address [address] [employer] [address] [address] Phone Support Name Relationship Address Phone Dyana Willson Personal Relationship [address] [place] [address] Care Team Providers Care Motorized Squad Captain Name Role Phone Marcel Cruz MD Primary [...] day 90 capsule 4 4 Active rizatriptan (MAXALT-DJANGO DEVELOPER) 10 MG disintegrating tablet TAKE 1 TABLET [...] EDT) SODIUM 139 135 - 145 mmol/L [facility] DEPARTMENT OF PATHOLOGY POTASSIUM 4.0 3.4 - 5.0 mmol/L [facility] DEPARTMENT OF PATHOLOGY CHLORIDE 100 98 - 108 mmol/L [facility] DEPARTMENT OF PATHOLOGY CO2 28 23 - 32 mmol/L [facility] DEPARTMENT OF PATHOLOGY BUN 10 8 - 25 mg/dL [facility] DEPARTMENT OF PATHOLOGY CREATININE 0.84 0.60 - 1.50 mg/dL [facility] DEPARTMENT OF PATHOLOGY GLUCOSE 96 70 - 110 mg/dL [facility] DEPARTMENT OF PATHOLOGY CALCIUM 9.0 8.5 - 10.5 mg/dL [facility] DEPARTMENT OF PATHOLOGY EGFR >60 mL/min/1.7 3m2 [facility] DEPARTMENT OF PATHOLOGY Comment:Abnormal if <60 mL/m in/1.73m2. If patient is -Panamanian, multiply the result by 1.21. ANION GAP 11 3 - 17 mmol/L [facility] DEPARTMENT OF PATHOLOGY Blood 01/31/2016 2:14 AM EDT 01/31/2016 2:27 AM EDT us Val Solano PA-C LAB BLOOD ORDERABLES Final Result [facility] DEPARTMENT OF PATHOLOGY [address] [place] [phone] from Last 3 Months or Most Recently Relevant to Health Maintenance [address] [place] [address] [place] [id number] [facility] ONE CARE MEDICARE REPLACEMENT MEDICARE PART A & B ONE [facility] MEDICARE REPLACEMENT MEDICARE PART A & B * Guarantor: Yamil Quarles Account Type Relation to Patient Date of Phone Billing Address Personal/Family Self 1985 [address] [place] [address] MEDICARE PART A & B * Guarantor: Yamil Quarles Account Type Relation to Patient Date of Phone Billing Address Personal/Family Self 1985 [address] [place], [place] MEDICARE PART A & B ONE CARE MEDICARE REPLACEMENT * Guarantor: Yamil Quarles Account Type Relation to Patient Date of Phone Billing Address Personal/Family Self [address] [place] [address] MEDICARE PART A & B MEDICARE PART A & B ONE CARE MEDICARE REPLACEMENT SHIVANI PENA [id number] MEDICARE PART A & B [facility] ONE CARE MEDICARE REPLACEMENT [address], [place] [address] MEDICARE PART A & B [facility] ONE CARE MEDICARE REPLACEMENT Care Teams Motorized Squad Captain Relationship Specialty Start Date End Date Marcel Cruz MD [address] [place] [address] [address] PCP - General Internal Medicine 09/16/23 Additional Source Comments The information contained in this document represents components of the legal health record. It is not the complete legal health record.[facility]
--- OUTSIDE RECORDS SUMMARY | 2025-03-17 12:32 | XMS_ITS | Clinical Summary ---
Demographics Address [address] [place], [place] [address] Home Phone Work Phone Mobile Phone Home Phone Preferred Language en Marital Status Single Presybeterian Affiliation Unknown Race White Ethnic Group Not or Lati no Author Organization [facility] ity Address [address] [place] [address] Care Team Providers Care Clinical Tech Name Role Phone Lupe Perry DO Primary Care Provider [phone] Social History Tobacco Use Types Packs/Day Years [...] of 3 - 19+ 3-dose series) 10/25/2002 Depression Screening 07/14/2024 COVID-19 Vaccine ( - 2023-2 5 season) 2025 Influenza Vaccine (#1) 2025 HIB Vaccines Aged Out No longer [...] 5 Years) and At-Risk Patients (6 to 49 Years) Aged Out No longer eligible b ased on patient's age to complete this topic RSV Immunization Patients Un yonathan 20 months Aged Out No longer eligible b ased on patient's age to complete this topic Varicella Vaccines Aged Out No longer eligible based on patient's age to complete this topic Care Teams Clinical Tech Relationship Specialty Start Date End Date Lupe Perry DO [address] [place] [phone] PCP - General Family Medicine 10/10/16
--- OUTSIDE RECORDS SUMMARY | 2025-03-17 12:32 | XMS_ITS | Encounter Summary ---
Author Organization [facility] Address [address] [place] [address] Phone Care Team Providers Care Glass Silverer Name Role Phone Pcp, Unknown Primary Care Provider Unavailabl e Unknown, Unknown MD Primary Care Provider Marcel Suarez MD Primary Care Provid er Encounter Details Date Type Department Care Team (Latest Contact Info) Description 02/01/2016 Ancillary Orders [facility] Orthopedics - [address] [address] Oswaldo Reilly PA-C [address] [place] [phone] [email or web address] Syncope, unspecified (Primary Dx) Social History [...] Primary documented in this encounter Care Teams Glass Silverer Relationship Specialty Start Date End Date Pcp, Unknown PCP - General 01/12/16 02/20/18 Unknown, Unknown, PCP - General 02/21/18 09/15/23 Marcel Cruz MD [address] [place] [phone] PCP - General Internal Medicine 09/16/23 documented as of this encounter Additional Source Comments The information contained in this document represents components of the legal health record. It is not the complete legal health record.[facility]
[2025-03-23 11:47] VITALS: BMI 33.2
--- NOTE | 2025-03-23 13:04 | ECG_ITS ---
Test Reason : preop Blood Pressure : */* mmHG Vent. Rate : 86 BPM Atrial Rate : 86 BPM P-R Int : 126 ms QRS Dur : 110 ms QT Int : 400 ms P-R-T Axes : 33 39 39 degrees QTcB Int : 478 ms Normal sinus rhythm Normal ECG When compared with ECG of 17-Jun-2024 00:13, Premature ventricular complexes are no longer Present T wave inversion no longer evident in Anterior leads Referred By: Danii Medina Electronically Signed By: LEVI MALDONADO MD
[2025-03-23 14:04] LABS: Hematocrit 41.1 % (42.0-52.0); Hemoglobin 14.1 g/dl (14.0-18.0); Mean Corpuscular HGB Conc 34.3 g/dl (31.0-36.0); Mean Corpuscular Hemoglobin 28.7 pg (27.0-33.0); Mean Corpuscular Volume 83.5 fL (80.0-98.0); NRBC Abs Auto 0.000 X10*3/uL (0.0-0.012); NRBC Pct Auto 0.0 /100WBC (0.0-0.2); Platelet Count 283 X10*3/uL (160-400); Red Blood Count 4.92 X10*6/uL (4.60-5.80); White Blood Count 6.9 X10*3/uL (4.8-10.8)
[2025-03-23 15:09] LABS: Anion Gap 11 (12-20); Blood Urea Nitrogen 6 mg/dL (9-16); Calcium 8.6 mg/dL (8.4-10.2); Carbon Dioxide 31 mmol/L (22-29); Chloride 104 mmol/L (96-108); Creatinine Clr Calc Pharmacy 150.6; Estimated Glomerular Filt Rate > 60; Potassium 2.7 mmol/L (3.3-5.1); Sodium 143 mmol/L (135-145)
--- NOTE | 2025-03-28 14:28 | HO.ANESPROP2 ---
Documented by User: Danii Medina NP 03/28/25 14:35 HPI - Anesthesia Eval Consult details Narrative: 39yo M for Left Arthroscopic Rotator Cuff Repair Pt unable to attend PAT, but obtained labs, EKG. Critical low K. Repleted through PCP, repeat K=3.1 03/28/25. Pt instructed to continue supplementation and will recheck K DOS. s/p cysto 01/2025 with GA-LMA 4 Hx afib: chart review shows PAF with vomiting/electrolyte shifts. Last 2020 in ER with med cardioversion. Documentation shows pt had been cardioverted previously as well. No anticoag/no antiarrhythmics. [facility] Active Problems Active Problems: All Active Problems (Updated 03/23/25 @ 11:25 by Coco Vance RN) Left rotator cuff tear (Acute) Hypogonadism in male (Acute) Hypospadias in male (Acute) Low libido (Acute) Left supraspinatus tendonitis (Acute) Cervical spondylosis (Acute) Muscle spasms of neck (Acute) Restless leg syndrome (Acute) Sleep difficulties (Acute) Snoring (Acute) Muscle spasms of lower extremity (Acute) Fatigue (Acute) Chondromalacia, left knee (Acute) MCL sprain of left knee (Acute) Chondromalacia, right knee (Acute) MCL sprain of right knee (Acute) Meniscus, medial, derangement (Acute) Elevated liver enzymes (Acute) Chest pain (Acute) Thiamin deficiency (Acute) Vitamin D deficiency (Acute) Kidney stone (Acute) Left shoulder pain (Acute) Decreased range of motion of shoulder (Acute) Spondylosis (Acute) Primary hypertension (Acute) Obstructive sleep apnea (Acute) Class 2 severe obesity with body mass index (BMI) of 35 to 39.9 with serious comorbidity (Acute) Hx of cholecystectomy (Acute) Hx of appendectomy (Acute) Pneumonia (Acute) Migraine (Acute) GERD (gastroesophageal reflux disease) (Acute) Depression (Acute) Anxiety (Acute) Afib (Acute) Past Medical History Medical History HTN (hypertension) Thiamin deficiency Vitamin D deficiency Left shoulder pain Decreased range of motion of shoulder Spondylosis Anemia Primary hypertension Obstructive sleep apnea Class 2 severe obesity with body mass index (BMI) of 35 to 39.9 with serious comorbidity Kidney stone Migraine Afib Depression Anxiety GERD (gastroesophageal reflux disease) Pneumonia Family History Family History Other Diabetes HTN (hypertension) Substance use disorder Family history of problems with anesthesia: No Surgical History Surgical History History of cystoscopy History of wisdom tooth extraction Hx of cholecystectomy Hx of appendectomy History of Problems with Anesthesia: No Social History Social History Housing: Apartment Are you a primary home care giver to a significant other at home: No Do you presently have visiting nurse or other home services: No Alcohol intake: current Alcohol intake frequency: holidays/special occasions only Patient Tobacco Use Status: Never used Tobacco e-Cigarette/Vaping Use: Never Used Second Hand Smoke Exposure: No Use of substances other than those prescribed or required for medical reasons: Yes Substance Use Type: Marijuana Substance Use Type Other:: edibles Substance Use Frequency: Weekly Have you been hit, kicked, punched, or otherwise hurt by someone within the past year? If so, by whom?: No Are you DNR?: No Advance Directives: No Advance Directives Information Provided: Yes Advance Directives on File: No Advance Directives Date on File: 05/01/20 Poor oral hygiene: Yes service: No Current occupational status: disabled Cognitive needs: No Hearing needs: No Vision needs: Yes (glasses) Meds Allergies Allergy/AdvReac Type Severity Reaction Status Date / Time metoclopramide (From REGLAN) Allergy Intermediate AGITATION Verified 03/15/25 14:58 prochlorperazine (From Allergy Intermediate AGITATION Verified 03/15/25 14:58 COMPAZINE) diphenhydramine (From AdvReac Intermediate AGITATION Verified 03/15/25 14:58 BENADRYL) Home Medications ?Medication ?Instructions ?Recorded ?Confirmed ?Last Taken ?Type bupropion HCl 300 mg 24 hr tablet, 1 tab PO QAM 10/19/21 03/23/25 01/27/25 History extended release clonazepam 1 mg tablet 1 tab PO BEDTIME PRN Anxiety 10/19/21 03/23/25 Unknown History rizatriptan 10 mg disintegrating 10 mg PO DAILY PRN Headache 10/21/23 03/23/25 Unknown History tablet topiramate 25 mg tablet 25 mg PO BEDTIME 11/27/23 03/23/25 Unknown History trazodone 100 mg tablet 150 mg PO BEDTIME 09/23/24 03/23/25 Unknown History gabapentin 300 mg capsule 300 mg PO BID 11/19/24 03/23/25 Unknown History omeprazole 20 mg capsule,delayed 20 mg PO BEDTIME 03/23/25 03/23/25 Unknown History release Exam Height,Weight and Vital Signs: Height 5 ft 9 in Weight 102.058 kg Pertinent Lab Results Pertinent Lab Results: Laboratory Tests 03/23/25 13:24 WBC 6.9 RBC 4.92 Hgb 14.1 Hct 41.1 L MCV 83.5 MCH 28.7 MCHC 34.3 RDW 14.0 Plt Count 283 MPV 8.0 L Absolute Nucleated RBC 0.000 Nucleated RBC % (auto) 0.0 Sodium 143 Potassium 2.7 L* Chloride 104 Carbon Dioxide 31 H Anion Gap 11 L BUN 6 L Creatinine 0.76 Estim Creat Clear Calc 150.6 Estimated GFR > 60 Random Glucose 100 Calcium 8.6 Laboratory Tests 03/28/25 07:36 Sodium 143 Potassium 3.1 L Chloride 106 Carbon Dioxide 28 BUN 6 L Creatinine 0.83 Narrative Narrative: EKG 03/2025 Vent. Rate : 86 BPM Atrial Rate : 86 BPM P-R Int : 126 ms QRS Dur : 110 ms QT Int : 400 ms P-R-T Axes : 33 39 39 degrees QTcB Int : 478 ms Normal sinus rhythm Normal ECG When compared with ECG of 17-Jun-2024 00:13, Premature ventricular complexes are no longer Present T wave inversion no longer evident in Anterior leads Assessment and Plan Assessment Anesthesia Assessment: Chart Reviewed Final Anesthetic Review Family History of Problems with Anesthesia: No History of Problems with Anesthesia: No Documented by User: Torri Kaur MD 03/30/25 07:53 PMFSH Past Medical History Medical History HTN (hypertension) Thiamin deficiency Vitamin D deficiency Left shoulder pain Decreased range of motion of shoulder Spondylosis Anemia Primary hypertension Obstructive sleep apnea Class 2 severe obesity with body mass index (BMI) of 35 to 39.9 with serious comorbidity Kidney stone Migraine Afib Depression Anxiety GERD (gastroesophageal reflux disease) Pneumonia Family History Family History Other Diabetes HTN (hypertension) Substance use disorder Surgical History Surgical History History of cystoscopy History of wisdom tooth extraction Hx of cholecystectomy Hx of appendectomy Social History Social History Housing: Apartment Are you a primary home care giver to a significant other at home: No Do you presently have visiting nurse or other home services: No Alcohol intake: current Alcohol intake frequency: holidays/special occasions only Patient Tobacco Use Status: Never used Tobacco e-Cigarette/Vaping Use: Never Used Second Hand Smoke Exposure: No Use of substances other than those prescribed or required for medical reasons: Yes Substance Use Type: Marijuana Substance Use Type Other:: edibles Substance Use Frequency: Weekly Have you been hit, kicked, punched, or otherwise hurt by someone within the past year? If so, by whom?: No Are you DNR?: No Advance Directives: No Advance Directives Information Provided: Yes Advance Directives on File: No Advance Directives Date on File: 05/01/20 Poor oral hygiene: Yes service: No Current occupational status: disabled Cognitive needs: No Hearing needs: No Vision needs: Yes (glasses) Meds Allergies Allergy/AdvReac Type Severity Reaction Status Date / Time metoclopramide (From REGLAN) Allergy Intermediate AGITATION Verified 03/15/25 14:58 prochlorperazine (From Allergy Intermediate AGITATION Verified 03/15/25 14:58 COMPAZINE) diphenhydramine (From AdvReac Intermediate AGITATION Verified 03/15/25 14:58 BENADRYL) Home Medications ?Medication ?Instructions ?Recorded ?Confirmed ?Last Taken ?Type bupropion HCl 300 mg 24 hr tablet, 1 tab PO QAM 10/19/21 03/23/25 01/27/25 History extended release clonazepam 1 mg tablet 1 tab PO BEDTIME PRN Anxiety 10/19/21 03/23/25 Unknown History rizatriptan 10 mg disintegrating 10 mg PO DAILY PRN Headache 10/21/23 03/23/25 Unknown History tablet topiramate 25 mg tablet 25 mg PO BEDTIME 11/27/23 03/23/25 Unknown History trazodone 100 mg tablet 150 mg PO BEDTIME 09/23/24 03/23/25 Unknown History gabapentin 300 mg capsule 300 mg PO BID 11/19/24 03/23/25 Unknown History omeprazole 20 mg capsule,delayed 20 mg PO BEDTIME 03/23/25 03/23/25 Unknown History release Exam Airway Mallampati Class: II TM Dist: <=3cm Neck ROM: Full Heart: rrr Lungs: cta Assessment and Plan Assessment Anesthesia Assessment: Anesthesia Plan Discussed Final Anesthetic Review NPO: Yes ASA Class: III Final Preanesthetic Review: No Changes in Pt Med Stat, Meds/Allgs Chart Reviewed, Consent Obtained/Reviewed and Anes Risks/Benef Reviewed Patient Risk: Intermediate Procedure Risk: Intermediate Anesthetic Plan Anesthetic Plan: GA, Regional Block and Agree w/ Assess. and Plan Disposition: Standard PACU
[2025-03-30] VITALS (7 sets, daily range): BP systolic 131–151; BP diastolic 78–98; PULSE 87–100; RESP 15–18; TEMP 36.1–37.2; O2SAT 95–100
--- NOTE | 2025-03-30 07:34 | MHC.SHP ---
Pre-Procedural Eval Section A - 24 Hr Update-Section A only Date of Service: 03/30/25 The patient is an INPATIENT: No Changes since office visit: No Cold of Flu in the past 2 weeks, No New Medical Problems, No Changes in Medication and No Patient answered all questions The patient has been examined within 24 hours of the surgical procedure. The History & Physical has been completed within 30 days and I have reviewed it.: Yes Section B - Complete if H&P > 30 days Chief Complaint: Complete rotator cuff tear or rupture of left Allergies: Allergies Allergy/AdvReac Type Severity Reaction Status Date / Time metoclopramide (From REGLAN) Allergy Intermediate AGITATION Verified 03/15/25 14:58 prochlorperazine (From Allergy Intermediate AGITATION Verified 03/15/25 14:58 COMPAZINE) diphenhydramine (From AdvReac Intermediate AGITATION Verified 03/15/25 14:58 BENADRYL) Plan I have reviewed the history and physical and performed a pertinent physical examination on my patient. No changes have occurred unless specified. Time Spent With Patient Time: Total time managing care of this patient today ____ minutes.
[2025-03-30 07:40] LABS: Anion Gap 11 (12-20); Carbon Dioxide 27 mmol/L (22-29); Chloride 107 mmol/L (96-108); Potassium 3.2 mmol/L (3.3-5.1); Sodium 142 mmol/L (135-145)
[2025-03-30] MEDS: Lactated Ringers 1,000 ML 100 ML IVCONT (07:48)
--- NOTE | 2025-03-30 11:59 | P.BOP_ITS ---
Brief Operative Note Date of Service: 03/30/25 Pre-op diagnosis: Left RTC tear Post-op diagnosis: same Procedure: Left RTC repair with SAD Implants: Yu and Nephew 4.75 double loaded helacoil x 2 with 5 Knotless Helacoil 5.0 x 2 Surgeon: Mitch Patel MD Anesthesia: GETA and regional Was an Can Closing Machine Operator used for this Procedure?: Yes Can Closing Machine Operator: Monika French Estimated blood loss (mL): 20 IV fluids (mL): 1,000 Pathology: none sent Condition: stable Disposition: PACU
--- NOTE | 2025-04-01 15:14 | W.PM.OPN ---
Operative Note Operative Note Date of Service: 03/30/25 Narrative: Date of Service: 03/30/25 Pre-op diagnosis: Left RTC tear Post-op diagnosis: same Procedure: Left RTC repair with SAD Implants: Yu and Nephew 4.75 double loaded helacoil x 2 with 5 Knotless Helacoil 5.0 x 2 Surgeon: Mitch Patel MD Anesthesia: GETA and regional Was an Tank Setter Helper used for this Procedure?: Yes Tank Setter Helper: Monika French Estimated blood loss (mL): 20 IV fluids (mL): 1,000 Pathology: none sent Condition: stable Disposition: PACU Procedure in detail: Patient was brought to the operating room and placed the the beach chair position. All bony prominences were well padded and the limb was prepped and draped in standard sterile fashion. A time out was called to identify proper site, proper procedure and proper surgeon. IV antibiotics per weight were administered. I began by making a posterolateral stab incision with a 15 blade. A blunt trochar was placed into the glenohumeral joint and I insufflated the joint with saline and a 30 degree arthroscope was placed. I established an outside- in anterior portal just distal to the biceps tendon. I then began my inspection of the glenohumeral joint. There was a minimal degenerative fraying of the biceps anchor and labrum. There was no SLAP tearing. There were minimal cartilage changes at the inferior glenoid without humeral head changes. There was a high grade undersurface tearing of the anterior suprspinatus . The subcapularis was intact. I debrided the the degenerative labrum gently. I then removed the trochar and entered the subacromial space. A direct lateral portal was then established and I performed a bursectomy. The cuff was then examined. There was a near full thickness tear of the supraspinatus. A spinal needle had been placed through the area of undersurface tearing when I was performing the examination of the glenohumeral joint and this corresponded to the high-grade partial-thickness tearing of the supraspinatus from the bursal side. I used a shaver to complete the tear. The tear was mobile. I placed two medial row double loaded anchors after using a tap just adjacent to the articular cartilage and then brought the suture limbs (4 of the suture tape) through the medial cuff. I then debrided the bare area down to bleeding bone and, using a cross bridge configuration, brought 2 limbs to each of two lateral 5.0 anchors. This re-approximated the cuff anatomy anatomically. A 5 mm subacromial decompression was performed over the anterior acromion using a an oval bur. Once I was satisfied with the repair final images were captured and I removed all instrumentation. Portals were closed with nylon. Patient was placed in an abduction sling, extubated and brought to the recovery room in stable condition. There were no known complications.
== END 2025-03-30 12:50 | disposition home or self-care (01) ==
LOC: HO.SSS 07:03
PROVIDERS: Nurse Practitioner; PCP Internal Medicine; Visit Provider Orthopaedic Surgery
PROC: (CPT 29827; principal; 2025-03-30 08:30)
DX: M75.122 Complete rotator cuff tear or rupture of left shoulder, not specified as traumatic (principal); M75.82 Other shoulder lesions, left shoulder; M19.012 Primary osteoarthritis, left shoulder; M25.512 Pain in left shoulder; M25.612 Stiffness of left shoulder, not elsewhere classified; I10 Essential (primary) hypertension; I48.91 Unspecified atrial fibrillation; D64.9 Anemia, unspecified; E55.9 Vitamin D deficiency, unspecified; E51.9 Thiamine deficiency, unspecified; G47.33 Obstructive sleep apnea (adult) (pediatric); E66.812 Obesity, class 2; G43.909 Migraine, unspecified, not intractable, without status migrainosus; F32.A Depression, unspecified; F41.9 Anxiety disorder, unspecified; Z79.899 Other long term (current) drug therapy; Z88.8 Allergy status to other drugs, medicaments and biological substances; Z90.49 Acquired absence of other specified parts of digestive tract
CPT/HCPCS: 29827; 29826; 36415; 80048; 80051; 85027; 93005; C1713; J0131; J0165; J0665; J0690; J1100; J2003; J2250; J2371; J2405; J2704; J3010

== ENCOUNTER → 2025-03-30 07:02 | Outpatient (BNV) | payer OTHER, SELFPAY | PROVIDERS: PCP Internal Medicine; Visit Provider Orthopaedic Surgery | DX: S46.012A Strain of muscle(s) and tendon(s) of the rotator cuff of left shoulder, initial encounter (principal) | CPT/HCPCS: 29827 ==

== ENCOUNTER 2025-04-05 13:09 | Outpatient (AMB) | payer OTHER, SELFPAY ==
--- NOTE | 2025-04-05 15:48 | A.OFFVIS_ITS ---
Intake Visit Reasons: PO LT RTC repair 03/30/25 NE Allergies metoclopramide (From REGLAN) Allergy (Intermediate, Verified 03/15/25 14:58) AGITATION prochlorperazine (From COMPAZINE) Allergy (Intermediate, Verified 03/15/25 14:58) AGITATION diphenhydramine (From BENADRYL) Adverse Reaction (Intermediate, Verified 03/15/25 14:58) AGITATION HPI HPI PO LT RTC repair 03/30/25 NE: Details: Mr. Quarles is a 39 year old male who presents to the office today s/p left shoulder rotator cuff repair with subacromial decompression on 03/30/[address] Patel. The patient reports that he has been having difficulty managing his pain. He contacted our office earlier this week and was instructed to increase his percocet dose to 5mg q 4-6hrs. This has been more helpful. He is wearing his sling appropriately. [facility] Medical History HTN (hypertension) Thiamin deficiency Vitamin D deficiency Left shoulder pain Decreased range of motion of shoulder Spondylosis Anemia Primary hypertension Obstructive sleep apnea Class 2 severe obesity with body mass index (BMI) of 35 to 39.9 with serious comorbidity Kidney stone Migraine Afib Depression Anxiety GERD (gastroesophageal reflux disease) Pneumonia Surgical History History of cystoscopy History of wisdom tooth extraction Hx of cholecystectomy Hx of appendectomy Family History Other Diabetes HTN (hypertension) Substance use disorder Social History Housing: Apartment Are you a primary career technology teacher to a significant other at home: No Do you presently have visiting nurse or other home services: No Alcohol intake: current Alcohol intake frequency: holidays/special occasions only Comment: COUNTS CORRECT Patient Tobacco Use Status: Never used Tobacco e-Cigarette/Vaping Use: Never Used Second Hand Smoke Exposure: No Substance Use Type: Marijuana Advance Directives Date on File: 05/01/20 service: No Current occupational status: disabled Cognitive needs: No Hearing needs: No Vision needs: Yes (glasses) Review of Systems Const All systems reviewed & are unremarkable except as noted in HPI and below Physical Exam Const General: cooperative, healthy appearing and no acute distress Resp Effort & Inspection: normal respiratory effort and able to speak in complete sentences Extrem Other: Left shoulder incision sites are clean dry and intact. Sutures intact. No surrounding erythema or drainage. No signs of infection. Forward flexion abduction to 45 degrees. External rotation to neutral. NVI. Psych Appearance: grossly normal Mental Status: mental status grossly normal Attitude: cooperative Assessment & Plan Assessment & Plan (1) Status post left rotator cuff repair: Code(s): Z98.890 - Other specified postprocedural states Category: Surgical Plan Mr. Quarles is a 39 year old male who presents to the office today s/p left shoulder rotator cuff repair with subacromial decompression on 03/30/[address] Patel. The patient reports that he has been having difficulty managing his pain. He contacted our office earlier this week and was instructed to increase his percocet dose to 5mg q 4-6hrs. This has been more helpful. He is wearing his sling appropriately. All the office today sutures are removed and Steri-Strips were applied. Patient was placed back into the abduction sling. He understands he should remain in the abduction sling for a total of 6 weeks. He can not drive for 6 weeks until out of the sling and off all pain medications. I did send a refill of oxycodone 10 mg p.o. q.4-6 hours PRN pain to the pharmacy. A physical therapy prescription has been placed while in the office today with instruction for the patient to reach out to physical therapy schedule an appointment within the next week. Patient understands if he is unable to get in with the next day he will contact our office and I am happy to reach out to physical therapy to assist with making an appointment. He will follow up in [address] Patel, sooner if needed. Orders: Orders PT Evaluation and Treatment 04/05/25 Z98.890 - Other specified postprocedural states Medications: Changed From oxycodone Partial Fill upon patient request. 10 mg (2 x 5 mg) PO Q4-6H 4 days PRN 24 tabs 0RF pain (scale score 4-6) To oxycodone Partial Fill upon patient request. 10 mg PO Q4-6H PRN 42 tabs 0RF pain (scale score 4-6) 7 days Coding Level of Care Code Global (35859) Diagnoses Status post left rotator cuff repair Z98.890
--- OUTSIDE RECORDS SUMMARY | 2025-04-05 16:11 | XMS_ITS | Patient Health Record ---
Author Organization [facility] Address [address], [place] [id number] Care Team Providers Care Scientific Software Engineer Name Role Phone Lupe Perry Unavailable [phone] Allergies Allergen (clinical drug ingredient) Drug/Non Drug [...] Notes Problem Obesity due to excess calories (211408588) Other obesity due to excess calories (E66.09) Active confirmed Problem Recurrent major depression (88567176) Major depressive disorder, recurrent, unspecified (F33.9) Active confirmed Problem Generalized anxiety disorder (23195682) Generalized anxiety disorder (F41.1) Active confirmed Problem Chronic intractable migraine without aura (085110354467117) Chronic migraine without aura, intractable, without status migrainosus (G43.719) Active confirmed Problem Insomnia (925982692) Insomnia, unspecified (G47.00) Active confirmed Problem DOBSON - Nonalcoholic steatohepatitis (172888088) Nonalcoholic steatohepatitis (DOBSON) (K75.81) Active confirmed Problem Sciatica (66505715) Lumbago with sciatica, unspecified side (M54.40) Active confirmed Plan Of Treatment No Information Insurance Providers Payer Name Payer Address Payer Phone Subscriber Number Group Number Insured Name Patient Relationship to Insured Coverage Start Date Coverage End Date GIULIANO ROSENDO [address] [place] [phone] [id number] Yamil Quarles Self - patient is the insured Medical (General) History Medical History History ICD Code anxiety insomnia migraines cluster headaches depression situational AFib s/p cardioversion Surgical History Surgery Date(Month/Year) appendectomy 2016 wisdom teeth 2001 Botox injection for migraine- 2nd set sc heduled for 09/201707/15/2017 Hospitalization History Reason Date(Month/Year) [facility] - extreme depression / anxiety January 2016 AFib - cardioversion 2015 AFib - cardioversion 2011 [facility] - syncope; w/u WNL 2015
--- OUTSIDE RECORDS SUMMARY | 2025-04-05 16:11 | XMS_ITS | Encounter Summary ---
Author Organization [facility] Address [address] [place] [address] Phone Care Team Providers Care Senior C Developer Name Role Phone Pcp, Unknown Primary Care Provider Unavailabl e Unknown, Unknown MD Primary Care Provider Marcel Suarez MD Primary Care Provid er Encounter Details Date Type Department Care Team (Latest Contact Info) Description 02/01/2016 Ancillary Orders [facility] Orthopedics - [address] [address] Oswaldo Reilly PA-C [address] [place] [id number] [email or web address] Syncope, unspecified (Primary Dx) Social History [...] Primary documented in this encounter Care Teams Senior C Developer Relationship Specialty Start Date End Date Pcp, Unknown PCP - General 01/12/16 02/20/18 Unknown, Unknown, PCP - General 02/21/18 09/15/23 Marcel Cruz MD [address] [place] [id number] PCP - General Internal Medicine 09/16/23 documented as of this encounter Additional Source Comments The information contained in this document represents components of the legal health record. It is not the complete legal health record.[facility]
--- OUTSIDE RECORDS SUMMARY | 2025-04-05 16:11 | XMS_ITS | Encounter Summary ---
Demographics Address [address] [place] [address] Mobile Phone Home Phone Email Address Preferred Language Botswanan Marital Status /Civil Union Denominational Affiliation Unknown Race White Ethnic Group Not or Lati no Author Organization [facility] Address [address] [place] [address] Phone Support Name Relationship Address Phone Dyana Willson Personal Relationship [address] [place] [address] Care Team Providers Care Technical Systems Architect Name Role Phone Unknown, Unknown Primary Care Provider Marcel Suarez MD Primary Care Provid er Encounter Details Date Type Department Care Team (Late st Contact Info) Description 02/21/2018 Procedure Pass [facility] [place], [place] [address], [address], [address] [place] [address] Social History Tobacco Use Types Packs/Day Years [...] on filedocumented in this encounter Care Teams Technical Systems Architect Relationship Specialty Start Date End Date Unknown, Unknown, PCP - General 02/21/18 09/15/23 Marcel Cruz MD [address] [place] [address] PCP - General Internal Medicine 09/16/23 documented as of this encounter Additional Source Comments The information contained in this document represents components of the legal health record. It is not the complete legal health record.[facility]
--- OUTSIDE RECORDS SUMMARY | 2025-04-05 16:11 | XMS_ITS | Clinical Summary ---
Demographics Address [address] [place], [place] [address] Home Phone Work Phone Mobile Phone Home Phone Preferred Language en Marital Status Single Jewish Affiliation Unknown Race White Ethnic Group Not or Lati no Author Organization [facility] ity Address [address] [place] [address] Care Team Providers Care Wire Winding Machine Operator Name Role Phone Lupe Perry DO Primary Care Provider [phone] Social History Tobacco Use Types Packs/Day Years [...] age to complete this topic Care Teams Wire Winding Machine Operator Relationship Specialty Start Date End Date Lupe Perry DO [address] [place] [address] PCP - General Family Medicine 10/10/16
== END 2025-04-05 14:13 | disposition home or self-care (01) ==
LOC: HO.HOS 13:10
PROVIDERS: PCP Internal Medicine; Visit Provider Physician Assistant
DX: Z98.890 Other specified postprocedural states (principal)
CPT/HCPCS: 99024

== ENCOUNTER → 2025-04-05 13:09 | Outpatient (BNVA) | payer OTHER, SELFPAY | PROVIDERS: PCP Internal Medicine; Visit Provider Physician Assistant | DX: Z47.89 Encounter for other orthopedic aftercare (principal); Z98.890 Other specified postprocedural states | CPT/HCPCS: 99212 ==

== ENCOUNTER 2025-04-07 10:10 | Outpatient (AMB) | payer OTHER, SELFPAY ==
--- NOTE | 2025-04-07 10:24 | A.OFFVIS_ITS ---
Intake Visit Reasons: PO - LT RTC repair 03/30/25 NE (Suture removal) Intake Note: Yamil is a 39 year old male who presents today for a suture removal. Last suture was on the posterior aspect to of the shoulder. No irritation or redness. Suture was removed. Patient also mentioned he had a moment were he braced him self with his surgical arm and it having mild pain. Allergies metoclopramide (From REGLAN) Allergy (Intermediate, Verified 04/07/25 10:25) AGITATION prochlorperazine (From COMPAZINE) Allergy (Intermediate, Verified 04/07/25 10:25) AGITATION diphenhydramine (From BENADRYL) Adverse Reaction (Intermediate, Verified 04/07/25 10:25) AGITATION HPI HPI PO - LT RTC repair 03/30/25 NE (Suture removal): Details: Mr. Quarles is a 39-year-old male who presents to the office today status post left shoulder rotator cuff repair performed on 03/30/[address] Patel. Patient reports that the most posterior suture remains intact. He continues to have hypertension with readings at home 170's / low 100's. Continues to have facial swelling. Patient also reports that he was getting dressed this morning and started to lose his balance. He placed his left upper extremity out to brace his fall. He did not have his arm move above his shoulder height. He has had a slight increase in the pain since this episode. [facility] Medical History HTN (hypertension) Thiamin deficiency Vitamin D deficiency Left shoulder pain Decreased range of motion of shoulder Spondylosis Anemia Primary hypertension Obstructive sleep apnea Class 2 severe obesity with body mass index (BMI) of 35 to 39.9 with serious comorbidity Kidney stone Migraine Afib Depression Anxiety GERD (gastroesophageal reflux disease) Pneumonia Surgical History History of cystoscopy History of wisdom tooth extraction Hx of cholecystectomy Hx of appendectomy Family History Other Diabetes HTN (hypertension) Substance use disorder Social History Housing: Apartment Are you a primary care team assistant to a significant other at home: No Do you presently have visiting nurse or other home services: No Alcohol intake: current Alcohol intake frequency: holidays/special occasions only Comment: COUNTS CORRECT Patient Tobacco Use Status: Never used Tobacco e-Cigarette/Vaping Use: Never Used Second Hand Smoke Exposure: No Substance Use Type: Marijuana Advance Directives Date on File: 05/01/20 service: No Current occupational status: disabled Cognitive needs: No Hearing needs: No Vision needs: Yes (glasses) Review of Systems Const All systems reviewed & are unremarkable except as noted in HPI and below Physical Exam Const General: cooperative, healthy appearing and no acute distress Resp Effort & Inspection: normal respiratory effort and able to speak in complete sentences Extrem Other: Left shoulder incision sites are clean dry and intact. Posterior suture remains intact. No surrounding erythema or drainage. No signs of infection. Ecchymosis along the medial aspect of the biceps extending towards the elbow. NVI. Psych Appearance: grossly normal Mental Status: mental status grossly normal Attitude: cooperative Assessment & Plan Assessment & Plan (1) Status post left rotator cuff repair: Code(s): Z98.890 - Other specified postprocedural states Category: Surgical Plan Mr. Quarles is a 39-year-old male who presents to the office today status post left shoulder rotator cuff repair performed on 03/30/[address] Patel. Patient reports that the most posterior suture remains intact. He continues to have hypertension with readings at home 170's / low 100's. Continues to have facial swelling. Patient also reports that he was getting dressed this morning and started to lose his balance. He placed his left upper extremity out to brace his fall. He did not have his arm move above his shoulder height. He has had a slight increase in the pain since this episode. Remaining suture was removed in the office today. Blood pressure reading obtained in the office today is 171/109. Patient reports that his blood pressure has remained in this range for the past 8 days since surgery. I have reached out to Dr. Cruz, his PCP for recommendations. He states that he will see the patient in the office today 13:00. Patient understands and accepts. I instructed the patient that should he have any increase in his blood pressure, dizziness or lightheadedness or headache he should present to the emergency department immediately. I also provided the patient with the information to reach the on-call service here at Orthopedics should he need to after hours. He will follow up with orthopedics at his normally scheduled follow up appointment, sooner if needed. Coding Level of Care Code Global (84310) Diagnoses Status post left rotator cuff repair Z98.890
--- OUTSIDE RECORDS SUMMARY | 2025-04-07 12:24 | XMS_ITS | Encounter Summary ---
Author Organization [facility] Address [address] [place] [address] Phone Care Team Providers Care Juice Scaleman Name Role Phone Pcp, Unknown Primary Care Provider Unavailabl e Unknown, Unknown MD Primary Care Provider Marcel Suarez MD Primary Care Provid er Encounter Details Date Type Department Care Team (Latest Contact Info) Description 02/01/2016 Ancillary Orders [facility] Orthopedics - [address] [address] Oswaldo Reilly PA-C [address] [place] [address] [email or web address] Syncope, unspecified (Primary Dx) Social History [...] Primary documented in this encounter Care Teams Juice Scaleman Relationship Specialty Start Date End Date Pcp, Unknown PCP - General 01/12/16 02/20/18 Unknown, Unknown, PCP - General 02/21/18 09/15/23 Marcel Cruz MD [address] [place] [address] PCP - General Internal Medicine 09/16/23 documented as of this encounter Additional Source Comments The information contained in this document represents components of the legal health record. It is not the complete legal health record.[facility]
--- OUTSIDE RECORDS SUMMARY | 2025-04-07 12:24 | XMS_ITS | Patient Health Record ---
Author Organization [facility] Address [address], [place] [address] Care Team Providers Care Facilities Director Name Role Phone Lupe Perry Unavailable [phone] Allergies Allergen (clinical drug ingredient) Drug/Non Drug [...] Notes Problem Obesity due to excess calories (442443886) Other obesity due to excess calories (E66.09) Active confirmed Problem Recurrent major depression (40474607) Major depressive disorder, recurrent, unspecified (F33.9) Active confirmed Problem Generalized anxiety disorder (45890111) Generalized anxiety disorder (F41.1) Active confirmed Problem Chronic intractable migraine without aura (075824832598988) Chronic migraine without aura, intractable, without status migrainosus (G43.719) Active confirmed Problem Insomnia (135066774) Insomnia, unspecified (G47.00) Active confirmed Problem DOBSON - Nonalcoholic steatohepatitis (259199858) Nonalcoholic steatohepatitis (DOBSON) (K75.81) Active confirmed Problem Sciatica (38618691) Lumbago with sciatica, unspecified side (M54.40) Active confirmed Plan Of Treatment No Information Insurance Providers Payer Name Payer Address Payer Phone Subscriber Number Group Number Insured Name Patient Relationship to Insured Coverage Start Date Coverage End Date GIULIANO ROSENDO [address] [place] [phone] [id number] Yamil Quarles Self - patient is the insured Medical (General) History Medical History History ICD Code anxiety insomnia migraines cluster headaches depression situational AFib s/p cardioversion Surgical History Surgery Date(Month/Year) appendectomy 2016 wisdom teeth 2001 Botox injection for migraine- 2nd set sc heduled for 09/201707/15/2017 Hospitalization History Reason Date(Month/Year) [facility] - extreme depression / anxiety January 2016 AFib - cardioversion 2015 AFib - cardioversion 2011 [facility] - syncope; w/u WNL 2015
--- OUTSIDE RECORDS SUMMARY | 2025-04-07 12:24 | XMS_ITS | Clinical Summary ---
Demographics Address [address] [place], [place] [address] Home Phone Work Phone Mobile Phone Home Phone Preferred Language en Marital Status Single Evangelical Affiliation Unknown Race White Ethnic Group Not or Lati no Author Organization [facility] ity Address [address] [place] [address] Care Team Providers Care Soap Chipper Name Role Phone Lupe Perry DO Primary Care Provider [phone] Social History Tobacco Use Types Packs/Day Years [...] age to complete this topic Care Teams Soap Chipper Relationship Specialty Start Date End Date Lupe Perry DO [address] [place] [address] PCP - General Family Medicine 10/10/16
--- OUTSIDE RECORDS SUMMARY | 2025-04-07 12:24 | XMS_ITS | Encounter Summary ---
Demographics Address [address] [place] [address] Mobile Phone Home Phone Email Address Preferred Language Citizen Of The [place] Marital Status /Civil Union Restoration Affiliation Unknown Race White Ethnic Group Not or Lati no Author Organization [facility] Address [address] [place] [address] Phone Support Name Relationship Address Phone Dyana Willson Personal Relationship [address] [place] [address] Care Team Providers Care Correctional Supervisor Name Role Phone Unknown, Unknown Primary Care Provider Marcel Suarez MD Primary Care Provid er Encounter Details Date Type Department Care Team (Late st Contact Info) Description 02/21/2018 Procedure Pass [facility] [place], [place] [address] [facility], 2nd Floor, [address] [place] [address] Social History Tobacco Use Types Packs/Day Years [...] on filedocumented in this encounter Care Teams Correctional Supervisor Relationship Specialty Start Date End Date Unknown, Unknown, PCP - General 02/21/18 09/15/23 Marcel Cruz MD [address] [place] [address] PCP - General Internal Medicine 09/16/23 documented as of this encounter Additional Source Comments The information contained in this document represents components of the legal health record. It is not the complete legal health record.[facility]
== END 2025-04-07 11:03 | disposition home or self-care (01) ==
LOC: HO.HOS 10:11
PROVIDERS: PCP Internal Medicine; Visit Provider Physician Assistant
DX: Z98.890 Other specified postprocedural states (principal)
CPT/HCPCS: 99024

== ENCOUNTER → 2025-04-07 10:10 | Outpatient (BNVA) | payer OTHER, SELFPAY | PROVIDERS: PCP Internal Medicine; Visit Provider Physician Assistant | DX: Z48.02 Encounter for removal of sutures (principal); Z98.890 Other specified postprocedural states; I10 Essential (primary) hypertension; R22.0 Localized swelling, mass and lump, head; M25.512 Pain in left shoulder | CPT/HCPCS: 99212 ==

== ENCOUNTER 2025-04-07 13:00 | Outpatient (AMB) | payer OTHER, SELFPAY ==
--- NOTE | 2025-04-07 13:03 | MHC.PC.OV ---
Vital Signs 04/07/25 13:04 Height 5 ft 9 in Weight 229 lb 2 oz BMI 33.8 BP 152/96 H Blood Pressure Location Rt brachial Position Sitting Pulse 107 H Pulse Source Pulse Oximeter Temp 97.1 F Temp Source Temporal Artery Scan Pulse Oximetry (%) 97 Oxygen Delivery Method Room Air Intake Visit Reasons: BP Intake Note: Patient is here to follow up on High BP. Jewel Bearing Driller Required: No Senior Php Developer: Not Required per policy Accompanied by: Self / Same As Patient Allergies metoclopramide (From REGLAN) Allergy (Intermediate, Verified 04/27/25 08:53) AGITATION prochlorperazine (From COMPAZINE) Allergy (Intermediate, Verified 04/27/25 08:53) AGITATION diphenhydramine (From BENADRYL) Adverse Reaction (Intermediate, Verified 04/27/25 08:53) AGITATION Medication List - Last Reconciled 04/27/25 by Marcel Cruz MD acetaminophen (Tylenol Extra Strength) 500 mg PO Q6H PRN amlodipine 10 mg PO DAILY bupropion HCl XL 1 tab PO QAM cholecalciferol (vitamin D3) 50 mcg PO DAILY clonazepam 1 tab PO BEDTIME PRN [enclomiphene 1 tab PO DAILY 90 days] gabapentin 300 mg PO BID hydralazine 10 mg PO BID ibuprofen 800 mg PO Q6H PRN lidocaine 5% (Lidoderm) 1 patch topical DAILY PRN MDD remove after 12 hours naloxone 4 mg/actuation (Narcan) 4 mg intranasal Q2M PRN naproxen 500 mg PO BID PRN 10 days omeprazole 20 mg PO BEDTIME ondansetron 4 mg PO Q6-8H PRN oxycodone 5 mg PO Q4-6H PRN 7 days potassium chloride 20 mEq (15 mL) PO TID 5 days rizatriptan 10 mg PO DAILY PRN topiramate 25 mg PO BEDTIME trazodone 150 mg PO BEDTIME Tobacco use date assessed: 04/07/25 Dental Screening Dental Screen Date: 09/02/24 HPI BP HPI Details 39-year-old male presents to the office for a same-day visit. Patient was seen at the orthopedic clinic today and was found to have elevated blood pressure. Patient has had elevated blood pressure on a few times in the past month. Reports no symptoms of headache or chest tightness. No nausea or vomiting. [facility] Medical History (Updated 10/15/25 @ 08:55 by Marcel Cruz MD) HTN (hypertension) Thiamin deficiency Vitamin D deficiency Left shoulder pain Decreased range of motion of shoulder Spondylosis Anemia Primary hypertension Obstructive sleep apnea Class 2 severe obesity with body mass index (BMI) of 35 to 39.9 with serious comorbidity Kidney stone Migraine Afib Depression Anxiety GERD (gastroesophageal reflux disease) Pneumonia Surgical History History of shoulder surgery History of cystoscopy History of wisdom tooth extraction Hx of cholecystectomy Hx of appendectomy Family History Other Diabetes HTN (hypertension) Substance use disorder Social History Housing: Apartment Are you a primary rn transitional care to a significant other at home: No Do you presently have visiting nurse or other home services: No Alcohol intake: current Alcohol intake frequency: holidays/special occasions only Comment: COUNTS CORRECT Patient Tobacco Use Status: Never used Tobacco e-Cigarette/Vaping Use: Never Used Second Hand Smoke Exposure: No Substance Use Type: Marijuana Advance Directives Date on File: 05/01/20 service: No Current occupational status: disabled Cognitive needs: No Hearing needs: No Vision needs: Yes (glasses) Questionnaire Thrive Questionnaire Date Thrive assessed: 09/02/24 JAROD-7 AMB Questionnaire JAROD-7 Date JAROD - 7 assessed: 09/02/24 Source: Developed by Drs. Diomedes Montanez, Jordana Nieves, George Duke and colleagues, with an educational francisco from [employer]. Physical exam (Primary Care) Vital Signs: Last Vital Signs Temp 97.1 F 04/07/25 13:04 Pulse 107 H 04/07/25 13:04 BP 152/96 H 04/07/25 13:04 Pulse Ox 97 04/07/25 13:04 Oxygen Delivery Method Room Air 04/07/25 13:04 BMI result Body Mass Index 33.8 Tobacco/Smoking Status: Tobacco use Status Tobacco use date assessed 04/07/25 04/07/25 13:11 Patient Tobacco Use Status Never used Tobacco 04/07/25 13:11 e-Cigarette/Vaping Use Never Used 04/07/25 13:11 Thrive Assessment: Date of Thrive Assessment Date Thrive assessed 09/02/24 04/07/25 13:11 Const General: cooperative and healthy appearing Nutritional Appearance: well nourished Orientation/consciousness: patient oriented x3 Limitations: no limitations HENMT Head: Yes normal to inspection Eyes General: appearance normal, both eyes and all related structures Neck Neck: Yes normal visual inspection Chest Chest palpation & inspection: normal palpation of entire chest wall Resp Effort & Inspection: normal respiratory effort Neuro General: patient oriented x3 Coding Level of Care Code Est Pt Level 4 (51232) Complex EM visit Add On G2211 Diagnoses HTN (hypertension) I10 Assessment & Plan Assessment & Plan (1) HTN (hypertension): Code(s): I10 - Essential (primary) hypertension Category: Medical Plan: Blood pressure was recorded twice and was found to be markedly elevated. Hydralazine 10 mg twice a day has been started. Patient was recommended to check blood pressures and bring in the reading. A follow-up appointment in 4 weeks has been given. Medications: New hydralazine 10 mg PO BID 60 tabs 0RF
[2025-04-07 13:04] VITALS: BP 152/96; PULSE 107; TEMP 36.2; O2SAT 97; BMI 33.8
== END 2025-04-07 13:19 | disposition home or self-care (01) ==
LOC: HO.HMCH 13:00
PROVIDERS: PCP Internal Medicine; Visit Provider Internal Medicine
DX: I10 Essential (primary) hypertension (principal)

== ENCOUNTER 2025-05-02 11:11 | Outpatient (AMB) | payer OTHER, SELFPAY ==
--- NOTE | 2025-05-02 11:17 | MHC.OFFVIS ---
Vital Signs 05/02/25 11:28 Height 5 ft 9 in Weight 229 lb BMI 33.8 Intake Visit Reasons: PO LT RTC repair 03/30/25 NE Intake Note: Yamil is a 39 year old left hand dominant male who presents today for a post operative appointment about 4 weeks s/p Left Rotator Cuff Repair 03/30/25. He has had some difficulty managing BP post operatively and has met with his PCP, Dr. Cruz, about this. He continues to work with [facility]. Allergies metoclopramide (From REGLAN) Allergy (Intermediate, Verified 05/02/25 11:28) AGITATION prochlorperazine (From COMPAZINE) Allergy (Intermediate, Verified 05/02/25 11:28) AGITATION diphenhydramine (From BENADRYL) Adverse Reaction (Intermediate, Verified 05/02/25 11:28) AGITATION HPI HPI PO LT RTC repair 03/30/25 NE: Details: Yamil is a 39 year old left hand dominant male who presents today for a post operative appointment about 4 weeks s/p Left Rotator Cuff Repair 03/30/25. He has had some difficulty managing BP post operatively and has met with his PCP, Dr. Cruz, about this. He continues to work with [facility]. [facility] Medical History HTN (hypertension) Thiamin deficiency Vitamin D deficiency Left shoulder pain Decreased range of motion of shoulder Spondylosis Anemia Primary hypertension Obstructive sleep apnea Class 2 severe obesity with body mass index (BMI) of 35 to 39.9 with serious comorbidity Kidney stone Migraine Afib Depression Anxiety GERD (gastroesophageal reflux disease) Pneumonia Surgical History History of shoulder surgery History of cystoscopy History of wisdom tooth extraction Hx of cholecystectomy Hx of appendectomy Family History Other Diabetes HTN (hypertension) Substance use disorder Social History Housing: Apartment Are you a primary urgent care nurse practitioner to a significant other at home: No Do you presently have visiting nurse or other home services: No Alcohol intake: current Alcohol intake frequency: holidays/special occasions only Comment: COUNTS CORRECT Patient Tobacco Use Status: Never used Tobacco e-Cigarette/Vaping Use: Never Used Second Hand Smoke Exposure: No Substance Use Type: Marijuana Advance Directives Date on File: 05/01/20 service: No Current occupational status: disabled Cognitive needs: No Hearing needs: No Vision needs: Yes (glasses) Physical Exam Exam Exam: Portals clean dry and intact. Passive range of motion 20/70/100 Neurovascularly intact left upper extremity Vital Signs: BMI result Body Mass Index 33.8 Assessment & Plan Assessment & Plan (1) Status post left rotator cuff repair: Code(s): Z98.890 - Other specified postprocedural states Category: Surgical Plan: Status post left rotator cuff repair. He is doing well but it is only a month out. Continue sling use for another 2 weeks. Return to see me in 8 weeks. Continue PT as per protocol. Tylenol and ibuprofen for pain at night. Coding Level of Care Code Global (63220) Diagnoses Status post left rotator cuff repair Z98.890
[2025-05-02 11:28] VITALS: BMI 33.8
== END 2025-05-02 11:36 | disposition home or self-care (01) ==
LOC: HO.HOS 11:11
PROVIDERS: PCP Internal Medicine; Visit Provider Orthopaedic Surgery
DX: Z98.890 Other specified postprocedural states (principal)
CPT/HCPCS: 99024

== ENCOUNTER → 2025-05-02 11:11 | Outpatient (BNVA) | payer OTHER, SELFPAY | PROVIDERS: PCP Internal Medicine; Visit Provider Orthopaedic Surgery | DX: M25.512 Pain in left shoulder (principal); Z98.890 Other specified postprocedural states | CPT/HCPCS: 99212 ==

== ENCOUNTER 2025-05-23 11:57 | Outpatient (REF) | payer OTHER, SELFPAY ==
[2025-05-23 12:14] LABS: MANUAL DIFF FLAG NO
[2025-05-23 12:32] LABS: Hematocrit 43.7 % (42.0-52.0); Hemoglobin 14.7 g/dl (14.0-18.0); Imm Gran Abs Auto 0.02 X10*3/uL (0.00-0.03); Imm Gran Pct Auto 0.3 % (0.0-0.4); Lymphocytes Absolute Auto 2.3 X10*3/uL (1.2-4.9); Mean Corpuscular HGB Conc 33.6 g/dl (31.0-36.0); Mean Corpuscular Hemoglobin 28.3 pg (27.0-33.0); Mean Corpuscular Volume 84.0 fL (80.0-98.0); NRBC Abs Auto 0.000 X10*3/uL (0.0-0.012); NRBC Pct Auto 0.0 /100WBC (0.0-0.2); Platelet Count 318 X10*3/uL (160-400); Red Blood Count 5.20 X10*6/uL (4.60-5.80); White Blood Count 6.0 X10*3/uL (4.8-10.8)
[2025-05-23 13:34] LABS: Alanine Aminotransferase 33 U/L (0-40); Albumin Level 4.5 g/dL (3.5-5.0); Alkaline Phosphatase 130 U/L (39-117); Anion Gap 11 (12-20); Aspartate Amino Transferase 20 U/L (5-37); Blood Urea Nitrogen 10 mg/dL (9-16); Calcium 9.0 mg/dL (8.4-10.2); Carbon Dioxide 27 mmol/L (22-29); Chloride 109 mmol/L (96-108); Cholesterol 236 mg/dL (<200); Estimated Glomerular Filt Rate > 60; HDL Cholesterol 33 mg/dL (>40); Potassium 3.1 mmol/L (3.3-5.1); Sodium 144 mmol/L (135-145); Total Protein 7.3 g/dL (6.5-8.0); Triglycerides 162 mg/dL (<150)
--- OUTSIDE RECORDS SUMMARY | 2025-05-23 14:27 | XMS_ITS | Clinical Summary ---
Demographics Address [address] [place] [address] Home Phone Work Phone Mobile Phone Home Phone Preferred Language en Marital Status Single Caodaism Affiliation Unknown Race White Ethnic Group Not or Lati no Author Organization [facility] ity Address [address] [place] [address] Care Team Providers Care Lead Business Analyst Name Role Phone Lupe Perry DO Primary Care Provider [phone] Social History Tobacco Use Types Packs/Day Years [...] of 3 - 19+ 3-dose series) 10/25/2002 HPV Vaccines (1 - 3-dose SCD M series) 10/25/2010 Depression Screening 07/14/2024 COVID-19 Vaccine (1 - 2023-2 5 season) 2025 Influenza Vaccine (#1) 2025 RSV Immunization Adult Patie nts (1 - 1-dose 75+ series) 10/25/2058 HIB Vaccines Aged Out No longer eligi [...] age to complete this topic Care Teams Lead Business Analyst Relationship Specialty Start Date End Date Lupe Perry DO [address] [place] [address] PCP - General Family Medicine 10/10/16
--- OUTSIDE RECORDS SUMMARY | 2025-05-23 14:27 | XMS_ITS | Clinical Summary ---
Demographics Address [address] [place] [address] Mobile Phone Home Phone Email Address Preferred Language Indonesian Marital Status /Civil Union Amish Affiliation Unknown Race White Ethnic Group Not or Lati no Author Organization [facility] Address [address] [address] [address] Phone Support Name Relationship Address Phone Dyana Willson Personal Relationship [address] [place] [address] Care Team Providers Care Web Weaver Name Role Phone Marcel Cruz MD Primary [...] day 90 capsule 4 4 Active rizatriptan (MAXALT-FURNACE LINER) 10 MG disintegrating tablet TAKE 1 TABLET [...] 01/30/2017 01/31/2016 SCREENING FOR DIABETES 01/30/2019 01/31/2016 DEPRESSION SCREENING 10/13/2024 10/14/2023 INFLUENZA VACCINE (#1) 2025 COVID-19 VACCINE (2 - 2024-2 6 season) 2025 11/17/2020 HEPATITIS A VACCINES Aged Out No long [...] Date/Time Associated Diagnosis Comments BASIC METABOLIC PANEL (BMP) STAT 01/31/2016 2:14 AM EDT from Last 3 Months or Most Recently Relevant to Health Maintenance Results * Basic metabolic panel (01/31/2016 2:14 AM EDT) SODIUM 139 135 - 145 mmol/L [facility] POTASSIUM 4.0 3.4 - 5.0 mmol/L [facility] CHLORIDE 100 98 - 108 mmol/L [facility] CO2 28 23 - 32 mmol/L [facility] BUN 10 8 - 25 mg/dL [facility] CREATININE 0.84 0.60 - 1.50 mg/dL [facility] GLUCOSE 96 70 - 110 mg/dL [facility] CALCIUM 9.0 8.5 - 10.5 mg/dL [facility] EGFR >60 mL/min/1.7 3m2 [facility] Comment:Abnormal if <60 mL/m in/1.73m2. If patient is -Togolese, multiply the result by 1.21. ANION GAP 11 3 - 17 mmol/L [facility] Blood 01/31/2016 2:14 AM EDT 01/31/2016 2:27 AM EDT us Val Solano PA-C LAB BLOOD BKR ORDERABLES F inal Result [facility] [address] [place] [phone] from Last 3 Months or Most Recently Relevant to Health Maintenance Insurance [address], [place] [address] MEDICARE PART A & B [facility] ONE CARE MEDICARE REPLACEMENT MEDICARE PART A & B [facility] RE[facility]AC[facility] MEDICARE PART A & B MEDICARE PART A & B * Guarantor: Yamil Quarles Account Type Relation to Patient Date of Phone Billing Address Personal/Family Self 1985 [address] [place], [place] MEDICARE PART A & B ONE CARE MEDICARE REPLACEMENT * Guarantor: Yamil Quarles Account Type Relation to Patient Date of Phone Billing Address Personal/Family Self 1985 [address] [place], [place] MEDICARE PART A & B MEDICARE PART A & B ONE CARE MEDICARE REPLACEMENT SHIVANI PENA [address] MEDICARE PART A & B [facility] ONE CARE MEDICARE REPLACEMENT [address], [place] [address] MEDICARE PART A & B [facility] ONE CARE MEDICARE REPLACEMENT Care Teams Web Weaver Relationship Specialty Start Date End Date Marcel Cruz MD [address] [place] [address] PCP - General Internal Medicine 3/5/24 Additional Source Comments The information contained in this document represents components of the legal health record. It is not the complete legal health record.[facility]
--- OUTSIDE RECORDS SUMMARY | 2025-05-23 14:27 | XMS_ITS | Encounter Summary ---
Author Organization [facility] Address [address] [place] [address] Phone Care Team Providers Care Construction Flagger Name Role Phone Pcp, Unknown Primary Care Provider Unavailabl e Unknown, Unknown MD Primary Care Provider Marcel Suarez MD Primary Care Provid er Encounter Details Date Type Department Care Team (Latest Contact Info) Description 02/01/2016 Ancillary Orders [facility] Orthopedics - [address] [address] Oswaldo Reilly PA-C [address] [place] [id number] [email or web address] Syncope, unspecified (Primary Dx) Social History [...] Primary documented in this encounter Care Teams Construction Flagger Relationship Specialty Start Date End Date Pcp, Unknown PCP - General 01/12/16 02/20/18 Unknown, Unknown, PCP - General 02/21/18 09/15/23 Marcel Cruz MD [address] [place] [id number] PCP - General Internal Medicine 09/16/23 documented as of this encounter Additional Source Comments The information contained in this document represents components of the legal health record. It is not the complete legal health record.[facility]
--- OUTSIDE RECORDS SUMMARY | 2025-05-23 14:27 | XMS_ITS | Encounter Summary ---
Demographics Address [address] [place] [address] Mobile Phone Home Phone Email Address Preferred Language Frisian Marital Status /Civil Union Hoahaoism Affiliation Unknown Race White Ethnic Group Not or Lati no Author Organization [facility] Address [address] [place] [address] Phone Support Name Relationship Address Phone Dyana Willson Personal Relationship [address] [place] [address] Care Team Providers Care Programming Engineer Name Role Phone Unknown, Unknown Primary Care Provider Marcel Suarez MD Primary Care Provid er Encounter Details Date Type Department Care Team (Late st Contact Info) Description 02/21/2018 [place] [facility] [place] [address] [facility], 2nd Floor, [address] [place] [address] Social History Tobacco Use Types Packs/Day Years [...] on filedocumented in this encounter Care Teams Programming Engineer Relationship Specialty Start Date End Date Unknown, Unknown, MD PCP - General 02/21/18 09/15/23 Marcel Cruz MD [address] [place] [address] PCP - General Internal Medicine 09/16/23 documented as of this encounter Additional Source Comments The information contained in this document represents components of the legal health record. It is not the complete legal health record.[facility]
== END 2025-05-23 11:58 | disposition home or self-care (01) ==
LOC: HO.LAB 11:57
PROVIDERS: Absent Provider Nurse Practitioner Psychiatric/Mental Health; PCP Internal Medicine; Visit Provider Urology
DX: E29.1 Testicular hypofunction (principal); Z79.899 Other long term (current) drug therapy
CPT/HCPCS: 36415; 80053; 80061; 83002; 83036; 84403; 85025

== ENCOUNTER 2025-05-25 09:07 | Outpatient (AMB) | payer OTHER, SELFPAY ==
--- NOTE | 2025-05-25 09:12 | A.OFFPC_ITS ---
Vital Signs 05/25/25 09:13 Height 5 ft 9 in Weight 224 lb 6 oz BMI 33.1 BP 110/72 Blood Pressure Location Lt brachial Position Sitting Pulse 87 Pulse Source Pulse Oximeter Temp 97.1 F Temp Source Temporal Artery Scan Pulse Oximetry (%) 98 Oxygen Delivery Method Room Air Intake Visit Reasons: follow up Intake Note: Patient is here to follow up on HTN, PASTORA. Checkerer Hand Required: No Deputy Of Counter Intelligence: Present Accompanied by: Spouse Allergies metoclopramide (From REGLAN) Allergy (Intermediate, Verified 05/25/25 09:13) AGITATION prochlorperazine (From COMPAZINE) Allergy (Intermediate, Verified 05/25/25 09:13) AGITATION diphenhydramine (From BENADRYL) Adverse Reaction (Intermediate, Verified 05/25/25 09:13) AGITATION Tobacco use date assessed: 05/25/25 Dental Screening Dental Screen Date: 09/02/24 [facility] Medical History HTN (hypertension) Thiamin deficiency Vitamin D deficiency Left shoulder pain Decreased range of motion of shoulder Spondylosis Anemia Primary hypertension Obstructive sleep apnea Class 2 severe obesity with body mass index (BMI) of 35 to 39.9 with serious comorbidity Kidney stone Migraine Afib Depression Anxiety GERD (gastroesophageal reflux disease) Pneumonia Surgical History History of shoulder surgery History of cystoscopy History of wisdom tooth extraction Hx of cholecystectomy Hx of appendectomy Family History Other Diabetes HTN (hypertension) Substance use disorder Social History Housing: Apartment Are you a primary healthcare advisory services manager to a significant other at home: No Do you presently have visiting nurse or other home services: No Alcohol intake: current Alcohol intake frequency: holidays/special occasions only Comment: COUNTS CORRECT Patient Tobacco Use Status: Never used Tobacco e-Cigarette/Vaping Use: Never Used Second Hand Smoke Exposure: No Substance Use Type: Marijuana Advance Directives Date on File: 05/01/20 service: No Current occupational status: disabled Cognitive needs: No Hearing needs: No Vision needs: Yes (glasses) Questionnaire Thrive Questionnaire Date Thrive assessed: 05/04/25 I am a: Patient What is your living situation today?: I have a steady place to live Within the past 12 months, did the food you bought not last and you didn't have the money to get more?: Never true Within the past 12 months, did you worry whether your food would run out before you got money to buy more?: Sometimes True Do you have trouble paying for medicines?: No Do you have trouble getting transportation to medical appointments?: No Do you have trouble paying your heating and electricity bill?: No Do you have trouble taking care of your child, family member or friend?: No Do you have trouble with day-to-day activities such as bathing, preparing meals, shopping, managing finances, etc.?: No Are you currently unemployed and looking for a job?: I choose not to answer this question Are you interested in more education?: No Please select the resources that you would like help with: None Currently or been in a relationship where the following occur: No concerns reported THRIVE Score: 1 JAROD-7 AMB Questionnaire JAROD-7 Date JAROD - 7 assessed: 09/02/24 Source: Developed by Drs. Diomedes Montanez, Jordana Nieves, George Duke and colleagues, with an educational francisco from [employer] Physical exam (Primary Care) Vital Signs: Last Vital Signs Temp 97.1 F 05/25/25 09:13 Pulse 87 05/25/25 09:13 BP 110/72 05/25/25 09:13 Pulse Ox 98 05/25/25 09:13 Oxygen Delivery Method Room Air 05/25/25 09:13 BMI result Body Mass Index 33.1 Tobacco/Smoking Status: Tobacco use Status Tobacco use date assessed 05/25/25 05/25/25 09:18 Patient Tobacco Use Status Never used Tobacco 05/25/25 09:18 e-Cigarette/Vaping Use Never Used 05/25/25 09:18 Thrive Assessment: Date of Thrive Assessment Date Thrive assessed 05/04/25 05/25/25 09:18 Currently or been in a relationship where the following occur: No concerns reported Coding Level of Care Code Est Pt Level 4 (81955) Diagnoses Primary hypertension I10 Assessment & Plan Assessment & Plan (1) Primary hypertension: Code(s): I10 - Essential (primary) hypertension Category: Medical Plan: History of Present Illness - The patient is a 39-year-old male presenting for a follow-up visit for hypertension management. - Regarding his hypertension, he was started on hydralazine twice daily after h is last visit and reports it is working well. - He has missed a couple of morning doses in the last two weeks, and on those days, his blood pressure increases to the 150s before his evening dose. - The patient also reports persistent pain in his left shoulder following a surgery in March. - He is currently undergoing physical therapy for this condition. 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 Review of Systems - Musculoskeletal: Reports persistent pain in the left shoulder. - Constitutional: Reports feeling well otherwise. Physical Exam General: Cooperative and healthy appearing Nutritional Appearance: Well nourished Orientation/consciousness: Patient oriented x3 Limitations: No limitations Head: Normal to inspection General: Appearance normal, both eyes and all related structures Neck: Normal visual inspection Chest: Normal palpation of entire chest wall Respiratory: Normal respiratory effort Neurology: Patient oriented x3 Results Plan - The patient will continue taking Hydralazine twice a day for his hypertension for the next three months. - At the three-month follow-up, a transition to a once-daily antihypertensive medication will be considered to improve adherence. - The patient will continue with physical therapy for his left shoulder pain. - An influenza vaccine will be administered today. - The patient will follow up in three months. Discussion Notes I discussed with the patient the plan to continue his current hydralazine regimen for the next three months. We will plan to switch to a once-daily medication at his next visit to improve compliance, as he has occasionally missed morning doses. I informed him that he will receive his influenza vaccine today. I advised him to return for a follow-up appointment in three months. The patient acknowledged and agreed to the plan. Patient Instructions - Continue to take your blood pressure medicine, Hydralazine, twice a day as prescribed. - Continue with your physical therapy for your left shoulder. - You will receive a flu shot today in the office. - Please schedule a follow-up appointment in three months to check your blood pressure and discuss changing to a once-a-day pill. Medications: New atorvastatin 10 mg PO BEDTIME 90 tabs 1RF
[2025-05-25 09:13] VITALS: BP 110/72; PULSE 87; TEMP 36.2; O2SAT 98; BMI 33.1
--- OUTSIDE RECORDS SUMMARY | 2025-05-25 09:53 | XMS_ITS | Encounter Summary ---
Demographics Address [address] [place] [address] Mobile Phone Home Phone Email Address Preferred Language Georgian Marital Status /Civil Union Faith Affiliation Unknown Race White Ethnic Group Not or Lati no Author Organization [facility] Address [address] [place] [address] Phone Support Name Relationship Address Phone Dyana Willson Personal Relationship [address] [place] [address] Care Team Providers Care Lawn Mower Repairer Name Role Phone Unknown, Unknown Primary Care Provider Marcel Suarez MD Primary Care Provid er Encounter Details Date Type Department Care Team (Late st Contact Info) Description 02/21/2018 Procedure Pass [facility], [place] [address] [facility] [address] [address], 2nd Floor, [address] [place] [address] Social History Tobacco Use Types Packs/Day Years [...] on filedocumented in this encounter Care Teams Lawn Mower Repairer Relationship Specialty Start Date End Date Unknown, Unknown, MD PCP - General 02/21/18 09/15/23 Marcel Cruz MD [address] [place] [address] PCP - General Internal Medicine 09/16/23 documented as of this encounter Additional Source Comments The information contained in this document represents components of the legal health record. It is not the complete legal health record.[facility]
--- OUTSIDE RECORDS SUMMARY | 2025-05-25 09:53 | XMS_ITS | Clinical Summary ---
Demographics Address [address] [place] [address] Mobile Phone Home Phone Email Address Preferred Language Icelandic Marital Status /Civil Union Rastafarian Affiliation Unknown Race White Ethnic Group Not or Lati no Author Organization [facility] Address [address] [address] Phone Support Name Relationship Address Phone Dyana Willson Personal Relationship [address] [place] [address] Care Team Providers Care Micrographics Services Supervisor Name Role Phone Marcel Cruz MD Primary [...] day 90 capsule 4 4 Active rizatriptan (MAXALT-MANAGER PEOPLE) 10 MG disintegrating tablet TAKE 1 TABLET [...] patient's age to complete this topic IPV VACCINES Aged Out No longer eligi ble [...] EDT) SODIUM 139 135 - 145 mmol/L [facility] POTASSIUM 4.0 3.4 - 5.0 mmol/L [facility] CHLORIDE 100 98 - 108 mmol/L [facility] CO2 28 23 - 32 mmol/L [facility] BUN 10 8 - 25 mg/dL [facility] CREATININE 0.84 0.60 - 1.50 mg/dL [facility] GLUCOSE 96 70 - 110 mg/dL [facility] CALCIUM 9.0 8.5 - 10.5 mg/dL [facility] EGFR >60 mL/min/1.7 3m2 [facility] Comment:Abnormal if <60 mL/m in/1.73m2. If patient is -Guamanian, multiply the result by 1.21. ANION GAP 11 3 - 17 mmol/L [facility] Blood 01/31/2016 2:14 AM EDT 01/31/2016 2:27 AM EDT us Val Solano PA-C LAB BLOOD BKR ORDERABLES F inal Result [facility] [address] [place] [address] from Last 3 Months or Most Recently Relevant to Health Maintenance Insurance * Guarantor: Yamil Quarles Account Type Relation to Patient Date of Phone Billing Address Personal/Family Self [address] [place] [address] MEDICARE PART A & B [facility] ONE CARE MEDICARE REPLACEMENT MEDICARE PART A & B MEDICARE REPLACEMENT * Guarantor: Yamil Quarles Account Type Relation to Patient Date of Phone Billing Address Personal/Family Self 1985 [address], [place] MEDICARE PART A & B MEDICARE PART A & B MEDICARE PART A & B ONE CARE MEDICARE REPLACEMENT SHIVANI [place] [address] MEDICARE PART A & B ONE CARE MEDICARE REPLACEMENT SHIVANI PENA [facility] [address] [place] [address] MEDICARE PART A & B [facility] ONE CARE MEDICARE REPLACEMENT [address], [place] [address] MEDICARE PART A & B Member Subscriber Plan / Payer (Ef fective 2020-Present) Name:Yamil Quarles Member ID:[id number] Relation to Subscriber:Self Name:Yamil Quarles Subscriber ID:[id number] Payer ID:[id number] Group ID:Not on file Type:Medicare Address: Naked [address] [place] [phone] [facility] CARE MEDICARE REPLACEMENT Care Teams Micrographics Services Supervisor Relationship Specialty Start Date End Date Marcel Cruz MD [address] [place] [address] [address] [place] [id number] PCP - General Internal Medicine 09/16/23 Additional Source Comments The information contained in this document represents components of the legal health record. It is not the complete legal health record.[facility]
--- OUTSIDE RECORDS SUMMARY | 2025-05-25 09:53 | XMS_ITS | Encounter Summary ---
Author Organization [facility] Address [address] [place] [address] Phone Care Team Providers Care Marketing Production Specialist Name Role Phone Pcp, Unknown Primary Care Provider Unavailabl e Unknown, Unknown MD Primary Care Provider Marcel Suarez MD Primary Care Provid er Encounter Details Date Type Department Care Team (Latest Contact Info) Description 02/01/2016 Ancillary Orders [facility] Orthopedics - [address] [address] Oswaldo Reilly PA-C [address] [place] [id number] [email or web address] Syncope, unspecified (Primary Dx) Social History [...] Primary documented in this encounter Care Teams Marketing Production Specialist Relationship Specialty Start Date End Date Pcp, Unknown PCP - General 01/12/16 02/20/18 Unknown, Unknown, PCP - General 02/21/18 09/15/23 Marcel Cruz MD [address] [place] [address] PCP - General Internal Medicine 09/16/23 documented as of this encounter Additional Source Comments The information contained in this document represents components of the legal health record. It is not the complete legal health record.[facility]
--- OUTSIDE RECORDS SUMMARY | 2025-05-25 09:53 | XMS_ITS | Patient Health Record ---
Author Organization [facility] Address [address] [place], [place] [id number] Care Team Providers Care Die Maker Trim Name Role Phone MARIELLA ALEJANDRE Unavailable [phone] Allergies Allergen (clinical drug ingredient) Drug/Non Drug [...] Notes Problem Obesity due to excess calories (873427502) Other obesity due to excess calories (E66.09) Active confirmed Problem Recurrent major depression (17937678) Major depressive disorder, recurrent, unspecified (F33.9) Active confirmed Problem Generalized anxiety disorder (72169234) Generalized anxiety disorder (F41.1) Active confirmed Problem Chronic intractable migraine without aura (639820575298263) Chronic migraine without aura, intractable, without status migrainosus (G43.719) Active confirmed Problem Insomnia (328173918) Insomnia, unspecified (G47.00) Active confirmed Problem DOBSON - Nonalcoholic steatohepatitis (642651668) Nonalcoholic steatohepatitis (DOBSON) (K75.81) Active confirmed Problem Sciatica (20342045) Lumbago with sciatica, unspecified side (M54.40) Active confirmed Plan Of Treatment No Information Insurance Providers Payer Name Payer Address Payer Phone Subscriber Number Group Number Insured Name Patient Relationship to Insured Coverage Start Date Coverage End Date GIULIANO ROSENDO [address] [place] [address] [phone] [id number] Yamil Quarles Self - patient is the insured Medical (General) History Medical History History ICD Code anxiety insomnia migraines cluster headaches depression situational AFib s/p cardioversion Surgical History Surgery Date(Month/Year) appendectomy 2016 wisdom teeth 2001 Botox injection for migraine- 2nd set sc heduled for 09/201707/15/2017 Hospitalization History Reason Date(Month/Year) [facility] - extreme depression / anxiety January 2016 AFib - cardioversion 2015 AFib - cardioversion 2011 [facility] - syncope; w/u WNL 2015
--- OUTSIDE RECORDS SUMMARY | 2025-05-25 09:53 | XMS_ITS | Clinical Summary ---
Demographics Address [address] [place] [address] Home Phone Work Phone Mobile Phone Home Phone Preferred Language en Marital Status Single Synagogue Affiliation Unknown Race White Ethnic Group Not or Lati no Author Organization [facility] ity Address [address] [place] [address] Care Team Providers Care Ground Transportation Operator Name Role Phone Lupe Perry DO Primary Care Provider [phone] Social History Tobacco Use Types Packs/Day Years [...] Depression Screening 07/14/2024 COVID-19 Vaccine (1 - 2024-2 6 season) 2025 Influenza Vaccine (#1) 2025 RSV [...] age to complete this topic Care Teams Ground Transportation Operator Relationship Specialty Start Date End Date Lupe Perry DO [address] [place] [address] PCP - General Family Medicine 10/10/16
== END 2025-05-25 10:00 | disposition home or self-care (01) ==
LOC: HO.HMCH 09:08
PROVIDERS: PCP Internal Medicine; Visit Provider Internal Medicine
DX: I10 Essential (primary) hypertension (principal); Z23 Encounter for immunization

== ENCOUNTER → 2025-05-25 09:07 | Outpatient (BNVA) | payer OTHER, SELFPAY | PROVIDERS: PCP Internal Medicine; Visit Provider Internal Medicine | DX: I10 Essential (primary) hypertension (principal); G47.33 Obstructive sleep apnea (adult) (pediatric); Z23 Encounter for immunization | CPT/HCPCS: 90471; 90656; 99212 ==

== ENCOUNTER 2025-06-03 09:52 | Outpatient (AMB) | payer OTHER, SELFPAY ==
--- NOTE | 2025-06-03 09:54 | A.OFFVIS_ITS ---
Intake Visit Reasons: 6M Testo/LH Labs Intake Note: Patient Is Present for lab results Urology Med: Enclomiphene Antibiotic Allergy: None Blood Thinner: None 05/23/2025 LH- 10.3 HA1C- 5.0 TESTOSTERONE: 399 Wants to discuss plan of treatment for penile skin flap Flight Radio Officer Required: No Telephone Maintenance Mechanic: Telephone Maintenance Mechanic Present Accompanied by: Family/Other Allergies metoclopramide (From REGLAN) Allergy (Intermediate, Verified 06/03/25 09:58) AGITATION prochlorperazine (From COMPAZINE) Allergy (Intermediate, Verified 06/03/25 09:58) AGITATION diphenhydramine (From BENADRYL) Adverse Reaction (Intermediate, Verified 06/03/25 09:58) AGITATION HPI Comments Details: Yamil is a pleasant male. He is seen for the following urologic c onditions - nephrolithiasis - hypospadias - low libido Follow-up testosterone labs On testosterone restorationist Labs - 12/05 T70 LH 3.4, 06/07 T 400 LH 10 Significant improvement in well-being with elevation of testosterone Does have sleep apnea and is not consistent with mask wearing Would like to move ahead with CO2 laser procedure of skin tag within meatal urethra Hypospadias Repair at 1 years old Performed locally by Dr. Branch Now with stream divergence Recommend examination under anesthesia with possible meatotomy Nephrolithiasis Yamil presents for - initial evaluation for nephrolithiasis, Initial presentation through emergency department Presenting symptoms included flank pain with associated nausea Imaging - 10/05 CT Right side: There is an obstructing 3 mm calculus within the distal right ureter resulting in right-sided hydroureter and periureteric inflammation. There is fullness of the right renal pelvis without sheila right-sided hydronephrosis. Left side: The left kidney is normal in size, shape, and attenuation. No hydronephrosis, hydroureter, or calculi seen. No perinephric stranding. At this stage symptoms resolved Does report increased cola intake [facility] Medical History HTN (hypertension) Thiamin deficiency Vitamin D deficiency Left shoulder pain Decreased range of motion of shoulder Spondylosis Anemia Primary hypertension Obstructive sleep apnea Class 2 severe obesity with body mass index (BMI) of 35 to 39.9 with serious comorbidity Kidney stone Migraine Afib Depression Anxiety GERD (gastroesophageal reflux disease) Pneumonia Surgical History History of shoulder surgery History of cystoscopy History of wisdom tooth extraction Hx of cholecystectomy Hx of appendectomy Family History Other Diabetes HTN (hypertension) Substance use disorder Social History Housing: Apartment Are you a primary rn homecare to a significant other at home: No Do you presently have visiting nurse or other home services: No Alcohol intake: current Alcohol intake frequency: holidays/special occasions only Comment: COUNTS CORRECT Patient Tobacco Use Status: Never used Tobacco e-Cigarette/Vaping Use: Never Used Second Hand Smoke Exposure: No Substance Use Type: Marijuana Advance Directives Date on File: 05/01/20 service: No Current occupational status: disabled Cognitive needs: No Hearing needs: No Vision needs: Yes (glasses) Review of Systems Const Denies chills and Denies fever(s) Card Reports no additional complaints and Denies syncope Resp Denies cough GI Denies abdominal pain and Denies heartburn Reports as per HPI and Denies change in libido Neuro Denies syncope Psych Denies change in libido Endo Denies change in libido Physical Exam Const General: cooperative, healthy appearing, comfortable and no acute distress Orientation/consciousness: patient oriented x3 HEENT Face and sinus: Yes normal facial exam Mouth: moist mucous membranes Neck Neck: Yes normal visual inspection, Yes full ROM and Yes trachea midline Chest Chest palpation & inspection: normal inspection of the chest Resp Effort & Inspection: normal respiratory effort, able to speak in complete sentences and no respiratory distress GI Inspection: Yes normal to inspection Back/Spine/Pelvis Cervical Spine: normal cervical lordosis Thoracic/Lumbar Spine: thoracic and lumbar spine normal to inspection Skin General skin exam: no rashes or lesions noted Neuro General: patient oriented x3, gait normal, tone normal and moves all extremities Extrem General: Yes normal to inspection and Yes capillary refill normal Assessment & Plan Assessment & Plan (1) Hypospadias in male: Code(s): Q54.9 - Hypospadias, unspecified Category: Medical (2) Hypogonadism in male: Code(s): E29.1 - Testicular hypofunction Category: Medical Plan Risks, benefits and alternatives to therapy were discussed. These include but are not limited to infection, bleeding, damage to local organs and tissues, need for further interventions. Anesthetic risks regarding cardiac arrhythmia, blood clots, and potential mortality were discussed. The patient understands the typical recovery time and the outpatient nature of the procedure. After consideration of these risks the patient gives full informed consent and they wish to move ahead with the procedure. - CO2 laser of skin tag within urethral meatus Medications: Refilled [enclomiphene] Patient Cell Number - [phone] [facility] - Fax 1 tab PO DAILY 90 tabs 1RF [facility] - Fax 90 days R68.82 - Decreased libido Patient Instructions: This note is constructed using voice recognition software. While every effort has been made to ensure accuracy farm machinery mechanic errors may have been included. Imaging studies, laboratory and physical exam results were discussed and reviewed in detail. No major barriers to patient understanding were identified. An opportunity to ask questions regarding the treatment plan was provided. All questions were answered. The patient expressed understanding and agreement with the above treatment plan. The patient is aware they should contact our office by phone for worsening of their current condition or the appearance of new urologic symptoms. Compliance is encouraged with any medications and followup testing that is ordered. It is a privilege to participate in the urologic care of your patient. If you have any questions or concerns regarding treatment for the above conditions, or other urologic issues, please do not hesitate to contact me. The office telephone contact is [phone]. Sincerely, Dr Juanjose Hackett MD, [facility] - Urology Compassionate Specialist Care for the Genitourinary System Coding Level of Care Code Est Pt Level 4 (39286) Diagnoses Hypospadias in male Q54.9 Hypogonadism in male E29.1
--- OUTSIDE RECORDS SUMMARY | 2025-06-03 10:32 | XMS_ITS | Patient Health Record ---
Author Organization [facility] Address [address] [place], [place] [address] Care Team Providers Care Rug Sizer Name Role Phone MARIELLA ALEJANDRE Unavailable [phone] Allergies Allergen (clinical drug ingredient) Drug/Non Drug [...] Notes Problem Obesity due to excess calories (197272124) Other obesity due to excess calories (E66.09) Active confirmed Problem Recurrent major depression (92323109) Major depressive disorder, recurrent, unspecified (F33.9) Active confirmed Problem Generalized anxiety disorder (25962937) Generalized anxiety disorder (F41.1) Active confirmed Problem Chronic intractable migraine without aura (320947508457593) Chronic migraine without aura, intractable, without status migrainosus (G43.719) Active confirmed Problem Insomnia (802314667) Insomnia, unspecified (G47.00) Active confirmed Problem DOBSON - Nonalcoholic steatohepatitis (321379785) Nonalcoholic steatohepatitis (DOBSON) (K75.81) Active confirmed Problem Sciatica (37545645) Lumbago with sciatica, unspecified side (M54.40) Active confirmed Plan Of Treatment No Information Insurance Providers Payer Name Payer Address Payer Phone Subscriber Number Group Number Insured Name Patient Relationship to Insured Coverage Start Date Coverage End Date GIULIANO ROSENDO [address] [place] [address] [id number] Yamil Quarles Self - patient is the insured Medical (General) History Medical History History ICD Code anxiety insomnia migraines cluster headaches depression situational AFib s/p cardioversion Surgical History Surgery Date(Month/Year) appendectomy 2016 wisdom teeth 2001 Botox injection for migraine- 2nd set sc heduled for 09/201707/15/2017 Hospitalization History Reason Date(Month/Year) [facility] - extreme depression / anxiety January 2016 AFib - cardioversion 2015 AFib - cardioversion 2011 [facility] - syncope; w/u WNL 2015
--- OUTSIDE RECORDS SUMMARY | 2025-06-03 10:32 | XMS_ITS | Clinical Summary ---
Demographics Address [address] [facility] [place] [address] Home Phone Work Phone Mobile Phone Home Phone Preferred Language en Marital Status Single Oriental Orthodox Affiliation Unknown Race White Ethnic Group Not or Lati no Author Organization [facility] ity Address [address] [place] [address] Care Team Providers Care Doctor Chiropractic Name Role Phone Lupe Perry DO Primary Care Provider [phone] Social History Tobacco Use Types Packs/Day Years [...] age to complete this topic Care Teams Doctor Chiropractic Relationship Specialty Start Date End Date Lupe Perry DO [address] [place] [address] PCP - General Family Medicine 10/10/16
== END 2025-06-03 10:16 | disposition home or self-care (01) ==
LOC: HO.HUSH 09:53
PROVIDERS: Visit Provider Urology
DX: Q54.9 Hypospadias, unspecified (principal); E29.1 Testicular hypofunction
CPT/HCPCS: 99214

== ENCOUNTER → 2025-06-03 09:52 | Outpatient (BNVA) | payer OTHER, SELFPAY | PROVIDERS: Visit Provider Urology | DX: Q54.9 Hypospadias, unspecified (principal); E29.1 Testicular hypofunction; N20.0 Calculus of kidney | CPT/HCPCS: 99212 ==

== ENCOUNTER 2025-07-04 10:37 | Outpatient (AMB) | payer OTHER, SELFPAY ==
--- NOTE | 2025-07-04 10:47 | MHC.OFFVIS ---
Intake Visit Reasons: OV - LT RTC repair 03/30/25 NE Intake Note: Yamil is a 39 year old left hand dominant male who presents today for a post operative appointment about 3 months s/p Left Rotator Cuff Repair 03/30/25. He continues to work with [facility] in [place]. Patient reports that about 1.5 weeks ago he had a few falls where he caught himself with the left arm, when this happened he had an intense burning pain in the shoulder. Since then the pain is still present or worsening and feels that he has regressed significantly. Denies numbness and tingling in the hand. He has cramping and loss of ROM. He is taking Tylenol and Ibuprofen which is not providing adequate relief. Allergies metoclopramide (From REGLAN) Allergy (Intermediate, Verified 06/03/25 09:58) AGITATION prochlorperazine (From COMPAZINE) Allergy (Intermediate, Verified 06/03/25 09:58) AGITATION diphenhydramine (From BENADRYL) Adverse Reaction (Intermediate, Verified 06/03/25 09:58) AGITATION HPI HPI OV - LT RTC repair 03/30/25 NE: Details: Yamil is a 39 year old left hand dominant male who presents today for a post operative appointment about 3 months s/p Left Rotator Cuff Repair 03/30/25. He continues to work with [facility] in [place]. Patient reports that about 1.5 weeks ago he had a few falls where he caught himself with the left arm, when this happened he had an intense burning pain in the shoulder. Since then the pain is still present or worsening and feels that he has regressed significantly. Denies numbness and tingling in the hand. He has cramping and loss of ROM. He is taking Tylenol and Ibuprofen which is not providing adequate relief. HPI Comments Details: Interval History The patient is a 39-year-old male presenting with follow-up for post-operative rehabilitation after left rotator cuff repair. The patient reports experiencing pain in the left shoulder, particularly after falling back onto it a couple of times in the past few weeks. He describes the pain as severe, especially in certain positions, and notes difficulty in moving the shoulder above a certain level. The patient has been attending physical therapy and is working on improving his range of motion, although he acknowledges that progress has been slow. He mentions that his external rotation is moving well, but overall motion could be better. The patient is not currently working and is on SSDI due to migraines from his previous job. Results [facility] Medical History HTN (hypertension) Thiamin deficiency Vitamin D deficiency Left shoulder pain Decreased range of motion of shoulder Spondylosis Anemia Primary hypertension Obstructive sleep apnea Class 2 severe obesity with body mass index (BMI) of 35 to 39.9 with serious comorbidity Kidney stone Migraine Afib Depression Anxiety GERD (gastroesophageal reflux disease) Pneumonia Surgical History History of shoulder surgery History of cystoscopy History of wisdom tooth extraction Hx of cholecystectomy Hx of appendectomy Family History Other Diabetes HTN (hypertension) Substance use disorder Social History Housing: Apartment Are you a primary sub acute care nurse to a significant other at home: No Do you presently have visiting nurse or other home services: No Alcohol intake: current Alcohol intake frequency: holidays/special occasions only Comment: COUNTS CORRECT Patient Tobacco Use Status: Never used Tobacco e-Cigarette/Vaping Use: Never Used Second Hand Smoke Exposure: No Substance Use Type: Marijuana Advance Directives Date on File: 05/01/20 service: No Current occupational status: disabled Cognitive needs: No Hearing needs: No Vision needs: Yes (glasses) Physical Exam Exam Exam: Physical Exam 30/85/hip pocket Passive and active abduction to 90 degrees. Pain fall but negative empty can. External rotation to 30 degrees. Portals clean dry and intact Assessment & Plan Assessment & Plan (1) Status post left rotator cuff repair: Code(s): Z98.890 - Other specified postprocedural states Category: Surgical Plan Plan 1. Post-Operative Recovery Following Left Rotator Cuff Repair Continue with physical therapy focusing on improving range of motion and strength in the left shoulder. Emphasize exercises such as wall walks with both hands forward and on the side to enhance shoulder mobility. Advise the patient to avoid activities that may lead to falls or further injury to the shoulder. Schedule a follow-up appointment in three months to assess progress and adjust the rehabilitation plan as needed. 2. Limited Range Of Motion In The Left Shoulder This is to be expected postoperatively. I encouraged continued adherence to prescribed physical therapy regimen to improve shoulder mobility. Monitor for any signs of re-injury or complications, and instruct the patient to report any significant changes in symptoms. 3. Pain In The Left Shoulder Following Recent Falls Reassure the patient that some soreness is expected post-operatively, especially after minor falls, but improvement should be noted over time. Instruct the patient to use pain management strategies as needed, including rest and [id number] analgesics, while avoiding activities that exacerbate pain. Discussion Notes The patient expressed concerns about potentially re-injuring the shoulder after recent falls, and reassurance was provided that while re-injury is possible, it is unlikely given the current symptoms. The importance of adhering to the physical therapy regimen was emphasized, with specific exercises recommended to improve shoulder mobility. The patient was advised to avoid activities that could lead to falls and to monitor for any significant changes in symptoms, reporting them promptly. A follow-up appointment was scheduled for three months to evaluate progress and make necessary adjustments to the rehabilitation plan. Coding Level of Care Code Global (99705) Diagnoses Status post left rotator cuff repair Z98.890
--- OUTSIDE RECORDS SUMMARY | 2025-07-04 13:05 | XMS_ITS | Clinical Summary ---
Demographics Address [address] [place] [address] Home Phone Work Phone Mobile Phone Home Phone Preferred Language en Marital Status Single Taoism Affiliation Unknown Race White Ethnic Group Not or Lati no Author Organization [facility] ity Address [address] [place] [address] Care Team Providers Care Marker Maker Name Role Phone Lupe Perry DO Primary Care Provider [phone] Social History Tobacco Use Types Packs/Day Years [...] age to complete this topic Care Teams Marker Maker Relationship Specialty Start Date End Date Lupe Perry DO [address] [place] [address] PCP - General Family Medicine 10/10/16
--- OUTSIDE RECORDS SUMMARY | 2025-07-04 13:05 | XMS_ITS | Encounter Summary ---
Author Organization [facility] Address [address] [place] [address] Phone Care Team Providers Care Quirk Sander Name Role Phone Pcp, Unknown Primary Care Provider Unavailabl e Unknown, Unknown MD Primary Care Provider Marcel Suarez MD Primary Care Provid er Encounter Details Date Type Department Care Team (Latest Contact Info) Description 02/01/2016 Ancillary Orders [facility] [address] [place] [phone] Oswaldo Reilly PA-C [address] [place] [phone] [email or web address] Syncope, unspecified (Primary Dx) Social History [...] Primary documented in this encounter Care Teams Quirk Sander Relationship Specialty Start Date End Date Pcp, Unknown PCP - General 01/12/16 02/20/18 Unknown, Unknown, PCP - General 02/21/18 09/15/23 Marcel Cruz MD [address] [place] [id number] PCP - General Internal Medicine 09/16/23 documented as of this encounter Additional Source Comments The information contained in this document represents components of the legal health record. It is not the complete legal health record.[facility]
--- OUTSIDE RECORDS SUMMARY | 2025-07-04 13:05 | XMS_ITS | Clinical Summary ---
Demographics Address [address] [place] [address] Mobile Phone Home Phone Email Address Preferred Language Welsh Marital Status /Civil Union Religion Affiliation Unknown Race White Ethnic Group Not or Lati no Author Organization [facility] Address [address] [address] Phone Support Name Relationship Address Phone Dyana Willson Personal Relationship [address] [place] [address] Care Team Providers Care Systems Test Technician Name Role Phone Marcel Cruz MD Primary [...] day 90 capsule 4 4 Active rizatriptan ([employer]) 10 MG disintegrating tablet TAKE 1 TABLET [...] EDT) SODIUM 139 135 - 145 mmol/L [facility] DEPARTMENT OF PATHOLOGY POTASSIUM 4.0 3.4 - 5.0 mmol/L [facility]OLOG[facility] CHLORIDE 100 98 - 108 mmol/L [facility]OLOG[facility] CO2 28 23 - 32 mmol/L [facility] BUN 10 8 - 25 mg/dL [facility]OLOG[facility] CREATININE 0.84 0.60 - 1.50 mg/dL [facility]OLOG[facility] GLUCOSE 96 70 - 110 mg/dL [facility]OLOG[facility] CALCIUM 9.0 8.5 - 10.5 mg/dL [facility] PATHOLOGY EGFR >60 mL/min/1.7 3m2 [facility] Comment:Abnormal if <60 mL/m in/1.73m2. If patient is -Haitian, multiply the result by 1.21. ANION GAP 11 3 - 17 mmol/L [facility] PATHOLOG[facility] Blood 01/31/2016 2:14 AM EDT 01/31/2016 2:27 AM EDT us Val Solano PA-C LAB BLOOD BKR ORDERABLES F inal Result [facility] DEPARTMENT OF PATHOLOGY [address] [place] [phone] from Last 3 Months or Most Recently Relevant to Health Maintenance Insurance [address] [address] MEDICARE PART A & B [facility] ONE CARE MEDICARE REPLACEMENT MEDICARE PART A & B ONE [facility] MEDICARE REPLACEMENT MEDICARE PART A & B MEDICARE PART A & B * Guarantor: Yamil Quarles Account Type Relation to Patient Date of Phone Billing Address Personal/Family Self 1985 [address] [place], [place] MEDICARE PART A & B ONE CARE MEDICARE REPLACEMENT * Guarantor: Yamil Quarles Account Type Relation to Patient Date of Phone Billing Address Personal/Family Self 1985 [address] [place], [place] MEDICARE PART A & B MEDICARE PART A & B ONE CARE MEDICARE REPLACEMENT SHIVANI PENA [address] MEDICARE PART A & B [facility] ONE CARE MEDICARE REPLACEMENT [address] [address] MEDICARE PART A & B [facility] ONE CARE MEDICARE REPLACEMENT Care Teams Systems Test Technician Relationship Specialty Start Date End Date Marcel Cruz MD [address] [place] [id number] PCP - General Internal Medicine 3/5/24 Additional Source Comments The information contained in this document represents components of the legal health record. It is not the complete legal health record.[facility]
--- OUTSIDE RECORDS SUMMARY | 2025-07-04 13:05 | XMS_ITS | Encounter Summary ---
Demographics Address [address] [place] [address] Mobile Phone Home Phone Email Address Preferred Language Yakut Marital Status /Civil Union Moravian Affiliation Unknown Race White Ethnic Group Not or Lati no Author Organization [facility] Address [address] [place] [address] Phone Support Name Relationship Address Phone Dyana Willson Personal Relationship [address] [place] [address] Care Team Providers Care Border Police Name Role Phone Unknown, Unknown Primary Care Provider Marcel Suarez MD Primary Care Provid er Encounter Details Date Type Department Care Team (Late st Contact Info) Description 02/21/2018 Procedure Pass [facility] [place], [place] [address] [facility], [address] [place] [address] Social History Tobacco Use Types Packs/Day Years [...] on filedocumented in this encounter Care Teams Border Police Relationship Specialty Start Date End Date Unknown, Unknown, MD PCP - General 02/21/18 09/15/23 Marcel Cruz MD [address] [place] [address] PCP - General Internal Medicine 09/16/23 documented as of this encounter Additional Source Comments The information contained in this document represents components of the legal health record. It is not the complete legal health record.[facility]
== END 2025-07-04 11:05 | disposition home or self-care (01) ==
LOC: HO.HOS 10:37
PROVIDERS: PCP Internal Medicine; Visit Provider Orthopaedic Surgery
DX: M25.512 Pain in left shoulder (principal); Z98.890 Other specified postprocedural states
CPT/HCPCS: 99213

== ENCOUNTER → 2025-07-04 10:37 | Outpatient (BNVA) | payer OTHER, SELFPAY | PROVIDERS: PCP Internal Medicine; Visit Provider Orthopaedic Surgery | DX: M25.512 Pain in left shoulder (principal); Z98.890 Other specified postprocedural states | CPT/HCPCS: 99212 ==